=== PATIENT | female | born 1955 | race Two or more races ===

== ENCOUNTER 2020-01-01 12:50 | Outpatient (REF) | payer OTHER, SELFPAY | END 2020-01-01 12:51 | disposition home or self-care (01) | LOC: HO.LAB 12:50 | PROVIDERS: PCP Internal Medicine; Visit Provider Internal Medicine | DX: Z20.828 Contact with and (suspected) exposure to other viral communicable diseases (principal) | CPT/HCPCS: 87635 ==

== ENCOUNTER 2020-01-06 12:38 | Outpatient (REF) | payer OTHER, SELFPAY ==
[2020-01-06 14:04] LABS: MANUAL DIFF FLAG NO
[2020-01-06 14:08] LABS: Basophils Percent Auto 0.5 % (0-2); Eosinophils Absolute Auto 0.1 X10*3/uL (0.0-0.4); Eosinophils Percent Auto 1.6 % (0-4); Hematocrit 35.6 % (37-47); Hemoglobin 11.3 g/dl (12.0-16.0); Imm Gran Abs Auto 0.01 X10*3/uL (0.00-0.03); Imm Gran Pct Auto 0.2 % (0.0-0.4); Lymphocytes Percent Auto 16.1 % (20-40); Mean Corpuscular HGB Conc 31.7 g/dl (31.0-35.0); Mean Corpuscular Hemoglobin 28.9 pg (27.0-33.0); Mean Platelet Volume 9.8 fL (9.4-12.3); Monocytes Absolute Auto 0.5 X10*3/uL (0.1-1.2); Neutrophils Absolute Auto 4.5 X10*3/uL (2.0-8.3); Neutrophils Percent Auto 73.6 % (45-73); Platelet Count 259 X10*3/uL (160-400); Red Blood Count 3.91 X10*6/uL (4.20-5.50); Red Cell Distribution Width 13.2 % (11.0-16.0); White Blood Count 6.2 X10*3/uL (4.8-10.8)
[2020-01-06 14:39] LABS: Alanine Aminotransferase 34 U/L (0-31); Albumin Level 4.3 g/dL (3.5-5.0); Alkaline Phosphatase 104 U/L (39-117); Anion Gap 12 (12-20); Aspartate Amino Transferase 21 U/L (5-31); Bilirubin Total 0.5 mg/dL (0.0-1.0); Blood Urea Nitrogen 13 mg/dL (9-16); C Reactive Protein 0.86 mg/dL (< or = 0.50); Carbon Dioxide 28 mmol/L (22-29); Chloride 105 mmol/L (96-108); Estimated Glomerular Filt Rate > 60; Glucose Random 87 mg/dL (60-115); Potassium 4.2 mmol/l (3.3-5.1); Sodium 141 mmol/L (135-145); Total Protein 7.2 g/dL (6.5-8.0)
[2020-01-06 14:56] LABS: Erythrocyte Sedimentation Rate 34 MM/HR (0-20)
== END 2020-01-06 12:39 | disposition home or self-care (01) ==
LOC: HO.LAB 12:38
PROVIDERS: PCP Internal Medicine; Referring Provider Internal Medicine; Visit Provider Student in an Organized Health Care Education/Training Program
DX: M05.9 Rheumatoid arthritis with rheumatoid factor, unspecified (principal)
CPT/HCPCS: 36415; 80053; 85025; 85652; 86140; 99212

== ENCOUNTER 2020-04-01 17:29 | Outpatient (REF) | payer OTHER, SELFPAY | END 2020-04-01 17:30 | disposition home or self-care (01) | LOC: HO.LAB 17:29 | PROVIDERS: PCP Internal Medicine; Visit Provider Internal Medicine | DX: Z20.822 Contact with and (suspected) exposure to COVID-19 (principal) | CPT/HCPCS: 36415; C9803; U0003 ==

== ENCOUNTER → 2020-04-07 12:33 | Outpatient (BNVA) | payer OTHER, SELFPAY | PROVIDERS: PCP Internal Medicine; Referring Provider Internal Medicine; Visit Provider Student in an Organized Health Care Education/Training Program ==

== ENCOUNTER → 2020-05-19 14:39 | Outpatient (BNVA) | payer OTHER, SELFPAY | PROVIDERS: PCP Internal Medicine; Visit Provider Anesthesiology | DX: M05.9 Rheumatoid arthritis with rheumatoid factor, unspecified (principal); M85.80 Other specified disorders of bone density and structure, unspecified site; M17.0 Bilateral primary osteoarthritis of knee; M54.9 Dorsalgia, unspecified; Z79.899 Other long term (current) drug therapy | CPT/HCPCS: 99212 ==

== ENCOUNTER → 2020-06-07 08:32 | Outpatient (BNVA) | payer OTHER, SELFPAY | PROVIDERS: PCP Internal Medicine; Visit Provider Family Medicine Adult Medicine | DX: M05.9 Rheumatoid arthritis with rheumatoid factor, unspecified (principal); M85.80 Other specified disorders of bone density and structure, unspecified site; M17.0 Bilateral primary osteoarthritis of knee; M54.9 Dorsalgia, unspecified | CPT/HCPCS: 99212 ==

== ENCOUNTER 2020-06-27 12:10 | Outpatient (REF) | payer OTHER, SELFPAY ==
[2020-06-27 12:47] LABS: COVID-19 Test Negative (Negative)
== END 2020-06-27 12:11 | disposition home or self-care (01) ==
LOC: HO.LAB 12:10
PROVIDERS: Visit Provider Internal Medicine
DX: Z20.822 Contact with and (suspected) exposure to COVID-19 (principal)
CPT/HCPCS: 36415; 87635; C9803

== ENCOUNTER → 2020-07-06 16:33 | Outpatient (BNVA) | payer OTHER, SELFPAY | PROVIDERS: PCP Internal Medicine; Visit Provider Anesthesiology | DX: M17.0 Bilateral primary osteoarthritis of knee (principal); M05.9 Rheumatoid arthritis with rheumatoid factor, unspecified; M85.80 Other specified disorders of bone density and structure, unspecified site; Z79.899 Other long term (current) drug therapy | CPT/HCPCS: 99212 ==

== ENCOUNTER 2020-07-07 12:34 | Outpatient (REF) | payer OTHER, SELFPAY ==
--- NOTE | ~2020-07-07 | XR_ITS ---
EXAMINATION: XR KNEE, RIGHT XR KNEE, LEFT CLINICAL INFORMATION: Rheumatoid arthritis. COMPARISON: X-ray 02/13/2019. TECHNIQUE: Bilateral knees each 3 views. FINDINGS: LEFT KNEE: Yrlojelw-fs-bnhppp joint space loss in the medial compartment, moderate joint space loss in the lateral compartment and patellofemoral compartment. Subchondral cyst in the medial femoral condyle. Moderate to large effusion. No acute fracture or dislocation. RIGHT KNEE: Moderate medial greater than lateral compartment joint space loss. Moderate patellofemoral joint space loss. Moderate to large effusion. No acute fracture or dislocation. XR/XR knee RT 3V IMPRESSION: Left Knee: Tricompartment osteoarthritis, most prominent findings of vieghmio-jv-oitmes arthritis in the medial compartment. Interval progression from previous. Moderate to large effusion. Right Knee: Tricompartment osteoarthritis. More prominent changes of moderate arthritis in the medial compartment. Interval progression from previous. Moderate to large effusion.
--- NOTE | ~2020-07-07 | XR_ITS ---
EXAMINATION: XR KNEE, RIGHT XR KNEE, LEFT CLINICAL INFORMATION: Rheumatoid arthritis. COMPARISON: X-ray 02/13/2019. TECHNIQUE: Bilateral knees each 3 views. FINDINGS: LEFT KNEE: Nmanbwsd-nd-gpoxvw joint space loss in the medial compartment, moderate joint space loss in the lateral compartment and patellofemoral compartment. Subchondral cyst in the medial femoral condyle. Moderate to large effusion. No acute fracture or dislocation. RIGHT KNEE: Moderate medial greater than lateral compartment joint space loss. Moderate patellofemoral joint space loss. Moderate to large effusion. No acute fracture or dislocation. XR/XR knee LT 3V IMPRESSION: Left Knee: Tricompartment osteoarthritis, most prominent findings of nldylkjy-na-fyxygy arthritis in the medial compartment. Interval progression from previous. Moderate to large effusion. Right Knee: Tricompartment osteoarthritis. More prominent changes of moderate arthritis in the medial compartment. Interval progression from previous. Moderate to large effusion.
[2020-07-07 14:30] LABS: MANUAL DIFF FLAG NO
[2020-07-07 14:39] LABS: Basophils Percent Auto 0.6 % (0-2); Eosinophils Absolute Auto 0.1 X10*3/uL (0.0-0.4); Eosinophils Percent Auto 1.7 % (0-4); Hematocrit 35.2 % (37-47); Hemoglobin 11.3 g/dl (12.0-16.0); Imm Gran Abs Auto 0.02 X10*3/uL (0.00-0.03); Imm Gran Pct Auto 0.4 % (0.0-0.4); Lymphocytes Absolute Auto 1.1 X10*3/uL (1.2-4.9); Lymphocytes Percent Auto 20.6 % (20-40); Mean Corpuscular HGB Conc 32.1 g/dl (31.0-35.0); Mean Corpuscular Hemoglobin 28.4 pg (27.0-33.0); Mean Corpuscular Volume 88.4 fL (80-98); Mean Platelet Volume 9.5 fL (9.4-12.3); Monocytes Absolute Auto 0.5 X10*3/uL (0.1-1.2); Neutrophils Absolute Auto 3.5 X10*3/uL (2.0-8.3); Neutrophils Percent Auto 66.7 % (45-73); Platelet Count 334 X10*3/uL (160-400); Red Blood Count 3.98 X10*6/uL (4.20-5.50); Red Cell Distribution Width 13.7 % (11.0-16.0); White Blood Count 5.3 X10*3/uL (4.8-10.8)
[2020-07-07 15:24] LABS: Alanine Aminotransferase 10 U/L (0-31); Albumin Level 4.2 g/dL (3.5-5.0); Alkaline Phosphatase 106 U/L (39-117); Anion Gap 15 (12-20); Aspartate Amino Transferase 16 U/L (5-31); Bilirubin Total 0.3 mg/dL (0.0-1.0); Blood Urea Nitrogen 8 mg/dL (9-16); C Reactive Protein 3.71 mg/dL (< or = 0.50); Carbon Dioxide 25 mmol/L (22-29); Chloride 104 mmol/L (96-108); Estimated Glomerular Filt Rate > 60; Glucose Random 96 mg/dL (60-115); Potassium 3.8 mmol/L (3.3-5.1); Sodium 140 mmol/L (135-145); Total Protein 7.4 g/dL (6.5-8.0)
[2020-07-07 16:22] LABS: Erythrocyte Sedimentation Rate 55 MM/HR (0-20)
== END 2020-07-07 12:35 | disposition home or self-care (01) ==
LOC: HO.XRAY 12:34
PROVIDERS: PCP Internal Medicine; Visit Provider Student in an Organized Health Care Education/Training Program
DX: M05.9 Rheumatoid arthritis with rheumatoid factor, unspecified (principal); M85.80 Other specified disorders of bone density and structure, unspecified site
CPT/HCPCS: 36415; 73562; 80053; 85025; 85652; 86140; 99212

== ENCOUNTER 2020-07-28 12:40 | Outpatient (REF) | payer OTHER, SELFPAY | END 2020-07-28 12:41 | disposition home or self-care (01) | LOC: HO.HOSX 12:40 | PROVIDERS: Visit Provider Orthopaedic Surgery | DX: Z13.89 Encounter for screening for other disorder (principal) ==

== ENCOUNTER → 2020-08-03 09:37 | Outpatient (BNVA) | payer OTHER, SELFPAY | PROVIDERS: PCP Internal Medicine; Visit Provider Anesthesiology | DX: M05.9 Rheumatoid arthritis with rheumatoid factor, unspecified (principal); M85.80 Other specified disorders of bone density and structure, unspecified site; M17.0 Bilateral primary osteoarthritis of knee; M54.9 Dorsalgia, unspecified | CPT/HCPCS: 99212 ==

== ENCOUNTER → 2020-08-31 10:32 | Outpatient (BNVA) | payer OTHER, SELFPAY | PROVIDERS: PCP Internal Medicine; Visit Provider Anesthesiology | DX: M05.9 Rheumatoid arthritis with rheumatoid factor, unspecified (principal); M85.80 Other specified disorders of bone density and structure, unspecified site; M17.0 Bilateral primary osteoarthritis of knee; M54.9 Dorsalgia, unspecified | CPT/HCPCS: 99212 ==

== ENCOUNTER 2020-09-02 15:02 | Outpatient (REF) | payer OTHER, SELFPAY ==
--- NOTE | ~2020-09-02 | MM_ITS ---
EXAMINATION: BONE DENSITOMETRY CLINICAL INDICATION: Osteopenia. COMPARISON: Baseline BD dated 08/21/2018. TECHNIQUE: Using a 91 [employer] DXA System (software version: 13.1) manufactured by [employer], dual-energy x-ray absorptiometry was performed of the lumbar spine and left hip. The images are of good technical quality. Summary results are attached. FINDINGS: AP SPINE L1-L2 (excluding L3 and L4): The data of L1-L4 has been changed to exclude the L3 and L4 vertebral bodies, because degenerative changes at these levels may cause overestimation of lumbar spine density. Current: BMD 1.068 g/cm2, Z-score 0.3, T-score -0.8, normal, 5.3% increase from baseline (<5% change is not significant). Baseline: BMD 1.014 g/cm2. LEFT FEMUR, NECK: Current: BMD 0.753 g/cm2, Z-score -0.9, T-score -2.1, osteopenia. Baseline: BMD 0.762 g/cm2. LEFT FEMUR, TOTAL: Current: BMD 0.752 g/cm2, Z-score -1.2, T-score -2.0, osteopenia, 0.4% increase from baseline (<5% change is not significant). Baseline: BMD 0.749 g/cm2. IDENTIFIED RISK FACTORS: Menopause, height loss, glucocorticoids (chronic), rheumatoid arthritis. HISTORY OF FRACTURE: None listed. MEDICATIONS: Calcium. MM/XR DEXA axial skeleton IMPRESSION: 1. DIAGNOSIS: Osteopenia based on the lowest T-score value of -2.1 in the femoral neck applying World Health Organization criteria. 2. 10-YEAR FRACTURE RISK PREDICTION, FRAX: Major osteoporotic fracture (clinical spine, forearm, hip or shoulder) 21.1%. Hip fracture 4.0%. 3. Treatment Recommendations: NOF guidelines recommend consideration for treatment in postmenopausal women and men age 50 and older presenting with the following: -A hip or vertebral (clinical or morphometric) fracture. -T-score less than or equal to -2.5 at the femoral neck or spine after appropriate evaluation to exclude secondary causes. -Low bone mass at the hip or spine and a 10-year fracture probability by FRAX of greater than or equal to 3% for hip fracture or greater than or equal to 20% for major osteoporotic fracture based on the [place] adapted WHO algorithm. 4. Other Recommendations: All treatment decisions require clinical judgment and consideration of individual patient factors, including patient preferences, comorbidities, previous drug use, risk factors not captured in the FRAX model (e.g. frailty, falls, vitamin D deficiency, increased bone turnover, interval significant decline in bone density) and possible under or overestimation of fracture risk by FRAX. Additional medical evaluation for secondary cause of low bone mineral density may be appropriate. FUTURE SCAN RECOMMENDATION: People with diagnosed cases of osteoporosis or at high risk for fracture should have regular bone mineral density tests. For patients eligible for Medicare, routine testing is allowed once every 2 years. The testing frequency can be increased to one year for patients who have rapidly progressing disease, those who are receiving or discontinuing medical therapy to restore bone mass, or have additional risk factors.
== END 2020-09-02 15:03 | disposition home or self-care (01) ==
LOC: HO.MAMMO 15:02
PROVIDERS: Visit Provider Student in an Organized Health Care Education/Training Program
DX: Z13.820 Encounter for screening for osteoporosis (principal); M85.80 Other specified disorders of bone density and structure, unspecified site; Z78.0 Asymptomatic menopausal state; Z79.52 Long term (current) use of systemic steroids; M06.9 Rheumatoid arthritis, unspecified
CPT/HCPCS: 77080

== ENCOUNTER → 2020-09-15 11:10 | Outpatient (BNVA) | payer OTHER, SELFPAY | PROVIDERS: PCP Internal Medicine; Visit Provider Anesthesiology | DX: Z51.81 Encounter for therapeutic drug level monitoring (principal) | CPT/HCPCS: 99211 ==

== ENCOUNTER → 2020-09-28 10:32 | Outpatient (BNVA) | payer OTHER, SELFPAY | PROVIDERS: PCP Internal Medicine; Visit Provider Nurse Practitioner Family | DX: M05.9 Rheumatoid arthritis with rheumatoid factor, unspecified (principal); M85.80 Other specified disorders of bone density and structure, unspecified site; M17.0 Bilateral primary osteoarthritis of knee; M54.9 Dorsalgia, unspecified; Z79.899 Other long term (current) drug therapy | CPT/HCPCS: 99212 ==

== ENCOUNTER → 2020-11-02 14:04 | Outpatient (BNVA) | payer OTHER, SELFPAY | PROVIDERS: PCP Internal Medicine; Visit Provider Anesthesiology | DX: M05.9 Rheumatoid arthritis with rheumatoid factor, unspecified (principal); M85.80 Other specified disorders of bone density and structure, unspecified site; M17.0 Bilateral primary osteoarthritis of knee; M54.9 Dorsalgia, unspecified | CPT/HCPCS: 99212 ==

== ENCOUNTER → 2020-11-28 08:36 | Outpatient (BNVA) | payer OTHER, SELFPAY | PROVIDERS: PCP Internal Medicine; Visit Provider Anesthesiology | DX: M05.9 Rheumatoid arthritis with rheumatoid factor, unspecified (principal); M85.80 Other specified disorders of bone density and structure, unspecified site; M17.0 Bilateral primary osteoarthritis of knee; M54.9 Dorsalgia, unspecified | CPT/HCPCS: 99212 ==

== ENCOUNTER → 2020-12-28 08:38 | Outpatient (BNVA) | payer OTHER, SELFPAY | PROVIDERS: PCP Internal Medicine; Visit Provider Anesthesiology | DX: Z51.81 Encounter for therapeutic drug level monitoring (principal); M05.9 Rheumatoid arthritis with rheumatoid factor, unspecified; M85.80 Other specified disorders of bone density and structure, unspecified site; M17.0 Bilateral primary osteoarthritis of knee; M54.9 Dorsalgia, unspecified | CPT/HCPCS: 99212 ==

== ENCOUNTER → 2021-01-11 08:53 | Outpatient (BNVA) | payer OTHER, SELFPAY | PROVIDERS: PCP Internal Medicine; Visit Provider Nurse Practitioner Family | DX: M05.9 Rheumatoid arthritis with rheumatoid factor, unspecified (principal); M85.80 Other specified disorders of bone density and structure, unspecified site | CPT/HCPCS: 99212 ==

== ENCOUNTER → 2021-01-25 08:40 | Outpatient (BNVA) | payer OTHER, SELFPAY | PROVIDERS: PCP Internal Medicine; Visit Provider Anesthesiology | DX: Z51.81 Encounter for therapeutic drug level monitoring (principal); M05.9 Rheumatoid arthritis with rheumatoid factor, unspecified; M85.80 Other specified disorders of bone density and structure, unspecified site; M17.0 Bilateral primary osteoarthritis of knee; M54.9 Dorsalgia, unspecified | CPT/HCPCS: 99212 ==

== ENCOUNTER → 2021-02-22 08:53 | Outpatient (BNVA) | payer OTHER, SELFPAY | PROVIDERS: PCP Internal Medicine; Visit Provider Anesthesiology ==

== ENCOUNTER 2021-03-27 13:48 | Outpatient (REF) | payer OTHER, SELFPAY ==
[2021-03-27 14:36] LABS: MANUAL DIFF FLAG NO
[2021-03-27 14:43] LABS: Basophils Percent Auto 0.6 % (0-2); Eosinophils Absolute Auto 0.2 X10*3/uL (0.0-0.4); Hematocrit 35.1 % (37.0-47.0); Hemoglobin 11.5 g/dl (12.0-16.0); Imm Gran Abs Auto 0.02 X10*3/uL (0.00-0.03); Imm Gran Pct Auto 0.4 % (0.0-0.4); Lymphocytes Absolute Auto 1.2 X10*3/uL (1.2-4.9); Mean Corpuscular HGB Conc 32.8 g/dl (31.0-35.0); Mean Corpuscular Hemoglobin 28.2 pg (27.0-33.0); Mean Platelet Volume 9.7 fL (9.4-12.3); Monocytes Absolute Auto 0.5 X10*3/uL (0.1-1.2); Monocytes Percent Auto 9.8 % (2-11); Neutrophils Absolute Auto 3.5 x10*3/uL (2.0-8.3); Neutrophils Percent Auto 64.2 % (45-73); Platelet Count 297 X10*3/uL (160-400); Red Blood Count 4.08 X10*6/uL (4.20-5.50); Red Cell Distribution Width 14.6 % (11.0-16.0); White Blood Count 5.4 X10*3/uL (4.8-10.8)
[2021-03-27 15:08] LABS: Alanine Aminotransferase 8 U/L (0-31); Albumin Level 4.1 g/dL (3.5-5.0); Alkaline Phosphatase 81 U/L (39-117); Anion Gap 12 (12-20); Aspartate Amino Transferase 17 U/L (5-31); Bilirubin Total 0.4 mg/dL (0.0-1.0); Blood Urea Nitrogen 8 mg/dL (9-16); C Reactive Protein 0.88 mg/dL (< or = 0.50); Calcium 9.5 mg/dL (8.4-10.2); Carbon Dioxide 28 mmol/L (22-29); Chloride 105 mmol/L (96-108); Cholesterol 199 mg/dL; Estimated Glomerular Filt Rate > 60; Glucose Fasting 103 mg/dL (60-99); HDL Cholesterol 34 mg/dL; LDL Cholesterol Calculated 133 mg/dl; Potassium 3.9 mmol/L (3.3-5.1); Sodium 141 mmol/L (135-145); Total Protein 7.2 g/dL (6.5-8.0); Triglycerides 161 mg/dL
[2021-03-27 15:20] LABS: Erythrocyte Sedimentation Rate 31 MM/HR (0-20)
== END 2021-03-27 13:49 | disposition home or self-care (01) ==
LOC: HO.LAB 13:48
PROVIDERS: PCP Internal Medicine; Visit Provider Nurse Practitioner Family
DX: Z00.00 Encounter for general adult medical examination without abnormal findings (principal); Z13.0 Encounter for screening for diseases of the blood and blood-forming organs and certain disorders involving the immune mechanism; M05.9 Rheumatoid arthritis with rheumatoid factor, unspecified
CPT/HCPCS: 36415; 80053; 80061; 84443; 85025; 85652; 86140

== ENCOUNTER 2021-04-17 08:46 | Outpatient (REF) | payer OTHER, SELFPAY | END 2021-04-17 08:47 | disposition home or self-care (01) | LOC: HO.LAB 08:46 | PROVIDERS: PCP Internal Medicine; Visit Provider Internal Medicine | DX: Z20.822 Contact with and (suspected) exposure to COVID-19 (principal); R09.89 Other specified symptoms and signs involving the circulatory and respiratory systems; M05.9 Rheumatoid arthritis with rheumatoid factor, unspecified; M85.80 Other specified disorders of bone density and structure, unspecified site; M17.0 Bilateral primary osteoarthritis of knee | CPT/HCPCS: 99212; U0003; U0005 ==

== ENCOUNTER → 2021-06-20 10:23 | Outpatient (BNVA) | payer OTHER, SELFPAY | PROVIDERS: PCP Internal Medicine; Visit Provider Nurse Practitioner Family | DX: M17.0 Bilateral primary osteoarthritis of knee (principal); M05.9 Rheumatoid arthritis with rheumatoid factor, unspecified; Z79.899 Other long term (current) drug therapy | CPT/HCPCS: 99212 ==

== ENCOUNTER 2021-07-12 13:11 | Emergency (ER) | payer OTHER, SELFPAY ==
[2021-07-12 13:56] VITALS: BP 143/68; PULSE 77; RESP 16; TEMP 36.2; O2SAT 99; BMI 26.2
--- NOTE | 2021-07-12 14:22 | ED_ITS ---
HPI - General Adult General Chief complaint: General Medical Stated complaint: covid + bones ache Time Seen by Provider: 07/12/21 14:21 Source: patient Mode of arrival: ambulatory Limitations: no limitations History of Present Illness HPI narrative: Patient is a 66 year old female presenting to the emergency department today with chronic pain and COVID-19. Patient states that she has a history of chronic pain and was recently fired from her pain clinic. Patient states that she was on oxycodone 5mg BID as needed for pain for years before that. Patient states that the tramadol she is on currently isn't helping. Patient states that incidentally, she tested positive for COVID-19 today. Patient denies any dizziness, lightheadedness, abdominal pain, nausea, vomiting, fever, chills, blurry vision, double vision, loss of vision, chest pain, difficulty breathing, shortness of breath, back pain, night sweats, pain with urination, increased urinary frequency, increased urinary urgency, blood in her urine or stool, syncope or a near syncopal episode, recent trauma or falls, bowel incontinence, bladder incontinence, bowel retention, bladder retention, or any other complaints at this time. Onset (ago): year(s) Radiation: non-radiation Severity: moderate Severity scale (1-10): 6 Quality: dull and constant Pain Consistency: constant Relieving factors: none Exacerbating factors: none Associated symptoms: denies other symptoms Treatments prior to arrival: none Related Data Home Medications Medication Instructions Recorded Confirmed hydroxyzine HCl 25 mg tablet 25 mg PO BID PRN 07/08/21 Previous Rx's Medication Instructions Recorded clotrimazole-betamethasone 1 1 appl TOPICAL BID 14 Days #45 g 07/01/20 %-0.05 % topical cream naloxone 4 mg/actuation nasal 4 mg INTRANASAL Q2M PRN #2 ea 07/01/20 spray (Narcan) etanercept 50 mg/mL (1 mL) 50 mg SUBCUT QWEEK #4 ml 04/11/21 subcutaneous pen injector (Enfantasma Rivera) ferrous sulfate 325 mg (65 mg 325 mg PO DAILY #30 tab 04/21/21 iron) tablet,delayed release lorazepam 1 mg tablet 1 mg PO Q8H PRN #90 tab 06/13/21 lisinopril 10 mg tablet 10 mg PO DAILY #30 tab 07/08/21 tramadol 50 mg tablet 50 mg PO Q8H PRN #90 tab 07/11/21 oxycodone 5 mg tablet 5 mg PO BID PRN 3 Days #6 tab 07/12/21 Allergies Allergy/AdvReac Type Severity Reaction Status Date / Time buprenorphine [Belbuca] Allergy Intermediate nausea Verified 07/08/21 14:41 Review of Systems Constitutional: Constitutional: Reports no additional constitutional complaints, Denies chills, Denies fever(s) and Denies night sweats Eyes: Eyes: Reports no additional eye complaints, Denies blurry vision, Denies change in vision, Denies diplopia, Denies eye discharge, Denies loss of vision and Denies eye pain ENT: Denies dizziness Cardiovascular: Cardiovascular: Reports no additional cardiovascular complaints, Denies chest pain, Denies lightheadedness, Denies Loss of Consciousness and Denies dyspnea Respiratory: Respiratory: Reports no additional respiratory complaints and Denies dyspnea Gastrointestinal: Gastrointestinal: Reports no additional gastrointestinal complaints, Denies abdominal pain, Denies melena, Denies hematochezia, Denies change in bowel habits and Denies change in stool character Genitourinary: Genitourinary: Denies hematuria, Denies urinary frequency, Denies dysuria, Denies urinary incontinence, Denies urinary hesitancy and Denies urinary urgency Musculoskeletal: Musculoskeletal: Reports no additional musculoskeletal complaints, Denies numbness and Denies tingling Neurologic: Denies dizziness, Denies loss of vision, Denies numbness and Denies tingling Psychiatric: Psychiatric: Reports no additional psychiatric complaints Endocrine: Endocrine: Reports no additional endocrine complaints Hematologic/Lymphatic: Hematologic/Lymphatic: Reports no additional hematologic/lymphatic complaints Allergic/Immunologic: Allergic/Immunologic: Reports no additional allergic/immunologic complaints [facility] Past Medical History Attestation statement: The following information was validated with the patient. Source: old records reviewed Medical History Back pain Opiate abuse, episodic Osteoarthritis of both knees Osteopenia determined by x-ray Primary osteoarthritis of knees, bilateral Seropositive rheumatoid arthritis Surgical History History of appendectomy History of cholecystectomy History of D&C History of tonsillectomy Family History Family History Father Acute CVA (cerebrovascular accident) Mother Hypertension Hypercholesterolemia Brother Liver transplant status Family history of thyroid problem Social History Social History Housing: House Alcohol intake: never Patient Tobacco Use Status: Former Tobacco user e-Cigarette/Vaping Use: Never Used Second Hand Smoke Exposure: No Advance Directives: No Advance Directives Information Provided: No Current occupational status: employed Cognitive needs: No Hearing needs: No Vision needs: No Physical Exam ED Vital Signs: Vital Signs - 24 hr 07/12/21 13:56 Temperature 97.1 F Pulse Rate 77 Respiratory Rate 16 Blood Pressure 143/68 H Pulse Oximetry 99 BMI result Body Mass Index 26.2 Const General: cooperative, no acute distress, alert and awake Nutritional Appearance: well nourished Orientation/consciousness: patient oriented x3 Limitations: no limitations HENMT Head: Yes normal to inspection and Yes atraumatic Ears: hearing grossly normal bilaterally and external ears normal General nose exam: Normal external nose present, no nasal discharge noted and no epistaxis Face and sinus: Yes normal facial exam, No abrasion and No laceration Mouth: Normal oral and palatal mucosa present, no drooling and no muffled voice Eyes General: appearance normal, both eyes and all related structures Periorbital: periorbital findings normal Eyelids: Yes eyelids normal Conjunctivae: conjunctivae normal Pupils: Equal, round and reactive pupils present EOM: EOMs intact bilaterally Neck Neck: Yes normal visual inspection, Yes full ROM and Yes no lymphadenopathy Chest Chest palpation & inspection: normal inspection of the chest Resp Effort & Inspection: normal respiratory effort and able to speak in complete sentences Auscultation: clear to auscultation bilaterally Cardio Rate: regular rate Rhythm: regular rhythm GI Inspection: Yes normal to inspection Neuro General: patient oriented x3 and moves all extremities Cranial nerves: Yes Equal, round and reactive pupils present Cognition (Neuro): normal cognition Motor exam (neuro): 5/5 motor strength present throughout Sensory Exam: Normal double simultaneous stimulation for sensation Coordination: [id number]-[id number] test normal Extrem General: Yes normal to inspection, Yes full ROM and Yes capillary refill normal Psych Appearance: grossly normal Mental Status: mental status grossly normal Affect: normal affect Attitude: cooperative Thought process: Normal thought process present Thought content: Normal thought content present Insight: Good insight present (Psych) Medical Decision Making MDM Narrative Medical decision making narrative: Patient is a 66 year old female presenting to the emergency department today with chronic pain and COVID-19. Patient's physical exam was unremarkable. I explained my physical exam findings to the patient. I answered all questions asked by the patient. I explained to the patient that I would provide her a dose of Oxycodone today, and 3 days worth of tablets for her to get established with a new pain management provider. I explained to the patient that it is inappropriate to continue to come to the Emergency Department for chronic pain medication refills and that she needs to establish with a pain specialist. Patient received PO Oxycodone which she stated helped her symptoms significantly. I stressed the importance of the patient taking her medication as prescribed. I stressed the importance of the patient following up with her primary care provider and establishing with a new pain specialist. I stressed the importance of the patient returning to the emergency department immediately if her symptoms were to worsen or if she were to develop any dizziness, shortness of breath, difficulty breathing, chest pain, blurry vision, loss of vision, nausea, vomiting, abdominal pain, fever, chills, back pain, or any other complaints. Patient verbalized agreement and understanding with this treatment plan and discharge. Differential Diagnosis Differential Diagnosis: chronic pain Medical Records Medical records reviewed: Yes I reviewed the patient's medical records. Discharge Plan Discharge Clinical Impression: Chronic pain syndrome Patient Disposition: Home, Self-Care Instructions: Chronic Pain (ED) Additional Instructions: Follow up with your primary care provider and a pain specialist. Return to the emergency department immediately if your symptoms worsen or if you develop any dizziness, shortness of breath, difficulty breathing, chest pain, blurry vision, loss of vision, nausea, vomiting, abdominal pain, fever, chills, back pain, or any other complaints. Prescriptions: New oxycodone 5 mg tablet 5 mg PO BID PRN (Reason: pain) 3 Days Qty: 6 0RF No Action clotrimazole-betamethasone 1-0.05 % cream 1 appl topical BID 14 Days Qty: 45 0RF Narcan 4 mg/actuation spray,non-aerosol 4 mg intranasal Q2M PRN (Reason: opioid overdose) Qty: 2 0RF Rx Instructions: spray 1 dose into ONE nostril; alternate nostrils w each dose until help arrives Enbrel SureClick 50 mg/mL (1 mL) pen injector 50 mg subcut QWEEK Qty: 4 3RF ferrous sulfate 325 mg (65 mg iron) tablet,delayed release (DR/EC) 325 mg PO DAILY Qty: 30 5RF lorazepam 1 mg tablet 1 mg PO Q8H PRN (Reason: agitation) Qty: 90 5RF tramadol 50 mg tablet 50 mg PO Q8H PRN (Reason: pain) Qty: 90 0RF hydroxyzine HCl 25 mg tablet 25 mg PO BID PRN (Reason: anxiety) 0RF lisinopril 10 mg tablet 10 mg PO DAILY Qty: 30 0RF [place] [facility] [place] [facility] [place]Provider Group] (Call and get established with a pain specialist. ) [facility] [Provider Group] [place] [facility] Pain Management [Outside] Pain Management [Outside] Naveen Urias MD [Primary Care Provider] - Interventions: ED Discharge Assessment Last Done: 07/12/21 15:11 Discharge Date/Time: 07/12/21 15:18 Print Language: Burkinan
[2021-07-12] MEDS: oxyCODONE HCl Immed Release 5 MG TABLET PO (15:08)
== END 2021-07-12 15:18 | disposition home or self-care (01) ==
PROVIDERS: Emergency Provider Emergency Medicine; PCP Internal Medicine
DX: G89.4 Chronic pain syndrome (principal); U07.1 COVID-19; M05.9 Rheumatoid arthritis with rheumatoid factor, unspecified
CPT/HCPCS: 99283

== ENCOUNTER 2021-08-03 17:10 | Outpatient (REF) | payer OTHER, SELFPAY ==
[2021-08-03 17:16] LABS: MANUAL DIFF FLAG NO
[2021-08-03 17:31] LABS: Basophils Percent Auto 0.5 % (0-2); Eosinophils Absolute Auto 0.2 X10*3/uL (0.0-0.4); Eosinophils Percent Auto 2.8 % (0-4); Hematocrit 32.3 % (37.0-47.0); Imm Gran Abs Auto 0.01 X10*3/uL (0.00-0.03); Imm Gran Pct Auto 0.2 % (0.0-0.4); Lymphocytes Absolute Auto 1.3 X10*3/uL (1.2-4.9); Lymphocytes Percent Auto 21.6 % (20-40); Mean Corpuscular Hemoglobin 26.3 pg (27.0-33.0); Mean Platelet Volume 9.2 fL (9.4-12.3); Monocytes Absolute Auto 0.7 X10*3/uL (0.1-1.2); Monocytes Percent Auto 11.1 % (2-11); Neutrophils Absolute Auto 3.8 x10*3/uL (2.0-8.3); Neutrophils Percent Auto 63.8 % (45-73); Platelet Count 413 X10*3/uL (160-400); Red Cell Distribution Width 14.2 % (11.0-16.0)
[2021-08-03 18:04] LABS: Erythrocyte Sedimentation Rate 90 MM/HR (0-20)
[2021-08-03 18:10] LABS: Alanine Aminotransferase 9 U/L (0-31); Albumin Level 3.8 g/dL (3.5-5.0); Alkaline Phosphatase 117 U/L (39-117); Anion Gap 12 (12-20); Aspartate Amino Transferase 14 U/L (5-31); Bilirubin Total 0.5 mg/dL (0.0-1.0); Blood Urea Nitrogen 7 mg/dL (9-16); C Reactive Protein 4.97 mg/dL (< or = 0.50); Calcium 9.2 mg/dL (8.4-10.2); Carbon Dioxide 30 mmol/L (22-29); Chloride 105 mmol/L (96-108); Estimated Glomerular Filt Rate > 60; Glucose Random 90 mg/dL (60-115); Potassium 3.4 mmol/L (3.3-5.1); Sodium 144 mmol/L (135-145); Total Protein 7.2 g/dL (6.5-8.0)
== END 2021-08-03 17:11 | disposition home or self-care (01) ==
LOC: HO.LAB 17:10
PROVIDERS: PCP Internal Medicine; Visit Provider Nurse Practitioner Family
DX: M05.9 Rheumatoid arthritis with rheumatoid factor, unspecified (principal)
CPT/HCPCS: 36415; 80053; 85025; 85652; 86140

== ENCOUNTER → 2021-08-08 12:39 | Outpatient (BNVA) | payer OTHER, SELFPAY | PROVIDERS: PCP Internal Medicine; Visit Provider Nurse Practitioner Family | DX: M05.9 Rheumatoid arthritis with rheumatoid factor, unspecified (principal); M85.80 Other specified disorders of bone density and structure, unspecified site; M17.0 Bilateral primary osteoarthritis of knee | CPT/HCPCS: 99212 ==

== ENCOUNTER 2021-08-08 18:12 | Emergency (ER) | payer OTHER, SELFPAY ==
--- NOTE | ~2021-08-08 | XR_ITS ---
Examination: XR knee RT 3V, XR knee LT 3V Indication: pain Comparison: 07/07/2020 images of both knees Technique: 4 plain film views of each knee obtained Findings: Right: Large knee joint effusion. Tricompartmental degenerative changes are noted with loss of disc height and osteophyte formation more so in the medial compartment. I do not appreciate any acute superimposed fracture or dislocation on these extensive degenerative changes. Left: Large joint effusion. Extensive tricompartmental degenerative changes seen more so in the medial compartment with more extensive joint space loss and subchondral lucency within the medial tibial plateau which has become more prominent when compared to the 07/07/2020 study XR/XR knee LT 3V Impression: Dense tricompartmental degenerative changes. Large bilateral joint effusions. Overall this degenerative changes have been present but likely slightly progressed from the prior study. No acute fracture or dislocation.
--- NOTE | ~2021-08-08 | CT_ITS ---
EXAMINATION: CT HEAD WITHOUT CONTRAST CT CERVICAL SPINE WITHOUT CONTRAST CLINICAL INFORMATION: Fall. Head trauma. Trauma to neck COMPARISON: None. TECHNIQUE: Imaging was performed from the skull base to vertex without intravenous administration of contrast. In addition, helical noncontrast CT imaging was acquired through the cervical spine and source images were reviewed along with axial reconstructions and sagittal and coronal MPRs. [This CT examination was performed using dose optimization techniques as appropriate, variously including the following: *Automated exposure control *Adjustment of mA and/or kV according to patient size (this includes techniques or standardized protocols for targeted exams where dose is matched to indication/reason for exam; i.e. extremities or head) *Use of iterative reconstruction technique] DLP: 991 mGy-cm FINDINGS: HEAD: No intracranial mass, hemorrhage, or midline shift is visualized. The ventricles and sulci are proportional. No extra-axial collections are identified. There is sinus mucosal disease is partial opacification of the right and left dependent sphenoid sinuses. The mastoid air cells and middle ear cavities are normally aerated. CERVICAL SPINE: There is no evidence of acute cervical spine fracture. Vertebral bodies remain normal in height. Cervical vertebrae have normal alignment. There is multilevel degenerative spondylosis of the cervical spine with disc height narrowing and endplate spurs and facet joint arthrosis No pre- or paravertebral soft tissue abnormality is identified. Limited assessment of the lung apices is unremarkable. CT/CT cervical spine wo con IMPRESSION: 1. No acute intracranial pathology. 2. No CT evidence of acute cervical spine fracture or traumatic subluxation
--- NOTE | ~2021-08-08 | XR_ITS ---
Examination: XR knee RT 3V, XR knee LT 3V Indication: pain Comparison: 07/07/2020 images of both knees Technique: 4 plain film views of each knee obtained Findings: Right: Large knee joint effusion. Tricompartmental degenerative changes are noted with loss of disc height and osteophyte formation more so in the medial compartment. I do not appreciate any acute superimposed fracture or dislocation on these extensive degenerative changes. Left: Large joint effusion. Extensive tricompartmental degenerative changes seen more so in the medial compartment with more extensive joint space loss and subchondral lucency within the medial tibial plateau which has become more prominent when compared to the 07/07/2020 study XR/XR knee RT 3V Impression: Dense tricompartmental degenerative changes. Large bilateral joint effusions. Overall this degenerative changes have been present but likely slightly progressed from the prior study. No acute fracture or dislocation.
--- NOTE | ~2021-08-08 | CT_ITS ---
EXAMINATION: CT HEAD WITHOUT CONTRAST CT CERVICAL SPINE WITHOUT CONTRAST CLINICAL INFORMATION: Fall. Head trauma. Trauma to neck COMPARISON: None. TECHNIQUE: Imaging was performed from the skull base to vertex without intravenous administration of contrast. In addition, helical noncontrast CT imaging was acquired through the cervical spine and source images were reviewed along with axial reconstructions and sagittal and coronal MPRs. [This CT examination was performed using dose optimization techniques as appropriate, variously including the following: *Automated exposure control *Adjustment of mA and/or kV according to patient size (this includes techniques or standardized protocols for targeted exams where dose is matched to indication/reason for exam; i.e. extremities or head) *Use of iterative reconstruction technique] DLP: 991 mGy-cm FINDINGS: HEAD: No intracranial mass, hemorrhage, or midline shift is visualized. The ventricles and sulci are proportional. No extra-axial collections are identified. There is sinus mucosal disease is partial opacification of the right and left dependent sphenoid sinuses. The mastoid air cells and middle ear cavities are normally aerated. CERVICAL SPINE: There is no evidence of acute cervical spine fracture. Vertebral bodies remain normal in height. Cervical vertebrae have normal alignment. There is multilevel degenerative spondylosis of the cervical spine with disc height narrowing and endplate spurs and facet joint arthrosis No pre- or paravertebral soft tissue abnormality is identified. Limited assessment of the lung apices is unremarkable. CT/CT head/brain wo con IMPRESSION: 1. No acute intracranial pathology. 2. No CT evidence of acute cervical spine fracture or traumatic subluxation
[2021-08-08 19:03] VITALS: BP 121/66; PULSE 71; RESP 18; TEMP 36.9; O2SAT 96; BMI 25.6
--- NOTE | 2021-08-08 21:08 | ED.GENADULT ---
HPI - General Adult General Chief complaint: General Medical <FREDO Sanon - Last Filed: 08/08/21 22:36> Stated complaint: Knee Neck Back Pain No Injury <FREDO Sanon - Last Filed: 08/08/21 22:36> Time Seen by Provider: 08/08/21 20:19 <FREDO Sanon - Last Filed: 08/08/21 22:36> Source: patient <FREDO Sanon Last Filed: 08/08/21 22:36> Mode of arrival: ambulatory <FREDO Sanon Last Filed: 08/08/21 22:36> History of Present Illness HPI narrative: 66-year-old female with a past medical history of osteoarthritis, opiate abuse, rheumatoid arthritis, presenting to the ED complaining of acute on chronic bilateral knee pain > left, and neck and low back pain s/p falling backwards onto chair yesterday. Admits when standing for too long her knees crack and give out which caused her to fall backwards in to chair yesterday. Denies head trauma or LOC. Denies taking anticoagulation. Reports chronic headaches unchanged. Denies chest pain, shortness of breath, numbness, tingling, weakness, urinary incontinence/retention <FREDO Sanon Last Filed: 08/08/21 22:36> Onset (ago): day(s) <FREDO Sanon - Last Filed: 08/08/21 22:36> Related Data Home medications: Previous Rx's Medication Instructions Recorded naloxone 4 mg/actuation nasal 4 mg INTRANASAL Q2M PRN #2 ea 07/01/20 spray (Narcan) etanercept 50 mg/mL (1 mL) 50 mg SUBCUT QWEEK #4 ml 04/11/21 subcutaneous pen injector (Enbrel SureClick) ferrous sulfate 325 mg (65 mg 325 mg PO DAILY #30 tab 04/21/21 iron) tablet,delayed release lorazepam 1 mg tablet 1 mg PO Q8H PRN #90 tab 06/13/21 lisinopril 10 mg tablet 10 mg PO DAILY #30 tab 07/08/21 tramadol 50 mg tablet 50 mg PO Q8H PRN #90 tab 07/12/21 alendronate 70 mg tablet 70 mg PO QWEEK #12 tab 08/08/21 cyclobenzaprine 5 mg tablet 5 mg PO Q8H PRN 5 Days #14 tab 08/08/21 lidocaine 5 % topical patch 1 patch TOPICAL DAILY PRN #30 ea 08/08/21 (Lidoderm) MDD remove after 12 hours prednisone 5 mg tablet See Rx Instructions PO DAILY #30 08/08/21 tab <FREDO Sanon - Last Filed: 08/08/21 22:36> Allergies/adverse reactions: Allergies Allergy/AdvReac Type Severity Reaction Status Date / Time buprenorphine [Belbuca] Allergy Intermediate nausea Verified 08/08/21 19:03 <FREDO Sanon Last Filed: 08/08/21 22:36> Review of Systems Review of Systems: Constitutional: No Fever, No Chills, No Fatigue, No Malaise ENT/Mouth: No Ear Pain, No Nasal Congestion, No sore throat, No Swallowing Difficulty Eyes: No Eye Pain, No Swelling, No Redness Cardiovascular: No Chest Pain, No SOB, No Edema, No Palpitations Respiratory: No Cough, No Sputum, No Dyspnea Gastrointestinal: No Nausea, No Vomiting, No Diarrhea, No Constipation, No Abdominal pain Genitourinary: No Urinary Incontinence/retention, No Urgency, No Flank Pain, No Urinary Flow Changes Musculoskeletal: + joint pain, No Myalgias, No Joint Swelling Skin: No Skin Lesions, No rash Neuro: No Weakness, No Numbness, No Paresthesias, No Loss of Consciousness, No Dizziness, +chronic Headache <FREDO Sanon Last Filed: 08/08/21 22:36> Yes all other systems are reviewed and are negative <FREDO Sanon Last Filed: 08/08/21 22:36> Neurologic: Denies Abnormal speech present <FREDO Sanon Last Filed: 08/08/21 22:36> [facility] Past Medical History Attestation statement: The following information was validated with the patient. <FREDO Sanon Last Filed: 08/08/21 22:36> Medical History: Medical History Back pain Opiate abuse, episodic Osteoarthritis of both knees Osteopenia determined by x-ray Primary osteoarthritis of knees, bilateral Seropositive rheumatoid arthritis <FREDO Sanon - Last Filed: 08/08/21 22:36> Surgical History: Surgical History History of appendectomy History of cholecystectomy History of D&C History of tonsillectomy <FREDO Sanon Last Filed: 08/08/21 22:36> Family History Family History: Family History Father Acute CVA (cerebrovascular accident) Mother Hypertension Hypercholesterolemia Brother Liver transplant status Family history of thyroid problem <FREDO Sanon Last Filed: 08/08/21 22:36> Social History Social History: Social History Housing: House Alcohol intake: never Patient Tobacco Use Status: Former Tobacco user e-Cigarette/Vaping Use: Never Used Second Hand Smoke Exposure: No Advance Directives: No Advance Directives Information Provided: No service: No Current occupational status: employed Cognitive needs: No Hearing needs: No Vision needs: No <FREDO Sanon Last Filed: 08/08/21 22:36> Physical Exam ED Vital Signs: Vital Signs - 24 hr 08/08/21 19:03 08/08/21 21:54 Temperature 98.4 F 98.2 F Pulse Rate 71 66 Respiratory Rate 18 16 Blood Pressure 121/66 138/71 Pulse Oximetry 96 98 BMI result Body Mass Index 25.6 <FREDO Sanon Last Filed: 08/08/21 22:36> Const General: cooperative, healthy appearing, no acute distress, alert and awake <FREDO Sanon Last Filed: 08/08/21 22:36> Orientation/consciousness: patient oriented x3 <FRDEO Sanon Last Filed: 08/08/21 22:36> Limitations: no limitations <FREDO Sanon Last Filed: 08/08/21 22:36> HENMT Head: Yes normal to inspection, Yes atraumatic and No Hatfield's sign <FREDO Sanon Last Filed: 08/08/21 22:36> Ears: hearing grossly normal bilaterally <FREDO Sanon - Last Filed: 08/08/21 22:36> General nose exam: Normal external nose present <Odalys Aldridge PA - Last Filed: 08/08/21 22:36> Face and sinus: Yes normal facial exam <Odalys Aldridge PA - Last Filed: 08/08/21 22:36> Eyes General: appearance normal, both eyes and all related structures <Odalys Aldridge PA - Last Filed: 08/08/21 22:36> Pupils: Equal, round and reactive pupils present <Odalys Aldridge PA - Last Filed: 08/08/21 22:36> EOM: EOMs intact bilaterally <Odalys Poulshadi PA - Last Filed: 08/08/21 22:36> Neck Other: No midline cervical spinous tenderness/step-off or deformity. Bilateral paraspinal tenderness to palpation <Odalys Aldridge PA - Last Filed: 08/08/21 22:36> Neck: Yes normal visual inspection and Yes no meningeal signs <Odalys Aldridge PA - Last Filed: 08/08/21 22:36> Resp Effort & Inspection: normal respiratory effort and no respiratory distress <Odalys Aldridge PA - Last Filed: 08/08/21 22:36> Cardio Rate: regular rate <Odalys Aldridge PA - Last Filed: 08/08/21 22:36> Heart sounds: S1 normal heart sound present and S2 normal heart sound present <Odalys Aldridge PA - Last Filed: 08/08/21 22:36> GI Inspection: Yes normal to inspection <Odalys Aldridge PA - Last Filed: 08/08/21 22:36> Back/Spine/Pelvis Other: No midline thoracic/lumbar spinous tenderness/step-off or deformity. + right-sided lumbar paraspinal/MSK tenderness to palpation <Odalys Aldridge PA - Last Filed: 08/08/21 22:36> Skin Rashes: no rashes <Odalys Aldridge PA - Last Filed: 08/08/21 22:36> Wounds: no wounds <Odalys Aldridge PA - Last Filed: 08/08/21 22:36> Neuro General: patient oriented x3, gait normal, tone normal, moves all extremities, no meningeal signs, no focal motor deficits and CN's II-XI intact bilaterally <FREDO Sanon - Last Filed: 08/08/21 22:36> Cranial nerves: Yes Equal, round and reactive pupils present <FREDO Sanon Last Filed: 08/08/21 22:36> Cognition (Neuro): normal cognition <FREDO Sanon Last Filed: 08/08/21 22:36> Speech: No Abnormal speech present <FREDO Sanon Last Filed: 08/08/21 22:36> Gait exam (Neuro): Normal gait present <FREDO Sanon Last Filed: 08/08/21 22:36> Extrem Other: Bilateral knees mildly tender to palpation. No focal tenderness. No appreciable deformity/crepitus. Full range of motion intact. Neurovascular intact distally. <FREDO Sanon Last Filed: 08/08/21 22:36> General: Yes normal to inspection and Yes full ROM <FREDO Sanon - Last Filed: 08/08/21 22:36> Course Course Course Narrative: XR knee RT 3V/ XR knee LT 3V Impression: Dense tricompartmental degenerative changes. Large bilateral joint effusions. Overall this degenerative changes have been present but likely slightly progressed from the prior study. No acute fracture or dislocation. CT head/brain wo con/ CT cervical spine wo con IMPRESSION: 1. No acute intracranial pathology. 2. No CT evidence of acute cervical spine fracture or traumatic subluxation >> results discussed with patient. Discussed need follow-up with PCP which she reports has an appointment on the . Patient requesting oxycodone, discussed with her I will not be prescribing as she is already on opiate/patient's history of opiate misuse & discharge from pain management. she verbalized understanding and feels safe for discharge home <FREDO Sanon Last Filed: 08/08/21 22:36> Medical Decision Making MDM Narrative Medical decision making narrative: 66-year-old female with a past medical history of osteoarthritis, opiate abuse, rheumatoid arthritis, presenting to the ED complaining of acute on chronic bilateral knee pain > left, and neck and low back pain s/p falling backwards onto chair yesterday. On exam vital signs stable, NAD/nontoxic appearing. Physical exam as above. Concern for osteoarthritis/rheumatoid arthritis flare vs MSK pain/spasming. Rule out fracture. Lower concern for ICH/hemorrhage. Low concern for cauda equina/cord compression. No evidence of infection Patient requesting oxycodone. Upon chart review patient was discharged from pain management due to opiate misuse, patient also reports her PCP refuses to prescribe her oxycodone and currently prescribes tramadol. Patient admits takes tramadol daily with mild relief however is looking for something stronger. Plan: Knee x-rays, head/C-spine CT <FREDO Sanon - Last Filed: 08/08/21 22:36> Medical Records Medical records reviewed: Yes I reviewed the patient's medical records. <FREDO Sanon Last Filed: 08/08/21 22:36> Lab Data Lab results reviewed: Yes I reviewed the patient's lab results. <FREDO Sanon Last Filed: 08/08/21 22:36> Discharge Plan Discharge Clinical Impression: Osteoarthritis of both knees, Back pain, Neck pain, Chronic headache <FREDO Snaon Last Filed: 08/08/21 22:36> Patient Disposition: Home, Self-Care <FREDO Sanon Last Filed: 08/08/21 22:36> Instructions: Pain Management (ED), Narcotic Safety (ED), Back Pain (ED), Neck Pain (ED) <FREDO Sanon Last Filed: 08/08/21 22:36> Additional Instructions: Your knee x-rays show bilateral joint effusions as well as degenerative changes in both knees The CT scan of her head and neck are unremarkable. Continue taking home prescribed pain medication In addition Flexeril as a muscle relaxer, take at night as it makes you drowsy, do not drive, drink alcohol, or operate machinery while taking. Lidoderm patches or numbing patches, apply to painful area. Rest. Apply ice and or heat. Follow up with her doctor. Follow-up with orthopedics as needed. Follow-up with pain management <FREDO Sanon Last Filed: 08/08/21 22:36> Prescriptions: New lidocaine [Lidoderm] 5 % adhesive patch,medicated 1 patch topical DAILY MDD remove after 12 hours PRN (Reason: pain) Qty: 30 0RF Rx Instructions: leave on most painful area for up to 12 hrs cyclobenzaprine 5 mg tablet 5 mg PO Q8H PRN (Reason: pain (scale score 7-10)) 5 Days Qty: 14 0RF No Action Narcan 4 mg/actuation spray,non-aerosol 4 mg intranasal Q2M PRN (Reason: opioid overdose) Qty: 2 0RF Rx Instructions: spray 1 dose into ONE nostril; alternate nostrils w each dose until help arrives Enbrel SureClick 50 mg/mL (1 mL) pen injector 50 mg subcut QWEEK Qty: 4 3RF ferrous sulfate 325 mg (65 mg iron) tablet,delayed release (DR/EC) 325 mg PO DAILY Qty: 30 5RF lorazepam 1 mg tablet 1 mg PO Q8H PRN (Reason: agitation) Qty: 90 5RF tramadol 50 mg tablet 50 mg PO Q8H PRN (Reason: pain) Qty: 90 0RF lisinopril 10 mg tablet 10 mg PO DAILY Qty: 30 0RF alendronate 70 mg tablet 70 mg PO QWEEK Qty: 12 0RF prednisone 5 mg tablet See Rx Instructions PO DAILY Qty: 30 0RF Rx Instructions: take 20 mg (4 tabs) by mouth daily for 3 days, then 15 mg( 3 tabs) by mouth daily for 3 days, then 10 mg (2 tabs) by mouth daily for 3 days, then 5 mg (1 tab) by mouth daily for 3 days, then stop. <FREDO Sanon - Last Filed: 08/08/21 22:36> Referrals: [facility] Orthopedic Surgeons [Provider Group] [facility] Pain Management [Provider Group] Naveen Urias MD [Primary Care Provider] - <FREDO Sanon - Last Filed: 08/08/21 22:36> Interventions: ED Discharge Assessment Last Done: 08/08/21 23:02 <FREDO Sanon - Last Filed: 08/08/21 22:36> Discharge Date/Time: 08/08/21 23:10 <FREDO Sanon - Last Filed: 08/08/21 22:36>
[2021-08-08 21:54] VITALS: BP 138/71; PULSE 66; RESP 16; TEMP 36.8; O2SAT 98
[2021-08-08] MEDS: Cyclobenzaprine HCl 10 MG TABLET PO (22:58)
[2021-08-08] MEDS: Ketorolac Tromethamine 30 MG/ML VIAL IM (22:59)
== END 2021-08-08 23:10 | disposition home or self-care (01) ==
PROVIDERS: Emergency Provider Emergency Medicine; PCP Internal Medicine
DX: M17.0 Bilateral primary osteoarthritis of knee (principal); M25.462 Effusion, left knee; M25.461 Effusion, right knee; M54.50 Low back pain, unspecified; M54.2 Cervicalgia; R51.9 Headache, unspecified; G89.29 Other chronic pain; F11.20 Opioid dependence, uncomplicated
CPT/HCPCS: 70450; 72125; 73562; 96372; 99283; 99284; J1885

== ENCOUNTER 2021-09-27 14:30 | Outpatient (REF) | payer OTHER, SELFPAY ==
--- NOTE | ~2021-09-27 | XR_ITS ---
EXAMINATION: XR KNEE, RIGHT XR KNEE, LEFT CLINICAL INFORMATION: M05.9 - Rheumatoid arthritis with rheumatoid factor COMPARISON: Bilateral knee radiographs 08/08/2021, 07/07/2020 TECHNIQUE: Each knee is imaged in 4 views for a total of 8 views. FINDINGS: Right knee: No fracture, dislocation, destructive process. There is tricompartment joint narrowing, somewhat greater medial compartment with associated small marginal osteophyte femoral condyle and lateral tibial plateau. No erosive change or definite chondrocalcinosis. Axial view patella shows no lateralization or tilting. There is moderate effusion, decreased from 08/08/2021. Left knee: No fracture, dislocation, or destructive process. There is tricompartment joint narrowing, greater than that on the right and greatest medial compartment. Again, there are subchondral cysts medial femoral condyle, mild subchondral sclerosis, and marginal osteophytes. There is a oval cystic lesion within the lateral femoral condyle approximately 1.5 x 1.1 cm. No interval enlargement or matrix mineralization or periostitis. Axial view patella shows no significant lateralization or tilting. There is large effusion, slightly decreased from prior exam. XR/XR knee RT 3V IMPRESSION: Right: -Tricompartment joint narrowing. No erosive change. -Moderate effusion decreased from 08/08/2021. Left: -Tricompartment joint narrowing greater than on right and greatest medial compartment. -Oval nodule mineralized cystic lesion lateral femoral condyle, stable. -Large suprapatellar effusion slightly decreased from 08/08/2021.
--- NOTE | ~2021-09-27 | XR_ITS ---
EXAMINATION: XR KNEE, RIGHT XR KNEE, LEFT CLINICAL INFORMATION: M05.9 - Rheumatoid arthritis with rheumatoid factor COMPARISON: Bilateral knee radiographs 08/08/2021, 07/07/2020 TECHNIQUE: Each knee is imaged in 4 views for a total of 8 views. FINDINGS: Right knee: No fracture, dislocation, destructive process. There is tricompartment joint narrowing, somewhat greater medial compartment with associated small marginal osteophyte femoral condyle and lateral tibial plateau. No erosive change or definite chondrocalcinosis. Axial view patella shows no lateralization or tilting. There is moderate effusion, decreased from 08/08/2021. Left knee: No fracture, dislocation, or destructive process. There is tricompartment joint narrowing, greater than that on the right and greatest medial compartment. Again, there are subchondral cysts medial femoral condyle, mild subchondral sclerosis, and marginal osteophytes. There is a oval cystic lesion within the lateral femoral condyle approximately 1.5 x 1.1 cm. No interval enlargement or matrix mineralization or periostitis. Axial view patella shows no significant lateralization or tilting. There is large effusion, slightly decreased from prior exam. XR/XR knee LT 3V IMPRESSION: Right: -Tricompartment joint narrowing. No erosive change. -Moderate effusion decreased from 08/08/2021. Left: -Tricompartment joint narrowing greater than on right and greatest medial compartment. -Oval nodule mineralized cystic lesion lateral femoral condyle, stable. -Large suprapatellar effusion slightly decreased from 08/08/2021.
[2021-09-27 14:51] LABS: MANUAL DIFF FLAG NO
[2021-09-27 15:02] LABS: Basophils Percent Auto 0.5 % (0-2); Eosinophils Absolute Auto 0.2 X10*3/uL (0.0-0.4); Eosinophils Percent Auto 2.8 % (0-4); Hematocrit 32.4 % (37.0-47.0); Hemoglobin 10.4 g/dl (12.0-16.0); Imm Gran Abs Auto 0.02 X10*3/uL (0.00-0.03); Imm Gran Pct Auto 0.3 % (0.0-0.4); Lymphocytes Absolute Auto 1.2 X10*3/uL (1.2-4.9); Lymphocytes Percent Auto 19.7 % (20-40); Mean Corpuscular HGB Conc 32.1 g/dl (31.0-35.0); Mean Corpuscular Hemoglobin 26.9 pg (27.0-33.0); Mean Corpuscular Volume 83.7 fL (80.0-98.0); Mean Platelet Volume 9.2 fL (9.4-12.3); Monocytes Absolute Auto 0.4 X10*3/uL (0.1-1.2); Monocytes Percent Auto 6.5 % (2-11); Neutrophils Absolute Auto 4.3 x10*3/uL (2.0-8.3); Neutrophils Percent Auto 70.2 % (45-73); Platelet Count 353 X10*3/uL (160-400); Red Blood Count 3.87 X10*6/uL (4.20-5.50); White Blood Count 6.2 X10*3/uL (4.8-10.8)
[2021-09-27 15:21] LABS: Alanine Aminotransferase 10 U/L (0-31); Alkaline Phosphatase 108 U/L (39-117); Anion Gap 12 (12-20); Aspartate Amino Transferase 12 U/L (5-31); Bilirubin Total 0.2 mg/dL (0.0-1.0); Blood Urea Nitrogen 8 mg/dL (9-16); C Reactive Protein 3.65 mg/dL (< or = 0.50); Calcium 8.9 mg/dL (8.4-10.2); Carbon Dioxide 27 mmol/L (22-29); Chloride 108 mmol/L (96-108); Estimated Glomerular Filt Rate > 60; Glucose Random 128 mg/dL (60-115); Potassium 3.5 mmol/L (3.3-5.1); Sodium 143 mmol/L (135-145); Total Protein 7.4 g/dL (6.5-8.0)
[2021-09-27 16:00] LABS: Erythrocyte Sedimentation Rate 70 MM/HR (0-20)
== END 2021-09-27 14:31 | disposition home or self-care (01) ==
LOC: HO.LAB 14:30
PROVIDERS: PCP Internal Medicine; Visit Provider Nurse Practitioner Family
DX: M05.9 Rheumatoid arthritis with rheumatoid factor, unspecified (principal); M17.0 Bilateral primary osteoarthritis of knee
CPT/HCPCS: 36415; 73562; 80053; 85025; 85652; 86140

== ENCOUNTER 2021-10-02 15:53 | Emergency (ER) | payer OTHER, SELFPAY ==
[2021-10-02 16:00] VITALS: BP 174/76; PULSE 79; RESP 18; TEMP 37.2; O2SAT 97; BMI 26.6
[2021-10-02 16:13] LABS: MANUAL DIFF FLAG NO
[2021-10-02 16:16] LABS: Basophils Absolute Auto 0.1 X10*3/uL (0.0-0.2); Basophils Percent Auto 0.7 % (0-2); Eosinophils Absolute Auto 0.2 X10*3/uL (0.0-0.4); Eosinophils Percent Auto 3.3 % (0-4); Hematocrit 35.3 % (37.0-47.0); Hemoglobin 11.3 g/dl (12.0-16.0); Imm Gran Abs Auto 0.05 X10*3/uL (0.00-0.03); Imm Gran Pct Auto 0.7 % (0.0-0.4); Lymphocytes Absolute Auto 1.7 X10*3/uL (1.2-4.9); Lymphocytes Percent Auto 24.7 % (20-40); Mean Corpuscular Hemoglobin 26.8 pg (27.0-33.0); Mean Corpuscular Volume 83.8 fL (80.0-98.0); Mean Platelet Volume 8.8 fL (9.4-12.3); Monocytes Absolute Auto 0.4 X10*3/uL (0.1-1.2); Monocytes Percent Auto 5.5 % (2-11); Neutrophils Absolute Auto 4.5 x10*3/uL (2.0-8.3); Neutrophils Percent Auto 65.1 % (45-73); Platelet Count 428 X10*3/uL (160-400); Red Blood Count 4.21 X10*6/uL (4.20-5.50); Red Cell Distribution Width 13.8 % (11.0-16.0)
[2021-10-02 16:33] LABS: Alanine Aminotransferase 13 U/L (0-31); Albumin Level 4.4 g/dL (3.5-5.0); Alkaline Phosphatase 113 U/L (39-117); Anion Gap 14 (12-20); Aspartate Amino Transferase 18 U/L (5-31); Bilirubin Total 0.2 mg/dL (0.0-1.0); Blood Urea Nitrogen 9 mg/dL (9-16); Calcium 9.3 mg/dL (8.4-10.2); Carbon Dioxide 26 mmol/L (22-29); Chloride 105 mmol/L (96-108); Creatinine Clr Calc Pharmacy 67.5; Estimated Glomerular Filt Rate > 60; Glucose Random 116 mg/dL (60-115); Potassium 4.3 mmol/L (3.3-5.1); Sodium 141 mmol/L (135-145); Total Protein 8.1 g/dL (6.5-8.0)
== END 2021-10-02 19:54 | disposition left against medical advice (07) ==
LOC: HO.ED 19:50
PROVIDERS: Emergency Provider Emergency Medicine; PCP Internal Medicine
DX: M54.50 Low back pain, unspecified (principal); Z79.899 Other long term (current) drug therapy
CPT/HCPCS: 36415; 80053; 85025; 99281; 99283

== ENCOUNTER 2021-10-06 08:12 | Outpatient (REF) | payer OTHER, SELFPAY ==
--- NOTE | ~2021-10-06 | XR_ITS ---
EXAMINATION: XR KNEE AP STANDING CLINICAL INFORMATION: Pain. COMPARISON: Radiographs of the knees 09/27/2021. TECHNIQUE: AP bilateral standing view of the knees was obtained. FINDINGS: No acute fractures or malalignment. Redemonstration of moderate degenerative osteoarthritis with joint space narrowing, subcortical sclerosis and osteophytes, more notable along the medial compartment of the left knee. Stable subcortical lucency along the lateral femoral condyle to the left knee. No chondrocalcinosis. Limited evaluation of joint effusions and patellofemoral compartments in the absence of lateral views, referred to recent radiographs from 09/27/2021. XR/XR knee standing BI IMPRESSION: Moderate bilateral degenerative osteoarthritis, more pronounced on the left knee, specifically medial compartment.
== END 2021-10-06 08:13 | disposition home or self-care (01) ==
LOC: HO.HOSX 08:12
PROVIDERS: Visit Provider Physician Assistant
DX: M17.0 Bilateral primary osteoarthritis of knee (principal)
CPT/HCPCS: 73565; 99202

== ENCOUNTER 2021-10-29 19:19 | Emergency (ER) | payer OTHER, SELFPAY ==
[2021-10-29 21:10] VITALS: BP 149/82; PULSE 87; RESP 18; TEMP 36.4; O2SAT 97; BMI 25.0
--- NOTE | 2021-10-29 22:39 | ED.EXTPRO ---
HPI - Extremity Problem General Chief complaint: Extremity Injury, Lower Stated complaint: L Knee inj/Abd pain Time Seen by Provider: 10/29/21 22:17 Source: patient and old records reviewed Mode of arrival: ambulatory Limitations: no limitations History of Present Illness HPI Narrative: 66 yo female with hx of back pain, osteoporosis, RA, chronic pain, was in pain management clinic until June 2021 when she showed up with 30 pills short of oxycodone - she was offered other modalities but declined PT and does not receive injections given her RA - she stopped going to pain management clinic after they did not Rx opiates per the note. She is on tramadol via her PCP right now she comes in with c/o feeling ill on tramadol asking for a few pills of oxycodone to get her threw the next days til she can get a new PCP MD Complaint: joint pain Onset (ago): year(s) Pain Consistency: constant Location: left, right and knee Quality: aching and constant Radiation: none Relieving factors: other (oxycodone) Exacerbating factors: walking Associated symptoms: other (side effects of tramadol) Context: other (chronic pain) Related Data Previous Rx's Medication Instructions Recorded naloxone 4 mg/actuation nasal 4 mg intranasal Q2M PRN opioid 07/01/20 spray (Narcan) overdose #2 ea ferrous sulfate 325 mg (65 mg 325 mg PO DAILY #30 tabs 04/21/21 iron) tablet,delayed release lorazepam 1 mg tablet 1 mg PO Q8H PRN agitation #90 tabs 06/13/21 lisinopril 10 mg tablet 10 mg PO DAILY #30 tabs 07/08/21 alendronate 70 mg tablet 70 mg PO QWEEK #12 tabs 08/08/21 cyclobenzaprine 5 mg tablet 5 mg PO Q8H PRN pain (scale score 08/08/21 7-10) 5 days #14 tabs lidocaine 5 % topical patch 1 patch topical DAILY PRN pain #30 08/08/21 (Lidoderm) ea etanercept 50 mg/mL (1 mL) 50 mg subcut QWEEK #4 mL 08/10/21 subcutaneous pen injector (Enbrel SureClick) cane #1 ea 08/18/21 diclofenac sodium 1 % topical gel 2 g topical QID PRN pain #100 grams 08/18/21 (Arthritis Pain (diclofenac)) oxycodone 5 mg tablet 5 mg PO BID PRN pain #4 tabs 10/29/21 Allergies Allergy/AdvReac Type Severity Reaction Status Date / Time buprenorphine [Belbuca] Allergy Intermediate nausea Verified 10/03/21 14:21 Review of Systems Review of Systems: Constitutional : No Fever, No Chills ENT/Mouth : No Ear Pain, No Hoarseness, No sore throat Eyes: No Eye Pain, No Swelling, No Redness, No Foreign Body Cardiovascular : No Chest Pain, No SOB Respiratory : No Cough, No Dyspnea Gastrointestinal : pos Nausea, No Vomiting, No Diarrhea, No abdominal Pain Genitourinary : No Dysuria, No Hematuria Musculoskeletal : positive joint pain, No Myalgias, No Joint Swelling Skin : No Skin lacerations, No rash Neuro : No Weakness, No Numbness, No Loss of Consciousness, No Dizziness, No Headache Psych : No Anxiety/Panic, No Depression Heme/Lymph: no easy bruising, no Lymphadenopathy Endocrine : No Polyuria, No Polydipsia All other systems reviewed and are negative [facility] Past Medical History Attestation statement: The following information was validated with the patient. Medical History Back pain Opiate abuse, episodic Osteoarthritis of both knees Osteopenia determined by x-ray Primary osteoarthritis of knees, bilateral Seropositive rheumatoid arthritis Surgical History History of appendectomy History of cholecystectomy History of D&C History of tonsillectomy Family History Family History Father Acute CVA (cerebrovascular accident) Mother Hypertension Hypercholesterolemia Brother Liver transplant status Family history of thyroid problem Social History Social History Housing: House Alcohol intake: never Patient Tobacco Use Status: Former Tobacco user e-Cigarette/Vaping Use: Never Used Second Hand Smoke Exposure: No Advance Directives: No Advance Directives Information Provided: No service: No Current occupational status: employed Cognitive needs: No Hearing needs: No Vision needs: Yes Physical Exam Vital Signs: Vital Signs: Last Vital Signs Temp 97.6 F 10/29/21 21:10 Pulse 87 10/29/21 21:10 Resp 18 10/29/21 21:10 BP 149/82 H 10/29/21 21:10 Pulse Ox 97 10/29/21 21:10 O2 Del Method 10/29/21 21:10 BMI result Body Mass Index 25.0 Appearance: Alert. Oriented X3. No acute distress. Eyes: Pupils equal, round and reactive to light. ENT: Pharynx normal. Neck: Normal inspection. Neck supple. CVS: Normal heart rate and rhythm. Pulses normal. Respiratory: No respiratory distress. Breath sounds normal. Abdomen: Soft and nontender. Skin: Skin warm and dry. Normal skin color. Normal skin turgor. Extremities: No lower extremity edema. chronic knee pain and deformity Neuro: Oriented X 3. No motor deficit. No sensory deficit. MDM - Extremity (Nontraumatic) MDM Narrative Medical decision making narrative: 66 yo female RA, arthritis here with chronic pain and experience side effects of tramadol for 8 months here requesting a few pills of oxycodone until she gets a new PCP - review of notes she did well with pain management states she couldn't catch a bus back to the clinic to get her pill count right. Unsure but I do believe she has side effects of tramadol. I feel she warrants a second chance to have her pain treated since tramadol is not working she may start to use heroin if she continues at this rate - will refer to new doctor as she requests and instruted her to follow up with pain management. 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 No Action Narcan 4 mg/actuation spray,non-aerosol 4 mg intranasal Q2M PRN (Reason: opioid overdose) Qty: 2 0RF Rx Instructions: spray 1 dose into ONE nostril; alternate nostrils w each dose until help arrives ferrous sulfate 325 mg (65 mg iron) tablet,delayed release (DR/EC) 325 mg PO DAILY Qty: 30 5RF lorazepam 1 mg tablet 1 mg PO Q8H PRN (Reason: agitation) Qty: 90 5RF Enbrel SureClick 50 mg/mL (1 mL) pen injector 50 mg subcut QWEEK Qty: 4 3RF lidocaine [Lidoderm] 5 % adhesive patch,medicated 1 patch topical DAILY MDD remove after 12 hours PRN (Reason: pain) Qty: 30 0RF Rx Instructions: leave on most painful area for up to 12 hrs cyclobenzaprine 5 mg tablet 5 mg PO Q8H PRN (Reason: pain (scale score 7-10)) 5 Days Qty: 14 0RF lisinopril 10 mg tablet 10 mg PO DAILY Qty: 30 0RF diclofenac sodium [Arthritis Pain (diclofenac)] 1 % gel 2 g topical QID PRN (Reason: pain) Qty: 100 0RF Rx Instructions: apply to single elbow, wrist or hand; for hand includes palm/fingers/back of hand (DME) cane Device See Rx Instructions .Route Qty: 1 0RF Rx Instructions: As directed alendronate 70 mg tablet 70 mg PO QWEEK Qty: 12 0RF
[2021-10-29] MEDS: oxyCODONE HCl Immed Release 5 MG TABLET PO (23:07)
== END 2021-10-29 23:09 | disposition home or self-care (01) ==
PROVIDERS: Emergency Provider Emergency Medicine; PCP Internal Medicine
DX: M17.0 Bilateral primary osteoarthritis of knee (principal); Z87.891 Personal history of nicotine dependence; Z79.899 Other long term (current) drug therapy
CPT/HCPCS: 99283

== ENCOUNTER → 2021-11-02 08:40 | Outpatient (BNVA) | payer OTHER, SELFPAY | PROVIDERS: PCP Internal Medicine; Visit Provider Nurse Practitioner Family | DX: M05.9 Rheumatoid arthritis with rheumatoid factor, unspecified (principal); M17.0 Bilateral primary osteoarthritis of knee; M85.80 Other specified disorders of bone density and structure, unspecified site | CPT/HCPCS: 99212 ==

== ENCOUNTER 2021-11-02 09:52 | Outpatient (REF) | payer OTHER, SELFPAY ==
[2021-11-02 11:11] LABS: C Reactive Protein 9.71 mg/dL (< or = 0.50)
[2021-11-02 11:31] LABS: Erythrocyte Sedimentation Rate 88 MM/HR (0-20)
== END 2021-11-02 09:53 | disposition home or self-care (01) ==
LOC: HO.10HDL 09:52
PROVIDERS: Visit Provider Nurse Practitioner Family
DX: M05.9 Rheumatoid arthritis with rheumatoid factor, unspecified (principal)
CPT/HCPCS: 36415; 85652; 86140; 99212

== ENCOUNTER 2021-11-08 14:02 | Outpatient (REF) | payer OTHER, SELFPAY ==
[2021-11-08 14:26] LABS: MANUAL DIFF FLAG NO
[2021-11-08 14:32] LABS: Basophils Percent Auto 0.8 % (0-2); Eosinophils Absolute Auto 0.1 X10*3/uL (0.0-0.4); Eosinophils Percent Auto 1.6 % (0-4); Hematocrit 32.4 % (37.0-47.0); Hemoglobin 10.4 g/dl (12.0-16.0); Imm Gran Abs Auto 0.02 X10*3/uL (0.00-0.03); Imm Gran Pct Auto 0.4 % (0.0-0.4); Lymphocytes Absolute Auto 1.2 X10*3/uL (1.2-4.9); Lymphocytes Percent Auto 24.3 % (20-40); Mean Corpuscular HGB Conc 32.1 g/dl (31.0-35.0); Mean Corpuscular Hemoglobin 26.5 pg (27.0-33.0); Mean Corpuscular Volume 82.4 fL (80.0-98.0); Monocytes Absolute Auto 0.5 X10*3/uL (0.1-1.2); Neutrophils Absolute Auto 3.2 x10*3/uL (2.0-8.3); Neutrophils Percent Auto 62.9 % (45-73); Platelet Count 413 X10*3/uL (160-400); Red Blood Count 3.93 X10*6/uL (4.20-5.50); Red Cell Distribution Width 13.9 % (11.0-16.0)
[2021-11-08 15:00] LABS: Alanine Aminotransferase 13 U/L (0-31); Aspartate Amino Transferase 15 U/L (5-31); C Reactive Protein 6.84 mg/dL (< or = 0.50); Estimated Glomerular Filt Rate > 60
[2021-11-08 15:13] LABS: Erythrocyte Sedimentation Rate 89 MM/HR (0-20)
[2021-11-08 15:27] LABS: Appearance Urine Clear; Color Urine Yellow; Glucose Urine UA Negative (Negative); Leukocyte Esterase Urine Negative (Negative); Nitrite Urine Negative (Negative); PH 5.5 (5.0-9.0); Urine Blood Negative (Negative); Urine Ketones Negative (Negative); Urine Protein Trace mg/dL (Neg-Trace)
== END 2021-11-08 14:03 | disposition home or self-care (01) ==
LOC: HO.LAB 14:02
PROVIDERS: PCP Internal Medicine; Visit Provider Nurse Practitioner Family
DX: M05.9 Rheumatoid arthritis with rheumatoid factor, unspecified (principal); R79.82 Elevated C-reactive protein (CRP); Z79.899 Other long term (current) drug therapy
CPT/HCPCS: 36415; 81003; 82565; 84450; 84460; 85025; 85652; 86140

== ENCOUNTER 2021-11-11 18:46 | Emergency (ER) | payer OTHER, SELFPAY ==
[2021-11-11 19:25] VITALS: BP 150/70; PULSE 69; RESP 20; TEMP 36.4; O2SAT 98; BMI 24.5
[2021-11-11 20:16] LABS: MANUAL DIFF FLAG NO
[2021-11-11 20:17] LABS: Basophils Absolute Auto 0.1 X10*3/uL (0.0-0.2); Basophils Percent Auto 0.9 % (0-2); Eosinophils Absolute Auto 0.1 X10*3/uL (0.0-0.4); Eosinophils Percent Auto 1.2 % (0-4); Hematocrit 35.1 % (37.0-47.0); Hemoglobin 10.8 g/dl (12.0-16.0); Imm Gran Abs Auto 0.02 X10*3/uL (0.00-0.03); Imm Gran Pct Auto 0.3 % (0.0-0.4); Lymphocytes Absolute Auto 1.6 X10*3/uL (1.2-4.9); Lymphocytes Percent Auto 27.8 % (20-40); Mean Corpuscular HGB Conc 30.8 g/dl (31.0-35.0); Mean Corpuscular Hemoglobin 26.2 pg (27.0-33.0); Monocytes Absolute Auto 0.4 X10*3/uL (0.1-1.2); Monocytes Percent Auto 7.1 % (2-11); Neutrophils Absolute Auto 3.6 x10*3/uL (2.0-8.3); Neutrophils Percent Auto 62.7 % (45-73); Platelet Count 395 X10*3/uL (160-400); Red Blood Count 4.13 X10*6/uL (4.20-5.50); Red Cell Distribution Width 13.9 % (11.0-16.0); White Blood Count 5.8 X10*3/uL (4.8-10.8)
[2021-11-11 20:34] LABS: Alanine Aminotransferase 9 U/L (0-31); Alkaline Phosphatase 132 U/L (39-117); Anion Gap 16 (12-20); Aspartate Amino Transferase 17 U/L (5-31); Bilirubin Total 0.2 mg/dL (0.0-1.0); Blood Urea Nitrogen 16 mg/dL (9-16); Calcium 9.1 mg/dL (8.4-10.2); Carbon Dioxide 26 mmol/L (22-29); Chloride 108 mmol/L (96-108); Creatinine Clr Calc Pharmacy 64.7; Estimated Glomerular Filt Rate > 60; Glucose Random 100 mg/dL (60-115); Sodium 146 mmol/L (135-145); Total Protein 7.7 g/dL (6.5-8.0)
[2021-11-11 21:41] VITALS: BP 117/69; PULSE 65; RESP 18; TEMP 36.6; O2SAT 97
--- NOTE | 2021-11-11 22:43 | ED_ITS ---
HPI - Extremity Problem General Chief complaint: Extremity Problem Stated complaint: benny. leg pain Time Seen by Provider: 11/11/21 22:20 Source: patient Mode of arrival: ambulatory Limitations: no limitations History of Present Illness HPI Narrative: 66-year-old female who presents emergency department for evaluation bilateral lower extremity pain. The patient states she has had chronic pain in her lower extremities times months to years. She states that she has a history rheumatoid arthritis and osteoarthritis. She states she has very little calcium in her bones as well. 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 she states that this did improve the pain in her hands but did not change the pain in her lower legs. She states that she has constant pain and the joints of her lower legs, the pain is worse with movement and is moderate to severe in intensity. The patient states that she has been seen by the pain management clinic and by her primary care doctor. She states that she was on oxycodone 20 mg 4 times a day and this was helping her pain however she states that because of issues with the amount of medication she was using her doctor stopped prescribing oxycodone and switched her to tramadol. She states that tramadol gives her headaches and she has difficulty taking this medication. She states that she has been on gabapentin in the past well but she cannot remember if this is helped her pain. She denied fever, chills, rhinorrhea, sore throat, cough, chest pain, shortness of breath. She denies increased swelling in the joints of her lower extremities. Related Data Previous Rx's Medication Instructions Recorded naloxone 4 mg/actuation nasal 4 mg intranasal Q2M PRN opioid 07/01/20 spray (Narcan) overdose #2 ea ferrous sulfate 325 mg (65 mg 325 mg PO DAILY #30 tabs 04/21/21 iron) tablet,delayed release lorazepam 1 mg tablet 1 mg PO Q8H PRN agitation #90 tabs 06/13/21 cyclobenzaprine 5 mg tablet 5 mg PO Q8H PRN pain (scale score 08/08/21 7-10) 5 days #14 tabs lidocaine 5 % topical patch 1 patch topical DAILY PRN pain #30 08/08/21 (Lidoderm) ea cane #1 ea 08/18/21 diclofenac sodium 1 % topical gel 2 g topical QID PRN pain #100 grams 08/18/21 (Arthritis Pain (diclofenac)) alendronate 70 mg tablet 70 mg PO QWEEK #12 tabs 11/01/21 adalimumab 40 mg/0.4 mL See Rx Instructions subcut 11/09/21 subcutaneous pen kit (Humira(CF) .COMPLEX #2 ea Pen) prednisone 5 mg tablet 5 mg PO BID #60 tabs 11/09/21 gabapentin 300 mg capsule 300 mg PO BID #60 caps 11/11/21 oxycodone 5 mg tablet 5 mg PO Q4H PRN pain #10 tabs 11/11/21 Allergies Allergy/AdvReac Type Severity Reaction Status Date / Time buprenorphine [Belbuca] Allergy Intermediate nausea Verified 11/11/21 19:29 Review of Systems Review of Systems: Yes all other systems are reviewed and are negative [facility] Past Medical History [facility] Narrative: Past medical history: Reviewed below. The patient states she had a COVID-19 infection in July 2021. She states she had cervical cancer in 2017 which was treated with surgery, chemotherapy and radiation therapy.Social history: The patient is a former smoker and she stop smoking in 2016. She states she smoked for greater than 30 years. She denies alcohol use. She denies drug use. Medical History Back pain Opiate abuse, episodic Osteoarthritis of both knees Osteopenia determined by x-ray Primary osteoarthritis of knees, bilateral Seropositive rheumatoid arthritis Surgical History History of appendectomy History of cholecystectomy History of D&C History of tonsillectomy Family History Family History Father Acute CVA (cerebrovascular accident) Mother Hypertension Hypercholesterolemia Brother Liver transplant status Family history of thyroid problem Social History Social History Housing: House Alcohol intake: never Patient Tobacco Use Status: Former Tobacco user e-Cigarette/Vaping Use: Never Used Second Hand Smoke Exposure: No Advance Directives: No Advance Directives Information Provided: No service: No Current occupational status: employed Cognitive needs: No Hearing needs: No Vision needs: Yes Physical Exam Vital Signs: Vital Signs: Last Vital Signs Temp 98 F 11/11/21 21:41 Pulse 65 11/11/21 21:41 Resp 18 11/11/21 21:41 BP 117/69 11/11/21 21:41 Pulse Ox 97 11/11/21 21:41 O2 Del Method 11/11/21 21:41 BMI result Body Mass Index 24.5 Const: General: cooperative and no acute distress Orientation/consciousness: oriented to person and oriented to place Limitations: no limitations HEENT: Head: Yes normal to inspection, Yes normocephalic and Yes atraumatic Ears: external ears normal General nose exam: Normal external nose present Face and sinus: Yes normal facial exam Mouth: Normal oral and palatal mucosa present Throat: Yes posterior oropharynx normal Eyes: General: appearance normal, both eyes and all related structures Pupils: Equal, round and reactive pupils present Neck: Neck: Yes normal visual inspection, Yes no lymphadenopathy, Yes trachea midline and Yes supple Chest: Chest palpation & inspection: normal inspection of the chest and normal palpation of entire chest wall Resp: Effort & Inspection: normal respiratory effort and able to speak in complete sentences Auscultation: clear to auscultation bilaterally Cardio: Rate: regular rate Rhythm: regular rhythm Heart sounds: S1 normal heart sound present, S2 normal heart sound present and no murmurs GI: Inspection: Yes normal to inspection Palpation (GI): Soft to palpation, nontender and no guarding Auscultation: normal bowel sounds : General: Yes no CVA tenderness Back/Spine/Pelvis: Back: no CVA tenderness Skin: General skin exam: no rashes or lesions noted Neuro: General: oriented to person and oriented to place Cranial nerves: Yes CN's II-XII intact bilaterally and Yes Equal, round and reactive pupils present Cognition (Neuro): normal cognition Motor exam (neuro): 5/5 motor strength present throughout Extrem: Other: The patient's joints her upper extremities appear to be normal with no increased warmth or swelling. The patient does have large appearing knees consistent with osteoarthritis, there is no increased warmth over her knee joints ankles or feet joints. The patient has full range of motion of her knees without any limitations or pain. Psych: Appearance: grossly normal Speech and movement: Normal speech and movement present Affect: normal affect Attitude: cooperative Thought process: Normal thought process present Thought content: Normal thought content present Course Course Course Narrative: 66-year-old female who presents emergency department for evaluation of chronic pain of her lower extremities times years with increased pain over the past several months. Patient states approximately 8 hours prior her oxycodone was discontinued she was placed on tramadol and this is not relieving her pain. She states she has been on gabapentin in the past but she is not sure if this is relieved her pain. She also states she has been in pain management in the past. The patient's exam is consistent with osteoarthritis of her knees bilaterally. Vital signs did reveal an elevated blood pressure of 150/70 otherwise were unremarkable. The patient had a laboratory evaluation which included a CBC and CMP. The patient had mild anemia with an H&H of 10 and 35 an elevated alk-phos of 132. I did discuss chronic pain management with the patient. The patient was started on gabapentin 300 mg twice a day and I did give her a 1 month supply. Also give a limited number of oxycodone 5 mg tablets to help with her acute pain. I did tell the patient that she should talk to her primary care doctor about getting back into the pain management clinic. MDM - Extremity (Nontraumatic) Lab Data Result diagrams: 11/11/21 20:12 11/11/21 20:12 Labs: Lab Results 11/11/21 11/11/21 Range/Units 20:12 20:12 WBC 5.8 (4.8-10.8) X10*3/uL RBC 4.13 L (4.20-5.50) X10*6/uL Hgb 10.8 L (12.0-16.0) g/dl Hct 35.1 L (37.0-47.0) % MCV 85.0 (80.0-98.0) fL MCH 26.2 L (27.0-33.0) pg MCHC 30.8 L (31.0-35.0) g/dl RDW 13.9 (11.0-16.0) % Plt Count 395 (160-400) X10*3/uL MPV 9.0 L (9.4-12.3) fL Immature Gran % (Auto) 0.3 (0.0-0.4) % Neut % (Auto) 62.7 (45-73) % Lymph % (Auto) 27.8 (20-40) % Haines % (Auto) 7.1 (2-11) % Eos % (Auto) 1.2 (0-4) % Baso % (Auto) 0.9 (0-2) % Lymph # (Auto) 1.6 (1.2-4.9) X10*3/uL Haines # (Auto) 0.4 (0.1-1.2) X10*3/uL Eos # (Auto) 0.1 (0.0-0.4) X10*3/uL Baso # (Auto) 0.1 (0.0-0.2) X10*3/uL Abs Immat Gran (auto) 0.02 (0.00-0.03) X10*3/uL Absolute Neuts (auto) 3.6 (2.0-8.3) x10*3/uL Absolute Nucleated RBC 0.000 (0.0-0.012) X10*3/uL Nucleated RBC % (auto) 0.0 (0.0-0.2) /100WBC Sodium 146 H (135-145) mmol/L Potassium 4.0 (3.3-5.1) mmol/L Chloride 108 (96-108) mmol/L Carbon Dioxide 26 (22-29) mmol/L Anion Gap 16 (12-20) BUN 16 D (9-16) mg/dL Creatinine 0.79 (0.5-1.4) mg/dL Estim Creat Clear Calc 64.7 Estimated GFR > 60 Random Glucose 100 (60-115) mg/dL Calcium 9.1 (8.4-10.2) mg/dL Total Bilirubin 0.2 (0.0-1.0) mg/dL AST 17 (5-31) U/L ALT 9 (0-31) U/L Alkaline Phosphatase 132 H (39-117) U/L Total Protein 7.7 (6.5-8.0) g/dL Albumin 4.0 (3.5-5.0) g/dL Discharge Plan Discharge Clinical Impression: Chronic pain syndrome Osteoarthritis of both knees Qualifiers: Osteoarthritis type: primary Qualified Code(s): M17.0 - Bilateral primary osteoarthritis of knee Patient Disposition: Home, Self-Care Instructions: Osteoarthritis (ED) Additional Instructions: Take gabapentin 300 mg pills, 1 pill twice a day. I did give you a 1 month supply. If this medication helps her pain then you should talk to your doctor about getting a refill, you may also need to be on a higher dose. I am giving you a very limited number of oxycodone to help you with your pain over the next several days. While you taking this medication stop taking tramadol. You should discuss with your primary care provider getting into a pain management clinic to further help with your chronic pain. Follow-up with your doctor in 2 days. Please return to the emergency department if your symptoms get worse or if you develop any symptoms that are concerning to you. Prescriptions: New oxycodone 5 mg tablet 5 mg PO Q4H PRN (Reason: pain) Qty: 10 0RF Rx Instructions: Patient may request partial fill; Partial Fill upon patient request. gabapentin 300 mg capsule 300 mg PO BID Qty: 60 0RF No Action Narcan 4 mg/actuation spray,non-aerosol 4 mg intranasal Q2M PRN (Reason: opioid overdose) Qty: 2 0RF Rx Instructions: spray 1 dose into ONE nostril; alternate nostrils w each dose until help arrives ferrous sulfate 325 mg (65 mg iron) tablet,delayed release (DR/EC) 325 mg PO DAILY Qty: 30 5RF lorazepam 1 mg tablet 1 mg PO Q8H PRN (Reason: agitation) Qty: 90 5RF alendronate 70 mg tablet 70 mg PO QWEEK Qty: 12 0RF lidocaine [Lidoderm] 5 % adhesive patch,medicated 1 patch topical DAILY MDD remove after 12 hours PRN (Reason: pain) Qty: 30 0RF Rx Instructions: leave on most painful area for up to 12 hrs cyclobenzaprine 5 mg tablet 5 mg PO Q8H PRN (Reason: pain (scale score 7-10)) 5 Days Qty: 14 0RF diclofenac sodium [Arthritis Pain (diclofenac)] 1 % gel 2 g topical QID PRN (Reason: pain) Qty: 100 0RF Rx Instructions: apply to single elbow, wrist or hand; for hand includes palm/fingers/back of hand (DME) cane Device See Rx Instructions .Route Qty: 1 0RF Rx Instructions: As directed prednisone 5 mg tablet 5 mg PO BID Qty: 60 0RF Humira(CF) Pen 40 mg/0.4 mL pen injector kit See Rx Instructions subcut .COMPLEX Qty: 2 1RF Rx Instructions: inject one - 40 mg/0.4 mL pen every 2 weeks subcut
== END 2021-11-11 23:47 | disposition home or self-care (01) ==
PROVIDERS: Emergency Provider Emergency Medicine Emergency Medical Services
DX: G89.4 Chronic pain syndrome (principal); M17.0 Bilateral primary osteoarthritis of knee; M79.662 Pain in left lower leg; M79.661 Pain in right lower leg; F11.20 Opioid dependence, uncomplicated; Z79.899 Other long term (current) drug therapy
CPT/HCPCS: 36415; 80053; 85025; 99283

== ENCOUNTER 2021-11-17 19:38 | Emergency (ER) | payer OTHER, SELFPAY ==
[2021-11-17 19:41] VITALS: BP 157/70; PULSE 70; RESP 18; TEMP 37.2; O2SAT 97; BMI 25.0
--- NOTE | 2021-11-17 21:44 | ED_ITS ---
HPI - General Adult General Chief complaint: General Medical Stated complaint: knee pain Time Seen by Provider: 11/17/21 21:22 Source: patient Mode of arrival: ambulatory Limitations: no limitations History of Present Illness HPI narrative: Patient comes to the emergency room complaining of chronic bilateral knee pain. Patient states that she has been on oxycodone for a long time, years. Then patient was switched to tramadol 4 times a day for chronic knee pain secondary to rheumatoid arthritis. Patient states that the tramadol gives her very bad headache. Patient has no issues with oxycodone. Patient states that she has been asked to be seen by the pain clinic, however, she is not sure if she would benefit from it because they do not prescribe oxycodone. Patient states that she is undergoing several treatments for osteoarthritis, including Humira. Patient states that she has been told in the past she is not a candidate for surgery for her knees due to severe osteopenia. Patient requesting a pr escription of oxycodone until he she get in touch with her primary care physician. Related Data Previous Rx's Medication Instructions Recorded naloxone 4 mg/actuation nasal 4 mg intranasal Q2M PRN opioid 07/01/20 spray (Narcan) overdose #2 ea ferrous sulfate 325 mg (65 mg 325 mg PO DAILY #30 tabs 04/21/21 iron) tablet,delayed release lorazepam 1 mg tablet 1 mg PO Q8H PRN agitation #90 tabs 06/13/21 cyclobenzaprine 5 mg tablet 5 mg PO Q8H PRN pain (scale score 08/08/21 7-10) 5 days #14 tabs lidocaine 5 % topical patch 1 patch topical DAILY PRN pain #30 08/08/21 (Lidoderm) ea cane #1 ea 08/18/21 diclofenac sodium 1 % topical gel 2 g topical QID PRN pain #100 grams 08/18/21 (Arthritis Pain (diclofenac)) alendronate 70 mg tablet 70 mg PO QWEEK #12 tabs 11/01/21 adalimumab 40 mg/0.4 mL See Rx Instructions subcut 11/09/21 subcutaneous pen kit (Humira(CF) .COMPLEX #2 ea Pen) prednisone 5 mg tablet 5 mg PO BID #60 tabs 11/09/21 gabapentin 300 mg capsule 300 mg PO BID #60 caps 11/11/21 oxycodone 5 mg tablet 5 mg PO Q4H PRN pain #10 tabs 11/11/21 oxycodone 5 mg tablet 5 mg PO BID PRN pain #10 tabs 11/17/21 Allergies Allergy/AdvReac Type Severity Reaction Status Date / Time buprenorphine [Belbuca] Allergy Intermediate nausea Verified 11/11/21 19:29 Review of Systems Review of Systems: Constitutional : No Weight loss, No Fever, No Chills, No Night Sweats, No Fatigue, No Malaise ENT/Mouth : No Hearing loss, No Ear Pain, No Nasal Congestion, No Sinus Pain, No Hoarseness, No sore throat, No Rhinorrhea, No Swallowing Difficulty Eyes: No Eye Pain, No Swelling, No Redness, No Foreign Body, No Discharge, No Vision Changes Cardiovascular : No Chest Pain, No SOB, No Dyspnea on Exertion, No Orthopnea, No Edema, No Palpitations Respiratory : No Cough, No Sputum, No Wheezing, No Smoke Exposure, No Dyspnea Gastrointestinal : No Nausea, No Vomiting, No Diarrhea, No Constipation, No abdominal Pain, No Hematochezia, No Melena Genitourinary : no irregular bleeding, No Dysuria, No Urinary Frequency, No Hematuria, No Urinary Incontinence, No Urgency, No Flank Pain, No Urinary Flow Changes, No Hesitancy Musculoskeletal : Complaining of chronic bilateral knee pain, No Myalgias, No Joint Swelling Skin : No Skin Lesions, No rash Neuro : No Weakness, No Numbness, No Paresthesias, No Loss of Consciousness, No Dizziness, No Headache Psych : No Anxiety/Panic, No Depression, No SI/HI/AH/VH, No Social Issues, Heme/Lymph: No Bruising, No Bleeding,No Lymphadenopathy Endocrine : No Polyuria, No Polydipsia, No Temperature Intolerance [facility] Past Medical History Medical History Back pain Opiate abuse, episodic Osteoarthritis of both knees Osteopenia determined by x-ray Primary osteoarthritis of knees, bilateral Seropositive rheumatoid arthritis Surgical History History of appendectomy History of cholecystectomy History of D&C History of tonsillectomy Family History Family History Father Acute CVA (cerebrovascular accident) Mother Hypertension Hypercholesterolemia Brother Liver transplant status Family history of thyroid problem Social History Social History Housing: House Alcohol intake: never Patient Tobacco Use Status: Former Tobacco user e-Cigarette/Vaping Use: Never Used Second Hand Smoke Exposure: No Advance Directives: No Advance Directives Information Provided: No service: No Current occupational status: employed Cognitive needs: No Hearing needs: No Vision needs: Yes Physical Exam ED Vital Signs: Vital Signs - 24 hr 11/17/21 19:41 Temperature 98.9 F Pulse Rate 70 Respiratory Rate 18 Blood Pressure 157/70 H Pulse Oximetry 97 Oxygen Delivery Method Room Air BMI result Body Mass Index 25.0 Const Other: Appearance: Alert. Oriented X3. No acute distress. Eyes: Pupils equal, round and reactive to light. ENT: Pharynx normal. Neck: Normal inspection. Neck supple. No lymph nodes noted. No crepitus CVS: Normal heart rate and rhythm. Pulses normal. Normal S1 and S2 Respiratory: No respiratory distress. Breath sounds normal. No Wheezing. No rales Abdomen: Soft and nontender. No rigidity. No distention. Skin: Skin warm and dry. Normal skin color. Normal skin turgor. Extremities: No lower extremity edema. Patient's niece/joints appear normal, no increased warmth or swelling. Patient's joint structures consistent with osteoarthritis, patient is able to flex and extend both knees, septic joint not suspected Neuro: Oriented X 3. No motor deficit. No sensory deficit. Moving all extremities. No slurred speech. CN 2 through 12 grossly intact Psych: calm, cooperative, normal affect Course Course Course Narrative: Patient was given 1 dose of p.o. oxycodone, patient was given a prescription of 10 tablets to give her a chance to establish a good care of plan with her primary care physician. Discharge Plan Discharge Clinical Impression: Osteoarthritis of both knees Patient Disposition: Home, Self-Care Instructions: Osteoarthritis (ED) Additional Instructions: Please follow-up with your primary care physician tomorrow. If you have any worsening or new symptoms, please return to the emergency room or call 911 Prescriptions: New oxycodone 5 mg tablet 5 mg PO BID PRN (Reason: pain) Qty: 10 0RF Rx Instructions: Partial Fill upon patient request. No Action Narcan 4 mg/actuation spray,non-aerosol 4 mg intranasal Q2M PRN (Reason: opioid overdose) Qty: 2 0RF Rx Instructions: spray 1 dose into ONE nostril; alternate nostrils w each dose until help arrives ferrous sulfate 325 mg (65 mg iron) tablet,delayed release (DR/EC) 325 mg PO DAILY Qty: 30 5RF lorazepam 1 mg tablet 1 mg PO Q8H PRN (Reason: agitation) Qty: 90 5RF alendronate 70 mg tablet 70 mg PO QWEEK Qty: 12 0RF lidocaine [Lidoderm] 5 % adhesive patch,medicated 1 patch topical DAILY MDD remove after 12 hours PRN (Reason: pain) Qty: 30 0RF Rx Instructions: leave on most painful area for up to 12 hrs cyclobenzaprine 5 mg tablet 5 mg PO Q8H PRN (Reason: pain (scale score 7-10)) 5 Days Qty: 14 0RF oxycodone 5 mg tablet 5 mg PO Q4H PRN (Reason: pain) Qty: 10 0RF Rx Instructions: Patient may request partial fill; Partial Fill upon patient request. gabapentin 300 mg capsule 300 mg PO BID Qty: 60 0RF diclofenac sodium [Arthritis Pain (diclofenac)] 1 % gel 2 g topical QID PRN (Reason: pain) Qty: 100 0RF Rx Instructions: apply to single elbow, wrist or hand; for hand includes palm/fingers/back of hand (DME) cane Device See Rx Instructions .Route Qty: 1 0RF Rx Instructions: As directed prednisone 5 mg tablet 5 mg PO BID Qty: 60 0RF Humira(CF) Pen 40 mg/0.4 mL pen injector kit See Rx Instructions subcut .COMPLEX Qty: 2 1RF Rx Instructions: inject one - 40 mg/0.4 mL pen every 2 weeks subcut
[2021-11-17] MEDS: oxyCODONE HCl Immed Release 5 MG TABLET PO (22:10)
== END 2021-11-17 22:26 | disposition home or self-care (01) ==
PROVIDERS: Emergency Provider Emergency Medicine
DX: M17.0 Bilateral primary osteoarthritis of knee (principal); Z79.899 Other long term (current) drug therapy
CPT/HCPCS: 99283

== ENCOUNTER 2021-11-24 20:38 | Emergency (ER) | payer OTHER, SELFPAY ==
[2021-11-24 22:05] VITALS: BP 130/85; PULSE 70; RESP 18; TEMP 36.6; O2SAT 98; BMI 25.0
--- NOTE | 2021-11-25 00:39 | ED.EXTPRO ---
HPI - Extremity Problem General Chief complaint: Extremity Problem Stated complaint: knee pain Time Seen by Provider: 11/25/21 00:39 Source: patient Mode of arrival: ambulatory Limitations: no limitations History of Present Illness HPI Narrative: This is a 66-year-old female past medical history significant for back pain, episodic opiate abuse, osteoarthritis of both knees, osteopenia, and seropositive rheumatoid arthritis presenting to the emergency department with acute on chronic bilateral knee pain tells me pain has been going on for four years. Patient tells me that she cannot get in to see her primary care provider until mid December. She reports pain worse with ambulation better at rest. She tells me it feels like her typical knee pain however worsening as she ran out of oxycodone. She tells me she cannot take the pain any longer. Denies numbness, tingling, recent trauma, fevers, chills, chest pain, shortness of breath, nausea, vomiting. No tick exposure. To note patient is currently followed by Orthopedics, Rheumatology and PCP for this. Patient on tramadol. Related Data Previous Rx's Medication Instructions Recorded naloxone 4 mg/actuation nasal 4 mg intranasal Q2M PRN opioid 07/01/20 spray (Narcan) overdose #2 ea ferrous sulfate 325 mg (65 mg 325 mg PO DAILY #30 tabs 04/21/21 iron) tablet,delayed release lorazepam 1 mg tablet 1 mg PO Q8H PRN agitation #90 tabs 06/13/21 cyclobenzaprine 5 mg tablet 5 mg PO Q8H PRN pain (scale score 08/08/21 7-10) 5 days #14 tabs lidocaine 5 % topical patch 1 patch topical DAILY PRN pain #30 08/08/21 (Lidoderm) ea cane #1 ea 08/18/21 diclofenac sodium 1 % topical gel 2 g topical QID PRN pain #100 grams 08/18/21 (Arthritis Pain (diclofenac)) alendronate 70 mg tablet 70 mg PO QWEEK #12 tabs 11/01/21 adalimumab 40 mg/0.4 mL See Rx Instructions subcut 11/09/21 subcutaneous pen kit (Humira(CF) .COMPLEX #2 ea Pen) prednisone 5 mg tablet 5 mg PO BID #60 tabs 11/09/21 gabapentin 300 mg capsule 300 mg PO BID #60 caps 11/11/21 oxycodone 5 mg tablet 5 mg PO Q4H PRN pain #10 tabs 11/11/21 oxycodone 5 mg tablet 5 mg PO BID PRN pain #10 tabs 11/17/21 Allergies Allergy/AdvReac Type Severity Reaction Status Date / Time buprenorphine [Belbuca] Allergy Intermediate nausea Verified 11/24/21 22:08 Review of Systems Review of Systems: Constitutional : No Weight loss, No Fever, No Chills, No Fatigue, No Malaise ENT/Mouth : No sore throat, No Rhinorrhea Eyes: No Eye Pain, No Swelling, No Redness Cardiovascular : No Chest Pain, No SOB, No Dyspnea on Exertion, No Orthopnea, No Edema, No Palpitations Respiratory : No Cough, No Sputum, No Wheezing Gastrointestinal : No Nausea, No Vomiting, No Diarrhea, No Constipation, No abdominal Pain, No Hematochezia, No Melena Genitourinary : No Dysuria, No Urinary Frequency, No Hematuria, Musculoskeletal : + joint pain, No Myalgias, No Joint Swelling Skin : No Skin Lesions, No rash Neuro : No Weakness, No Numbness, No Dizziness, No Headache Psych : No Anxiety/Panic, No Depression All other systems reviewed and are negative Yes all other systems are reviewed and are negative [facility] Past Medical History Attestation statement: The following information was validated with the patient. Source: old records reviewed and nursing notes reviewed Medical History Back pain Opiate abuse, episodic Osteoarthritis of both knees Osteopenia determined by x-ray Primary osteoarthritis of knees, bilateral Seropositive rheumatoid arthritis Surgical History History of appendectomy History of cholecystectomy History of D&C History of tonsillectomy Family History Family History Father Acute CVA (cerebrovascular accident) Mother Hypertension Hypercholesterolemia Brother Liver transplant status Family history of thyroid problem Social History Social History Housing: House Alcohol intake: never Patient Tobacco Use Status: Former Tobacco user e-Cigarette/Vaping Use: Never Used Second Hand Smoke Exposure: No Advance Directives: No Advance Directives Information Provided: No service: No Current occupational status: employed Cognitive needs: No Hearing needs: No Vision needs: Yes Physical Exam Vital Signs: Vital Signs: Last Vital Signs Temp 98 F 11/24/21 22:05 Pulse 70 11/24/21 22:05 Resp 18 11/24/21 22:05 BP 130/85 11/24/21 22:05 Pulse Ox 98 11/24/21 22:05 O2 Del Method 11/24/21 22:05 BMI result Body Mass Index 25.0 Vital signs stable Appearance: Alert.? Oriented X3.? No acute distress.? Head: Normocephalic, atraumatic, no step-offs or deformities Eyes: Pupils equal, round and reactive to light.? ENT: Pharynx normal.? Neck: Normal inspection.? Neck supple.? CVS: Normal heart rate and rhythm.? Pulses normal.? Respiratory: No respiratory distress.? Breath sounds normal.? Abdomen: Soft and nontender.? Skin: Skin warm and dry.? Normal skin color.? Normal skin turgor.? Extremities: No lower extremity edema.? No calf ttp. 5/5 strength to bilateral upper and lower extremities. Bilateral knees with mild effusions bilaterally which appear to be chronic based off patient's notes. Full range of motion to bilateral knees, no overlying erythema or warmth. Popliteal pulses 2+ equal bilateral. Patient ambulating with steady gait normal coordination. No laxity noted to extremity. No signs of acute ligament or tendon tear. Negative anterior, posterior drawer, valgus, varus and apley. Back: No midline tenderness, no C-spine tenderness, full range of motion, no CVA tenderness bilaterally Neuro: Oriented X 3.? No motor deficit.? No sensory deficit. CN 2-12 intact Course Reevaluation(s) Reevaluation #1: Patient will be given Toradol. Advised return with new or worsening symptoms, educated on worrisome signs and symptoms and when to return. At this time I feel comfortable discharge home. 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 Time: 00:49 Reevaluation #2: Patient states she needs more support and she is having trouble at home. She tells me she is considering going to a skilled nursing. At this time case management and PT evaluation has been put in. Time: 00:57 MDM - Extremity (Nontraumatic) MDM Narrative Medical decision making narrative: [age] year old female presenting with bilateral knee pain which appears to be chronic in nature patient has a PCP but cant get in until December. Denies trauma, numbness, tingling. Upon chart review it is noted that patient is followed by Dr. Urias was seen on 09/21/21 and evaluated for similar complaints. She was complaining of bilateral knee pain just like today patient was on pain management before however she was discharged due to breaking her drug contract. Since then she has had drug-seeking behavior according to note. He is prescribing her tramadol. Upon [employer] review patient has filled oxycodone on November 18 for a total quantity of 10 and on November 12 she was also prescribed 10 oxycodone. Patient should have enough for the next few days. According to rheumatology note from 11/08/2021 it is noted that patient has chronic bilateral knee pain for which she is currently following Orthopedics, her last visit was October 06, patient is not a candidate for knee surgery, injections were offered however patient declined. Patient is also followed by rheumatology. Patient currently taking alendronate. Patient her rheumatology patient has an elevated CRP, sed rate. Unlikely that this is septic joint, gout, pseudogout, likely osteoarthritis or RA. No trauma unlikely fractures or dislocations. No evidence of laxity, low suspicion for ligament or tendon tear. No evident large effusions on exam, no need for joint effusion at this time, augusta wraps applied b/l. No new trauma no need for imaging at this time. And at this time advised to take ibuprofen every 6 hours, Tylenol every 4 as needed for pain or discomfort. Will give her follow-up with pain clinic Medical Records Attestation: I reviewed the patient's medical records. Lab Data Attestation: I reviewed the patient's lab results. Critical Care Time Critical Care Time Critical Care Time: No Discharge Plan Discharge Clinical Impression: Knee pain, Osteoarthritis, Chronic pain Patient Disposition: Still a Patient Instructions: Osteoarthritis (ED), Knee Pain (ED) Additional Instructions: Take your medications as prescribed. If you were prescribed antibiotics today, it is important that you take your medication to their entirety, do not skip any doses, do not finish them early. Follow-up with your primary care provider this week. Return to the emergency department with new or worsening symptoms. Such as fevers, chills, chest pain, shortness of breath, nausea, vomiting, dizziness, headache, vision changes, lethargy In case of emergency call 911 Prescriptions: No Action Narcan 4 mg/actuation spray,non-aerosol 4 mg intranasal Q2M PRN (Reason: opioid overdose) Qty: 2 0RF Rx Instructions: spray 1 dose into ONE nostril; alternate nostrils w each dose until help arrives ferrous sulfate 325 mg (65 mg iron) tablet,delayed release (DR/EC) 325 mg PO DAILY Qty: 30 5RF lorazepam 1 mg tablet 1 mg PO Q8H PRN (Reason: agitation) Qty: 90 5RF alendronate 70 mg tablet 70 mg PO QWEEK Qty: 12 0RF lidocaine [Lidoderm] 5 % adhesive patch,medicated 1 patch topical DAILY MDD remove after 12 hours PRN (Reason: pain) Qty: 30 0RF Rx Instructions: leave on most painful area for up to 12 hrs cyclobenzaprine 5 mg tablet 5 mg PO Q8H PRN (Reason: pain (scale score 7-10)) 5 Days Qty: 14 0RF oxycodone 5 mg tablet 5 mg PO Q4H PRN (Reason: pain) Qty: 10 0RF Rx Instructions: Patient may request partial fill; Partial Fill upon patient request. gabapentin 300 mg capsule 300 mg PO BID Qty: 60 0RF oxycodone 5 mg tablet 5 mg PO BID PRN (Reason: pain) Qty: 10 0RF Rx Instructions: Partial Fill upon patient request. diclofenac sodium [Arthritis Pain (diclofenac)] 1 % gel 2 g topical QID PRN (Reason: pain) Qty: 100 0RF Rx Instructions: apply to single elbow, wrist or hand; for hand includes palm/fingers/back of hand (DME) cane Device See Rx Instructions .Route Qty: 1 0RF Rx Instructions: As directed prednisone 5 mg tablet 5 mg PO BID Qty: 60 0RF Humira(CF) Pen 40 mg/0.4 mL pen injector kit See Rx Instructions subcut .COMPLEX Qty: 2 1RF Rx Instructions: inject one - 40 mg/0.4 mL pen every 2 weeks subcut Ref[place] [facility] [place] [facility] [place]Provider Group] - 2 weeks [facility] [facility] [Provider Group] - 1 week Naveen Urias MD [Primary Care Provider] - 2 days Stand Alone Forms: Work/School Release
[2021-11-25] MEDS: Ketorolac Tromethamine 15 MG/ML VIAL 30 MG IM (01:39)
--- NOTE | 2021-11-25 07:10 | PHA.MEDREC ---
Pharmacy Consult ? Medication Reconciliation Pharmacy has completed the medication reconciliation. Patient was previously here on 11/18. Used discharge packet..
[2021-11-25 09:24] VITALS: BP 130/85; PULSE 70; O2SAT 98
[2021-11-25 11:25] VITALS: BP 121/63; PULSE 80; RESP 16; TEMP 36.8; O2SAT 98
--- NOTE | 2021-11-25 12:00 | MHC.CM.ED ---
Received case management consult overnight. Patient came to the ER due to knee pain. Work up was negative. Physical therapy eval completed. Outpatient services are recommended. Met with patient in regards to discharge planning. Patient lives with her mother, ambulates independently and had no services prior to coming to the hospital. PCP is verified as Dr Urias until the middle of December when her PCP changes to a [place] provider. Patient wants to wait to arrange outpatient physical therapy because she watches her 2 grandsons a couple of days a week. Explained to patient she would have to call Dr Urias's office to arrange outpatient physical therapy eval when she is ready. Patient's daughter will transport patient home when medically stable. Patient is requesting prescription for Oxycodone when discharged. Nona YOO made aware. Per Nona, patient will not receive any narcotics. She violated a pain management constract and picked up an Oxycodone prescription within the last week. She should still have some at home. Nona made the patient aware of this. Continue to monitor for d/c needs.
== END 2021-11-25 12:07 | disposition home or self-care (01) ==
PROVIDERS: Emergency Provider Emergency Medicine; PCP Internal Medicine
DX: M25.562 Pain in left knee (principal); M25.561 Pain in right knee; G89.4 Chronic pain syndrome; M17.0 Bilateral primary osteoarthritis of knee; M05.9 Rheumatoid arthritis with rheumatoid factor, unspecified; Z79.899 Other long term (current) drug therapy; Z79.891 Long term (current) use of opiate analgesic
CPT/HCPCS: 96372; 97161; 99283; 99284; J1885

== ENCOUNTER 2021-11-26 17:36 | Emergency (ER) | payer OTHER, SELFPAY ==
--- NOTE | 2021-11-26 17:41 | PC.NURSE ---
per gistration, pt waiting outside/in car. called x 3 inside wr, and outside in front of hospital no answer.
[2021-11-26 18:11] VITALS: BP 124/70; PULSE 71; RESP 18; TEMP 37.2; O2SAT 96; BMI 25.0
[2021-11-27 04:36] VITALS: BP 161/77; PULSE 63; TEMP 36.7; O2SAT 96
--- NOTE | 2021-11-27 06:20 | ED.EXTPRO ---
HPI - Extremity Problem General Chief complaint: Extremity Problem Stated complaint: knee pain, arthritis Time Seen by Provider: 11/26/21 17:57 Source: patient History of Present Illness HPI Narrative: 66-year-old female with her 4th visit to the emergency room with complaints of bilateral knee pain. Patient states that she has significant osteoarthritis in bilateral knees and has had this for a number of years. She denies any associated fever, chills and states that she has followed up with a primary care provider as well as Orthopedics. Patient denies any sudden changes in her symptoms but states that she is been unable to get adequate pain relief because the tramadol gives her a headache and she is unable to get an oxycodone prescription from ?anyone?. Related Data Home Medications Medication Instructions Recorded Confirmed oxycodone 5 mg tablet 1 tab PO BID PRN pain 11/25/21 11/25/21 Previous Rx's Medication Instructions Recorded naloxone 4 mg/actuation nasal 4 mg intranasal Q2M PRN opioid 07/01/20 spray (Narcan) overdose #2 ea ferrous sulfate 325 mg (65 mg 325 mg PO DAILY #30 tabs 04/21/21 iron) tablet,delayed release lorazepam 1 mg tablet 1 mg PO Q8H PRN agitation #90 tabs 06/13/21 cyclobenzaprine 5 mg tablet 5 mg PO Q8H PRN pain (scale score 08/08/21 7-10) 5 days #14 tabs lidocaine 5 % topical patch 1 patch topical DAILY PRN pain #30 08/08/21 (Lidoderm) ea cane #1 ea 08/18/21 diclofenac sodium 1 % topical gel 2 g topical QID PRN pain #100 grams 08/18/21 (Arthritis Pain (diclofenac)) alendronate 70 mg tablet 70 mg PO QWEEK #12 tabs 11/01/21 adalimumab 40 mg/0.4 mL See Rx Instructions subcut 11/09/21 subcutaneous pen kit (Humira(CF) .COMPLEX #2 ea Pen) prednisone 5 mg tablet 5 mg PO BID #60 tabs 11/09/21 gabapentin 300 mg capsule 300 mg PO BID #60 caps 11/11/21 ketorolac 10 mg tablet 10 mg PO Q6H PRN pain 5 days #20 11/27/21 tabs Allergies Allergy/AdvReac Type Severity Reaction Status Date / Time buprenorphine [Belbuca] Allergy Intermediate nausea Verified 11/24/21 22:08 Review of Systems Review of Systems: Pertinent positives and negatives as stated in HPI 10 point review of systems is otherwise negative. [facility] Past Medical History Source: nursing notes reviewed Medical History Back pain Opiate abuse, episodic Osteoarthritis of both knees Osteopenia determined by x-ray Primary osteoarthritis of knees, bilateral Seropositive rheumatoid arthritis Surgical History History of appendectomy History of cholecystectomy History of D&C History of tonsillectomy Family History Family History Father Acute CVA (cerebrovascular accident) Mother Hypertension Hypercholesterolemia Brother Liver transplant status Family history of thyroid problem Social History Social History Housing: House Alcohol intake: never Patient Tobacco Use Status: Former Tobacco user e-Cigarette/Vaping Use: Never Used Second Hand Smoke Exposure: No Advance Directives: No service: No Current occupational status: employed Cognitive needs: No Hearing needs: No Vision needs: Yes Physical Exam Vital Signs: Vital Signs: Last Vital Signs Temp 98.1 F 11/27/21 04:36 Pulse 63 11/27/21 04:36 Resp 18 11/26/21 18:11 BP 161/77 H 11/27/21 04:36 Pulse Ox 96 11/27/21 04:36 O2 Del Method 11/27/21 04:36 BMI result Body Mass Index 25.0 VITAL SIGNS: Reviewed. GENERAL: Well developed, well nourished, in no acute distress. HEAD: Normocephalic/atraumatic EYES: PERRLA, EOMI EARS: Ext canals without abnormality OROPHARYNX: no oral lesions noted, posterior pharynx clear LUNGS: Normal breath sounds. No adventitious sounds or accessory muscle use. SpO2<96> CARDIOVASCULAR: Regular rate and rhythm without noted murmurs ABDOMEN: Soft, non-tender, non-distended with bowel sounds. MUSCULOSKELETAL: No tenderness, deformities, or effusions noted on gross inspection. EXTREMITIES: No cyanosis, clubbing or edema; BILATERAL KNEES: No erythema or induration, positive crepitus. SKIN: Inspection of the skin reveals no rashes NEUROLOGIC: Alert and oriented x 4. Strength and sensation to light touch were grossly intact x 4. Course Course Course Narrative: 66-year-old female with history and clinical presentation consistent with opioid seeking behavior, this is the 4th visit this month and on review of all prior documentation patient is been offered physical therapy, knee brace is, alternate medications for pain if patient has either declined or does not want to participate. She is adamant that oxycodone is what she needs for her knee pain. I explained to the patient that I am unable to give her opioids, but we can try a combination of Tylenol and Toradol to see if that helps her. On re-evaluation patient is feeling somewhat better and was strongly encouraged to follow-up with her primary care provider. Discharge Plan Discharge Clinical Impression: Osteoarthritis of both knees, Chronic pain syndrome Patient Disposition: Home, Self-Care Instructions: Osteoarthritis (ED), Chronic Pain (ED), Knee Pain (ED) Additional Instructions: 1. Resume all home medications as prescribed. 2. Tylenol 1000 mg, orally, every 6 hours as needed for pain control. Do not exceed 4000 mg within 24 hours. 3. Recommend [id number]-wrulgue lidocaine patch, apply to area of maximal tenderness as directed on the outside packaging. You may consider 4% lidocaine gel to apply to bilateral knees. 4. Please follow-up with your primary care provider as well as your skilled nursing facilities professional. Prescriptions: New ketorolac 10 mg tablet 10 mg PO Q6H PRN (Reason: pain) 5 Days Qty: 20 0RF Rx Instructions: Patient received Toradol in the emergency room Please instruct patient to stop using other NSAIDs. No Action Narcan 4 mg/actuation spray,non-aerosol 4 mg intranasal Q2M PRN (Reason: opioid overdose) Qty: 2 0RF Rx Instructions: spray 1 dose into ONE nostril; alternate nostrils w each dose until help arrives ferrous sulfate 325 mg (65 mg iron) tablet,delayed release (DR/EC) 325 mg PO DAILY Qty: 30 5RF lorazepam 1 mg tablet 1 mg PO Q8H PRN (Reason: agitation) Qty: 90 5RF alendronate 70 mg tablet 70 mg PO QWEEK Qty: 12 0RF lidocaine [Lidoderm] 5 % adhesive patch,medicated 1 patch topical DAILY MDD remove after 12 hours PRN (Reason: pain) Qty: 30 0RF Rx Instructions: leave on most painful area for up to 12 hrs cyclobenzaprine 5 mg tablet 5 mg PO Q8H PRN (Reason: pain (scale score 7-10)) 5 Days Qty: 14 0RF gabapentin 300 mg capsule 300 mg PO BID Qty: 60 0RF oxycodone 5 mg tablet 1 tab PO BID PRN (Reason: pain) diclofenac sodium [Arthritis Pain (diclofenac)] 1 % gel 2 g topical QID PRN (Reason: pain) Qty: 100 0RF Rx Instructions: apply to single elbow, wrist or hand; for hand includes palm/fingers/back of hand (DME) cane Device See Rx Instructions .Route Qty: 1 0RF Rx Instructions: As directed prednisone 5 mg tablet 5 mg PO BID Qty: 60 0RF Humira(CF) Pen 40 mg/0.4 mL pen injector kit See Rx Instructions subcut .COMPLEX Qty: 2 1RF Rx Instructions: inject one - 40 mg/0.4 mL pen every 2 weeks subcut Referrals: Naveen Urias MD [Primary Care Provider] - Interventions: LWBS Worksheet Last Done: 11/26/21 20:13
[2021-11-27] MEDS: Acetaminophen 325 MG TABLET 975 MG PO (06:40)
[2021-11-27] MEDS: Ketorolac Tromethamine 15 MG/ML VIAL IM (06:42)
--- NOTE | 2021-11-27 06:48 | PC.NURSE ---
Pt. c/o pain in knee. Pt. states she has a doctor appt. coming up next month and just needs some medication to get her by until then. Pt. requesting oxycodone. Pt. was medicated with tylenol and ketoraloc per MAY.
== END 2021-11-27 07:25 | disposition home or self-care (01) ==
PROVIDERS: Emergency Provider Student in an Organized Health Care Education/Training Program; PCP Internal Medicine
DX: G89.4 Chronic pain syndrome (principal); M17.0 Bilateral primary osteoarthritis of knee; M25.562 Pain in left knee; M25.561 Pain in right knee; F11.20 Opioid dependence, uncomplicated; Z76.5 Malingerer [conscious simulation]
CPT/HCPCS: 96372; 99283; 99284; J1885

== ENCOUNTER 2021-12-28 11:53 | Outpatient (REF) | payer OTHER, SELFPAY | END 2021-12-28 11:54 | disposition home or self-care (01) | LOC: HO.LAB 11:53 | PROVIDERS: Visit Provider Hospitalist | DX: N39.0 Urinary tract infection, site not specified (principal); R30.0 Dysuria | CPT/HCPCS: 87086; 87088; 87186 ==

== ENCOUNTER 2022-01-04 21:52 | Emergency (ER) | payer OTHER, SELFPAY ==
[2022-01-04 22:20] VITALS: BP 170/74; PULSE 93; RESP 18; TEMP 36.6; O2SAT 96; BMI 26.9
--- NOTE | 2022-01-05 02:08 | ED_ITS ---
HPI - Extremity Problem General Chief complaint: Extremity Problem Stated complaint: knee pain Time Seen by Provider: 01/05/22 01:43 Source: patient Mode of arrival: ambulatory Limitations: no limitations History of Present Illness HPI Narrative: Patient has chronic osteoarthritis both knee followed by pain clinic and ortho specialist on diclofenac sodium and Humira injections come here for increased pain with swelling which is going on for last few weeks no recent trauma. Patient used to be on oxycodone before and unable to follow-up with pain clinic and is not taking any oxycodone asking for oxycodone to help with the pain Related Data Previous Rx's Medication Instructions Recorded naloxone 4 mg/actuation nasal 4 mg intranasal Q2M PRN opioid 07/01/20 spray (Narcan) overdose #2 ea ferrous sulfate 325 mg (65 mg 325 mg PO DAILY #30 tabs 04/21/21 iron) tablet,delayed release cyclobenzaprine 5 mg tablet 5 mg PO Q8H PRN pain (scale score 08/08/21 7-10) 5 days #14 tabs lidocaine 5 % topical patch 1 patch topical DAILY PRN pain #30 08/08/21 (Lidoderm) ea cane #1 ea 08/18/21 diclofenac sodium 1 % topical gel 2 g topical QID PRN pain #100 grams 08/18/21 (Arthritis Pain (diclofenac)) alendronate 70 mg tablet 70 mg PO QWEEK #12 tabs 11/01/21 adalimumab 40 mg/0.4 mL See Rx Instructions subcut 11/09/21 subcutaneous pen kit (Humira(CF) .COMPLEX #2 ea Pen) ketorolac 10 mg tablet 10 mg PO Q6H PRN pain 5 days #20 11/27/21 tabs prednisone 5 mg tablet 5 mg PO BID #60 tabs 12/11/21 gabapentin 300 mg capsule 300 mg PO BID #60 caps 12/28/21 sulfamethoxazole 800 1 tab PO Q12H #6 tabs 12/28/21 mg-trimethoprim 160 mg tablet (Bactrim DS) levofloxacin 250 mg tablet 250 mg PO Q24H #3 tabs 01/02/22 celecoxib 200 mg capsule 200 mg PO BID PRN pain 30 days #60 01/03/22 caps sertraline 50 mg tablet 50 mg PO DAILY 30 days #30 tabs 01/03/22 oxycodone-acetaminophen 5 mg-325 1 tab PO Q6H PRN pain #20 tabs 01/05/22 mg tablet (Percocet) Allergies Allergy/AdvReac Type Severity Reaction Status Date / Time buprenorphine [Belbuca] Allergy Intermediate nausea Verified 12/28/21 11:55 Review of Systems Review of Systems: Yes all other systems are reviewed and are negative [facility] Past Medical History Medical History Back pain Opiate abuse, episodic Osteoarthritis of both knees Osteopenia determined by x-ray Primary osteoarthritis of knees, bilateral Seropositive rheumatoid arthritis Surgical History History of appendectomy History of cholecystectomy History of D&C History of tonsillectomy Family History Family History Father Acute CVA (cerebrovascular accident) Mother Hypertension Hypercholesterolemia Brother Liver transplant status Family history of thyroid problem Social History Social History Housing: House Alcohol intake: never Patient Tobacco Use Status: Former Tobacco user e-Cigarette/Vaping Use: Never Used Second Hand Smoke Exposure: No Advance Directives: No Advance Directives Information Provided: No service: No Current occupational status: employed and 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 Cognitive needs: No Hearing needs: No Vision needs: Yes Physical Exam Vital Signs: Vital Signs: Last Vital Signs Temp 97.9 F 01/04/22 22:20 Pulse 93 01/04/22 22:20 Resp 18 01/04/22 22:20 BP 170/74 H 01/04/22 22:20 Pulse Ox 96 01/04/22 22:20 O2 Del Method 01/04/22 22:20 BMI result Body Mass Index 26.9 Appearance: Alert. Oriented X3. No acute distress. ENT: Pharynx normal. Oral Mucosa moist Neck: Normal inspection. Neck supple. CVS: Normal heart rate and rhythm. Pulses normal. Respiratory: No respiratory distress. Equal air entry bilateral, Abdomen: Soft and nontender. Bowel sounds are present, no mass palpable, no CVA tenderness Skin: Skin warm and dry. Normal skin color. Normal skin turgor. Extremities: No lower extremity edema. No calf tenderness bilateral knee diffuse swelling and tenderness mild effusion Neuro: Oriented X 3. No motor deficit. Discharge Plan Discharge Clinical Impression: Osteoarthritis of both knees Patient Disposition: Home, Self-Care Instructions: Osteoarthritis (ED) Additional Instructions: Continue pain medication and follow-up with orthopedics Use Nas wrap/knee bend as provided by your specialist Prescriptions: New oxycodone-acetaminophen [Percocet] 5-325 mg tablet 1 tab PO Q6H PRN (Reason: pain) Qty: 20 0RF Rx Instructions: Partial Fill upon patient request. No Action Narcan 4 mg/actuation spray,non-aerosol 4 mg intranasal Q2M PRN (Reason: opioid overdose) Qty: 2 0RF Rx Instructions: spray 1 dose into ONE nostril; alternate nostrils w each dose until help ar gali ferrous sulfate 325 mg (65 mg iron) tablet,delayed release (DR/EC) 325 mg PO DAILY Qty: 30 5RF alendronate 70 mg tablet 70 mg PO QWEEK Qty: 12 0RF prednisone 5 mg tablet 5 mg PO BID Qty: 60 0RF levofloxacin 250 mg tablet 250 mg PO Q24H Qty: 3 0RF Rx Instructions: ecoli infection not resolved with bactrim celecoxib 200 mg capsule 200 mg PO BID PRN (Reason: pain) 30 Days Qty: 60 0RF sertraline 50 mg tablet 50 mg PO DAILY 30 Days Qty: 30 0RF ketorolac 10 mg tablet 10 mg PO Q6H PRN (Reason: pain) 5 Days Qty: 20 0RF Rx Instructions: Patient received Toradol in the emergency room Please instruct patient to stop using other NSAIDs. lidocaine [Lidoderm] 5 % adhesive patch,medicated 1 patch topical DAILY MDD remove after 12 hours PRN (Reason: pain) Qty: 30 0RF Rx Instructions: leave on most painful area for up to 12 hrs cyclobenzaprine 5 mg tablet 5 mg PO Q8H PRN (Reason: pain (scale score 7-10)) 5 Days Qty: 14 0RF diclofenac sodium [Arthritis Pain (diclofenac)] 1 % gel 2 g topical QID PRN (Reason: pain) Qty: 100 0RF Rx Instructions: apply to single elbow, wrist or hand; for hand includes palm/fingers/back of hand (DME) cane Device See Rx Instructions .Route Qty: 1 0RF Rx Instructions: As directed gabapentin 300 mg capsule 300 mg PO BID Qty: 60 0RF sulfamethoxazole-trimethoprim [Bactrim DS] 800-160 mg tablet 1 tab PO Q12H Qty: 6 0RF Humira(CF) Pen 40 mg/0.4 mL pen injector kit See Rx Instructions subcut .COMPLEX Qty: 2 1RF Rx Instructions: inject one - 40 mg/0.4 mL pen every 2 weeks subcut
[2022-01-05] MEDS: oxyCODONE HCl Immed Release 5 MG TABLET PO (02:14)
== END 2022-01-05 02:16 | disposition home or self-care (01) ==
PROVIDERS: Emergency Provider Internal Medicine
DX: M17.0 Bilateral primary osteoarthritis of knee (principal); Z79.899 Other long term (current) drug therapy; Z87.891 Personal history of nicotine dependence
CPT/HCPCS: 99283

== ENCOUNTER 2022-01-11 15:12 | Outpatient (REF) | payer OTHER, SELFPAY | END 2022-01-11 15:13 | disposition home or self-care (01) | LOC: HO.LAB 15:12 | PROVIDERS: Visit Provider Family Medicine | DX: Z13.89 Encounter for screening for other disorder (principal) ==

== ENCOUNTER 2022-01-17 13:22 | Outpatient (REF) | payer OTHER, SELFPAY ==
[2022-01-17 13:51] LABS: MANUAL DIFF FLAG NO
[2022-01-17 14:08] LABS: Basophils Absolute Auto 0.1 X10*3/uL (0.0-0.2); Basophils Percent Auto 0.9 % (0-2); Eosinophils Absolute Auto 0.1 X10*3/uL (0.0-0.4); Hematocrit 32.6 % (37.0-47.0); Hemoglobin 10.2 g/dl (12.0-16.0); Imm Gran Abs Auto 0.03 X10*3/uL (0.00-0.03); Imm Gran Pct Auto 0.5 % (0.0-0.4); Lymphocytes Absolute Auto 0.8 X10*3/uL (1.2-4.9); Lymphocytes Percent Auto 13.9 % (20-40); Mean Corpuscular HGB Conc 31.3 g/dl (31.0-35.0); Mean Corpuscular Hemoglobin 25.9 pg (27.0-33.0); Mean Corpuscular Volume 82.7 fL (80.0-98.0); Mean Platelet Volume 8.6 fL (9.4-12.3); Monocytes Absolute Auto 0.3 X10*3/uL (0.1-1.2); Neutrophils Absolute Auto 4.5 x10*3/uL (2.0-8.3); Neutrophils Percent Auto 78.7 % (45-73); Platelet Count 455 X10*3/uL (160-400); Red Blood Count 3.94 X10*6/uL (4.20-5.50); Red Cell Distribution Width 15.4 % (11.0-16.0); White Blood Count 5.8 X10*3/uL (4.8-10.8)
[2022-01-17 14:41] LABS: Appearance Urine Clear; Color Urine Yellow; Glucose Urine UA Negative (Negative); Leukocyte Esterase Urine Negative (Negative); Nitrite Urine Negative (Negative); Specific Gravity - Urine 1.025 (1.005-1.025); Urine Blood Negative (Negative); Urine Ketones Trace mg/dL (Negative); Urine Protein Trace mg/dL (Neg-Trace)
[2022-01-17 14:53] LABS: Erythrocyte Sedimentation Rate 79 MM/HR (0-20)
[2022-01-17 15:08] LABS: Alanine Aminotransferase 17 U/L (0-31); Aspartate Amino Transferase 16 U/L (5-31); Blood Urea Nitrogen 8 mg/dL (9-16); C Reactive Protein 4.12 mg/dL (< or = 0.50); Estimated Glomerular Filt Rate > 60; Ferritin 144 ng/mL (10-250); Iron 31 mcg/dL (30-160); Percent Iron Saturation 12 % (15-50); Total Iron Binding Capacity 265 mcg/dL (228-428); Unsaturated Iron Binding 234 ug/dL
[2022-01-17 15:39] LABS: Vitamin B12 403 pg/mL (200-900)
== END 2022-01-17 13:23 | disposition home or self-care (01) ==
LOC: HO.LAB 13:22
PROVIDERS: Absent Provider Family Medicine; PCP Family Medicine; Visit Provider Nurse Practitioner Family
DX: Z00.00 Encounter for general adult medical examination without abnormal findings (principal); M05.9 Rheumatoid arthritis with rheumatoid factor, unspecified; D64.9 Anemia, unspecified; N39.0 Urinary tract infection, site not specified; Z79.899 Other long term (current) drug therapy
CPT/HCPCS: 36415; 81003; 82565; 82607; 82728; 83540; 84450; 84460; 84520; 85025; 85652; 86140; 87086

== ENCOUNTER 2022-02-04 15:26 | Emergency (ER) | payer OTHER, SELFPAY ==
--- NOTE | ~2022-02-04 | XR_ITS ---
EXAMINATION: BILATERAL KNEES CLINICAL INFORMATION: Bilateral knee pain COMPARISON: 10/06/2021 and 09/27/2021 TECHNIQUE: AP and lateral views of each knee FINDINGS: Left: Again seen are severe degenerative changes in the left knee with narrowing of all 3 compartments. A small joint effusion is present. Most marked narrowing is seen in the medial compartment where there is an area of subchondral lucency unchanged when compared to the prior study. Subchondral cystic area also present in the lateral femoral condyle, unchanged from prior. Right: Again seen are moderate tricompartmental degenerative changes are seen with narrowing of all 3 compartments. A small joint effusion is present. Some subchondral cystic changes are seen in the medial femoral condyle. XR/XR knee LT 2V IMPRESSION: 1. No significant interval change when compared to the prior study. 2. Significant tricompartmental degenerative changes in both knees, left worse in the right.
--- NOTE | ~2022-02-04 | XR_ITS ---
EXAMINATION: BILATERAL KNEES CLINICAL INFORMATION: Bilateral knee pain COMPARISON: 10/06/2021 and 09/27/2021 TECHNIQUE: AP and lateral views of each knee FINDINGS: Left: Again seen are severe degenerative changes in the left knee with narrowing of all 3 compartments. A small joint effusion is present. Most marked narrowing is seen in the medial compartment where there is an area of subchondral lucency unchanged when compared to the prior study. Subchondral cystic area also present in the lateral femoral condyle, unchanged from prior. Right: Again seen are moderate tricompartmental degenerative changes are seen with narrowing of all 3 compartments. A small joint effusion is present. Some subchondral cystic changes are seen in the medial femoral condyle. XR/XR knee RT 2V IMPRESSION: 1. No significant interval change when compared to the prior study. 2. Significant tricompartmental degenerative changes in both knees, left worse in the right.
[2022-02-04 16:47] VITALS: BP 137/78; PULSE 74; RESP 18; TEMP 36.7; O2SAT 95; BMI 25.0
--- NOTE | 2022-02-04 16:47 | ED_ITS ---
HPI - General Adult General Chief complaint: General Medical Stated complaint: knee pain/swelling no injury Time Seen by Provider: 02/04/22 20:23 Source: patient Mode of arrival: ambulatory Limitations: no limitations Related Data Previous Rx's Medication Instructions Recorded naloxone 4 mg/actuation nasal 4 mg intranasal Q2M PRN opioid 07/01/20 spray (Narcan) overdose #2 ea ferrous sulfate 325 mg (65 mg 325 mg PO DAILY #30 tabs 04/21/21 iron) tablet,delayed release cyclobenzaprine 5 mg tablet 5 mg PO Q8H PRN pain (scale score 08/08/21 7-10) 5 days #14 tabs lidocaine 5 % topical patch 1 patch topical DAILY PRN pain #30 08/08/21 (Lidoderm) ea cane #1 ea 08/18/21 diclofenac sodium 1 % topical gel 2 g topical QID PRN pain #100 grams 08/18/21 (Arthritis Pain (diclofenac)) alendronate 70 mg tablet 70 mg PO QWEEK #12 tabs 11/01/21 adalimumab 40 mg/0.4 mL See Rx Instructions subcut 11/09/21 subcutaneous pen kit (Humira(CF) .COMPLEX #2 ea Pen) ketorolac 10 mg tablet 10 mg PO Q6H PRN pain 5 days #20 11/27/21 tabs sulfamethoxazole 800 1 tab PO Q12H #6 tabs 12/28/21 mg-trimethoprim 160 mg tablet (Bactrim DS) levofloxacin 250 mg tablet 250 mg PO Q24H #3 tabs 01/02/22 celecoxib 200 mg capsule 200 mg PO BID PRN pain 30 days #60 01/03/22 caps mirtazapine 15 mg tablet 15 mg PO DAILY 30 days #30 tabs 01/11/22 prednisone 5 mg tablet 5 mg PO BID #60 tabs 01/27/22 gabapentin 600 mg tablet 600 mg PO DAILY 30 days #30 tabs 01/30/22 cefuroxime axetil 250 mg tablet 250 mg PO BID 7 days #14 tabs 02/04/22 oxycodone 5 mg tablet 5 mg PO Q6H PRN pain #20 tabs 02/04/22 Allergies Allergy/AdvReac Type Severity Reaction Status Date / Time buprenorphine [Belbuca] Allergy Intermediate nausea Verified 01/11/22 14:49 [facility] Past Medical History Medical History Back pain Opiate abuse, episodic Osteoarthritis of both knees Osteopenia determined by x-ray Primary osteoarthritis of knees, bilateral Seropositive rheumatoid arthritis Surgical History History of appendectomy History of cholecystectomy History of D&C History of tonsillectomy Family History Family History Father Acute CVA (cerebrovascular accident) Mother Hypertension Hypercholesterolemia Brother Liver transplant status Family history of thyroid problem Social History Social History Housing: House Alcohol intake: never Patient Tobacco Use Status: Former Tobacco user Smoked in Last 30 Days: No e-Cigarette/Vaping Use: Never Used Second Hand Smoke Exposure: No Use of substances other than those prescribed or required for medical reasons: No Advance Directives: No Advance Directives Information Provided: No service: No Current occupational status: employed and 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 Cognitive needs: No Hearing needs: No Vision needs: Yes Physical Exam ED Vital Signs: Vital Signs - 24 hr 02/04/22 16:47 02/04/22 21:09 Temperature 98.1 F 97.9 F Pulse Rate 74 71 Respiratory Rate 18 18 Blood Pressure 137/78 122/67 Pulse Oximetry 95 97 Oxygen Delivery Method Room Air Room Air BMI result Body Mass Index 25.0 Course Course Course Narrative: RME performed by Alyssa Conway PA-C. Patient is a 66 year old female with bilateral knee pain. Patient states that her knees are hurting her very badly and she would like x-rays to see how bad they are. Bilateral knee XRs ordered. Patient placed back in waiting room pending results and bed availability. Patient seen and discharged by Dr. Kidd who created and completed a separate note. Medications Administered Discontinued Medications Generic Name Dose Route Start Last Admin Trade Name Freq PRN Reason Stop Dose Admin Cefuroxime Axetil 250 mg 02/04/22 21:03 02/04/22 21:18 Cefuroxime Axetil 250 Mg Tablet PO 02/04/22 21:04 250 mg ONCE ONE Administration Oxycodone HCl 5 mg 02/04/22 21:04 02/04/22 21:17 Oxycodone Hcl Immed Release 5 Mg Tablet PO 02/04/22 21:05 5 mg ONCE ONE Administration Medical Decision Making Lab Data Labs: Lab Results 02/04/22 Range/Units 17:22 Urine Color Yellow Urine Appearance Cloudy Urine pH 5.5 (5.0-9.0) Ur Specific [place] 1.010 (1.005-1.025) Urine Protein 30 (1+) H (Neg-Trace) mg/dL Urine Glucose (UA) Negative (Negative) mg/dL Urine Ketones Negative (Negative) mg/dL Urine Blood Moderate (2+) H (Negative) Urine Nitrite Negative (Negative) Ur Leukocyte Esterase Large (3+) H (Negative) Urine RBC 3-5 H (0-2) /HPF Urine WBC 21-50 (0-5) /HPF Ur Squamous Epith Cells 0-2 (0-2) /HPF Urine Bacteria 2+ (None Seen) Hyaline Casts 0-2 (0-2) /LPF Discharge Plan Discharge Clinical Impression: Osteoarthritis of both knees, UTI (urinary tract infection) Patient Disposition: Home, Self-Care Instructions: Urinary Tract Infection in Women (ED), Arthritis (ED) Additional Instructions: Continue pain medication as provided by her PCP Oxycodone for severe pain Antibiotic for urinary tract infection Drink plenty of fluids Prescriptions: New oxycodone 5 mg tablet 5 mg PO Q6H PRN (Reason: pain) Qty: 20 0RF Rx Instructions: Partial Fill upon patient request. cefuroxime axetil 250 mg tablet 250 mg PO BID 7 Days Qty: 14 0RF No Action Narcan 4 mg/actuation spray,non-aerosol 4 mg intranasal Q2M PRN (Reason: opioid overdose) Qty: 2 0RF Rx Instructions: spray 1 dose into ONE nostril; alternate nostrils w each dose until help arrives ferrous sulfate 325 mg (65 mg iron) tablet,delayed release (DR/EC) 325 mg PO DAILY Qty: 30 5RF alendronate 70 mg tablet 70 mg PO QWEEK Qty: 12 0RF levofloxacin 250 mg tablet 250 mg PO Q24H Qty: 3 0RF Rx Instructions: ecoli infection not resolved with bactrim celecoxib 200 mg capsule 200 mg PO BID PRN (Reason: pain) 30 Days Qty: 60 0RF prednisone 5 mg tablet 5 mg PO BID Qty: 60 0RF gabapentin 600 mg tablet 600 mg PO DAILY 30 Days Qty: 30 1RF ketorolac 10 mg tablet 10 mg PO Q6H PRN (Reason: pain) 5 Days Qty: 20 0RF Rx Instructions: Patient received Toradol in the emergency room Please instruct patient to stop using other NSAIDs. lidocaine [Lidoderm] 5 % adhesive patch,medicated 1 patch topical DAILY MDD remove after 12 hours PRN (Reason: pain) Qty: 30 0RF Rx Instructions: leave on most painful area for up to 12 hrs cyclobenzaprine 5 mg tablet 5 mg PO Q8H PRN (Reason: pain (scale score 7-10)) 5 Days Qty: 14 0RF diclofenac sodium [Arthritis Pain (diclofenac)] 1 % gel 2 g topical QID PRN (Reason: pain) Qty: 100 0RF Rx Instructions: apply to single elbow, wrist or hand; for hand includes palm/fingers/back of hand (DME) cane Device See Rx Instructions .Route Qty: 1 0RF Rx Instructions: As directed mirtazapine 15 mg tablet 15 mg PO DAILY 30 Days Qty: 30 0RF sulfamethoxazole-trimethoprim [Bactrim DS] 800-160 mg tablet 1 tab PO Q12H Qty: 6 0RF Humira(CF) Pen 40 mg/0.4 mL pen injector kit See Rx Instructions subcut .COMPLEX Qty: 2 1RF Rx Instructions: inject one - 40 mg/0.4 mL pen every 2 weeks subcut Interventions: ED Discharge Assessment Last Done: 02/04/22 21:22 Discharge Date/Time: 02/04/22 21:22
[2022-02-04 17:29] LABS: Appearance Urine Cloudy; Color Urine Yellow; Glucose Urine UA Negative (Negative); Leukocyte Esterase Urine Large (3+) (Negative); Nitrite Urine Negative (Negative); PH 5.5 (5.0-9.0); UMIC TRIGGER UACC YES; Urine Blood Moderate (2+) (Negative); Urine Ketones Negative (Negative); Urine Protein 30 (1+) mg/dL (Neg-Trace)
[2022-02-04 17:39] LABS: Bacteria Urine 2+ (None Seen); Hyaline Casts Urine 0-2 /LPF (0-2); Squamous Epithelial Cell Urine 0-2 /HPF (0-2); UACC Culture Trigger YES; WBC Urine 21-50 /HPF (0-5)
--- NOTE | 2022-02-04 21:03 | ED.GENADULT ---
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 her pain medication not working unable to get oxycodone no recent fall or injury Related Data Previous Rx's Medication Instructions Recorded naloxone 4 mg/actuation nasal 4 mg intranasal Q2M PRN opioid 07/01/20 spray (Narcan) overdose #2 ea ferrous sulfate 325 mg (65 mg 325 mg PO DAILY #30 tabs 04/21/21 iron) tablet,delayed release cyclobenzaprine 5 mg tablet 5 mg PO Q8H PRN pain (scale score 08/08/21 7-10) 5 days #14 tabs lidocaine 5 % topical patch 1 patch topical DAILY PRN pain #30 08/08/21 (Lidoderm) ea cane #1 ea 08/18/21 diclofenac sodium 1 % topical gel 2 g topical QID PRN pain #100 grams 08/18/21 (Arthritis Pain (diclofenac)) alendronate 70 mg tablet 70 mg PO QWEEK #12 tabs 11/01/21 adalimumab 40 mg/0.4 mL See Rx Instructions subcut 11/09/21 subcutaneous pen kit (Humira(CF) .COMPLEX #2 ea Pen) ketorolac 10 mg tablet 10 mg PO Q6H PRN pain 5 days #20 11/27/21 tabs sulfamethoxazole 800 1 tab PO Q12H #6 tabs 12/28/21 mg-trimethoprim 160 mg tablet (Bactrim DS) levofloxacin 250 mg tablet 250 mg PO Q24H #3 tabs 01/02/22 celecoxib 200 mg capsule 200 mg PO BID PRN pain 30 days #60 01/03/22 caps mirtazapine 15 mg tablet 15 mg PO DAILY 30 days #30 tabs 01/11/22 prednisone 5 mg tablet 5 mg PO BID #60 tabs 01/27/22 gabapentin 600 mg tablet 600 mg PO DAILY 30 days #30 tabs 01/30/22 cefuroxime axetil 250 mg tablet 250 mg PO BID 7 days #14 tabs 02/04/22 oxycodone 5 mg tablet 5 mg PO Q6H PRN pain #20 tabs 02/04/22 Allergies Allergy/AdvReac Type Severity Reaction Status Date / Time buprenorphine [Belbuca] Allergy Intermediate nausea Verified 01/11/22 14:49 Review of Systems Review of Systems: Yes all other systems are reviewed and are negative [facility] Past Medical History Medical History Back pain Opiate abuse, episodic Osteoarthritis of both knees Osteopenia determined by x-ray Primary osteoarthritis of knees, bilateral Seropositive rheumatoid arthritis Surgical History History of appendectomy History of cholecystectomy History of D&C History of tonsillectomy Family History Family History Father Acute CVA (cerebrovascular accident) Mother Hypertension Hypercholesterolemia Brother Liver transplant status Family history of thyroid problem Social History Social History Housing: House Alcohol intake: never Patient Tobacco Use Status: Former Tobacco user Smoked in Last 30 Days: No e-Cigarette/Vaping Use: Never Used Second Hand Smoke Exposure: No Use of substances other than those prescribed or required for medical reasons: No Advance Directives: No Advance Directives Information Provided: No service: No Current occupational status: employed and 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 Cognitive needs: No Hearing needs: No Vision needs: Yes Physical Exam ED Vital Signs: Vital Signs - 24 hr 02/04/22 16:47 02/04/22 21:09 Temperature 98.1 F 97.9 F Pulse Rate 74 71 Respiratory Rate 18 18 Blood Pressure 137/78 122/67 Pulse Oximetry 95 97 Oxygen Delivery Method Room Air Room Air BMI result Body Mass Index 25.0 Appearance: Alert. Oriented X3. No acute distress. CVS: Normal heart rate and rhythm. Pulses normal. Respiratory: No respiratory distress. Equal air entry bilateral, no wheezing/rales/rhonchi Abdomen: Soft and nontender. Bowel sounds are present, Skin: Skin warm and dry. Normal skin color. Normal skin turgor. Extremities: Diffuse swelling with effusion of both knees good range of movement Neuro: Oriented X 3. No motor deficit. Medications Administered Discontinued Medications Generic Name Dose Route Start Last Admin Trade Name Joel PRN Reason Stop Dose Admin Cefuroxime Axetil 250 mg 02/04/22 21:03 02/04/22 21:18 Cefuroxime Axetil 250 Mg Tablet PO 02/04/22 21:04 250 mg ONCE ONE Administration Oxycodone HCl 5 mg 02/04/22 21:04 02/04/22 21:17 Oxycodone Hcl Immed Release 5 Mg Tablet PO 02/04/22 21:05 5 mg ONCE ONE Administration Medical Decision Making MDM Narrative Medical decision making narrative: X-ray negative for any acute pathology patient advised to follow with dermatology/PCP Lab Data Labs: Lab Results 02/04/22 Range/Units 17:22 Urine Color Yellow Urine Appearance Cloudy Urine pH 5.5 (5.0-9.0) Ur Specific [place] 1.010 (1.005-1.025) Urine Protein 30 (1+) H (Neg-Trace) mg/dL Urine Glucose (UA) Negative (Negative) mg/dL Urine Ketones Negative (Negative) mg/dL Urine Blood Moderate (2+) H (Negative) Urine Nitrite Negative (Negative) Ur Leukocyte Esterase Large (3+) H (Negative) Urine RBC 3-5 H (0-2) /HPF Urine WBC 21-50 (0-5) /HPF Ur Squamous Epith Cells 0-2 (0-2) /HPF Urine Bacteria 2+ (None Seen) Hyaline Casts 0-2 (0-2) /LPF Discharge Plan Discharge Clinical Impression: Osteoarthritis of both knees, UTI (urinary tract infection) Patient Disposition: Home, Self-Care Instructions: Urinary Tract Infection in Women (ED), Arthritis (ED) Additional Instructions: Continue pain medication as provided by her PCP Oxycodone for severe pain Antibiotic for urinary tract infection Drink plenty of fluids Prescriptions: New oxycodone 5 mg tablet 5 mg PO Q6H PRN (Reason: pain) Qty: 20 0RF Rx Instructions: Partial Fill upon patient request. cefuroxime axetil 250 mg tablet 250 mg PO BID 7 Days Qty: 14 0RF No Action Narcan 4 mg/actuation spray,non-aerosol 4 mg intranasal Q2M PRN (Reason: opioid overdose) Qty: 2 0RF Rx Instructions: spray 1 dose into ONE nostril; alternate nostrils w each dose until help arrives ferrous sulfate 325 mg (65 mg iron) tablet,delayed release (DR/EC) 325 mg PO DAILY Qty: 30 5RF alendronate 70 mg tablet 70 mg PO QWEEK Qty: 12 0RF levofloxacin 250 mg tablet 250 mg PO Q24H Qty: 3 0RF Rx Instructions: ecoli infection not resolved with bactrim celecoxib 200 mg capsule 200 mg PO BID PRN (Reason: pain) 30 Days Qty: 60 0RF prednisone 5 mg tablet 5 mg PO BID Qty: 60 0RF gabapentin 600 mg tablet 600 mg PO DAILY 30 Days Qty: 30 1RF ketorolac 10 mg tablet 10 mg PO Q6H PRN (Reason: pain) 5 Days Qty: 20 0RF Rx Instructions: Patient received Toradol in the emergency room Please instruct patient to stop using other NSAIDs. lidocaine [Lidoderm] 5 % adhesive patch,medicated 1 patch topical DAILY MDD remove after 12 hours PRN (Reason: pain) Qty: 30 0RF Rx Instructions: leave on most painful area for up to 12 hrs cyclobenzaprine 5 mg tablet 5 mg PO Q8H PRN (Reason: pain (scale score 7-10)) 5 Days Qty: 14 0RF diclofenac sodium [Arthritis Pain (diclofenac)] 1 % gel 2 g topical QID PRN (Reason: pain) Qty: 100 0RF Rx Instructions: apply to single elbow, wrist or hand; for hand includes palm/fingers/back of hand (DME) cane Device See Rx Instructions .Route Qty: 1 0RF Rx Instructions: As directed mirtazapine 15 mg tablet 15 mg PO DAILY 30 Days Qty: 30 0RF sulfamethoxazole-trimethoprim [Bactrim DS] 800-160 mg tablet 1 tab PO Q12H Qty: 6 0RF Humira(CF) Pen 40 mg/0.4 mL pen injector kit See Rx Instructions subcut .COMPLEX Qty: 2 1RF Rx Instructions: inject one - 40 mg/0.4 mL pen every 2 weeks subcut Interventions: ED Discharge Assessment Last Done: 02/04/22 21:22 Discharge Date/Time: 02/04/22 21:22
[2022-02-04 21:09] VITALS: BP 122/67; PULSE 71; RESP 18; TEMP 36.6; O2SAT 97
[2022-02-04] MEDS: oxyCODONE HCl Immed Release 5 MG TABLET PO (21:17)
--- NOTE | 2022-02-04 21:21 | PC.NURSE ---
Discharge instructions given and explained. Patient ambulates safely and independently. No apparent distress. All of patient's questions answered.
== END 2022-02-04 21:22 | disposition home or self-care (01) ==
PROVIDERS: Emergency Provider Internal Medicine; PCP Family Medicine
DX: M17.0 Bilateral primary osteoarthritis of knee (principal); N39.0 Urinary tract infection, site not specified; M25.562 Pain in left knee; M25.561 Pain in right knee; Z79.899 Other long term (current) drug therapy
CPT/HCPCS: 73560; 81001; 87086; 87088; 87186; 99284

== ENCOUNTER → 2022-02-12 16:26 | Outpatient (BNVA) | payer OTHER, SELFPAY | PROVIDERS: PCP Family Medicine; Visit Provider Anesthesiology | DX: M05.9 Rheumatoid arthritis with rheumatoid factor, unspecified (principal); M85.80 Other specified disorders of bone density and structure, unspecified site; M17.0 Bilateral primary osteoarthritis of knee; M54.9 Dorsalgia, unspecified; G90.523 Complex regional pain syndrome I of lower limb, bilateral | CPT/HCPCS: 99212 ==

== ENCOUNTER 2022-02-20 13:38 | Inpatient (IN) | payer OTHER, SELFPAY ==
--- NOTE | ~2022-02-20 | XR_ITS ---
EXAMINATION: XR KNEE, LEFT CLINICAL INFORMATION: Left knee pain. COMPARISON: None TECHNIQUE: Four views of the left knee. FINDINGS: Moderate tricompartmental degenerative joint changes are seen most pronounced in the medial femoral-tibial compartment. There is no acute fracture or dislocation. There is a moderate-sized suprapatellar joint effusion. The soft tissues are unremarkable. XR/XR knee LT 4V IMPRESSION: Moderate degenerative joint changes without acute fracture. Moderate suprapatellar joint effusion.
--- NOTE | ~2022-02-20 | MR_ITS ---
EXAMINATION: MR ABDOMEN WITHOUT AND WITH CONTRAST CLINICAL INFORMATION: Adrenal mass. COMPARISON: 02/21/2022 and 11/11/2018 TECHNIQUE: MR abdomen was performed without and with use of 7 mL intravenous Gadavist gadolinium contrast. Postcontrast images are performed in multiphase dynamic sequences. Imaging was performed in 3 planes. FINDINGS: LUNG BASES: No pleural or pericardial effusion. LIVER, GALLBLADDER, AND BILIARY TREE: The liver is normal in size and contour. No hepatic steatosis. No focal hepatic lesion. Mild intrahepatic biliary ductal dilatation is present. Common duct measures up to 12 mm at the richard hepatis and tapers smoothly to the head of pancreas. No intraductal filling defect. The gallbladder is surgically absent. PANCREAS: No ductal dilatation. SPLEEN: Not enlarged. ADRENAL GLANDS: Lobulated irregular 6.2 x 4.4 x 5.5 cm heterogeneously enhancing right adrenal mass. This mass extends/infiltrates into the retrocaval space, retroperitoneum and right pararenal space. There is contact with the posterior right hepatic lobe and superior aspect of the right kidney. The left adrenal gland is unremarkable. KIDNEYS AND URETERS: Symmetric in size and enhancement. No hydronephrosis or perinephric stranding. GASTROINTESTINAL TRACT: Imaged loops of small and large bowel are not obstructed. ABDOMINAL WALL: No significant hernia is appreciated. LYMPH NODES: Upper retroperitoneal lymph nodes measure 1.4 x 1.1 cm and 0.9 x 0.9 cm and 1.0 x 1.0 cm. An enhancing nodule in the anterior pararenal space measures 0.7 x 0.7 cm. VASCULAR: Normal caliber abdominal aorta. The IVC is displaced anteriorly by and inseparable from the right adrenal mass and likely invaded as well as potentially the right renal vein. MR/MR abdomen wo/w con IMPRESSION: Redemonstrated is a large lobulated heterogeneously enhancing right adrenal mass measures 6.2 x 4.4 x 5.5 cm not seen on the comparison study from 11/11/2018. This mass invades the superior aspect of the right kidney and posterior right hepatic lobe as well as the IVC and right renal vein. 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 This mass extends/infiltrates into the retrocaval space, retroperitoneum and the right pararenal space. An enhancing nodule in the anterior pararenal space measures 0.7 x 0.7 cm. There are enlarged upper retroperitoneal lymph nodes likely metastatic.
--- NOTE | ~2022-02-20 | CT_ITS ---
EXAMINATION: CT ABDOMEN AND PELVIS WITH CONTRAST CLINICAL INFORMATION: Right-sided pain. COMPARISON: Abdominal ultrasound 02/20/2022. MR abdomen 11/11/2018. TECHNIQUE: Multidetector volumetric images were obtained from the superior aspect of the liver through the pubic symphysis following administration 85 mL of Omnipaque 350 intravenous contrast. Sagittal and coronal reformatted images were obtained on the technologist's workstation. Oral contrast: No This CT examination was performed using dose optimization techniques as appropriate, variously including the following: *Automated exposure control *Adjustment of mA and/or kV according to patient size (this includes techniques or standardized protocols for targeted exams where dose is matched to indication/reason for exam; i.e. extremities or head) *Use of iterative reconstruction technique DLP: 474 mGy-cm FINDINGS: LUNG BASES: Subsegmental atelectasis. No focal consolidation or pleural effusion. LIVER, GALLBLADDER, AND BILIARY TREE: Stable intra and extrahepatic biliary ductal dilatation when compared to MR from 11/11/2018. No discrete focal liver lesion. Cholecystectomy. PANCREAS: Unremarkable. SPLEEN: Unremarkable. ADRENAL GLANDS: New approximately 6.2 x 4.6 x 5.3 cm mass in the region of the right adrenal gland with a large surface of contact with the liver and upper pole of the right kidney. The mass extends into the retrocaval space and retroperitoneum. The IVC is inseparable from this mass, likely invaded. Normal left adrenal gland. KIDNEYS AND URETERS: As above, abnormal invasion of the upper pole of the right kidney by a large suprarenal mass. Normal left kidney. BLADDER: Query mild diffuse wall thickening. No significant perivesical fat stranding. GASTROINTESTINAL TRACT: The stomach and the small bowel are nondilated. Normal retrocecal appendix (6:27). Questionable wall thickening of the rectosigmoid junction without significant pericolonic inflammatory changes. No evidence of bowel obstruction. ABDOMINAL WALL: No significant hernia is appreciated. LYMPH NODES: Enlarged left inguinal lymph node measuring 0.9 cm short axis (3:75). Enlarged periportal and upper retroperitoneal lymph nodes, for instance measuring 0.9 cm short axis on image 25, series 3. Prominent pelvic lymph nodes. Trace amount of ascites in the right paracolic gutter. There is a 1.1 cm soft tissue nodule in the anterior perirenal fat (3:38). VASCULAR: Abdominal aorta is of normal diameter with scattered atherosclerotic disease. PELVIC VISCERA: Calcifications in the uterus, likely related with fibroids. A small volume of free fluid. OSSEOUS STRUCTURES: No acute or aggressive appearing osseous abnormalities. Severe disc space narrowing with subchondral sclerosis and osteophytes at L3-L4. CT/CT abdomen pelvis w IV con IMPRESSION: There is a new 6.2 cm mass centered in the region of the right adrenal gland with invasion into the upper right kidney, IVC and a large surface of contact with the posterior right hepatic lobe. Findings are suspicious for an adrenal gland malignancy such as cortical carcinoma, less likely a tumor of renal origin. Periportal, upper retroperitoneal and perirenal metastatic soft tissue nodules/lymph nodes. Equivocal wall thickening of the rectosigmoid colon, suboptimally assessed due to underdistention. Recommend clinical correlation for mild diverticulitis or colitis, and if not recently obtained evaluation with a colonoscopy. Questionable urinary bladder wall thickening, correlation with urinalysis could be obtained. Small volume of ascites and free fluid in the pelvis, nonspecific, malignant nature is not excluded. This critical result was discussed with Dr. Guaman at 02/21/2022 3:02 AM and it was ascertained that the content and urgency of the report was understood at the time of direct communication.
--- NOTE | ~2022-02-20 | US_ITS ---
EXAMINATION: US ABDOMEN COMPLETE CLINICAL INFORMATION: Right upper quadrant and back pain. COMPARISON: Abdominal ultrasound 08/21/2018, MRI abdomen 11/11/2018 TECHNIQUE: Real-time imaging of the abdominal viscera. FINDINGS: PANCREAS: Normal. ABDOMINAL AORTA: The proximal, mid, and distal segments are normal in caliber. INFERIOR VENA CAVA: Visualized portions are normal. LIVER: Normal. The liver is normal in size. The liver contour is normal. Parenchymal echogenicity is normal. No focal hepatic lesion. Mild intrahepatic biliary ductal dilation GALLBLADDER: Status post cholecystectomy COMMON BILE DUCT: Mildly dilated measuring up to 1.2 cm in diameter. There is antegrade dilation, not significantly changed since MRI/MRCP 11/11/2018. RIGHT KIDNEY: Normal cortical echogenicity and thickness. There is a heterogeneously echogenic right suprarenal mass measuring approximately 4.1 x 5.8 x 6.1 cm in size with some internal vascularity. Question renal versus adrenal origin. Finding new since priors. Small 5 mm anechoic simple midpole cyst. The kidney measures 11.2 cm in maximum dimension. LEFT KIDNEY: Normal. No hydronephrosis. No renal calculi or focal parenchymal lesions. The kidney measures 10.8 cm in maximum dimension. SPLEEN: Normal. The spleen measures 12.5 cm in maximum dimension. FREE FLUID: None. US/US abdomen complete IMPRESSION: 1. Heterogeneously echogenic right suprarenal mass measuring approximately 4.1 x 5.8 x 6.1 cm in size. Question renal versus adrenal origin. Suggest initial further evaluation with contrast-enhanced CT. 2. Status post cholecystectomy. Mild intra and extrahepatic biliary ductal dilation, similar to MRI/MRCP 11/11/2018.
--- NOTE | ~2022-02-20 | XR_ITS ---
EXAMINATION: XR KNEE, RIGHT CLINICAL INFORMATION: Chronic knee pain COMPARISON: Right knee radiographs 02/04/2022 TECHNIQUE: Four views of the right knee. FINDINGS: Large joint effusion. No acute fracture or dislocation. Moderate medial and mild lateral compartment joint space narrowing with subchondral sclerosis, subchondral cystic change at the medial femoral condyle and tricompartmental osteophyte formation consistent with osteoarthritis, similar to prior. No osseous lesion. XR/XR knee RT 4V IMPRESSION: 1. Large joint effusion. No acute osseous injury identified. 2. Tricompartmental knee joint osteoarthritis, similar to prior.
--- NOTE | ~2022-02-20 | CT_ITS ---
EXAMINATION: CT CHEST WITH CONTRAST CLINICAL INFORMATION: Staging adrenal cancer. COMPARISON: CT of the abdomen and pelvis from earlier this month. TECHNIQUE: Multidetector volumetric CT imaging of the chest was obtained after the administration of 65 mL of Omnipaque 350 intravenous contrast without immediate adverse reactions. Axial MIP volume rendering provided. Sagittal and coronal reformatted images were obtained. This CT examination was performed using dose optimization techniques as appropriate, variously including the following: *Automated exposure control *Adjustment of mA and/or kV according to patient size (this includes techniques or standardized protocols for targeted exams where dose is matched to indication/reason for exam; i.e. extremities or head) *Use of iterative reconstruction technique DLP: 122 mGy-cm FINDINGS: LUNGS: The lungs are clear with no evidence of inflammation or nodules. MEDIASTINUM: The mediastinum is normal. PLEURA: There is no pleural effusion. No pleural mass or thickening. AXILLA: No lymphadenopathy. UPPER ABDOMEN: Right adrenal lesion similar to recent CT. Post cholecystectomy. Mild intra and extrahepatic biliary duct dilatation. OSSEOUS STRUCTURES: Degenerative changes of the spine. CT/CT chest w IV con IMPRESSION: Stable right adrenal lesion otherwise unremarkable examination. Fleischner guidelines were followed.
[2022-02-20 13:41] VITALS: BP 151/80; PULSE 72; RESP 18; TEMP 36.7; O2SAT 95; BMI 25.0
--- NOTE | 2022-02-20 13:43 | ED.GENADULT ---
HPI - General Adult General Chief complaint: Abdominal Pain <FREDO Cody - Last Filed: 02/23/22 13:06> Stated complaint: problem with legs back and waist pain <FREDO Cody - Last Filed: 02/23/22 13:06> Time Seen by Provider: 02/20/22 22:08 <FREDO Cody - Last Filed: 02/23/22 13:06> Related Data Home medications: Home Medications Medication Instructions Recorded Confirmed lorazepam 1 mg tablet 1 tab PO Q8H PRN Anxiety 02/21/22 02/21/22 prednisone 5 mg tablet 1 tab PO BID 02/21/22 02/21/22 sertraline 50 mg tablet 1 tab PO DAILY 02/21/22 02/21/22 Previous Rx's Medication Instructions Recorded cane #1 ea 08/18/21 diclofenac sodium 1 % topical gel 2 g topical QID PRN pain #100 grams 08/18/21 (Arthritis Pain (diclofenac)) alendronate 70 mg tablet 70 mg PO QWEEK #12 tabs 11/01/21 adalimumab 40 mg/0.4 mL See Rx Instructions subcut 11/09/21 subcutaneous pen kit (Humira(CF) .COMPLEX #2 ea Pen) celecoxib 200 mg capsule 200 mg PO BID PRN pain 30 days #60 01/03/22 caps mirtazapine 15 mg tablet 15 mg PO DAILY 30 days #30 tabs 01/11/22 gabapentin 600 mg tablet 600 mg PO DAILY 30 days #30 tabs 01/30/22 oxycodone 5 mg tablet 5 mg PO Q6H PRN pain #20 tabs 02/04/22 oxycodone 5 mg tablet 5 mg PO Q6H PRN pain (scale score 02/22/22 7-10) #20 tabs <FREDO Cody - Last Filed: 02/23/22 13:06> Allergies/adverse reactions: Allergies Allergy/AdvReac Type Severity Reaction Status Date / Time buprenorphine [Belbuca] Allergy Intermediate nausea Verified 02/12/22 16:38 <FREDO Cody - Last Filed: 02/23/22 13:06> PMF Past Medical History Medical History: Medical History Back pain Cervical cancer Opiate abuse, episodic Osteoarthritis of both knees Osteopenia determined by x-ray Primary osteoarthritis of knees, bilateral Seropositive rheumatoid arthritis <FREDO Cody - Last Filed: 02/23/22 13:06> Surgical History: Surgical History History of appendectomy History of cholecystectomy History of D&C History of tonsillectomy <FREDO Cody - Last Filed: 02/23/22 13:06> Family History Family History: Family History Father Acute CVA (cerebrovascular accident) Mother Hypertension Hypercholesterolemia Brother Liver transplant status Family history of thyroid problem <FERDO Cody - Last Filed: 02/23/22 13:06> Social History Social History: Social History Household Members: Family Housing: House Do you presently have visiting nurse or other home services: No Alcohol intake: never Patient Tobacco Use Status: Former Tobacco user Quit Date: 2016 Tobacco use type: Cigarette e-Cigarette/Vaping Use: Never Used Second Hand Smoke Exposure: No service: No Current occupational status: employed and 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 Cognitive needs: No Hearing needs: No Vision needs: Yes <FREDO Cody - Last Filed: 02/23/22 13:06> Physical Exam ED Vital Signs: Vital Signs - 24 hr 02/20/22 13:41 02/20/22 22:08 02/21/22 00:04 Temperature 98.0 F 96.8 F 98.1 F Pulse Rate 72 69 65 Respiratory Rate 18 18 17 Blood Pressure 151/80 H 143/73 H 144/83 H Pulse Oximetry 95 98 97 Oxygen Delivery Method Room Air Room Air Room Air 02/21/22 02:03 02/21/22 03:56 Temperature 98.7 F 98.1 F Pulse Rate 74 64 Respiratory Rate 17 18 Blood Pressure 145/82 H 147/87 H Pulse Oximetry 96 97 Oxygen Delivery Method Room Air Room Air BMI result Body Mass Index 25.0 <FREDO Cody Last Filed: 02/23/22 13:06> Vital Signs - 24 hr 02/20/22 13:41 02/20/22 22:08 02/21/22 00:04 Temperature 98.0 F 96.8 F 98.1 F Pulse Rate 72 69 65 Respiratory Rate 18 18 17 Blood Pressure 151/80 H 143/73 H 144/83 H Pulse Oximetry 95 98 97 Oxygen Delivery Method Room Air Room Air Room Air 02/21/22 02:03 02/21/22 03:56 Temperature 98.7 F 98.1 F Pulse Rate 74 64 Respiratory Rate 17 18 Blood Pressure 145/82 H 147/87 H Pulse Oximetry 96 97 Oxygen Delivery Method Room Air Room Air BMI result Body Mass Index 25.0 <Kev Guaman MD - Last Filed: 02/22/22 06:36> Course Course Course Narrative: 13:45pm - 66yoF presenting to the ED c c/o of 3 weeks of right mid back/RUQ/Right Flank pain. Was taken off oxycodone recently by PCP. Was on the oxycodone for rheumatoid arthritis. Was switched to tramadol and was upset about this and switched her PCP. Denies alcohol usage quit 8 years ago. Has been taking NSAIDS and tylenol no symptomatic relief. Also reports chronic knee pain. Denies any other symptoms complaints or concerns at this time. On exam she is alert and oriented x3. Not in any acute distress. Vital signs are stable within normal limits. Normal steady gait with cane. Plan: Labs, UA, abdominal ultrasound, bilateral knee x-ray. Patient is stable she will be sent back to the waiting room for further evaluation treatment to the main ER. <FREDO Cody - Last Filed: 02/23/22 13:06> 13:45pm - 66yoF presenting to the ED c c/o of 3 weeks of right mid back/RUQ/Right Flank pain. Was taken off oxycodone recently by PCP. Was on the oxycodone for rheumatoid arthritis. Was switched to tramadol and was upset about this and switched her PCP. Denies alcohol usage quit 8 years ago. Has been taking NSAIDS and tylenol no symptomatic relief. Also reports chronic knee pain. Denies any other symptoms complaints or concerns at this time. On exam she is alert and oriented x3. Not in any acute distress. Vital signs are stable within normal limits. Normal steady gait with cane. Plan: Labs, UA, abdominal ultrasound, bilateral knee x-ray. Patient is stable she will be sent back to the waiting room for further evaluation treatment to the main ER. <Kev Guaman MD - Last Filed: 02/22/22 06:36> Medications Administered Discontinued Medications Generic Name Dose Route Start Last Admin Trade Name Freq PRN Reason Stop Dose Admin Gabapentin 600 mg 02/21/22 13:30 02/22/22 07:11 Gabapentin 600 Mg Tablet PO 600 mg DAILY LUIS M Administration Gadobutrol 7.5 ml 02/22/22 12:24 02/22/22 12:25 Gadobutrol 7.5 Ml Vial IVPUSH 02/22/22 12:25 7 ml ONCE ONE Administration Heparin Sodium (Porcine) 5,000 unit 02/21/22 09:15 02/21/22 09:26 Heparin Sodium,Porcine 5,000 Unit/Ml Vial SUBCUT 5,000 unit Q12H LUIS M Administration Hydromorphone HCl 0.5 mg 02/21/22 09:08 02/22/22 12:38 Hydromorphone Hcl 1 Mg/Ml Syringe IVPUSH 0.5 mg Q4H PRN Administration Pain, Severe (Pain Scale 7-10) Protocol Iohexol 100 ml 02/21/22 01:23 02/21/22 01:23 Iohexol 350 Mg/Ml 100 Ml Infus..Btl IV 02/21/22 01:24 85 ml ONCE ONE Administration Iohexol 65 ml 02/22/22 11:26 02/22/22 11:27 Iohexol 350 Mg/Ml 100 Ml Infus..Btl IV 02/22/22 11:27 65 ml ONCE ONE Administration Lorazepam 1 mg 02/21/22 13:27 02/22/22 16:28 Lorazepam 1 Mg Tablet PO 1 mg Q8H PRN Administration Anxiety Melatonin 6 mg 02/21/22 09:08 02/21/22 20:04 Melatonin 3 Mg Tablet PO 6 mg BEDTIME PRN Administration Insomnia Mirtazapine 15 mg 02/21/22 13:30 02/22/22 07:22 Mirtazapine 15 Mg Tablet PO Not Given DAILY LUIS M Oxycodone HCl 5 mg 02/20/22 23:42 02/21/22 00:56 Oxycodone Hcl Immed Release 5 Mg Tablet PO 02/20/22 23:43 5 mg ONCE ONE Administration Oxycodone HCl 5 mg 02/21/22 07:55 02/21/22 08:00 Oxycodone Hcl Immed Release 5 Mg Tablet PO 02/21/22 07:56 5 mg ONCE STA Administration Prednisone 5 mg 02/21/22 13:30 02/22/22 07:11 Prednisone 5 Mg Tablet PO Not Given BID LUIS M Sertraline HCl 50 mg 02/21/22 13:30 02/22/22 07:21 Sertraline Hcl 50 Mg Tablet PO Not Given DAILY LUIS M Sodium Chloride 3 ml 02/21/22 16:00 02/22/22 14:59 0.9 % Sodium Chloride Flush 3 Ml Syringe IVFLUSH Not Given QSHIFT [facility] <FREDO Cody - Last Filed: 02/23/22 13:06> Medications Administered Discontinued Medications Generic Name Dose Route Start Last Admin Trade Name Freq PRN Reason Stop Dose Admin Gabapentin 600 mg 02/21/22 13:30 02/22/22 07:11 Gabapentin 600 Mg Tablet PO 600 mg DAILY LUIS M Administration Gadobutrol 7.5 ml 02/22/22 12:24 02/22/22 12:25 Gadobutrol 7.5 Ml Vial IVPUSH 02/22/22 12:25 7 ml ONCE ONE Administration Heparin Sodium (Porcine) 5,000 unit 02/21/22 09:15 02/21/22 09:26 Heparin Sodium,Porcine 5,000 Unit/Ml Vial SUBCUT 5,000 unit Q12H LUIS M Administration Hydromorphone HCl 0.5 mg 02/21/22 09:08 02/22/22 12:38 Hydromorphone Hcl 1 Mg/Ml Syringe IVPUSH 0.5 mg Q4H PRN Administration Pain, Severe (Pain Scale 7-10) Protocol Iohexol 100 ml 02/21/22 01:23 02/21/22 01:23 Iohexol 350 Mg/Ml 100 Ml Infus..Btl IV 02/21/22 01:24 85 ml ONCE ONE Administration Iohexol 65 ml 02/22/22 11:26 02/22/22 11:27 Iohexol 350 Mg/Ml 100 Ml Infus..Btl IV 02/22/22 11:27 65 ml ONCE ONE Administration Lorazepam 1 mg 02/21/22 13:27 02/22/22 16:28 Lorazepam 1 Mg Tablet PO 1 mg Q8H PRN Administration Anxiety Melatonin 6 mg 02/21/22 09:08 02/21/22 20:04 Melatonin 3 Mg Tablet PO 6 mg BEDTIME PRN Administration Insomnia Mirtazapine 15 mg 02/21/22 13:30 02/22/22 07:22 Mirtazapine 15 Mg Tablet PO Not Given DAILY LUIS M Oxycodone HCl 5 mg 02/20/22 23:42 02/21/22 00:56 Oxycodone Hcl Immed Release 5 Mg Tablet PO 02/20/22 23:43 5 mg ONCE ONE Administration Oxycodone HCl 5 mg 02/21/22 07:55 02/21/22 08:00 Oxycodone Hcl Immed Release 5 Mg Tablet PO 02/21/22 07:56 5 mg ONCE STA Administration Prednisone 5 mg 02/21/22 13:30 02/22/22 07:11 Prednisone 5 Mg Tablet PO Not Given BID LUIS M Sertraline HCl 50 mg 02/21/22 13:30 02/22/22 07:21 Sertraline Hcl 50 Mg Tablet PO Not Given DAILY LUIS M Sodium Chloride 3 ml 02/21/22 16:00 02/22/22 14:59 0.9 % Sodium Chloride Flush 3 Ml Syringe IVFLUSH Not Given QSHIFT LUIS M <Kev Guaman MD - Last Filed: 02/22/22 06:36> Medical Decision Making Lab Data Result Diagrams: : 02/20/22 13:57 02/20/22 13:57 <FREDO Cody - Last Filed: 02/23/22 13:06> Labs: Lab Results 02/20/22 02/20/22 02/20/22 Range/Units 13:57 13:57 13:57 WBC 6.6 (4.8-10.8) X10*3/uL RBC 4.04 L (4.20-5.50) X10*6/uL Hgb 10.5 L (12.0-16.0) g/dl Hct 33.4 L (37.0-47.0) % MCV 82.7 (80.0-98.0) fL MCH 26.0 L (27.0-33.0) pg MCHC 31.4 (31.0-35.0) g/dl RDW 14.5 (11.0-16.0) % Plt Count 377 (160-400) X10*3/uL MPV 9.7 (9.4-12.3) fL Immature Gran % (Auto) 0.3 (0.0-0.4) % Neut % (Auto) 68.9 (45-73) % Lymph % (Auto) 20.7 (20-40) % [place] % (Auto) 7.0 (2-11) % Eos % (Auto) 2.3 (0-4) % Baso % (Auto) 0.8 (0-2) % Lymph # (Auto) 1.4 (1.2-4.9) X10*3/uL [place] # (Auto) 0.5 (0.1-1.2) X10*3/uL Eos # (Auto) 0.2 (0.0-0.4) X10*3/uL Baso # (Auto) 0.1 (0.0-0.2) X10*3/uL Abs Immat Gran (auto) 0.02 (0.00-0.03) X10*3/uL Absolute Neuts (auto) 4.5 (2.0-8.3) x10*3/uL Absolute Nucleated RBC 0.000 (0.0-0.012) X10*3/uL Nucleated RBC % (auto) 0.0 (0.0-0.2) /100WBC PT 11.5 (10.0-13.1) SEC INR 1.0 (0.9-1.1) Sodium 139 (135-145) mmol/L Potassium 3.9 (3.3-5.1) mmol/L Chloride 106 (96-108) mmol/L Carbon Dioxide 26 (22-29) mmol/L Anion Gap 11 L (12-20) BUN 12 (9-16) mg/dL Creatinine 0.75 (0.5-1.4) mg/dL Estim Creat Clear Calc 68.2 Estimated GFR > 60 Random Glucose 104 (60-115) mg/dL Calcium 8.9 (8.4-10.2) mg/dL Magnesium 1.9 (1.6-2.6) mg/dL Total Bilirubin 0.3 (0.0-1.0) mg/dL AST 20 (5-31) U/L ALT 9 (0-31) U/L Alkaline Phosphatase 102 (39-117) U/L Total Protein 6.9 (6.5-8.0) g/dL Albumin 3.9 (3.5-5.0) g/dL Lipase 29 (8-78) U/L Urine Color Urine Appearance Urine pH (5.0-9.0) Ur Specific [place] (1.005-1.025) Urine Protein (Neg-Trace) mg/dL Urine Glucose (UA) (Negative) mg/dL Urine Ketones (Negative) mg/dL Urine Blood (Negative) Urine Nitrite (Negative) Ur Leukocyte Esterase (Negative) Ethyl Alcohol < 10 mg/dL COVID-19 ([facility]) (Negative) COVID-19 Clin Com 02/20/22 02/21/22 Range/Units 23:16 06:13 WBC (4.8-10.8) X10*3/uL RBC (4.20-5.50) X10*6/uL Hgb (12.0-16.0) g/dl Hct (37.0-47.0) % MCV (80.0-98.0) fL MCH (27.0-33.0) pg MCHC (31.0-35.0) g/dl RDW (11.0-16.0) % Plt Count (160-400) X10*3/uL MPV (9.4-12.3) fL Immature Gran % (Auto) (0.0-0.4) % Neut % (Auto) (45-73) % Lymph % (Auto) (20-40) % [place] % (Auto) (2-11) % Eos % (Auto) (0-4) % Baso % (Auto) (0-2) % Lymph # (Auto) (1.2-4.9) X10*3/uL [place] # (Auto) (0.1-1.2) X10*3/uL Eos # (Auto) (0.0-0.4) X10*3/uL Baso # (Auto) (0.0-0.2) X10*3/uL Abs Immat Gran (auto) (0.00-0.03) X10*3/uL Absolute Neuts (auto) (2.0-8.3) x10*3/uL Absolute Nucleated RBC (0.0-0.012) X10*3/uL Nucleated RBC % (auto) (0.0-0.2) /100WBC PT (10.0-13.1) SEC INR (0.9-1.1) Sodium (135-145) mmol/L Potassium (3.3-5.1) mmol/L Chloride (96-108) mmol/L Carbon Dioxide (22-29) mmol/L Anion Gap (12-20) BUN (9-16) mg/dL Creatinine (0.5-1.4) mg/dL Estim Creat Clear Calc Estimated GFR Random Glucose (60-115) mg/dL Calcium (8.4-10.2) mg/dL Magnesium (1.6-2.6) mg/dL Total Bilirubin (0.0-1.0) mg/dL AST (5-31) U/L ALT (0-31) U/L Alkaline Phosphatase (39-117) U/L Total Protein (6.5-8.0) g/dL Albumin (3.5-5.0) g/dL Lipase (8-78) U/L Urine Color Yellow Urine Appearance Clear Urine pH 5.5 (5.0-9.0) Ur Specific [place] 1.010 (1.005-1.025) Urine Protein Negative (Neg-Trace) mg/dL Urine Glucose (UA) Negative (Negative) mg/dL Urine Ketones Negative (Negative) mg/dL Urine Blood Negative (Negative) Urine Nitrite Negative (Negative) Ur Leukocyte Esterase Negative (Negative) Ethyl Alcohol mg/dL COVID-19 ([facility]) Negative (Negative) COVID-19 Clin Com See Note <FREDO Cody - Last Filed: 02/23/22 13:06> Lab Results 02/20/22 02/20/22 02/20/22 Range/Units 13:57 13:57 13:57 WBC 6.6 (4.8-10.8) X10*3/uL RBC 4.04 L (4.20-5.50) X10*6/uL Hgb 10.5 L (12.0-16.0) g/dl Hct 33.4 L (37.0-47.0) % MCV 82.7 (80.0-98.0) fL MCH 26.0 L (27.0-33.0) pg MCHC 31.4 (31.0-35.0) g/dl RDW 14.5 (11.0-16.0) % Plt Count 377 (160-400) X10*3/uL MPV 9.7 (9.4-12.3) fL Immature Gran % (Auto) 0.3 (0.0-0.4) % Neut % (Auto) 68.9 (45-73) % Lymph % (Auto) 20.7 (20-40) % [place] % (Auto) 7.0 (2-11) % Eos % (Auto) 2.3 (0-4) % Baso % (Auto) 0.8 (0-2) % Lymph # (Auto) 1.4 (1.2-4.9) X10*3/uL [place] # (Auto) 0.5 (0.1-1.2) X10*3/uL Eos # (Auto) 0.2 (0.0-0.4) X10*3/uL Baso # (Auto) 0.1 (0.0-0.2) X10*3/uL Abs Immat Gran (auto) 0.02 (0.00-0.03) X10*3/uL Absolute Neuts (auto) 4.5 (2.0-8.3) x10*3/uL Absolute Nucleated RBC 0.000 (0.0-0.012) X10*3/uL Nucleated RBC % (auto) 0.0 (0.0-0.2) /100WBC PT 11.5 (10.0-13.1) SEC INR 1.0 (0.9-1.1) Sodium 139 (135-145) mmol/L Potassium 3.9 (3.3-5.1) mmol/L Chloride 106 (96-108) mmol/L Carbon Dioxide 26 (22-29) mmol/L Anion Gap 11 L (12-20) BUN 12 (9-16) mg/dL Creatinine 0.75 (0.5-1.4) mg/dL Estim Creat Clear Calc 68.2 Estimated GFR > 60 Random Glucose 104 (60-115) mg/dL Calcium 8.9 (8.4-10.2) mg/dL Magnesium 1.9 (1.6-2.6) mg/dL Total Bilirubin 0.3 (0.0-1.0) mg/dL AST 20 (5-31) U/L ALT 9 (0-31) U/L Alkaline Phosphatase 102 (39-117) U/L Total Protein 6.9 (6.5-8.0) g/dL Albumin 3.9 (3.5-5.0) g/dL Lipase 29 (8-78) U/L Urine Color Urine Appearance Urine pH (5.0-9.0) Ur Specific [place] (1.005-1.025) Urine Protein (Neg-Trace) mg/dL Urine Glucose (UA) (Negative) mg/dL Urine Ketones (Negative) mg/dL Urine Blood (Negative) Urine Nitrite (Negative) Ur Leukocyte Esterase (Negative) Ethyl Alcohol < 10 mg/dL COVID-19 ([facility]) (Negative) COVID-19 Clin Com 02/20/22 02/21/22 Range/Units 23:16 06:13 WBC (4.8-10.8) X10*3/uL RBC (4.20-5.50) X10*6/uL Hgb (12.0-16.0) g/dl Hct (37.0-47.0) % MCV (80.0-98.0) fL MCH (27.0-33.0) pg MCHC (31.0-35.0) g/dl RDW (11.0-16.0) % Plt Count (160-400) X10*3/uL MPV (9.4-12.3) fL Immature Gran % (Auto) (0.0-0.4) % Neut % (Auto) (45-73) % Lymph % (Auto) (20-40) % [place] % (Auto) (2-11) % Eos % (Auto) (0-4) % Baso % (Auto) (0-2) % Lymph # (Auto) (1.2-4.9) X10*3/uL [place] # (Auto) (0.1-1.2) X10*3/uL Eos # (Auto) (0.0-0.4) X10*3/uL Baso # (Auto) (0.0-0.2) X10*3/uL Abs Immat Gran (auto) (0.00-0.03) X10*3/uL Absolute Neuts (auto) (2.0-8.3) x10*3/uL Absolute Nucleated RBC (0.0-0.012) X10*3/uL Nucleated RBC % (auto) (0.0-0.2) /100WBC PT (10.0-13.1) SEC INR (0.9-1.1) Sodium (135-145) mmol/L Potassium (3.3-5.1) mmol/L Chloride (96-108) mmol/L Carbon Dioxide (22-29) mmol/L Anion Gap (12-20) BUN (9-16) mg/dL Creatinine (0.5-1.4) mg/dL Estim Creat Clear Calc Estimated GFR Random Glucose (60-115) mg/dL Calcium (8.4-10.2) mg/dL Magnesium (1.6-2.6) mg/dL Total Bilirubin (0.0-1.0) mg/dL AST (5-31) U/L ALT (0-31) U/L Alkaline Phosphatase (39-117) U/L Total Protein (6.5-8.0) g/dL Albumin (3.5-5.0) g/dL Lipase (8-78) U/L Urine Color Yellow Urine Appearance Clear Urine pH 5.5 (5.0-9.0) Ur Specific [place] 1.010 (1.005-1.025) Urine Protein Negative (Neg-Trace) mg/dL Urine Glucose (UA) Negative (Negative) mg/dL Urine Ketones Negative (Negative) mg/dL Urine Blood Negative (Negative) Urine Nitrite Negative (Negative) Ur Leukocyte Esterase Negative (Negative) Ethyl Alcohol mg/dL COVID-19 ([facility]) Negative (Negative) COVID-19 Clin Com See Note <Kev Guaman MD - Last Filed: 02/22/22 06:36> Discharge Plan Discharge Clinical Impression: Abdominal mass, RUQ (right upper quadrant) <FREDO Cody - Last Filed: 02/23/22 13:06> Patient Disposition: Admitted As Inpatient <FREDO Cody - Last Filed: 02/23/22 13:06> Interventions: Admission Worksheet (ED) Last Done: 02/21/22 19:35 <FREDO Cody - Last Filed: 02/23/22 13:06> Discharge Date/Time: 02/21/22 19:42 <FREDO Cody - Last Filed: 02/23/22 13:06>
[2022-02-20 14:03] LABS: MANUAL DIFF FLAG NO
[2022-02-20 14:25] LABS: Basophils Absolute Auto 0.1 X10*3/uL (0.0-0.2); Basophils Percent Auto 0.8 % (0-2); Eosinophils Absolute Auto 0.2 X10*3/uL (0.0-0.4); Eosinophils Percent Auto 2.3 % (0-4); Hematocrit 33.4 % (37.0-47.0); Hemoglobin 10.5 g/dl (12.0-16.0); Imm Gran Abs Auto 0.02 X10*3/uL (0.00-0.03); Imm Gran Pct Auto 0.3 % (0.0-0.4); Lymphocytes Absolute Auto 1.4 X10*3/uL (1.2-4.9); Lymphocytes Percent Auto 20.7 % (20-40); Mean Corpuscular HGB Conc 31.4 g/dl (31.0-35.0); Mean Corpuscular Volume 82.7 fL (80.0-98.0); Mean Platelet Volume 9.7 fL (9.4-12.3); Monocytes Absolute Auto 0.5 X10*3/uL (0.1-1.2); Neutrophils Absolute Auto 4.5 x10*3/uL (2.0-8.3); Neutrophils Percent Auto 68.9 % (45-73); Platelet Count 377 X10*3/uL (160-400); Red Blood Count 4.04 X10*6/uL (4.20-5.50); Red Cell Distribution Width 14.5 % (11.0-16.0); White Blood Count 6.6 X10*3/uL (4.8-10.8)
[2022-02-20 14:37] LABS: Prothrombin Time 11.5 SEC (10.0-13.1)
[2022-02-20 14:59] LABS: Alanine Aminotransferase 9 U/L (0-31); Albumin Level 3.9 g/dL (3.5-5.0); Alkaline Phosphatase 102 U/L (39-117); Anion Gap 11 (12-20); Aspartate Amino Transferase 20 U/L (5-31); Bilirubin Total 0.3 mg/dL (0.0-1.0); Blood Urea Nitrogen 12 mg/dL (9-16); Calcium 8.9 mg/dL (8.4-10.2); Carbon Dioxide 26 mmol/L (22-29); Chloride 106 mmol/L (96-108); Creatinine Clr Calc Pharmacy 68.2; Estimated Glomerular Filt Rate > 60; Ethanol < 10 mg/dL; Glucose Random 104 mg/dL (60-115); Lipase 29 U/L (8-78); Magnesium 1.9 mg/dL (1.6-2.6); Potassium 3.9 mmol/L (3.3-5.1); Sodium 139 mmol/L (135-145); Total Protein 6.9 g/dL (6.5-8.0)
[2022-02-20 22:08] VITALS: BP 143/73; PULSE 69; RESP 18; TEMP 36; O2SAT 98
[2022-02-20 23:22] LABS: Appearance Urine Clear; Color Urine Yellow; Glucose Urine UA Negative (Negative); Leukocyte Esterase Urine Negative (Negative); Nitrite Urine Negative (Negative); PH 5.5 (5.0-9.0); Urine Blood Negative (Negative); Urine Ketones Negative (Negative); Urine Protein Negative (Neg-Trace)
--- NOTE | 2022-02-20 23:43 | ED_ITS ---
HPI - Abdominal Pain General Chief Complaint: Abdominal Pain <Yo Moeller MD - Last Filed: 02/20/22 23:50> Stated Complaint: problem with legs back and waist pain <Yo Moeller MD - Last Filed: 02/20/22 23:50> Time Seen by Provider: 02/20/22 22:08 <Yo Moeller MD - Last Filed: 02/20/22 23:50> Source: patient and old records reviewed <Yo Moeller MD - Last Filed: 02/20/22 23:50> History of Present Illness HPI narrative: Patient presents complaining primarily of right-sided abdominal pain which radiates to her flank. It has been present for approximately 3 weeks and getting worse. No nausea vomiting or diarrhea. Some incontinence of urine which is baseline but worse recently. She has recently been treating for urinary tract infection within the last week. She denies dysuria or hematuria at this time. No fevers or chills. No prior history of kidney stones. Prior surgical history significant for cholecystectomy in her 30s and appendectomy as a child. She has a secondary complaint of chronic knee pain. She is requesting pain medication for this. She sees pain management but is no longer in their opioid program due to prior issues with overuse. She has seen Ortho for the chronic knee pain but is apparently not an operative candidate. She is also not a candidate for steroid injections secondary to long-term rheumatoid arthritis. <Yo Moleler MD - Last Filed: 02/20/22 23:50> Related Data Home Medications: Home Medications Medication Instructions Recorded Confirmed lorazepam 1 mg tablet 1 tab PO Q8H PRN Anxiety 02/21/22 02/21/22 prednisone 5 mg tablet 1 tab PO BID 02/21/22 02/21/22 sertraline 50 mg tablet 1 tab PO DAILY 02/21/22 02/21/22 Previous Rx's Medication Instructions Recorded cane #1 ea 08/18/21 diclofenac sodium 1 % topical gel 2 g topical QID PRN pain #100 grams 08/18/21 (Arthritis Pain (diclofenac)) alendronate 70 mg tablet 70 mg PO QWEEK #12 tabs 11/01/21 adalimumab 40 mg/0.4 mL See Rx Instructions subcut 11/09/21 subcutaneous pen kit (Humira(CF) .COMPLEX #2 ea Pen) celecoxib 200 mg capsule 200 mg PO BID PRN pain 30 days #60 01/03/22 caps mirtazapine 15 mg tablet 15 mg PO DAILY 30 days #30 tabs 01/11/22 gabapentin 600 mg tablet 600 mg PO DAILY 30 days #30 tabs 01/30/22 oxycodone 5 mg tablet 5 mg PO Q6H PRN pain #20 tabs 02/04/22 <Yo Moeller MD - Last Filed: 02/20/22 23:50> Allergies/Adverse Reactions: Allergies Allergy/AdvReac Type Severity Reaction Status Date / Time buprenorphine [Belbuca] Allergy Intermediate nausea Verified 02/12/22 16:38 <Yo Moeller MD - Last Filed: 02/20/22 23:50> Review of Systems Comments: No fevers or chills <Yo Moeller MD - Last Filed: 02/20/22 23:50> Comments: No chest pain or palpitation <Yo Moeller MD - Last Filed: 02/20/22 23:50> Comments: No cough or shortness of breath <Yo Moeller MD - Last Filed: 02/20/22 23:50> Comments: Abdominal pain is described <Yo Moeller MD - Last Filed: 02/20/22 23:50> Comments: Incontinence and recent UTIs described <Yo Moeller MD - Last Filed: 02/20/22 23:50> Comments: Chronic bilateral knee pain <Yo Moeller MD - Last Filed: 02/20/22 23:50> Comments: No skin changes <Yo Moeller MD - Last Filed: 02/20/22 23:50> Comments: No focal weakness <Yo Moeller MD - Last Filed: 02/20/22 23:50> PMFSH Past Medical History Medical History: Medical History (Updated 02/21/22 @ 09:00 by Sinan Cesar MD) Back pain Cervical cancer Opiate abuse, episodic Osteoarthritis of both knees Osteopenia determined by x-ray Primary osteoarthritis of knees, bilateral Seropositive rheumatoid arthritis <Yo Moeller MD - Last Filed: 02/20/22 23:50> Surgical History: Surgical History History of appendectomy History of cholecystectomy History of D&C History of tonsillectomy <Yo Moeller MD - Last Filed: 02/20/22 23:50> Family History Family History: Family History Father Acute CVA (cerebrovascular accident) Mother Hypertension Hypercholesterolemia Brother Liver transplant status Family history of thyroid problem <Yo Moeller MD - Last Filed: 02/20/22 23:50> Social History Social History: Social History Housing: House Alcohol intake: never Patient Tobacco Use Status: Former Tobacco user e-Cigarette/Vaping Use: Never Used Second Hand Smoke Exposure: No Use of substances other than those prescribed or required for medical reasons: No Advance Directives: No service: No Current occupational status: employed and 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 Cognitive needs: No Hearing needs: No Vision needs: Yes <Yo Moeller MD - Last Filed: 02/20/22 23:50> Physical Exam ED Vital Signs: Vital Signs - 24 hr 02/20/22 13:41 02/20/22 22:08 02/21/22 00:04 Temperature 98.0 F 96.8 F 98.1 F Pulse Rate 72 69 65 Respiratory Rate 18 18 17 Blood Pressure 151/80 H 143/73 H 144/83 H Pulse Oximetry 95 98 97 Oxygen Delivery Method Room Air Room Air Room Air 02/21/22 02:03 02/21/22 03:56 02/21/22 06:29 Temperature 98.7 F 98.1 F Pulse Rate 74 64 64 Respiratory Rate 17 18 16 Blood Pressure 145/82 H 147/87 H 143/87 H Pulse Oximetry 96 97 97 Oxygen Delivery Method Room Air Room Air Room Air BMI result Body Mass Index 25.0 <Yo Moeller MD - Last Filed: 02/20/22 23:50> Vital Signs - 24 hr 02/20/22 13:41 02/20/22 22:08 02/21/22 00:04 Temperature 98.0 F 96.8 F 98.1 F Pulse Rate 72 69 65 Respiratory Rate 18 18 17 Blood Pressure 151/80 H 143/73 H 144/83 H Pulse Oximetry 95 98 97 Oxygen Delivery Method Room Air Room Air Room Air 02/21/22 02:03 02/21/22 03:56 02/21/22 06:29 Temperature 98.7 F 98.1 F Pulse Rate 74 64 64 Respiratory Rate 17 18 16 Blood Pressure 145/82 H 147/87 H 143/87 H Pulse Oximetry 96 97 97 Oxygen Delivery Method Room Air Room Air Room Air BMI result Body Mass Index 25.0 <Kev Guaman MD - Last Filed: 02/21/22 09:51> Const Other: Awake alert in no acute distress <Yo Moellre MD - Last Filed: 02/20/22 23:50> Resp Other: Clear and equal bilaterally without wheezes rales or rhonchi <Yo Moeller MD - Last Filed: 02/20/22 23:50> Cardio Other: Regular rate and rhythm without murmurs rubs or gallops <Yo Moeller MD - Last Filed: 02/20/22 23:50> GI Other: Soft. Mild right upper quadrant tenderness without guarding or rebound. Mild right flank tenderness. No lower abdominal tenderness No distension. Normal bowel sounds. <Yo Moeller MD - Last Filed: 02/20/22 23:50> Skin Other: Warm pink and dry without rash <Yo Moeller MD - Last Filed: 02/20/22 23:50> Neuro Other: Nonfocal neuro exam <Yo Moeller MD - Last Filed: 02/20/22 23:50> Course Course Course Narrative: Abdominal pain in a patient with a prior cholecystectomy in the distant past. Kidney stone Pyelonephritis Colitis Chronic bilateral knee pain. Lab work is unremarkable. Urinalysis shows no obvious urinary tract infection Ultrasound done prior to my evaluation shows a renal or perirenal mass. CT scan ordered. <Yo Moeller MD - Last Filed: 02/20/22 23:50> Abdominal pain in a patient with a prior cholecystectomy in the distant past. Kidney stone Pyelonephritis Colitis Chronic bilateral knee pain. Lab work is unremarkable. Urinalysis shows no obvious urinary tract infection Ultrasound done prior to my evaluation shows a renal or perirenal mass. CT scan ordered. 0316: I assumed care of this patient from my colleague, Dr. Moeller at 02:00 hours. The patient presented to the emergency department for evaluation right upper quadrant pain x3 weeks. Patient was noted to have a mass of the renal or aranza renal area. CT scan of the abdomen pelvis allergy reading as follows: IMPRESSION: There is a new 6.2 cm mass centered in the region of the right adrenal gland with invasion into the upper right kidney, IVC and a large surface of contact with the posterior right hepatic lobe. Findings are suspicious for an adrenal gland malignancy such as cortical carcinoma, less likely a tumor of renal origin. Periportal, upper retroperitoneal and perirenal metastatic soft tissue nodules/lymph nodes. Equivocal wall thickening of the rectosigmoid colon, suboptimally assessed due to underdistention. Recommend clinical correlation for mild diverticulitis or colitis, and if not recently obtained evaluation with a colonoscopy. Questionable urinary bladder wall thickening, correlation with urinalysis could be obtained. Small volume of ascites and free fluid in the pelvis, nonspecific, malignant nature is not excluded. This critical result was discussed with Dr. Guaman at 02/21/2022 3:02 AM and it was ascertained that the content and urgency of the report was understood at the time of direct communication. Dictated By:Trixie PersaudSigned By:<Electronically signed by Trixie Persaud in [place]>02/21/22 0308 Given the extent of this mass in the possibility of malignancy, I will discuss admission with the covering hospitalist. <Kev Guaman MD - Last Filed: 02/21/22 09:51> Medical Decision Making Lab Data Result Diagrams: : 02/20/22 13:57 02/20/22 13:57 <Yo Moeller MD - Last Filed: 02/20/22 23:50> Labs: Lab Results 02/20/22 02/20/22 02/20/22 Range/Units 13:57 13:57 13:57 WBC 6.6 (4.8-10.8) X10*3/uL RBC 4.04 L (4.20-5.50) X10*6/uL Hgb 10.5 L (12.0-16.0) g/dl Hct 33.4 L (37.0-47.0) % MCV 82.7 (80.0-98.0) fL MCH 26.0 L (27.0-33.0) pg MCHC 31.4 (31.0-35.0) g/dl RDW 14.5 (11.0-16.0) % Plt Count 377 (160-400) X10*3/uL MPV 9.7 (9.4-12.3) fL Immature Gran % (Auto) 0.3 (0.0-0.4) % Neut % (Auto) 68.9 (45-73) % Lymph % (Auto) 20.7 (20-40) % [place] % (Auto) 7.0 (2-11) % Eos % (Auto) 2.3 (0-4) % Baso % (Auto) 0.8 (0-2) % Lymph # (Auto) 1.4 (1.2-4.9) X10*3/uL [place] # (Auto) 0.5 (0.1-1.2) X10*3/uL Eos # (Auto) 0.2 (0.0-0.4) X10*3/uL Baso # (Auto) 0.1 (0.0-0.2) X10*3/uL Abs Immat Gran (auto) 0.02 (0.00-0.03) X10*3/uL Absolute Neuts (auto) 4.5 (2.0-8.3) x10*3/uL Absolute Nucleated RBC 0.000 (0.0-0.012) X10*3/uL Nucleated RBC % (auto) 0.0 (0.0-0.2) /100WBC PT 11.5 (10.0-13.1) SEC INR 1.0 (0.9-1.1) Sodium 139 (135-145) mmol/L Potassium 3.9 (3.3-5.1) mmol/L Chloride 106 (96-108) mmol/L Carbon Dioxide 26 (22-29) mmol/L Anion Gap 11 L (12-20) BUN 12 (9-16) mg/dL Creatinine 0.75 (0.5-1.4) mg/dL Estim Creat Clear Calc 68.2 Estimated GFR > 60 Random Glucose 104 (60-115) mg/dL Calcium 8.9 (8.4-10.2) mg/dL Magnesium 1.9 (1.6-2.6) mg/dL Total Bilirubin 0.3 (0.0-1.0) mg/dL AST 20 (5-31) U/L ALT 9 (0-31) U/L Alkaline Phosphatase 102 (39-117) U/L Total Protein 6.9 (6.5-8.0) g/dL Albumin 3.9 (3.5-5.0) g/dL Lipase 29 (8-78) U/L Urine Color Urine Appearance Urine pH (5.0-9.0) Ur Specific [place] (1.005-1.025) Urine Protein (Neg-Trace) mg/dL Urine Glucose (UA) (Negative) mg/dL Urine Ketones (Negative) mg/dL Urine Blood (Negative) Urine Nitrite (Negative) Ur Leukocyte Esterase (Negative) Ethyl Alcohol < 10 mg/dL COVID-19 ([facility]) (Negative) COVID-19 Clin Com 02/20/22 02/21/22 Range/Units 23:16 06:13 WBC (4.8-10.8) X10*3/uL RBC (4.20-5.50) X10*6/uL Hgb (12.0-16.0) g/dl Hct (37.0-47.0) % MCV (80.0-98.0) fL MCH (27.0-33.0) pg MCHC (31.0-35.0) g/dl RDW (11.0-16.0) % Plt Count (160-400) X10*3/uL MPV (9.4-12.3) fL Immature Gran % (Auto) (0.0-0.4) % Neut % (Auto) (45-73) % Lymph % (Auto) (20-40) % [place] % (Auto) (2-11) % Eos % (Auto) (0-4) % Baso % (Auto) (0-2) % Lymph # (Auto) (1.2-4.9) X10*3/uL [place] # (Auto) (0.1-1.2) X10*3/uL Eos # (Auto) (0.0-0.4) X10*3/uL Baso # (Auto) (0.0-0.2) X10*3/uL Abs Immat Gran (auto) (0.00-0.03) X10*3/uL Absolute Neuts (auto) (2.0-8.3) x10*3/uL Absolute Nucleated RBC (0.0-0.012) X10*3/uL Nucleated RBC % (auto) (0.0-0.2) /100WBC PT (10.0-13.1) SEC INR (0.9-1.1) Sodium (135-145) mmol/L Potassium (3.3-5.1) mmol/L Chloride (96-108) mmol/L Carbon Dioxide (22-29) mmol/L Anion Gap (12-20) BUN (9-16) mg/dL Creatinine (0.5-1.4) mg/dL Estim Creat Clear Calc Estimated GFR Random Glucose (60-115) mg/dL Calcium (8.4-10.2) mg/dL Magnesium (1.6-2.6) mg/dL Total Bilirubin (0.0-1.0) mg/dL AST (5-31) U/L ALT (0-31) U/L Alkaline Phosphatase (39-117) U/L Total Protein (6.5-8.0) g/dL Albumin (3.5-5.0) g/dL Lipase (8-78) U/L Urine Color Yellow Urine Appearance Clear Urine pH 5.5 (5.0-9.0) Ur Specific [place] 1.010 (1.005-1.025) Urine Protein Negative (Neg-Trace) mg/dL Urine Glucose (UA) Negative (Negative) mg/dL Urine Ketones Negative (Negative) mg/dL Urine Blood Negative (Negative) Urine Nitrite Negative (Negative) Ur Leukocyte Esterase Negative (Negative) Ethyl Alcohol mg/dL COVID-19 ([facility]) Negative (Negative) COVID-19 Clin Com See Note <Yo Moeller MD - Last Filed: 02/20/22 23:50> Lab Results 02/20/22 02/20/22 02/20/22 Range/Units 13:57 13:57 13:57 WBC 6.6 (4.8-10.8) X10*3/uL RBC 4.04 L (4.20-5.50) X10*6/uL Hgb 10.5 L (12.0-16.0) g/dl Hct 33.4 L (37.0-47.0) % MCV 82.7 (80.0-98.0) fL MCH 26.0 L (27.0-33.0) pg MCHC 31.4 (31.0-35.0) g/dl RDW 14.5 (11.0-16.0) % Plt Count 377 (160-400) X10*3/uL MPV 9.7 (9.4-12.3) fL Immature Gran % (Auto) 0.3 (0.0-0.4) % Neut % (Auto) 68.9 (45-73) % Lymph % (Auto) 20.7 (20-40) % [place] % (Auto) 7.0 (2-11) % Eos % (Auto) 2.3 (0-4) % Baso % (Auto) 0.8 (0-2) % Lymph # (Auto) 1.4 (1.2-4.9) X10*3/uL [place] # (Auto) 0.5 (0.1-1.2) X10*3/uL Eos # (Auto) 0.2 (0.0-0.4) X10*3/uL Baso # (Auto) 0.1 (0.0-0.2) X10*3/uL Abs Immat Gran (auto) 0.02 (0.00-0.03) X10*3/uL Absolute Neuts (auto) 4.5 (2.0-8.3) x10*3/uL Absolute Nucleated RBC 0.000 (0.0-0.012) X10*3/uL Nucleated RBC % (auto) 0.0 (0.0-0.2) /100WBC PT 11.5 (10.0-13.1) SEC INR 1.0 (0.9-1.1) Sodium 139 (135-145) mmol/L Potassium 3.9 (3.3-5.1) mmol/L Chloride 106 (96-108) mmol/L Carbon Dioxide 26 (22-29) mmol/L Anion Gap 11 L (12-20) BUN 12 (9-16) mg/dL Creatinine 0.75 (0.5-1.4) mg/dL Estim Creat Clear Calc 68.2 Estimated GFR > 60 Random Glucose 104 (60-115) mg/dL Calcium 8.9 (8.4-10.2) mg/dL Magnesium 1.9 (1.6-2.6) mg/dL Total Bilirubin 0.3 (0.0-1.0) mg/dL AST 20 (5-31) U/L ALT 9 (0-31) U/L Alkaline Phosphatase 102 (39-117) U/L Total Protein 6.9 (6.5-8.0) g/dL Albumin 3.9 (3.5-5.0) g/dL Lipase 29 (8-78) U/L Urine Color Urine Appearance Urine pH (5.0-9.0) Ur Specific [place] (1.005-1.025) Urine Protein (Neg-Trace) mg/dL Urine Glucose (UA) (Negative) mg/dL Urine Ketones (Negative) mg/dL Urine Blood (Negative) Urine Nitrite (Negative) Ur Leukocyte Esterase (Negative) Ethyl Alcohol < 10 mg/dL COVID-19 ([facility]) (Negative) COVID-19 Clin Com 02/20/22 02/21/22 Range/Units 23:16 06:13 WBC (4.8-10.8) X10*3/uL RBC (4.20-5.50) X10*6/uL Hgb (12.0-16.0) g/dl Hct (37.0-47.0) % MCV (80.0-98.0) fL MCH (27.0-33.0) pg MCHC (31.0-35.0) g/dl RDW (11.0-16.0) % Plt Count (160-400) X10*3/uL MPV (9.4-12.3) fL Immature Gran % (Auto) (0.0-0.4) % Neut % (Auto) (45-73) % Lymph % (Auto) (20-40) % [place] % (Auto) (2-11) % Eos % (Auto) (0-4) % Baso % (Auto) (0-2) % Lymph # (Auto) (1.2-4.9) X10*3/uL [place] # (Auto) (0.1-1.2) X10*3/uL Eos # (Auto) (0.0-0.4) X10*3/uL Baso # (Auto) (0.0-0.2) X10*3/uL Abs Immat Gran (auto) (0.00-0.03) X10*3/uL Absolute Neuts (auto) (2.0-8.3) x10*3/uL Absolute Nucleated RBC (0.0-0.012) X10*3/uL Nucleated RBC % (auto) (0.0-0.2) /100WBC PT (10.0-13.1) SEC INR (0.9-1.1) Sodium (135-145) mmol/L Potassium (3.3-5.1) mmol/L Chloride (96-108) mmol/L Carbon Dioxide (22-29) mmol/L Anion Gap (12-20) BUN (9-16) mg/dL Creatinine (0.5-1.4) mg/dL Estim Creat Clear Calc Estimated GFR Random Glucose (60-115) mg/dL Calcium (8.4-10.2) mg/dL Magnesium (1.6-2.6) mg/dL Total Bilirubin (0.0-1.0) mg/dL AST (5-31) U/L ALT (0-31) U/L Alkaline Phosphatase (39-117) U/L Total Protein (6.5-8.0) g/dL Albumin (3.5-5.0) g/dL Lipase (8-78) U/L Urine Color Yellow Urine Appearance Clear Urine pH 5.5 (5.0-9.0) Ur Specific [place] 1.010 (1.005-1.025) Urine Protein Negative (Neg-Trace) mg/dL Urine Glucose (UA) Negative (Negative) mg/dL Urine Ketones Negative (Negative) mg/dL Urine Blood Negative (Negative) Urine Nitrite Negative (Negative) Ur Leukocyte Esterase Negative (Negative) Ethyl Alcohol mg/dL COVID-19 ([facility]) Negative (Negative) COVID-19 Clin Com See Note <Kev Guaman MD - Last Filed: 02/21/22 09:51> Medications Administered Generic Name Dose Route Start Last Admin Trade Name Freq PRN Reason Stop Dose Admin Heparin Sodium (Porcine) 5,000 unit 02/21/22 09:15 02/21/22 09:26 Heparin Sodium,Porcine 5,000 Unit/Ml Vial SUBCUT 5,000 unit Q12H LUIS M Administration Discontinued Medications Generic Name Dose Route Start Last Admin Trade Name Freq PRN Reason Stop Dose Admin Iohexol 100 ml 02/21/22 01:23 02/21/22 01:23 Iohexol 350 Mg/Ml 100 Ml Infus..Btl IV 02/21/22 01:24 85 ml ONCE ONE Administration Oxycodone HCl 5 mg 02/20/22 23:42 02/21/22 00:56 Oxycodone Hcl Immed Release 5 Mg Tablet PO 02/20/22 23:43 5 mg ONCE ONE Administration Oxycodone HCl 5 mg 02/21/22 07:55 02/21/22 08:00 Oxycodone Hcl Immed Release 5 Mg Tablet PO 02/21/22 07:56 5 mg ONCE STA Administration <Yo Moeller MD - Last Filed: 02/20/22 23:50> Medications Administered Generic Name Dose Route Start Last Admin Trade Name Freq PRN Reason Stop Dose Admin Heparin Sodium (Porcine) 5,000 unit 02/21/22 09:15 02/21/22 09:26 Heparin Sodium,Porcine 5,000 Unit/Ml Vial SUBCUT 5,000 unit Q12H LUIS M Administration Discontinued Medications Generic Name Dose Route Start Last Admin Trade Name Freq PRN Reason Stop Dose Admin Iohexol 100 ml 02/21/22 01:23 02/21/22 01:23 Iohexol 350 Mg/Ml 100 Ml Infus..Btl IV 02/21/22 01:24 85 ml ONCE ONE Administration Oxycodone HCl 5 mg 02/20/22 23:42 02/21/22 00:56 Oxycodone Hcl Immed Release 5 Mg Tablet PO 02/20/22 23:43 5 mg ONCE ONE Administration Oxycodone HCl 5 mg 02/21/22 07:55 02/21/22 08:00 Oxycodone Hcl Immed Release 5 Mg Tablet PO 02/21/22 07:56 5 mg ONCE STA Administration <Kev Guaman MD - Last Filed: 02/21/22 09:51> Discharge Plan Discharge Clinical Impression: Abdominal mass, RUQ (right upper quadrant) <Yo Moeller MD - Last Filed: 02/20/22 23:50> Patient Disposition: Admitted As Inpatient <Yo Moeller MD - Last Filed: 02/20/22 23:50>
[2022-02-21] VITALS (8 sets, daily range): BP systolic 124–147; BP diastolic 63–87; PULSE 64–82; RESP 15–18; TEMP 36.7–37.1; O2SAT 96–97; BMI 25.1
[2022-02-21] MEDS: oxyCODONE HCl Immed Release 5 MG TABLET PO ×2 (00:56→08:00)
[2022-02-21] MEDS: iohexoL 350 MG/ML 100 ML INFUS..BTL IV (01:23)
--- NOTE | 2022-02-21 04:16 | PC.NURSE ---
PT V/S are stable, pt is a/o x 5, and independent. Pt reports experiencing left flank pain 10/10. Provider has been notified.
[2022-02-21 06:38] LABS: COVID-19 Test Negative (Negative); IDNOW Serial# 08D9AD1C
--- NOTE | 2022-02-21 08:57 | PM.IMHP ---
History of Present Illness Date of Service: 02/21/22 Chief Complaint: Abdominal pain 66 year old female with history of cervical cancer about 6 years ago status post chemo, rheumatoid arthritis, history of opiate abuse. He she presented with abdominal pain that has been ongoing for weeks. Patient relates that she has been having some pain on the right side of the abdomen that radiates somewhat to the back initially was intermittent and she tried to manage it with [id number] medication. But about the last 4 or so weeks the pain has been intensifying and had seen her primary care physician and was recommended by symptomatic treatment only. On this occasion she actually presented to the emergency room because her knee was bothering her and also complained that she was having this particular abdominal pain that was described. A CT scan was subsequently done and showed the following findings. There is a new 6.2 cm mass centered in the region of the right adrenal gland with invasion into the upper right kidney, IVC and a large surface of contact with the posterior right hepatic lobe. Findings are suspicious for an adrenal gland malignancy such as cortical carcinoma, less likely a tumor of renal origin. ? Periportal, upper retroperitoneal and perirenal metastatic soft tissue nodules/lymph nodes. ? Equivocal wall thickening of the rectosigmoid colon, suboptimally assessed due to underdistention. Recommend clinical correlation for mild diverticulitis or colitis, and if not recently obtained evaluation with a colonoscopy. ? Questionable urinary bladder wall thickening, correlation with urinalysis could be obtained. ? Small volume of ascites and free fluid in the pelvis, nonspecific, malignant nature is not excluded. She has never had a colonoscopy done before. Review of Systems Review of Systems: Gen: no fever Resp: no sob, no cough CV: no chest, no BELL, no leg edema GI: No n/v, +abd pain Neuro: No confusion Right knee pain Yes all other systems are reviewed and are negative [facility] Medical History Back pain Cervical cancer Opiate abuse, episodic Osteoarthritis of both knees Osteopenia determined by x-ray Primary osteoarthritis of knees, bilateral Seropositive rheumatoid arthritis Family History Father Acute CVA (cerebrovascular accident) Mother Hypertension Hypercholesterolemia Brother Liver transplant status Family history of thyroid problem Surgical History History of appendectomy History of cholecystectomy History of D&C History of tonsillectomy Social History Household Members: Family Housing: House Do you presently have visiting nurse or other home services: No Alcohol intake: never Patient Tobacco Use Status: Former Tobacco user Quit Date: 2016 Tobacco use type: Cigarette Smoked in Last 30 Days: No e-Cigarette/Vaping Use: Never Used Patient Interested in Nicotine Replacement: No Patient Given Instructions on How to Stop Smoking: No Second Hand Smoke Exposure: No Use of substances other than those prescribed or required for medical reasons: No Currently Displaying Signs/Symptoms of Drug Intoxication Withdrawal: No Have you been hit, kicked, punched, or otherwise hurt by someone within the past year? If so, by whom?: No Do you feel safe in your current relationship?: No Current Relationship Is there a partner from a previous relationship who is making you feel unsafe now?: No Are you made to feel afraid or neglected: No Advance Directives: No Do you have thoughts of harming others: None Do you have a plan to hurt others: No Plan Recently lost weight without trying: No How much weight loss: Not applicable Eating poorly because of decreased appetite: No Nutrition screen score: 0 Nutrition Risks: No Nutritional Risk Patient : No : No Poor oral hygiene: No service: No Current occupational status: employed and 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 Cognitive needs: No Hearing needs: No Vision needs: Yes Meds Allergies Allergy/AdvReac Type Severity Reaction Status Date / Time buprenorphine [Belbuca] Allergy Intermediate nausea Verified 02/12/22 16:38 Home Medications Medication Instructions Recorded Confirmed Last Taken Type lorazepam 1 mg tablet 1 tab PO Q8H PRN Anxiety 02/21/22 02/21/22 Unknown History prednisone 5 mg tablet 1 tab PO BID 02/21/22 02/21/22 Unknown History sertraline 50 mg tablet 1 tab PO DAILY 02/21/22 02/21/22 Unknown History Physical Exam Vital Signs and Narrative: Vital Signs: Last Vital Signs Temp 98.1 F 02/21/22 03:56 Pulse 64 02/21/22 06:29 Resp 16 02/21/22 06:29 BP 143/87 H 02/21/22 06:29 Pulse Ox 97 02/21/22 06:29 O2 Del Method 02/21/22 06:29 BMI result Body Mass Index 25.0 Results Labs CBC and Chem 7: 02/20/22 13:57 02/20/22 13:57 Labs: Laboratory Results - last 24 hr 02/20/22 02/20/22 02/20/22 13:57 13:57 13:57 MCV 82.7 MCH 26.0 L MCHC 31.4 RDW 14.5 Plt Count 377 MPV 9.7 Immature Gran % (Auto) 0.3 Neut % (Auto) 68.9 Lymph % (Auto) 20.7 [facility] % (Auto) 7.0 Eos % (Auto) 2.3 Baso % (Auto) 0.8 Lymph # (Auto) 1.4 [facility] # (Auto) 0.5 Eos # (Auto) 0.2 Baso # (Auto) 0.1 Abs Immat Gran (auto) 0.02 Absolute Neuts (auto) 4.5 Absolute Nucleated RBC 0.000 Nucleated RBC % (auto) 0.0 PT 11.5 INR 1.0 Anion Gap 11 L Estim Creat Clear Calc 68.2 Estimated GFR > 60 Random Glucose 104 Calcium 8.9 Magnesium 1.9 Total Bilirubin 0.3 AST 20 ALT 9 Alkaline Phosphatase 102 Total Protein 6.9 Albumin 3.9 Lipase 29 Urine Color Urine Appearance Urine pH Ur Specific [place]rose Urine Protein Urine Glucose (UA) Urine Ketones Urine Blood Urine Nitrite Ur Leukocyte Esterase Ethyl Alcohol < 10 COVID-19 ([facility]) COVID-19 Clin Com 02/20/22 02/21/22 23:16 06:13 MCV MCH MCHC RDW Plt Count MPV Immature Gran % (Auto) Neut % (Auto) Lymph % (Auto) [facility] % (Auto) Eos % (Auto) Baso % (Auto) Lymph # (Auto) [facility] # (Auto) Eos # (Auto) Baso # (Auto) Abs Immat Gran (auto) Absolute Neuts (auto) Absolute Nucleated RBC Nucleated RBC % (auto) PT INR Anion Gap Estim Creat Clear Calc Estimated GFR Random Glucose Calcium Magnesium Total Bilirubin AST ALT Alkaline Phosphatase Total Protein Albumin Lipase Urine Color Yellow Urine Appearance Clear Urine pH 5.5 Ur Specific Ambrose 1.010 Urine Protein Negative Urine Glucose (UA) Negative Urine Ketones Negative Urine Blood Negative Urine Nitrite Negative Ur Leukocyte Esterase Negative Ethyl Alcohol COVID-19 ([facility]) Negative COVID-19 Clin Com See Note Imaging Radiologist's Impressions: Impressions Knee X-Ray 02/20/22 14:14 IMPRESSION: Moderate degenerative joint changes without acute fracture. Moderate suprapatellar joint effusion. Knee X-Ray 02/20/22 14:20 IMPRESSION: 1. Large joint effusion. No acute osseous injury identified. 2. Tricompartmental knee joint osteoarthritis, similar to prior. Abdomen Ultrasound 02/20/22 15:40 IMPRESSION: 1. Heterogeneously echogenic right suprarenal mass measuring approximately 4.1 x 5.8 x 6.1 cm in size. Question renal versus adrenal origin. Suggest initial further evaluation with contrast-enhanced CT. 2. Status post cholecystectomy. Mild intra and extrahepatic biliary ductal dilation, similar to MRI/MRCP 11/11/2018. Abdomen/Pelvis CT 02/21/22 01:29 IMPRESSION: There is a new 6.2 cm mass centered in the region of the right adrenal gland with invasion into the upper right kidney, IVC and a large surface of contact with the posterior right hepatic lobe. Findings are suspicious for an adrenal gland malignancy such as cortical carcinoma, less likely a tumor of renal origin. Periportal, upper retroperitoneal and perirenal metastatic soft tissue nodules/lymph nodes. Equivocal wall thickening of the rectosigmoid colon, suboptimally assessed due to underdistention. Recommend clinical correlation for mild diverticulitis or colitis, and if not recently obtained evaluation with a colonoscopy. Questionable urinary bladder wall thickening, correlation with urinalysis could be obtained. Small volume of ascites and free fluid in the pelvis, nonspecific, malignant nature is not excluded. This critical result was discussed with Dr. Guaman at 02/21/2022 3:02 AM and it was ascertained that the content and urgency of the report was understood at the time of direct communication. Assessment and Plan (1) Adrenal mass greater than 4 cm in diameter: Status: Acute (2) Abdominal mass, RUQ (right upper quadrant): Status: Acute Plan 66/F with abdominal pain and found to have adrenal lesion, liver lesion, colon leasion that likely represent metastatic cancer 1/ Highly suspected right adrenal mass involving rigth kidney, IV, liver -Need further work, will get oncology to guide with work up -Morphine for pain -Urology consult and Gi consult 2/Right mark pain--xray show a large effusion -Pain control and ortho consult 3/Mood desorder--Ativan, Remron 4/RA continue home meds DVT prophylaxis--Heparin Full code Admission to last at least 2 midngith for managment of pain and likely metastatic cancer work up Time Spent With Patient Time: Total time managing care of this patient today ____ minutes. Quality Stroke Does the patient have a stroke diagnosis?: No VTE Prior VTE?: No VTE Risk Level:: Medical - moderate - high VTE Device Contraindication: Treatment Not Indicated VTE Drug Contraindication: N/A - Med Ordered
[2022-02-21] MEDS: Heparin Sodium,Porcine 5,000 UNIT/ML VIAL 5000 UNIT SUBCUT (09:26)
--- NOTE | 2022-02-21 10:18 | PC.NURSE ---
aware of care plan,nad, reports good pain relief w oxycodone, she was happy to hear that she'll be getting dilaudid for her pain now as it has worked well in the past, ate some breakfast, steady gait to bathroom, made a few phone calls, spoke w hospitalist and now sleeping w rayna
[2022-02-21 11:30] LABS: Glucose, Whole Blood 128 mg/dL (60-115)
[2022-02-21] MEDS: HYDROmorphone HCl 1 MG/ML SYRINGE 0.5 MG IVPUSH ×2 (12:54→18:30)
--- NOTE | 2022-02-21 12:54 | PC.NURSE ---
medicated for pain, alert, nad, awaiting med rec acknowledgement from dr Cesar
[2022-02-21] MEDS: Gabapentin 600 MG TABLET PO (14:08)
[2022-02-21] MEDS: LORazepam 1 MG TABLET PO (14:09)
[2022-02-21] MEDS: Mirtazapine 15 MG TABLET PO (14:09)
[2022-02-21] MEDS: predniSONE 5 MG TABLET PO ×2 (14:09→20:04)
[2022-02-21] MEDS: Sertraline HCL 50 MG TABLET PO (14:09)
--- NOTE | 2022-02-21 14:57 | PM.HEMONCCN ---
Subjective - Subjective Chief complaint: Right flank pain Patient: new to practice Consult date: 02/21/22 Primary Care Provider: Dean Villalba MD HPI - Consult Narrative Reason for consult: right adrenal tumor Narrative: Evelyn Marin is a 66 year old woman presenting with worsening right flank pain that has been going on for about 4-6 weeks. She says it is in the back below her ribcage radiating to the front and sometimes to her pelvis. She denies any associated symptoms such as dysuria or hematuria. No fever or chills. She reports chronic problems with knee arthralgias and having difficulty getting around. She denies any significant loss of appetite or weight loss. She was treated in 2017 for cervical cancer at [facility] under the care of Dr. Bledsoe. She received chemo and radiation after surgery. She lives at home with her daughter. She denies smoking or alcohol use. She never had a screening colonoscopy. Review of Systems - Constitutional Reports as per HPI, Reports fatigue, Reports lack of energy, Reports malaise, Denies night sweats, Denies weakness, Denies weight loss - Cardiovascular Reports no additional cardiovascular complaints - Respiratory Reports no additional respiratory complaints - Gastrointestinal Reports no additional gastrointestinal complaints Oncology Screenings - ECOG Performance Status ECOG Performance Status: 2 [facility] Medical History: Medical History (Last Reviewed 02/21/22 @ 21:54 by MONSE Harrell) Back pain Cervical cancer Opiate abuse, episodic Osteoarthritis of both knees Osteopenia determined by x-ray Primary osteoarthritis of knees, bilateral Seropositive rheumatoid arthritis Family History: Family History (Last Reviewed 02/21/22 @ 21:54 by MONSE Harrell) Father Acute CVA (cerebrovascular accident) Mother Hypertension Hypercholesterolemia Brother Liver transplant status Family history of thyroid problem Surgical History: Surgical History (Last Reviewed 02/21/22 @ 21:55 by MONSE Harrell) History of appendectomy History of cholecystectomy History of D&C History of tonsillectomy Social History: Social History (Last Reviewed 02/21/22 @ 21:55 by MONSE Harrell) Living Situation History: Household Members: Family Housing: House Do you presently have visiting nurse or other home services: No Alcohol History Details: 1. How often do you have a drink containing alcohol?: a. Never AUDIT-C Alcohol total score: 0 Currently Displaying Signs/Symptoms of Alcohol Withdrawal: No Tobacco History: Patient Tobacco Use Status: Former Tobacco user Tobacco use type: Cigarette Smoked in Last 30 Days: No Smoke Quit Date: 2016 e-Cigarette/Vaping Use: Never Used Patient Interested in Nicotine Replacement: No Patient Given Instructions on How to Stop Smoking: No Second Hand Smoke Exposure: No Substance Use History: Use of substances other than those prescribed or required for medical reasons: No Currently Displaying Signs/Symptoms of Drug Intoxication Withdrawal: No Domestic Abuse History: Have you been hit, kicked, punched, or otherwise hurt by someone within the past year? If so, by whom?: No Do you feel safe in your current relationship?: No Current Relationship Is there a partner from a previous relationship who is making you feel unsafe now?: No Are you made to feel afraid or neglected: No Advance Directives: Advance Directives: No Advance Directives Information Provided: Advance Directives Information Provided comment: Declined Homicidal Assessment: Do you have thoughts of harming others: None Do you have a plan to hurt others: No Plan Nutrition Assessment: Recently lost weight without trying: No How much weight loss: Not applicable Eating poorly because of decreased appetite: No Nutrition screen score: 0 Nutrition Risks: No Nutritional Risk Patient : No : No Poor oral hygiene: No Occupation Assessmet: service: No Current occupational status: employed 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 Medications and Allergies Current Medications: Current Medications Acetaminophen (Acetaminophen 325 Mg Tablet) 650 mg PO Q6H PRN PRN Reason: Pain, Mild (Pain Scale 1-3) Gabapentin (Gabapentin 600 Mg Tablet) 600 mg PO DAILY [facility] Last Admin: 02/21/22 14:08 Dose: 600 mg Heparin Sodium (Porcine) (Heparin Sodium,Porcine 5,000 Unit/Ml Vial) 5,000 unit SUBCUT Q12H [facility] Last Admin: 02/21/22 09:26 Dose: 5,000 unit Hydromorphone HCl (Hydromorphone Hcl 1 Mg/Ml Syringe) 0.5 mg IVPUSH Q4H PRN; Protocol PRN Reason: Pain, Severe (Pain Scale 7-10) Last Admin: 02/21/22 12:54 Dose: 0.5 mg Lorazepam (Lorazepam 1 Mg Tablet) 1 mg PO Q8H PRN PRN Reason: Anxiety Last Admin: 02/21/22 14:09 Dose: 1 mg Melatonin (Melatonin 3 Mg Tablet) 6 mg PO BEDTIME PRN PRN Reason: Insomnia Mirtazapine (Mirtazapine 15 Mg Tablet) 15 mg PO DAILY [facility] Last Admin: 02/21/22 14:09 Dose: 15 mg Ondansetron HCl (Ondansetron Hcl 4 Mg/2 Ml Vial) 4 mg IVPUSH Q8H PRN PRN Reason: Nausea and Vomiting Prednisone (Prednisone 5 Mg Tablet) 5 mg PO BID [facility] Last Admin: 02/21/22 14:09 Dose: 5 mg Sertraline HCl (Sertraline Hcl 50 Mg Tablet) 50 mg PO DAILY [facility] Last Admin: 02/21/22 14:09 Dose: 50 mg Sodium Chloride (0.9 % Sodium Chloride Flush 3 Ml Syringe) 3 ml IVFLUSH QSHIFT [facility] Home Medications Medication Instructions Recorded Confirmed Type lorazepam 1 mg tablet 1 tab PO Q8H PRN Anxiety 02/21/22 02/21/22 History prednisone 5 mg tablet 1 tab PO BID 02/21/22 02/21/22 History sertraline 50 mg tablet 1 tab PO DAILY 02/21/22 02/21/22 History Allergies Allergy/AdvReac Type Severity Reaction Status Date / Time buprenorphine [Belbuca] Allergy Intermediate nausea Verified 02/12/22 16:38 Physical Exam Vital signs: Vital Signs Temp 98.6 F 02/21/22 11:47 Pulse 82 02/21/22 14:00 Resp 16 02/21/22 14:00 BP 134/81 02/21/22 14:00 Pulse Ox 97 02/21/22 14:00 O2 Del Method 02/21/22 14:00 Intake & Output 02/20/22 02/21/22 02/21/22 18:59 06:59 18:59 Other: Weight 68.039 kg Weight 68.039 kg - Constitutional Present: no acute distress - Routine HEENT Exam Head: Present: normal inspection Eye: Present: EOMI, PERRL - Routine Neck Exam Present: supple. Absent: lymphadenopathy - Routine Respiratory Exam Absent: accessory muscle use - Routine Cardiovascular Exam Cardiovascular: Present: S1, S2 - Routine Abdominal Exam Present: diminished bowel sounds, tenderness. Absent: guarding - Routine Extremities Exam Absent: calf tenderness Hem/Onc Consult Result - Labs CBC & Chem 7: 02/20/22 13:57 02/20/22 13:57 Labs: BMP 02/20/22 13:57 Sodium 139 Potassium 3.9 Chloride 106 Carbon Dioxide 26 BUN 12 Creatinine 0.75 Calcium 8.9 Liver Function 02/20/22 Range/Units 13:57 Total Bilirubin 0.3 (0.0-1.0) mg/dL AST 20 (5-31) U/L ALT 9 (0-31) U/L Alkaline Phosphatase 102 (39-117) U/L Albumin 3.9 (3.5-5.0) g/dL Urine 02/20/22 Range/Units 23:16 Urine Color Yellow Urine Appearance Clear Urine pH 5.5 (5.0-9.0) Ur Specific [place] 1.010 (1.005-1.025) Urine Protein Negative (Neg-Trace) mg/dL Urine Glucose (UA) Negative (Negative) mg/dL Assessment and Plan Patient Active problem list reviewed?: Yes (1) Adrenal mass greater than 4 cm in diameter Status: Acute Assessment and plan: 1. This is a 66-year-old woman presenting with right flank pain and found to have large adrenal mass suspicious for carcinoma. CT abdomen/ pelvis performed 02/21 with IV contrast revealed a 6.2 x 5.3 cm mass in the right adrenal gland extending into retrocaval space and retroperitoneum. IVC is inseparable from this mass likely invaded. Enlarged left inguinal lymph node, enlarged periportal and upper retroperitoneal lymph nodes measuring up to 0.9 cm. Trace amount of ascites in the right paracolic gutter. She appears to have locally advanced disease. Metastatic disease will have to be ruled out either with PET scan or CT chest with contrast and a bone scan. She does not appear to have any symptoms of hormone excess such as Chelsea syndrome or glucocorticoid excess. Her potassium level is normal. She probably has nonfunctioning tumor, however pheochromocytoma will have to be ruled out before biopsy. I have ordered levels of DHEA sulfate, cortisol, plasma catecholamines and metanephrines, 24 hour urine for metanephrines, cortisol and creatinine. Workup for hereditary cancer syndrome such as Li-Fraumeni syndrome, multiple endocrine neoplasia type 1 to be performed as outpatient. I have placed a call to Dr. London with [facility] for further recommendations/urgent consultation which can be done as outpatient. I thank you very much for this consultation, will follow with you. - Time Spent With Patient Time Spent with Patient (in minutes): 25
--- NOTE | 2022-02-21 16:22 | PM.EVENT ---
Event Note Date of Service: 02/21/22 Event Note: GI consult dictated The CT findings in the rectosigmoid are equivicoal and the study is limited as it does not include the distal rectum. I recommend outpatient colonoscopy after workup of the adrenal mass, which seems a more significant issue. Time Spent With Patient Time: Total time managing care of this patient today ____ minutes.
[2022-02-21] MEDS: 0.9 % Sodium Chloride Flush 3 ML SYRINGE IVFLUSH ×2 (16:57→20:05)
[2022-02-21] MEDS: Melatonin 3 MG TABLET 6 MG PO (20:04)
--- NOTE | 2022-02-21 21:29 | PM.UROCN ---
History of Present Illness Consult details Consult date: 02/21/22 Reason for consult: other (adrenal mass) Narrative: Evelyn is a pleasant 66 year old female who presented to the ER on 02/20 for complaints of bilateral leg pain/ weakness and right upper quadrant pain radiating to her back and abdominal area. She reports over the last 4 years she has had intermittent in bilateral leg pain with weakness. During today's assessment she continues to discuss being on and off medications related to her bilateral leg pain. She states the only thing that works for her is oxycodone however was taken off by her PCP in switched to tramadol in which she has not found effective. In discussion with the patient today she also mentioned she feels overwhelmed with her life. She discusses she feels as if everything is breaking down. She states her washer is broken, her refrigerator is broken, her phone is broken, and now her body is broken. She does however report having help at home and lives with her daughter. She denies any other symptoms. She states besides the bilateral leg pain/weakness and right sided upper quadrant abdominal pain she feels she is doing well. She states my appetite has been good and I have been myself I have discussed CT results with the patient. CT scan of the abdomen & pelvis reading as follows: IMPRESSION: There is a new 6.2 cm mass centered in the region of the right adrenal gland with invasion into the upper right kidney, IVC and a large surface of contact with the posterior right hepatic lobe. Findings are suspicious for an adrenal gland malignancy such as cortical carcinoma, less likely a tumor of renal origin. ? Periportal, upper retroperitoneal and perirenal metastatic soft tissue nodules/lymph nodes. ? Equivocal wall thickening of the rectosigmoid colon, suboptimally assessed due to underdistention. Recommend clinical correlation for mild diverticulitis or colitis, and if not recently obtained evaluation with a colonoscopy. ? Questionable urinary bladder wall thickening, correlation with urinalysis could be obtained. ? Small volume of ascites and free fluid in the pelvis, nonspecific, malignant nature is not excluded. She mentions she was already given the results by one of the providers here in the emergency room. She is aware that she will be going for an MRI as ordered by our office. In addition to a possible biopsy tomorrow pending MRI results per ER physician and [facility] [employer]. Patient is agreeable with this plan and all her questions were answered. Will await MRI results to further assess and coordinate care. Review of Systems Constitutional: Constitutional: Denies anorexia, Denies body ache(s), Denies chills, Denies fever(s), Denies lethargy, Denies malaise and Reports weakness (bilateral legs ) Eyes: Eyes: Reports no additional eye complaints ENT: Reports system reviewed and no additional complaints, except as documented Cardiovascular: Cardiovascular: Reports no additional cardiovascular complaints Respiratory: Respiratory: Reports no additional respiratory complaints Gastrointestinal: Gastrointestinal: Reports no additional gastrointestinal complaints Genitourinary: Genitourinary: Reports no additional female genitourinary complaints Musculoskeletal: Musculoskeletal: Reports as per HPI Neurologic: Reports weakness (bilateral legs ) Psychiatric: Psychiatric: Reports no additional psychiatric complaints Endocrine: Endocrine: Reports no additional endocrine complaints Hematologic/Lymphatic: Hematologic/Lymphatic: Reports no additional hematologic/lymphatic complaints Allergic/Immunologic: Allergic/Immunologic: Reports no additional allergic/immunologic complaints PMFSH Past Medical History Medical History Back pain Cervical cancer Opiate abuse, episodic Osteoarthritis of both knees Osteopenia determined by x-ray Primary osteoarthritis of knees, bilateral Seropositive rheumatoid arthritis Functional capacity: uses cane/walker Family History Family History Father Acute CVA (cerebrovascular accident) Mother Hypertension Hypercholesterolemia Brother Liver transplant status Family history of thyroid problem Surgical History Surgical History History of appendectomy History of cholecystectomy History of D&C History of tonsillectomy Social History Social History Household Members: Family Housing: House Do you presently have visiting nurse or other home services: No Alcohol intake: never Patient Tobacco Use Status: Former Tobacco user Quit Date: 2016 Tobacco use type: Cigarette Smoked in Last 30 Days: No e-Cigarette/Vaping Use: Never Used Patient Interested in Nicotine Replacement: No Patient Given Instructions on How to Stop Smoking: No Second Hand Smoke Exposure: No Use of substances other than those prescribed or required for medical reasons: No Have you been hit, kicked, punched, or otherwise hurt by someone within the past year? If so, by whom?: No Do you feel safe in your current relationship?: No Current Relationship Is there a partner from a previous relationship who is making you feel unsafe now?: No Are you made to feel afraid or neglected: No Advance Directives: No Do you have thoughts of harming others: None Do you have a plan to hurt others: No Plan Recently lost weight without trying: No How much weight loss: Not applicable Eating poorly because of decreased appetite: No Nutrition screen score: 0 Nutrition Risks: No Nutritional Risk Patient : No : No Poor oral hygiene: No service: No Current occupational status: employed and 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 Cognitive needs: No Hearing needs: No Vision needs: Yes Meds Allergies Allergy/AdvReac Type Severity Reaction Status Date / Time buprenorphine [Belbuca] Allergy Intermediate nausea Verified 02/12/22 16:38 Active Medications: Current Medications Acetaminophen (Acetaminophen 325 Mg Tablet) 650 mg PO Q6H PRN PRN Reason: Pain, Mild (Pain Scale 1-3) Gabapentin (Gabapentin 600 Mg Tablet) 600 mg PO DAILY [facility] Last Admin: 02/21/22 14:08 Dose: 600 mg Heparin Sodium (Porcine) (Heparin Sodium,Porcine 5,000 Unit/Ml Vial) 5,000 unit SUBCUT Q12H [facility] Last Admin: 02/21/22 09:26 Dose: 5,000 unit Hydromorphone HCl (Hydromorphone Hcl 1 Mg/Ml Syringe) 0.5 mg IVPUSH Q4H PRN; Protocol PRN Reason: Pain, Severe (Pain Scale 7-10) Last Admin: 02/21/22 18:30 Dose: 0.5 mg Lorazepam (Lorazepam 1 Mg Tablet) 1 mg PO Q8H PRN PRN Reason: Anxiety Last Admin: 02/21/22 14:09 Dose: 1 mg Melatonin (Melatonin 3 Mg Tablet) 6 mg PO BEDTIME PRN PRN Reason: Insomnia Last Admin: 02/21/22 20:04 Dose: 6 mg Mirtazapine (Mirtazapine 15 Mg Tablet) 15 mg PO DAILY [facility] Last Admin: 02/21/22 14:09 Dose: 15 mg Ondansetron HCl (Ondansetron Hcl 4 Mg/2 Ml Vial) 4 mg IVPUSH Q8H PRN PRN Reason: Nausea and Vomiting Prednisone (Prednisone 5 Mg Tablet) 5 mg PO BID [facility] Last Admin: 02/21/22 20:04 Dose: 5 mg Sertraline HCl (Sertraline Hcl 50 Mg Tablet) 50 mg PO DAILY [facility] Last Admin: 02/21/22 14:09 Dose: 50 mg Sodium Chloride (0.9 % Sodium Chloride Flush 3 Ml Syringe) 3 ml IVFLUSH QSHIFT [facility] Last Admin: 02/21/22 20:05 Dose: 3 ml Home Medications Medication Instructions Recorded Confirmed Last Taken Type lorazepam 1 mg tablet 1 tab PO Q8H PRN Anxiety 02/21/22 02/21/22 Unknown History prednisone 5 mg tablet 1 tab PO BID 02/21/22 02/21/22 Unknown History sertraline 50 mg tablet 1 tab PO DAILY 02/21/22 02/21/22 Unknown History Physical Exam Vital Signs: Vital Signs: Last Vital Signs Temp 98.6 F 02/21/22 19:49 Pulse 75 02/21/22 19:49 Resp 18 02/21/22 19:49 BP 131/64 02/21/22 19:49 Pulse Ox 97 02/21/22 19:49 O2 Del Method 02/21/22 19:49 BMI result Body Mass Index 25.1 Const: General: cooperative, comfortable, no acute distress, well developed, alert and awake Nutritional Appearance: average body habitus Orientation/consciousness: patient oriented x3 Limitations: ambulation with cane HEENT: Head: Yes normal to inspection and Yes normocephalic Eyes: General: appearance normal, both eyes and all related structures Neck: Neck: Yes normal visual inspection and Yes trachea midline Chest: Chest palpation & inspection: normal inspection of the chest Resp: Effort & Inspection: normal respiratory effort and able to speak in complete sentences Cardio: Jugular venous distension: no JVD GI: Inspection: Yes normal to inspection Palpation (GI): Tenderness to palpation present (GI) : General: Yes no CVA tenderness Back/Spine/Pelvis: Back: no CVA tenderness Skin: General skin exam: no rashes or lesions noted Neuro: General: patient oriented x3 Extrem: General: Yes normal to inspection and Yes full ROM Psych: Appearance: grossly normal Mental Status: mental status grossly normal Speech and movement: Normal speech and movement present and Clear speech present Affect: normal affect Attitude: cooperative Thought process: Normal thought process present Thought content: Normal thought content present Insight: Fair insight present (Psych) Judgement: Fair judgement present (Psych) Results Labs Result diagrams: 02/20/22 13:57 02/20/22 13:57 Labs: Abnormal lab results 02/21/22 Range/Units 11:24 POC Glucose 128 H (60-115) mg/dL Urine 02/20/22 Range/Units 23:16 Urine Color Yellow Urine Appearance Clear Urine pH 5.5 (5.0-9.0) Ur Specific [place] 1.010 (1.005-1.025) Urine Protein Negative (Neg-Trace) mg/dL Urine Glucose (UA) Negative (Negative) mg/dL All other labs normal. Imaging Abdomen CT scan report/results: report reviewed CT scan - pelvis: report reviewed Assessment and Plan (1) Adrenal mass greater than 4 cm in diameter: Status: Acute Plan MRI ordered to further assess adrenal mass found on CT abd & pelvis Discussed results with patient at bedside in ER. Patient agreeable to plan, all questions answered Will await MRI imaging to further assess, plan, and coordinate care Time Spent With Patient Time: Total time managing care of this patient today __35__ minutes. Procedures Date of Service Date of Service: 02/21/22
[2022-02-22] MEDS: HYDROmorphone HCl 1 MG/ML SYRINGE 0.5 MG IVPUSH ×3 (01:23→12:38)
[2022-02-22 03:12] VITALS: BP 117/61; PULSE 56; RESP 18; TEMP 36.7; O2SAT 5
--- NOTE | 2022-02-22 03:33 | CONS_ITS ---
DATE OF SERVICE: 02/21/2022 REFERRING PHYSICIAN: Sinan Cesar MD REASON FOR CONSULTATION: Abnormal CAT scan. HISTORY OF PRESENT ILLNESS: The patient is a pleasant 66-year-old woman, who was admitted to the hospital after presenting to the emergency department yesterday with complaints of abdominal pain and knee discomfort. She reports about 3 weeks of pain in the right-sided abdomen and flank without any GI symptoms. She has no rectal bleeding or change in her bowel habits. She has never undergone colonoscopy. She was evaluated with CT scanning of the abdomen and pelvis and laboratory studies. These are reviewed. Her CT scan shows a mass in the region of the right adrenal gland abutting the liver and upper pole of the right kidney, extending into the retrocaval and retroperitoneum and probably invading the IVC. She has been seen in consultation by Dr. Durbin, and has biopsy of the mass scheduled for tomorrow. Also noted on the imaging study was an equivocal finding in the rectosigmoid with possible wall thickening. This was suboptimally assessed due to underdistention and limitation of the windows of the study, which did not extend completely into the rectum. This is reviewed with Dr. Barragan. The patient has never undergone colonoscopy and has no changes in her bowel habits. She denies rectal bleeding. PAST MEDICAL HISTORY: 1. Cervical cancer with chemoradiation. 2. History of opiate abuse in the past. 3. Rheumatoid/osteoarthritis. 4. Osteopenia. CURRENT MEDICATIONS: Her current medication list is reviewed in the chart. ALLERGIES: BUPRENORPHINE. PAST SURGICAL HISTORY: Includes cholecystectomy, D and C, tonsillectomy, and appendectomy. REVIEW OF SYSTEMS: SKIN: No pruritus. HEENT: Negative. CARDIOPULMONARY: No shortness of breath or chest pain. GASTROINTESTINAL: As above. GENITOURINARY: Negative. NEUROPSYCHIATRIC: Negative. PHYSICAL EXAMINATION: GENERAL: Shows a pleasant female, sitting comfortably in bed. VITAL SIGNS: Reviewed in the electronic medical record and are stable. SKIN: Anicteric. HEENT: Shows no scleral icterus. NECK: Without lymphadenopathy or thyromegaly. LUNGS: Clear. HEART: Shows a regular rate and rhythm. S1, S2. No murmur. ABDOMEN: Soft without focal masses or tenderness. Bowel sounds are present. No organomegaly is noted. EXTREMITIES: Without edema. DATA: Laboratory studies and CT scanning are reviewed. IMPRESSION: Abnormal CT scan of the colon. The findings on the CT scan of the colon are equivocal and may just represent underdistention as she is asymptomatic. At this point, I would recommend elective outpatient colonoscopy as evaluation and biopsy of the adrenal lesion is more urgent. I discussed this with the patient. This can be arranged as an outpatient after her discharge. There does not appear to be any evidence for diverticulitis or colitis given her lack of symptoms. Thanks for asking me to see her. I will follow her in the hospital with you. MD DIRK Sandhu/AVELINO / [id number] MTDD
[2022-02-22] MEDS: 0.9 % Sodium Chloride Flush 3 ML SYRINGE IVFLUSH (07:08)
[2022-02-22] MEDS: Gabapentin 600 MG TABLET PO (07:11)
[2022-02-22 07:46] VITALS: BP 129/66; PULSE 63; RESP 16; TEMP 36.5; O2SAT 96
[2022-02-22] MEDS: LORazepam 1 MG TABLET PO ×2 (08:25→16:28)
--- NOTE | 2022-02-22 09:41 | P.DS_ITS ---
DS: Providers Provider Date of Service: 02/22/22 Date of admission: 02/21/22 09:08 Primary care physician: Dean Villalba MD Consults: 02/21/22 09:08 Consult to Gastroenterology Routine Consulting Provider: Kevin Nelson Reason for consultation: colon mass Has provider been notified: No Consult to Hematology / Oncology Routine Consulting Provider: Cheyenne Durbin Reason for consultation: adresnal, kindey and liver mass Has provider been notified: No 02/21/22 09:11 Consult to Urology Routine Consulting Provider: Luiz Golden Reason for consultation: adrenal and kidney mass Has provider been notified: No 02/21/22 09:13 Consult to Orthopedics Routine Consulting Provider: Matthew Enrique Reason for consultation: right large knee effusion with pain Has provider been notified: No DS: Diagnosis Discharge Diagnosis (1) Adrenal mass greater than 4 cm in diameter: Status: Acute (2) Abdominal mass, RUQ (right upper quadrant): Status: Acute DS: Summary Hospital Course Hospital Course: Chief Complaint: Abdominal pain 66 year old female with history of cervical cancer about 6 years ago status post chemo, rheumatoid arthritis, history of opiate abuse.? He she presented with abdominal pain that has been ongoing for weeks.? Patient relates that she has been having some pain on the right side of the abdomen that radiates somewhat to the back initially was intermittent and she tried to manage it with [id number] medication.? But about the last 4 or so weeks the pain has been intensifying and had seen her primary care physician and was recommended by symptomatic treatment only.? On this occasion she actually presented to the emergency room because her knee was bothering her and also complained that she was having this particular abdominal pain that was described.? A CT scan was subsequently done and showed the following findings. There is a new 6.2 cm mass centered in the region of the right adrenal gland with invasion into the upper right kidney, IVC and a large surface of contact with the posterior right hepatic lobe. Findings are suspicious for an adrenal gland malignancy such as cortical carcinoma, less likely a tumor of renal origin. ? Periportal, upper retroperitoneal and perirenal metastatic soft tissue nodules/lymph nodes. ? Equivocal wall thickening of the rectosigmoid colon, suboptimally assessed due to underdistention. Recommend clinical correlation for mild diverticulitis or colitis, and if not recently obtained evaluation with a colonoscopy. ? Questionable urinary bladder wall thickening, correlation with urinalysis could be obtained. ? Small volume of ascites and free fluid in the pelvis, nonspecific, malignant nature is not excluded. She has never had a colonoscopy done before. Hospital course: Patient was admitted in light of the adrenal mass and abdominal pain. Her pain was managed with IV morphine will be transitioned to oxycodone upon discharge. She was seen in consultation by Dr. Durbin from Oncology and she will need further workup including possible resection of the adrenal mass. Lab work in progress including testosterone of antral stone DHEA free cortisol random cortisol acth 17 hydroxy progesterone and metanephrines are pending... Biopsy to be done following the resolved. She will have a CT scan of the chest for further staging. She will ultimately see a specialist at [facility] for the mass to be resected as at this cannot be done. She will follow-up with Dr. Durbin on outpatient basis and and she will coordinate the care and management. Time Spent with Patient Time attestation: Total time managing care of this patient today ____ minutes. Discharge coordination time: Greater than 30 minutes Quality: Safe Use of Opioids Does Pt have an Active Cancer Diagnosis on the Problem List?: Yes Opioid Measure Date for [facility] Report: 02/28/22 Opioid Measure Time for [facility] Report: 07:53 Quality: Stroke Does the patient have a stroke diagnosis?: No Physical Exam Vital Signs: Vital Signs: Last Vital Signs Temp 97.7 F 02/22/22 07:46 Pulse 63 02/22/22 07:46 Resp 16 02/22/22 07:46 BP 129/66 02/22/22 07:46 Pulse Ox 96 02/22/22 07:46 O2 Del Method 02/22/22 07:46 BMI result Body Mass Index 25.1 DS: Data Data Completed and Pending Labs on day of discharge: Laboratory Results - last 24 hr 02/21/22 11:24 POC Glucose 128 H Discharge Plan Discharge Anticipated Discharge Date/Time: 02/22/22 09:35 Patient Disposition: Home Health Service Discharge Diagnosis: Right adrenal mass, abdominal pain Referrals: Cheyenne Durbin MD [Physician] - 1 Week Dean Villalba MD [Primary Care Provider] - 1 Week Discharge Medications: Continued alendronate 70 mg tablet 70 mg PO QWEEK Qty: 12 0RF lorazepam [Ativan] 1 mg tablet 1 tab PO Q8H PRN (Reason: Anxiety) diclofenac sodium [Arthritis Pain (diclofenac)] 1 % gel 2 g topical QID PRN (Reason: pain) Qty: 100 0RF Rx Instructions: apply to single elbow, wrist or hand; for hand includes palm/fingers/back of hand (DME) cane Device See Rx Instructions .Route Qty: 1 0RF Rx Instructions: As directed Humira(CF) Pen 40 mg/0.4 mL pen injector kit See Rx Instructions subcut .COMPLEX Qty: 2 1RF Rx Instructions: inject one - 40 mg/0.4 mL pen every 2 weeks subcut Discontinued oxycodone 5 mg tablet 5 mg PO Q6H PRN (Reason: pain) Qty: 20 0RF Rx Instructions: Partial Fill upon patient request. No Action sertraline 50 mg tablet 50 mg PO DAILY 90 Days Qty: 90 3RF celecoxib [Celebrex] 200 mg capsule 200 mg PO BID PRN (Reason: pain) 90 Days Qty: 180 3RF mirtazapine 15 mg tablet 15 mg PO DAILY 30 Days Qty: 30 0RF gabapentin 600 mg tablet 600 mg PO DAILY 30 Days Qty: 30 1RF morphine [MS Contin] 15 mg Tablet Extended Release 15 mg PO Q12H Qty: 60 0RF Rx Instructions: Partial Fill upon patient request. oxycodone 5 mg Tablet 5 mg PO Q6H PRN (Reason: Pain) Qty: 60 0RF Rx Instructions: Partial Fill upon patient request. Discharge Orders: Discharge Order (Routine); Ordered 02/22/22 Ordered By: Sinan Ceasr Diet: Advance to usual diet Activity on Discharge: As tolerated Stand Alone Forms: Patient Portal Discharge page Other Ambulatory Orders: CT biopsy renal RT (Routine) Timeframe: 1 Week Facility: [facility] - Location: CT Scan Ordered By: Cheyenne Durbin Care Plan Goals: Full workup and treatment of adrenal mass Health Concerns: Right adrenal mass with associated pain Plan of Treatment: Outpatient follow-up with adrenal mass specialist and follow up with Oncology (Dr. Durbin) Take oxycodone for pain. Follow up with Dr. Durbin Assessment: As above Discharge Date/Time: 02/22/22 16:56
[2022-02-22 09:52] LABS: Cortisol Random 1.8 ug/dL
[2022-02-22] MEDS: iohexoL 350 MG/ML 100 ML INFUS..BTL 65 ML IV (11:27)
--- NOTE | 2022-02-22 11:34 | MHC.HEMONCMA ---
Referral done in computer for endocrine with Dr. Wheatley, faxed over notes, test results, scans to [facility] Dr. London for reveiw stat consult.
--- NOTE | 2022-02-22 12:02 | MHC.CM.PN ---
CM ATTEMPTED TO MEET W/PT HOWEVER PT OFF UNIT FOR CT SCAN, CM TO REVISIT.
--- NOTE | 2022-02-22 14:25 | PM.EVENT ---
I have met with patient explain that she will need to meet with infant room teacher. A referral has been made to see Dr. Wheatley next week. She has also been referred to Dr. London at [facility]. Staging workup is pending. She was advised to follow up with Oncology upon discharge.
[2022-02-22 15:11] VITALS: BP 102/56; PULSE 75; RESP 18; TEMP 37.1; O2SAT 95
--- NOTE | 2022-02-22 15:32 | MHC.CM.PN ---
PT TO BE MEDICALLY CLEARED FRO D/C HOME NO SERVICES W/REFERRAL FOR [facility], ANTIC PT WILL NEED TRANSPORT HOME AND WILL SET PT UP W/LYFT VS CHAIRVAN.
--- NOTE | 2022-02-23 09:26 | MHC.HEMONCMA ---
Louisa London hotel assistant manager called with appt for consult for 02/26/22 at 3:40.
[2022-02-27 15:54] LABS: Adrenocorticotropic Hormone 5 pg/mL (6-50)
[2022-02-27 16:14] LABS: Metanephrine, Free <25 pg/mL (<=57); Normetanephrines, Free 68 pg/mL (<=148); Total Metanephrine, Free 68 pg/mL (<=205)
[2022-03-02 07:19] LABS: DHEA Sulfate <3 mcg/dL (9-118)
[2022-03-02 13:53] LABS: Testosterone, Total 4 ng/dL (2-45)
[2022-03-06 13:24] LABS: Androstenedione <10 ng/dL
[2022-03-11 17:44] LABS: Catecholamine Frac, Total 341 pg/mL
== END 2022-02-22 16:56 | disposition home health service (06) | DRG 424 ==
LOC: HO.ED 02-21 04:03 → HO.EDOVER 02-21 09:15 → HO.S3 02-21 18:59
PROVIDERS: Emergency Medicine Emergency Medical Services; Internal Medicine; Physician Assistant Medical; Admitting Provider Internal Medicine; Emergency Provider Emergency Medicine; PCP Family Medicine; Visit Provider Internal Medicine
DX: C74.91 Malignant neoplasm of unspecified part of right adrenal gland (principal); C77.2 Secondary and unspecified malignant neoplasm of intra-abdominal lymph nodes; C79.01 Secondary malignant neoplasm of right kidney and renal pelvis; M05.9 Rheumatoid arthritis with rheumatoid factor, unspecified; F11.11 Opioid abuse, in remission; Z85.41 Personal history of malignant neoplasm of cervix uteri; Z92.21 Personal history of antineoplastic chemotherapy; Z20.822 Contact with and (suspected) exposure to COVID-19; Z87.891 Personal history of nicotine dependence; Z79.52 Long term (current) use of systemic steroids; Z79.899 Other long term (current) drug therapy
CPT/HCPCS: 36415; 71260; 73564; 74177; 74183; 76700; 80053; 81003; 82024; 82077; 82088; 82157; 82384; 82530; 82533; 82627; 82947; 83498; 83690; 83735; 83835; 84403; 85025; 85610; 87635; 99285; A9585; J1170; Q9967

== ENCOUNTER → 2022-02-28 14:10 | Outpatient (BNVA) | payer MEDICAID, SELFPAY | PROVIDERS: PCP Family Medicine; Visit Provider Urology | DX: E27.8 Other specified disorders of adrenal gland (principal); R19.01 Right upper quadrant abdominal swelling, mass and lump | CPT/HCPCS: 99212 ==

== ENCOUNTER → 2022-03-02 09:49 | Outpatient (BNV) | payer MEDICAID, MEDICARE, SELFPAY | PROVIDERS: PCP Family Medicine; Visit Provider Internal Medicine | DX: C53.8 Malignant neoplasm of overlapping sites of cervix uteri (principal); D44.11 Neoplasm of uncertain behavior of right adrenal gland | CPT/HCPCS: 99213; 99214; 99215 ==

== ENCOUNTER 2022-03-08 08:40 | Day surgery (SDC) | payer MEDICAID, SELFPAY ==
[2022-03-08] VITALS (8 sets, daily range): BP systolic 96–115; BP diastolic 41–56; PULSE 65–71; RESP 12–18; TEMP 36.8–37; O2SAT 91–94; BMI 25.0
--- NOTE | ~2022-03-08 | CT_ITS ---
PROCEDURE: CT GUIDED BIOPSY, KIDNEY CLINICAL INFORMATION: Right adrenal cancer versus metastatic disease. COMPARISON: None TECHNIQUE: Following explaining CT fluoroscopy-guided right adrenal mass biopsy procedure, benefits and risks, a written consent was obtained. Patient was placed in the right lateral slightly semiprone position and preliminary CT imaging was obtained. An optimal site was selected and markers placed and repeat CT imaging performed. A marker was selected and marked on the skin. The area was prepped in a usual sterile manner with 2% chlorhexidine solution. Sterile precautions with sterile cap, gown, mask, gloves and a sterile drape was utilized during the exam. 1% lidocaine was injected at puncture site. Through a small skin incision a 20-gauge guide needle was advanced from the skin to the capsule of the right adrenal mass. Coaxially a 20-gauge guide was advanced and 5-pass core biopsy was obtained. Postprocedure, complete hemostasis achieved. Sterile Band-Aid applied postprocedure. Repeat CT imaging was obtained. Conscious sedation was utilized during the exam and patient monitored by IR nursing and radiologist. This CT examination was performed using dose optimization techniques as appropriate, variously including the following: *Automated exposure control *Adjustment of mA and/or kV according to patient size (this includes techniques or standardized protocols for targeted exams where dose is matched to indication/reason for exam; i.e. extremities or head) *Use of iterative reconstruction technique DLP: 408 mGy-cm FINDINGS: On preliminary CT imaging, there is a large right adrenal mass as was noted on the previous CT abdomen exam 02/21/2022. Several core samples were obtained and given to the pathologist. Core samples were inserted in alcohol solution to be reviewed by pathologist later. CT/CT biopsy renal RT IMPRESSION: Successful CT fluoroscopy-guided right adrenal mass biopsy performed. Conscious sedation was given and patient monitored for 15 minutes.
[2022-03-08 09:26] LABS: Basophils Percent Auto 0.6 % (0-2); Eosinophils Absolute Auto 0.1 X10*3/uL (0.0-0.4); Eosinophils Percent Auto 4.3 % (0-4); Hematocrit 36.4 % (37.0-47.0); Hemoglobin 11.3 g/dl (12.0-16.0); Imm Gran Abs Auto 0.01 X10*3/uL (0.00-0.03); Imm Gran Pct Auto 0.3 % (0.0-0.4); Lymphocytes Absolute Auto 1.4 X10*3/uL (1.2-4.9); MANUAL DIFF FLAG NO; Mean Corpuscular Hemoglobin 25.5 pg (27.0-33.0); Mean Corpuscular Volume 82.2 fL (80.0-98.0); Monocytes Absolute Auto 0.4 X10*3/uL (0.1-1.2); Monocytes Percent Auto 12.4 % (2-11); Neutrophils Absolute Auto 1.2 x10*3/uL (2.0-8.3); Neutrophils Percent Auto 38.4 % (45-73); Platelet Count 312 X10*3/uL (160-400); Red Blood Count 4.43 X10*6/uL (4.20-5.50); Red Cell Distribution Width 14.3 % (11.0-16.0); White Blood Count 3.2 X10*3/uL (4.8-10.8)
[2022-03-08 09:32] LABS: Prothrombin Time 11.5 SEC (10.0-13.1)
[2022-03-08 09:35] LABS: Partial Thromboplastin Time 38.1 SEC (26.0-36.4)
[2022-03-08 09:46] LABS: Anion Gap 12 (12-20); Blood Urea Nitrogen 6 mg/dL (9-16); Carbon Dioxide 28 mmol/L (22-29); Chloride 103 mmol/L (96-108); Creatinine Clr Calc Pharmacy 57.5; Estimated Glomerular Filt Rate > 60; Sodium 139 mmol/L (135-145)
== END 2022-03-08 14:57 | disposition home or self-care (01) ==
PROVIDERS: Pathology Anatomic Pathology & Clinical Pathology; Radiology Diagnostic Radiology; PCP Family Medicine; Visit Provider Radiology Diagnostic Radiology
DX: C79.71 Secondary malignant neoplasm of right adrenal gland (principal); Z85.41 Personal history of malignant neoplasm of cervix uteri; F11.10 Opioid abuse, uncomplicated; M81.0 Age-related osteoporosis without current pathological fracture; M05.9 Rheumatoid arthritis with rheumatoid factor, unspecified; G89.4 Chronic pain syndrome; Z79.899 Other long term (current) drug therapy; Z88.8 Allergy status to other drugs, medicaments and biological substances; Z87.891 Personal history of nicotine dependence
CPT/HCPCS: 36415; 50200; 77012; 80051; 81194; 81479; 82565; 84520; 85025; 85610; 85730; 88305; 88333; 88341; 88342; 88360; 99152; J2250; J3010

== ENCOUNTER 2022-05-15 09:50 | Day surgery (SDC) | payer MEDICARE, MEDICAID, SELFPAY ==
--- NOTE | 2022-05-14 12:40 | HO.ANESPROP2 ---
Documented by User: Maricruz Orozco NP 05/14/22 12:43 HPI - Anesthesia Eval Consult details Narrative: 67yo F for Upper Endoscopy Adrenal CA, chronic opioids (oxy, MS contin) PMFSH Active Problems Active Problems: All Active Problems (Updated 04/27/22 @ 14:26 by Cheyenne Durbin MD) Squamous cell carcinoma of cervix (Acute) Nausea and vomiting (Acute) Screening for colon cancer (Acute) Breast cancer screening by mammogram (Acute) Adult general medical exam (Acute) Adrenal mass greater than 4 cm in diameter (Acute) Abdominal mass, RUQ (right upper quadrant) (Acute) Complex regional pain syndrome i of lower limb, bilateral (Acute) UTI (urinary tract infection) (Acute) Dysuria (Acute) Anxiety with depression (Acute) Opiate abuse, episodic (Acute) Laboratory exam ordered as part of routine general medical examination (Acute) Osteoarthritis of knees, bilateral (Acute) Toe pain (Acute) Osteoporosis (Acute) Chronic pain syndrome (Acute) Physical exam (Acute) Osteoarthritis of both knees (Acute) Primary osteoarthritis of knees, bilateral (Acute) Osteopenia determined by x-ray (Acute) Seropositive rheumatoid arthritis (Acute) Back pain (Acute) Past Medical History Medical History Back pain Cervical cancer Opiate abuse, episodic Osteoarthritis of both knees Osteopenia determined by x-ray Primary osteoarthritis of knees, bilateral Seropositive rheumatoid arthritis Family History Family History Father Acute CVA (cerebrovascular accident) Mother Hypertension Hypercholesterolemia Brother Liver transplant status Family history of thyroid problem Surgical History Surgical History History of appendectomy History of cholecystectomy History of D&C History of tonsillectomy Social History Social History Household Members: Children Housing: House Are you a primary care management coordinator to a significant other at home: Yes (mom) Do you presently have visiting nurse or other home services: No Alcohol intake: never Patient Tobacco Use Status: Former Tobacco user Quit Date: 2016 Tobacco use type: Cigarette e-Cigarette/Vaping Use: Never Used Second Hand Smoke Exposure: No Are you DNR?: No Advance Directives: No Advance Directives Information Provided: Yes Nutrition Risks: No Nutritional Risk service: No Current occupational status: employed and 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 Cognitive needs: No Hearing needs: No Vision needs: Yes Meds Allergies Allergy/AdvReac Type Severity Reaction Status Date / Time buprenorphine [Belbuca] Allergy Intermediate nausea Verified 04/04/22 16:03 Exam Exam Date and Time: May 14, 2022 1240 Pertinent Lab Results Pertinent Lab Results: Laboratory Tests 05/02/22 05/02/22 13:54 13:54 WBC 7.2 Hgb 10.3 L Hct 32.1 L Plt Count 470 H D Sodium 140 Potassium 4.3 Chloride 103 Carbon Dioxide 30 H BUN 10 Creatinine 0.81 Narrative Narrative: EKG 04/2022 NSR @ [address] Assessment and Plan Assessment Anesthesia Assessment: Chart Reviewed Documented by User: Erick Estevez MD 05/15/22 11:01 PMFSH Past Medical History Medical History Back pain Cervical cancer Opiate abuse, episodic Osteoarthritis of both knees Osteopenia determined by x-ray Primary osteoarthritis of knees, bilateral Seropositive rheumatoid arthritis Family History Family History Father Acute CVA (cerebrovascular accident) Mother Hypertension Hypercholesterolemia Brother Liver transplant status Family history of thyroid problem Family history of problems with anesthesia: No Surgical History Surgical History History of appendectomy History of cholecystectomy History of D&C History of tonsillectomy History of Problems with Anesthesia: No Social History Social History Household Members: Children Housing: House Are you a primary care management coordinator to a significant other at home: Yes (mom) Do you presently have visiting nurse or other home services: No Alcohol intake: never Patient Tobacco Use Status: Former Tobacco user Quit Date: 2016 Tobacco use type: Cigarette e-Cigarette/Vaping Use: Never Used Second Hand Smoke Exposure: No Are you DNR?: No Advance Directives: No Advance Directives Information Provided: Yes Nutrition Risks: No Nutritional Risk service: No Current occupational status: employed and 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 Cognitive needs: No Hearing needs: No Vision needs: Yes Meds Allergies Allergy/AdvReac Type Severity Reaction Status Date / Time buprenorphine [Belbuca] Allergy Intermediate nausea Verified 04/04/22 16:03 Exam Airway Mallampati Class: I TM Dist: >3cm Neck ROM: Full Denture: Upper and Lower Heart: ok Lungs: ok Assessment and Plan Assessment Anesthesia Assessment: Anesthesia Plan Discussed Final Anesthetic Review Family History of Problems with Anesthesia: No History of Problems with Anesthesia: No NPO: Yes ASA Class: III Final Preanesthetic Review: No Changes in Pt Med Stat, Meds/Allgs Chart Reviewed, Consent Obtained/Reviewed and Anes Risks/Benef Reviewed Patient Risk: Intermediate Procedure Risk: Intermediate Anesthetic Plan Anesthetic Plan: MAC: and Agree w/ Assess. and Plan Disposition: Standard PACU
[2022-05-15] MEDS: Lactated Ringers 1,000 ML 100 ML IVCONT (10:07)
[2022-05-15 10:15] VITALS: BMI 23.1
[2022-05-15 10:24] VITALS: BP 120/67; PULSE 80; RESP 18; TEMP 36.6; O2SAT 96
--- NOTE | 2022-05-15 10:52 | MHC.SHP ---
Pre-Procedural Eval Section A Date of Service: 05/15/22 The patient is an INPATIENT: No Changes since office visit: No Cold of Flu in the past 2 weeks, No New Medical Problems, No Changes in Medication and No Patient answered all questions The History & Physical has been completed within 30 days and I have reviewed it.: Yes Section B Chief Complaint: Abnormal results of function studies of other orga Allergies: Allergies Allergy/AdvReac Type Severity Reaction Status Date / Time buprenorphine [Belbuca] Allergy Intermediate nausea Verified 04/04/22 16:03 Plan I have reviewed the history and physical and performed a pertinent physical examination on my patient. No changes have occurred unless specified. Time Spent With Patient Time: Total time managing care of this patient today ____ minutes.
[2022-05-15 11:26] VITALS: BP 87/43; PULSE 65; RESP 14; TEMP 36.5; O2SAT 94
[2022-05-15 11:41] VITALS: BP 104/53; PULSE 65; RESP 14; TEMP 36.8; O2SAT 97
--- NOTE | 2022-05-15 12:28 | OP_ITS ---
SURGEON: Jaciel Ruby MD INDICATIONS: Abnormal PET scan of the esophagus. PREOPERATIVE DIAGNOSIS: POSTOPERATIVE DIAGNOSIS: PROCEDURE PERFORMED: ESTIMATED BLOOD LOSS: COMPLICATIONS: ANESTHESIA: Monitored anesthesia care. ASSISTANTS: SPECIMENS: DESCRIPTION OF PROCEDURE: The procedure was performed on 05/15/2022. History and physical was performed. The risks and benefits of procedure were explained to the patient. Informed consent was obtained. The patient was placed in the left lateral decubitus position. The Olympus video gastroscope was introduced into the esophagus, stomach, and duodenum. Examination was performed. The scope was removed. She tolerated the procedure well and was returned to the recovery area in stable condition. FINDINGS: Esophagus: The esophagus was normal. No tumor was identified. The mucosa appeared normal. Biopsies were obtained at 25 cm in the midesophagus. Stomach: The stomach showed some mild nonspecific erythema but was otherwise normal. No mass, lesion, or ulceration was identified. Duodenum: The bulb and 2nd portion were normal. IMPRESSION: Normal upper endoscopy. RECOMMENDATION: Follow up the biopsy results. MD DIRK Sandhu/MODL / [id number]
== END 2022-05-15 12:28 | disposition home or self-care (01) ==
PROVIDERS: PCP Family Medicine; Visit Provider Internal Medicine Gastroenterology
PROC: 0DJ08ZZ Inspection of Upper Intestinal Tract, Via Natural or Artificial Opening Endoscopic (ICD-10-PCS; CPT 43235; principal; 2022-05-15 10:40)
DX: R93.3 Abnormal findings on diagnostic imaging of other parts of digestive tract (principal); K20.90 Esophagitis, unspecified without bleeding; C79.70 Secondary malignant neoplasm of unspecified adrenal gland; Z85.41 Personal history of malignant neoplasm of cervix uteri; Z92.21 Personal history of antineoplastic chemotherapy
CPT/HCPCS: 43239; 88305; 88312; J3010

== ENCOUNTER 2022-05-16 15:16 | Outpatient (REF) | payer MEDICARE, MEDICAID, SELFPAY ==
[2022-05-17 12:09] LABS: Appearance Urine Turbid; Color Urine Dark Yellow; Glucose Urine UA Negative (Negative); Leukocyte Esterase Urine Moderate (2+) (Negative); Nitrite Urine Negative (Negative); PH 5.5 (5.0-9.0); UMIC TRIGGER UA YES; Urine Blood Large (3+) (Negative); Urine Ketones Negative (Negative); Urine Protein 300 (3+) mg/dL (Neg-Trace)
[2022-05-17 12:13] LABS: Bacteria Urine None Seen (None Seen); Hyaline Casts Urine 0-2 /LPF (0-2); RBC Urine >20 /HPF (0-2); Squamous Epithelial Cell Urine 0-2 /HPF (0-2); WBC Urine >50 /HPF (0-5)
== END 2022-05-16 15:17 | disposition home or self-care (01) ==
LOC: HO.LAB 15:16
PROVIDERS: Visit Provider Family Medicine
DX: N39.0 Urinary tract infection, site not specified (principal)
CPT/HCPCS: 81001; 81003; 87086; 87088; 87186

== ENCOUNTER 2022-05-23 14:35 | Emergency (ER) | payer MEDICARE, MEDICAID, SELFPAY ==
--- NOTE | ~2022-05-23 | XR_ITS ---
EXAMINATION: XR CHEST CLINICAL INFORMATION: Weakness COMPARISON: 02/22/2022 TECHNIQUE: Frontal view of the chest was obtained. FINDINGS: The lungs are well expanded. There is no focal consolidation, edema, or effusion. No pneumothorax. The cardiomediastinal silhouette is within normal limits. No acute osseous abnormality. XR/XR chest 1V IMPRESSION: No acute pulmonary disease.
--- NOTE | 2022-05-23 14:54 | ED_ITS ---
HPI - General Adult General Chief complaint: General Medical <FREDO Sanon - Last Filed: 05/23/22 15:01> Stated complaint: Medication refill? Chemo pt not feeling well <FREDO Sanon - Last Filed: 05/23/22 15:01> Time Seen by Provider: 05/23/22 16:32 <FREDO Sanon - Last Filed: 05/23/22 15:01> Source: patient <Alejandro Kidd MD - Last Filed: 05/23/22 21:17> Mode of arrival: ambulatory <Alejandro Kidd MD - Last Filed: 05/23/22 21:17> Limitations: no limitations <Alejandro Kidd MD - Last Filed: 05/23/22 21:17> History of Present Illness HPI narrative: PATIENT 67 YEARS OLD WITH HISTORY OF POORLY DIFFERENTIATED SQUAMOUS CELL CARCINOMA METASTATIC CERVICAL CANCER 02/2022 CHRONIC RIGHT FLANK PAIN LARGE ADRENAL MASS ON MULTIPLE PAIN MEDICATION OXYCODONE/MORPHINE/GABAPENTIN COMES HERE SHE HAS RAN OUT OF HER MEDICATIONS EARLIER SUPPOSED TO LAST TILL 05/29 BUT SHE FINISHED HER MEDICATION 3 DAYS AGO SEE THE PRESCRIPTION AT PHARMACY BUT NOT DUE TILL ALSO PATIENT COMPLAINING OF CHRONIC DIARRHEA NAUSEA <Alejandro Kidd MD - Last Filed: 05/23/22 21:17> Related Data Home medications: Previous Rx's Medication Instructions Recorded cane #1 ea 08/18/21 diclofenac sodium 1 % topical gel 2 g topical QID PRN pain #100 grams 08/18/21 (Arthritis Pain (diclofenac)) alendronate 70 mg tablet 70 mg PO QWEEK #12 tabs 11/01/21 adalimumab 40 mg/0.4 mL See Rx Instructions subcut 11/09/21 subcutaneous pen kit (Humira(CF) .COMPLEX #2 ea Pen) sertraline 50 mg tablet 50 mg PO DAILY 90 days #90 tabs 02/27/22 gabapentin 600 mg tablet 600 mg PO DAILY 30 days #30 tabs 03/26/22 mirtazapine 15 mg tablet 15 mg PO DAILY 30 days #30 tabs 03/26/22 dexamethasone 4 mg tablet 4 mg PO BID #30 tabs 04/06/22 ondansetron 8 mg oral soluble film 8 mg PO Q8H PRN Nausea #60 ea 04/06/22 lorazepam 1 mg tablet (Ativan) 1.5 mg PO Q8H PRN Anxiety 30 days 04/25/22 #135 tabs amoxicillin 500 mg tablet 500 mg PO Q12H 10 days #20 tabs 05/16/22 food supplemt, lactose-reduced 1 ea PO DAILY 90 days #21,330 mL 05/16/22 (Ensure oral liquid) meclizine 12.5 mg tablet 12.5 mg PO DAILY PRN dizziness 30 05/16/22 days #14 tabs diaper,brief,adult,disposable #60 ea 05/20/22 ([facility] Adult Brief) sulfamethoxazole 800 1 tab PO Q12H 5 days #10 tabs 05/20/22 mg-trimethoprim 160 mg tablet (Bactrim DS) morphine 30 mg tablet,extended 30 mg PO Q12H #60 tabs 05/22/22 release (MS Contin) oxycodone 5 mg tablet 5 mg PO Q6H PRN Pain #60 tabs 05/22/22 <FREDO Sanon - Last Filed: 05/23/22 15:01> Allergies/adverse reactions: Allergies Allergy/AdvReac Type Severity Reaction Status Date / Time buprenorphine [Belbuca] Allergy Intermediate nausea Verified 05/23/22 14:55 <FREDO Sanon - Last Filed: 05/23/22 15:01> Review of Systems Review of Systems: Yes all other systems are reviewed and are negative <Alejandro Kidd MD - Last Filed: 05/23/22 21:17> [facility] Past Medical History Medical History: Medical History Back pain Cervical cancer Opiate abuse, episodic Osteoarthritis of both knees Osteopenia determined by x-ray Primary osteoarthritis of knees, bilateral Seropositive rheumatoid arthritis <FREDO Sanon - Last Filed: 05/23/22 15:01> Surgical History: Surgical History History of appendectomy History of cholecystectomy History of D&C History of tonsillectomy <FREDO Sanon - Last Filed: 05/23/22 15:01> Family History Family History: Family History Father Acute CVA (cerebrovascular accident) Mother Hypertension Hypercholesterolemia Brother Liver transplant status Family history of thyroid problem <FREDO Sanon - Last Filed: 05/23/22 15:01> Social History Social History: Social History Household Members: Children Housing: House 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 Cognitive needs: No Hearing needs: No Vision needs: Yes <FREDO Sanon - Last Filed: 05/23/22 15:01> Physical Exam ED Vital Signs: Vital Signs - 24 hr 05/23/22 14:55 05/23/22 18:14 Temperature 97.6 F Pulse Rate 84 78 Respiratory Rate 16 18 Blood Pressure 103/78 113/75 Pulse Oximetry 97 96 Oxygen Delivery Method Room Air Room Air BMI result Body Mass Index 29.7 <FREDO Sanon - Last Filed: 05/23/22 15:01> Vital Signs - 24 hr 05/23/22 14:55 05/23/22 18:14 Temperature 97.6 F Pulse Rate 84 78 Respiratory Rate 16 18 Blood Pressure 103/78 113/75 Pulse Oximetry 97 96 Oxygen Delivery Method Room Air Room Air BMI result Body Mass Index 29.7 <Alejandro Kidd MD - Last Filed: 05/23/22 21:17> APPEARANCE: ALERT. ORIENTED X3. NO ACUTE DISTRESS. EYES: PERRLA, NO NYSTAGMUS ENT: PHARYNX NORMAL. ORAL MUCOSA MOIST NECK: NORMAL INSPECTION. NECK SUPPLE. CVS: NORMAL HEART RATE AND RHYTHM. PULSES NORMAL. RESPIRATORY: NO RESPIRATORY DISTRESS. EQUAL AIR ENTRY BILATERAL, NO WHEEZING/RALES/RHONCHI ABDOMEN: SOFT DIFFUSE TENDERNESS NO REBOUND TENDERNESS OR GUARDING. BOWEL SOUNDS ARE PRESENT, NO MASS PALPABLE, NO CVA TENDERNESS SKIN: SKIN WARM AND DRY. NORMAL SKIN COLOR. NORMAL SKIN TURGOR. EXTREMITIES: NO LOWER EXTREMITY EDEMA. NO CALF TENDERNESS NEURO: ORIENTED X 3. NO MOTOR DEFICIT. <Alejandro Kidd MD - Last Filed: 05/23/22 21:17> Course Course Course Narrative: RME--67yo F w/PMHx large adrenal mass & cervical CA on chemo, RA, OA, Opiate abuse presenting to the ED c/o generalized weakness, lightheadedness, diarrhea x few days. States has been out of her Oxycodone, Morphine and Ativan is worsening her sx, states her doctor will not refill until Sat. EKG, labs, UA, CXR, orthos ordered <FREDO Sanon - Last Filed: 05/23/22 15:01> Medications Administered Discontinued Medications Generic Name Dose Route Start Last Admin Trade Name Freq PRN Reason Stop Dose Admin Loperamide HCl 4 mg 05/23/22 16:48 05/23/22 17:21 Loperamide Hcl 2 Mg Capsule PO 05/23/22 16:49 4 mg ONCE ONE Administration Ondansetron HCl 4 mg 05/23/22 16:48 05/23/22 17:21 Ondansetron Odt 4 Mg Tab.Rapdis TRANSLINGU 05/23/22 16:49 4 mg ONCE ONE Administration Oxycodone HCl 10 mg 05/23/22 16:46 05/23/22 17:20 Oxycodone Hcl Immed Release 5 Mg Tablet PO 05/23/22 16:47 10 mg ONCE ONE Administration <FREDO Sanon - Last Filed: 05/23/22 15:01> Medications Administered Discontinued Medications Generic Name Dose Route Start Last Admin Trade Name Freq PRN Reason Stop Dose Admin Loperamide HCl 4 mg 05/23/22 16:48 05/23/22 17:21 Loperamide Hcl 2 Mg Capsule PO 05/23/22 16:49 4 mg ONCE ONE Administration Ondansetron HCl 4 mg 05/23/22 16:48 05/23/22 17:21 Ondansetron Odt 4 Mg Tab.Rapdis TRANSLINGU 05/23/22 16:49 4 mg ONCE ONE Administration Oxycodone HCl 10 mg 05/23/22 16:46 05/23/22 17:20 Oxycodone Hcl Immed Release 5 Mg Tablet PO 05/23/22 16:47 10 mg ONCE ONE Administration <Alejandro Kidd MD - Last Filed: 05/23/22 21:17> Medical Decision Making Medical Decision Making [facility] Narrative: Patient on chronic pain management opiate abuse came as she finished the medication 1 week earlier will give 1 dose of oxycodone Imodium for chronic diarrhea vitals are stable labs are stable advised to follow-up with oncologist and PCP <Alejandro Kidd MD - Last Filed: 05/23/22 21:17> Lab Data [facility] Lab Attestation statement: I reviewed the patient's lab results. <Alejandro Kidd MD - Last Filed: 05/23/22 21:17> Result Diagrams: 05/23/22 15:31 05/23/22 15:31 <FREDO Sanon - Last Filed: 05/23/22 15:01> Labs: Lab Results 05/23/22 05/23/22 05/23/22 Range/Units 15:31 15:31 15:31 WBC 5.8 (4.8-10.8) X10*3/uL RBC 4.27 (4.20-5.50) X10*6/uL Hgb 10.5 L (12.0-16.0) g/dl Hct 33.8 L (37.0-47.0) % MCV 79.2 L (80.0-98.0) fL MCH 24.6 L (27.0-33.0) pg MCHC 31.1 (31.0-35.0) g/dl RDW 14.9 (11.0-16.0) % Plt Count 435 H (160-400) X10*3/uL MPV 9.1 L (9.4-12.3) fL Immature Gran % (Auto) 0.3 (0.0-0.4) % Neut % (Auto) 81.5 H (45-73) % Lymph % (Auto) 12.1 L (20-40) % [place] % (Auto) 5.0 (2-11) % Eos % (Auto) 0.2 (0-4) % Baso % (Auto) 0.9 (0-2) % Lymph # (Auto) 0.7 L (1.2-4.9) X10*3/uL [place] # (Auto) 0.3 (0.1-1.2) X10*3/uL Eos # (Auto) 0.0 (0.0-0.4) X10*3/uL Baso # (Auto) 0.1 (0.0-0.2) X10*3/uL Abs Immat Gran (auto) 0.02 (0.00-0.03) X10*3/uL Absolute Neuts (auto) 4.7 (2.0-8.3) x10*3/uL Absolute Nucleated RBC 0.000 (0.0-0.012) X10*3/uL Nucleated RBC % (auto) 0.0 (0.0-0.2) /100WBC PT 12.8 (10.0-13.1) SEC INR 1.1 (0.9-1.1) Sodium 143 (135-145) mmol/L Potassium 4.3 (3.3-5.1) mmol/L Chloride 107 (96-108) mmol/L Carbon Dioxide 25 (22-29) mmol/L Anion Gap 15 (12-20) BUN 7 L (9-16) mg/dL Creatinine 0.81 (0.5-1.4) mg/dL Estim Creat Clear Calc 78.0 Estimated GFR > 60 Random Glucose 137 H (60-115) mg/dL Calcium 9.0 (8.4-10.2) mg/dL Magnesium 2.2 (1.6-2.6) mg/dL Total Bilirubin 0.4 (0.0-1.0) mg/dL Direct Bilirubin < 0.2 (0.0-0.5) mg/dL AST 19 (5-31) U/L ALT 9 (0-31) U/L Alkaline Phosphatase 135 H (39-117) U/L Troponin I High Sens (<3.5-17.0) ng/L B-Natriuretic Peptide (<100) pg/mL Total Protein 7.0 (6.5-8.0) g/dL Albumin 3.7 (3.5-5.0) g/dL Lipase 24 (8-78) U/L Influenza Type A (PCR) (Negative) Influenza Type B (PCR) (Negative) RSV RNA Qual (PCR) (Negative) SARS-CoV-2 RNA (RT-PCR) (Negative) 05/23/22 05/23/22 05/23/22 Range/Units 15:31 15:31 15:31 WBC (4.8-10.8) X10*3/uL RBC (4.20-5.50) X10*6/uL Hgb (12.0-16.0) g/dl Hct (37.0-47.0) % MCV (80.0-98.0) fL MCH (27.0-33.0) pg MCHC (31.0-35.0) g/dl RDW (11.0-16.0) % Plt Count (160-400) X10*3/uL MPV (9.4-12.3) fL Immature Gran % (Auto) (0.0-0.4) % Neut % (Auto) (45-73) % Lymph % (Auto) (20-40) % [place]go % (Auto) (2-11) % Eos % (Auto) (0-4) % Baso % (Auto) (0-2) % Lymph # (Auto) (1.2-4.9) X10*3/uL [place] # (Auto) (0.1-1.2) X10*3/uL Eos # (Auto) (0.0-0.4) X10*3/uL Baso # (Auto) (0.0-0.2) X10*3/uL Abs Immat Gran (auto) (0.00-0.03) X10*3/uL Absolute Neuts (auto) (2.0-8.3) x10*3/uL Absolute Nucleated RBC (0.0-0.012) X10*3/uL Nucleated RBC % (auto) (0.0-0.2) /100WBC PT (10.0-13.1) SEC INR (0.9-1.1) Sodium (135-145) mmol/L Potassium (3.3-5.1) mmol/L Chloride (96-108) mmol/L Carbon Dioxide (22-29) mmol/L Anion Gap (12-20) BUN (9-16) mg/dL Creatinine (0.5-1.4) mg/dL Estim Creat Clear Calc Estimated GFR Random Glucose (60-115) mg/dL Calcium (8.4-10.2) mg/dL Magnesium (1.6-2.6) mg/dL Total Bilirubin (0.0-1.0) mg/dL Direct Bilirubin (0.0-0.5) mg/dL AST (5-31) U/L ALT (0-31) U/L Alkaline Phosphatase (39-117) U/L Troponin I High Sens < 3.5 (<3.5-17.0) ng/L B-Natriuretic Peptide 51 (<100) pg/mL Total Protein (6.5-8.0) g/dL Albumin (3.5-5.0) g/dL Lipase (8-78) U/L Influenza Type A (PCR) NEGATIVE (Negative) Influenza Type B (PCR) NEGATIVE (Negative) RSV RNA Qual (PCR) NEGATIVE (Negative) SARS-CoV-2 RNA (RT-PCR) NEGATIVE (Negative) <FREDO Sanon - Last Filed: 05/23/22 15:01> Lab Results 05/23/22 05/23/22 05/23/22 Range/Units 15:31 15:31 15:31 WBC 5.8 (4.8-10.8) X10*3/uL RBC 4.27 (4.20-5.50) X10*6/uL Hgb 10.5 L (12.0-16.0) g/dl Hct 33.8 L (37.0-47.0) % MCV 79.2 L (80.0-98.0) fL MCH 24.6 L (27.0-33.0) pg MCHC 31.1 (31.0-35.0) g/dl RDW 14.9 (11.0-16.0) % Plt Count 435 H (160-400) X10*3/uL MPV 9.1 L (9.4-12.3) fL Immature Gran % (Auto) 0.3 (0.0-0.4) % Neut % (Auto) 81.5 H (45-73) % Lymph % (Auto) 12.1 L (20-40) % [place]go % (Auto) 5.0 (2-11) % Eos % (Auto) 0.2 (0-4) % Baso % (Auto) 0.9 (0-2) % Lymph # (Auto) 0.7 L (1.2-4.9) X10*3/uL [place] # (Auto) 0.3 (0.1-1.2) X10*3/uL Eos # (Auto) 0.0 (0.0-0.4) X10*3/uL Baso # (Auto) 0.1 (0.0-0.2) X10*3/uL Abs Immat Gran (auto) 0.02 (0.00-0.03) X10*3/uL Absolute Neuts (auto) 4.7 (2.0-8.3) x10*3/uL Absolute Nucleated RBC 0.000 (0.0-0.012) X10*3/uL Nucleated RBC % (auto) 0.0 (0.0-0.2) /100WBC PT 12.8 (10.0-13.1) SEC INR 1.1 (0.9-1.1) Sodium 143 (135-145) mmol/L Potassium 4.3 (3.3-5.1) mmol/L Chloride 107 (96-108) mmol/L Carbon Dioxide 25 (22-29) mmol/L Anion Gap 15 (12-20) BUN 7 L (9-16) mg/dL Creatinine 0.81 (0.5-1.4) mg/dL Estim Creat Clear Calc 78.0 Estimated GFR > 60 Random Glucose 137 H (60-115) mg/dL Calcium 9.0 (8.4-10.2) mg/dL Magnesium 2.2 (1.6-2.6) mg/dL Total Bilirubin 0.4 (0.0-1.0) mg/dL Direct Bilirubin < 0.2 (0.0-0.5) mg/dL AST 19 (5-31) U/L ALT 9 (0-31) U/L Alkaline Phosphatase 135 H (39-117) U/L Troponin I High Sens (<3.5-17.0) ng/L B-Natriuretic Peptide (<100) pg/mL Total Protein 7.0 (6.5-8.0) g/dL Albumin 3.7 (3.5-5.0) g/dL Lipase 24 (8-78) U/L Influenza Type A (PCR) (Negative) Influenza Type B (PCR) (Negative) RSV RNA Qual (PCR) (Negative) SARS-CoV-2 RNA (RT-PCR) (Negative) 05/23/22 05/23/22 05/23/22 Range/Units 15:31 15:31 15:31 WBC (4.8-10.8) X10*3/uL RBC (4.20-5.50) X10*6/uL Hgb (12.0-16.0) g/dl Hct (37.0-47.0) % MCV (80.0-98.0) fL MCH (27.0-33.0) pg MCHC (31.0-35.0) g/dl RDW (11.0-16.0) % Plt Count (160-400) X10*3/uL MPV (9.4-12.3) fL Immature Gran % (Auto) (0.0-0.4) % Neut % (Auto) (45-73) % Lymph % (Auto) (20-40) % [place] % (Auto) (2-11) % Eos % (Auto) (0-4) % Baso % (Auto) (0-2) % Lymph # (Auto) (1.2-4.9) X10*3/uL [place] # (Auto) (0.1-1.2) X10*3/uL Eos # (Auto) (0.0-0.4) X10*3/uL Baso # (Auto) (0.0-0.2) X10*3/uL Abs Immat Gran (auto) (0.00-0.03) X10*3/uL Absolute Neuts (auto) (2.0-8.3) x10*3/uL Absolute Nucleated RBC (0.0-0.012) X10*3/uL Nucleated RBC % (auto) (0.0-0.2) /100WBC PT (10.0-13.1) SEC INR (0.9-1.1) Sodium (135-145) mmol/L Potassium (3.3-5.1) mmol/L Chloride (96-108) mmol/L Carbon Dioxide (22-29) mmol/L Anion Gap (12-20) BUN (9-16) mg/dL Creatinine (0.5-1.4) mg/dL Estim Creat Clear Calc Estimated GFR Random Glucose (60-115) mg/dL Calcium (8.4-10.2) mg/dL Magnesium (1.6-2.6) mg/dL Total Bilirubin (0.0-1.0) mg/dL Direct Bilirubin (0.0-0.5) mg/dL AST (5-31) U/L ALT (0-31) U/L Alkaline Phosphatase (39-117) U/L Troponin I High Sens < 3.5 (<3.5-17.0) ng/L B-Natriuretic Peptide 51 (<100) pg/mL Total Protein (6.5-8.0) g/dL Albumin (3.5-5.0) g/dL Lipase (8-78) U/L Influenza Type A (PCR) NEGATIVE (Negative) Influenza Type B (PCR) NEGATIVE (Negative) RSV RNA Qual (PCR) NEGATIVE (Negative) SARS-CoV-2 RNA (RT-PCR) NEGATIVE (Negative) <Alejandro Kidd MD - Last Filed: 05/23/22 21:17> Discharge Plan Discharge Clinical Impression: Chronic pain due to neoplasm <FREDO Sanon - Last Filed: 05/23/22 15:01> Patient Disposition: Home, Self-Care <FREDO Sanon - Last Filed: 05/23/22 15:01> Instructions: Chronic Pain (ED) <FREDO Sanon - Last Filed: 05/23/22 15:01> Additional Instructions: Follow-up with your oncologist/PCP for medication for the pain Do not take medication over the dose prescribed <FREDO Sanon - Last Filed: 05/23/22 15:01> Prescriptions: No Action alendronate 70 mg tablet 70 mg PO QWEEK Qty: 12 0RF sertraline 50 mg tablet 50 mg PO DAILY 90 Days Qty: 90 3RF mirtazapine 15 mg tablet 15 mg PO DAILY 30 Days Qty: 30 0RF gabapentin 600 mg tablet 600 mg PO DAILY 30 Days Qty: 30 1RF lorazepam [Ativan] 1 mg tablet 1.5 mg PO Q8H PRN (Reason: Anxiety) 30 Days Qty: 135 0RF Rx Instructions: [facility] verified. Partial refill upon request. (DME) [facility] Adult Brief Misc See Rx Instructions .Route Qty: 60 2RF Rx Instructions: 2 daily As directed, 30 days sulfamethoxazole-trimethoprim [Bactrim DS] 800-160 mg tablet 1 tab PO Q12H 5 Days Qty: 10 0RF dexamethasone 4 mg Tablet 4 mg PO BID Qty: 30 3RF Rx Instructions: For 2 days after chemotherapy ondansetron 8 mg Film 8 mg PO Q8H PRN (Reason: Nausea) Qty: 60 3RF morphine [MS Contin] 30 mg Tablet Extended Release 30 mg PO Q12H Qty: 60 0RF Rx Instructions: Partial Fill upon patient request. oxycodone 5 mg Tablet 5 mg PO Q6H PRN (Reason: Pain) Qty: 60 0RF Rx Instructions: Partial Fill upon patient request. diclofenac sodium [Arthritis Pain (diclofenac)] 1 % gel 2 g topical QID PRN (Reason: pain) Qty: 100 0RF Rx Instructions: apply to single elbow, wrist or hand; for hand includes palm/fingers/back of hand (DME) cane Device See Rx Instructions .Route Qty: 1 0RF Rx Instructions: As directed meclizine 12.5 mg tablet 12.5 mg PO DAILY PRN (Reason: dizziness) 30 Days Qty: 14 0RF amoxicillin 500 mg tablet 500 mg PO Q12H 10 Days Qty: 20 0RF Ensure Liquid 1 ea PO DAILY 90 Days Qty: 00781 3RF Rx Instructions: Pushpa Tomas(CF) Pen 40 mg/0.4 mL pen injector kit See Rx Instructions subcut .COMPLEX Qty: 2 1RF Rx Instructions: inject one - 40 mg/0.4 mL pen every 2 weeks subcut <FREDO Sanon - Last Filed: 05/23/22 15:01> Interventions: ED Discharge Assessment Last Done: 05/23/22 18:16 <FREDO Sanon - Last Filed: 05/23/22 15:01> Discharge Date/Time: 05/23/22 18:18 <FREDO Sanon - Last Filed: 05/23/22 15:01>
[2022-05-23 14:55] VITALS: BP 103/78; PULSE 84; RESP 16; TEMP 36.4; O2SAT 97; BMI 29.7
--- NOTE | 2022-05-23 14:59 | ECG_ITS ---
Test Reason : WEAKNESS Blood Pressure : / mmHG Vent. Rate : 076 BPM Atrial Rate : 076 BPM P-R Int : 150 ms QRS Dur : 070 ms QT Int : 396 ms P-R-T Axes : 049 004 034 degrees QTc Int : 445 ms Normal sinus rhythm Normal ECG No previous ECGs available Referred By: Odalys Aldridge Electronically Signed By:Vicente Bolanos
[2022-05-23 15:36] LABS: MANUAL DIFF FLAG NO
[2022-05-23 15:38] LABS: Basophils Absolute Auto 0.1 X10*3/uL (0.0-0.2); Basophils Percent Auto 0.9 % (0-2); Eosinophils Percent Auto 0.2 % (0-4); Hematocrit 33.8 % (37.0-47.0); Hemoglobin 10.5 g/dl (12.0-16.0); Imm Gran Abs Auto 0.02 X10*3/uL (0.00-0.03); Imm Gran Pct Auto 0.3 % (0.0-0.4); Lymphocytes Absolute Auto 0.7 X10*3/uL (1.2-4.9); Lymphocytes Percent Auto 12.1 % (20-40); Mean Corpuscular HGB Conc 31.1 g/dl (31.0-35.0); Mean Corpuscular Hemoglobin 24.6 pg (27.0-33.0); Mean Corpuscular Volume 79.2 fL (80.0-98.0); Mean Platelet Volume 9.1 fL (9.4-12.3); Monocytes Absolute Auto 0.3 X10*3/uL (0.1-1.2); Neutrophils Absolute Auto 4.7 x10*3/uL (2.0-8.3); Neutrophils Percent Auto 81.5 % (45-73); Platelet Count 435 X10*3/uL (160-400); Red Blood Count 4.27 X10*6/uL (4.20-5.50); Red Cell Distribution Width 14.9 % (11.0-16.0); White Blood Count 5.8 X10*3/uL (4.8-10.8)
[2022-05-23 15:43] LABS: INTERNATIONAL NORM RATIO 1.1 (0.9-1.1); Prothrombin Time 12.8 SEC (10.0-13.1)
[2022-05-23 15:56] LABS: Alanine Aminotransferase 9 U/L (0-31); Albumin Level 3.7 g/dL (3.5-5.0); Alkaline Phosphatase 135 U/L (39-117); Anion Gap 15 (12-20); Aspartate Amino Transferase 19 U/L (5-31); Bilirubin Direct < 0.2 mg/dL (0.0-0.5); Bilirubin Total 0.4 mg/dL (0.0-1.0); Blood Urea Nitrogen 7 mg/dL (9-16); Carbon Dioxide 25 mmol/L (22-29); Chloride 107 mmol/L (96-108); Estimated Glomerular Filt Rate > 60; Glucose Random 137 mg/dL (60-115); Lipase 24 U/L (8-78); Magnesium 2.2 mg/dL (1.6-2.6); Potassium 4.3 mmol/L (3.3-5.1); Sodium 143 mmol/L (135-145)
[2022-05-23 16:01] LABS: B Type Natriuretic Peptide 51 pg/mL (<100)
[2022-05-23 16:03] LABS: Troponin-I High Sensitivity < 3.5 ng/L (<3.5-17.0)
[2022-05-23 16:17] LABS: Influenza A PCR NEGATIVE (Negative); Influenza B PCR NEGATIVE (Negative); Resp Syncy Virus RNA Qual PCR NEGATIVE (Negative); SARS COV2 PCR INHOUSE NEGATIVE (Negative)
[2022-05-23] MEDS: oxyCODONE HCl Immed Release 5 MG TABLET 10 MG PO (17:20)
[2022-05-23] MEDS: Loperamide HCl 2 MG CAPSULE 4 MG PO (17:21)
[2022-05-23] MEDS: Ondansetron ODT 4 MG TAB.RAPDIS TRANSLINGU (17:21)
[2022-05-23 18:14] VITALS: BP 113/75; PULSE 78; RESP 18; O2SAT 96
== END 2022-05-23 18:18 | disposition home or self-care (01) ==
PROVIDERS: Physician Assistant; Emergency Provider Internal Medicine; PCP Family Medicine
DX: G89.3 Neoplasm related pain (acute) (chronic) (principal); R06.02 Shortness of breath; R53.1 Weakness; Z20.822 Contact with and (suspected) exposure to COVID-19; Z20.828 Contact with and (suspected) exposure to other viral communicable diseases; Z87.891 Personal history of nicotine dependence; Z79.899 Other long term (current) drug therapy
CPT/HCPCS: 0241U; 36415; 71045; 80048; 80076; 83690; 83735; 83880; 84484; 85025; 85610; 93005; 99283; 99284

== ENCOUNTER 2022-05-30 18:17 | Emergency (ER) | payer MEDICARE, MEDICAID, SELFPAY ==
--- NOTE | ~2022-05-30 | CT_ITS ---
EXAMINATION: CT ABDOMEN AND PELVIS WITH CONTRAST CLINICAL INFORMATION: Heavy vaginal bleeding. COMPARISON: 02/21/2022 TECHNIQUE: Multidetector volumetric images were obtained from the superior aspect of the liver through the pubic symphysis following administration 85 mL of Omnipaque 350 intravenous contrast. Sagittal and coronal reformatted images were obtained on the technologist's workstation. Oral contrast: No This CT examination was performed using dose optimization techniques as appropriate, variously including the following: *Automated exposure control *Adjustment of mA and/or kV according to patient size (this includes techniques or standardized protocols for targeted exams where dose is matched to indication/reason for exam; i.e. extremities or head) *Use of iterative reconstruction technique DLP: 380 mGy-cm FINDINGS: LUNG BASES: The visualized lung bases are unremarkable. LIVER, GALLBLADDER, AND BILIARY TREE: The liver is normal in size, shape, and attenuation. No focal hepatic lesion. Cholecystectomy. Diffuse intrahepatic and extrahepatic biliary ductal dilatation. The common bile duct measures 1.2 cm. This is unchanged in appearance from prior imaging. No ductal filling defect. PANCREAS: Unremarkable. SPLEEN: Unremarkable. ADRENAL GLANDS: Normal left adrenal gland. The right adrenal gland mass has decreased in size, with calcification now present. This area measures 3.2 x 2.6 cm. KIDNEYS AND URETERS: The kidneys are normal in size, shape, and attenuation. There is still no fat plane between the right adrenal mass and the right kidney. No hydronephrosis, hydroureter, or calculi seen. No perinephric stranding. BLADDER: No focal wall thickening of the posterior wall of the bladder measuring 1.1 cm.. GASTROINTESTINAL TRACT: The stomach is unremarkable. Normal caliber small bowel. No obstruction. No colonic wall thickening or inflammatory change. No free air or free fluid. ABDOMINAL WALL: No significant hernia is appreciated. LYMPH NODES: Normal. VASCULAR: Normal caliber aorta with moderate atherosclerotic calcification. PELVIC VISCERA: Similar appearance to prior. Atrophic or partially removed uterus with coarse calcifications. Decompressed vagina. The anterior wall of the vagina abuts the posterior wall of the bladder where there is some mild wall thickening. This is of uncertain significance. No adnexal mass. OSSEOUS STRUCTURES: No acute or suspicious osseous abnormality. Degenerative changes of the lumbar spine. CT/CT abdomen pelvis w IV con IMPRESSION: 1. Decreased size of the right adrenal gland mass with calcification now present. 2. Decompressed vagina. The anterior wall of the vagina abuts the posterior wall of the bladder where there is some mild wall thickening. This is of uncertain significance. Cannot exclude a bladder mass. 3. Similar appearance of the uterus which is either atrophic or partially absent with coarse calcifications. 4. Similar appearance of diffuse biliary ductal dilatation. Fleischner guidelines were followed.
[2022-05-30 19:15] VITALS: BP 204/63; PULSE 78; RESP 18; TEMP 37.2; O2SAT 97; BMI 21.6
--- NOTE | 2022-05-30 19:21 | ED.GENADULT ---
HPI - General Adult General Chief complaint: Vaginal Bleeding <Otis Kincaid - Last Filed: 05/30/22 19:22> Stated complaint: Abnormal Vaginal bleeding <Otis Kincaid - Last Filed: 05/30/22 19:22> Time Seen by Provider: 05/30/22 20:29 <Otis Kincaid - Last Filed: 05/30/22 19:22> Source: patient <FREDO Spears - Last Filed: 05/30/22 21:52> Mode of arrival: ambulatory <FREDO Spears - Last Filed: 05/30/22 21:52> Limitations: other (Or history) <FREDO Spears - Last Filed: 05/30/22 21:52> History of Present Illness HPI narrative: This is a 67-year-old female history of stage IIIB squamous carcinoma of cervix treated by Dr. Post at [facility], adrenal mass, anxiety and depression, opiate abuse presenting to the emergency department for evaluation of heavy vaginal bleeding, patient tells me she has been intermittently bleeding for the past few weeks however over the past few days she has been having heavy bleeding going through over 6 pads a day completely saturated. Patient tells me vaginal breathing started worsening today bleeding bright red blood with some clots. Patient tells me it has never been like this before. Tells me she is currently receiving [place] [facility] Rating anxiety, fatigue, malaise, weakness, nausea. Denies chest pain, shortness of breath, headache, vision changes, abdominal pain. <FREDO Spears - Last Filed: 05/30/22 21:52> Related Data Home medications: Previous Rx's Medication Instructions Recorded cane #1 ea 08/18/21 diclofenac sodium 1 % topical gel 2 g topical QID PRN pain #100 grams 08/18/21 (Arthritis Pain (diclofenac)) alendronate 70 mg tablet 70 mg PO QWEEK #12 tabs 11/01/21 adalimumab 40 mg/0.4 mL See Rx Instructions subcut 11/09/21 subcutaneous pen kit (Humira(CF) .COMPLEX #2 ea Pen) sertraline 50 mg tablet 50 mg PO DAILY 90 days #90 tabs 02/27/22 gabapentin 600 mg tablet 600 mg PO DAILY 30 days #30 tabs 03/26/22 mirtazapine 15 mg tablet 15 mg PO DAILY 30 days #30 tabs 03/26/22 dexamethasone 4 mg tablet 4 mg PO BID #30 tabs 04/06/22 ondansetron 8 mg oral soluble film 8 mg PO Q8H PRN Nausea #60 ea 04/06/22 amoxicillin 500 mg tablet 500 mg PO Q12H 10 days #20 tabs 05/16/22 food supplemt, lactose-reduced 1 ea PO DAILY 90 days #21,330 mL 05/16/22 (Ensure oral liquid) meclizine 12.5 mg tablet 12.5 mg PO DAILY PRN dizziness 30 05/16/22 days #14 tabs diaper,brief,adult,disposable #60 ea 05/20/22 ([place] Adult Brief) sulfamethoxazole 800 1 tab PO Q12H 5 days #10 tabs 05/20/22 mg-trimethoprim 160 mg tablet (Bactrim DS) morphine 30 mg tablet,extended 30 mg PO Q12H #60 tabs 05/22/22 release (MS Contin) oxycodone 5 mg tablet 5 mg PO Q6H PRN Pain #60 tabs 05/22/22 lorazepam 1 mg tablet (Ativan) 1.5 mg PO Q8H PRN Anxiety 30 days 05/28/22 #135 tabs <Otis Kincaid - Last Filed: 05/30/22 19:22> Allergies/adverse reactions: Allergies Allergy/AdvReac Type Severity Reaction Status Date / Time buprenorphine [Belbuca] Allergy Intermediate nausea Verified 05/23/22 14:55 <Otis Kincaid - Last Filed: 05/30/22 19:22> Review of Systems Review of Systems: Constitutional : No Fever, No Chills ENT/Mouth : No sore throat, No Rhinorrhea Eyes: No Eye Pain, No Redness Cardiovascular : No Chest Pain, No SOB Respiratory : No Cough, No Sputum, No Wheezing Gastrointestinal : positive Nausea, No Vomiting, No Diarrhea, No abdominal pain, Genitourinary : positive irregular bleeding, No Dysuria, No Urinary Frequency, No pelvic pain Musculoskeletal : No Myalgias Skin : No rash Neuro : No Weakness, No Headache Psych : No Anxiety/Panic, No Depression Heme/Lymph: No bruising, No Lymphadenopathy Endocrine : No Polyuria, No Polydipsia All other systems reviewed and are negative <FREDO Spears - Last Filed: 05/30/22 21:52> Yes all other systems are reviewed and are negative <FREDO Spears - Last Filed: 05/30/22 21:52> [facility] Past Medical History Attestation statement: The following information was validated with the patient. <FREDO Spears - Last Filed: 05/30/22 21:52> Source: old records reviewed and nursing notes reviewed <FREDO Spears - Last Filed: 05/30/22 21:52> Medical History: Medical History Back pain Cervical cancer Opiate abuse, episodic Osteoarthritis of both knees Osteopenia determined by x-ray Primary osteoarthritis of knees, bilateral Seropositive rheumatoid arthritis <Otis Kincaid - Last Filed: 05/30/22 19:22> Surgical History: Surgical History History of appendectomy History of cholecystectomy History of D&C History of tonsillectomy <Otis Kincaid - Last Filed: 05/30/22 19:22> Family History Family History: Family History Father Acute CVA (cerebrovascular accident) Mother Hypertension Hypercholesterolemia Brother Liver transplant status Family history of thyroid problem <Otis Kincaid - Last Filed: 05/30/22 19:22> Social History Social History: Social History Household Members: Children Housing: House Are you a primary customer care coordinator to a significant other at home: Yes (mom) Do you presently have visiting nurse or other home services: No Alcohol intake: never Patient Tobacco Use Status: Former Tobacco user Quit Date: 2016 Tobacco use type: Cigarette e-Cigarette/Vaping Use: Never Used Second Hand Smoke Exposure: No Advance Directives: No Advance Directives Information Provided: No service: No Current occupational status: employed and 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 Cognitive needs: No Hearing needs: No Vision needs: Yes <Otis Kincaid - Last Filed: 05/30/22 19:22> Physical Exam ED Vital Signs: Vital Signs - 24 hr 05/30/22 19:15 05/30/22 20:04 05/30/22 20:11 Temperature 98.9 F Pulse Rate 78 74 73 Respiratory Rate 18 18 18 Blood Pressure 204/63 H 149/75 H 141/67 H Pulse Oximetry 97 100 98 Oxygen Delivery Method Room Air Room Air Room Air 05/30/22 20:26 05/30/22 21:34 05/30/22 21:49 Temperature 98.1 F 98 F Pulse Rate 71 72 77 Respiratory Rate 18 20 Blood Pressure 123/61 120/54 L 138/44 L Pulse Oximetry 95 Oxygen Delivery Method Room Air BMI result Body Mass Index 21.6 <Otis Kincaid - Last Filed: 05/30/22 19:22> Vital Signs - 24 hr 05/30/22 19:15 05/30/22 20:04 05/30/22 20:11 Temperature 98.9 F Pulse Rate 78 74 73 Respiratory Rate 18 18 18 Blood Pressure 204/63 H 149/75 H 141/67 H Pulse Oximetry 97 100 98 Oxygen Delivery Method Room Air Room Air Room Air 05/30/22 20:26 05/30/22 21:34 05/30/22 21:49 Temperature 98.1 F 98 F Pulse Rate 71 72 77 Respiratory Rate 18 20 Blood Pressure 123/61 120/54 L 138/44 L Pulse Oximetry 95 Oxygen Delivery Method Room Air BMI result Body Mass Index 21.6 vss <FREDO Spears - Last Filed: 05/30/22 21:52> Appearance: Alert.? Oriented X3.? No acute distress.? Head: Normocephalic, atraumatic, no step-offs or deformities Eyes: Pupils equal, round and reactive to light.? Neck: Normal inspection.? Neck supple.? CVS: Normal heart rate and rhythm.? Pulses normal.? Respiratory: No respiratory distress.? Breath sounds normal.? Abdomen: Soft and nontender.? Skin: Skin warm and dry.? Pale skin color.? Normal skin turgor.? Extremities: No lower extremity edema.? No calf ttp. Global weakness Sensative exam: reufusing internal exam, however a large amount of blood noted around vagina. Neuro: Oriented X 3.? No motor deficit.? No sensory deficit. CN 2-12 intact <FREDO Spears - Last Filed: 05/30/22 21:52> Course Course Course Narrative: 67-year-old female past medical history significant for cervical cancer presents for evaluation of abnormal vaginal bleeding. Added on labs including coags and type and screen. A UA is also pending. Further workup as indicated <Otis Kincaid - Last Filed: 05/30/22 19:22> Reevaluation(s) Reevaluation #1: Zerbe- folder seamer automatic/onc recommended. <FREDO Spears - Last Filed: 05/30/22 21:52> Time: 20:08 <FREDO Spears - Last Filed: 05/30/22 21:52> Reevaluation #2: Spoke to Dr. Cortez who tells me patient has been seen by [facility]. Recommends speaking to them and agrees w/ transfusion Initially patient's hemoglobin 9.4, hematocrit 29.6, patient was brought into the room in within 15 minutes she blood through 3 pads on the bed therefore CBC was repeated repeat CBC with hemoglobin of 9.7, hematocrit 31.3 platelet of 407. Chemistry with slightly low sodium 133 fluids are being hung. No other acute electrolyte abnormalities requiring intervention. Coags unremarkable. UA, COVID pending. <FREDO Spears - Last Filed: 05/30/22 21:52> Time: 20:32 <FREDO Spears - Last Filed: 05/30/22 21:52> Reevaluation #3: Spoke to Dr. Carmen Newton. Tells me that if there is a Mass, pham w/ packing shold be placed. However if vaginal bleeding present patients vagina should be packed. Will wait to speak to ED attending at [facility]. In the meantime will obtain CT abd and pelvis as requested by [facility] to r/o potential mass. <FREDO Spears - Last Filed: 05/30/22 21:52> Time: 20:25 <FREDO Spears - Last Filed: 05/30/22 21:52> Additional Reevaluation(s): 2031 Dr. Falk from [facility] accepts transfer. 2106 Patient agreed to pelvic exam, I went to go do a pelvic exam patient starts screaming and states she is in too much pain, now refusing, I was not able to visualize much however there is evidence of heavy vaginal bleeding within the vaginal canal, large clots noted, patient bled through another pad. I did apply a small amount of moist gauze into patient's vaginal canal however patient did not tolerate more. Patient's blood pressure remained stable. Waiting for blood products. CT pending. Plan is to transfer to [facility]. CT of the abdomen and pelvis showing decreased size of the right adrenal gland mass with calcifications present. Decompressed vagina. Anterior wall vagina abrupt the posterior wall the bladder where there is some mild wall thickening concerns for possible bladder mass. Atrophic uterus. A disc was sent with patient to [facility] with EMS with imaging. [facility] sent [facility] Patient refusing pham <FREDO Spears - Last Filed: 05/30/22 21:52> Consultations Consultation #1: This case was discussed with my attending who evaluated patient recommends OBGYN consult and transfusion also recommends TXA <FREDO Spears - Last Filed: 05/30/22 21:52> Time: 21:35 <FREDO Spears - Last Filed: 05/30/22 21:52> Medications Administered Discontinued Medications Generic Name Dose Route Start Last Admin Trade Name Freq PRN Reason Stop Dose Admin Tranexamic Acid 1,000 mg/ 60 mls @ 360 mls/hr 05/30/22 20:10 05/30/22 20:32 Sodium Chloride IV 05/30/22 20:19 Infused ONCE ONE Infusion Sodium Chloride 1,000 mls @ 999 mls/hr 05/30/22 20:45 05/30/22 21:17 Ns IV 05/30/22 21:45 999 mls/hr .Q1H1M LUIS M Administration Iohexol 100 ml 05/30/22 20:48 05/30/22 20:48 Iohexol 350 Mg/Ml 100 Ml Infus..Btl IV 05/30/22 20:49 85 ml ONCE ONE Administration Ondansetron HCl 4 mg 05/30/22 20:43 05/30/22 21:17 Ondansetron Hcl 4 Mg/2 Ml Vial IVPUSH 05/30/22 20:44 4 mg ONCE ONE Administration <Otis Kincaid - Last Filed: 05/30/22 19:22> Medications Administered Discontinued Medications Generic Name Dose Route Start Last Admin Trade Name Joel PRN Reason Stop Dose Admin Tranexamic Acid 1,000 mg/ 60 mls @ 360 mls/hr 05/30/22 20:10 05/30/22 20:32 Sodium Chloride IV 05/30/22 20:19 Infused ONCE ONE Infusion Sodium Chloride 1,000 mls @ 999 mls/hr 05/30/22 20:45 05/30/22 21:17 Ns IV 05/30/22 21:45 999 mls/hr .Q1H1M LUIS M Administration Iohexol 100 ml 05/30/22 20:48 05/30/22 20:48 Iohexol 350 Mg/Ml 100 Ml Infus..Btl IV 05/30/22 20:49 85 ml ONCE ONE Administration Ondansetron HCl 4 mg 05/30/22 20:43 05/30/22 21:17 Ondansetron Hcl 4 Mg/2 Ml Vial IVPUSH 05/30/22 20:44 4 mg ONCE ONE Administration <FREDO Spears - Last Filed: 05/30/22 21:52> Medical Decision Making Medical Decision Making MDM Narrative: 2000 67-year-old female presents with heavy vaginal bleeding times a few days worsening. History of metastatic cervical cancer. For reporting fatigue, malaise, nausea. Physical exam patient appears pale, anxious and is having evident vaginal bleeding however adamantly refusing an internal exam. Concerns for vaginal bleeding secondary to malignancy or possible new mass. Also concern for anemia and electrolyte abnormalities. Plan at this time obtain basic labs, type and screen, call OBGYN, UA Upon chart review CT abdomen/ pelvis performed 02/21 revealed a 6.2 x 5.3 cm mass in the right adrenal gland extending into retrocaval space and retroperitoneum, IVC is inseparable from this mass likely invaded, Enlarged left inguinal lymph node, enlarged periportal and upper retroperitoneal lymph nodes measuring up to 0.9 cm.... History of stage IIIB squamous carcinoma of cervix, treated by Dr. Post at [facility] She received cisplatin from 11/15/2016 to 12/20/2016, external beam radiation therapy from 11/15/2016 to 2016. Vaginal brachytherapy 12/31/2016 and 01/07/2017 at [facility]... <FREDO Spears - Last Filed: 05/30/22 21:52> Differential Diagnosis Differential Diagnoses: The differential diagnosis associated with the presentation includes <FREDO Spears - Last Filed: 05/30/22 21:52> Concerns for vaginal bleeding secondary to malignancy or possible new mass. Also concern for anemia and electrolyte abnormalities. <FREDO Spears - Last Filed: 05/30/22 21:52> Admission/Observation Consideration of admission/observation: Escalation of care including admission/observation considered <FREDO Spears - Last Filed: 05/30/22 21:52> Likely will require hospital at a facility with gynecology oncology. <FREDO Spears - Last Filed: 05/30/22 21:52> Consult Healthcare Provider Management of the patient was discussed with: Organizational Consultant (OBGYN, Oncology) <FREDO Spears - Last Filed: 05/30/22 21:52> Lab Data MDM Lab Attestation statement: I reviewed the patient's lab results. <FREDO Spears - Last Filed: 05/30/22 21:52> Result Diagrams: 05/30/22 19:33 05/30/22 19:33 <Otis Kincaid - Last Filed: 05/30/22 19:22> Labs: Lab Results 05/30/22 05/30/22 05/30/22 Range/Units 19:33 19:33 19:33 WBC 6.3 (4.8-10.8) X10*3/uL RBC 3.84 L (4.20-5.50) X10*6/uL Hgb 9.4 L (12.0-16.0) g/dl Hct 29.6 L (37.0-47.0) % MCV 77.1 L (80.0-98.0) fL MCH 24.5 L (27.0-33.0) pg MCHC 31.8 (31.0-35.0) g/dl RDW 15.1 (11.0-16.0) % Plt Count 399 (160-400) X10*3/uL MPV 9.0 L (9.4-12.3) fL Immature Gran % (Auto) 0.3 (0.0-0.4) % Neut % (Auto) 75.4 H (45-73) % Lymph % (Auto) 12.7 L (20-40) % [place] % (Auto) 6.2 (2-11) % Eos % (Auto) 4.4 H (0-4) % Baso % (Auto) 1.0 (0-2) % Lymph # (Auto) 0.8 L (1.2-4.9) X10*3/uL [place] # (Auto) 0.4 (0.1-1.2) X10*3/uL Eos # (Auto) 0.3 (0.0-0.4) X10*3/uL Baso # (Auto) 0.1 (0.0-0.2) X10*3/uL Abs Immat Gran (auto) 0.02 (0.00-0.03) X10*3/uL Absolute Neuts (auto) 4.8 (2.0-8.3) x10*3/uL Absolute Nucleated RBC 0.000 (0.0-0.012) X10*3/uL Nucleated RBC % (auto) 0.0 (0.0-0.2) /100WBC PT 12.9 (10.0-13.1) SEC INR 1.1 (0.9-1.1) APTT 32.3 (26.0-36.4) SEC Sodium 133 L (135-145) mmol/L Potassium 3.9 (3.3-5.1) mmol/L Chloride 99 (96-108) mmol/L Carbon Dioxide 24 (22-29) mmol/L Anion Gap 14 (12-20) BUN 11 (9-16) mg/dL Creatinine 0.90 (0.5-1.4) mg/dL Estim Creat Clear Calc 56.0 Estimated GFR > 60 Random Glucose 116 H (60-115) mg/dL Calcium 8.5 (8.4-10.2) mg/dL Total Bilirubin 0.8 (0.0-1.0) mg/dL AST 53 H (5-31) U/L ALT 19 (0-31) U/L Alkaline Phosphatase 390 H (39-117) U/L Total Protein 6.6 (6.5-8.0) g/dL Albumin 3.5 (3.5-5.0) g/dL Lipase 29 (8-78) U/L COVID-19 (EDDIE) (Negative) COVID-19 Clin Com Blood Type Antibody Screen Crossmatch 05/30/22 05/30/22 05/30/22 Range/Units 19:59 20:09 21:12 WBC 6.5 (4.8-10.8) X10*3/uL RBC 3.94 L (4.20-5.50) X10*6/uL Hgb 9.7 L (12.0-16.0) g/dl Hct 31.3 L (37.0-47.0) % MCV 79.4 L (80.0-98.0) fL MCH 24.6 L (27.0-33.0) pg MCHC 31.0 (31.0-35.0) g/dl RDW 14.9 (11.0-16.0) % Plt Count 407 H (160-400) X10*3/uL MPV 9.1 L (9.4-12.3) fL Immature Gran % (Auto) 0.5 H (0.0-0.4) % Neut % (Auto) 72.5 (45-73) % Lymph % (Auto) 15.6 L (20-40) % [place] % (Auto) 6.8 (2-11) % Eos % (Auto) 3.7 (0-4) % Baso % (Auto) 0.9 (0-2) % Lymph # (Auto) 1.0 L (1.2-4.9) X10*3/uL [place] # (Auto) 0.4 (0.1-1.2) X10*3/uL Eos # (Auto) 0.2 (0.0-0.4) X10*3/uL Baso # (Auto) 0.1 (0.0-0.2) X10*3/uL Abs Immat Gran (auto) 0.03 (0.00-0.03) X10*3/uL Absolute Neuts (auto) 4.7 (2.0-8.3) x10*3/uL Absolute Nucleated RBC 0.000 (0.0-0.012) X10*3/uL Nucleated RBC % (auto) 0.0 (0.0-0.2) /100WBC PT (10.0-13.1) SEC INR (0.9-1.1) APTT (26.0-36.4) SEC Sodium (135-145) mmol/L Potassium (3.3-5.1) mmol/L Chloride (96-108) mmol/L Carbon Dioxide (22-29) mmol/L Anion Gap (12-20) BUN (9-16) mg/dL Creatinine (0.5-1.4) mg/dL Estim Creat Clear Calc Estimated GFR Random Glucose (60-115) mg/dL Calcium (8.4-10.2) mg/dL Total Bilirubin (0.0-1.0) mg/dL AST (5-31) U/L ALT (0-31) U/L Alkaline Phosphatase (39-117) U/L Total Protein (6.5-8.0) g/dL Albumin (3.5-5.0) g/dL Lipase (8-78) U/L COVID-19 (EDDIE) Negative (Negative) COVID-19 Clin Com See Note Blood Type A Positive Antibody Screen NEGATIVE Crossmatch See Detail <Otis Kincaid - Last Filed: 05/30/22 19:22> Lab Results 05/30/22 05/30/22 05/30/22 Range/Units 19:33 19:33 19:33 WBC 6.3 (4.8-10.8) X10*3/uL RBC 3.84 L (4.20-5.50) X10*6/uL Hgb 9.4 L (12.0-16.0) g/dl Hct 29.6 L (37.0-47.0) % MCV 77.1 L (80.0-98.0) fL MCH 24.5 L (27.0-33.0) pg MCHC 31.8 (31.0-35.0) g/dl RDW 15.1 (11.0-16.0) % Plt Count 399 (160-400) X10*3/uL MPV 9.0 L (9.4-12.3) fL Immature Gran % (Auto) 0.3 (0.0-0.4) % Neut % (Auto) 75.4 H (45-73) % Lymph % (Auto) 12.7 L (20-40) % [place] % (Auto) 6.2 (2-11) % Eos % (Auto) 4.4 H (0-4) % Baso % (Auto) 1.0 (0-2) % Lymph # (Auto) 0.8 L (1.2-4.9) X10*3/uL [place] # (Auto) 0.4 (0.1-1.2) X10*3/uL Eos # (Auto) 0.3 (0.0-0.4) X10*3/uL Baso # (Auto) 0.1 (0.0-0.2) X10*3/uL Abs Immat Gran (auto) 0.02 (0.00-0.03) X10*3/uL Absolute Neuts (auto) 4.8 (2.0-8.3) x10*3/uL Absolute Nucleated RBC 0.000 (0.0-0.012) X10*3/uL Nucleated RBC % (auto) 0.0 (0.0-0.2) /100WBC PT 12.9 (10.0-13.1) SEC INR 1.1 (0.9-1.1) APTT 32.3 (26.0-36.4) SEC Sodium 133 L (135-145) mmol/L Potassium 3.9 (3.3-5.1) mmol/L Chloride 99 (96-108) mmol/L Carbon Dioxide 24 (22-29) mmol/L Anion Gap 14 (12-20) BUN 11 (9-16) mg/dL Creatinine 0.90 (0.5-1.4) mg/dL Estim Creat Clear Calc 56.0 Estimated GFR > 60 Random Glucose 116 H (60-115) mg/dL Calcium 8.5 (8.4-10.2) mg/dL Total Bilirubin 0.8 (0.0-1.0) mg/dL AST 53 H (5-31) U/L ALT 19 (0-31) U/L Alkaline Phosphatase 390 H (39-117) U/L Total Protein 6.6 (6.5-8.0) g/dL Albumin 3.5 (3.5-5.0) g/dL Lipase 29 (8-78) U/L COVID-19 (EDDIE) (Negative) COVID-19 Clin Com Blood Type Antibody Screen Crossmatch 05/30/22 05/30/22 05/30/22 Range/Units 19:59 20:09 21:12 WBC 6.5 (4.8-10.8) X10*3/uL RBC 3.94 L (4.20-5.50) X10*6/uL Hgb 9.7 L (12.0-16.0) g/dl Hct 31.3 L (37.0-47.0) % MCV 79.4 L (80.0-98.0) fL MCH 24.6 L (27.0-33.0) pg MCHC 31.0 (31.0-35.0) g/dl RDW 14.9 (11.0-16.0) % Plt Count 407 H (160-400) X10*3/uL MPV 9.1 L (9.4-12.3) fL Immature Gran % (Auto) 0.5 H (0.0-0.4) % Neut % (Auto) 72.5 (45-73) % Lymph % (Auto) 15.6 L (20-40) % [place] % (Auto) 6.8 (2-11) % Eos % (Auto) 3.7 (0-4) % Baso % (Auto) 0.9 (0-2) % Lymph # (Auto) 1.0 L (1.2-4.9) X10*3/uL [place] # (Auto) 0.4 (0.1-1.2) X10*3/uL Eos # (Auto) 0.2 (0.0-0.4) X10*3/uL Baso # (Auto) 0.1 (0.0-0.2) X10*3/uL Abs Immat Gran (auto) 0.03 (0.00-0.03) X10*3/uL Absolute Neuts (auto) 4.7 (2.0-8.3) x10*3/uL Absolute Nucleated RBC 0.000 (0.0-0.012) X10*3/uL Nucleated RBC % (auto) 0.0 (0.0-0.2) /100WBC PT (10.0-13.1) SEC INR (0.9-1.1) APTT (26.0-36.4) SEC Sodium (135-145) mmol/L Potassium (3.3-5.1) mmol/L Chloride (96-108) mmol/L Carbon Dioxide (22-29) mmol/L Anion Gap (12-20) BUN (9-16) mg/dL Creatinine (0.5-1.4) mg/dL Estim Creat Clear Calc Estimated GFR Random Glucose (60-115) mg/dL Calcium (8.4-10.2) mg/dL Total Bilirubin (0.0-1.0) mg/dL AST (5-31) U/L ALT (0-31) U/L Alkaline Phosphatase (39-117) U/L Total Protein (6.5-8.0) g/dL Albumin (3.5-5.0) g/dL Lipase (8-78) U/L COVID-19 (EDDIE) Negative (Negative) COVID-19 Clin Com See Note Blood Type A Positive Antibody Screen NEGATIVE Crossmatch See Detail <FREDO Spears - Last Filed: 05/30/22 21:52> Independent Interpretation I performed an independent interpretation of an: CT Scan <FREDO Spears - Last Filed: 05/30/22 21:52> Radiology Impression Discussion of test interpretation with radiology: I have reviewed the radiologist's reading. <FREDO Spears - Last Filed: 05/30/22 21:52> External Record Review External record reviewed: Inpatient record, Office record, Outpatient record, Prior outpatient labs, Prior outpatient radiology, Primary care record and Outside ED record <FREDO Spears Last Filed: 05/30/22 21:52> Core Measures AMI core measures followed: Yes <FREDO Spears Last Filed: 05/30/22 21:52> Measure exclusions: not indicated <FREDO Spears - Last Filed: 05/30/22 21:52> Critical Care Time Critical Care Time Critical Care Time: Yes <FREDO Spears - Last Filed: 05/30/22 21:52> Total Critical Care Time: 65 <FREDO Spears - Last Filed: 05/30/22 21:52> Attestation: I attest to this time spent taking care of the patient, obtaining history, physical, reviewing labs, imaging, speaking to my attending, speaking to specialist. <FREDO Spears - Last Filed: 05/30/22 21:52> Discharge Plan Discharge Clinical Impression: Abnormal vaginal bleeding <Otis Kincaid - Last Filed: 05/30/22 19:22> Patient Disposition: [facility] <Otis Kincaid - Last Filed: 05/30/22 19:22> Transfer Details: Dr. Falk from [facility] accepts transfer ED- ED <Otis Kincaid - Last Filed: 05/30/22 19:22> Dr. Falk from [facility] accepts transfer ED- ED <FREDO Spears - Last Filed: 05/30/22 21:52> Prescriptions: No Action alendronate 70 mg tablet 70 mg PO QWEEK Qty: 12 0RF sertraline 50 mg tablet 50 mg PO DAILY 90 Days Qty: 90 3RF mirtazapine 15 mg tablet 15 mg PO DAILY 30 Days Qty: 30 0RF gabapentin 600 mg tablet 600 mg PO DAILY 30 Days Qty: 30 1RF (DME) [facility] [place] Adult Brief Misc See Rx Instructions .Route Qty: 60 2RF Rx Instructions: 2 daily As directed, 30 days sulfamethoxazole-trimethoprim [Bactrim DS] 800-160 mg tablet 1 tab PO Q12H 5 Days Qty: 10 0RF lorazepam [Ativan] 1 mg tablet 1.5 mg PO Q8H PRN (Reason: Anxiety) 30 Days Qty: 135 0RF Rx Instructions: [facility] verified. Partial refill upon request. dexamethasone 4 mg Tablet 4 mg PO BID Qty: 30 3RF Rx Instructions: For 2 days after chemotherapy ondansetron 8 mg Film 8 mg PO Q8H PRN (Reason: Nausea) Qty: 60 3RF morphine [MS Contin] 30 mg Tablet Extended Release 30 mg PO Q12H Qty: 60 0RF Rx Instructions: Partial Fill upon patient request. oxycodone 5 mg Tablet 5 mg PO Q6H PRN (Reason: Pain) Qty: 60 0RF Rx Instructions: Partial Fill upon patient request. diclofenac sodium [Arthritis Pain (diclofenac)] 1 % gel 2 g topical QID PRN (Reason: pain) Qty: 100 0RF Rx Instructions: apply to single elbow, wrist or hand; for hand includes palm/fingers/back of hand (DME) cane Device See Rx Instructions .Route Qty: 1 0RF Rx Instructions: As directed meclizine 12.5 mg tablet 12.5 mg PO DAILY PRN (Reason: dizziness) 30 Days Qty: 14 0RF amoxicillin 500 mg tablet 500 mg PO Q12H 10 Days Qty: 20 0RF Ensure Liquid 1 ea PO DAILY 90 Days Qty: 58730 3RF Rx Instructions: Pushpa Tomas(CF) Pen 40 mg/0.4 mL pen injector kit See Rx Instructions subcut .COMPLEX Qty: 2 1RF Rx Instructions: inject one - 40 mg/0.4 mL pen every 2 weeks subcut <Otis Kincaid - Last Filed: 05/30/22 19:22>
[2022-05-30 19:38] LABS: MANUAL DIFF FLAG NO
[2022-05-30 19:39] LABS: Basophils Absolute Auto 0.1 X10*3/uL (0.0-0.2); Eosinophils Absolute Auto 0.3 X10*3/uL (0.0-0.4); Eosinophils Percent Auto 4.4 % (0-4); Hematocrit 29.6 % (37.0-47.0); Hemoglobin 9.4 g/dl (12.0-16.0); Imm Gran Abs Auto 0.02 X10*3/uL (0.00-0.03); Imm Gran Pct Auto 0.3 % (0.0-0.4); Lymphocytes Absolute Auto 0.8 X10*3/uL (1.2-4.9); Lymphocytes Percent Auto 12.7 % (20-40); Mean Corpuscular HGB Conc 31.8 g/dl (31.0-35.0); Mean Corpuscular Hemoglobin 24.5 pg (27.0-33.0); Mean Corpuscular Volume 77.1 fL (80.0-98.0); Monocytes Absolute Auto 0.4 X10*3/uL (0.1-1.2); Monocytes Percent Auto 6.2 % (2-11); Neutrophils Absolute Auto 4.8 x10*3/uL (2.0-8.3); Neutrophils Percent Auto 75.4 % (45-73); Platelet Count 399 X10*3/uL (160-400); Red Blood Count 3.84 X10*6/uL (4.20-5.50); Red Cell Distribution Width 15.1 % (11.0-16.0); White Blood Count 6.3 X10*3/uL (4.8-10.8)
[2022-05-30 19:46] LABS: INTERNATIONAL NORM RATIO 1.1 (0.9-1.1); Prothrombin Time 12.9 SEC (10.0-13.1)
[2022-05-30 19:49] LABS: Partial Thromboplastin Time 32.3 SEC (26.0-36.4)
[2022-05-30 19:54] LABS: Alanine Aminotransferase 19 U/L (0-31); Albumin Level 3.5 g/dL (3.5-5.0); Alkaline Phosphatase 390 U/L (39-117); Anion Gap 14 (12-20); Aspartate Amino Transferase 53 U/L (5-31); Bilirubin Total 0.8 mg/dL (0.0-1.0); Blood Urea Nitrogen 11 mg/dL (9-16); Calcium 8.5 mg/dL (8.4-10.2); Carbon Dioxide 24 mmol/L (22-29); Chloride 99 mmol/L (96-108); Estimated Glomerular Filt Rate > 60; Glucose Random 116 mg/dL (60-115); Lipase 29 U/L (8-78); Potassium 3.9 mmol/L (3.3-5.1); Sodium 133 mmol/L (135-145); Total Protein 6.6 g/dL (6.5-8.0)
[2022-05-30 20:03] LABS: MANUAL DIFF FLAG NO
[2022-05-30 20:04] VITALS: BP 149/75; PULSE 74; RESP 18; O2SAT 100
[2022-05-30 20:08] LABS: Basophils Absolute Auto 0.1 X10*3/uL (0.0-0.2); Basophils Percent Auto 0.9 % (0-2); Eosinophils Absolute Auto 0.2 X10*3/uL (0.0-0.4); Eosinophils Percent Auto 3.7 % (0-4); Hematocrit 31.3 % (37.0-47.0); Hemoglobin 9.7 g/dl (12.0-16.0); Imm Gran Abs Auto 0.03 X10*3/uL (0.00-0.03); Imm Gran Pct Auto 0.5 % (0.0-0.4); Lymphocytes Percent Auto 15.6 % (20-40); Mean Corpuscular Hemoglobin 24.6 pg (27.0-33.0); Mean Corpuscular Volume 79.4 fL (80.0-98.0); Mean Platelet Volume 9.1 fL (9.4-12.3); Monocytes Absolute Auto 0.4 X10*3/uL (0.1-1.2); Monocytes Percent Auto 6.8 % (2-11); Neutrophils Absolute Auto 4.7 x10*3/uL (2.0-8.3); Neutrophils Percent Auto 72.5 % (45-73); Platelet Count 407 X10*3/uL (160-400); Red Blood Count 3.94 X10*6/uL (4.20-5.50); Red Cell Distribution Width 14.9 % (11.0-16.0); White Blood Count 6.5 X10*3/uL (4.8-10.8)
[2022-05-30 20:11] VITALS: BP 141/67; PULSE 73; RESP 18; O2SAT 98
--- NOTE | 2022-05-30 20:17 | PM.GYNCN ---
INSPECTOR ASSEMBLY - CN: HPI Data of Consult Consult date: 05/30/22 Primary Care Provider: Dean Villalba MD Consult Narrative Narrative: I was consulted regarding Evelyn Marin who is a 67 year old female presented emergency room with heavy vaginal bleeding the The patient has a history of stage IIIB squamous carcinoma of cervix, treated by Dr. Post at [facility]. ?She received chemotherapy in 2017 followed by external beam radiation therapy and Vaginal brachytherapy. She was recently found to have large adrenal mass suspicious for carcinoma.? CT abdomen/ pelvis performed 02/21 with IV contrast revealed a 6.2 x 5.3 cm mass in the right adrenal gland extending into retrocaval space and retroperitoneum.? IVC is inseparable from this mass likely invaded.? Enlarged left inguinal lymph node, enlarged periportal and upper retroperitoneal lymph nodes measuring up to 0.9 cm.? She underwent right adrenal core biopsy on 03/08/2022 which revealed metastatic squamous cell carcinoma, moderate to poorly differentiated involving fibrous soft tissue.? Findings likely represent a metastasis from patient's cervical primary. cc:: CC: OB [facility] Past Medical History Medical History Back pain Cervical cancer Opiate abuse, episodic Osteoarthritis of both knees Osteopenia determined by x-ray Primary osteoarthritis of knees, bilateral Seropositive rheumatoid arthritis Family History Family History Father Acute CVA (cerebrovascular accident) Mother Hypertension Hypercholesterolemia Brother Liver transplant status Family history of thyroid problem Surgical History Surgical History History of appendectomy History of cholecystectomy History of D&C History of tonsillectomy Social History Social History Household Members: Children Housing: House Are you a primary medicare sales executive to a significant other at home: Yes (mom) Do you presently have visiting nurse or other home services: No Alcohol intake: never Patient Tobacco Use Status: Former Tobacco user Quit Date: 2016 Tobacco use type: Cigarette e-Cigarette/Vaping Use: Never Used Second Hand Smoke Exposure: No Advance Directives: No Advance Directives Information Provided: No service: No Current occupational status: employed and 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 Cognitive needs: No Hearing needs: No Vision needs: Yes Meds Allergies Allergy/AdvReac Type Severity Reaction Status Date / Time buprenorphine [Belbuca] Allergy Intermediate nausea Verified 05/23/22 14:55 Active Medications: Current Medications Tranexamic Acid 1,000 mg/ (Sodium Chloride) 60 mls @ 360 mls/hr IV ONCE ONE Stop: 05/30/22 20:19 INSPECTOR ASSEMBLY Physical Exam Vitals Vital signs: Temp Pulse Resp BP Pulse Ox O2 Del Method 98.9 F 73 18 141/67 H 98 05/30/22 19:15 05/30/22 20:11 05/30/22 20:11 05/30/22 20:11 05/30/22 20:11 05/30/22 20:11 BMI result Body Mass Index 21.6 Additional Comments: Patient adamantly declined vaginal exam INSPECTOR ASSEMBLY - Results Labs 05/30/22 19:59 05/30/22 19:33 Labs: Short CBC 05/30/22 05/30/22 Range/Units 19:33 19:59 WBC 6.3 6.5 (4.8-10.8) X10*3/uL Hgb 9.4 L 9.7 L (12.0-16.0) g/dl Hct 29.6 L 31.3 L (37.0-47.0) % Plt Count 399 407 H (160-400) X10*3/uL BMP 05/30/22 19:33 Sodium 133 L Potassium 3.9 Chloride 99 Carbon Dioxide 24 BUN 11 Creatinine 0.90 Calcium 8.5 Liver Function 05/30/22 Range/Units 19:33 Total Bilirubin 0.8 (0.0-1.0) mg/dL AST 53 H (5-31) U/L ALT 19 (0-31) U/L Alkaline Phosphatase 390 H (39-117) U/L Albumin 3.5 (3.5-5.0) g/dL Assessment and Plan (1) Squamous cell carcinoma of cervix: Status: Acute Plan Recommended to FREDO Spears the following: Offered to come in to the emergency room in an effort to evaluate the patient's vaginal bleeding an attempt tamponade the vaginal bleeding but the patient adamantly refuses a vaginal exam, recommended for the patient to be transferred to [facility] since [facility] has no mine inspector federal Oncology service available plan if need be to initiate blood transfusion I spent a total of 20 minute reviewing the chart, communicating with the emergency room provider and documenting insert medical record Time Spent With Patient Time: Total time managing care of this patient today ____ minutes.
[2022-05-30] MEDS: Tranexamic Acid 1,000 MG in 0.9 % Sodium Chloride 50 ML 360 MG IV (20:21)
--- NOTE | 2022-05-30 20:21 | PC.NURSE ---
TXA started at this time.
[2022-05-30 20:26] VITALS: BP 123/61; PULSE 71; O2SAT 95
--- NOTE | 2022-05-30 20:29 | PC.NURSE ---
Pt to CT.
--- NOTE | 2022-05-30 20:30 | PC.NURSE ---
Pt to CT with ED RN.
--- NOTE | 2022-05-30 20:32 | PC.NURSE ---
TXA complete at this time.
--- NOTE | 2022-05-30 20:47 | PC.NURSE ---
Pt back from CT
[2022-05-30] MEDS: iohexoL 350 MG/ML 100 ML INFUS..BTL IV (20:48)
--- NOTE | 2022-05-30 20:54 | PC.NURSE ---
Pt chux pad changed at this time. Large amount or blood noted. Clots noted.
--- NOTE | 2022-05-30 21:02 | PC.NURSE ---
Attempting to pack pts vaginal area at this time. Pt tearful
[2022-05-30] MEDS: ondansetron HCL 4 MG/2 ML VIAL IVPUSH (21:17)
[2022-05-30] MEDS: 0.9 % Sodium Chloride 1,000 ML 999 ML IV (21:17)
[2022-05-30 21:28] LABS: IDNOW Serial# 08D9AD1C
[2022-05-30 21:29] LABS: COVID-19 Test Negative (Negative)
[2022-05-30 21:34] VITALS: BP 120/54; PULSE 72; RESP 18; TEMP 36.7
--- NOTE | 2022-05-30 21:35 | PC.NURSE ---
1 unit PRBCs initiated.
--- NOTE | 2022-05-30 21:39 | MHC.EDTECH ---
[facility]'s transfer line called at 2018 per Nona YOO,speaking with Azalia and gave patient demographics awaiting a call back. Received a call back from [facility] at 2032 speaking with Nona at this time. At 2032 accepted patient to the Emergency Room. Nurse to Nurse [phone] Claudia called at 2140 for a stat ALS transfer per Nona YOO,eta within 20mins.Rn aware
[2022-05-30 21:49] VITALS: BP 138/44; PULSE 77; RESP 20; TEMP 36.6
--- NOTE | 2022-05-30 22:03 | PC.NURSE ---
Report to [facility] crew. Pt to [facility] ED. Prior to discharge pham ordered for pt and pt refused.
== END 2022-05-30 22:07 | disposition short-term general hospital (02) ==
PROVIDERS: Physician Assistant; Emergency Provider Internal Medicine; PCP Family Medicine
DX: N93.9 Abnormal uterine and vaginal bleeding, unspecified (principal); C53.9 Malignant neoplasm of cervix uteri, unspecified; E27.8 Other specified disorders of adrenal gland; Z20.822 Contact with and (suspected) exposure to COVID-19; R19.01 Right upper quadrant abdominal swelling, mass and lump; G89.4 Chronic pain syndrome; Z92.21 Personal history of antineoplastic chemotherapy; Z87.891 Personal history of nicotine dependence; Z79.899 Other long term (current) drug therapy; R53.1 Weakness
CPT/HCPCS: 36415; 36430; 74177; 80053; 83690; 85025; 85610; 85730; 86850; 86900; 86901; 86923; 87635; 96374; 96375; 99285; J2405; P9016; Q9967

== ENCOUNTER 2022-06-22 19:00 | Emergency (ER) | payer MEDICARE, MEDICAID, SELFPAY ==
--- NOTE | 2022-06-22 19:36 | ED.GENADULT ---
HPI - General Adult General Chief complaint: Vaginal Bleeding <FREDO Laird - Last Filed: 06/22/22 19:37> Stated complaint: Blood in urine <FREDO Laird - Last Filed: 06/22/22 19:37> Time Seen by Provider: 06/22/22 21:34 <FREDO Laird - Last Filed: 06/22/22 19:37> Source: patient <Alejandro Kidd MD - Last Filed: 06/23/22 01:07> Mode of arrival: ambulatory <Alejandro Kidd MD - Last Filed: 06/23/22 01:07> Limitations: no limitations <Alejandro Kidd MD - Last Filed: 06/23/22 01:07> History of Present Illness HPI narrative: Patient has stage IV cervical cancer was seen here on 05/31 for vaginal bleed and hematuria patient transferred to [facility] according to patient it was not a vaginal bleed but mostly the bleeding from the urethra and and they found large mass in right at anal gland extending to retro caval space and retroperitoneum. Patient feeling anxious and dizzy patient H and H was 11.4/37 on arrival with her baseline of 13 patient denies any significant abdominal pain or flank pain <Alejandro Kidd MD - Last Filed: 06/23/22 01:07> Related Data Home medications: Previous Rx's Medication Instructions Recorded cane #1 ea 08/18/21 diclofenac sodium 1 % topical gel 2 g topical QID PRN pain #100 grams 08/18/21 (Arthritis Pain (diclofenac)) alendronate 70 mg tablet 70 mg PO QWEEK #12 tabs 11/01/21 adalimumab 40 mg/0.4 mL See Rx Instructions subcut 11/09/21 subcutaneous pen kit (Humira(CF) .COMPLEX #2 ea Pen) sertraline 50 mg tablet 50 mg PO DAILY 90 days #90 tabs 02/27/22 mirtazapine 15 mg tablet 15 mg PO DAILY 30 days #30 tabs 03/26/22 dexamethasone 4 mg tablet 4 mg PO BID #30 tabs 04/06/22 ondansetron 8 mg oral soluble film 8 mg PO Q8H PRN Nausea #60 ea 04/06/22 amoxicillin 500 mg tablet 500 mg PO Q12H 10 days #20 tabs 05/16/22 diaper,brief,adult,disposable #60 ea 05/20/22 ([place] Adult Brief) sulfamethoxazole 800 1 tab PO Q12H 5 days #10 tabs 05/20/22 mg-trimethoprim 160 mg tablet (Bactrim DS) lorazepam 1 mg tablet (Ativan) 1.5 mg PO Q8H PRN Anxiety 30 days 05/28/22 #135 tabs gabapentin 600 mg tablet 600 mg PO DAILY 30 days #30 tabs 06/12/22 food supplemt, lactose-reduced 1 ea PO DAILY 90 days #21,330 mL 06/14/22 (Ensure oral liquid) meclizine 12.5 mg tablet 12.5 mg PO DAILY PRN dizziness 30 06/19/22 days #14 tabs oxycodone 5 mg tablet 5 mg PO Q6H PRN Pain #60 tabs 06/19/22 morphine 30 mg tablet,extended 30 mg PO Q12H #60 tabs 06/22/22 release (MS Contin) lorazepam 1 mg tablet (Ativan) 1 mg PO BID PRN sleep #6 tabs 06/23/22 <FREDO Laird - Last Filed: 06/22/22 19:37> Allergies/adverse reactions: Allergies Allergy/AdvReac Type Severity Reaction Status Date / Time buprenorphine [Belbuca] Allergy Intermediate nausea Verified 05/23/22 14:55 <FREDO Laird - Last Filed: 06/22/22 19:37> Review of Systems Review of Systems: Yes all other systems are reviewed and are negative <Alejandro Kidd MD - Last Filed: 06/23/22 01:07> [facility], LAT[facility] Past Medical History Medical History: Medical History Back pain Cervical cancer Opiate abuse, episodic Osteoarthritis of both knees Osteopenia determined by x-ray Primary osteoarthritis of knees, bilateral Seropositive rheumatoid arthritis <FREDO Laird - Last Filed: 06/22/22 19:37> Surgical History: Surgical History History of appendectomy History of cholecystectomy History of D&C History of tonsillectomy <FREDO Laird - Last Filed: 06/22/22 19:37> Family History Family History: Family History Father Acute CVA (cerebrovascular accident) Mother Hypertension Hypercholesterolemia Brother Liver transplant status Family history of thyroid problem <FREDO Laird - Last Filed: 06/22/22 19:37> Social History Social History: Social History Household Members: Children Housing: House Are you a primary customer care agent to a significant other at home: Yes (mom) Do you presently have visiting nurse or other home services: No Alcohol intake: never Patient Tobacco Use Status: Former Tobacco user Quit Date: 2016 Tobacco use type: Cigarette e-Cigarette/Vaping Use: Never Used Second Hand Smoke Exposure: No Advance Directives: No Advance Directives Information Provided: No service: No Current occupational status: employed and 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 Cognitive needs: No Hearing needs: No Vision needs: Yes <FREDO Laird - Last Filed: 06/22/22 19:37> Physical Exam ED Vital Signs: Vital Signs - 24 hr 06/22/22 19:48 06/22/22 20:00 06/23/22 00:00 Temperature 98.2 F 98.1 F 98.1 F Pulse Rate 70 67 67 Respiratory Rate 16 16 16 Blood Pressure 153/75 H 122/68 143/76 H Pulse Oximetry 97 96 97 Oxygen Delivery Method Room Air Room Air Room Air BMI result Body Mass Index 20.7 <FREDO Laird - Last Filed: 06/22/22 19:37> Vital Signs - 24 hr 06/22/22 19:48 06/22/22 20:00 06/23/22 00:00 Temperature 98.2 F 98.1 F 98.1 F Pulse Rate 70 67 67 Respiratory Rate 16 16 16 Blood Pressure 153/75 H 122/68 143/76 H Pulse Oximetry 97 96 97 Oxygen Delivery Method Room Air Room Air Room Air BMI result Body Mass Index 20.7 <Alejandro Kidd MD - Last Filed: 06/23/22 01:07> Appearance: Alert. Oriented X3. No acute distress. Patient very anxious Eyes: No pallor/ icterus ENT: Pharynx normal. Oral Mucosa moist Neck: Normal inspection. Neck supple. CVS: Normal heart rate and rhythm. Pulses normal. Respiratory: No respiratory distress. Equal air entry bilateral, no wheezing/rales/rhonchi Abdomen: Soft and nontender. Bowel sounds are present, no mass palpable, no CVA tenderness Skin: Skin warm and dry. Normal skin color. Normal skin turgor. Extremities: No lower extremity edema. No calf tenderness Neuro: Oriented X 3. No motor deficit. <Alejandro Kidd MD - Last Filed: 06/23/22 01:07> Course Course Course Narrative: RME performed by Alyssa Conway PA-C. Patient is a 67 year old assigned female at presenting to the emergency department with heavy amounts of blood in her urine. Patient has stage 4 cancer and has needed multiple transfusions for this issue. Last month was transferred to [facility] [place]. Labs ordered. Patient taken directly back to the main ED. <FREDO Laird - Last Filed: 06/22/22 19:37> Medications Administered Discontinued Medications Generic Name Dose Route Start Last Admin Trade Name Freq PRN Reason Stop Dose Admin Tranexamic Acid 1,000 mg/ 60 mls @ 360 mls/hr 06/22/22 21:37 06/22/22 22:45 Sodium Chloride IV 06/22/22 21:46 Infused ONCE ONE Infusion Lorazepam 1 mg 06/22/22 21:54 06/22/22 22:12 Lorazepam 1 Mg Tablet PO 06/22/22 21:55 1 mg ONCE ONE Administration <FREDO Laird - Last Filed: 06/22/22 19:37> Medications Administered Discontinued Medications Generic Name Dose Route Start Last Admin Trade Name Freq PRN Reason Stop Dose Admin Tranexamic Acid 1,000 mg/ 60 mls @ 360 mls/hr 06/22/22 21:37 06/22/22 22:45 Sodium Chloride IV 06/22/22 21:46 Infused ONCE ONE Infusion Lorazepam 1 mg 06/22/22 21:54 06/22/22 22:12 Lorazepam 1 Mg Tablet PO 06/22/22 21:55 1 mg ONCE ONE Administration <Alejandro Kidd MD - Last Filed: 06/23/22 01:07> Medical Decision Making Medical Decision Making MDM Narrative: Patient urinated in the ER without any gross hematuria cough patient states that patient does get hematuria off and on vital stable H&H stable will discharge patient home patient has plan to see oncologist further evaluation <Alejandro Kidd MD - Last Filed: 06/23/22 01:07> Lab Data MDM Lab Attestation statement: I reviewed the patient's lab results. <Alejandro Kidd MD - Last Filed: 06/23/22 01:07> Result Diagrams: 06/22/22 20:30 06/22/22 20:30 <FREDO Laird - Last Filed: 06/22/22 19:37> Labs: Lab Results 06/22/22 06/22/22 06/22/22 Range/Units 20:30 20:30 21:11 WBC 7.8 (4.8-10.8) X10*3/uL RBC 4.58 (4.20-5.50) X10*6/uL Hgb 11.4 L (12.0-16.0) g/dl Hct 37.0 (37.0-47.0) % MCV 80.8 (80.0-98.0) fL MCH 24.9 L (27.0-33.0) pg MCHC 30.8 L (31.0-35.0) g/dl RDW 16.2 H (11.0-16.0) % Plt Count 343 (160-400) X10*3/uL MPV 9.1 L (9.4-12.3) fL Immature Gran % (Auto) 0.3 (0.0-0.4) % Neut % (Auto) 65.7 (45-73) % Lymph % (Auto) 20.8 (20-40) % [place] % (Auto) 8.3 (2-11) % Eos % (Auto) 4.0 (0-4) % Baso % (Auto) 0.9 (0-2) % Lymph # (Auto) 1.6 (1.2-4.9) X10*3/uL [place] # (Auto) 0.7 (0.1-1.2) X10*3/uL Eos # (Auto) 0.3 (0.0-0.4) X10*3/uL Baso # (Auto) 0.1 (0.0-0.2) X10*3/uL Abs Immat Gran (auto) 0.02 (0.00-0.03) X10*3/uL Absolute Neuts (auto) 5.2 (2.0-8.3) x10*3/uL Absolute Nucleated RBC 0.000 (0.0-0.012) X10*3/uL Nucleated RBC % (auto) 0.0 (0.0-0.2) /100WBC Sodium 140 (135-145) mmol/L Potassium 5.0 D (3.3-5.1) mmol/L Chloride 106 (96-108) mmol/L Carbon Dioxide 27 (22-29) mmol/L Anion Gap 12 (12-20) BUN 24 H (9-16) mg/dL Creatinine 0.85 (0.5-1.4) mg/dL Estim Creat Clear Calc 59.0 Estimated GFR > 60 Random Glucose 99 (60-115) mg/dL Calcium 9.1 (8.4-10.2) mg/dL Magnesium 2.2 (1.6-2.6) mg/dL Total Bilirubin 0.4 (0.0-1.0) mg/dL AST 30 (5-31) U/L ALT 19 (0-31) U/L Alkaline Phosphatase 128 H (39-117) U/L Total Protein 6.8 (6.5-8.0) g/dL Albumin 3.8 (3.5-5.0) g/dL Urine Color Urine Appearance Urine pH (5.0-9.0) Ur Specific [place] (1.005-1.025) Urine Protein (Neg-Trace) mg/dL Urine Glucose (UA) (Negative) mg/dL Urine Ketones (Negative) mg/dL Urine Blood (Negative) Urine Nitrite (Negative) Ur Leukocyte Esterase (Negative) Urine RBC (0-2) /HPF Urine WBC (0-5) /HPF Ur Squamous Epith Cells (0-2) /HPF Urine Bacteria (None Seen) Hyaline Casts (0-2) /LPF Blood Type A Positive Antibody Screen NEGATIVE 06/23/22 Range/Units 00:32 WBC (4.8-10.8) X10*3/uL RBC (4.20-5.50) X10*6/uL Hgb (12.0-16.0) g/dl Hct (37.0-47.0) % MCV (80.0-98.0) fL MCH (27.0-33.0) pg MCHC (31.0-35.0) g/dl RDW (11.0-16.0) % Plt Count (160-400) X10*3/uL MPV (9.4-12.3) fL Immature Gran % (Auto) (0.0-0.4) % Neut % (Auto) (45-73) % Lymph % (Auto) (20-40) % [place] % (Auto) (2-11) % Eos % (Auto) (0-4) % Baso % (Auto) (0-2) % Lymph # (Auto) (1.2-4.9) X10*3/uL [place] # (Auto) (0.1-1.2) X10*3/uL Eos # (Auto) (0.0-0.4) X10*3/uL Baso # (Auto) (0.0-0.2) X10*3/uL Abs Immat Gran (auto) (0.00-0.03) X10*3/uL Absolute Neuts (auto) (2.0-8.3) x10*3/uL Absolute Nucleated RBC (0.0-0.012) X10*3/uL Nucleated RBC % (auto) (0.0-0.2) /100WBC Sodium (135-145) mmol/L Potassium (3.3-5.1) mmol/L Chloride (96-108) mmol/L Carbon Dioxide (22-29) mmol/L Anion Gap (12-20) BUN (9-16) mg/dL Creatinine (0.5-1.4) mg/dL Estim Creat Clear Calc Estimated GFR Random Glucose (60-115) mg/dL Calcium (8.4-10.2) mg/dL Magnesium (1.6-2.6) mg/dL Total Bilirubin (0.0-1.0) mg/dL AST (5-31) U/L ALT (0-31) U/L Alkaline Phosphatase (39-117) U/L Total Protein (6.5-8.0) g/dL Albumin (3.5-5.0) g/dL Urine Color Yellow Urine Appearance Clear Urine pH 5.5 (5.0-9.0) Ur Specific [place] 1.020 (1.005-1.025) Urine Protein Trace (Neg-Trace) mg/dL Urine Glucose (UA) Negative (Negative) mg/dL Urine Ketones Negative (Negative) mg/dL Urine Blood Moderate (2+) H (Negative) Urine Nitrite Negative (Negative) Ur Leukocyte Esterase Negative (Negative) Urine RBC >20 H (0-2) /HPF Urine WBC 0-5 (0-5) /HPF Ur Squamous Epith Cells 0-2 (0-2) /HPF Urine Bacteria None Seen (None Seen) Hyaline Casts 0-2 (0-2) /LPF Blood Type Antibody Screen <FREDO Laird - Last Filed: 06/22/22 19:37> Lab Results 06/22/22 06/22/22 06/22/22 Range/Units 20:30 20:30 21:11 WBC 7.8 (4.8-10.8) X10*3/uL RBC 4.58 (4.20-5.50) X10*6/uL Hgb 11.4 L (12.0-16.0) g/dl Hct 37.0 (37.0-47.0) % MCV 80.8 (80.0-98.0) fL MCH 24.9 L (27.0-33.0) pg MCHC 30.8 L (31.0-35.0) g/dl RDW 16.2 H (11.0-16.0) % Plt Count 343 (160-400) X10*3/uL MPV 9.1 L (9.4-12.3) fL Immature Gran % (Auto) 0.3 (0.0-0.4) % Neut % (Auto) 65.7 (45-73) % Lymph % (Auto) 20.8 (20-40) % [place] % (Auto) 8.3 (2-11) % Eos % (Auto) 4.0 (0-4) % Baso % (Auto) 0.9 (0-2) % Lymph # (Auto) 1.6 (1.2-4.9) X10*3/uL [place] # (Auto) 0.7 (0.1-1.2) X10*3/uL Eos # (Auto) 0.3 (0.0-0.4) X10*3/uL Baso # (Auto) 0.1 (0.0-0.2) X10*3/uL Abs Immat Gran (auto) 0.02 (0.00-0.03) X10*3/uL Absolute Neuts (auto) 5.2 (2.0-8.3) x10*3/uL Absolute Nucleated RBC 0.000 (0.0-0.012) X10*3/uL Nucleated RBC % (auto) 0.0 (0.0-0.2) /100WBC Sodium 140 (135-145) mmol/L Potassium 5.0 D (3.3-5.1) mmol/L Chloride 106 (96-108) mmol/L Carbon Dioxide 27 (22-29) mmol/L Anion Gap 12 (12-20) BUN 24 H (9-16) mg/dL Creatinine 0.85 (0.5-1.4) mg/dL Estim Creat Clear Calc 59.0 Estimated GFR > 60 Random Glucose 99 (60-115) mg/dL Calcium 9.1 (8.4-10.2) mg/dL Magnesium 2.2 (1.6-2.6) mg/dL Total Bilirubin 0.4 (0.0-1.0) mg/dL AST 30 (5-31) U/L ALT 19 (0-31) U/L Alkaline Phosphatase 128 H (39-117) U/L Total Protein 6.8 (6.5-8.0) g/dL Albumin 3.8 (3.5-5.0) g/dL Urine Color Urine Appearance Urine pH (5.0-9.0) Ur Specific [place] (1.005-1.025) Urine Protein (Neg-Trace) mg/dL Urine Glucose (UA) (Negative) mg/dL Urine Ketones (Negative) mg/dL Urine Blood (Negative) Urine Nitrite (Negative) Ur Leukocyte Esterase (Negative) Urine RBC (0-2) /HPF Urine WBC (0-5) /HPF Ur Squamous Epith Cells (0-2) /HPF Urine Bacteria (None Seen) Hyaline Casts (0-2) /LPF Blood Type A Positive Antibody Screen NEGATIVE 06/23/22 Range/Units 00:32 WBC (4.8-10.8) X10*3/uL RBC (4.20-5.50) X10*6/uL Hgb (12.0-16.0) g/dl Hct (37.0-47.0) % MCV (80.0-98.0) fL MCH (27.0-33.0) pg MCHC (31.0-35.0) g/dl RDW (11.0-16.0) % Plt Count (160-400) X10*3/uL MPV (9.4-12.3) fL Immature Gran % (Auto) (0.0-0.4) % Neut % (Auto) (45-73) % Lymph % (Auto) (20-40) % [place] % (Auto) (2-11) % Eos % (Auto) (0-4) % Baso % (Auto) (0-2) % Lymph # (Auto) (1.2-4.9) X10*3/uL [place] # (Auto) (0.1-1.2) X10*3/uL Eos # (Auto) (0.0-0.4) X10*3/uL Baso # (Auto) (0.0-0.2) X10*3/uL Abs Immat Gran (auto) (0.00-0.03) X10*3/uL Absolute Neuts (auto) (2.0-8.3) x10*3/uL Absolute Nucleated RBC (0.0-0.012) X10*3/uL Nucleated RBC % (auto) (0.0-0.2) /100WBC Sodium (135-145) mmol/L Potassium (3.3-5.1) mmol/L Chloride (96-108) mmol/L Carbon Dioxide (22-29) mmol/L Anion Gap (12-20) BUN (9-16) mg/dL Creatinine (0.5-1.4) mg/dL Estim Creat Clear Calc Estimated GFR Random Glucose (60-115) mg/dL Calcium (8.4-10.2) mg/dL Magnesium (1.6-2.6) mg/dL Total Bilirubin (0.0-1.0) mg/dL AST (5-31) U/L ALT (0-31) U/L Alkaline Phosphatase (39-117) U/L Total Protein (6.5-8.0) g/dL Albumin (3.5-5.0) g/dL Urine Color Yellow Urine Appearance Clear Urine pH 5.5 (5.0-9.0) Ur Specific [place] 1.020 (1.005-1.025) Urine Protein Trace (Neg-Trace) mg/dL Urine Glucose (UA) Negative (Negative) mg/dL Urine Ketones Negative (Negative) mg/dL Urine Blood Moderate (2+) H (Negative) Urine Nitrite Negative (Negative) Ur Leukocyte Esterase Negative (Negative) Urine RBC >20 H (0-2) /HPF Urine WBC 0-5 (0-5) /HPF Ur Squamous Epith Cells 0-2 (0-2) /HPF Urine Bacteria None Seen (None Seen) Hyaline Casts 0-2 (0-2) /LPF Blood Type Antibody Screen <Alejandro Kidd MD - Last Filed: 06/23/22 01:07> Discharge Plan Discharge Clinical Impression: Hematuria <FREDO Laird - Last Filed: 06/22/22 19:37> Patient Disposition: Home, Self-Care <FREDO Laird - Last Filed: 06/22/22 19:37> Instructions: Hematuria (ED) <FREDO Laird - Last Filed: 06/22/22 19:37> Additional Instructions: Drink plenty of fluids and follow-up with your oncologist Ativan for anxiety <FREDO Laird - Last Filed: 06/22/22 19:37> Prescriptions: New lorazepam [Ativan] 1 mg tablet 1 mg PO BID PRN (Reason: sleep) Qty: 6 0RF No Action alendronate 70 mg tablet 70 mg PO QWEEK Qty: 12 0RF sertraline 50 mg tablet 50 mg PO DAILY 90 Days Qty: 90 3RF mirtazapine 15 mg tablet 15 mg PO DAILY 30 Days Qty: 30 0RF (DME) [place] Adult Brief Misc See Rx Instructions .Route Qty: 60 2RF Rx Instructions: 2 daily As directed, 30 days sulfamethoxazole-trimethoprim [Bactrim DS] 800-160 mg tablet 1 tab PO Q12H 5 Days Qty: 10 0RF lorazepam [Ativan] 1 mg tablet 1.5 mg PO Q8H PRN (Reason: Anxiety) 30 Days Qty: 135 0RF Rx Instructions: [employer] verified. Partial refill upon request. gabapentin 600 mg tablet 600 mg PO DAILY 30 Days Qty: 30 1RF Ensure Liquid 1 ea PO DAILY 90 Days Qty: 46045 3RF Rx Instructions: Butter Pecan. meclizine 12.5 mg tablet 12.5 mg PO DAILY PRN (Reason: dizziness) 30 Days Qty: 14 0RF dexamethasone 4 mg Tablet 4 mg PO BID Qty: 30 3RF Rx Instructions: For 2 days after chemotherapy ondansetron 8 mg Film 8 mg PO Q8H PRN (Reason: Nausea) Qty: 60 3RF oxycodone 5 mg Tablet 5 mg PO Q6H PRN (Reason: Pain) Qty: 60 0RF Rx Instructions: Partial Fill upon patient request. morphine [MS Contin] 30 mg Tablet Extended Release 30 mg PO Q12H Qty: 60 0RF Rx Instructions: Partial Fill upon patient request. diclofenac sodium [Arthritis Pain (diclofenac)] 1 % gel 2 g topical QID PRN (Reason: pain) Qty: 100 0RF Rx Instructions: apply to single elbow, wrist or hand; for hand includes palm/fingers/back of hand (DME) cane Device See Rx Instructions .Route Qty: 1 0RF Rx Instructions: As directed amoxicillin 500 mg tablet 500 mg PO Q12H 10 Days Qty: 20 0RF Humira(CF) Pen 40 mg/0.4 mL pen injector kit See Rx Instructions subcut .COMPLEX Qty: 2 1RF Rx Instructions: inject one - 40 mg/0.4 mL pen every 2 weeks subcut <FREDO Laird - Last Filed: 06/22/22 19:37>
[2022-06-22 19:48] VITALS: BP 153/75; PULSE 70; RESP 16; TEMP 36.8; O2SAT 97; BMI 20.7
[2022-06-22 20:00] VITALS: BP 122/68; PULSE 67; RESP 16; TEMP 36.7; O2SAT 96
[2022-06-22 20:45] LABS: MANUAL DIFF FLAG NO
[2022-06-22 20:47] LABS: Basophils Absolute Auto 0.1 X10*3/uL (0.0-0.2); Basophils Percent Auto 0.9 % (0-2); Eosinophils Absolute Auto 0.3 X10*3/uL (0.0-0.4); Hemoglobin 11.4 g/dl (12.0-16.0); Imm Gran Abs Auto 0.02 X10*3/uL (0.00-0.03); Imm Gran Pct Auto 0.3 % (0.0-0.4); Lymphocytes Absolute Auto 1.6 X10*3/uL (1.2-4.9); Lymphocytes Percent Auto 20.8 % (20-40); Mean Corpuscular HGB Conc 30.8 g/dl (31.0-35.0); Mean Corpuscular Hemoglobin 24.9 pg (27.0-33.0); Mean Corpuscular Volume 80.8 fL (80.0-98.0); Mean Platelet Volume 9.1 fL (9.4-12.3); Monocytes Absolute Auto 0.7 X10*3/uL (0.1-1.2); Monocytes Percent Auto 8.3 % (2-11); Neutrophils Absolute Auto 5.2 x10*3/uL (2.0-8.3); Neutrophils Percent Auto 65.7 % (45-73); Platelet Count 343 X10*3/uL (160-400); Red Blood Count 4.58 X10*6/uL (4.20-5.50); Red Cell Distribution Width 16.2 % (11.0-16.0); White Blood Count 7.8 X10*3/uL (4.8-10.8)
[2022-06-22 21:05] LABS: Alanine Aminotransferase 19 U/L (0-31); Albumin Level 3.8 g/dL (3.5-5.0); Alkaline Phosphatase 128 U/L (39-117); Anion Gap 12 (12-20); Aspartate Amino Transferase 30 U/L (5-31); Bilirubin Total 0.4 mg/dL (0.0-1.0); Blood Urea Nitrogen 24 mg/dL (9-16); Calcium 9.1 mg/dL (8.4-10.2); Carbon Dioxide 27 mmol/L (22-29); Chloride 106 mmol/L (96-108); Estimated Glomerular Filt Rate > 60; Glucose Random 99 mg/dL (60-115); Magnesium 2.2 mg/dL (1.6-2.6); Sodium 140 mmol/L (135-145); Total Protein 6.8 g/dL (6.5-8.0)
[2022-06-22] MEDS: Tranexamic Acid 1,000 MG in 0.9 % Sodium Chloride 50 ML 360 MG IV (22:12)
[2022-06-22] MEDS: LORazepam 1 MG TABLET PO (22:12)
[2022-06-23] VITALS: BP 143/76; PULSE 67; RESP 16; TEMP 36.7; O2SAT 97
[2022-06-23 00:39] LABS: Appearance Urine Clear; Color Urine Yellow; Glucose Urine UA Negative (Negative); Leukocyte Esterase Urine Negative (Negative); Nitrite Urine Negative (Negative); PH 5.5 (5.0-9.0); UMIC TRIGGER UACC YES; Urine Blood Moderate (2+) (Negative); Urine Ketones Negative (Negative); Urine Protein Trace mg/dL (Neg-Trace)
[2022-06-23 00:42] LABS: Bacteria Urine None Seen (None Seen); Hyaline Casts Urine 0-2 /LPF (0-2); RBC Urine >20 /HPF (0-2); Squamous Epithelial Cell Urine 0-2 /HPF (0-2); WBC Urine 0-5 /HPF (0-5)
== END 2022-06-23 01:52 | disposition home or self-care (01) ==
PROVIDERS: Physician Assistant Medical; Emergency Provider Internal Medicine; PCP Family Medicine
DX: R31.9 Hematuria, unspecified (principal); F41.9 Anxiety disorder, unspecified; C53.9 Malignant neoplasm of cervix uteri, unspecified; F11.10 Opioid abuse, uncomplicated; Z79.899 Other long term (current) drug therapy; Z87.891 Personal history of nicotine dependence
CPT/HCPCS: 36415; 80053; 81001; 83735; 85025; 86850; 86900; 86901; 96365; 99283; 99284

== ENCOUNTER 2022-06-30 00:40 | Emergency (ER) | payer MEDICARE, MEDICAID, SELFPAY ==
[2022-06-30 00:45] VITALS: BP 103/62; BP 140/72; PULSE 77; PULSE 85; RESP 18; TEMP 37; O2SAT 96; O2SAT 98; BMI 20.7
--- NOTE | 2022-06-30 01:23 | ED_ITS ---
HPI - Female Genitourinary General Chief complaint: Urogenital-Female <Annamarie Stack MD - Last Filed: 06/30/22 01:26> Stated complaint: blood in urine <Annamarie Stack MD - Last Filed: 06/30/22 01:26> Time Seen by Provider: 06/30/22 01:12 <Annamarie Stack MD - Last Filed: 06/30/22 01:26> Source: patient <Annamraie Stack MD - Last Filed: 06/30/22 01:26> Mode of arrival: EMS <Annamarie Stack MD - Last Filed: 06/30/22 01:26> Limitations: no limitations <Annamarie Stack MD - Last Filed: 06/30/22 01:26> History of Present Illness HPI Narrative: Patient comes to the emergency room complaining of hematuria. Patient states that she was seen here on the , 1 week ago for same complaint. Patient states that she may have a small amount of dysuria, no fever chills, no flank pain. Of note, patient has stage IV cervical cancer, patient has history of a large mass in the pelvic area, she was diagnosed with a large pelvic mass, patient being seen at [facility]. Back in May, patient was not sure if she was having vaginal or ureteral bleeding. Per previous records, seems that most of the bleeding is from the urethra rather than vaginal. <Annamarie Stack MD - Last Filed: 06/30/22 01:26> Related Data Home medications: Previous Rx's Medication Instructions Recorded cane #1 ea 08/18/21 diclofenac sodium 1 % topical gel 2 g topical QID PRN pain #100 grams 08/18/21 (Arthritis Pain (diclofenac)) alendronate 70 mg tablet 70 mg PO QWEEK #12 tabs 11/01/21 adalimumab 40 mg/0.4 mL See Rx Instructions subcut 11/09/21 subcutaneous pen kit (Humira(CF) .COMPLEX #2 ea Pen) mirtazapine 15 mg tablet 15 mg PO DAILY 30 days #30 tabs 03/26/22 dexamethasone 4 mg tablet 4 mg PO BID #30 tabs 04/06/22 ondansetron 8 mg oral soluble film 8 mg PO Q8H PRN Nausea #60 ea 04/06/22 amoxicillin 500 mg tablet 500 mg PO Q12H 10 days #20 tabs 03/08/23 diaper,brief,adult,disposable #60 ea 05/20/22 ([place] Adult Brief) gabapentin 600 mg tablet 600 mg PO DAILY 30 days #30 tabs 06/12/22 food supplemt, lactose-reduced 1 ea PO DAILY 90 days #21,330 mL 06/14/22 (Ensure oral liquid) oxycodone 5 mg tablet 5 mg PO Q6H PRN Pain #60 tabs 06/19/22 morphine 30 mg tablet,extended 30 mg PO Q12H #60 tabs 06/22/22 release (MS Contin) meclizine 12.5 mg tablet 12.5 mg PO DAILY PRN dizziness 30 06/28/22 days #14 tabs lorazepam 1 mg tablet 1 mg PO TID PRN anxiety 15 days 06/29/22 #45 tabs sertraline 50 mg tablet 75 mg PO DAILY 90 days #135 tabs 06/29/22 <Annamarie Stack MD - Last Filed: 06/30/22 01:26> Allergies/Adverse reactions: Allergies Allergy/AdvReac Type Severity Reaction Status Date / Time buprenorphine [Belbuca] Allergy Intermediate nausea Verified 06/30/22 00:53 <Annamarie Stack MD - Last Filed: 06/30/22 01:26> Review of Systems Review of Systems: Constitutional : No Weight loss, No Fever, No Chills, No Night Sweats, No Fatigue, No Malaise ENT/Mouth : No Hearing loss, No Ear Pain, No Nasal Congestion, No Sinus Pain, No Hoarseness, No sore throat, No Rhinorrhea, No Swallowing Difficulty Eyes: No Eye Pain, No Swelling, No Redness, No Foreign Body, No Discharge, No Vision Changes Cardiovascular : No Chest Pain, No SOB, No Dyspnea on Exertion, No Orthopnea, No Edema, No Palpitations Respiratory : No Cough, No Sputum, No Wheezing, No Smoke Exposure, No Dyspnea Gastrointestinal : No Nausea, No Vomiting, No Diarrhea, No Constipation, No abdo sam Pain, No Hematochezia, No Melena Genitourinary : Complaining of hematuria and dysuria cough No Urinary Incontinence, No Urgency, No Flank Pain, No Urinary Flow Changes, No Hesitancy Musculoskeletal : No joint pain, No Myalgias, No Joint Swelling Skin : No Skin Lesions, No rash Neuro : No Weakness, No Numbness, No Paresthesias, No Loss of Consciousness, No Dizziness, No Headache Psych : No Anxiety/Panic, No Depression, No SI/HI/AH/VH, No Social Issues, Heme/Lymph: No Bruising, No Bleeding,No Lymphadenopathy Endocrine : No Polyuria, No Polydipsia, No Temperature Intolerance <Annamarie Stack MD - Last Filed: 06/30/22 01:26> [facility] Past Medical History Medical History: Medical History Back pain Cervical cancer Opiate abuse, episodic Osteoarthritis of both knees Osteopenia determined by x-ray Primary osteoarthritis of knees, bilateral Seropositive rheumatoid arthritis <Annamarie Stack MD - Last Filed: 06/30/22 01:26> Surgical History: Surgical History History of appendectomy History of cholecystectomy History of D&C History of tonsillectomy <Annamarie Stack MD - Last Filed: 06/30/22 01:26> Family History Family History: Family History Father Acute CVA (cerebrovascular accident) Mother Hypertension Hypercholesterolemia Brother Liver transplant status Family history of thyroid problem <Annamarie Stack MD - Last Filed: 06/30/22 01:26> Social History Social History: Social History Household Members: Children Housing: House Are you a primary respite care provider to a significant other at home: Yes (mom) Do you presently have visiting nurse or other home services: No Alcohol intake: never Patient Tobacco Use Status: Former Tobacco user Quit Date: 2016 Tobacco use type: Cigarette e-Cigarette/Vaping Use: Never Used Second Hand Smoke Exposure: No Advance Directives: No Advance Directives Information Provided: Yes service: No Current occupational status: employed and 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 Cognitive needs: No Hearing needs: No Vision needs: Yes <Annamarie Stack MD - Last Filed: 06/30/22 01:26> Physical Exam Vital Signs: Vital Signs: Last Vital Signs Temp 98.6 F 06/30/22 00:45 Pulse 77 06/30/22 00:45 Resp 18 06/30/22 00:45 BP 103/62 06/30/22 00:45 Pulse Ox 96 06/30/22 00:45 O2 Del Method Room Air 06/30/22 00:45 BMI result Body Mass Index 20.7 <Annamarie Stack MD - Last Filed: 06/30/22 01:26> Vital Signs: Last Vital Signs Temp 98.6 F 06/30/22 00:45 Pulse 77 06/30/22 00:45 Resp 18 06/30/22 00:45 BP 103/62 06/30/22 00:45 Pulse Ox 96 06/30/22 00:45 O2 Del Method Room Air 06/30/22 00:45 BMI result Body Mass Index 20.7 <Daniel Vega MD - Last Filed: 06/30/22 02:53> Const: Other: Appearance: Alert. Oriented X3. No acute distress. Eyes: Pupils equal, round and reactive to light. ENT: Pharynx normal. Neck: Normal inspection. Neck supple. No lymph nodes noted. No crepitus CVS: Normal heart rate and rhythm. Pulses normal. Normal S1 and S2 Respiratory: No respiratory distress. Breath sounds normal. No Wheezing. No rales Abdomen: Soft and nontender. No rigidity. No distention. Skin: Skin warm and dry. Normal skin color. Normal skin turgor. Extremities: No lower extremity edema. No Lacerations. No Rash Neuro: Oriented X 3. No motor deficit. No sensory deficit. Moving all extremities. No slurred speech. CN 2 through 12 grossly intact Psych: calm, cooperative, normal affect <Annamarie Stack MD - Last Filed: 06/30/22 01:26> Course Course Course Narrative: -labs and urinalysis pending -patient states that she has history of anemia, every 6 weeks approximately she needs a blood transfusion. <Annamarie Stack MD - Last Filed: 06/30/22 01:26> Reevaluation(s) Reevaluation #1: Urinalysis was negative for infection. She does have evidence of hematuria. She will follow-up with her urologist at [facility]. She will return for any worsening or concerning symptoms. <Daniel Vega MD - Last Filed: 06/30/22 02:53> Time: 02:52 <Daniel Vega MD - Last Filed: 06/30/22 02:53> Medical Decision Making Lab Data Result Diagrams: 06/30/22 01:36 06/30/22 01:36 <Annamarie Stack MD - Last Filed: 06/30/22 01:26> Labs: Lab Results 06/30/22 06/30/22 06/30/22 Range/Units 01:30 01:36 01:36 WBC 6.3 (4.8-10.8) X10*3/uL RBC 4.23 (4.20-5.50) X10*6/uL Hgb 10.8 L (12.0-16.0) g/dl Hct 34.7 L (37.0-47.0) % MCV 82.0 (80.0-98.0) fL MCH 25.5 L (27.0-33.0) pg MCHC 31.1 (31.0-35.0) g/dl RDW 16.6 H (11.0-16.0) % Plt Count 317 (160-400) X10*3/uL MPV 9.0 L (9.4-12.3) fL Immature Gran % (Auto) 0.3 (0.0-0.4) % Neut % (Auto) 72.2 (45-73) % Lymph % (Auto) 15.4 L (20-40) % [place] % (Auto) 8.1 (2-11) % Eos % (Auto) 3.2 (0-4) % Baso % (Auto) 0.8 (0-2) % Lymph # (Auto) 1.0 L (1.2-4.9) X10*3/uL [place] # (Auto) 0.5 (0.1-1.2) X10*3/uL Eos # (Auto) 0.2 (0.0-0.4) X10*3/uL Baso # (Auto) 0.1 (0.0-0.2) X10*3/uL Abs Immat Gran (auto) 0.02 (0.00-0.03) X10*3/uL Absolute Neuts (auto) 4.6 (2.0-8.3) x10*3/uL Absolute Nucleated RBC 0.000 (0.0-0.012) X10*3/uL Nucleated RBC % (auto) 0.0 (0.0-0.2) /100WBC Sodium 135 (135-145) mmol/L Potassium 4.4 (3.3-5.1) mmol/L Chloride 97 (96-108) mmol/L Carbon Dioxide 30 H (22-29) mmol/L Anion Gap 12 (12-20) BUN 21 H (9-16) mg/dL Creatinine 0.87 (0.5-1.4) mg/dL Estim Creat Clear Calc 57.6 Estimated GFR > 60 Random Glucose 104 (60-115) mg/dL Calcium 8.8 (8.4-10.2) mg/dL Urine Color BROWN Urine Appearance Turbid Urine pH 7.0 (5.0-9.0) Ur Specific [place] 1.010 (1.005-1.025) Urine Protein 300 (3+) H (Neg-Trace) mg/dL Urine Glucose (UA) 250 H (Negative) mg/dL Urine Ketones 15 (Negative) mg/dL Urine Blood Large (3+) H (Negative) Urine Nitrite Positive H (Negative) Ur Leukocyte Esterase Small (1+) H (Negative) Urine RBC >20 H (0-2) /HPF Urine WBC 6-10 (0-5) /HPF Ur Squamous Epith Cells 0-2 (0-2) /HPF Urine Bacteria 1+ (None Seen) Hyaline Casts 0-2 (0-2) /LPF <Annamarie Stack MD - Last Filed: 06/30/22 01:26> Lab Results 06/30/22 06/30/22 06/30/22 Range/Units 01:30 01:36 01:36 WBC 6.3 (4.8-10.8) X10*3/uL RBC 4.23 (4.20-5.50) X10*6/uL Hgb 10.8 L (12.0-16.0) g/dl Hct 34.7 L (37.0-47.0) % MCV 82.0 (80.0-98.0) fL MCH 25.5 L (27.0-33.0) pg MCHC 31.1 (31.0-35.0) g/dl RDW 16.6 H (11.0-16.0) % Plt Count 317 (160-400) X10*3/uL MPV 9.0 L (9.4-12.3) fL Immature Gran % (Auto) 0.3 (0.0-0.4) % Neut % (Auto) 72.2 (45-73) % Lymph % (Auto) 15.4 L (20-40) % [place] % (Auto) 8.1 (2-11) % Eos % (Auto) 3.2 (0-4) % Baso % (Auto) 0.8 (0-2) % Lymph # (Auto) 1.0 L (1.2-4.9) X10*3/uL [place] # (Auto) 0.5 (0.1-1.2) X10*3/uL Eos # (Auto) 0.2 (0.0-0.4) X10*3/uL Baso # (Auto) 0.1 (0.0-0.2) X10*3/uL Abs Immat Gran (auto) 0.02 (0.00-0.03) X10*3/uL Absolute Neuts (auto) 4.6 (2.0-8.3) x10*3/uL Absolute Nucleated RBC 0.000 (0.0-0.012) X10*3/uL Nucleated RBC % (auto) 0.0 (0.0-0.2) /100WBC Sodium 135 (135-145) mmol/L Potassium 4.4 (3.3-5.1) mmol/L Chloride 97 (96-108) mmol/L Carbon Dioxide 30 H (22-29) mmol/L Anion Gap 12 (12-20) BUN 21 H (9-16) mg/dL Creatinine 0.87 (0.5-1.4) mg/dL Estim Creat Clear Calc 57.6 Estimated GFR > 60 Random Glucose 104 (60-115) mg/dL Calcium 8.8 (8.4-10.2) mg/dL Urine Color BROWN Urine Appearance Turbid Urine pH 7.0 (5.0-9.0) Ur Specific [place] 1.010 (1.005-1.025) Urine Protein 300 (3+) H (Neg-Trace) mg/dL Urine Glucose (UA) 250 H (Negative) mg/dL Urine Ketones 15 (Negative) mg/dL Urine Blood Large (3+) H (Negative) Urine Nitrite Positive H (Negative) Ur Leukocyte Esterase Small (1+) H (Negative) Urine RBC >20 H (0-2) /HPF Urine WBC 6-10 (0-5) /HPF Ur Squamous Epith Cells 0-2 (0-2) /HPF Urine Bacteria 1+ (None Seen) Hyaline Casts 0-2 (0-2) /LPF <Daniel Vega MD - Last Filed: 06/30/22 02:53> Discharge Plan Discharge Clinical Impression: Hematuria <Annamarie Stack MD - Last Filed: 06/30/22 01:26> Patient Disposition: Home, Self-Care <Annamarie Stack MD - Last Filed: 06/30/22 01:26> Instructions: Hematuria (ED) <Annamarie Stack MD - Last Filed: 06/30/22 01:26> Prescriptions: No Action alendronate 70 mg tablet 70 mg PO QWEEK Qty: 12 0RF mirtazapine 15 mg tablet 15 mg PO DAILY 30 Days Qty: 30 0RF (DME) [place] Adult Brief Misc See Rx Instructions .Route Qty: 60 2RF Rx Instructions: 2 daily As directed, 30 days gabapentin 600 mg tablet 600 mg PO DAILY 30 Days Qty: 30 1RF Ensure Liquid 1 ea PO DAILY 90 Days Qty: 80755 3RF Rx Instructions: Pushpa Rob. meclizine 12.5 mg tablet 12.5 mg PO DAILY PRN (Reason: dizziness) 30 Days Qty: 14 0RF dexamethasone 4 mg Tablet 4 mg PO BID Qty: 30 3RF Rx Instructions: For 2 days after chemotherapy ondansetron 8 mg Film 8 mg PO Q8H PRN (Reason: Nausea) Qty: 60 3RF oxycodone 5 mg Tablet 5 mg PO Q6H PRN (Reason: Pain) Qty: 60 0RF Rx Instructions: Partial Fill upon patient request. morphine [MS Contin] 30 mg Tablet Extended Release 30 mg PO Q12H Qty: 60 0RF Rx Instructions: Partial Fill upon patient request. diclofenac sodium [Arthritis Pain (diclofenac)] 1 % gel 2 g topical QID PRN (Reason: pain) Qty: 100 0RF Rx Instructions: apply to single elbow, wrist or hand; for hand includes palm/fingers/back of hand (DME) cane Device See Rx Instructions .Route Qty: 1 0RF Rx Instructions: As directed amoxicillin 500 mg tablet 500 mg PO Q12H 10 Days Qty: 20 0RF lorazepam 1 mg tablet 1 mg PO TID PRN (Reason: anxiety) 15 Days Qty: 45 0RF Rx Instructions: [employer] verified. Partial refill upon request. sertraline 50 mg tablet 75 mg PO DAILY 90 Days Qty: 135 3RF Humira(CF) Pen 40 mg/0.4 mL pen injector kit See Rx Instructions subcut .COMPLEX Qty: 2 1RF Rx Instructions: inject one - 40 mg/0.4 mL pen every 2 weeks subcut <Annamarie Stack MD - Last Filed: 06/30/22 01:26> Referrals: Dean Villalba MD [Primary Care Provider] - 3 days (Would also consider following up with your urologist on Saturday or Saturday.) <Annamarie Stack MD - Last Filed: 06/30/22 01:26>
[2022-06-30 01:41] LABS: Basophils Absolute Auto 0.1 X10*3/uL (0.0-0.2); Basophils Percent Auto 0.8 % (0-2); Eosinophils Absolute Auto 0.2 X10*3/uL (0.0-0.4); Eosinophils Percent Auto 3.2 % (0-4); Hematocrit 34.7 % (37.0-47.0); Hemoglobin 10.8 g/dl (12.0-16.0); Imm Gran Abs Auto 0.02 X10*3/uL (0.00-0.03); Imm Gran Pct Auto 0.3 % (0.0-0.4); Lymphocytes Percent Auto 15.4 % (20-40); MANUAL DIFF FLAG NO; Mean Corpuscular HGB Conc 31.1 g/dl (31.0-35.0); Mean Corpuscular Hemoglobin 25.5 pg (27.0-33.0); Monocytes Absolute Auto 0.5 X10*3/uL (0.1-1.2); Monocytes Percent Auto 8.1 % (2-11); Neutrophils Absolute Auto 4.6 x10*3/uL (2.0-8.3); Neutrophils Percent Auto 72.2 % (45-73); Platelet Count 317 X10*3/uL (160-400); Red Blood Count 4.23 X10*6/uL (4.20-5.50); Red Cell Distribution Width 16.6 % (11.0-16.0); White Blood Count 6.3 X10*3/uL (4.8-10.8)
[2022-06-30 01:59] LABS: Anion Gap 12 (12-20); Blood Urea Nitrogen 21 mg/dL (9-16); Calcium 8.8 mg/dL (8.4-10.2); Carbon Dioxide 30 mmol/L (22-29); Chloride 97 mmol/L (96-108); Creatinine Clr Calc Pharmacy 57.6; Estimated Glomerular Filt Rate > 60; Glucose Random 104 mg/dL (60-115); Potassium 4.4 mmol/L (3.3-5.1); Sodium 135 mmol/L (135-145)
[2022-06-30 02:22] LABS: Appearance Urine Turbid; Color Urine BROWN; Glucose Urine UA 250 mg/dL (Negative); Leukocyte Esterase Urine Small (1+) (Negative); Nitrite Urine Positive (Negative); UMIC TRIGGER UACC YES; Urine Blood Large (3+) (Negative); Urine Ketones 15 mg/dL (Negative); Urine Protein 300 (3+) mg/dL (Neg-Trace)
[2022-06-30 02:42] LABS: UACC Culture Trigger YES
[2022-06-30 02:43] LABS: Bacteria Urine 1+ (None Seen); Hyaline Casts Urine 0-2 /LPF (0-2); RBC Urine >20 /HPF (0-2); Squamous Epithelial Cell Urine 0-2 /HPF (0-2)
[2022-06-30 03:05] VITALS: BP 99/63; PULSE 69; RESP 16; TEMP 36.4; O2SAT 96
--- NOTE | 2022-06-30 03:07 | PC.NURSE ---
pt discharge ready. per dr burnett okjasiel for pt to wait for ride until AM. charger tester made aware. pt provided with warm blanket lights dimmed. no new requests from pt at this time
[2022-06-30] MEDS: LORazepam 1 MG TABLET PO (05:00)
[2022-06-30] MEDS: oxyCODONE HCl Immed Release 5 MG TABLET PO (05:00)
[2022-06-30 05:15] LABS: Basophils Percent Auto 0.5 % (0-2); Eosinophils Absolute Auto 0.2 X10*3/uL (0.0-0.4); Eosinophils Percent Auto 4.2 % (0-4); Hemoglobin 11.1 g/dl (12.0-16.0); Imm Gran Abs Auto 0.02 X10*3/uL (0.00-0.03); Imm Gran Pct Auto 0.4 % (0.0-0.4); Lymphocytes Absolute Auto 1.2 X10*3/uL (1.2-4.9); Lymphocytes Percent Auto 22.4 % (20-40); MANUAL DIFF FLAG NO; Mean Corpuscular HGB Conc 32.6 g/dl (31.0-35.0); Mean Corpuscular Hemoglobin 25.7 pg (27.0-33.0); Mean Corpuscular Volume 78.7 fL (80.0-98.0); Mean Platelet Volume 9.1 fL (9.4-12.3); Monocytes Absolute Auto 0.5 X10*3/uL (0.1-1.2); Monocytes Percent Auto 8.5 % (2-11); Neutrophils Absolute Auto 3.6 x10*3/uL (2.0-8.3); Platelet Count 333 X10*3/uL (160-400); Red Blood Count 4.32 X10*6/uL (4.20-5.50); Red Cell Distribution Width 16.5 % (11.0-16.0); White Blood Count 5.5 X10*3/uL (4.8-10.8)
--- NOTE | 2022-06-30 05:25 | PC.NURSE ---
pt rang call anthony asking for assistance in changing brief. pt reports to this rn continued bleeding. pt requested to speak with dr burnett. this rn made dr burnett aware of pt request. per pt medicated according to may. repeat CBC drawn and sent down to lab
[2022-06-30 06:16] VITALS: BP 108/55; PULSE 78; RESP 17; TEMP 36.4; O2SAT 97
--- NOTE | 2022-06-30 06:57 | PC.NURSE ---
pt assisted into wheelchair. vss. pt sister pickling machine operator for pt. pt provided with discharge packet. pt verbalized understanding of discharge plan
== END 2022-06-30 07:00 | disposition home or self-care (01) ==
PROVIDERS: Emergency Medicine; Emergency Provider Emergency Medicine; PCP Family Medicine
DX: R31.9 Hematuria, unspecified (principal)
CPT/HCPCS: 36415; 80048; 81001; 81003; 85025; 87086; 99283; 99284

== ENCOUNTER 2022-07-10 | Outpatient (REF) | payer MEDICARE, MEDICAID, SELFPAY ==
[2022-07-11 13:10] LABS: Amphetamine Screen Urine Not Detected (Not Detect); Barbiturates, Urine Not Detected (Not Detect); Benzodiazepines Screen Urine Not Detected (Not Detect); Cannabinoid Screen Urine Not Detected (Not Detect); Cocaine Screen Urine Not Detected (Not Detect); Fentanyl, urine Not Detected (Not Detect); Opiate Screen Urine POSITIVE (Not Detect); Phencyclidine Screen Urine Not Detected (Not Detect)
== END 2022-07-10 00:01 | disposition home or self-care (01) ==
LOC: HO.LNP
PROVIDERS: Visit Provider Family Medicine
DX: F41.3 Other mixed anxiety disorders (principal); C53.9 Malignant neoplasm of cervix uteri, unspecified
CPT/HCPCS: 80307

== ENCOUNTER 2022-07-16 09:03 | Outpatient (REF) | payer MEDICARE, MEDICAID, SELFPAY ==
--- NOTE | ~2022-07-16 | MR_ITS ---
EXAMINATION: MR PELVIS WITHOUT AND WITH CONTRAST CLINICAL INFORMATION: Metastatic cervical cancer with hematuria and vaginal discharge. Evaluate for fistula. COMPARISON: CT of the abdomen and pelvis, most recent May 2022 and PET/CT scan March 2022. TECHNIQUE: Sagittal, axial and coronal sequences through the pelvis with and without IV contrast. FINDINGS: Exam is limited. The bladder is not optimally distended. There is diffuse bladder wall thickening and enhancement. There is some stranding of the perivesicular fat. Uterus appears atrophic. There are low-signal nonenhancing lesions in the uterus suggestive of small fibroids. There is central bright T2 signal seen in the cervix questionable for fluid in the endocervical canal. There is maybe some surrounding enhancement. There is loss of normal fat plane between the posterior wall of the bladder in the cervix and uterus. Definite cervical or vaginal mass is not appreciated. Definite fistula is not appreciated. No adnexal mass. There is a small amount of fluid in the pelvis. There are prominent left inguinal lymph nodes that demonstrate enhancement. This demonstrated increased uptake on PET/CT is suggestive of metastatic disease. No other adenopathy. Visualized bowel is unremarkable. Vascular structures are unremarkable. No hernia. No abnormal bone marrow signal. Scoliosis and degenerative changes of the spine. MR/MR pelvis wo/w con IMPRESSION: Limited exam as the bladder is not full. Diffuse bladder wall thickening and enhancement and stranding of the perivesicular fat. Definite cervical or vaginal mass or fistula is not appreciated. Small amount of fluid in the pelvis. Prominent left inguinal lymph nodes that demonstrate enhancement suggestive of metastatic disease. Follow-up CT cystoscopy of the pelvis or urologic cystoscopy should be considered.
== END 2022-07-16 09:04 | disposition home or self-care (01) ==
LOC: HO.MRI 09:03
PROVIDERS: PCP Family Medicine; Visit Provider Internal Medicine
DX: C53.9 Malignant neoplasm of cervix uteri, unspecified (principal)
CPT/HCPCS: 72197; A9585

== ENCOUNTER → 2022-07-20 12:11 | Outpatient (BNVA) | payer MEDICARE, MEDICAID, SELFPAY | PROVIDERS: PCP Family Medicine; Visit Provider Nurse Practitioner Family | DX: M17.0 Bilateral primary osteoarthritis of knee (principal); M05.9 Rheumatoid arthritis with rheumatoid factor, unspecified; M85.80 Other specified disorders of bone density and structure, unspecified site | CPT/HCPCS: 99212 ==

== ENCOUNTER 2022-07-25 16:10 | Outpatient (REF) | payer MEDICARE, MEDICAID, SELFPAY ==
[2022-07-26 11:58] LABS: Amphetamine Screen Urine Not Detected (Not Detect); Barbiturates, Urine Not Detected (Not Detect); Benzodiazepines Screen Urine Not Detected (Not Detect); Cannabinoid Screen Urine Not Detected (Not Detect); Cocaine Screen Urine Not Detected (Not Detect); Fentanyl, urine Not Detected (Not Detect); Opiate Screen Urine POSITIVE (Not Detect); Phencyclidine Screen Urine Not Detected (Not Detect)
== END 2022-07-25 16:11 | disposition home or self-care (01) ==
LOC: HO.LAB 16:10
PROVIDERS: Visit Provider Nurse Practitioner Family
DX: F41.8 Other specified anxiety disorders (principal); Z79.899 Other long term (current) drug therapy
CPT/HCPCS: 80307

== ENCOUNTER 2022-08-01 10:15 | Outpatient (REF) | payer MEDICARE, MEDICAID, SELFPAY ==
[2022-08-01 11:21] LABS: MANUAL DIFF FLAG NO
[2022-08-01 11:29] LABS: Basophils Percent Auto 0.5 % (0-2); Eosinophils Absolute Auto 0.2 X10*3/uL (0.0-0.4); Hematocrit 34.4 % (37.0-47.0); Imm Gran Abs Auto 0.01 X10*3/uL (0.00-0.03); Imm Gran Pct Auto 0.1 % (0.0-0.4); Lymphocytes Absolute Auto 0.6 X10*3/uL (1.2-4.9); Lymphocytes Percent Auto 8.2 % (20-40); Mean Corpuscular Hemoglobin 25.2 pg (27.0-33.0); Mean Corpuscular Volume 78.7 fL (80.0-98.0); Mean Platelet Volume 9.5 fL (9.4-12.3); Monocytes Absolute Auto 0.7 X10*3/uL (0.1-1.2); Monocytes Percent Auto 8.5 % (2-11); Neutrophils Absolute Auto 6.2 x10*3/uL (2.0-8.3); Neutrophils Percent Auto 80.7 % (45-73); Platelet Count 477 X10*3/uL (160-400); Red Blood Count 4.37 X10*6/uL (4.20-5.50); Red Cell Distribution Width 15.6 % (11.0-16.0); White Blood Count 7.6 X10*3/uL (4.8-10.8)
[2022-08-01 12:43] LABS: Anion Gap 17 (12-20); Blood Urea Nitrogen 16 mg/dL (9-16); Calcium 9.1 mg/dL (8.4-10.2); Carbon Dioxide 24 mmol/L (22-29); Chloride 99 mmol/L (96-108); Estimated Glomerular Filt Rate > 60; Glucose Random 110 mg/dL (60-115); Potassium 5.1 mmol/L (3.3-5.1); Sodium 135 mmol/L (135-145)
[2022-08-01 14:28] LABS: Appearance Urine Cloudy; Color Urine Dark Yellow; Glucose Urine UA Negative (Negative); Leukocyte Esterase Urine Trace (Negative); Nitrite Urine Negative (Negative); PH 5.5 (5.0-9.0); Specific Gravity - Urine 1.025 (1.005-1.025); UMIC TRIGGER UA YES; Urine Blood Large (3+) (Negative); Urine Ketones Trace mg/dL (Negative); Urine Protein 100 (2+) mg/dL (Neg-Trace)
[2022-08-01 14:42] LABS: Amphetamine Screen Urine Not Detected (Not Detect); Barbiturates, Urine Not Detected (Not Detect); Benzodiazepines Screen Urine Not Detected (Not Detect); Cannabinoid Screen Urine Not Detected (Not Detect); Cocaine Screen Urine Not Detected (Not Detect); Fentanyl, urine Not Detected (Not Detect); Opiate Screen Urine POSITIVE (Not Detect); Phencyclidine Screen Urine Not Detected (Not Detect)
[2022-08-01 14:50] LABS: Bacteria Urine None Seen (None Seen); Calcium Oxalate Crystals Urine Present; Hyaline Casts Urine 0-2 /LPF (0-2); RBC Urine >20 /HPF (0-2); Squamous Epithelial Cell Urine 0-2 /HPF (0-2); WBC Urine 0-5 /HPF (0-5)
== END 2022-08-01 10:16 | disposition home or self-care (01) ==
LOC: HO.WFDLDS 10:15
PROVIDERS: Visit Provider Family Medicine
DX: Z00.00 Encounter for general adult medical examination without abnormal findings (principal); R32 Unspecified urinary incontinence; F11.20 Opioid dependence, uncomplicated
CPT/HCPCS: 80048; 80307; 81001; 81003; 85025; 87086

== ENCOUNTER → 2022-08-15 08:36 | Outpatient (BNVA) | payer MEDICARE, MEDICAID, SELFPAY | PROVIDERS: PCP Family Medicine; Visit Provider Internal Medicine Rheumatology | DX: M05.9 Rheumatoid arthritis with rheumatoid factor, unspecified (principal); M17.0 Bilateral primary osteoarthritis of knee; C53.9 Malignant neoplasm of cervix uteri, unspecified; C79.71 Secondary malignant neoplasm of right adrenal gland | CPT/HCPCS: 99212 ==

== ENCOUNTER 2022-08-16 08:34 | Outpatient (AMB) | payer MEDICARE, MEDICAID, SELFPAY ==
--- NOTE | 2022-08-16 08:38 | MHC.OFFVIS ---
Intake Intake Visit Reasons: adrenal mass/hematuria Intake Note: Pt presents to the office today for adrenal mass and hematuria. Urinalysis done. Allergies buprenorphine [Belbuca] Allergy (Intermediate, Verified 10/21/22 12:23) Anaphylaxis HPI HPI Comments History of Present Illness Details Evelyn is a 67-year-old female who presents to the office for cystoscopy procedure. The patient was last seen on 02/28/22 by [employer]BER Naomy Preciado. 08/16/22-- The patient presents with metastatic cervical cancer, poorly differentiated squamous cell carcinoma diagnosed on 02/2022 she had 6.2 x 5.3 cm mass in the right adrenal gland extending into retrocaval space and retroperitoneum that was noted on CTAP of 02/21/22. The patient is being followed by oncology and did not complete course of chemotherapy. The patient had vaginal bleeding on 05/30/22 and CTAP of -- noted thickening of bladder wall. She states that she saw her oncologist about a week ago and she is going to start hospice care as the cancer has progressed. I have discussed with her that the imaging has noted some thickening of the bladder wall and based on the fact that she is going to start hospice I do not think so that cystoscopy would change the course of management. She states that she had frequent UTI episodes in the past which gave her symptoms of painful urination and urgency. On evaluation today there is no sign of urinary infection. She was instructed to call the office if there are symptoms of UTI and we will treat her with antibiotics. In review of her charts I reviewed MRI pelvis from 07/16/22 and CTAP from 05/30/22. Evaluation today-- Blood: ?200 Kevan/uL, leukocytes: negative. MRI pelvis without contrast--07/16/22-- findings of bladder wall thickening. Plan: Discussed to call the office if there are symptoms of UTI episode. Follow-up PRN. PFS Medical History Back pain Cervical cancer Opiate abuse, episodic Osteoarthritis of both knees Osteopenia determined by x-ray Primary osteoarthritis of knees, bilateral Seropositive rheumatoid arthritis Surgical History History of appendectomy History of cholecystectomy History of D&C History of tonsillectomy Family History Father Acute CVA (cerebrovascular accident) Mother Hypertension Hypercholesterolemia Brother Liver transplant status Family history of thyroid problem Social History Household Members: Children Housing: House Are you a primary home care scheduler to a significant other at home: Yes (mom) Do you presently have visiting nurse or other home services: No Alcohol intake: never Patient Tobacco Use Status: Former Tobacco user Quit Date: 2016 Tobacco use type: Cigarette e-Cigarette/Vaping Use: Never Used Second Hand Smoke Exposure: No Advance Directives: Yes Advance Directives on File: No service: No 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 Cognitive needs: No Hearing needs: No Vision needs: No Review of Systems Const All systems reviewed & are unremarkable except as noted in HPI and below Reports no additional complaints Eyes Reports no additional complaints ENT Reports no additional complaints Card Denies dyspnea Resp Denies cough and Denies dyspnea GI Reports no additional complaints Reports no additional complaints Musc Details: complains of joint pain Reports no additional complaints Skin/Breast Denies rash Neuro Reports no additional complaints Psych Reports no additional complaints Endo Reports no additional complaints Andrew/Lymph Reports no additional complaints Aller/Immun Reports no additional complaints Physical Exam Const General: cooperative and no acute distress Orientation/consciousness: patient oriented x3 HEENT Head: Yes normal to inspection, Yes normocephalic and Yes atraumatic Eyes Conjunctivae: conjunctivae normal Neck Neck: Yes normal visual inspection and Yes trachea midline Chest Chest palpation & inspection: normal inspection of the chest Resp Effort & Inspection: normal respiratory effort Cardio Rate: regular rate GI Inspection: Yes normal to inspection Neuro General: patient oriented x3 Psych Appearance: grossly normal Results AMB Urinalysis, Automated UA Leukoctes 0 Carmen/uL Last Edit by Estephania Yi MA on 08/16/22 08:45 UA Nitrite Negative Last Edit by Estephania Yi MA on 08/16/22 08:45 UA Urobilinogen 0.2 mg/dL Last Edit by Estephania Yi MA on 08/16/22 08:45 UA Protein 15 mg/dL Last Edit by Estephania Yi MA on 08/16/22 08:45 UA pH 8.0 Last Edit by Estephania Yi MA on 08/16/22 08:45 UA Blood 200 Kevan/uL Last Edit by Estephania Yi MA on 08/16/22 08:45 UA Specific [place] 1.010 Last Edit by Estephania Yi MA on 08/16/22 08:45 UA Ketone Negative Last Edit by Estephania Yi MA on 08/16/22 08:45 UA Bilirubin 0 mg/dL Last Edit by Estephania Yi MA on 08/16/22 08:45 UA Glucose 0 mg/dL Last Edit by Estephania Yi MA on 08/16/22 08:45 Results Reviewed Results Reviewed: Laboratory Last Values Urine pH (Auto) 8.0 08/16/22 08:40 Specific [place] (Auto) 1.010 08/16/22 08:40 Urine Protein (Auto) 15 mg/dL 08/16/22 08:40 Glucose (UA)(Auto) 0 mg/dL 08/16/22 08:40 Urine Ketones (Auto) Negative 08/16/22 08:40 Urine Blood (Auto) 200 Kevan/uL 08/16/22 08:40 Urine Nitrite (Auto) Negative 08/16/22 08:40 Urine Bilirubin (Auto) 0 mg/dL 08/16/22 08:40 Urine Urobilinogen (Auto) 0.2 mg/dL 08/16/22 08:40 Leukocyte Esterase (Auto) 0 Cramen/uL 08/16/22 08:40 Date of Service: 07/16/22 EXAMINATION: MR PELVIS WITHOUT AND WITH CONTRAST CLINICAL INFORMATION: Metastatic cervical cancer with hematuria and vaginal discharge. Evaluate for fistula. COMPARISON: CT of the abdomen and pelvis, most recent May 2022 and PET/CT scan March 2022. TECHNIQUE: Sagittal, axial and coronal sequences through the pelvis with and without IV contrast. FINDINGS: Exam is limited. The bladder is not optimally distended. There is diffuse bladder wall thickening and enhancement. There is some stranding of the perivesicular fat. Uterus appears atrophic. There are low-signal nonenhancing lesions in the uterus suggestive of small fibroids. There is central bright T2 signal seen in the cervix questionable for fluid in the endocervical canal. There is maybe some surrounding enhancement. There is loss of normal fat plane between the posterior wall of the bladder in the cervix and uterus. Definite cervical or vaginal mass is not appreciated. Definite fistula is not appreciated. No adnexal mass. There is a small amount of fluid in the pelvis. There are prominent left inguinal lymph nodes that demonstrate enhancement. This demonstrated increased uptake on PET/CT is suggestive of metastatic disease. No other adenopathy. Visualized bowel is unremarkable. Vascular structures are unremarkable. No hernia. No abnormal bone marrow signal. Scoliosis and degenerative changes of the spine. IMPRESSION: Limited exam as the bladder is not full. Diffuse bladder wall thickening and enhancement and stranding of the perivesicular fat. Definite cervical or vaginal mass or fistula is not appreciated. Small amount of fluid in the pelvis. Prominent left inguinal lymph nodes that demonstrate enhancement suggestive of metastatic disease. Follow-up CT cystoscopy of the pelvis or urologic cystoscopy should be considered. Date of Service: 05/30/22 EXAMINATION: CT ABDOMEN AND PELVIS WITH CONTRAST? CLINICAL INFORMATION: Heavy vaginal bleeding.? COMPARISON: 02/21/2022 ? TECHNIQUE: Multidetector volumetric images were obtained from the superior aspect of the liver through the pubic symphysis following administration 85 mL of Omnipaque 350 intravenous contrast. Sagittal and coronal reformatted images were obtained on the technologist's workstation.? Oral contrast: No This CT examination was performed using dose optimization techniques as appropriate, variously including the following: *Automated exposure control *Adjustment of mA and/or kV according to patient size (this includes techniques or standardized protocols for targeted exams where dose is matched to indication/reason for exam; i.e. extremities or head) *Use of iterative reconstruction technique DLP: 380 mGy-cm FINDINGS: LUNG BASES: The visualized lung bases are unremarkable.? LIVER, GALLBLADDER, AND BILIARY TREE: The liver is normal in size, shape, and attenuation. No focal hepatic lesion. Cholecystectomy. Diffuse intrahepatic and extrahepatic biliary ductal dilatation. The common bile duct measures 1.2 cm. This is unchanged in appearance from prior imaging. No ductal filling defect. PANCREAS: Unremarkable.? SPLEEN: Unremarkable.? ADRENAL GLANDS: Normal left adrenal gland. The right adrenal gland mass has decreased in size, with calcification now present. This area measures 3.2 x 2.6 cm. KIDNEYS AND URETERS: The kidneys are normal in size, shape, and attenuation. There is still no fat plane between the right adrenal mass and the right kidney. No hydronephrosis, hydroureter, or calculi seen. No perinephric stranding. ? BLADDER: No focal wall thickening of the posterior wall of the bladder measuring 1.1 cm..? GASTROINTESTINAL TRACT: The stomach is unremarkable. Normal caliber small bowel. No obstruction. No colonic wall thickening or inflammatory change. No free air or free fluid.? ABDOMINAL WALL: No significant hernia is appreciated.? LYMPH NODES: Normal. VASCULAR: Normal caliber aorta with moderate atherosclerotic calcification. PELVIC VISCERA: Similar appearance to prior. Atrophic or partially removed uterus with coarse calcifications. Decompressed vagina. The anterior wall of the vagina abuts the posterior wall of the bladder where there is some mild wall thickening. This is of uncertain significance. No adnexal mass. OSSEOUS STRUCTURES: No acute or suspicious osseous abnormality. Degenerative changes of the lumbar spine.? IMPRESSION: 1.? Decreased size of the right adrenal gland mass with calcification now present. 2.? Decompressed vagina. The anterior wall of the vagina abuts the posterior wall of the bladder where there is some mild wall thickening. This is of uncertain significance. Cannot exclude a bladder mass. 3.? Similar appearance of the uterus which is either atrophic or partially absent with coarse calcifications. 4.? Similar appearance of diffuse biliary ductal dilatation. ? Assessment & Plan Assessment & Plan (1) Frequent UTI: Code(s): N39.0 - Urinary tract infection, site not specified (2) Adrenal mass: Code(s): E27.8 - Other specified disorders of adrenal gland (3) Cervical cancer: Code(s): C53.9 - Malignant neoplasm of cervix uteri, unspecified Plan Discussed to call the office if there are symptoms of UTI episode. Follow-up PRN. Orders: Orders AMB Urinalysis Automated 08/16/22 Z13.9 - Encounter for screening, unspecified Medications: Discontinued oxycodone Partial Fill upon patient request. 5 mg PO Q6H PRN 60 tabs 0RF Pain morphine ER Partial Fill upon patient request. 30 mg PO Q12H 60 tabs 0RF oxycodone Partial Fill upon patient request. 5 mg PO Q6H PRN 60 tabs 0RF Pain morphine ER Partial Fill upon patient request. 30 mg PO Q12H 60 tabs 0RF oxycodone Partial Fill upon patient request. 5 mg PO Q6H PRN 60 tabs 0RF Pain morphine ER Partial Fill upon patient request. 30 mg PO Q12H 60 tabs 0RF oxycodone Partial Fill upon patient request. 5 mg PO Q6H PRN 60 tabs 0RF Pain morphine ER Partial Fill upon patient request. 30 mg PO Q12H 60 tabs 0RF oxycodone Partial Fill upon patient request. 5 mg PO Q6H PRN 60 tabs 0RF Pain oxycodone Partial Fill upon patient request. 5 mg PO Q6H PRN 60 tabs 0RF Pain oxycodone Partial Fill upon patient request. 5 mg PO Q6H PRN 60 tabs 0RF Pain oxycodone Partial Fill upon patient request. 5 mg PO Q6H PRN 60 tabs 0RF Pain morphine ER Partial Fill upon patient request. 30 mg PO Q12H 60 tabs 0RF Patient Instructions: The patient had an opportunity to ask questions regarding treatment plan. All questions were answered. Imaging, Laboratory studies and physical exam results were discussed and reviewed in detail. No major barriers to understanding were identified. The patient expressed understanding and agreement with the above treatment plan. The patient is aware they should contact our office by phone for worsening of their current condition or the appearance of new symptoms. Compliance is encouraged with any medications and followup testing that is ordered. It is a privilege to be allowed the opportunity to participate in the urologic care of your patient. If you have any questions or concerns regarding treatment for the above conditions please do not hesitate to contact me. The office telephone contact is [phone]. This note is constructed in part using voice recognition software. While every effort has been made to ensure accuracy linux system engineer errors may have been included. Yours sincerely, Luiz Golden MD Coding Level of Care Code Est Pt Level 4 (51116) Diagnoses Frequent UTI N39.0 Adrenal mass E27.8 Cervical cancer C53.9 Time Spent (min) 29
== END 2022-08-16 09:31 | disposition home or self-care (01) ==
LOC: HO.HUSH 08:34
PROVIDERS: PCP Family Medicine; Visit Provider Urology
DX: N39.0 Urinary tract infection, site not specified (principal); E27.8 Other specified disorders of adrenal gland; C53.9 Malignant neoplasm of cervix uteri, unspecified
CPT/HCPCS: 99214

== ENCOUNTER → 2022-08-16 08:34 | Outpatient (BNVA) | payer MEDICARE, MEDICAID, SELFPAY | PROVIDERS: PCP Family Medicine; Visit Provider Urology | DX: N39.0 Urinary tract infection, site not specified (principal); E27.8 Other specified disorders of adrenal gland; C53.9 Malignant neoplasm of cervix uteri, unspecified | CPT/HCPCS: 99212 ==

== ENCOUNTER 2022-08-17 13:42 | Outpatient (REF) | payer MEDICARE, MEDICAID, SELFPAY ==
[2022-08-17 18:27] LABS: Appearance Urine Cloudy; Color Urine Yellow; Glucose Urine UA Negative (Negative); Leukocyte Esterase Urine Trace (Negative); Nitrite Urine Negative (Negative); PH 6.5 (5.0-9.0); UMIC TRIGGER UA YES; Urine Blood Large (3+) (Negative); Urine Ketones Negative (Negative); Urine Protein Trace mg/dL (Neg-Trace)
[2022-08-17 18:38] LABS: Bacteria Urine None Seen (None Seen); Hyaline Casts Urine 0-2 /LPF (0-2); RBC Urine >20 /HPF (0-2); Squamous Epithelial Cell Urine 0-2 /HPF (0-2); WBC Urine 0-5 /HPF (0-5)
[2022-08-17 18:42] LABS: Amphetamine Screen Urine Not Detected (Not Detect); Barbiturates, Urine Not Detected (Not Detect); Benzodiazepines Screen Urine Not Detected (Not Detect); Cannabinoid Screen Urine Not Detected (Not Detect); Cocaine Screen Urine Not Detected (Not Detect); Fentanyl, urine Not Detected (Not Detect); Opiate Screen Urine POSITIVE (Not Detect); Phencyclidine Screen Urine Not Detected (Not Detect)
== END 2022-08-17 13:43 | disposition home or self-care (01) ==
LOC: HO.LAB 13:42
PROVIDERS: Visit Provider Family Medicine
DX: Z00.00 Encounter for general adult medical examination without abnormal findings (principal); F41.8 Other specified anxiety disorders
CPT/HCPCS: 80307; 81001

== ENCOUNTER 2022-08-31 13:20 | Outpatient (REF) | payer MEDICARE, MEDICAID, SELFPAY ==
[2022-08-31 15:12] LABS: Amphetamine Screen Urine Not Detected (Not Detect); Barbiturates, Urine Not Detected (Not Detect); Benzodiazepines Screen Urine Not Detected (Not Detect); Cannabinoid Screen Urine Not Detected (Not Detect); Cocaine Screen Urine Not Detected (Not Detect); Fentanyl, urine Not Detected (Not Detect); Opiate Screen Urine POSITIVE (Not Detect); Phencyclidine Screen Urine Not Detected (Not Detect)
[2022-09-15 09:34] LABS: Alphahydroxytriazolam, GCMS Ur NEGATIVE; Alprazolam, GCMS Urine NEGATIVE; Lorazepam GCMS Urine 853; Nordiazepam, GCMS Urine NEGATIVE; Oxazepam, GCMS Urine NEGATIVE; Temazepam, GCMS Urine NEGATIVE
[2022-09-15 09:35] LABS: Alphahydroxymidazolam,GCMS Ur NEGATIVE
== END 2022-08-31 13:21 | disposition home or self-care (01) ==
LOC: HO.LNP 13:20
PROVIDERS: Visit Provider Family Medicine
DX: F41.8 Other specified anxiety disorders (principal)
CPT/HCPCS: 80307; 80346

== ENCOUNTER 2022-09-05 22:20 | Emergency (ER) | payer MEDICARE, MEDICAID, SELFPAY ==
[2022-09-05 22:35] VITALS: BP 149/77; BP 152/76; PULSE 72; RESP 18; TEMP 36.6; O2SAT 97
[2022-09-06] MEDS: ondansetron HCL 4 MG/2 ML VIAL IVPUSH (00:27)
[2022-09-06 00:33] LABS: MANUAL DIFF FLAG NO
[2022-09-06 00:34] LABS: Basophils Percent Auto 0.3 % (0-2); Eosinophils Percent Auto 0.1 % (0-4); Hematocrit 34.8 % (37.0-47.0); Hemoglobin 10.9 g/dl (12.0-16.0); Imm Gran Abs Auto 0.04 X10*3/uL (0.00-0.03); Imm Gran Pct Auto 0.4 % (0.0-0.4); Lymphocytes Absolute Auto 0.9 X10*3/uL (1.2-4.9); Lymphocytes Percent Auto 9.4 % (20-40); Mean Corpuscular HGB Conc 31.3 g/dl (31.0-35.0); Mean Corpuscular Hemoglobin 25.3 pg (27.0-33.0); Mean Corpuscular Volume 80.7 fL (80.0-98.0); Mean Platelet Volume 9.2 fL (9.4-12.3); Monocytes Absolute Auto 0.6 X10*3/uL (0.1-1.2); Monocytes Percent Auto 5.8 % (2-11); Neutrophils Absolute Auto 8.2 x10*3/uL (2.0-8.3); Platelet Count 561 X10*3/uL (160-400); Red Blood Count 4.31 X10*6/uL (4.20-5.50); Red Cell Distribution Width 15.6 % (11.0-16.0); White Blood Count 9.8 X10*3/uL (4.8-10.8)
--- NOTE | 2022-09-06 00:34 | ED_ITS ---
HPI - General Adult General Chief complaint: General Medical Stated complaint: nausea and vomiting Time Seen by Provider: 09/05/22 22:58 Source: patient Mode of arrival: EMS History of Present Illness HPI narrative: This is a 67-year-old female who presents with multiple episodes of nausea and vomiting since this morning after taking her medications, she states she thinks it is due to the gabapentin as she was out of her oxycodone. Patient states that she has seen her oncologist in the recommendation at this time is to proceed with hospice and endorses that she has feel the paperwork out but that she was so nauseous and vomiting today she just wanted to have that under control. Related Data Home Medications Medication Instructions Recorded Confirmed omeprazole 20 mg capsule,delayed 20 mg PO DAILY 08/01/22 09/05/22 release Previous Rx's Medication Instructions Recorded cane #1 ea 08/18/21 diclofenac sodium 1 % topical gel 2 g topical QID PRN pain #100 grams 08/18/21 (Arthritis Pain (diclofenac)) mirtazapine 15 mg tablet 15 mg PO DAILY 30 days #30 tabs 03/26/22 diaper,brief,adult,disposable #60 ea 05/20/22 ([employer] Adult Brief) sertraline 50 mg tablet 75 mg PO DAILY 90 days #135 tabs 06/29/22 clotrimazole 1 % vaginal cream 1 appful vaginal BEDTIME 7 days 07/10/22 #45 grams food supplemt, lactose-reduced 1 ea PO DAILY 90 days #21,330 mL 07/12/22 (Ensure oral liquid) ferrous sulfate 325 mg (65 mg 325 mg PO BID #60 tabs 08/09/22 iron) tablet prednisone 5 mg tablet 5 mg PO DAILY #14 tabs 08/10/22 prednisone 5 mg tablet See Rx Instructions .Route 08/15/22 .COMPLEX #63 tabs gabapentin 600 mg tablet 600 mg PO DAILY 30 days #30 tabs 08/17/22 morphine 30 mg tablet,extended 30 mg PO Q12H #60 tabs 08/20/22 release (MS Contin) alendronate 70 mg tablet 70 mg PO QWEEK #12 tabs 08/22/22 ondansetron 8 mg disintegrating 8 mg PO Q8H PRN nausea 08/22/22 tablet meclizine 12.5 mg tablet 12.5 mg PO DAILY PRN dizziness 30 08/31/22 days #14 tabs walker (Ultra-Light Rollator misc) #1 ea 08/31/22 lorazepam 1 mg tablet 2 mg PO BID PRN anxiety 20 days 09/05/22 #40 tabs oxycodone 5 mg tablet 5 mg PO Q6H PRN Pain #60 tabs 09/05/22 ondansetron 4 mg disintegrating 4 mg PO Q8H PRN nausea and 09/06/22 tablet vomiting #14 tabs Allergies Allergy/AdvReac Type Severity Reaction Status Date / Time buprenorphine [Belbuca] Allergy Intermediate nausea Verified 08/31/22 11:17 Review of Systems Review of Systems: Pertinent positives and negatives as stated in HPI [facility] Past Medical History Source: nursing notes reviewed Medical History Back pain Cervical cancer Opiate abuse, episodic Osteoarthritis of both knees Osteopenia determined by x-ray Primary osteoarthritis of knees, bilateral Seropositive rheumatoid arthritis Surgical History History of appendectomy History of cholecystectomy History of D&C History of tonsillectomy Family History Family History Father Acute CVA (cerebrovascular accident) Mother Hypertension Hypercholesterolemia Brother Liver transplant status Family history of thyroid problem Social History Social History Household Members: Children Housing: House Are you a primary healthcare business analyst to a significant other at home: Yes (mom) Do you presently have visiting nurse or other home services: No Alcohol intake: never Patient Tobacco Use Status: Former Tobacco user Quit Date: 2016 Tobacco use type: Cigarette e-Cigarette/Vaping Use: Never Used Second Hand Smoke Exposure: No Advance Directives: No Advance Directives Information Provided: No service: No Current occupational status: employed and 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 Cognitive needs: No Hearing needs: No Vision needs: Yes Physical Exam ED Vital Signs: Vital Signs - 24 hr 09/05/22 22:35 Temperature 97.8 F Pulse Rate 72 Respiratory Rate 18 Blood Pressure 149/77 H Pulse Oximetry 97 Oxygen Delivery Method Room Air BMI result Body Mass Index 20.0 VITAL SIGNS: Reviewed. GENERAL: Chronically ill, cachectic, in no acute distress. HEAD: Normocephalic/atraumatic EYES: PERRLA, EOMI EARS: Ext canals without abnormality NOSE: Nares patent bilateral OROPHARYNX: no oral lesions noted, posterior pharynx clear NECK: Supple, no adenopathy LUNGS: Normal breath sounds. No adventitious sounds or accessory muscle use. SpO2<97> CARDIOVASCULAR: Regular rate and rhythm without noted murmurs ABDOMEN: Soft, non-tender, non-distended with bowel sounds. MUSCULOSKELETAL: No tenderness, deformities, or effusions noted on gross inspection. EXTREMITIES: No cyanosis, clubbing or edema. SKIN: Inspection of the skin reveals no rashes NEUROLOGIC: Alert and oriented x 4. Strength and sensation to light touch were grossly intact x 4. Medications Administered Discontinued Medications Generic Name Dose Route Start Last Admin Trade Name Freq PRN Reason Stop Dose Admin Sodium Chloride 1,000 mls @ 999 mls/hr 09/06/22 00:45 09/06/22 00:58 Ns IV 09/06/22 01:45 999 mls/hr .Q1H1M LUIS M Administration Ondansetron HCl 4 mg 09/06/22 00:02 09/06/22 00:27 Ondansetron Hcl 4 Mg/2 Ml Vial IVPUSH 09/06/22 00:03 4 mg ONCE ONE Administration Medical Decision Making Medical Decision Making MDM Narrative: 67-year-old female self-reported metastatic CA for which she is pursuing hospice intervention at her request although she was offered to be started on chemotherapy and/or immunotherapy. However, she would like to have the nausea and vomiting controlled and be rehydrated. I have reviewed all investigations which appear to be chronically stable. Patient received 1 L of IV fluids as well as Zofran with good results and will p.o. challenge. I reviewed the documentation by Dr. Durbin on 09/05 which clearly describes that it is felt that the adrenal mass is a metastasis of previous cervical primary. Patient filled out a DNR/DNI. Differential Diagnosis Please see the discussion above Lab Data Please see the discussion above 09/06/22 00:23 09/06/22 00:23 Labs: Lab Results 09/06/22 09/06/22 09/06/22 Range/Units 00: 00: 00:23 WBC 9.8 (4.8-10.8) X10*3/uL RBC 4.31 (4.20-5.50) X10*6/uL Hgb 10.9 L (12.0-16.0) g/dl Hct 34.8 L (37.0-47.0) % MCV 80.7 (80.0-98.0) fL MCH 25.3 L (27.0-33.0) pg MCHC 31.3 (31.0-35.0) g/dl RDW 15.6 (11.0-16.0) % Plt Count 561 H (160-400) X10*3/uL MPV 9.2 L (9.4-12.3) fL Immature Gran % (Auto) 0.4 (0.0-0.4) % Neut % (Auto) 84.0 H (45-73) % Lymph % (Auto) 9.4 L (20-40) % [place] % (Auto) 5.8 (2-11) % Eos % (Auto) 0.1 (0-4) % Baso % (Auto) 0.3 (0-2) % Lymph # (Auto) 0.9 L (1.2-4.9) X10*3/uL [place] # (Auto) 0.6 (0.1-1.2) X10*3/uL Eos # (Auto) 0.0 (0.0-0.4) X10*3/uL Baso # (Auto) 0.0 (0.0-0.2) X10*3/uL Abs Immat Gran (auto) 0.04 H (0.00-0.03) X10*3/uL Absolute Neuts (auto) 8.2 (2.0-8.3) x10*3/uL Absolute Nucleated RBC 0.000 (0.0-0.012) X10*3/uL Nucleated RBC % (auto) 0.0 (0.0-0.2) /100WBC Sodium 137 (135-145) mmol/L Potassium 4.1 (3.3-5.1) mmol/L Chloride 97 (96-108) mmol/L Carbon Dioxide 29 (22-29) mmol/L Anion Gap 15 (12-20) BUN 15 (9-16) mg/dL Creatinine 0.69 (0.5-1.4) mg/dL Estim Creat Clear Calc 69.9 Estimated GFR > 60 Random Glucose 113 (60-115) mg/dL Calcium 10.1 D (8.4-10.2) mg/dL Total Bilirubin 0.3 (0.0-1.0) mg/dL AST 129 H (5-31) U/L ALT 140 H (0-31) U/L Alkaline Phosphatase 630 H (39-117) U/L Total Protein 7.9 (6.5-8.0) g/dL Albumin 3.5 (3.5-5.0) g/dL Urine Color Dark Yellow Urine Appearance Clear Urine pH 7.0 (5.0-9.0) Ur Specific [place] >= 1.030 H (1.005-1.025) Urine Protein 30 (1+) H (Neg-Trace) mg/dL Urine Glucose (UA) Negative (Negative) mg/dL Urine Ketones Trace (Negative) mg/dL Urine Blood Negative (Negative) Urine Nitrite Negative (Negative) Ur Leukocyte Esterase Trace H (Negative) Urine RBC 11-20 H (0-2) /HPF Urine WBC 6-10 H (0-5) /HPF Ur Squamous Epith Cells 3-5 (0-2) /HPF Urine Bacteria None Seen (None Seen) Hyaline Casts 0-2 (0-2) /LPF External Record Review External record reviewed: Office record and Prior outpatient labs Discharge Plan Discharge Clinical Impression: Nausea & vomiting Patient Disposition: Home, Self-Care Instructions: Acute Nausea and Vomiting (ED) Additional Instructions: 1. Resume all home medications as prescribed. 2. Follow-up with your primary care provider and be sure to call the hospice representatives so that there is no delay in setting up services. Return to the ER for any worsening symptoms. Prescriptions: New ondansetron 4 mg tablet,disintegrating 4 mg PO Q8H PRN (Reason: nausea and vomiting) Qty: 14 0RF No Action mirtazapine 15 mg tablet 15 mg PO DAILY 30 Days Qty: 30 0RF (DME) [employer] Adult Brief Misc See Rx Instructions .Route Qty: 60 2RF Rx Instructions: 2 daily As directed, 30 days Ensure Liquid 1 ea PO DAILY 90 Days Qty: 61487 3RF Rx Instructions: Butter Pecan. prednisone 5 mg tablet 5 mg PO DAILY Qty: 14 1RF alendronate 70 mg tablet 70 mg PO QWEEK Qty: 12 1RF ondansetron 8 mg tablet,disintegrating 8 mg PO Q8H PRN (Reason: nausea) 3RF meclizine 12.5 mg tablet 12.5 mg PO DAILY PRN (Reason: dizziness) 30 Days Qty: 14 0RF lorazepam 1 mg tablet 2 mg PO BID PRN (Reason: anxiety) 20 Days Qty: 40 0RF Rx Instructions: [employer] verified. Partial refill upon request. ferrous sulfate 325 mg (65 mg iron) Tablet 325 mg PO BID Qty: 60 3RF morphine [MS Contin] 30 mg Tablet Extended Release 30 mg PO Q12H Qty: 60 0RF Rx Instructions: Partial Fill upon patient request. oxycodone 5 mg Tablet 5 mg PO Q6H PRN (Reason: Pain) Qty: 60 0RF Rx Instructions: Partial Fill upon patient request. diclofenac sodium [Arthritis Pain (diclofenac)] 1 % gel 2 g topical QID PRN (Reason: pain) Qty: 100 0RF Rx Instructions: apply to single elbow, wrist or hand; for hand includes palm/fingers/back of hand (DME) cane Device See Rx Instructions .Route Qty: 1 0RF Rx Instructions: As directed omeprazole 20 mg capsule,delayed release(DR/EC) 20 mg PO DAILY gabapentin 600 mg tablet 600 mg PO DAILY 30 Days Qty: 30 1RF (DME) Ultra-Light Rollator Misc See Rx Instructions .Route Qty: 1 0RF Rx Instructions: Rollator walker with seat and brakes. Daily as directed. 999 days clotrimazole 1 % cream 1 appful vaginal BEDTIME 7 Days Qty: 45 1RF sertraline 50 mg tablet 75 mg PO DAILY 90 Days Qty: 135 3RF prednisone 5 mg tablet See Rx Instructions .ROUTE .COMPLEX Qty: 63 2RF Rx Instructions: 3 tab once a day for 3 days then 1 tab twice a day thereafter Referrals: Dean Villalba MD [Primary Care Provider] -
[2022-09-06 00:35] LABS: Appearance Urine Clear; Color Urine Dark Yellow; Glucose Urine UA Negative (Negative); Leukocyte Esterase Urine Trace (Negative); Nitrite Urine Negative (Negative); Specific Gravity - Urine >= 1.030 (1.005-1.025); UMIC TRIGGER UACC YES; Urine Blood Negative (Negative); Urine Ketones Trace mg/dL (Negative); Urine Protein 30 (1+) mg/dL (Neg-Trace)
[2022-09-06 00:43] LABS: Bacteria Urine None Seen (None Seen); Hyaline Casts Urine 0-2 /LPF (0-2); UACC Culture Trigger YES
[2022-09-06 00:48] LABS: Alanine Aminotransferase 140 U/L (0-31); Albumin Level 3.5 g/dL (3.5-5.0); Alkaline Phosphatase 630 U/L (39-117); Anion Gap 15 (12-20); Aspartate Amino Transferase 129 U/L (5-31); Bilirubin Total 0.3 mg/dL (0.0-1.0); Blood Urea Nitrogen 15 mg/dL (9-16); Calcium 10.1 mg/dL (8.4-10.2); Carbon Dioxide 29 mmol/L (22-29); Chloride 97 mmol/L (96-108); Creatinine Clr Calc Pharmacy 69.9; Estimated Glomerular Filt Rate > 60; Glucose Random 113 mg/dL (60-115); Potassium 4.1 mmol/L (3.3-5.1); Sodium 137 mmol/L (135-145); Total Protein 7.9 g/dL (6.5-8.0)
[2022-09-06] MEDS: 0.9 % Sodium Chloride 1,000 ML 999 ML IV (00:58)
[2022-09-06] MEDS: Morphine Sulfate ER 30 MG TABLET.ER PO (02:18)
[2022-09-06] MEDS: oxyCODONE HCl Immed Release 5 MG TABLET PO (05:21)
== END 2022-09-06 06:03 | disposition home or self-care (01) ==
PROVIDERS: Student in an Organized Health Care Education/Training Program; Emergency Provider Emergency Medicine Emergency Medical Services; PCP Family Medicine
DX: R11.2 Nausea with vomiting, unspecified (principal); Z79.899 Other long term (current) drug therapy; Z87.891 Personal history of nicotine dependence
CPT/HCPCS: 36415; 80053; 81001; 85025; 87086; 96361; 96374; 99284; J2405

== ENCOUNTER 2022-09-18 13:30 | Outpatient (AMB) | payer MEDICARE, MEDICAID, SELFPAY ==
[2022-09-18 13:32] VITALS: BP 132/80; PULSE 79; O2SAT 98; BMI 19.7
--- NOTE | 2022-09-18 13:32 | MHC.PC.OV ---
Vital Signs 09/18/22 13:32 Height 5 ft 5 in Weight 118 lb 2 oz BMI 19.7 BP 132/80 Blood Pressure Location Lt brachial Pulse 79 Pulse Source Pulse Oximeter Pulse Oximetry (%) 98 Oxygen Delivery Method Room Air Intake Visit Reasons: f/u anxiety/depression Intake Note: Patient is here with anxiety and depression. Allergies buprenorphine [Belbuca] Allergy (Intermediate, Verified 09/18/22 13:37) nausea Tobacco use date assessed: 09/18/22 Fall risk assessment: 2 + Falls in past year Last assessed Fall Risk: 09/18/22 Dental Screening Dental Screen Date: 09/18/22 Did you have a dental visit in the last 12 months?: No Did you have a dental problem in the last 6 months where you did not have access to dental care?: No Was dental information given to patient?: No HPI f/u anxiety/depression HPI Details 67 y/o female presents to f/u anxiety/depression. She reports she has been using lorazepam 2mg b.i.d. GCMS testing for lorazepam positive. [facility] Medical History Back pain Cervical cancer Opiate abuse, episodic Osteoarthritis of both knees Osteopenia determined by x-ray Primary osteoarthritis of knees, bilateral Seropositive rheumatoid arthritis Surgical History History of appendectomy History of cholecystectomy History of D&C History of tonsillectomy Family History Father Acute CVA (cerebrovascular accident) Mother Hypertension Hypercholesterolemia Brother Liver transplant status Family history of thyroid problem Social History Household Members: Children Housing: House Are you a primary career services director to a significant other at home: Yes (mom) Do you presently have visiting nurse or other home services: No Alcohol intake: never Patient Tobacco Use Status: Former Tobacco user Quit Date: 2016 Tobacco use type: Cigarette e-Cigarette/Vaping Use: Never Used Second Hand Smoke Exposure: No service: No Current occupational status: employed and 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 Cognitive needs: No Hearing needs: No Vision needs: Yes Questionnaire PHQ-9 Over the last 2 weeks, how often have you been bothered by any of the following problems? 1. Little interest or pleasure in doing things: not at all 2. Feeling down, depressed, or hopeless: not at all 3. Trouble falling or staying asleep, or sleeping too much: nearly every day 4. Feeling tired or having little energy: several days 5. Poor appetite or overeating: nearly every day 6. Feeling bad about yourself - or that you are a failure or have let yourself or your family down: not at all 7. Trouble concentrating on things, such as reading the newspaper or watching television: nearly every day 8. Moving or speaking so slowly that other people could have noticed. Or the opposite - being so fidgety or restless that you have been moving around a lot more than usual: not at all 9. Thoughts that you would be better off or of hurting yourself in some way: not at all Total score: 10 Source: Developed by Drs. Kevin Kenney, Joanie Swan, Marino Medina and colleagues, with an educational july from [employer]. Thrive Questionnaire Date Thrive assessed: 08/18/21 STEPHIE-7 AMB Questionnaire STEPHIE-7 Date STEPHIE - 7 assessed: 08/01/22 Feeling nervous, anxious, or on edge: 3 = Nearly every day Not being able to stop or control worryin = Nearly every day Worrying too much about different things: 3 = Nearly every day Trouble relaxin = Nearly every day Being so restless that it is hard to sit still: 3 = Nearly every day Becoming easily annoyed or irritable: 3 = Nearly every day Feeling afraid as if something awful might happen: 3 = Nearly every day Total STEPHIE-7 score (0-4 normal; 5-9 mild; 10-14 moderate; 15-21 severe): 21 Source: Developed by Drs. Kevin Kenney, Joanie Swan, Marino Medina and colleagues, with an educational july from [employer]. Review of Systems Const Denies chills, Denies fatigue, Denies fever(s), Denies headache(s) and Denies weakness ENT Denies dizziness and Denies headache(s) Card Denies chest pain, Denies lightheadedness, Denies dyspnea and Denies other (Palpitations) Resp Denies cough, Denies dyspnea, Denies wheezing and Denies other ( shortness of breath) Musc Denies numbness and Denies tingling Neuro Denies dizziness, Denies headache(s), Denies numbness, Denies tingling, Denies paresthesias and Denies weakness Psych Reports anxiety and Reports depression Endo Denies fatigue Aller/Immun Denies wheezing Physical exam (Primary Care) Vital Signs: Last Vital Signs Pulse 79 09/18/22 13:32 BP 132/80 09/18/22 13:32 Pulse Ox 98 09/18/22 13:32 Oxygen Delivery Method Room Air 09/18/22 13:32 BMI result Body Mass Index 19.7 Tobacco/Smoking Status: Tobacco use Status Tobacco use date assessed 09/18/22 09/18/22 13:41 Patient Tobacco Use Status Former Tobacco user 09/18/22 13:33 Tobacco use type Cigarette 09/18/22 13:33 e-Cigarette/Vaping Use Never Used 09/18/22 13:33 PHQ-9: PHQ-9 Score PHQ-9: Total score 09/18/22 13:49 Thrive Assessment: Date of Thrive Assessment Date Thrive assessed 08/18/21 09/18/22 13:33 Const General: no acute distress and well developed Nutritional Appearance: well nourished Orientation/consciousness: patient oriented x3 HENMT Head: Yes normocephalic and Yes atraumatic Eyes General: appearance normal, both eyes and all related structures Pupils: Equal, round and reactive pupils present EOM: EOMs intact bilaterally Resp Effort & Inspection: normal respiratory effort Auscultation: clear to auscultation bilaterally Cardio Rate: regular rate Rhythm: regular rhythm Heart sounds: S1 normal heart sound present, S2 normal heart sound present, no gallops, no murmurs and no rubs Neuro General: patient oriented x3 and gait normal Cranial nerves: Yes Equal, round and reactive pupils present Psych Affect: Anxious affect present Assessment and Plan Assessment & Plan (1) Anxiety with depression: Code(s): F41.8 - Other specified anxiety disorders Plan: Patient is using lorazepam up to 2 mg b.i.d. for anxiety. Had tested urine benzodiazepine drug screen and these were negative though patient was assuring me that she was taking her medications as prescribed and her pill counts were appropriate. GCMS testing for lorazepam is positive. She appears to be taking her medication as prescribed Will continue 2 mg b.i.d. p.r.n. anxiety and will return to 30 day prescriptions. Medications: Changed From lorazepam [facility] verified. Partial refill upon request. 2 mg (2 x 1 mg) PO BID 20 days PRN 40 tabs 0RF anxiety To lorazepam [facility] verified. Partial refill upon request. 2 mg (2 x 1 mg) PO BID PRN 60 tabs 0RF anxiety 30 days Discontinued oxycodone Partial Fill upon patient request. 5 mg PO Q6H PRN 60 tabs 0RF Pain morphine ER Partial Fill upon patient request. 30 mg PO Q12H 60 tabs 0RF oxycodone Partial Fill upon patient request. 5 mg PO Q6H PRN 60 tabs 0RF Pain morphine ER Partial Fill upon patient request. 30 mg PO Q12H 60 tabs 0RF oxycodone Partial Fill upon patient request. 5 mg PO Q6H PRN 60 tabs 0RF Pain morphine ER Partial Fill upon patient request. 30 mg PO Q12H 60 tabs 0RF oxycodone Partial Fill upon patient request. 5 mg PO Q6H PRN 60 tabs 0RF Pain morphine ER Partial Fill upon patient request. 30 mg PO Q12H 60 tabs 0RF oxycodone Partial Fill upon patient request. 5 mg PO Q6H PRN 60 tabs 0RF Pain oxycodone Partial Fill upon patient request. 5 mg PO Q6H PRN 60 tabs 0RF Pain oxycodone Partial Fill upon patient request. 5 mg PO Q6H PRN 60 tabs 0RF Pain oxycodone Partial Fill upon patient request. 5 mg PO Q6H PRN 60 tabs 0RF Pain morphine ER Partial Fill upon patient request. 30 mg PO Q12H 60 tabs 0RF oxycodone Partial Fill upon patient request. 5 mg PO Q6H PRN 60 tabs 0RF Pain Coding Level of Care Code Est Pt Level 3 (22278) Diagnoses Anxiety with depression F41.8
== END 2022-09-18 14:11 | disposition home or self-care (01) ==
LOC: HO.HMGFM 13:30
PROVIDERS: PCP Family Medicine; Visit Provider Family Medicine
DX: F41.8 Other specified anxiety disorders (principal)
CPT/HCPCS: 99213

== ENCOUNTER 2022-09-21 14:05 | Outpatient (REF) | payer MEDICARE, MEDICAID, SELFPAY ==
--- NOTE | ~2022-09-21 | MM_ITS ---
EXAMINATION: BONE DENSITOMETRY CLINICAL INDICATION: Age-related osteoporosis without current pathological fracture. COMPARISON: Previous BD dated 09/02/2020 and baseline BD dated 08/21/2018. TECHNIQUE: Using a [employer]ine DXA System (software version: 13.1) manufactured by [employer], dual-energy x-ray absorptiometry was performed of the lumbar spine and left hip. The images are of good technical quality. Summary results are attached. FINDINGS: AP SPINE L1-L2 (excluding L3 and L4): The data of L1-L4 has been changed to exclude the L3 and L4 vertebral bodies, because degenerative sclerosis at these levels may cause overestimation of lumbar spine density. Current: BMD 1.058 g/cm2, Z-score 0.4, T-score -0.9, normal, 0.9% decrease from previous, 4.3% increase from baseline (<5% change is not significant). Prior: BMD 1.068 g/cm2. Baseline: BMD 1.014 g/cm2. LEFT FEMUR, NECK: Current: BMD 0.733 g/cm2, Z-score -0.9, T-score -2.2, osteopenia. Prior: BMD 0.753 g/cm2. Baseline: BMD 0.762 g/cm2. LEFT FEMUR, TOTAL: Current: BMD 0.677 g/cm2, Z-score -1.6, T-score -2.6, osteoporosis, 10.0% decrease from previous, 9.6% decrease from baseline (<5% change is not significant). Prior: BMD 0.752 g/cm2. Baseline: BMD 0.749 g/cm2. IDENTIFIED RISK FACTORS: Rheumatoid arthritis. Recurrent falls. Menopause. Glucocorticoids (chronic). HISTORY OF FRACTURE: None listed. MEDICATIONS: None listed. MM/XR DEXA axial skeleton IMPRESSION: 1. DIAGNOSIS: Osteoporosis based on the lowest T-score value of -2.6 in the femoral neck applying World Health Organization criteria. 2. 10-YEAR FRACTURE RISK PREDICTION, FRAX: According to the guidelines, FRAX calculation should only be performed on patients in the osteopenia bone density category. Therefore, FRAX was not performed on this patient.? 3. Treatment Recommendations: NOF guidelines recommend consideration for treatment in postmenopausal women and men age 50 and older presenting with the following: -A hip or vertebral (clinical or morphometric) fracture. -T-score less than or equal to -2.5 at the femoral neck or spine after appropriate evaluation to exclude secondary causes. -Low bone mass at the hip or spine and a 10-year fracture probability by FRAX of greater than or equal to 3% for hip fracture or greater than or equal to 20% for major osteoporotic fracture based on the [place] adapted WHO algorithm. 4. Other Recommendations: All treatment decisions require clinical judgment and consideration of individual patient factors, including patient preferences, comorbidities, previous drug use, risk factors not captured in the FRAX model (e.g. frailty, falls, vitamin D deficiency, increased bone turnover, interval significant decline in bone density) and possible under or overestimation of fracture risk by FRAX. Additional medical evaluation for secondary cause of low bone mineral density may be appropriate. FUTURE SCAN RECOMMENDATION: People with diagnosed cases of osteoporosis or at high risk for fracture should have regular bone mineral density tests. For patients eligible for Medicare, routine testing is allowed once every 2 years. The testing frequency can be increased to one year for patients who have rapidly progressing disease, those who are receiving or discontinuing medical therapy to restore bone mass, or have additional risk factors.
== END 2022-09-21 14:06 | disposition home or self-care (01) ==
LOC: HO.MAMMO 14:05
PROVIDERS: Visit Provider Nurse Practitioner Family
DX: Z13.820 Encounter for screening for osteoporosis (principal); M85.80 Other specified disorders of bone density and structure, unspecified site; Z78.0 Asymptomatic menopausal state
CPT/HCPCS: 77080

== ENCOUNTER 2022-10-02 15:20 | Outpatient (RCR) | payer MEDICAID, MEDICARE, SELFPAY ==
[2022-03-02 14:58] VITALS: BP 121/66; PULSE 79; RESP 12; TEMP 36.2; O2SAT 92; BMI 24.9
--- NOTE | 2022-03-02 15:13 | HO.HEMONCSCH ---
CT biopsy is in OF, pending appt.
--- NOTE | 2022-03-02 15:35 | MHC.HEMONCMA ---
Pt was in for follow up. Clinical summary reviewed and updated, VSS. Labs were drawn. Pt to return in 1 month.
--- NOTE | 2022-03-02 16:19 | PM.HEMONCPN ---
Medical Summary - Medical Summary Date of Service: 03/02/22 Chief complaint: Follow-up Medical Summary: diagnosis: Right adrenal tumor Interval History Interval history: patient is here in follow-up after hospital discharge. She is doing a little better as she is on pain medications. She denies nausea or emesis. Her appetite is okay. She denies fever or chills. Review of Systems - Constitutional Reports as per HPI - Cardiovascular Reports no additional cardiovascular complaints - Respiratory Reports no additional respiratory complaints - Gastrointestinal Reports no additional gastrointestinal complaints [facility] Medical History: Medical History (Last Reviewed 03/02/22 @ 15:03 by Sarah Velazquez CMA) Back pain Cervical cancer Opiate abuse, episodic Osteoarthritis of both knees Osteopenia determined by x-ray Primary osteoarthritis of knees, bilateral Seropositive rheumatoid arthritis Family History: Family History (Last Reviewed 03/02/22 @ 15:03 by Sarah Velazquez CMA) Father Acute CVA (cerebrovascular accident) Mother Hypertension Hypercholesterolemia Brother Liver transplant status Family history of thyroid problem Surgical History: Surgical History (Last Reviewed 03/02/22 @ 15:03 by Sarah Velazquez CMA) History of appendectomy History of cholecystectomy History of D&C History of tonsillectomy Social History: Social History (Last Updated 03/02/22 @ 15:04 by Sarah Velazquez CMA) Living Situation History: Household Members: Children Housing: House 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 How often do you have a drink containing alcohol?: a. Never Tobacco History: Patient Tobacco Use Status: Former Tobacco user Tobacco use type: Cigarette Smoke Quit Date: 2016 e-Cigarette/Vaping Use: Never Used Second Hand Smoke Exposure: No Substance Use History: Use of substances other than those prescribed or required for medical reasons: No Domestic Abuse History: Have you been hit, kicked, punched, or otherwise hurt by someone within the past year? 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 Medications and Allergies Home Medications Medication Instructions Recorded Confirmed Type lorazepam 1 mg tablet 1 tab PO Q8H PRN Anxiety 02/21/22 03/02/22 History celecoxib 200 mg capsule (Celebrex) 200 mg PO BID PRN pain 03/02/22 03/02/22 History Allergies Allergy/AdvReac Type Severity Reaction Status Date / Time buprenorphine [Belbuca] Allergy Intermediate nausea Verified 03/02/22 15:05 Exam Vital signs: Vital Signs Temp 97.2 F 03/02/22 14:58 Pulse 79 03/02/22 14:58 Resp 12 03/02/22 14:58 BP 121/66 03/02/22 14:58 Pulse Ox 92 03/02/22 14:58 O2 Del Method 03/02/22 14:58 Intake & Output 03/01/22 03/02/22 03/02/22 18:59 06:59 18:59 Other: Weight 68 kg [place] Weight in Grams 35534 Weight 68 kg BMI result Body Mass Index 24.9 - Constitutional Present: no acute distress - Routine HEENT Exam Head: Present: normal inspection Eye: Present: EOMI, PERRL - Routine Neck Exam Present: full ROM. Absent: lymphadenopathy - Routine Respiratory Exam Present: CTAB. Absent: accessory muscle use - Routine Cardiovascular Exam Cardiovascular: Present: S1, S2 - Routine Abdominal Exam Present: soft - Routine Extremities Exam Present: normal inspection - Routine Skin Exam Present: intact. Absent: cyanosis - Routine Neurological Exam Present: alert, oriented X3 Data - Labs CBC & Chem 7: 03/02/22 14:56 03/02/22 14:56 Labs: 03/02/22 14:56 Complete Blood Count no Diff Stat 03/02/22 16:13 Add Laboratory Test Routine Laboratory Last Values WBC 4.7 X10*3/uL (4.8-10.8) L 03/02/22 14:56 RBC 4.19 X10*6/uL (4.20-5.50) L 03/02/22 14:56 Hgb 10.8 g/dl (12.0-16.0) L 03/02/22 14:56 Hct 34.1 % (37.0-47.0) L 03/02/22 14:56 MCV 81.4 fL (80.0-98.0) 03/02/22 14:56 MCH 25.8 pg (27.0-33.0) L 03/02/22 14:56 MCHC 31.7 g/dl (31.0-35.0) 03/02/22 14:56 RDW 14.2 % (11.0-16.0) 03/02/22 14:56 Plt Count 376 X10*3/uL (160-400) 03/02/22 14:56 MPV 9.0 fL (9.4-12.3) L 03/02/22 14:56 Absolute Nucleated RBC 0.000 X10*3/uL (0.0-0.012) 03/02/22 14:56 Nucleated RBC % (auto) 0.0 /100WBC (0.0-0.2) 03/02/22 14:56 Lactate Dehydrogenase 186 U/L (122-220) 03/02/22 14:56 Carcinoembryonic Ag 8.30 ng/mL 03/02/22 14:56 Assessment and Plan Patient Active problem list reviewed?: Yes (1) Adrenal mass greater than 4 cm in diameter Status: Acute Assessment and plan: 1. This is a 66-year-old woman presenting with right flank pain and found to have large adrenal mass suspicious for carcinoma. CT abdomen/ pelvis performed 02/21 with IV contrast revealed a 6.2 x 5.3 cm mass in the right adrenal gland extending into retrocaval space and retroperitoneum. IVC is inseparable from this mass likely invaded. Enlarged left inguinal lymph node, enlarged periportal and upper retroperitoneal lymph nodes measuring up to 0.9 cm. Trace amount of ascites in the right paracolic gutter. She does not appear to have any symptoms of hormone excess such as Stow syndrome or glucocorticoid excess. Her potassium level is normal. She probably has nonfunctioning tumor, however pheochromocytoma will have to be ruled out before biopsy. Serum metanephrine levels are normal. Acth and cortisol levels are suppressed probably related to chronic prednisone use for rheumatoid arthritis. I have had multiple discussions with both mercerizer as well as surgeon at [facility]. The plan is to proceed with biopsy. Dr. London did not think he would be able to do upfront surgery because of the size of tumor which is quite extensive. Other possibilities such as metastasis and lymphoma or also in the differential diagnosis. Blood work today shows normal LDH with mildly elevated CEA level. CT chest with contrast did not show any suspicious lesions. I discussed performing biopsy, this will be scheduled with intervention Radiology. For pain control she is on oxycodone 4 mg every 4 hours as needed. Patient was advised not to take any aspirin or NSAIDs. Follow up in 2 weeks - Time Spent With Patient Time Spent with Patient (in minutes): 25
--- NOTE | 2022-03-07 09:02 | MHC.HEMONC ---
Referral filled out on line for Surgical Consultation for adrenal mass. Notes faxed to [facility] for them to review. Dr Durbin had discussed making the referral with pt at last visit.Pt is having bx of mass tomorrow.
--- NOTE | 2022-03-09 15:20 | MHC.HEMONC ---
[place] [facility] notes re-faxed to different number for review prior to pt getting an appt.
--- NOTE | 2022-03-13 15:44 | MHC.HEMONCMA ---
Contacted patient about request to increase her pain meds, per Dr. Durbin its too quick, she will send rx for 5mg and another medication to take with it to make it last. 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
--- NOTE | 2022-03-13 16:26 | MHC.HEMONC ---
Referral to [facility] canceled per Dr Durbin request.
--- NOTE | 2022-03-13 16:44 | MHC.HEMONC ---
Telephone call from pt regarding pain med. Prescription sent for Oxycontin, and pt is asking for oxycodone. Last prescription sent on 03/06 for 30 tabs q6h. Spoke with Dr Durbin, and she will send another prescription.
--- NOTE | 2022-03-14 08:56 | MHC.HEMONC ---
Notes faxed to [facility] at [facility] for referral per request of Dr Durbin. She will contact patient by phone re: referral.
--- NOTE | 2022-03-14 10:16 | P.PNHO-ONC_ITS ---
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 Post at [facility]. She received cisplatin from 11/15/2016 to 12/20/2016, external beam radiation therapy from 11/15/2016 to 2016. Vaginal brachytherapy 12/31/2016 and 01/07/2017 at [facility]. Interval History Interval history: This is scheduled tele visit for patient. She underwent right adrenal bio psy last week. she says the 5 mg oxycodone is not helping her enough. She wanted to increase dose to 10 mg. She was recommending long-acting MS Contin for pain control, she has not yet picked up the medication. She denies fever, chills, change in bowel habits, nausea or emesis. Review of Systems - Constitutional Reports as per HPI Home Medications and Allergies Home Medications Medication Instructions Recorded Confirmed Type lorazepam 1 mg tablet (Ativan) 1 tab PO Q8H PRN Anxiety 02/21/22 03/14/22 History celecoxib 200 mg capsule (Celebrex) 200 mg PO BID PRN pain 03/02/22 03/14/22 H istory Allergies Allergy/AdvReac Type Severity Reaction Status Date / Time buprenorphine [Belbuca] Allergy Intermediate nausea Verified 03/02/22 15:05 Exam Vital signs: Vital Signs Temp 97.2 F 03/02/22 14:58 Pulse 79 03/02/22 14:58 Resp 12 03/02/22 14:58 BP 121/66 03/02/22 14:58 Pulse Ox 92 03/02/22 14:58 O2 Del Method 03/02/22 14:58 Weight 68 kg BMI result Body Mass Index 24.9 - Constitutional Present: no acute distress - Routine HEENT Exam Head: Present: normal inspection - Routine Neck Exam Present: full ROM. Absent: lymphadenopathy - Routine Respiratory Exam Present: CTAB. Absent: accessory muscle use - Routine Cardiovascular Exam Cardiovascular: Present: S1, S2 - Routine Abdominal Exam Present: soft - Routine Extremities Exam Present: normal inspection - Routine Skin Exam Present: intact. Absent: cyanosis - Routine Neurological Exam Present: alert, oriented X3 Data - Labs CBC & Chem 7: 03/02/22 14:56 03/02/22 14:56 Assessment and Plan Patient Active problem list reviewed?: Yes (1) Adrenal mass greater than 4 cm in diameter Status: Acute Assessment and plan: 1. This is a 66-year-old woman presenting with right flank pain and found to have large adrenal mass suspicious for carcinoma. CT abdomen/ pelvis performed 02/21 with IV contrast revealed a 6.2 x 5.3 cm mass in the right adrenal gland extending into retrocaval space and retroperitoneum. IVC is inseparable from this mass likely invaded. Enlarged left inguinal lymph node, enlarged periportal and upper retroperitoneal lymph nodes measuring up to 0.9 cm. Trace amount of ascites in the right paracolic gutter. 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 She had extensive endocrine workup, she was ruled out for pheochromocytoma. She underwent right adrenal smith core biopsy on 03/08/2022 which revealed metastatic squamous cell carcinoma, moderate to poorly differentiated involving fibrous soft tissue. Findings likely represent a metastasis from patient's cervical primary. Blood work today shows normal LDH with mildly elevated CEA level. CT chest with contrast did not show any suspicious lesions. I will refer her back to [facility] at [facility]. For stage IV cervical cancer, she will probably need chemotherapy but will get their recommendation to see if she is a candidate for cytoreductive surgery or radiation therapy as she is in significant pain. For pain control she is on oxycodone 4 mg every 4 hours as needed. She was also started on MS Contin 30 mg every 12 hours. Follow up in 4 weeks - Time Spent With Patient Time Spent with Patient (in minutes): 10
--- NOTE | 2022-03-14 11:11 | MHC.HEMONCMA ---
patient had televisit via phone with provider, agrees to speaking with her over phone,confirmed medical record, sent to [facility] for eval.
--- NOTE | 2022-03-15 11:20 | MHC.HEMONC ---
Pt has appt with Dr Vianca Newton FINANCIAL AUDITOR ONC on 03/21/22 at [address] [facility]. Pt is aware.
--- NOTE | 2022-03-20 14:09 | MHC.HEMONC ---
Triage call from pt. She has appointment scheduled for senior asset manager onc in AM and is trying to get a ride. [employer] van does not pick pack worker early enough for her to get there for 8AM, and our hospital transportation van does not go to [place]. Flor Breen to try to arrange Lyft, and pt states she will also try to see if she can change her appointment to a little later time. Will call pt back regarding lyft. Pt also asking for refill for oxycodone, given to Dr Durbin.
--- NOTE | 2022-03-20 15:51 | MHC.HEMONC ---
Nuria scheduled to tile picker pt in AM between 7:10-7:25 to bring her to her appt at [address] [place] [address]. Pt called and notified.
--- NOTE | 2022-03-30 15:16 | MHC.HEMONC ---
I tried calling pt back regarding her call here for rx Lorazapam. Her mailbox was full so I was unable to leave message. She has appt here with Dr Durbin on Saturday.
[2022-04-02 12:30] VITALS: BMI 24.0
[2022-04-02 12:35] VITALS: BP 162/86; PULSE 73; RESP 18; TEMP 35.9; O2SAT 97
--- NOTE | 2022-04-02 14:06 | P.PNHO-ONC_ITS ---
Medical Summary - Medical Summary Date of Service: 04/02/22 Chief complaint: Follow-up Medical Summary: Diagnosis: poorly differentiated squamous cell carcinom, metastatic cervical cancer, 02/2022 History of stage IIIB squamous carcinoma of cervix, treated by Dr. Post at [facility]. She received cisplatin from 11/15/2016 to 12/20/2016, external beam radiation therapy from 11/15/2016 to 2016. Vaginal brachytherapy 12/31/2016 and 01/07/2017 at [facility]. Presented with right flank pain and found to have large adrenal mass suspicious for carcinoma. CT abdomen/ pelvis performed 02/21 with IV contrast revealed a 6.2 x 5.3 cm mass in the right adrenal gland extending into retrocaval space and retroperitoneum. IVC is inseparable from this mass likely invaded. Enlarged left inguinal lymph node, enlarged periportal and upper retroperitoneal lymph nodes measuring up to 0.9 cm. Trace amount of ascites in the right paracolic gutter. 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 She had extensive endocrine workup, she was ruled out for pheochromocytoma. She underwent right adrenal smith core biopsy on 03/08/2022 which revealed metastatic squamous cell carcinoma, moderate to poorly differentiated involving fibrous soft tissue. Findings likely represent a metastasis from patient's cervical primary. Blood work today shows normal LDH with mildly elevated CEA level. CT chest with contrast did not show any suspicious lesions. Interval History Interval history: Patient is here in follow-up, she is accompanied by her son today. She was seen at [facility] obstetrician gynecologist Oncology, she is not a candidate for any surgery. She was recommended palliative/systemic chemotherapy. She finds it difficult to go to [facility], she does not drive and her family has to take time off to bring her for treatment. She lives closer to [place] and would prefer to continue her treatment here. She continues to be in pain and is taking pain medication around the clock. She ran out of pain medicines over the weekend, she does admit to taking medications more frequently at times. She also has chronic anxiety issues. Her PCP has been trying to control this with antidepressants a part from lorazepam. She reports no other acute complaints such as chest pain, shortness of breath, fever or chills. She has chronic pain in her right upper quadrant. Her joint pains have improved as she is taking oxycodone. [facility] Medical History: Medical History (Last Reviewed 03/14/22 @ 10:15 by Loly Johnson) Back pain Cervical cancer Opiate abuse, episodic Osteoarthritis of both knees Osteopenia determined by x-ray Primary osteoarthritis of knees, bilateral Seropositive rheumatoid arthritis Family History: Family History (Last Reviewed 03/14/22 @ 10:15 by Loly Johnson) Father Acute CVA (cerebrovascular accident) Mother Hypertension Hypercholesterolemia Brother Liver transplant status Family history of thyroid problem Surgical History: Surgical History (Last Reviewed 03/14/22 @ 10:15 by Loly Johnson) History of appendectomy History of cholecystectomy History of D&C History of tonsillectomy Social History: Social History (Last Reviewed 03/14/22 @ 10:15 by Loly Johnson) Living Situation History: Household Members: Children Housing: House Are you a primary neurocritical care physician to a significant other at home: Yes Are you a primary neurocritical care physician to a significant other at home comment: mom Do you presently have visiting nurse or other home services: No Alcohol History Details: 1. How often do you have a drink containing alcohol?: a. Never Tobacco History: Patient Tobacco Use Status: Former Tobacco user Tobacco use type: Cigarette Smoke Quit Date: 2016 e-Cigarette/Vaping Use: Never Used Second Hand Smoke Exposure: No Substance Use History: Use of substances other than those prescribed or required for medical reasons : No Domestic Abuse History: Have you been hit, kicked, punched, or otherwise hurt by someone within the past year? 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 Medications and Allergies Home Medications Medication Instructions Recorded Confirmed Type lorazepam 1 mg tablet (Ativan) 1 tab PO Q8H PRN Anxiety 02/21/22 03/14/22 History Allergies Allergy/AdvReac Type Severity Reaction Status Date / Time buprenorphine [Belbuca] Allergy Intermediate nausea Verified 03/02/22 15:05 Exam Vital signs: Vital Signs Temp 96.7 F L 04/02/22 12:35 Pulse 73 01/23/23 12:35 Resp 18 04/02/22 12:35 BP 162/86 H 04/02/22 12:35 Pulse Ox 97 04/02/22 12:35 O2 Del Method 04/02/22 12:35 Intake & Output 04/01/22 04/02/22 04/02/22 18:59 06:59 18:59 Other: Weight 65.5 kg [place] Weight in Grams [id number] Weight 65.5 kg BMI result Body Mass Index 24.0 - Constitutional Present: no acute distress - Routine HEENT Exam Head: Present: normal inspection - Routine Neck Exam Present: full ROM. Absent: lymphadenopathy - Routine Respiratory Exam Present: CTAB. Absent: accessory muscle use - Routine Cardiovascular Exam Cardiovascular: Present: S1, S2 - Routine Abdominal Exam Present: soft - Routine Extremities Exam Present: normal inspection - Routine Skin Exam Present: intact. Absent: cyanosis - Routine Neurological Exam Present: alert, oriented X3 Data - Labs CBC & Chem 7: 03/02/22 14:56 03/02/22 14:56 Assessment and Plan Patient Active problem list reviewed?: Yes (1) Adrenal mass greater than 4 cm in diameter Status: Acute Assessment and plan: 1. This is a 67-year-old woman with metastatic cervical cancer, poorly differentiated squamous cell carcinoma diagnosed 03/08/2022. CT abdomen/ pelvis performed 02/21 revealed a 6.2 x 5.3 cm mass in the right adrenal gland extending into retrocaval space and retroperitoneum. IVC is inseparable from this mass likely invaded. Enlarged left inguinal lymph node, enlarged periportal and upper retroperitoneal lymph nodes measuring up to 0.9 cm. Trace amount of ascites in the right paracolic gutter. She underwent right adrenal smith core biopsy on 03/08/2022 which revealed metastatic squamous cell carcinoma, moderate to poorly differentiated involving fibrous soft tissue. Findings likely represent a metastasis from patient's cervical primary. CT chest with contrast did not show any suspicious lesions. She was seen at [facility], she has not been recommended any surgery or upfront radiation therapy for pain control. She has been recommended systemic chemotherapy. She understands that she has stage IV cancer and treatment is for palliation. She would like to receive chemotherapy at [facility] since this is much closer to her home and she is dependent on her children for rides to the hospital. I have asked the pathologist to perform PDL1, RET and NTRK fusion mutations. I discussed combination chemotherapy with carboplatin, Taxol and pembrolizumab if she is positive for PDL1 mutation. If negative, she will be started on carboplatin and Taxol. Bevacizumab to be decided after a few cycles and imaging as currently there appears to be some suspicion of vascular invasion. We discussed possible side effects such as gastrointestinal, hair loss, neuropathy, infusion reactions and risk of infections. She will be scheduled for a formal chemotherapy teach appointment. All her questions were answered. 2. For pain control she is on oxycodone 4 mg every 4 hours as needed and MS Contin 30 mg every 12 hours. She has longstanding issues of pain and was on narcotics previously for arthritic pain. She understands terms of pain contract, she will stay on the dose she has been prescribed and not seek narcotic pain medications from different providers. Follow up in 4 weeks - Time Spent With Patient Time Spent with Patient (in minutes): 35
--- NOTE | 2022-04-02 14:33 | MHC.HEMONC ---
I sat in with pt while she met with Dr Durbin following up from her appt with Dr Newton ([facility] at [facility]). She is accompanied by her son. She is not a surgical candidate and could start chemotherapy. Agents would be Paclitaxel/Carboplatin every 3 weeks with Avastin added at some point. Some molecular studies still pending. She wants to receive chemo here at [facility]. She refuses a port for now. She will be scheduled for a PET and would prefer to wait until 04/10. We will do teach that day and start the chemo 04/11. She is in agreement with plan. gillian has information for PA and Tracy will work on PET appt.
--- NOTE | 2022-04-02 15:42 | HO.HEMONCPA ---
RECEIVED PET CT ORDER TODAY , PATIENT DOES NOT NEED REFFERAL BECAUSE PT HAS [employer] . I SENT CLINICAL INFORMATION TO [facility] , AWAITING APPT DATE AND TIME .
--- NOTE | 2022-04-03 15:32 | HO.HEMONCPA ---
PA foR Paclitaxel, Carboplatin, Bevacizumab, Pembrolizumab, Emend,and Neulasta REQUESTED. AWAITING DECISION
--- NOTE | 2022-04-04 09:39 | HO.HEMONCPA ---
RECENT ORDER TO [facility] REGARDING PET CT , AWAITING APPT DATE & TIME
--- NOTE | 2022-04-06 12:10 | HO.HEMONCPA ---
Addendum entered by Radha Breen 04/06/22 12:35: NO PA REQUIRED FOR CARBOPLATIN, & PACLITAXEL PER [employer]GL[facility] WEBSITE on 04/06/22. PER [employer] FAXED DOCUMENT, NO PA REQUIRED for Avastin (bevacizumab) & Keytruda. Document scanned in the chart. Original Note: NO PA REQUIRED FOR CARBOPLATIN, & PACLITAXEL PER [employer] [facility] WEBSITE on 04/06/22. PER [employer] FAXED DOCUMENT, NO PA REQUIRED for Avastin (bevacizumab). Ducment scanned in the chart.
--- NOTE | 2022-04-06 17:44 | HO.HEMONCSCH ---
Pt called, said she'd been told to expect a call to schedule her PET scan on 04/10/22, the same day she'll be coming in for her chemo teach appt, the day before her chemo is supposed to start on 04/11/22. Pt is concerned because she was told the PET must be done before her chemo starts. Pt asked that [facility] call her on her son Joon's phone: [phone], as her phone is unreliable. [employer] Radha notified [facility] rep. At close of the day, nurse checked w/ pt and her son, Joon, and unfortunately, they were never contacted to book PET. Nurse informed Dr. Durbin's BHANU Salcido and Manager Garcia, also told pt's son, Joon, this office would f/u w/ pt on Sat morning about PET scan and chemo scheduling.
--- NOTE | 2022-04-09 11:13 | HE.ONCSEC ---
PATIENTS SON CALLED IN REGARDS TO MOTHER , HE HAD QUESTIONS ABOUT PET CT ( REGARDING THE TIME ) . HE NOTIFIED ME THAT HE WANTED TO CHANGE CHEMO TEACH DAY AND WANTS TO WAIT FOR PET SCAN TO DECIDE IF THEY WANT TO CONTINUE WITH THE CHEMO OPTION OR PURSUE OTHER OPTIONS.
--- NOTE | 2022-04-09 11:15 | HE.ONCSEC ---
I CALLED [facility] AND WAS UNABLE TO GET AHOLD OF THEM TO INFORM PTS SON OF HIS MOM'S PET CT TIME SO I LEFT A VOICEMAIL . I THEN CALLED PATIENT'S SON TO INFORM THEM I CALLED BUT WAS UNABLE TO GET AHOLD OF THEM , THEN SON INFORMED ME THAT HE RECEIVED A CALL AND THAT , THAT PART IS ALL SET . I THEN TRANSFERRED THE CALL TO YARITZA SO SHE CAN ASSIST ON PT'S QUESTIONS REGARDING CHEMO TEACH AND CHEMO .
--- NOTE | 2022-04-09 11:31 | MHC.HEMONC ---
Triage call from pts son regarding chemo teach. Pt has PET scheduled for 04/10 at 1315, and he can not bring her in for scheduled teach at 1100 due to work schedule. He is asking to have teach changed to after PET. Appointment time changed to 1500. Pt also asking for refill for MS contin and oxycodone, and for Ativan for PET. Refill request given to Dr Durbin.
--- NOTE | 2022-04-09 12:47 | MHC.HEMONCMA ---
Tried to reach out to patient to discuss pain medication, Unable to leave VM box is full and not answering call, please get me or Dr. Durbin to talk with patient directly.
--- NOTE | 2022-04-09 15:08 | HO.HEMONCPA ---
PET CT IS SCHEDULED FOR 04/10/22 AT 1:15PM
--- NOTE | 2022-04-10 11:53 | HO.HEMONCPA ---
No PA required for emend, and neulasta on-pro per [facility] on 04/10/22 at 11:54am
[2022-04-10 16:02] LABS: MANUAL DIFF FLAG NO
[2022-04-10 16:10] LABS: Basophils Percent Auto 0.7 % (0-2); Eosinophils Absolute Auto 0.1 X10*3/uL (0.0-0.4); Eosinophils Percent Auto 2.4 % (0-4); Hemoglobin 11.5 g/dl (12.0-16.0); Imm Gran Abs Auto 0.01 X10*3/uL (0.00-0.03); Imm Gran Pct Auto 0.2 % (0.0-0.4); Lymphocytes Absolute Auto 1.4 X10*3/uL (1.2-4.9); Mean Corpuscular HGB Conc 31.9 g/dl (31.0-35.0); Mean Corpuscular Hemoglobin 25.1 pg (27.0-33.0); Mean Corpuscular Volume 78.4 fL (80.0-98.0); Mean Platelet Volume 9.2 fL (9.4-12.3); Monocytes Absolute Auto 0.4 X10*3/uL (0.1-1.2); Monocytes Percent Auto 6.9 % (2-11); Neutrophils Absolute Auto 3.4 x10*3/uL (2.0-8.3); Neutrophils Percent Auto 63.8 % (45-73); Platelet Count 281 X10*3/uL (160-400); Red Blood Count 4.59 X10*6/uL (4.20-5.50); Red Cell Distribution Width 14.2 % (11.0-16.0); White Blood Count 5.4 X10*3/uL (4.8-10.8)
--- NOTE | 2022-04-10 16:35 | MHC.HEMONC ---
Pt here for chemotherapy teach accompanied by her son Kevin.Schedule and Carboplatin/taxol and pembrolizumab side effects reviewed. Home medications (zofran as needed and dexamethasone for 2 days after chemo) discussed.She is reluctant to have a port placed and would like to have treatment peripherally. She will need transportation to and from all appointments, request given to Radha. She will begin treatment this Saturday04/13/2022. Will discuss with Evelyn Concepcion has questions regarding services in her home.
[2022-04-10 16:37] LABS: Alanine Aminotransferase 7 U/L (0-31); Albumin Level 3.8 g/dL (3.5-5.0); Alkaline Phosphatase 130 U/L (39-117); Anion Gap 10 (12-20); Aspartate Amino Transferase 20 U/L (5-31); Bilirubin Total 0.5 mg/dL (0.0-1.0); Blood Urea Nitrogen 12 mg/dL (9-16); Calcium 8.9 mg/dL (8.4-10.2); Carbon Dioxide 30 mmol/L (22-29); Chloride 104 mmol/L (96-108); Creatinine Clr Calc Pharmacy 51.4; Estimated Glomerular Filt Rate 57; Glucose Random 138 mg/dL (60-115); Potassium 3.6 mmol/L (3.3-5.1); Sodium 140 mmol/L (135-145); Total Protein 6.6 g/dL (6.5-8.0)
[2022-04-10 16:51] LABS: Thyroid Stimulating Hormone 2.02 uIU/mL (0.32-4.0)
[2022-04-11 05:01] LABS: HBS Num1 0.11 mIU/mL (0-7.99); HBc Num1 0.14 S/CO (0.00-0.79); HBsAGNum1 3.03 S/CO (0.00-0.99); Hepatitis B Core Antibody Nonreactive (Nonreactive); ~Hepatitis B Surface Antibody NONREACTIVE (Nonreactive)
[2022-04-11 06:26] LABS: HBsAGNum2 Reactive; HBsAGNum3 Reactive; Hepatitis B Surface Antigen Retest CNFM (Negative)
[2022-04-11 09:39] LABS: Neutralization % -3; R2 S/CO 1.24 S/CO
[2022-04-11 09:40] LABS: Hepatitis B Surface Antigen Rep Reactive (Negative)
[2022-04-11 09:56] LABS: Hepatitis B Surface Antigen Rep Reactive (Negative)
--- NOTE | 2022-04-11 16:34 | MHC.HEMONC ---
Addendum entered by Vikas Berg RN 04/11/22 17:17: Pt's son, Joon, called back, he verbalized understanding that pt's appt is on 9am on 04/13/22, and that she'll be picked up outside her home at 08:25. Nurse also reminded him that [facility] shuttle picks pt up on the street, they will not come to the door. Joon was appreciative. Original Note: I left message on pt son voicemail that pt will be picked up at her home Saturday at 8:25 am for chemo here. Chemo appt changed to 9 am. Vikas will f/u on this tomorrow as I was unable to leave message on pt cell.
--- NOTE | 2022-04-12 09:03 | MHC.HEMONC ---
Refill request for Oxycodone. Request given to Dr. Cortez who is covering for Dr. Durbin.
[2022-04-13 09:01] VITALS: BP 162/74; PULSE 73; RESP 18; TEMP 37.1; O2SAT 95; BMI 24.0
[2022-04-13] MEDS: ondansetron HCL 16 MG in 0.9 % Sodium Chloride 50 ML 232 MG IV (10:05)
[2022-04-13] MEDS: Famotidine/PF 20 MG/2 ML VIAL IVPUSH (10:13)
[2022-04-13] MEDS: dexAMETHasone sod phosphate 12 MG in 0.9 % Sodium Chloride 50 ML 212 MG IV (10:13)
[2022-04-13] MEDS: Acetaminophen 325 MG TABLET 650 MG PO (10:14)
[2022-04-13] MEDS: diphenhydrAMINE HCL 50 MG/ML VIAL 25 MG IVPUSH (10:21)
[2022-04-13] MEDS: Fosaprepitant Dimeglumine 150 MG in 0.9 % Sodium Chloride 145 ML 300 MG IV (11:12)
[2022-04-13] MEDS: oxyCODONE HCl Immed Release 5 MG TABLET PO (13:55)
[2022-04-13] MEDS: LORazepam 1 MG TABLET PO (16:02)
[2022-04-13] MEDS: Pegfilgrastim Onpro 6 MG/0.6 ML SYR.W..INJ SUBCUT (16:14)
--- NOTE | 2022-04-13 16:55 | MHC.HEMONC ---
C1D1: PEMBRO/CARBO/TAXOL (3HOURS) HOLDING AVASTIN. Labs obtained on 04/10/22 and reviewed. Patient reports feeling well. VSS. #22 angio placed to right hand without difficulty- positive blood return. Pre-medicated with Tylenol 650mg PO, Dexamethasone 12mg IV, Benadryl 25mg IV, Pepcid 20mg IV, Zofran 16mg and Emend 150mg IV. Infusions well tolerated. No signs of reaction noted. Patient c/o pain to lower back repositioned- Oxycodone 5mg PO administered at 1355. Patient resting quietly. Neulasta on Pro administered to left upper arm. Patient to remove tomorrow at approximately 830pm. Discharge packet provided - with components engineer number. Patient instructed to take Dexamethasone 4mg by mouth for two days following chemotherapy. Also reviewed instructions with son Walter. Patient verbalizes understanding. IV removed. Post weekly labs scheduled.
[2022-04-20 13:32] LABS: Hematocrit 34.3 % (37.0-47.0); Hemoglobin 10.7 g/dl (12.0-16.0); Mean Corpuscular HGB Conc 31.2 g/dl (31.0-35.0); Mean Corpuscular Hemoglobin 24.8 pg (27.0-33.0); Mean Corpuscular Volume 79.6 fL (80.0-98.0); Mean Platelet Volume 10.3 fL (9.4-12.3); Platelet Count 202 X10*3/uL (160-400); Red Blood Count 4.31 X10*6/uL (4.20-5.50); Red Cell Distribution Width 14.3 % (11.0-16.0)
[2022-04-20 13:33] LABS: WBC ABN SCTR FOR CBC 1
[2022-04-20] MEDS: 0.9 % Sodium Chloride 1,000 ML 500 ML IV (13:35)
[2022-04-20 13:42] LABS: Alanine Aminotransferase 30 U/L (0-31); Albumin Level 3.8 g/dL (3.5-5.0); Alkaline Phosphatase 418 U/L (39-117); Anion Gap 15 (12-20); Aspartate Amino Transferase 38 U/L (5-31); Bilirubin Total 0.4 mg/dL (0.0-1.0); Blood Urea Nitrogen 4 mg/dL (9-16); Calcium 8.7 mg/dL (8.4-10.2); Carbon Dioxide 26 mmol/L (22-29); Chloride 103 mmol/L (96-108); Creatinine Clr Calc Pharmacy 61.5; Estimated Glomerular Filt Rate > 60; Glucose Random 102 mg/dL (60-115); Potassium 3.6 mmol/L (3.3-5.1); Sodium 140 mmol/L (135-145); Total Protein 6.6 g/dL (6.5-8.0)
[2022-04-20 13:52] VITALS: BP 128/66; PULSE 78; RESP 16; TEMP 36.3; O2SAT 95; BMI 23.3
[2022-04-20 14:08] LABS: Band Neutrophils Percent 12 % (3-5); Eosinophils Percent Manual 2 % (0-4); Lymphocytes Percent Manual 13 % (20-40); Metamyelocytes Percent 5 %; Monocytes Percent Manual 9 % (2-11); Myelocytes Percent 4 %; Neutrophils Percent Manual 53 % (45-73); Promyelocytes Percent 2 %
[2022-04-20 14:10] LABS: Dohle Bodies PRESENT; Hypochromasia 1+ (5-14) /OIF; Microcytosis 1+ (5-14) /OIF; RBC Morphology NOTED; Toxic Granulation PRESENT
[2022-04-20 14:11] LABS: Platelet Estimate NORMAL (NORMAL); Platelet Morphology Comment NORMAL; Toxic Vacuolation PRESENT
[2022-04-20 14:17] LABS: Eosinophils Absolute Manual 0.3 X10*3/uL (0.0-0.4); Lymphocytes Absolute Manual 1.8 X10*3/uL (1.2-4.9); Metamyelocytes Absolute 0.7 X10*3/uL; Monocytes Absolute Manual 1.2 X10*3/uL (0.1-1.2); Myelocytes Absolute 0.6 X10*/uL; Promyelocytes Absolute 0.3 X10*3/uL; White Blood Count 13.8 X10*3/uL (4.8-10.8)
--- NOTE | 2022-04-20 16:01 | MHC.HEMONC ---
Triage call: Patient scheduled for labs today. She reports she felt very sick after first cycle of chemotherapy with nausea, diarrhea, and poor po intake however she did not call department. Labs obtained. Patient reports occasional dizziness. 3lbs weight loss noted. 1L NS ordered. #22 angio placed to right upper arm. No vomiting. Patient reports feeling much better post hydration. Encouraged patient to eat small frequent meals and use Ondansetron when needed. Patient to return next Saturday for repeat labs. IV discontinued. Calender provided.
--- NOTE | 2022-04-23 10:49 | MHC.HEMONC ---
I left message on pt voicemail re: referral made to GI for endoscopic bx per Dr Durbin.
--- NOTE | 2022-04-25 15:47 | MHC.HEMONC ---
I faxed notes to Dr Ruby's office for pt to be seen for endoscopic bx per request of Dr Durbin.
--- NOTE | 2022-04-27 09:49 | MHC.HEMONC ---
Triage call-pt requesting refill on oxycodone-Dr Durbin notified
--- NOTE | 2022-04-27 11:49 | MHC.HEMONC ---
Per Dr Ruby's staff - they are working on getting Evelyn in for enoscope/bx.
--- NOTE | 2022-04-27 13:08 | MHC.HEMONC ---
Triage call-received second call from pt today. States she would like strength of oxycodone increased to 10mg as she continues with pain taking oxycodone 5mg-Dr Durbin notified
[2022-04-27 14:11] LABS: MANUAL DIFF FLAG NO
[2022-04-27 14:17] LABS: Basophils Percent Auto 0.6 % (0-2); Eosinophils Absolute Auto 0.1 X10*3/uL (0.0-0.4); Eosinophils Percent Auto 0.7 % (0-4); Hemoglobin 10.3 g/dl (12.0-16.0); Imm Gran Abs Auto 0.05 X10*3/uL (0.00-0.03); Imm Gran Pct Auto 0.7 % (0.0-0.4); Lymphocytes Absolute Auto 1.1 X10*3/uL (1.2-4.9); Mean Corpuscular HGB Conc 31.2 g/dl (31.0-35.0); Mean Corpuscular Hemoglobin 24.9 pg (27.0-33.0); Mean Corpuscular Volume 79.7 fL (80.0-98.0); Mean Platelet Volume 9.3 fL (9.4-12.3); Monocytes Absolute Auto 0.6 X10*3/uL (0.1-1.2); Monocytes Percent Auto 8.1 % (2-11); Neutrophils Absolute Auto 5.4 x10*3/uL (2.0-8.3); Neutrophils Percent Auto 74.9 % (45-73); Platelet Count 250 X10*3/uL (160-400); Red Blood Count 4.14 X10*6/uL (4.20-5.50); Red Cell Distribution Width 14.8 % (11.0-16.0); White Blood Count 7.2 X10*3/uL (4.8-10.8)
--- NOTE | 2022-04-27 14:26 | PM.HEMONCPN ---
Medical Summary - Medical Summary Date of Service: 04/27/22 Chief complaint: Follow-up Medical Summary: Diagnosis: poorly differentiated squamous cell carcinom, metastatic cervical cancer, 02/2022 History of stage IIIB squamous carcinoma of cervix, treated by Dr. Post at [facility]. She received cisplatin from 11/15/2016 to 12/20/2016, external beam radiation therapy from 11/15/2016 to 2016. Vaginal brachytherapy 12/31/2016 and 01/07/2017 at [facility]. Presented with right flank pain and found to have large adrenal mass suspicious for carcinoma. CT abdomen/ pelvis performed 02/21 with IV contrast revealed a 6.2 x 5.3 cm mass in the right adrenal gland extending into retrocaval space and retroperitoneum. IVC is inseparable from this mass likely invaded. Enlarged left inguinal lymph node, enlarged periportal and upper retroperitoneal lymph nodes measuring up to 0.9 cm. Trace amount of ascites in the right paracolic gutter. 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 She had extensive endocrine workup, she was ruled out for pheochromocytoma. She underwent right adrenal smith core biopsy on 03/08/2022 which revealed metastatic squamous cell carcinoma, moderate to poorly differentiated involving fibrous soft tissue. Findings likely represent a metastasis from patient's cervical primary. Blood work today shows normal LDH with mildly elevated CEA level. CT chest with contrast did not show any suspicious lesions. Interval History Interval history: Patient is here in follow-up. She is here to discuss results of a PET scan. She also received 1st cycle of chemotherapy and says that she had moderately severe diarrhea the 1st few days. She was taking Imodium as prescribed. She is feeling better now. She denies any significant weight loss but she says she had a lot of pain in her abdomen. She is requesting increase in her pain medications. She denies any fever or chills. Review of Systems - Constitutional Reports as per HPI, Denies fatigue, Denies poor appetite, Denies weight loss - Cardiovascular Reports no additional cardiovascular complaints - Respiratory Reports no additional respiratory complaints - Gastrointestinal Reports no additional gastrointestinal complaints [facility] Medical History: Medical History (Last Reviewed 04/27/22 @ 14:32 by Loly Johnson) Back pain Cervical cancer Opiate abuse, episodic Osteoarthritis of both knees Osteopenia determined by x-ray Primary osteoarthritis of knees, bilateral Seropositive rheumatoid arthritis Family History: Family History (Last Reviewed 04/27/22 @ 14:32 by Loly Johnson) Father Acute CVA (cerebrovascular accident) Mother Hypertension Hypercholesterolemia Brother Liver transplant status Family history of thyroid problem Surgical History: Surgical History (Last Reviewed 04/27/22 @ 14:32 by Loly Johnson) History of appendectomy History of cholecystectomy History of D&C History of tonsillectomy Social History: Social History (Last Reviewed 04/27/22 @ 14:33 by Loly Johnson) Living Situation History: Household Members: Children Housing: House Are you a primary manager home healthcare to a significant other at home: Yes Are you a primary manager home healthcare to a significant other at home comment: mom Do you presently have visiting nurse or other home services: No Alcohol History Details: 1. How often do you have a drink containing alcohol?: a. Never Tobacco History: Patient Tobacco Use Status: Former Tobacco user Tobacco use type: Cigarette Smoke Quit Date: 2016 e-Cigarette/Vaping Use: Never Used Second Hand Smoke Exposure: No Substance Use History: Use of substances other than those prescribed or required for medical reasons: No Domestic Abuse History: Have you been hit, kicked, punched, or otherwise hurt by someone within the past year? 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 Medications and Allergies Allergies Allergy/AdvReac Type Severity Reaction Status Date / Time buprenorphine [Belbuca] Allergy Intermediate nausea Verified 04/04/22 16:03 Exam Vital signs: Vital Signs Temp 97.4 F 04/20/22 13:52 Pulse 78 04/20/22 13:52 Resp 16 04/20/22 13:52 BP 128/66 04/20/22 13:52 Pulse Ox 95 04/20/22 13:52 O2 Del Method 04/20/22 13:52 Weight 63.8 kg BMI result Body Mass Index 23.3 - Constitutional Present: no acute distress - Routine HEENT Exam Head: Present: normal inspection - Routine Neck Exam Present: full ROM. Absent: lymphadenopathy - Routine Respiratory Exam Present: CTAB. Absent: accessory muscle use - Routine Cardiovascular Exam Cardiovascular: Present: S1, S2 - Routine Abdominal Exam Present: soft - Routine Extremities Exam Present: normal inspection - Routine Skin Exam Present: intact. Absent: cyanosis - Routine Neurological Exam Present: alert, oriented X3 Data - Labs CBC & Chem 7: 04/27/22 14:04 04/27/22 14:04 Assessment and Plan Patient Active problem list reviewed?: Yes (1) Adrenal mass greater than 4 cm in diameter Status: Acute Assessment and plan: 1. This is a 67-year-old woman with metastatic cervical cancer, poorly differentiated squamous cell carcinoma diagnosed 03/08/2022. CT abdomen/ pelvis performed 02/21 revealed a 6.2 x 5.3 cm mass in the right adrenal gland extending into retrocaval space and retroperitoneum. IVC is inseparable from this mass likely invaded. Enlarged left inguinal lymph node, enlarged periportal and upper retroperitoneal lymph nodes measuring up to 0.9 cm. Trace amount of ascites in the right paracolic gutter. She underwent right adrenal mass core biopsy on 03/08/2022 which revealed metastatic squamous cell carcinoma, moderate to poorly differentiated involving fibrous soft tissue. Findings likely represent a metastasis from patient's cervical primary. CT chest with contrast did not show any suspicious lesions. She was seen at [facility], she has not been recommended any surgery or upfront radiation therapy for pain control. She was recommended carboplatin/Taxol with Keytruda for metastatic cervical cancer. Negative RET and NTRK fusion mutations. PDL1 expression, CPS score 100%. She started palliative chemotherapy with carboplatin, Taxol and Keytruda. She tolerated the 1st cycle fairly well with some diarrhea that is resolving. PET-CT performed 04/10/2021 however showed focus of abnormal FDG activity associated with soft tissue density in the mid esophagus with SUV 7.6 measuring 6.2 cm which was suspicious for primary tumor. She had other areas of FDG activity in the supraclavicular lymph node, right adrenal mass with SUV 12.1 right para-aortic lymph node SUV 9 and several additional smaller lymph nodes with FDG activity. No FDG activity in the uterus or pelvic organs. I have discussed above findings with patient. She is being arranged for an urgent endoscopy/biopsy of esophageal mass. 2. For pain control she is on oxycodone 4 mg every 4 hours as needed and MS Contin 30 mg every 12 hours. She has longstanding issues of pain and was on narcotics previously for arthritic pain. She understands terms of pain contract, she will stay on the dose she has been prescribed and not seek narcotic pain medications from different providers. Follow up in 4 weeks - Time Spent With Patient Time Spent with Patient (in minutes): 20
[2022-04-27 14:33] LABS: Alanine Aminotransferase 12 U/L (0-31); Albumin Level 3.6 g/dL (3.5-5.0); Alkaline Phosphatase 295 U/L (39-117); Anion Gap 13 (12-20); Aspartate Amino Transferase 17 U/L (5-31); Bilirubin Total 0.4 mg/dL (0.0-1.0); Blood Urea Nitrogen 9 mg/dL (9-16); Calcium 8.3 mg/dL (8.4-10.2); Carbon Dioxide 28 mmol/L (22-29); Chloride 105 mmol/L (96-108); Creatinine Clr Calc Pharmacy 65.5; Estimated Glomerular Filt Rate > 60; Glucose Random 97 mg/dL (60-115); Potassium 3.9 mmol/L (3.3-5.1); Sodium 142 mmol/L (135-145); Total Protein 6.3 g/dL (6.5-8.0)
--- NOTE | 2022-04-27 14:48 | MHC.HEMONC ---
Pt here for lab draw-blood drawn by parts counterperson-specimen to lab-results reviewed by Dr Durbin-plan for pt to take OTC calcium bid-pt instructions given for calcium, instructed to call Dr Ruby's office for endoscopy appointment and call ONcology office with appointment once she gets one.
[2022-04-27 15:03] LABS: Appearance Urine Cloudy; Glucose Urine UA Negative (Negative); Leukocyte Esterase Urine Moderate (2+) (Negative); Nitrite Urine Negative (Negative); Specific Gravity - Urine 1.015 (1.005-1.025); UMIC TRIGGER UA YES; Urine Blood Large (3+) (Negative); Urine Ketones Negative (Negative); Urine Protein 100 (2+) mg/dL (Neg-Trace)
[2022-04-27 15:05] LABS: Color Urine Dark Yellow
[2022-04-27 15:06] LABS: Bacteria Urine None Seen (None Seen); Hyaline Casts Urine 0-2 /LPF (0-2); RBC Urine >20 /HPF (0-2); Squamous Epithelial Cell Urine 0-2 /HPF (0-2); WBC Urine >50 /HPF (0-5)
--- NOTE | 2022-05-01 11:06 | MHC.HEMONC ---
I called Dr Ruby's office to f/u on pt appt for endoscopy. They told me that pt was unable to make the appt they offered last as she had appts at [place] . Now Dr Ruby is on vacation and they will try to get her in after that if they get a cancelation. I have informed Dr Durbin.
--- NOTE | 2022-05-01 11:19 | MHC.HEMONC ---
PT1 form submitted as pt has no reliable transportation for appts.
[2022-05-02 13:56] LABS: MANUAL DIFF FLAG NO
[2022-05-02 14:01] LABS: Basophils Absolute Auto 0.1 X10*3/uL (0.0-0.2); Basophils Percent Auto 1.2 % (0-2); Eosinophils Absolute Auto 0.1 X10*3/uL (0.0-0.4); Hematocrit 32.1 % (37.0-47.0); Hemoglobin 10.3 g/dl (12.0-16.0); Imm Gran Abs Auto 0.03 X10*3/uL (0.00-0.03); Imm Gran Pct Auto 0.4 % (0.0-0.4); Lymphocytes Percent Auto 14.3 % (20-40); Mean Corpuscular HGB Conc 32.1 g/dl (31.0-35.0); Mean Corpuscular Hemoglobin 25.4 pg (27.0-33.0); Mean Corpuscular Volume 79.1 fL (80.0-98.0); Mean Platelet Volume 8.8 fL (9.4-12.3); Monocytes Absolute Auto 0.7 X10*3/uL (0.1-1.2); Monocytes Percent Auto 9.6 % (2-11); Neutrophils Absolute Auto 5.3 x10*3/uL (2.0-8.3); Neutrophils Percent Auto 73.5 % (45-73); Platelet Count 470 X10*3/uL (160-400); Red Blood Count 4.06 X10*6/uL (4.20-5.50); Red Cell Distribution Width 15.2 % (11.0-16.0); White Blood Count 7.2 X10*3/uL (4.8-10.8)
[2022-05-02 14:16] LABS: Alanine Aminotransferase 15 U/L (0-31); Albumin Level 3.8 g/dL (3.5-5.0); Alkaline Phosphatase 330 U/L (39-117); Anion Gap 11 (12-20); Aspartate Amino Transferase 17 U/L (5-31); Bilirubin Total 0.4 mg/dL (0.0-1.0); Blood Urea Nitrogen 10 mg/dL (9-16); Calcium 8.9 mg/dL (8.4-10.2); Carbon Dioxide 30 mmol/L (22-29); Chloride 103 mmol/L (96-108); Creatinine Clr Calc Pharmacy 62.3; Estimated Glomerular Filt Rate > 60; Glucose Random 112 mg/dL (60-115); Potassium 4.3 mmol/L (3.3-5.1); Sodium 140 mmol/L (135-145); Total Protein 6.7 g/dL (6.5-8.0)
--- NOTE | 2022-05-03 11:28 | HO.HEMONCSCH ---
Pt called, said she was was able to get appt for endoscopy w/ Dr. Ruby's office for this Mon, 05/07, was uncertain if Dr. Durbin still wants her to come in for chemo tomorrow, 05/04. Nurse confirmed w/ BHANU Salcido that Dr. Durbin does want pt to come in for tomorrow's tx. Pt asked about her transportation from [facility] shuttle, but said she would call herself to confirm.
[2022-05-04 08:44] VITALS: BP 137/63; PULSE 83; RESP 16; TEMP 37.2; O2SAT 98
[2022-05-04 08:45] VITALS: BMI 23.1
[2022-05-04] MEDS: Famotidine/PF 20 MG/2 ML VIAL IVPUSH (09:38)
[2022-05-04] MEDS: Acetaminophen 325 MG TABLET 650 MG PO (09:38)
[2022-05-04] MEDS: dexAMETHasone sod phosphate 12 MG in 0.9 % Sodium Chloride 50 ML 212 MG IV (09:39)
[2022-05-04] MEDS: diphenhydrAMINE HCL 50 MG/ML VIAL 25 MG IVPUSH (09:39)
--- NOTE | 2022-05-04 15:36 | MHC.HEMONC ---
C2:Pembro -(holding carbo/paclitaxel/avastin per Dr. Durbin. Patient is scheduled to see Dr. Ruby Sunday 05/07 at 1020am and needs EGD with biopsy before starting Avastin. Labs reviewed from 05/02. Patient states she feels well today. She experienced some nausea with minimal vomiting third day post chemotherapy of first cycle. #22 angio placed to right upper arm-with positive blood return. Pre-medicated with Tylenol, Dexamethasone 12mg IV, Benadryl 25mg IV, and Pepcid 20mg IV. Pembro infusion well tolerated. IV removed. Discharge packet provided. Patient instructed to call office with date and time of EGD procedure and explained the importance of attending follow up with GI.
--- NOTE | 2022-05-08 10:30 | MHC.HEMONC ---
I called pt and spoke to her. Pt PT1 approved and pt has number to call for medical appt transportation. Pt did see GI yesterday and Dr Ruby is doing endoscope and bx on 05/15/22 at 10:20 am.
--- NOTE | 2022-05-22 09:16 | MHC.HEMONC ---
Addendum entered by Evette Del Real RN 05/22/22 09:42: Per Dr Durbin-pt called and informed recent biopsy revealed no cancer. Plan is to continue with chemotherapy. Next chemo appointment scheduled for 05/25/22-pt aware. Transportation services called to arrange transportation. Original Note: Triage call-pt called to request refills on oxycodone and morphine. Pt also requesting results of biopsy performed on 05/15/22-questioning what next step is now. Message left with Dr Durbin to refill scripts and address pt's concern about biopsy results
--- NOTE | 2022-05-25 11:28 | MHC.HEMONC ---
Patient called to cancel chemotherapy today. She stated, I don't' feel well and feel weak Patient reports diarrhea however only using Imodium intermittently. Offered to have patient come in for labs and possible hydration and hold chemotherapy. Patient declined. 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 Patient verbalizes understanding. Encourage patient to increase fluid intake and if possible drink beverages with electrolytes such as Gatorade or Pedialyte. Chemotherapy to be postponed to Saturday05/28/22. Pharmacy notified.
--- NOTE | 2022-05-28 08:46 | MHC.HEMONC ---
Pt called this morning and spoke with me. She said she was canceling her chemo appt for today. When I inquired she told me I don't feel well . I asked her about her sx and she said I have nausea and diarrhea. I'm taking Immodium and pills in silver packet and they help for a little while . She was in ER late last week with same sx and was sent home. She said her appetite is very low. She denies fever. She has no increase in baseline pain sx. I asked her to at least come in to see Dr Durbin and get some hydration but she refused for today. She will come in tomorrow at 11:[address] Durbin. I advised Skip Lara RN.
--- NOTE | 2022-05-31 09:39 | MHC.HEMONC ---
Nurse listened to two VMs from pt on triage line, wherein she stated first that she was bleeding heavily from her urinary place , was very frightened, wanted to know if she should go to the ER. In pt's next VM, she stated that she had been to the ED, but they sent me home , and she wants help to be admitted to the hospital. This nurse called pt at home, no answer, called pt's cell, no answer, left detailed message asking the pt to call back and assuring her that we would advocate her to be sure she is taken care of. Nurse checked ER note from [facility], provider wrote that pt was transferred to a Dr. Falk at [facility] ED. Nurse called [facility] ED, was informed that pt was actually admitted to [facility], currently inpatient on [address]. Nurse spoke to alumnae secretary on [address], they confirmed pt is there, asked her to let pt know that we received her messages, we know where she is, and to please call us when she comes home.
[2022-06-05 15:53] VITALS: BP 124/75; PULSE 73; RESP 15; TEMP 36.2; O2SAT 97; BMI 22.6
--- NOTE | 2022-06-05 16:00 | PM.HEMONCPN ---
Medical Summary - Medical Summary Date of Service: 06/06/22 Chief complaint: Follow-up Primary Care Provider: Dean Villalba MD Medical Summary: Diagnosis: poorly differentiated squamous cell carcinom, metastatic cervical cancer, 02/2022 History of stage IIIB squamous carcinoma of cervix, treated by Dr. Post at [facility]. She received cisplatin from 11/15/2016 to 12/20/2016, external beam radiation therapy from 11/15/2016 to 2016. Vaginal brachytherapy 12/31/2016 and 01/07/2017 at [facility]. Presented with right flank pain and found to have large adrenal mass suspicious for carcinoma. CT abdomen/ pelvis performed 02/21 with IV contrast revealed a 6.2 x 5.3 cm mass in the right adrenal gland extending into retrocaval space and retroperitoneum. IVC is inseparable from this mass likely invaded. Enlarged left inguinal lymph node, enlarged periportal and upper retroperitoneal lymph nodes measuring up to 0.9 cm. Trace amount of ascites in the right paracolic gutter. 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 She had extensive endocrine workup, she was ruled out for pheochromocytoma. She underwent right adrenal smith core biopsy on 03/08/2022 which revealed metastatic squamous cell carcinoma, moderate to poorly differentiated involving fibrous soft tissue. Findings likely represent a metastasis from patient's cervical primary. Blood work today shows normal LDH with mildly elevated CEA level. CT chest with contrast did not show any suspicious lesions. She underwent right adrenal mass core biopsy on 03/08/2022 which revealed metastatic squamous cell carcinoma, moderate to poorly differentiated involving fibrous soft tissue. Findings likely represent a metastasis from patient's cervical primary. CT chest with contrast did not show any suspicious lesions. She was seen at [facility], she has not been recommended any surgery or upfront radiation therapy for pain control. She was recommended carboplatin/Taxol with Keytruda for metastatic cervical cancer. Interval History Interval history: Patient is here in follow-up. unfortunately, patient was admitted the hospital for vaginal bleeding. She reports generalized weakness. She received 2 units blood transfusion and had vaginal packing done. She also reports urinary problems although she was not diagnosed with UTI during the hospitalization. 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 She would like to defer any chemotherapy until then. She denies any fever or chills. At this time she denies any abdominal pain or diarrhea, no nausea or emesis. She had undergone EGD two weeks back and this was negative for any tumor. Review of Systems - Constitutional Reports as per HPI, Reports lack of energy, Reports malaise, Reports weight loss - Cardiovascular Reports no additional cardiovascular complaints - Respiratory Reports no additional respiratory complaints - Gastrointestinal Reports no additional gastrointestinal complaints [facility] Medical History: Medical History (Last Reviewed 06/05/22 @ 15:55 by Loly Johnson) Back pain Cervical cancer Opiate abuse, episodic Osteoarthritis of both knees Osteopenia determined by x-ray Primary osteoarthritis of knees, bilateral Seropositive rheumatoid arthritis Family History: Family History (Last Reviewed 06/05/22 @ 15:55 by Loly Johnson) Father Acute CVA (cerebrovascular accident) Mother Hypertension Hypercholesterolemia Brother Liver transplant status Family history of thyroid problem Surgical History: Surgical History (Last Reviewed 06/05/22 @ 15:55 by Loly Johnson) History of appendectomy History of cholecystectomy History of D&C History of tonsillectomy Social History: Social History (Last Reviewed 06/05/22 @ 15:55 by Loly Johnson) Living Situation History: Household Members: Children Housing: House Are you a primary health care facilities inspector to a significant other at home: Yes Are you a primary health care facilities inspector to a significant other at home comment: mom Do you presently have visiting nurse or other home services: No Alcohol History Details: 1. How often do you have a drink containing alcohol?: a. Never Tobacco History: Patient Tobacco Use Status: Former Tobacco user Tobacco use type: Cigarette Smoke Quit Date: 2016 e-Cigarette/Vaping Use: Never Used Second Hand Smoke Exposure: No Substance Use History: Use of substances other than those prescribed or required for medical reasons: No Domestic Abuse History: Have you been hit, kicked, punched, or otherwise hurt by someone within the past year? 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 Oncology Screenings - ECOG Performance Status ECOG Performance Status: 1 Home Medications and Allergies Allergies Allergy/AdvReac Type Severity Reaction Status Date / Time buprenorphine [Belbuca] Allergy Intermediate nausea Verified 05/23/22 14:55 Exam Vital signs: Vital Signs Temp 97.2 F 06/05/22 15:53 Pulse 73 06/05/22 15:53 Resp 15 06/05/22 15:53 BP 124/75 06/05/22 15:53 Pulse Ox 97 06/05/22 15:53 O2 Del Method Room Air 06/05/22 15:53 Intake & Output 06/04/22 06/05/22 06/05/22 18:59 06:59 18:59 Other: Weight 61.6 kg Weight in Grams 89310 Weight 61.6 kg BMI result Body Mass Index 22.6 - Constitutional Present: no acute distress - Routine HEENT Exam Head: Present: normal inspection - Routine Neck Exam Present: full ROM. Absent: lymphadenopathy - Routine Respiratory Exam Present: CTAB. Absent: accessory muscle use - Routine Cardiovascular Exam Cardiovascular: Present: S1, S2 - Routine Abdominal Exam Present: soft - Routine Extremities Exam Present: normal inspection - Routine Skin Exam Present: intact. Absent: cyanosis - Routine Neurological Exam Present: alert, oriented X3 Data - Labs CBC & Chem 7: 05/02/22 13:54 05/02/22 13:54 Assessment and Plan Patient Active problem list reviewed?: Yes (1) Adrenal mass greater than 4 cm in diameter Status: Chronic Assessment and plan: 1. This is a 67-year-old woman with metastatic cervical cancer, poorly differentiated squamous cell carcinoma diagnosed 03/08/2022. CT abdomen/ pelvis performed 02/21 revealed a 6.2 x 5.3 cm mass in the right adrenal gland extending into retrocaval space and retroperitoneum. IVC is inseparable from this mass likely invaded. Enlarged left inguinal lymph node, enlarged periportal and upper retroperitoneal lymph nodes measuring up to 0.9 cm. Trace amount of ascites in the right paracolic gutter. Negative RET and NTRK fusion mutations. PDL1 expression, CPS score 100%. She started palliative chemotherapy with carboplatin, Taxol and Keytruda. PET-CT performed 04/10/2021 however showed focus of abnormal FDG activity associated with soft tissue density in the mid esophagus with SUV 7.6 measuring 6.2 cm which was suspicious for primary tumor. She had other areas of FDG activity in the supraclavicular lymph node, right adrenal mass with SUV 12.1 right para-aortic lymph node SUV 9 and several additional smaller lymph nodes with FDG activity. No FDG activity in the uterus or pelvic organs. Patient underwent EGD on 05/15/2022 which did not show any esophageal tumor. Random biopsies obtained from mid esophagus was negative for malignancy. Unfortunately, patient presented with vaginal bleeding on 05/30/2022. CT abdomen/pelvis with IV contrast performed the same day revealed mild wall thickening of posterior wall of bladder which was abutting anterior vaginal wall. Bladder mass could not be excluded. She was hospitalized at [facility], she refused ui ux developer exam but underwent vaginal packing and total of 2 units PRBC transfusion. She does need a complete gynecological/pelvic examination including possibly a cystoscopy. I will speak with Dr. Newton at [facility] and coordinate her care. Her chemotherapy is on hold for now. Patient has had significant shrinkage of tumor with 2 cycles of chemotherapy. 2. For pain control she is on oxycodone 4 mg every 4 hours as needed and MS Contin 30 mg every 12 hours. She has longstanding issues of pain and was on narcotics previously for arthritic pain. She understands terms of pain contract, she will stay on the dose she has been prescribed and not seek narcotic pain medications from different providers. Follow up in 2 weeks - Time Spent With Patient Time Spent with Patient (in minutes): 30
--- NOTE | 2022-06-06 07:50 | MHC.HEMONCMA ---
Patient seen on 06/05/22 for followup cervix CA, VSS, 4-7 week for followup.
--- NOTE | 2022-06-06 16:29 | MHC.HEMONC ---
Telephone call to pt to schedule chemo to restart. Spoke with daughter, and Evelyn is scheduled for Sunday 06/11 at 0830. Daughter will have pt call to confirm.
--- NOTE | 2022-06-07 08:56 | MHC.HEMONCSW ---
Addendum entered by Patti Saenz 06/07/22 09:26: Dina spoke with [employer] who inquired as to whether Pt rents or owns as they provide housing assist to owners, but could provide assistance for this if Pt. is a renter. The program is called RAFT and the process was outlined, which occurs on the internet only, [employer]. They have advocates to help, but the Pt must be the one to fill out the application. They have another agency, [employer] which could help as well. They do speak occitan. Addendum entered by Patti Saenz 06/07/22 09:06: DINA then researched other possible avenues and [employer], and attempted to reach them by numerous times, often remaining on hold for many minutes. DINA also called Pt's home and cell #s and was unable to reach her or leave a message. Original Note: This SW received information this morning that Pt's water had been shut off.Call made to [employer] which indicated that they had received no payment since 12/28/20and that further there had been no f/u to their attempts to spek with Ms. Marin since that time. They suggested strongly that Pt call their office today to discuss options.DINA was also provided the name of the [employer] organization for possible financial assistance.
--- NOTE | 2022-06-07 14:21 | MHC.HEMONC ---
Attempted to call pt to confirm her chemo scheduled for Sunday 06/11, but no answer. Unable to leave message as mailbox is full.
--- NOTE | 2022-06-08 11:07 | MHC.HEMONC ---
Attempted to call pt, but no answer and unable to leave message as mailbox is full. Call placed to son Kevin and message left.
--- NOTE | 2022-06-08 14:05 | MHC.HEMONCSW ---
SW attempted to reach both Pt and her son by to discuss the water shut off and provide options _ no answer from either and no voicemail picked up.
--- NOTE | 2022-06-08 17:03 | MHC.HEMONC ---
Pt called checking on when her refills for morphine and oxycodone were due. Pt states she got the message from this writer producer regarding restarting chemotherapy on Sunday 06/11. She states she is supposed to have appointment with Dr Newton prior to starting chemo. She states she does not have an appointment scheduled yet, but will call. She also states she will be seeing Dr Durbin prior to starting back on chemo. That appointment is scheduled for 06/20. Chemo appointment for Saturday will be canceled at this time.
--- NOTE | 2022-06-11 08:35 | MHC.HEMONCSW ---
Addendum entered by Patti Saenz 06/11/22 15:30: SW attempted to reach Pt again, mailbox remains full. Original Note: SW attempted yet again to reach Pt to provide information re her water being shut off, but no answer and mailbox full.
--- NOTE | 2022-06-11 12:08 | MHC.HEMONC ---
I left voice message on pt phone as well as her son's to call us back. MRI is trying to set up pelvic MRI for her and Nurses need to discuss chemo schedule with her. LAUREN Armstrong is also trying to reach out to her regarding a complaint she had about no water in her home.
--- NOTE | 2022-06-11 16:52 | MHC.HEMONC ---
Nurse was able to reach pt on her cell phone, pt recounted the struggles she has had over the past weeks, including her vaginal bleed which led to transfer from [facility] to [facility] 2 weeks ago and her admission to [facility]. Pt elaborated about all the severe pain, nausea/vomiting, and vaginal bleeding she'd been experiencing. Nurse asked her to clarify how those symptoms have been now, pt did concede that her pain is mostly well-managed by the PRN oxycodone and MS contin. Pt explained that these symptoms are the reason she does not feel like she can manage having her chemo tx right now. Nurse told pt that Dr. Durbin was very clear after speaking w/ her provider, Dr. Newton, that they feel the best course of action for her at this time is to resume her tx, and her symptoms will not angela otherwise. Pt, however, stated that, by her perspective, her symptoms have been improved since stopping tx and were worse when she received the tx, and she wants to take a break. Unfortunately, Dr. Durbin if off this week, but this nurse will confer w/ Nurse Tyler Concepcion about pt's concerns. Nurse also notified pt that Dr. Cortez had sent her new scrip for PRN oxycodone to her [facility], which she said she had picked up. This nurse to call pt back tomorrow to discuss next steps. Nurse canceled today's chemo appt. At the very least, pt has Onc f./u appt booked w/ Dr. Durbin for next week.
--- NOTE | 2022-06-12 16:58 | MHC.HEMONC ---
Nurse left for pt, telling her that Dr. Durbin still recommends she resume her tx w/ all three drugs, and that our clinic could help to liability claims manager her side effects or symptoms as they present. However, nurse mentioned in VM, if she still feels she wishes to take a break , she should definitely attend her upcoming Onc f/u appt w/ Dr. Durbin, sched for next 06/20/22 at 16:00. Nurse left CB#.
--- NOTE | 2022-06-14 08:15 | MHC.HEMONCSW ---
SW spoke with Pt /3 at 4:30 - SW attempted to explain the process to get her water turned back on. She presented as very disturbed at being told that she needed to make another ph call, She indicated that all she does all day is make ph calls and it is too much. SW inquired if she could get someone to assist her in this matter, and she stated that she is the one who has to help everyone else. SW let her know that I was sorry she was having such a difficult time, but that i hoped she would be able to make that call.
--- NOTE | 2022-06-14 16:11 | MHC.HEMONC ---
Triage call-pt called department requesting higher dose of MS Contin. States she is in pain, is bleeding 2 cups of blood a day at times with clots, states she feels weak and fatigued. Instructed to go to ED if she continues to bleed and feel fatigued. Pt states bleeding is not consistently heavy. Pt reminded she has pain contract with Dr Durbin stating she would not request additional pain medications from other providers per last dictated provider note. Pt verbalizes understanding of information given. Requesting a letter to [employer] to confirm she is 67 years old with cancer. States she never should have had her water shut off. Furn[employer] notified. Awaiting MRI appointment secondary to pt not calling to schedule appointment. Pt instructed to call MRI to schedule appointment sobia (appointment scheduled for MRI for 07/05/22 at 1600.) Pt encouraged to attend appointment-verbalizes understanding. Pt reminded of follow up with Dr Durbin on Saturday06/20/22
--- NOTE | 2022-06-18 13:51 | MHC.HEMONC ---
I called pt and spoke to her after calling [facility] at [facility] - office of Dr Newton and learned that Evelyn was a no show for her f/u with Dr Newton last Saturday. When I spoke with her she said she wasn't aware of the appointment. I told her to call them back and provided the number to her. Evelyn is aware that she is seeing Dr Durbin and receiving hydration this Saturday afternoon per her conversation with RN, Jane. She is getting a ride from her sister or else her son. She mentioned wanting more pain medication and an increase as well. She said she is losing more weight. I told her we will evaluate these sx on Saturday.
--- NOTE | 2022-06-18 14:44 | MHC.HEMONC ---
Triage call: Patient called stating she would like IV hydration with next appt with Dr. Durbin. Patient will come Saturday between 1-2pm for hydration, labs and follow up with Dr. Durbin. Patient requested increase in pain in medications but explained that this will be addressed on Saturday. Patient states she will arrange transportation for Saturday. She has not seen Dr. Newton at [facility]- she no showed last appt on 06/13. Patient will call to make appt with Dr. Newton. Carlene Cruzator also spoke to patient over phone. Dr. Durbin updated.
--- NOTE | 2022-06-19 10:47 | MHC.HEMONC ---
Triage call-pt called requesting an additinal day of IV hydration today-Dr Durbin notified. Appointment scheduled for today at 1400-pt aware
--- NOTE | 2022-06-19 11:06 | MHC.HEMONC ---
Triage call-pt called requesting refill on oxycodone-states it was due to be refilled 2 days ago and was not refilled. Requesting increase in the amount of medication because she is running out of medication before month is over. Dr Durbin notified.
[2022-06-19] MEDS: 0.9 % Sodium Chloride 1,000 ML 999 ML IV (14:36)
[2022-06-19 14:38] VITALS: BP 137/65; PULSE 79; RESP 17; TEMP 37.2; O2SAT 96
[2022-06-19 14:42] LABS: MANUAL DIFF FLAG NO
[2022-06-19 14:45] LABS: Basophils Absolute Auto 0.1 X10*3/uL (0.0-0.2); Eosinophils Absolute Auto 0.1 X10*3/uL (0.0-0.4); Eosinophils Percent Auto 1.7 % (0-4); Hematocrit 41.5 % (37.0-47.0); Hemoglobin 13.3 g/dl (12.0-16.0); Imm Gran Abs Auto 0.02 X10*3/uL (0.00-0.03); Imm Gran Pct Auto 0.2 % (0.0-0.4); Lymphocytes Absolute Auto 1.6 X10*3/uL (1.2-4.9); Lymphocytes Percent Auto 19.3 % (20-40); Mean Corpuscular Hemoglobin 25.5 pg (27.0-33.0); Mean Corpuscular Volume 79.7 fL (80.0-98.0); Mean Platelet Volume 8.9 fL (9.4-12.3); Monocytes Absolute Auto 0.7 X10*3/uL (0.1-1.2); Monocytes Percent Auto 8.7 % (2-11); Neutrophils Absolute Auto 5.6 x10*3/uL (2.0-8.3); Neutrophils Percent Auto 69.1 % (45-73); Platelet Count 435 X10*3/uL (160-400); Red Blood Count 5.21 X10*6/uL (4.20-5.50); Red Cell Distribution Width 15.7 % (11.0-16.0); White Blood Count 8.1 X10*3/uL (4.8-10.8)
[2022-06-19 15:08] LABS: Alanine Aminotransferase 14 U/L (0-31); Albumin Level 3.8 g/dL (3.5-5.0); Alkaline Phosphatase 148 U/L (39-117); Anion Gap 13 (12-20); Aspartate Amino Transferase 25 U/L (5-31); Bilirubin Total 0.4 mg/dL (0.0-1.0); Blood Urea Nitrogen 13 mg/dL (9-16); Calcium 9.2 mg/dL (8.4-10.2); Carbon Dioxide 26 mmol/L (22-29); Chloride 107 mmol/L (96-108); Estimated Glomerular Filt Rate > 60; Glucose Random 92 mg/dL (60-115); Sodium 142 mmol/L (135-145); Total Protein 7.2 g/dL (6.5-8.0)
--- NOTE | 2022-06-19 15:23 | MHC.HEMONC ---
Called [facility] and spoke to Pharmacist re: oxycodone script at Dr Durbin's request. Pharmacist stated that 60 tablets were dispensed on 06/11 and that should last 15 days. The next oxycodone script will be available to vegetable picker on 06/26/2022.
[2022-06-19 15:25] LABS: Carcinoembryonic Antigen < 1.73 ng/mL
[2022-06-19 16:11] LABS: Appearance Urine Clear; Color Urine Yellow; Glucose Urine UA Negative (Negative); Leukocyte Esterase Urine Small (1+) (Negative); Nitrite Urine Negative (Negative); PH 5.5 (5.0-9.0); UMIC TRIGGER UA YES; Urine Blood Negative (Negative); Urine Ketones Negative (Negative); Urine Protein Negative (Neg-Trace)
--- NOTE | 2022-06-19 16:12 | MHC.HEMONC ---
Addendum entered by Joyce Champagne RN 06/19/22 17:13: PT scheduled for scans on 07/05/22, follow up 07/06/22 and chemo on 07/11/22. Pt aware and has calendar. Original Note: Pt here for hydration. Labs drawn and urine obtained and sent. Pt reports not eating or drinking well. Color pale skin warm and dry. VSS. IV was started #22 right lower arm and !000ml NS infusing over 2 hours. Pt given meal tray and po fluids. Pt ate 80 % of meal. Toll well. Pt seen by DR Durbin follow up today. appointment for tomorrow d/c'd. Pt was on schedule to return for hydration tomorrow but pt declined stating that she doesn't need it. IV removed no redness or swelling at site. Summary given and Pt departed.
[2022-06-19 16:24] LABS: Bacteria Urine None Seen (None Seen); Hyaline Casts Urine 0-2 /LPF (0-2); RBC Urine 0-2 /HPF (0-2); Squamous Epithelial Cell Urine 0-2 /HPF (0-2); WBC Urine 0-5 /HPF (0-5)
--- NOTE | 2022-06-19 16:59 | P.PNHO-ONC_ITS ---
Medical Summary - Medical Summary Date of Service: 06/20/22 Chief complaint: Weakness Primary Care Provider: Dean Villalba MD Medical Summary: Diagnosis: poorly differentiated squamous cell carcinom, metastatic cervical cancer, 02/2022 History of stage IIIB squamous carcinoma of cervix, treated by Dr. Post at [facility]. She received cisplatin from 11/15/2016 to 12/20/2016, external beam radiation therapy from 11/15/2016 to 2016. Vaginal brachytherapy 12/31/2016 and 01/07/2017 at [facility]. Presented with right flank pain and found to have large adrenal mass suspicious for carcinoma. CT abdomen/ pelvis performed 02/21 with IV contrast revealed a 6.2 x 5.3 cm mass in the right adrenal gland extending into retrocaval space and retroperitoneum. IVC is inseparable from this mass likely invaded. Enlarged left inguinal lymph node, enlarged periportal and upper retroperitoneal lymph nodes measuring up to 0.9 cm. Trace amount of ascites in the right paracolic gutter. 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 She had extensive endocrine workup, she was ruled out for pheochromocytoma. She underwent right adrenal smith core biopsy on 03/08/2022 which revealed metastatic squamous cell carcinoma, moderate to poorly differentiated involving fibrous soft tissue. Findings likely represent a metastasis from patient's cervical primary. Blood work today shows normal LDH with mildly elevated CEA level. CT chest with contrast did not show any suspicious lesions. She underwent right adrenal mass core biopsy on 03/08/2022 which revealed metastatic squamous cell carcinoma, moderate to poorly differentiated involving fibrous soft tissue. Findings likely represent a metastasis from patient's cervical primary. CT chest with contrast did not show any suspicious lesions. She was seen at [facility], she has not been recommended any surgery or upfront radiation therapy for pain control. She was recommended carboplatin/Taxol with Keytruda for metastatic cervical cancer. PET-CT performed 04/10/2022 however showed focus of abnormal FDG activity associ ated with soft tissue density in the mid esophagus with SUV 7.6 measuring 6.2 cm which was suspicious for primary tumor. She had other areas of FDG activity in the supraclavicular lymph node, right adrenal mass with SUV 12.1 right para- aortic lymph node SUV 9 and several additional smaller lymph nodes with FDG activity. No FDG activity in the uterus or pelvic organs. Patient underwent EGD on 05/15/2022 which did not show any esophageal tumor. Random biopsies obtained from mid esophagus was negative for malignancy. Interval History Interval history: Patient is here in follow-up. Unfortunately, she continues to complain of pain issues and generalized weakness. She has postponed her chemotherapy treatments. She thinks she is bleeding although her medical massage therapist examination and [facility] by Dr. Newton was not really concerning. She is scheduled for MRI of pelvis in a few days, she wants to postpone her treatment until then. Review of Systems - Constitutional Reports lack of energy, Reports malaise, Reports weakness, Reports weight loss - Cardiovascular Denies chest pain at rest, Denies chest pain with activity - Respiratory Denies cough, Denies hemoptysis - Gastrointestinal Denies bloating PMFSH Medical History: Medical History (Last Reviewed 06/05/22 @ 15:55 by Loly Johnson) Back pain Cervical cancer Opiate abuse, episodic Osteoarthritis of both knees Osteopenia determined by x-ray Primary osteoarthritis of knees, bilateral Seropositive rheumatoid arthritis Family History: Family History (Last Reviewed 06/05/22 @ 15:55 by Loly Johnson) Father Acute CVA (cerebrovascular accident) Mother Hypertension Hypercholesterolemia Brother Liver transplant status Family history of thyroid problem Surgical History: Surgical History (Last Reviewed 06/05/22 @ 15:55 by Loly Johsnon) History of appendectomy History of cholecystectomy History of D&C History of tonsillectomy Social History: Social History (Last Reviewed 06/05/22 @ 15:55 by Loly Johnson) Living Situation History: Household Members: Children Housing: House Are you a primary health care manager to a significant other at home: Yes Are you a primary health care manager to a significant other at home comment: mom Do you presently have visiting nurse or other home services: No Alcohol History Details: 1. How often do you have a drink containing alcohol?: a. Never Tobacco History: Patient Tobacco Use Status: Former Tobacco user Tobacco use type: Cigarette Smoke Quit Date: 2016 e-Cigarette/Vaping Use: Never Used Second Hand Smoke Exposure: No Substance Use History: Use of substances other than those prescribed or required for medical reasons : No Domestic Abuse History: Have you been hit, kicked, punched, or otherwise hurt by someone within the past year? 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 Medications and Allergies Allergies Allergy/AdvReac Type Severity Reaction Status Date / Time buprenorphine [Belbuca] Allergy Intermediate nausea Verified 05/23/22 14:55 Exam Vital signs: Vital Signs Temp 99 F 06/19/22 14:38 Pulse 79 06/19/22 14:38 Resp 17 06/19/22 14:38 BP 137/65 06/19/22 14:38 Pulse Ox 96 06/19/22 14:38 O2 Del Method Room Air 06/19/22 14:38 Weight 61.6 kg BMI result Body Mass Index 22.6 - Constitutional Present: no acute distress - Routine HEENT Exam Head: Present: normal inspection - Routine Neck Exam Present: full ROM. Absent: lymphadenopathy - Routine Respiratory Exam Present: CTAB. Absent: accessory muscle use - Routine Cardiovascular Exam Cardiovascular: Present: S1, S2 - Routine Abdominal Exam Present: soft - Routine Extremities Exam Present: normal inspection - Routine Skin Exam Present: intact. 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 This is a 67-year-old woman with metastatic cervical cancer, poorly differentiated squamous cell carcinoma diagnosed 03/08/2022. CT abdomen/ pelvis performed 02/21 revealed a 6.2 x 5.3 cm mass in the right adrenal gland extending into retrocaval space and retroperitoneum. IVC is inseparable from this mass likely invaded. Enlarged left inguinal lymph node, enlarged periportal and upper retroperitoneal lymph nodes measuring up to 0.9 cm. Trace amount of ascites in the right paracolic gutter. Negative RET and NTRK fusion mutations. PDL1 expression, CPS score 100%. She started palliative chemotherapy with carboplatin, Taxol and Keytruda. Unfortunately, patient presented with vaginal bleeding on 05/30/2022. CT abdomen/pelvis with IV contrast performed the same day revealed mild wall thickening of posterior wall of bladder which was abutting anterior vaginal wall. Bladder mass could not be excluded. She was hospitalized at [facility], she refused medical massage therapist exam but underwent vaginal packing and total of 2 units PRBC transfusion. She does need a complete gynecological/pelvic examination including possibly a cystoscopy. I discussed above findings with Dr. Newton. Dr. Newton felt that patient was safe to resume chemotherapy and there was not anything significant on scans and brief examination at [facility]. Her pelvic MRI has been ordered, patient is refusing to receive chemotherapy until her scan is performed. Her chemotherapy is on hold for now. Patient has had significant shrinkage of tumor with 2 cycles of chemotherapy. 2. For pain control she is on oxycodone 4 mg every 4 hours as needed and MS Contin 30 mg every 12 hours. She has longstanding issues of pain and was on narcotics previously for arthritic pain. She understands terms of pain contract, she will stay on the dose she has been prescribed and not seek narcotic pain medications from different providers. Today she was asking for more pain medications, she is not due until at least 18th of this month to get her oxycodone refilled. She was explained that her medication doses will not be increased at this time. Physical examination and blood work today were unremarkable. Follow up in 3 weeks - Time Spent With Patient Time Spent with Patient (in minutes): 15
--- NOTE | 2022-06-21 15:19 | MHC.HEMONCSW ---
Addendum entered by Patti Saenz 06/21/22 16:02: Additional info from [facility]:Gabriella indicated that the family needed to hop picker paperwork to show Financial Hardship, and provide proof of income for everyone in the household. That needs to be returned by tomorrow. I spoke with Juancarlos at the Water Dept. who indicated that they are all good and the water will be back on. I spoke with Ramya at the [employer]. She has spoken with Noa earlier today and they set up a payment plan - Ramya told her that she would present that to the office mgr for approval, but that they need to pay the $50 every month, and if they do, October will be the last payment needed to catch her up to date. I had emailed the Medical form back to the [facility], but when I checked with Gabriella she had not rec'd it yet, so I attempted to resend it. She did say sometimes it can take awhile to get through. Called back to the family attempting to communicate with Noa about the paperwork that needs to be picked up today. Spoke to Evelyn who spoke again about the july process and how long it took and still hasn't been paid, and problems with the bank and her mortgage. Original Note: SW rec'd a call from Pt today about concerns that the gas and electric will be shut off. Spoke with her dtr, Noa who is trying to help her with all these bills. The water is off, and they are concerned about the [place] sewer possibly being shut off as well. She indicated that the july she will be getting doesn't have a date that it will be coming in, so that hasn't helped to alleviate or deter any of these. She wondered if I would provide them with a medical form stating her inability to pay. I let her know I would call all of the Depts and find out specifically what they need and get back to her. Call to the [employer], spoke to Gabriella who indicated that they have a medical form, which she would email to me
--- NOTE | 2022-06-22 08:12 | MHC.HEMONC ---
Triage call: Patient called refill line requesting MS Contin refill. Dr. Gifty araiza.
--- NOTE | 2022-07-06 11:32 | MHC.HEMONC ---
Addendum entered by Vikas Berg RN 07/06/22 11:41: Nurse noted scrip was actually sent to [facility] [address] in [place]. Nurse called pharmacist, they said scrip was too soon to fill, pt needs to call on Mon, 07/09 and ask them to fill. Nurse called pt, notified her, she said it would be no problem to pick it up on [address] Pt also said the vaginal bleeding has continued, but she will be seeing her PCP to discuss urology referral, confirmed appt for chemo and Onc f/u w/ Dr. Durbin next week, 07/11/22. Original Note: Pt called refill line, asked for oxycodone scrip, nurse asked Dr. Durbin to send. Dr. Durbin sent scrip for oxycodone 5 mg PO Q6H [facility] in [place].
--- NOTE | 2022-07-11 14:47 | MHC.HEMONC ---
Patient scheduled for C3D1 Paclitaxel/Carbo/Pembo- no show for todays treatment. Pharmacy notified. Attempted to call patient several times on different listed numbers however no callback. Voicemail left and instructed to please call department to reschedule. Dr. Durbin aware.
--- NOTE | 2022-07-13 17:13 | HO.HEMONCSCH ---
Returned VM to pt. - LVM - f/u appt rescheduled to 07/23/22 at 9:40am.
--- NOTE | 2022-07-18 12:33 | MHC.HEMONC ---
Pt called refill line for refills of oxycodone and morphine. Note left on Loly DRUMMOND desk for Dr Durbin.
--- NOTE | 2022-07-25 09:57 | MHC.HEMONC ---
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 Dr Durbin has requested I do this.
--- NOTE | 2022-07-30 13:38 | MHC.HEMONC ---
Pt called and I returned her call. She said she would want her narcotics reordered later in week but she also wanted to know when her f/u with Dr Durbin is. I had called her a couple times last week but she did not return my call. I told her that Dr Durbin thought she should see Urology due to impression on her pelvic MRI. She agreed to go so I put referral in to office via [employer] Referral processing.
--- NOTE | 2022-08-09 15:13 | PM.HEMONCPN ---
Medical Summary - Medical Summary Date of Service: 08/09/22 Chief complaint: Follow-up Primary Care Provider: Dean Villalba MD Medical Summary: Diagnosis: poorly differentiated squamous cell carcinom, metastatic cervical cancer, 02/2022 History of stage IIIB squamous carcinoma of cervix, treated by Dr. Post at [facility]. She received cisplatin from 11/15/2016 to 12/20/2016, external beam radiation therapy from 11/15/2016 to 2016. Vaginal brachytherapy 12/31/2016 and 01/07/2017 at [facility]. Presented with right flank pain and found to have large adrenal mass suspicious for carcinoma. CT abdomen/ pelvis performed 02/21 with IV contrast revealed a 6.2 x 5.3 cm mass in the right adrenal gland extending into retrocaval space and retroperitoneum. IVC is inseparable from this mass likely invaded. Enlarged left inguinal lymph node, enlarged periportal and upper retroperitoneal lymph nodes measuring up to 0.9 cm. Trace amount of ascites in the right paracolic gutter. 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 She had extensive endocrine workup, she was ruled out for pheochromocytoma. She underwent right adrenal smith core biopsy on 03/08/2022 which revealed metastatic squamous cell carcinoma, moderate to poorly differentiated involving fibrous soft tissue. Findings likely represent a metastasis from patient's cervical primary. Blood work today shows normal LDH with mildly elevated CEA level. CT chest with contrast did not show any suspicious lesions. She underwent right adrenal mass core biopsy on 03/08/2022 which revealed metastatic squamous cell carcinoma, moderate to poorly differentiated involving fibrous soft tissue. Findings likely represent a metastasis from patient's cervical primary. CT chest with contrast did not show any suspicious lesions. She was seen at [facility], she has not been recommended any surgery or upfront radiation therapy for pain control. She was recommended carboplatin/Taxol with Keytruda for metastatic cervical cancer. PET-CT performed 04/10/2022 however showed focus of abnormal FDG activity associated with soft tissue density in the mid esophagus with SUV 7.6 measuring 6.2 cm which was suspicious for primary tumor. She had other areas of FDG activity in the supraclavicular lymph node, right adrenal mass with SUV 12.1 right para-aortic lymph node SUV 9 and several additional smaller lymph nodes with FDG activity. No FDG activity in the uterus or pelvic organs. Patient underwent EGD on 05/15/2022 which did not show any esophageal tumor. Random biopsies obtained from mid esophagus was negative for malignancy. Interval History Interval history: Patient is here in follow-up. Unfortunately, she continues to complain of pain issues and generalized weakness. She has postponed her chemotherapy treatments. She has had intermittent hematuria. She has not yet scheduled her appointment for cystoscopy, she will be seen in consultation by Urology in the middle of August. Review of Systems - Neurologic Reports [facility] Medical History: Medical History (Last Reviewed 08/17/22 @ 13:15 by Alina Collins [facility]) Back pain Cervical cancer Opiate abuse, episodic Osteoarthritis of both knees Osteopenia determined by x-ray Primary osteoarthritis of knees, bilateral Seropositive rheumatoid arthritis Family History: Family History (Last Reviewed 08/17/22 @ 13:15 by Alina Collins CMA) Father Acute CVA (cerebrovascular accident) Mother Hypertension Hypercholesterolemia Brother Liver transplant status Family history of thyroid problem Surgical History: Surgical History (Last Reviewed 08/17/22 @ 13:15 by Alina Collins CMA) History of appendectomy History of cholecystectomy History of D&C History of tonsillectomy Social History: Social History (Last Reviewed 08/17/22 @ 13:15 by Alina Collins CMA) Living Situation History: Household Members: Children Housing: House Are you a primary child care specialist to a significant other at home: Yes Are you a primary child care specialist to a significant other at home comment: mom Do you presently have visiting nurse or other home services: No Tobacco History: Patient Tobacco Use Status: Former Tobacco user Tobacco use type: Cigarette Smoke Quit Date: 2016 e-Cigarette/Vaping Use: Never Used Second Hand Smoke Exposure: No Occupation Assessmet: service: No Current occupational status: employed 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 Medications and Allergies Home Medications Medication Instructions Recorded Confirmed Type omeprazole 20 mg capsule,delayed 20 mg PO DAILY 08/01/22 08/09/22 History release ondansetron 8 mg disintegrating 8 mg PO Q8H PRN nausea 08/15/22 History tablet Allergies Allergy/AdvReac Type Severity Reaction Status Date / Time buprenorphine [Belbuca] Allergy Intermediate nausea Verified 08/17/22 13:14 Exam Vital signs: Vital Signs Temp 99 F 06/19/22 14:38 Pulse 79 04/11/23 14:38 Resp 17 06/19/22 14:38 BP 137/65 06/19/22 14:38 Pulse Ox 96 06/19/22 14:38 O2 Del Method Room Air 06/19/22 14:38 Weight 61.6 kg BMI result Body Mass Index 22.6 - Constitutional Present: no acute distress - Routine HEENT Exam Head: Present: normal inspection - Routine Neck Exam Present: full ROM. Absent: lymphadenopathy - Routine Respiratory Exam Present: CTAB. Absent: accessory muscle use - Routine Cardiovascular Exam Cardiovascular: Present: S1, S2 - Routine Abdominal Exam Present: soft - Routine Extremities Exam Present: normal inspection - Routine Skin Exam Present: intact. 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 This is a 67-year-old woman with metastatic cervical cancer, poorly differentiated squamous cell carcinoma diagnosed 03/08/2022. CT abdomen/ pelvis performed 02/21 revealed a 6.2 x 5.3 cm mass in the right adrenal gland extending into retrocaval space and retroperitoneum. IVC is inseparable from this mass likely invaded. Enlarged left inguinal lymph node, enlarged periportal and upper retroperitoneal lymph nodes measuring up to 0.9 cm. Trace amount of ascites in the right paracolic gutter. Negative RET and NTRK fusion mutations. PDL1 expression, CPS score 100%. She started palliative chemotherapy with carboplatin, Taxol and Keytruda. Unfortunately, patient presented with vaginal bleeding on 05/30/2022. CT abdomen/pelvis with IV contrast performed the same day revealed mild wall thickening of posterior wall of bladder which was abutting anterior vaginal wall. Bladder mass could not be excluded. 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 She does need a complete gynecological/pelvic examination including possibly a cystoscopy. I discussed above findings with Dr. Newton. Dr. Newton felt that patient was safe to resume chemotherapy and there was not anything significant on scans and brief examination at [facility]. Pelvic MRI performed 07/16/22 revealed diffuse bladder wall thickening and enhancement, stranding of perivesicular fat. Definite cervical or vaginal mass or fistula was not appreciated. No adnexal mass. Follow-up with cystoscopy was recommended. Her chemotherapy is on hold for now. Patient has had significant shrinkage of tumor with 2 cycles of chemotherapy. Patient has been not reachable for her appointments, she has been postponing her chemotherapy. She was advised that her disease can progress rapidly without treatment. 2. For pain control she is on oxycodone 4 mg every 4 hours as needed and MS Contin 30 mg every 12 hours. She has longstanding issues of pain and was on narcotics previously for arthritic pain. She understands terms of pain contract, she will stay on the dose she has been prescribed and not seek narcotic pain medications from different providers. She continues to call frequently for pain medications. She was advised to go for her appointment for cystoscopy. Follow up in 3 weeks - Time Spent With Patient Time Spent with Patient (in minutes): 20
[2022-08-09 15:17] VITALS: BP 118/67; PULSE 89; RESP 14; TEMP 36.8; O2SAT 98
[2022-08-09 15:42] LABS: MANUAL DIFF FLAG NO
[2022-08-09 15:48] LABS: Basophils Percent Auto 0.4 % (0-2); Eosinophils Percent Auto 0.2 % (0-4); Hematocrit 33.1 % (37.0-47.0); Hemoglobin 10.6 g/dl (12.0-16.0); Imm Gran Abs Auto 0.02 X10*3/uL (0.00-0.03); Imm Gran Pct Auto 0.4 % (0.0-0.4); Lymphocytes Absolute Auto 0.7 X10*3/uL (1.2-4.9); Lymphocytes Percent Auto 14.7 % (20-40); Mean Corpuscular Hemoglobin 25.3 pg (27.0-33.0); Monocytes Absolute Auto 0.3 X10*3/uL (0.1-1.2); Monocytes Percent Auto 5.3 % (2-11); Platelet Count 493 X10*3/uL (160-400); Red Blood Count 4.19 X10*6/uL (4.20-5.50); Red Cell Distribution Width 15.4 % (11.0-16.0); White Blood Count 5.1 X10*3/uL (4.8-10.8)
[2022-08-09 16:05] LABS: Alanine Aminotransferase 51 U/L (0-31); Albumin Level 3.3 g/dL (3.5-5.0); Alkaline Phosphatase 422 U/L (39-117); Anion Gap 13 (12-20); Aspartate Amino Transferase 38 U/L (5-31); Bilirubin Total 0.3 mg/dL (0.0-1.0); Blood Urea Nitrogen 14 mg/dL (9-16); Carbon Dioxide 25 mmol/L (22-29); Chloride 104 mmol/L (96-108); Creatinine Clr Calc Pharmacy 76.4; Estimated Glomerular Filt Rate > 60; Glucose Random 152 mg/dL (60-115); Potassium 4.1 mmol/L (3.3-5.1); Sodium 138 mmol/L (135-145); Total Protein 7.2 g/dL (6.5-8.0)
--- NOTE | 2022-08-16 10:41 | MHC.HEMONC ---
Pt called to request new scrip for MS Contin ER 30 mg PO Q12H, also asked to have her oxycodone dose increased. Nurse asked Dr. Cortez to send new scrip for MS Contin 30 mg, which she sent to [facility] on [facility] in [place]. 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 Nurse called Evelyn at home to inform her MS Contin would be available tomorrow, and also to remind her that she has been told multiple times that she has a narcotics contract w/ Dr. Durbin, and she cannot ask for her dose to be increased without discussing it first. Unfortunately, pt did not answer and her VM box was full, so nurse could not leave her a voicemail. Nurse called pt's cell phone, but no answer, and her cell phone mailbox was also full.
--- NOTE | 2022-08-17 16:02 | MHC.HEMONC ---
Triage call-pt called requesting refill for MS Contin 30mg q 12 hours be sent to [facility] on [facility] in [place] secondary to [facility] on [facility] not having medication in stock. Dr Cortez notified and will send script to [facility] on [facility] in [place]. Pt notified
--- NOTE | 2022-08-20 08:44 | MHC.HEMONC ---
Addendum entered by Vikas Berg RN 08/20/22 14:40: Nurse confirmed Dr. Durbin sent scrip to [facility] on [facility]. 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 Original Note: Triage call-pt called for refill on ms contin 30mg. States script needs to be sent to [facility] on [facility] in [place]. Message sent to Dr Durbin
--- NOTE | 2022-08-22 17:59 | MHC.HEMONC ---
Pt left VM, requesting new scrip for PRN oxycodone to be sent to [facility] on [facility] in [place], [place]. Nurse checked w/ pharmacy, who said the scrip was too early to be filled, but could be filled tomorrow. Dr. Durbin sent scrip as requested, nurse called pt to inform her, but no answer, could not leave as mailbox was full.
--- NOTE | 2022-09-04 14:34 | MHC.HEMONC ---
Triage call-pt called requesting refill on oxycodone. States she has enough until tomorrow 09/05/22. Message sent to Dr Durbin. Pt called and notified
[2022-09-05 14:04] VITALS: BP 136/75; PULSE 77; RESP 15; TEMP 35.9; O2SAT 96
--- NOTE | 2022-09-05 14:32 | PM.HEMONCPN ---
Medical Summary - Medical Summary Date of Service: 09/05/22 Chief complaint: Follow-up Primary Care Provider: Dean Villalba MD Medical Summary: Diagnosis: poorly differentiated squamous cell carcinom, metastatic cervical cancer, 02/2022 History of stage IIIB squamous carcinoma of cervix, treated by Dr. Post at [facility]. She received cisplatin from 11/15/2016 to 12/20/2016, external beam radiation therapy from 11/15/2016 to 2016. Vaginal brachytherapy 12/31/2016 and 01/07/2017 at [facility]. Presented with right flank pain and found to have large adrenal mass suspicious for carcinoma. CT abdomen/ pelvis performed 02/21 with IV contrast revealed a 6.2 x 5.3 cm mass in the right adrenal gland extending into retrocaval space and retroperitoneum. IVC is inseparable from this mass likely invaded. Enlarged left inguinal lymph node, enlarged periportal and upper retroperitoneal lymph nodes measuring up to 0.9 cm. Trace amount of ascites in the right paracolic gutter. 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 She had extensive endocrine workup, she was ruled out for pheochromocytoma. She underwent right adrenal smith core biopsy on 03/08/2022 which revealed metastatic squamous cell carcinoma, moderate to poorly differentiated involving fibrous soft tissue. Findings likely represent a metastasis from patient's cervical primary. Blood work today shows normal LDH with mildly elevated CEA level. CT chest with contrast did not show any suspicious lesions. She underwent right adrenal mass core biopsy on 03/08/2022 which revealed metastatic squamous cell carcinoma, moderate to poorly differentiated involving fibrous soft tissue. Findings likely represent a metastasis from patient's cervical primary. CT chest with contrast did not show any suspicious lesions. She was seen at [facility], she has not been recommended any surgery or upfront radiation therapy for pain control. She was recommended carboplatin/Taxol with Keytruda for metastatic cervical cancer. PET-CT performed 04/10/2022 however showed focus of abnormal FDG activity associated with soft tissue density in the mid esophagus with SUV 7.6 measuring 6.2 cm which was suspicious for primary tumor. She had other areas of FDG activity in the supraclavicular lymph node, right adrenal mass with SUV 12.1 right para-aortic lymph node SUV 9 and several additional smaller lymph nodes with FDG activity. No FDG activity in the uterus or pelvic organs. Patient underwent EGD on 05/15/2022 which did not show any esophageal tumor. Random biopsies obtained from mid esophagus was negative for malignancy. Interval History Interval history: Patient is here in follow-up. She has met with both urologist and retail coordinator. She is not having any bleeding and she was cleared to proceed with chemotherapy if she wished. Patient continues to say that chemotherapy made her very sick and caused her to bleed excessively. She does not want to resume treatment. She wants to receive hospice care. She is feeling weak and tired. She is losing weight. She lives at home with her daughter. Her daughter and son are both her healthcare proxies. Review of Systems - Constitutional Reports as per HPI - Neurologic Reports [facility] Medical History: Medical History (Last Reviewed 09/05/22 @ 14:04 by Loly Johnson) Back pain Cervical cancer Opiate abuse, episodic Osteoarthritis of both knees Osteopenia determined by x-ray Primary osteoarthritis of knees, bilateral Seropositive rheumatoid arthritis Family History: Family History (Last Reviewed 09/05/22 @ 14:04 by Loly Johnson) Father Acute CVA (cerebrovascular accident) Mother Hypertension Hypercholesterolemia Brother Liver transplant status Family history of thyroid problem Surgical History: Surgical History (Last Reviewed 09/05/22 @ 14:04 by Loly Johnson) History of appendectomy History of cholecystectomy History of D&C History of tonsillectomy Social History: Social History (Last Reviewed 09/05/22 @ 14:04 by Loly Johnson) Living Situation History: Household Members: Children Housing: House Are you a primary critical care specialist to a significant other at home: Yes Are you a primary critical care specialist to a significant other at home comment: mom Do you presently have visiting nurse or other home services: No Alcohol History Details: 1. How often do you have a drink containing alcohol?: a. Never Tobacco History: Patient Tobacco Use Status: Former Tobacco user Tobacco use type: Cigarette Smoke Quit Date: 2016 e-Cigarette/Vaping Use: Never Used Second Hand Smoke Exposure: No Substance Use History: Use of substances other than those prescribed or required for medical reasons: No Domestic Abuse History: Have you been hit, kicked, punched, or otherwise hurt by someone within the past year? 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 Medications and Allergies Home Medications Medication Instructions Recorded Confirmed Type omeprazole 20 mg capsule,delayed 20 mg PO DAILY 08/01/22 09/05/22 History release Allergies Allergy/AdvReac Type Severity Reaction Status Date / Time buprenorphine [Belbuca] Allergy Intermediate nausea Verified 08/31/22 11:17 Exam Vital signs: Vital Signs Temp 96.7 F L 09/05/22 14:04 Pulse 77 09/05/22 14:04 Resp 15 09/05/22 14:04 BP 136/75 09/05/22 14:04 Pulse Ox 96 09/05/22 14:04 O2 Del Method Room Air 09/05/22 14:04 Weight 61.6 kg BMI result Body Mass Index 22.6 - Constitutional Present: no acute distress - Routine HEENT Exam Head: Present: normal inspection - Routine Neck Exam Present: full ROM. Absent: lymphadenopathy - Routine Respiratory Exam Present: CTAB. Absent: accessory muscle use - Routine Cardiovascular Exam Cardiovascular: Present: S1, S2 - Routine Abdominal Exam Present: soft - Routine Extremities Exam Present: normal inspection - Routine Skin Exam Present: intact. 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 This is a 67-year-old woman with metastatic cervical cancer, poorly differentiated squamous cell carcinoma diagnosed 03/08/2022. CT abdomen/ pelvis performed 02/21 revealed a 6.2 x 5.3 cm mass in the right adrenal gland extending into retrocaval space and retroperitoneum. IVC is inseparable from this mass likely invaded. Enlarged left inguinal lymph node, enlarged periportal and upper retroperitoneal lymph nodes measuring up to 0.9 cm. Trace amount of ascites in the right paracolic gutter. Negative RET and NTRK fusion mutations. PDL1 expression, CPS score 100%. She started palliative chemotherapy with carboplatin, Taxol and Keytruda. Unfortunately, patient presented with vaginal bleeding on 05/30/2022. CT abdomen/pelvis with IV contrast performed the same day revealed mild wall thickening of posterior wall of bladder which was abutting anterior vaginal wall. Bladder mass could not be excluded. She was hospitalized at [facility], she refused manager statistical exam but underwent vaginal packing and total of 2 units PRBC transfusion. I discussed above findings with Dr. Newton. Dr. Newton felt that patient was safe to resume chemotherapy and there was not anything significant on scans and brief examination at [facility]. Pelvic MRI performed 07/16/22 revealed diffuse bladder wall thickening and enhancement, stranding of perivesicular fat. Definite cervical or vaginal mass or fistula was not appreciated. No adnexal mass. Follow-up with cystoscopy was recommended. Although she was cleared both by Gynecology and Urology to proceed with treatment, patient has declined any further chemotherapy or immunotherapy. She was advised that her disease can progress rapidly without treatment. She filled out a MOLST form, she wishes to be DNR/DNI. She is agreeable for hospice care. 2. Chronic pain issues. She is on MS Contin and oxycodone. - Time Spent With Patient Time Spent with Patient (in minutes): 25
--- NOTE | 2022-09-05 15:13 | MHC.HEMONC ---
I met with pt during her visit with Dr uDrbin. Pt hasn't had chemo in some time and feels much better and does not want it again. She is not agreeing to any further treatment and wants to have HOSPICE care. Dr Durbin believes this will support her well as she cannot tolerate treatment. She signed MOLST and I will make VNA/Hospice referral.
--- NOTE | 2022-09-05 17:06 | MHC.HEMONCMA ---
Patient seen today for followup and was placed on hospice.
--- NOTE | 2022-09-17 10:29 | MHC.HEMONC ---
Pt had [facility] but will wait to sign on until after she speaks to her son tati Barajas at [facility]
--- NOTE | 2022-09-19 10:11 | MHC.HEMONC ---
Pt called, asked to have her doses of Morphine and oxycodone increased, nurse was informed that pt was considering Hospice, had informational visit, but had yet to make a decision. Nurse informed pt that one main benefit of hospice is that they can increase pt's access to pain medications, stronger doses, more frequent doses, and will not stop until pt is comfortable. Nurse reiterated that Dr. Durbin has made it clear she would not increase pt's doses of pain meds, and that was one reason for her hospice referral. Pt asked about option of palliative care, but nurse cautioned that this is a good option to help pt get more time and attention from VNA nurse, but it does not give pt access to hospice benefits, so her pain management would still be limited. Nurse went over the benefits of hospice w/ pt, to think of it as a resource to help her, that she would never be forced to take any medication, and that she may revoke hospice at any point. Pt said she had yet to discuss hospice w/ her son, but she plans to, also said [facility] is coming to see her this afternoon.
--- NOTE | 2022-09-24 16:02 | MHC.HEMONC ---
Call from Gabby at [facility] saying pt refuses Hospice at this time and would like Palli Care. Referral sent and I made f/u with Dr Durbin next month. Pt is aware.
--- NOTE | 2022-10-01 14:13 | MHC.HEMONC ---
Pt called, requested new scrip for oxycodone, also requested dose increase for oxy PRN. Nurse reiterated previous conversation about benefits of hospice over palliative care, that Dr. Durbin cannot necessarily prescribe strong enough doses to manage her pain, but if she is hospice pt, hospice team will keep working until she is pain free. Pt said the hospice people came and told me I was going to be on palliative care. I just do what they tell me. Pt also said, they told me, hospice basically means you're gonna , that you're just giving up, but on palliative care, you could still get better. Nurse clarified that Hospice is a resource for people who don't have curable conditions, but it doesn't mean you've given up, and it is a tool to allow for proper symptom management if you qualify, and further qualified that hospice is just a type of palliative care, and unfortunately, palliative care is simply meant to help people feel better, and does not cure the cause of symptoms. Pt was apparently booked f/u w/ Dr. Durbin after declining hospice appt, but when pt said she wishes to discuss the dosing of her meds more, nurse booked her appt for tomorrow, 10/02, to meet w/ Dr. Durbin.
--- NOTE | 2022-10-02 12:27 | MHC.HEMONC ---
Pt called, said she is trying to make it in for her 3:20pm Onc f/u w/ Dr. Durbin today, to discuss her pain management, but she said she ran out of oxycodone 5 mg tabs, and cannot make it in without it, her pain is too great. Nurse passed request on to Dr. Durbin, who sent scrip to pt's [facility] [address], as requested. Nurse confirmed w/ [facility] pharmacist that scrip would be ready for forklift picker in 30 minutes, pt was notified, expressed her thanks, plans to be at 3:20 appt this afternoon.
[2022-10-02 15:34] VITALS: BP 130/61; PULSE 80; RESP 14; TEMP 36.4; O2SAT 98; BMI 19.4
--- NOTE | 2022-10-02 16:06 | MHC.HEMONCMA ---
patient seen today for follow up pain control, VSS, 1 month followup.
--- NOTE | 2022-10-02 16:07 | PM.HEMONCPN ---
Medical Summary - Medical Summary Date of Service: 10/02/22 Chief complaint: Follow-up Primary Care Provider: Dean Villalba MD Medical Summary: Diagnosis: poorly differentiated squamous cell carcinom, metastatic cervical cancer, 02/2022 History of stage IIIB squamous carcinoma of cervix, treated by Dr. Post at [facility]. She received cisplatin from 11/15/2016 to 12/20/2016, external beam radiation therapy from 11/15/2016 to 2016. Vaginal brachytherapy 12/31/2016 and 01/07/2017 at [facility]. Presented with right flank pain and found to have large adrenal mass suspicious for carcinoma. CT abdomen/ pelvis performed 02/21 with IV contrast revealed a 6.2 x 5.3 cm mass in the right adrenal gland extending into retrocaval space and retroperitoneum. IVC is inseparable from this mass likely invaded. Enlarged left inguinal lymph node, enlarged periportal and upper retroperitoneal lymph nodes measuring up to 0.9 cm. Trace amount of ascites in the right paracolic gutter. 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 She had extensive endocrine workup, she was ruled out for pheochromocytoma. She underwent right adrenal smith core biopsy on 03/08/2022 which revealed metastatic squamous cell carcinoma, moderate to poorly differentiated involving fibrous soft tissue. Findings likely represent a metastasis from patient's cervical primary. Blood work today shows normal LDH with mildly elevated CEA level. CT chest with contrast did not show any suspicious lesions. She underwent right adrenal mass core biopsy on 03/08/2022 which revealed metastatic squamous cell carcinoma, moderate to poorly differentiated involving fibrous soft tissue. Findings likely represent a metastasis from patient's cervical primary. CT chest with contrast did not show any suspicious lesions. She was seen at [facility], she has not been recommended any surgery or upfront radiation therapy for pain control. She was recommended carboplatin/Taxol with Keytruda for metastatic cervical cancer. PET-CT performed 04/10/2022 however showed focus of abnormal FDG activity associated with soft tissue density in the mid esophagus with SUV 7.6 measuring 6.2 cm which was suspicious for primary tumor. She had other areas of FDG activity in the supraclavicular lymph node, right adrenal mass with SUV 12.1 right para-aortic lymph node SUV 9 and several additional smaller lymph nodes with FDG activity. No FDG activity in the uterus or pelvic organs. Patient underwent EGD on 05/15/2022 which did not show any esophageal tumor. Random biopsies obtained from mid esophagus was negative for malignancy. Interval History Interval history: Patient is here in follow-up. She has met with both urologist and banana expert. She is not having any bleeding and she was cleared to proceed with chemotherapy if she wished. Patient continues to say that chemotherapy made her very sick and caused her to bleed excessively. Last month she was ready to go on hospice. She has now changed her mind. She wants to know if she can get immunotherapy. However she would like to wait a few more days and see if she is strong enough. She reports that she has intermittent bleeding, she is not sure if it is coming from her vagina or urethra. She takes prednisone intermittently for her arthralgias. She is taking oxycodone around the clock. Review of Systems - Constitutional Reports as per HPI, Reports fatigue, Reports malaise, Reports poor appetite - Cardiovascular Reports no additional cardiovascular complaints - Respiratory Reports no additional respiratory complaints - Gastrointestinal Reports no additional gastrointestinal complaints - Neurologic Reports weakness [facility] Medical History: Medical History (Last Reviewed 10/02/22 @ 15:36 by Loly Johnson) Back pain Cervical cancer Opiate abuse, episodic Osteoarthritis of both knees Osteopenia determined by x-ray Primary osteoarthritis of knees, bilateral Seropositive rheumatoid arthritis Family History: Family History (Last Reviewed 10/02/22 @ 15:36 by Loly Johnson) Father Acute CVA (cerebrovascular accident) Mother Hypertension Hypercholesterolemia Brother Liver transplant status Family history of thyroid problem Surgical History: Surgical History (Last Reviewed 10/02/22 @ 15:36 by Loly Johnson) History of appendectomy History of cholecystectomy History of D&C History of tonsillectomy Social History: Social History (Last Reviewed 10/02/22 @ 15:36 by Loly Johnson) Living Situation History: Household Members: Children Housing: House Are you a primary care services manager to a significant other at home: Yes Are you a primary care services manager to a significant other at home comment: mom Do you presently have visiting nurse or other home services: No Alcohol History Details: 1. How often do you have a drink containing alcohol?: a. Never Tobacco History: Patient Tobacco Use Status: Former Tobacco user Tobacco use type: Cigarette Smoke Quit Date: 2016 e-Cigarette/Vaping Use: Never Used Second Hand Smoke Exposure: No Substance Use History: Use of substances other than those prescribed or required for medical reasons: No Domestic Abuse History: Have you been hit, kicked, punched, or otherwise hurt by someone within the past year? 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 Medications and Allergies Home Medications Medication Instructions Recorded Confirmed Type omeprazole 20 mg capsule,delayed 20 mg PO DAILY 08/01/22 10/02/22 History release Allergies Allergy/AdvReac Type Severity Reaction Status Date / Time buprenorphine [Belbuca] Allergy Intermediate nausea Verified 09/18/22 13:37 Exam Vital signs: Vital Signs Temp 97.5 F 10/02/22 15:34 Pulse 80 10/02/22 15:34 Resp 14 10/02/22 15:34 BP 130/61 10/02/22 15:34 Pulse Ox 98 10/02/22 15:34 O2 Del Method Room Air 10/02/22 15:34 Intake & Output 10/01/22 10/02/22 10/02/22 18:59 06:59 18:59 Other: Weight 53 kg Raymond Weight in Grams [id number] Weight 53 kg BMI result Body Mass Index 19.4 - Constitutional Present: no acute distress - Routine HEENT Exam Head: Present: normal inspection - Routine Neck Exam Present: full ROM. Absent: lymphadenopathy - Routine Respiratory Exam Present: CTAB. Absent: accessory muscle use - Routine Cardiovascular Exam Cardiovascular: Present: S1, S2 - Routine Abdominal Exam Present: soft - Routine Extremities Exam Present: normal inspection - Routine Skin Exam Present: intact. 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 This is a 67-year-old woman with metastatic cervical cancer, poorly differentiated squamous cell carcinoma diagnosed 03/08/2022. CT abdomen/ pelvis performed 02/21 revealed a 6.2 x 5.3 cm mass in the right adrenal gland extending into retrocaval space and retroperitoneum. IVC is inseparable from this mass likely invaded. Enlarged left inguinal lymph node, enlarged periportal and upper retroperitoneal lymph nodes measuring up to 0.9 cm. Trace amount of ascites in the right paracolic gutter. Negative RET and NTRK fusion mutations. PDL1 expression, CPS score 100%. She started palliative chemotherapy with carboplatin, Taxol and Keytruda. Unfortunately, patient presented with vaginal bleeding on 05/30/2022. CT abdomen/pelvis with IV contrast performed the same day revealed mild wall thickening of posterior wall of bladder which was abutting anterior vaginal wall. Bladder mass could not be excluded. She was hospitalized at [facility], she refused knitting machine mechanic exam but underwent vaginal packing and total of 2 units PRBC transfusion. I discussed above findings with Dr. Newton. Dr. Newton felt that patient was safe to resume chemotherapy and there was not anything significant on scans and brief examination at [facility]. Pelvic MRI performed 07/16/22 revealed diffuse bladder wall thickening and enhancement, stranding of perivesicular fat. Definite cervical or vaginal mass or fistula was not appreciated. No adnexal mass. Follow-up with cystoscopy was recommended. Although she was cleared both by Gynecology and Urology to proceed with treatment, she remains hesitant on undecided about resuming treatment. We discussed single agent immunotherapy as her PDL1 expression is excellent. She is now receiving palliative care. I have advised her to call she is willing to start immunotherapy. 2. Chronic pain issues. She is on MS Contin and oxycodone. Follow-up in 1 month. - Time Spent With Patient Time Spent with Patient (in minutes): 15
[2022-10-02 16:31] LABS: MANUAL DIFF FLAG NO
[2022-10-02 17:16] LABS: Basophils Percent Auto 0.1 % (0-2); Hematocrit 38.1 % (37.0-47.0); Hemoglobin 11.5 g/dl (12.0-16.0); Imm Gran Abs Auto 0.03 X10*3/uL (0.00-0.03); Imm Gran Pct Auto 0.4 % (0.0-0.4); Lymphocytes Absolute Auto 0.7 X10*3/uL (1.2-4.9); Lymphocytes Percent Auto 10.5 % (20-40); Mean Corpuscular HGB Conc 30.2 g/dl (31.0-35.0); Mean Corpuscular Hemoglobin 24.9 pg (27.0-33.0); Mean Corpuscular Volume 82.6 fL (80.0-98.0); Mean Platelet Volume 9.6 fL (9.4-12.3); Monocytes Absolute Auto 0.2 X10*3/uL (0.1-1.2); Monocytes Percent Auto 3.4 % (2-11); Neutrophils Percent Auto 85.6 % (45-73); Platelet Count 504 X10*3/uL (160-400); Red Blood Count 4.61 X10*6/uL (4.20-5.50); Red Cell Distribution Width 15.4 % (11.0-16.0); White Blood Count 7.1 X10*3/uL (4.8-10.8)
[2022-10-02 19:25] LABS: Alanine Aminotransferase 25 U/L (0-31); Albumin Level 3.7 g/dL (3.5-5.0); Alkaline Phosphatase 150 U/L (39-117); Anion Gap 14 (12-20); Aspartate Amino Transferase 24 U/L (5-31); Bilirubin Total 0.2 mg/dL (0.0-1.0); Blood Urea Nitrogen 28 mg/dL (9-16); Calcium 9.3 mg/dL (8.4-10.2); Carbon Dioxide 25 mmol/L (22-29); Chloride 102 mmol/L (96-108); Estimated Glomerular Filt Rate > 60; Glucose Random 145 mg/dL (60-115); Potassium 4.1 mmol/L (3.3-5.1); Sodium 137 mmol/L (135-145); Total Protein 7.7 g/dL (6.5-8.0)
--- NOTE | 2022-10-03 14:24 | HO.HEMONCPA ---
NO PA NEEDED FOR PET/CT SCAN (69974) SKULL TO THIGH COVERED BY MEDICARE PART B BENEFITS FAXED TO [facility] FOR SCHEDULING
--- NOTE | 2022-10-03 15:05 | MHC.HEMONC ---
I called pt and spoke to her following her appt with Dr Durbin yesterday. She had labs drawn that were fairly good. Pt looks good and pain is being managed. She agreed to have PET scan to determine if she received any benefit from chemo/immunotherapy as she may want to restart treatment(s). Dr Durbin ordered PET and Milady will get PA and send to [facility].
--- NOTE | 2022-10-08 09:39 | MHC.HEMONC ---
Pt left VM on refill line, again requesting increase in her PRN oxycodone dose. Nurse inquired w/ Dr. Durbin, who said she had already told the pt multiple times she will not increase her dose of oxycodone, but this is why Hospice was recommended to pt. Nurse called pt at home, explained that Dr. Durbin had advised Hospice for just this reason, to effectively manage her pain. Pt said that palliative care nurses had told her that she could get pain managed on palliative, but nurse reiterated that under palliative care, provider is still limited and can still decide what doses she feels are appropriate. Pt said she was in terrible pain over the weekend, can't live like this anymore. Pt said she plans to tell the [facility] palliative care nurse today that she wants to go on Hospice for pain management. Nurse updated Dr. Durbin and BHANU Salcido, who said they are trying to get pt a PET scan, will continue to try until they hear that pt has actually accepted Hospice.
--- NOTE | 2022-10-08 15:47 | HO.HEMONCSCH ---
PET/CT SKULL TO THIGH ([id number]) BOOKED WITH [facility] ON 10/09/22 AT 10:15AM (GIVEN TO BRIGID)
--- NOTE | 2022-10-10 12:27 | MHC.HEMONC ---
Pt called triage line asking for increase in pain medication oxycodone. Pt reports is on palliative care and is being seen by [facility], [facility] and a 7th grade social studies teacher. Pt had PET Scan results are pending. This nurse spoke with patient letting her know Dr Durbin is waiting for the PET scan report to determine if there are any other options. We will contact her once we have the results. Pt will continue on Palliative care for now. Dr Durbin aware.
--- NOTE | 2022-10-12 11:37 | MHC.HEMONC ---
I called pt to tell her (per Dr Durbin) that her PET looked really good and it would appear that she benefited from previous treatments. I told her Dr Durbin would restart treatment if she agrees. She said I can't do anything right now because my bleeding has started up again. She also requested an increase in pain meds. I checked with Dr Durbin before calling pt back - she will not continue to prescribe narcotics for her and would like her to f/u with PCP going forward as she does not want cancer treatment. I am awaiting a call back from pt - Dr Durbin to speak with her PCP.
--- NOTE | 2022-10-15 10:49 | MHC.HEMONC ---
Triage call for refill oxycodone/morphine. MSG/Text sent to Dr Durbin.
--- NOTE | 2022-10-15 15:29 | MHC.HEMONCMA ---
Dr. Dean Villalba PCP will be handling all refills for pain medications from today on per Dr Durbin.
--- NOTE | 2022-10-16 10:32 | MHC.HEMONC ---
Addendum entered by Joyce Champagne RN 10/16/22 10:39: addendum- Pt has an appointment with Dr Suero on 10/19/[address] Durbin will send in script to cover her until that day. Pt notified and is aware that future refills have to come from Dr suero. Original Note: Pt called refill line asking to speak with Loly Solo. Pt asking if Dr Durbin can refill scripts for oxycodone/morphine one more time until she sees Dr Suero. She states she has called Dr Suero for refills but he will not refill until she sees her. Message given to Loyl Solo.
--- NOTE | 2023-01-02 15:27 | MHC.HEMONC ---
I left message at Dr Durbin's request with [facility] informing them that pt is no longer seeing us here and that all refills for meds should be done through PCP.
== END 2023-04-07 | disposition home or self-care (01) ==
LOC: HO.ONC 15:20
PROVIDERS: PCP Family Medicine; Visit Provider Internal Medicine
DX: C79.71 Secondary malignant neoplasm of right adrenal gland (principal); Z85.41 Personal history of malignant neoplasm of cervix uteri; G89.29 Other chronic pain; Z79.891 Long term (current) use of opiate analgesic
CPT/HCPCS: 36415; 80048; 80053; 81001; 81003; 82378; 83615; 84443; 85007; 85025; 85027; 86304; 86704; 86706; 86850; 86900; 86901; 87340; 96360; 96361; 96366; 96367; 96375; 96377; 96413; 96415; 96417; 99211; 99214; 99215; J1100; J1200; J1453; J2405; J2506; J9045; J9267; J9271

== ENCOUNTER 2022-10-09 10:10 | Outpatient (REF) | payer MEDICARE, MEDICAID, SELFPAY ==
--- NOTE | ~2022-10-09 | PE_ITS ---
EXAMINATION: Fluorine-18 FDG PET/CT Scan CLINICAL INDICATION: Subsequent treatment management. Malignant neoplasm of cervix uteri restaging. PROCEDURE: 65 minutes following the intravenous administration of 16.4 mCi of fluorine 18 FDG, images from the base of the skull to the mid thighs were obtained using a combined PET/CT scanner with CT scan based attenuation correction. No oral contrast was administered. No intravenous contrast was administered. Transverse, coronal, sagittal, and volume reconstruction projections were obtained. The patient's blood glucose as determined by a finger stick, was 92 mg/dl immediately prior to injection. Total CT exam dose-length product 207.08 mGy-cm * These CT images were obtained using dose optimization techniques as appropriate, variously including the following: Automated exposure control * Adjustment of mA and/or kV according to patient size (this includes techniques or standardized protocols for targeted exams where dose is matched to indication/reason for exam; i.e. extremities or head) * Use of iterative reconstruction technique COMPARISON: The previous PET CT scan dated 04/10/2022 is available for comparison. The diagnostic CT scan of the abdomen and pelvis, dated 05/31/2022, is available for comparison. FINDINGS: (Slice numbers described in this report are numbered superiorly to inferiorly with slice #1 in the head) NECK AND VISUALIZED HEAD: No foci of abnormal FDG activity are noted. The distribution of FDG activity is physiological. There is no cervical lymphadenopathy. A mildly FDG avid and enlarged left cervical level 5B lymph node present on the 04/10/2022 PET/CT scan is no longer present. THORAX: Bilateral weakly FDG avid axillary lymph nodes are present, showing SUVmax 2.4, slice 76/267 on the right and SUVmax 2.2, slice 83/267 on the left. These measure 2.0 x 0.7 cm on the right and 1.9 x 0.8 cm on the left and were not present on the 04/10/[address] scan. Intensely increased FDG activity involving several centimeters of length in the midesophagus present on the 04/10/2022 study has probably completely resolved. A small focus of increased FDG activity in this region is inseparable from the adjacent vertebral body and descending thoracic aortic activity and may represent physiological activity within one of these, but this shows some focal component with SUVmax 2.3, slice 98/267, much less intense than on the previous study when this showed SUVmax 7.6. There are no additional foci of abnormal FDG activity present in the chest. There is no pleural or pericardial fluid, or pneumothorax. There is no mediastinal, supraclavicular, or additional axillary lymphadenopathy. ABDOMEN AND PELVIS: There is now only mild FDG activity present in the right adrenal gland. This is much less intense than on the prior study when this showed SUVmax 12.1, and the mass is much smaller in size, now measuring 2.2 x 1.6 cm in largest transverse dimensions and more densely calcified, particularly along its anterior aspect. The left adrenal gland continues to be unremarkable. An adjacent discrete FDG avid lymph node anterior and medial to the right adrenal gland present on 04/10/2022 study is no longer present. There are no additional foci of abnormal FDG activity in the abdomen or pelvis. FDG activity of varying intensities is present throughout the gastrointestinal tract but most intensely in the right colon and cecal region, but this is probably physiological and there are no corresponding CT abnormalities. The liver is unremarkable. Biliary ductal dilatation visualized on the 05/31/[address] scan is not apparent on these nondiagnostic CT images. There is no abnormal FDG activity in the liver. The gallbladder has been resected and a metallic surgical clip in the gallbladder bed is noted. The spleen is unremarkable. The kidneys and pancreas are unremarkable. Extensive FDG avid retroperitoneal lymphadenopathy present on 04/10/2022 has resolved. There is now no retroperitoneal, mesenteric, pelvic or inguinal lymphadenopathy. The pelvic organs are unremarkable. MUSCULOSKELETAL: There is mildly increased FDG activity in the right acromioclavicular joint, in the sternoclavicular joints bilaterally, and in the hands and wrists bilaterally all probably arthritic in etiology. There are no other foci of abnormal FDG activity in the osseous structures. There are degenerative changes in the spine and a mild thoracolumbar scoliosis with lumbar convexity to the right is noted. There is severe degenerative disc disease with no associated abnormal FDG activity at the L3-L4 disc space. There are no suspicious sclerotic or lytic lesions visualized. VASCULAR: Vascular calcifications including coronary are noted. PET/PET CT fusion skull to thigh IMPRESSION: 1. Marked diminution in the FDG avidity and size of a FDG avid right adrenal mass present on the 04/10/2022 prior. This is evidence of a marked partial metabolic response to therapy. 2. Complete or almost complete resolution of the FDG avid mid esophageal soft tissue lesion. This is consistent with a marked partial, or possibly complete metabolic response to therapy of this abnormality. 3. FDG avid retroperitoneal lymphadenopathy has resolved, evidence of a complete metabolic response to therapy of the latter. 4. Weakly FDG avid bilateral axillary lymphadenopathy is nonspecific. Although metastatic disease cannot be ruled out, the intensity would be number consistent with inflammatory lesions, and these could be vaccination related. Clinical correlation is recommended. 5. No additional abnormalities strongly suspicious for metastatic or other malignant lesions are noted. 6. Vascular calcifications including coronary.
== END 2022-10-09 10:11 | disposition home or self-care (01) ==
LOC: HO.PET 10:10
PROVIDERS: PCP Family Medicine; Visit Provider Internal Medicine
DX: Z13.89 Encounter for screening for other disorder (principal)

== ENCOUNTER 2022-10-19 13:09 | Outpatient (AMB) | payer MEDICARE, MEDICAID, SELFPAY ==
[2022-10-19 13:20] VITALS: BP 130/70; PULSE 75; RESP 12; TEMP 36.3; O2SAT 99; BMI 19.5
--- NOTE | 2022-10-19 13:20 | A.OFFPC_ITS ---
Vital Signs 10/19/22 13:20 Height 5 ft 5 in Weight 117 lb 2 oz BMI 19.5 BP 130/70 Blood Pressure Location Lt brachial Position Sitting Respiration 12 Pulse 75 Pulse Source Pulse Oximeter Temp 97.3 F Temp Source Temporal Artery Scan Pulse Oximetry (%) 99 Oxygen Delivery Method Room Air Intake Visit Reasons: f/u anxiety/depression Intake Note: Patient states she need her lorazepam sent over, she states that the pharmacy wont let her roller picker the script that was just sent due to it being too early for her to receive them. Patient would also like a refill on Oxycodone and morphine if possible. Graphic Artist Required: No Accompanied by: Self / Same As Patient Allergies buprenorphine [Belbuca] Allergy (Intermediate, Verified 10/19/22 13:27) nausea Medication List - Last Reconciled 10/19/22 by Dean Villalba MD alendronate 70 mg PO QWEEK cane As directed clotrimazole 1% 1 appful vaginal BEDTIME 7 days diaper,brief,adult,disposable ([employer] Adult Brief) 2 daily As directed, 30 days ferrous sulfate 325 mg PO BID food supplemt, lactose-reduced (Ensure oral liquid) 1 ea PO DAILY 90 days gabapentin 600 mg PO DAILY 30 days lorazepam 1mg to 2mg orally 2 times a day PRN; MassPat verified. Partial refill upon request. 30 days meclizine 12.5 mg PO DAILY PRN 30 days morphine ER (MS Contin) 30 mg PO Q12H omeprazole 20 mg PO DAILY ondansetron 8 mg PO Q8H PRN oxycodone 5 mg PO Q6H PRN sertraline 75 mg (1.5 x 50 mg) PO DAILY 90 days walker (Ultra-Light Rollator misc) Rollator walker with seat and brakes. Daily as directed. 999 days Tobacco use date assessed: 09/18/22 Fall risk assessment: 2 + Falls in past year Last assessed Fall Risk: 10/19/22 Dental Screening Dental Screen Date: 10/19/22 Did you have a dental visit in the last 12 months?: No Did you have a dental problem in the last 6 months where you did not have access to dental care?: No Was dental information given to patient?: Yes HPI f/u anxiety/depression HPI Details 67 y/o female presents to f/u anxiety as well as pain control. GCMS testing showed lorazepam in urine and she appears to be taking this appropriately. Resumed 30 day prescriptions. Spoke to Hematology-Oncology, Dr. Durbin regarding patient's pain medication requirements. Patient was started on pain medications because she has had legitimate disease with metastatic cervical cancer and had been complaining of abdominal pain. Since then however she has had good response to chemotherapy and Dr. Durbin feels that her cancer is currently under good control and she is monitoring it. Patient has discontinued chemotherapy with complaints of vaginal bleeding though this seems to be quite minimal.? She responded well to a single transfusion and remains well controlled without any significant concerns of hemorrhage. On discussing with Dr. Durbin, we both feel that her pain medications can be weaned down and though Evelyn is currently seeking more medication and has rheumatological complaints as well. We both agreed that she can safely tolerate some NSAIDs and weaning down of her pain medication. She may need a referral to pain management or Rheumatology. I agree w/ Heme-Onc that we can safely decrease this in a way that will manage her pain and other issues. [facility] Medical History Back pain Cervical cancer Opiate abuse, episodic Osteoarthritis of both knees Osteopenia determined by x-ray Primary osteoarthritis of knees, bilateral Seropositive rheumatoid arthritis Surgical History History of appendectomy History of cholecystectomy History of D&C History of tonsillectomy Family History Father Acute CVA (cerebrovascular accident) Mother Hypertension Hypercholesterolemia Brother Liver transplant status Family history of thyroid problem Social History Household Members: Children Housing: House Are you a primary physician primary care sports medicine to a significant other at home: Yes (mom) Do you presently have visiting nurse or other home services: No Alcohol intake: never Patient Tobacco Use Status: Former Tobacco user Quit Date: 2016 Tobacco use type: Cigarette e-Cigarette/Vaping Use: Never Used Second Hand Smoke Exposure: No service: No 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 Cognitive needs: No Hearing needs: No Vision needs: No Questionnaire PHQ-9 Over the last 2 weeks, how often have you been bothered by any of the following problems? 1. Little interest or pleasure in doing things: not at all 2. Feeling down, depressed, or hopeless: not at all 3. Trouble falling or staying asleep, or sleeping too much: nearly every day 4. Feeling tired or having little energy: not at all 5. Poor appetite or overeating: more than half the days 6. Feeling bad about yourself - or that you are a failure or have let yourself or your family down: not at all 7. Trouble concentrating on things, such as reading the newspaper or watching television: not at all 8. Moving or speaking so slowly that other people could have noticed. Or the opposite - being so fidgety or restless that you have been moving around a lot more than usual: not at all 9. Thoughts that you would be better off or of hurting yourself in some way: not at all Total score: 5 Source: Developed by Drs. Kevin Kenney, Joanie Swan, Marino Medina and colleagues, with an educational july from [employer]. Thrive Questionnaire Date Thrive assessed: 08/18/21 STEPHIE-7 AMB Questionnaire STEPHIE-7 Date STEPHIE - 7 assessed: 10/19/22 Feeling nervous, anxious, or on edge: 3 = Nearly every day Not being able to stop or control worryin = Not at all Worrying too much about different things: 0 = Not at all Trouble relaxin = Nearly every day Being so restless that it is hard to sit still: 3 = Nearly every day Becoming easily annoyed or irritable: 3 = Nearly every day Feeling afraid as if something awful might happen: 0 = Not at all Total STEPHIE-7 score (0-4 normal; 5-9 mild; 10-14 moderate; 15-21 severe): 12 Source: Developed by Drs. Kevin Kenney, Joanie Swan, Marino curry nd colleagues, with an educational july from [employer]. Review of Systems Const Denies chills, Denies fatigue, Denies fever(s), Denies headache(s) and Denies weakness ENT Denies dizziness and Denies headache(s) Card Denies dyspnea Resp Denies cough, Denies dyspnea, Denies wheezing and Denies other (shortness of breath) Musc Denies numbness and Denies tingling Neuro Denies dizziness, Denies headache(s), Denies numbness, Denies tingling and Denies weakness Psych Denies anxiety and Denies depression Endo Denies fatigue Aller/Immun Denies wheezing Physical exam (Primary Care) Vital Signs: Last Vital Signs Temp 97.3 F 10/19/22 13:20 Pulse 75 10/19/22 13:20 Resp 12 10/19/22 13:20 BP 130/70 10/19/22 13:20 Pulse Ox 99 10/19/22 13:20 Oxygen Delivery Method Room Air 10/19/22 13:20 BMI result Body Mass Index 19.5 Tobacco/Smoking Status: Tobacco use Status Tobacco use date assessed 09/18/22 10/19/22 13:39 Patient Tobacco Use Status Former Tobacco user 10/19/22 13:39 Tobacco use type Cigarette 10/19/22 13:39 e-Cigarette/Vaping Use Never Used 10/19/22 13:39 PHQ-9: PHQ-9 Score PHQ-9: Total score 5 10/19/22 13:45 Thrive Assessment: Date of Thrive Assessment Date Thrive assessed 08/18/21 10/19/22 13:39 Const General: well developed; No acute distress Nutritional Appearance: well nourished Orientation/consciousness: patient oriented x3 HENMT Head: Yes normocephalic and Yes atraumatic Eyes General: appearance normal, both eyes and all related structures Pupils: Equal, round and reactive pupils present EOM: EOMs intact bilaterally Resp Effort & Inspection: normal respiratory effort Neuro General: patient oriented x3 and gait normal Cranial nerves: Yes Equal, round and reactive pupils present Psych Affect: Anxious affect present Assessment and Plan Assessment & Plan (1) Anxiety with depression: Code(s): F41.8 - Other specified anxiety disorders Plan: Patient has been fairly stable on lorazepam 2 mg twice a day Her last prescription only sent is 60 tablets however which is not enough to cover her for the month. I am asking the nuclear medicine medical director to call pharmacy and help her get her medication for the rest of the month (2) Chronic, continuous use of opioids: Code(s): F11.90 - Opioid use, unspecified, uncomplicated Plan: Patient has history of cervical cancer with metastasis and had had complaints of abdominal pain and other pain for which she was given opioid pain medications. She has responded very well to her cancer treatments which are well controlled. After discussion with Hematology-Oncology, I feel that she can be safely switched to or NSAID medications and have her opioid pain medications weaned down. Will continue MS Contin 30 mg q.12 hours for now Will be weaning her oxycodone 5 mg q.6 hours; she will take 2.5 mg q.6 hours. I have asked her to work at voluntarily decreasing this and I will decrease this in her next prescription. We will follow-up in 1 month. (3) Anemia: Code(s): D64.9 - Anemia, unspecified Plan: History of anemia and transfusion. Patient has some complaints of vaginal bleeding but objective bleeding has been minimal for quite some time and CBC has been stable. Will recheck CBC. She is okay to use NSAIDs. Will monitor. 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 Follow-up with Hematology-Oncology as recommended Medications: New naproxen 500 mg PO BID PRN 60 tabs 0RF pain 30 days Dean Villalba MD lorazepam Temporary script as 1 mg tabs are on back order 2 mg (4 x 0.5 mg) PO BID PRN 120 tabs 0RF anxiety 15 days Dean Villalba MD Discontinued oxycodone Partial Fill upon patient request. 5 mg PO Q6H PRN 60 tabs 0RF Pain Tashi Cortez MD morphine ER (MS Contin) Partial Fill upon patient request. 30 mg PO Q12H 60 tabs 0RF Cheyenne Durbin MD oxycodone Partial Fill upon patient request. 5 mg PO Q6H PRN 60 tabs 0RF Pain Cheyenne Durbin MD morphine ER (MS Contin) Partial Fill upon patient request. 30 mg PO Q12H 60 tabs 0RF Cheyenne Durbin MD oxycodone Partial Fill upon patient request. 5 mg PO Q6H PRN 60 tabs 0RF Pain Cheyenne Durbin MD morphine ER (MS Contin) Partial Fill upon patient request. 30 mg PO Q12H 60 tabs 0RF Tashi Cortez MD oxycodone Partial Fill upon patient request. 5 mg PO Q6H PRN 60 tabs 0RF Pain Cheyenne Durbin MD morphine ER (MS Contin) Partial Fill upon patient request. 30 mg PO Q12H 60 tabs 0RF Cheyenne Durbin MD oxycodone Partial Fill upon patient request. 5 mg PO Q6H PRN 60 tabs 0RF Pain Cheyenne Durbin MD oxycodone Partial Fill upon patient request. 5 mg PO Q6H PRN 60 tabs 0RF Pain Cheyenne Durbin MD oxycodone Partial Fill upon patient request. 5 mg PO Q6H PRN 60 tabs 0RF Pain Cheyenne Durbin MD oxycodone Partial Fill upon patient request. 5 mg PO Q6H PRN 60 tabs 0RF Pain Tashi Cortez MD morphine ER (MS Contin) Partial Fill upon patient request. 30 mg PO Q12H 60 tabs 0RF Cheyenne Durbin MD oxycodone Partial Fill upon patient request. 5 mg PO Q6H PRN 60 tabs 0RF Pain Cheyenne Durbin MD oxycodone Partial Fill upon patient request. 5 mg PO Q6H PRN 60 tabs 0RF Pain Cheyenne Durbin MD Coding Level of Care Code Est Pt Level 4 (68816) Diagnoses Anxiety with depression F41.8 Chronic, continuous use of opioids F11.90 Anemia D64.9 Squamous cell carcinoma of cervix C53.9
== END 2022-10-19 14:25 | disposition home or self-care (01) ==
PROVIDERS: PCP Family Medicine; Visit Provider Family Medicine
DX: F41.8 Other specified anxiety disorders (principal); F11.90 Opioid use, unspecified, uncomplicated; D64.9 Anemia, unspecified; C53.9 Malignant neoplasm of cervix uteri, unspecified
CPT/HCPCS: 99214

== ENCOUNTER 2022-10-21 12:17 | Emergency (ER) | payer MEDICARE, MEDICAID, SELFPAY ==
[2022-10-21 12:23] VITALS: BP 123/72; PULSE 82; RESP 16; TEMP 37.3; O2SAT 98; BMI 19.6
--- NOTE | 2022-10-21 12:29 | ED.GENADULT ---
HPI - General Adult General Chief complaint: Urogenital-Female Stated complaint: Blood in urine/Issues w prescriptions Time Seen by Provider: 10/21/22 13:20 Source: patient, RN notes reviewed and old records reviewed Mode of arrival: ambulatory Limitations: no limitations History of Present Illness HPI narrative: Patient is a 67-year-old female with metastatic cervical cancer and poorly differentiated squamous cell carcinoma presenting to the emergency department with ongoing hematuria as well as pain due to her running out of her pain medications. She saw her PCP on Saturday, 10/19 and states that her PCP said he would prescribe her MS and oxycodone but did not. States she has not had her morphine or oxycodone since Saturday. Reports ongoing history of hematuria and denies any new symptoms. States did have dysuria earlier in the week but none for past several days. Denies fevers. Denies any large clots. Reports chronic abdominal and back pain, states back pain has worsened since running out of her pain medications and is causing her difficulty with ambulation. States she is on palliative care. Denies any recent falls or other trauma. MD complaint: hematuria, abdominal and back pain Onset (ago): day(s) Location: back and abdomen Radiation: non-radiation Severity: severe Quality: aching Pain Consistency: constant Relieving factors: none Exacerbating factors: movement Associated symptoms: denies other symptoms Treatments prior to arrival: none Related Data Home Medications Medication Instructions Recorded Confirmed omeprazole 20 mg capsule,delayed 20 mg PO DAILY 08/01/22 10/19/22 release Previous Rx's Medication Instructions Recorded cane #1 ea 08/18/21 sertraline 50 mg tablet 75 mg PO DAILY 90 days #135 tabs 06/29/22 clotrimazole 1 % vaginal cream 1 appful vaginal BEDTIME 7 days 07/10/22 #45 grams food supplemt, lactose-reduced 1 ea PO DAILY 90 days #21,330 mL 07/12/22 (Ensure oral liquid) ferrous sulfate 325 mg (65 mg 325 mg PO BID #60 tabs 08/09/22 iron) tablet alendronate 70 mg tablet 70 mg PO QWEEK #12 tabs 08/22/22 walker (Ultra-Light Rollator misc) #1 ea 08/31/22 diaper,brief,adult,disposable #60 ea 09/13/22 ([employer] Adult Brief) morphine 30 mg tablet,extended 30 mg PO Q12H #60 tabs 09/18/22 release (MS Contin) lorazepam 1 mg tablet See Rx Instructions PO BID PRN 09/28/22 anxiety 30 days #120 tabs oxycodone 5 mg tablet 5 mg PO Q6H PRN Pain #60 tabs 10/02/22 meclizine 12.5 mg tablet 12.5 mg PO DAILY PRN dizziness 30 10/03/22 days #14 tabs ondansetron 8 mg disintegrating 8 mg PO Q8H PRN nausea 10/08/22 tablet gabapentin 600 mg tablet 600 mg PO DAILY 30 days #30 tabs 10/16/22 lorazepam 0.5 mg tablet 2 mg PO BID PRN anxiety 15 days 10/19/22 #120 tabs naproxen 500 mg tablet 500 mg PO BID PRN pain 30 days #60 10/19/22 tabs morphine 30 mg tablet,extended 30 mg PO Q12H #6 tabs 10/21/22 release oxycodone 5 mg tablet 2.5 mg PO Q6H PRN pain #6 tabs 10/21/22 Allergies Allergy/AdvReac Type Severity Reaction Status Date / Time buprenorphine [Belbuca] Allergy Intermediate Anaphylaxis Verified 10/21/22 12:23 Review of Systems Review of Systems: As per HPI. Yes all other systems are reviewed and are negative Constitutional: Constitutional: Reports as per HPI [facility] Past Medical History Medical History Back pain Cervical cancer Opiate abuse, episodic Osteoarthritis of both knees Osteopenia determined by x-ray Primary osteoarthritis of knees, bilateral Seropositive rheumatoid arthritis Surgical History History of appendectomy History of cholecystectomy History of D&C History of tonsillectomy Family History Family History Father Acute CVA (cerebrovascular accident) Mother Hypertension Hypercholesterolemia Brother Liver transplant status Family history of thyroid problem Social History Social History Household Members: Children Housing: House Are you a primary care transition coordinator to a significant other at home: Yes (mom) Do you presently have visiting nurse or other home services: No Alcohol intake: never Patient Tobacco Use Status: Former Tobacco user Quit Date: 2016 Tobacco use type: Cigarette e-Cigarette/Vaping Use: Never Used Second Hand Smoke Exposure: No Advance Directives: Yes Advance Directives on File: No service: No 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 Cognitive needs: No Hearing needs: No Vision needs: No Physical Exam ED Vital Signs: Vital Signs - 24 hr 10/21/22 12:23 10/21/22 15:12 Temperature 99.1 F 98.5 F Pulse Rate 82 67 Respiratory Rate 16 16 Blood Pressure 123/72 130/71 Pulse Oximetry 98 97 Oxygen Delivery Method Room Air Room Air BMI result Body Mass Index 19.6 Vital signs have been reviewed and appear to be correct. Blood pressure normal. Heart rate normal. Respiratory rate normal. Temperature normal. Oxygen saturation normal. Const General: cooperative, healthy appearing and no acute distress Orientation/consciousness: oriented to person, oriented to place, oriented to time and patient oriented x3 Limitations: no limitations HENMT Head: Yes normocephalic and Yes atraumatic Ears: external ears normal General nose exam: Normal external nose present Face and sinus: Yes face symmetric Mouth: oropharynx normal and moist mucous membranes Throat: Yes uvula midline Eyes Pupils: Equal, round and reactive pupils present Neck Neck: Yes normal visual inspection and Yes supple Resp Effort & Inspection: normal respiratory effort and able to speak in complete sentences Auscultation: clear to auscultation bilaterally Cardio Rate: regular rate Rhythm: regular rhythm Heart sounds: S1 normal heart sound present and S2 normal heart sound present GI Palpation (GI): Soft to palpation and nontender Auscultation: normoactive bowel sounds General: Yes no CVA tenderness Back/Spine/Pelvis Back: no CVA tenderness Skin General skin exam: elasticity normal and turgor normal Neuro General: oriented to person, oriented to place, oriented to time, patient oriented x3, moves all extremities, no focal motor deficits and CN's II-XI intact bilaterally Cranial nerves: Yes Equal, round and reactive pupils present Cognition (Neuro): normal cognition Extrem General: Yes full ROM, Yes no pedal edema and Yes no calf tenderness Psych Mental Status: mental status grossly normal Affect: normal affect Thought process: Normal thought process present Course Course Course Narrative: RME: 67 yold female with pmh of cervical CA 7 years ago and tumor between liver/kidney presents to the ED for hematuria, slight dysurya. patient denies any abdominal pain, nausea, flank pain, or vomitting. patient has had blood transfusions in the past. Basic labs ordered Medications Administered Discontinued Medications Generic Name Dose Route Start Last Admin Trade Name Joel PRN Reason Stop Dose Admin Lorazepam 1 mg 10/21/22 15:21 10/21/22 15:26 Lorazepam 1 Mg Tablet PO 10/21/22 15:22 1 mg ONCE ONE Administration Oxycodone HCl 5 mg 10/21/22 15:18 10/21/22 15:26 Oxycodone Hcl Immed Release 5 Mg Tablet PO 10/21/22 15:19 5 mg ONCE ONE Administration Medical Decision Making Medical Decision Making [facility] Narrative: Patient is a 67-year-old female with metastatic cervical cancer and poorly differentiated squamous cell carcinoma presenting to the emergency department with ongoing hematuria as well as pain due to her running out of her pain medications. On exam patient is awake, A+Ox3, VS WNL, afebrile, normal neurological exam without focal deficits, abdomen soft and nontender, no midline spinal tenderness. Given reported symptoms and physical exam findings, initial differential includes UTI/pyelonephritis, chronic pain, anemia. Do not suspect sepsis. Patient has history of anemia requiring transfusion. Labs notable for stable H&H, labs otherwise unchanged from baseline. UA positive for 3+ blood, consistent with prior UAs, only trace leukocytes, no nitrites, no bacteria. Review of EMR reveals note from PCP, Dr. Sanderson, from visit on 10/19/22 in which he states that he will continue patient on MS Contin 30 mg q.12 hours for now and will be weaning her oxycodone 5 mg every 6 hours down to 2.5 mg every 6 hours. Sent [place] Text to Dr. Sanderson to discuss without reply. According to [employer], no new prescriptions were picked up and when [facility] contacted, they state no prescriptions pending. Given that patient has been maintained on these medications for some time and her PCP note states he was going to continue patient on these medications, will prescribe 3 days worth of medications to allow patient time to contact her PCP regarding this. Instructed patient to call PCP first thing tomorrow morning to discuss pain medication prescriptions. Patient verbalized understanding of and agreement with plan. Differential Diagnosis Differential Diagnoses: The differential diagnosis associated with the presentation includes As per [facility]. Lab Data [facility] Lab Attestation statement: I reviewed the patient's lab results. As per [facility]. 10/21/22 12:43 10/21/22 12:43 Labs: Lab Results 10/21/22 10/21/22 10/21/22 Range/Units 12:43 12:43 12:43 WBC 7.8 (4.8-10.8) X10*3/uL RBC 4.56 (4.20-5.50) X10*6/uL Hgb 11.8 L (12.0-16.0) g/dl Hct 38.1 (37.0-47.0) % MCV 83.6 (80.0-98.0) fL MCH 25.9 L (27.0-33.0) pg MCHC 31.0 (31.0-35.0) g/dl RDW 15.7 (11.0-16.0) % Plt Count 406 H (160-400) X10*3/uL MPV 9.5 (9.4-12.3) fL Immature Gran % (Auto) 0.3 (0.0-0.4) % Neut % (Auto) 77.7 H (45-73) % Lymph % (Auto) 13.8 L (20-40) % [place] % (Auto) 7.3 (2-11) % Eos % (Auto) 0.5 (0-4) % Baso % (Auto) 0.4 (0-2) % Lymph # (Auto) 1.1 L (1.2-4.9) X10*3/uL [place] # (Auto) 0.6 (0.1-1.2) X10*3/uL Eos # (Auto) 0.0 (0.0-0.4) X10*3/uL Baso # (Auto) 0.0 (0.0-0.2) X10*3/uL Abs Immat Gran (auto) 0.02 (0.00-0.03) X10*3/uL Absolute Neuts (auto) 6.1 (2.0-8.3) x10*3/uL Absolute Nucleated RBC 0.000 (0.0-0.012) X10*3/uL Nucleated RBC % (auto) 0.0 (0.0-0.2) /100WBC PT 12.5 (11.1-13.3) SEC INR 1.0 (0.9-1.1) APTT 30.3 (26.0-36.4) SEC Sodium 140 (135-145) mmol/L Potassium 4.1 (3.3-5.1) mmol/L Chloride 106 (96-108) mmol/L Carbon Dioxide 26 (22-29) mmol/L Anion Gap 12 (12-20) BUN 13 (9-16) mg/dL Creatinine 0.72 (0.5-1.4) mg/dL Estim Creat Clear Calc 65.5 Estimated GFR > 60 Random Glucose 136 H (60-115) mg/dL Calcium 9.7 (8.4-10.2) mg/dL Total Bilirubin 0.3 (0.0-1.0) mg/dL AST 31 (5-31) U/L ALT 45 H (0-31) U/L Alkaline Phosphatase 145 H (39-117) U/L Total Protein 7.8 (6.5-8.0) g/dL Albumin 3.7 (3.5-5.0) g/dL Urine Color Urine Appearance Urine pH (5.0-9.0) Ur Specific [place] (1.005-1.025) Urine Protein (Neg-Trace) mg/dL Urine Glucose (UA) (Negative) mg/dL Urine Ketones (Negative) mg/dL Urine Blood (Negative) Urine Nitrite (Negative) Ur Leukocyte Esterase (Negative) Urine RBC (0-2) /HPF Urine WBC (0-5) /HPF Ur Squamous Epith Cells (0-2) /HPF Urine Bacteria (None Seen) Hyaline Casts (0-2) /LPF 10/21/22 Range/Units 14:52 WBC (4.8-10.8) X10*3/uL RBC (4.20-5.50) X10*6/uL Hgb (12.0-16.0) g/dl Hct (37.0-47.0) % MCV (80.0-98.0) fL MCH (27.0-33.0) pg MCHC (31.0-35.0) g/dl RDW (11.0-16.0) % Plt Count (160-400) X10*3/uL MPV (9.4-12.3) fL Immature Gran % (Auto) (0.0-0.4) % Neut % (Auto) (45-73) % Lymph % (Auto) (20-40) % [place] % (Auto) (2-11) % Eos % (Auto) (0-4) % Baso % (Auto) (0-2) % Lymph # (Auto) (1.2-4.9) X10*3/uL [place] # (Auto) (0.1-1.2) X10*3/uL Eos # (Auto) (0.0-0.4) X10*3/uL Baso # (Auto) (0.0-0.2) X10*3/uL Abs Immat Gran (auto) (0.00-0.03) X10*3/uL Absolute Neuts (auto) (2.0-8.3) x10*3/uL Absolute Nucleated RBC (0.0-0.012) X10*3/uL Nucleated RBC % (auto) (0.0-0.2) /100WBC PT (11.1-13.3) SEC INR (0.9-1.1) APTT (26.0-36.4) SEC Sodium (135-145) mmol/L Potassium (3.3-5.1) mmol/L Chloride (96-108) mmol/L Carbon Dioxide (22-29) mmol/L Anion Gap (12-20) BUN (9-16) mg/dL Creatinine (0.5-1.4) mg/dL Estim Creat Clear Calc Estimated GFR Random Glucose (60-115) mg/dL Calcium (8.4-10.2) mg/dL Total Bilirubin (0.0-1.0) mg/dL AST (5-31) U/L ALT (0-31) U/L Alkaline Phosphatase (39-117) U/L Total Protein (6.5-8.0) g/dL Albumin (3.5-5.0) g/dL Urine Color Yellow Urine Appearance Cloudy Urine pH 8.5 (5.0-9.0) Ur Specific [place] 1.025 (1.005-1.025) Urine Protein 30 (1+) H (Neg-Trace) mg/dL Urine Glucose (UA) Negative (Negative) mg/dL Urine Ketones Negative (Negative) mg/dL Urine Blood Large (3+) H (Negative) Urine Nitrite Negative (Negative) Ur Leukocyte Esterase Trace H (Negative) Urine RBC >20 H (0-2) /HPF Urine WBC 0-5 (0-5) /HPF Ur Squamous Epith Cells 0-2 (0-2) /HPF Urine Bacteria None Seen (None Seen) Hyaline Casts 0-2 (0-2) /LPF External Record Review External record reviewed: Inpatient record, Office record, Outpatient record and Primary care record Prescription Management I considered prescription management with: Pain Medication Chronic Conditions Patient?s care impacted by: Cancer Discharge Plan Discharge Clinical Impression: Chronic pain after cancer treatment, Hematuria Patient Disposition: Home, Self-Care Instructions: Chronic Pain (ED), Opioid Safety (ED) Additional Instructions: You are being prescribed a 3-day course of your prescription pain medication. IT IS CRITICAL THAT YOU CONTACT YOUR PRIMARY CARE PROVIDER, DR SANDERSON, TOMORROW MORNING TO DISCUSS YOUR PRESCRIPTIONS. Return to the emergency department if you develop burning with urination, new back or flank pain, fever 100.4 F or greater, or any other concerning symptoms. Prescriptions: New oxycodone 5 mg tablet 2.5 mg PO Q6H PRN (Reason: pain) Qty: 6 0RF Rx Instructions: Partial Fill upon patient request. morphine 30 mg tablet extended release 30 mg PO Q12H Qty: 6 0RF Rx Instructions: Partial Fill upon patient request. No Action Ensure Liquid 1 ea PO DAILY 90 Days Qty: 49955 3RF Rx Instructions: [place] Rob. alendronate 70 mg tablet 70 mg PO QWEEK Qty: 12 1RF (DME) [employer] Adult Brief Misc See Rx Instructions .Route Qty: 60 2RF Rx Instructions: 2 daily As directed, 30 days lorazepam 1 mg tablet See Rx Instructions PO BID PRN (Reason: anxiety) 30 Days Qty: 120 0RF Rx Instructions: 1mg to 2mg orally 2 times a day PRN; MassPat verified. Partial refill upon request. meclizine 12.5 mg tablet 12.5 mg PO DAILY PRN (Reason: dizziness) 30 Days Qty: 14 0RF ondansetron 8 mg tablet,disintegrating 8 mg PO Q8H PRN (Reason: nausea) 3RF gabapentin 600 mg tablet 600 mg PO DAILY 30 Days Qty: 30 1RF ferrous sulfate 325 mg (65 mg iron) Tablet 325 mg PO BID Qty: 60 3RF oxycodone 5 mg Tablet 5 mg PO Q6H PRN (Reason: Pain) Qty: 60 0RF Rx Instructions: Partial Fill upon patient request. morphine [MS Contin] 30 mg Tablet Extended Release 30 mg PO Q12H Qty: 60 0RF Rx Instructions: Partial Fill upon patient request. (DME) cane Device See Rx Instructions .Route Qty: 1 0RF Rx Instructions: As directed omeprazole 20 mg capsule,delayed release(DR/EC) 20 mg PO DAILY (DME) Ultra-Light Rollator Misc See Rx Instructions .Route Qty: 1 0RF Rx Instructions: Rollator walker with seat and brakes. Daily as directed. 999 days naproxen 500 mg tablet 500 mg PO BID PRN (Reason: pain) 30 Days Qty: 60 0RF lorazepam 0.5 mg tablet 2 mg PO BID PRN (Reason: anxiety) 15 Days Qty: 120 0RF Rx Instructions: Temporary script as 1 mg tabs are on back order clotrimazole 1 % cream 1 appful vaginal BEDTIME 7 Days Qty: 45 1RF sertraline 50 mg tablet 75 mg PO DAILY 90 Days Qty: 135 3RF Interventions: ED Discharge Assessment Last Done: 10/21/22 15:43 Discharge Date/Time: 10/21/22 15:44
[2022-10-21 12:51] LABS: MANUAL DIFF FLAG NO
[2022-10-21 12:59] LABS: Basophils Percent Auto 0.4 % (0-2); Eosinophils Percent Auto 0.5 % (0-4); Hematocrit 38.1 % (37.0-47.0); Hemoglobin 11.8 g/dl (12.0-16.0); Imm Gran Abs Auto 0.02 X10*3/uL (0.00-0.03); Imm Gran Pct Auto 0.3 % (0.0-0.4); Lymphocytes Absolute Auto 1.1 X10*3/uL (1.2-4.9); Lymphocytes Percent Auto 13.8 % (20-40); Mean Corpuscular Hemoglobin 25.9 pg (27.0-33.0); Mean Corpuscular Volume 83.6 fL (80.0-98.0); Mean Platelet Volume 9.5 fL (9.4-12.3); Monocytes Absolute Auto 0.6 X10*3/uL (0.1-1.2); Monocytes Percent Auto 7.3 % (2-11); Neutrophils Absolute Auto 6.1 x10*3/uL (2.0-8.3); Neutrophils Percent Auto 77.7 % (45-73); Platelet Count 406 X10*3/uL (160-400); Red Blood Count 4.56 X10*6/uL (4.20-5.50); Red Cell Distribution Width 15.7 % (11.0-16.0); White Blood Count 7.8 X10*3/uL (4.8-10.8)
[2022-10-21 13:05] LABS: Prothrombin Time 12.5 SEC (11.1-13.3)
[2022-10-21 13:08] LABS: Partial Thromboplastin Time 30.3 SEC (26.0-36.4)
[2022-10-21 13:09] LABS: Alanine Aminotransferase 45 U/L (0-31); Albumin Level 3.7 g/dL (3.5-5.0); Alkaline Phosphatase 145 U/L (39-117); Anion Gap 12 (12-20); Aspartate Amino Transferase 31 U/L (5-31); Bilirubin Total 0.3 mg/dL (0.0-1.0); Blood Urea Nitrogen 13 mg/dL (9-16); Calcium 9.7 mg/dL (8.4-10.2); Carbon Dioxide 26 mmol/L (22-29); Chloride 106 mmol/L (96-108); Creatinine Clr Calc Pharmacy 65.5; Estimated Glomerular Filt Rate > 60; Glucose Random 136 mg/dL (60-115); Potassium 4.1 mmol/L (3.3-5.1); Sodium 140 mmol/L (135-145); Total Protein 7.8 g/dL (6.5-8.0)
[2022-10-21 15:03] LABS: Appearance Urine Cloudy; Color Urine Yellow; Glucose Urine UA Negative (Negative); Leukocyte Esterase Urine Trace (Negative); Nitrite Urine Negative (Negative); PH 8.5 (5.0-9.0); Specific Gravity - Urine 1.025 (1.005-1.025); UMIC TRIGGER UACC YES; Urine Blood Large (3+) (Negative); Urine Ketones Negative (Negative); Urine Protein 30 (1+) mg/dL (Neg-Trace)
[2022-10-21 15:05] LABS: Bacteria Urine None Seen (None Seen); Hyaline Casts Urine 0-2 /LPF (0-2); RBC Urine >20 /HPF (0-2); Squamous Epithelial Cell Urine 0-2 /HPF (0-2); WBC Urine 0-5 /HPF (0-5)
[2022-10-21 15:12] VITALS: BP 130/71; PULSE 67; RESP 16; TEMP 36.9; O2SAT 97
[2022-10-21] MEDS: LORazepam 1 MG TABLET PO (15:26)
[2022-10-21] MEDS: oxyCODONE HCl Immed Release 5 MG TABLET PO (15:26)
--- NOTE | 2022-10-21 15:33 | PC.NURSE ---
pt medicated per MAR
== END 2022-10-21 15:44 | disposition home or self-care (01) ==
PROVIDERS: Physician Assistant; Emergency Provider Emergency Medicine Emergency Medical Services; PCP Family Medicine
DX: G89.3 Neoplasm related pain (acute) (chronic) (principal); R31.9 Hematuria, unspecified; Z87.891 Personal history of nicotine dependence; Z79.899 Other long term (current) drug therapy
CPT/HCPCS: 36415; 80053; 81001; 81003; 85025; 85610; 85730; 99284

== ENCOUNTER 2022-10-30 10:35 | Outpatient (AMB) | payer MEDICARE, MEDICAID, SELFPAY ==
--- NOTE | 2022-10-30 11:04 | MHC.OFFVIS ---
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 At her last visit 2 and a half months ago she was contemplating going on hospice care because she had metastatic cancer. She had received a round of chemotherapy which she thought was a miserable experience and did want to proceed any further. Since then she has been managing her pain it sounds like with narcotics. She takes the prednisone on as-needed basis. 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 Areas of pain include the hands, wrists, knees, ankles, and feet. She has barely been able to walk. She also has a significant anxiety disorder and is taking lorazepam. She seems unclear as to the status of her cancer. She asked me if she was going to soon and also wanted to know if the cancer had disappeared. Her daughter had brought her here today but had to leave as they arrived an hour late. She was in the ER recently when her narcotics were cut back. Apparently now they been reinstituted at a lower dose. [facility] Medical History Back pain Cervical cancer Opiate abuse, episodic Osteoarthritis of both knees Osteopenia determined by x-ray Primary osteoarthritis of knees, bilateral Seropositive rheumatoid arthritis Surgical History History of appendectomy History of cholecystectomy History of D&C History of tonsillectomy Family History Father Acute CVA (cerebrovascular accident) Mother Hypertension Hypercholesterolemia Brother Liver transplant status Family history of thyroid problem Social History Household Members: Children Housing: House Are you a primary career development director to a significant other at home: Yes (mom) Do you presently have visiting nurse or other home services: No Alcohol intake: never Patient Tobacco Use Status: Former Tobacco user Quit Date: 2016 Tobacco use type: Cigarette e-Cigarette/Vaping Use: Never Used Second Hand Smoke Exposure: No service: No 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 Cognitive needs: No Hearing needs: No Vision needs: No Review of Systems Const Details: Negative for appetite change, weight change, fever, chills, malaise and fatigue Card Details: Negative chest pain, edema and syncope Resp Details: Negative for SOB, cough and wheezing GI Details: Negative indigestion/heartburn, nausea, abdominal pain, bowel changes, diarrhea, constipation and bloody stool. Details: Occasionally she see some hematuria. Negative for dysuria, nocturia, decreased force/flow and genital discharge Psych Details: Negative for anxiety, depression and stress Andrew/Lymph Details: Negative for excessive bruising or bleeding. Physical Exam Vital Signs: Last Vital Signs Temp 97.5 F 10/30/22 11:06 Pulse 73 10/30/22 11:06 BP 102/66 10/30/22 11:06 BMI result Body Mass Index 20.3 APPEARANCE: Patient appears anxious. EYES no redness, pupils equal and reactive to light, eyelids normal EXTREMITIES: No edema, no calf tenderness, normal peripheral pulses. JOINT EXAM:?? Cervical Spine:.? Full range of motion without pain; no tenderness. Thoracic Spine:.? No scoliosis.? No tenderness on palpation. Lumbar Spine:.? Alignment normal.?? mild pain with extremes of motion.? No tenderness. Chest Wall:.? No tenderness, swelling, increased warmth or erythema. Hands:? right:? There is swelling of all the MCP joints, the 1st 3 are moderately tender.? There is thickening of the 2nd 3rd PIP joints with slight tenderness.? There is pain with firm gripping of the hands.? Left:? There is qkdy-vq-zkpeeyhj swelling and tenderness of the 1st 3 MCPs and the 2nd through 4th PIP joints.? There is pain with use of the hand.? Wrists:?? Both wrists have mild to moderate swelling, moderate tenderness and pain with more than? 45 degrees flexion extension.? No redness or warmth. Elbows. Normal pain-free range of motion without tenderness, swelling, increased warmth or erythema. Shoulders:.?? Full range of motion without pain. No tenderness, weakness, swelling, increased warmth or erythema. Hips:.? Full range of motion without pain. Hip bursa:.? No tenderness. Knees: ? Right:? Mild to moderate pain with full? attempts at full extension.? She lacks about 10 degrees of full extension there is pain with flexion beyond 90 degrees.? There is a moderate effusion with some synovial thickening, oeml-du-xcbcdgpy tenderness but no redness or warmth.? Left:? Moderate pain with more than 20 degrees flexion or extension.? This knee also has 10 degree flexion contracture and she can barely flex to 90 degrees.? There is a moderate effusion, a bit larger than on the right. She has moderate synovial thickening of xxrc-wc-ftrxhfun tenderness but no redness or warmth. Ankles:?? With mild pain at the extremes of motion and some moderate tenderness with slight swelling but no increased warmth or erythema. Feet:? Normal pain-free range of motion. This would 1st MTP bony enlargement there are not tender. In general the toes in the MTPs are without, swelling, increased warmth or erythema. ? Office Procedures Joint Injection/Drain Joint Injection/Drain Primary Site: left knee Secondary Site: right knee Injected: 80 mg of, Kenalog, with 1 mL of and 1% plain lidocaine Coding Details: With the patient's consent the left knee was prepped with ChloraPrep and alcohol. The skin was anesthetized with 2 cc of 1% lidocaine. The knee was then injected with 40 mg of triamcinolone and 1 cc of I % lidocaine. The patient tolerated the procedure with no immediate adverse effects. With the patient's consent the right knee was prepped with ChloraPrep and alcohol. The skin was anesthetized with 2 cc of 1% lidocaine. The knee was then injected with 40 mg of triamcinolone and 1 cc of I % lidocaine. The patient tolerated the procedure with no immediate adverse effects. - Large joint Procedure code (CPT) selection complete Assessment & Plan Assessment & Plan (1) Seropositive rheumatoid arthritis: Comment: Enbrel 10/2018- failed 2021, changed to Humira - stopped 03/01 due to metastatic disease Code(s): M05.9 - Rheumatoid arthritis with rheumatoid factor, unspecified Plan She remains with polyarticular, active rheumatoid arthritis. Her strategy of taking the prednisone on episodic basis probably leads to more misery since she has than a significant flare-up when she stops the prednisone. I explained that we were not going to get complete pain control with prednisone but that the inflammation should back off a bit so that she would not be as uncomfortable. I do not think she is a candidate for DMARDs given her multiple other problems particularly her possibility of getting infected from mucosal injuries from her cancer. She would be at increased risk of infection anyway on immunosuppressive agents such as TNF inhibitors or methotrexate. Additionally if she were to go on another course of chemotherapy there might be significant interactions with small molecule immunomodulators. So today I recommended bilateral knee injections followed by prednisone at 5 mg b.i.d.. I explained the potential for some facial flushing with 2 injections in the same day but I think it would enable her to require less dependence on narcotic analgesics. With the patient's consent the left knee was prepped with ChloraPrep and alcohol. The skin was anesthetized with 2 cc of 1% lidocaine. The knee was then injected with 40 mg of triamcinolone and 1 cc of I % lidocaine. With the patient's consent the right knee was prepped with ChloraPrep and alcohol. The skin was anesthetized with 2 cc of 1% lidocaine. The knee was then injected with 40 mg of triamcinolone and 1 cc of I % lidocaine. The patient tolerated the procedures with no immediate adverse effects. She is to take it easy today. If she gets some facial flushing I told her to not the panic as that was a side effect and subsides in a day or 2. We could probably increase the prednisone a bit more if need be but I think she will do fine at 5 mg twice a day. I could also see her back for another set of injections if needed in about 3 months. Orders: Orders AMB Joint Injection/Aspiration Today M05.9 - Rheumatoid arthritis with rheumatoid factor, unspecified Medications: New prednisone 5 mg PO BID 60 tabs 3RF M05.9 - Rheumatoid arthritis with rheumatoid factor, unspecified Discontinued oxycodone Partial Fill upon patient request. 5 mg PO Q6H PRN 60 tabs 0RF Pain morphine ER Partial Fill upon patient request. 30 mg PO Q12H 60 tabs 0RF oxycodone Partial Fill upon patient request. 5 mg PO Q6H PRN 60 tabs 0RF Pain morphine ER Partial Fill upon patient request. 30 mg PO Q12H 60 tabs 0RF oxycodone Partial Fill upon patient request. 5 mg PO Q6H PRN 60 tabs 0RF Pain morphine ER Partial Fill upon patient request. 30 mg PO Q12H 60 tabs 0RF oxycodone Partial Fill upon patient request. 5 mg PO Q6H PRN 60 tabs 0RF Pain morphine ER Partial Fill upon patient request. 30 mg PO Q12H 60 tabs 0RF oxycodone Partial Fill upon patient request. 5 mg PO Q6H PRN 60 tabs 0RF Pain oxycodone Partial Fill upon patient request. 5 mg PO Q6H PRN 60 tabs 0RF Pain oxycodone Partial Fill upon patient request. 5 mg PO Q6H PRN 60 tabs 0RF Pain oxycodone Partial Fill upon patient request. 5 mg PO Q6H PRN 60 tabs 0RF Pain morphine ER Partial Fill upon patient request. 30 mg PO Q12H 60 tabs 0RF oxycodone Partial Fill upon patient request. 5 mg PO Q6H PRN 60 tabs 0RF Pain oxycodone Partial Fill upon patient request. 5 mg PO Q6H PRN 60 tabs 0RF Pain Coding Level of Care Code Est Pt Level 3 (94612) Diagnoses Seropositive rheumatoid arthritis M05.9 CPT Codes Coding - Large joint: 15383 - Large joint ([id number])
[2022-10-30 11:06] VITALS: BP 102/66; PULSE 73; TEMP 36.4; BMI 20.3
== END 2022-10-30 13:26 | disposition home or self-care (01) ==
LOC: HO.RHE 10:35
PROVIDERS: PCP Family Medicine; Visit Provider Internal Medicine Rheumatology
DX: M05.79 Rheumatoid arthritis with rheumatoid factor of multiple sites without organ or systems involvement (principal)
CPT/HCPCS: 20610; 99213

== ENCOUNTER → 2022-10-30 10:35 | Outpatient (BNVA) | payer MEDICARE, MEDICAID, SELFPAY | PROVIDERS: PCP Family Medicine; Visit Provider Internal Medicine Rheumatology | DX: M05.9 Rheumatoid arthritis with rheumatoid factor, unspecified (principal) | CPT/HCPCS: 20610; 99212 ==

== ENCOUNTER 2022-11-09 09:16 | Outpatient (AMB) | payer MEDICARE, SELFPAY ==
[2022-11-09 09:42] VITALS: BP 100/64; PULSE 67; O2SAT 97; BMI 20.5
--- NOTE | 2022-11-09 09:42 | MHC.PC.OV ---
Vital Signs 11/09/22 09:42 Height 5 ft 5 in Weight 123 lb BMI 20.5 BP 100/64 Blood Pressure Location Lt brachial Position Sitting Pulse 67 Pulse Source Pulse Oximeter Pulse Oximetry (%) 97 Oxygen Delivery Method Room Air Intake Visit Reasons: [facility], Blood in urine, 10/21 Intake Note: Patient is here to follow up on blood in urine. Allergies buprenorphine [Belbuca] Allergy (Intermediate, Verified 11/09/22 09:44) Anaphylaxis Tobacco use date assessed: 11/09/22 Fall risk assessment: 2 + Falls in past year Last assessed Fall Risk: 11/09/22 Dental Screening Dental Screen Date: 11/09/22 Did you have a dental visit in the last 12 months?: Yes Did you have a dental problem in the last 6 months where you did not have access to dental care?: No Was dental information given to patient?: Patient has dentist HPI [facility], Blood in urine, 10/21 HPI Details 67 y/o female presents to f/u [facility] visit 10/21/22 for hematuria/pain due to running out of her pain medications. Was prescribed a 3-day course of prescription pain meds Most recent labs 11/09/22 shows no hematuria. Had seen rheumatology 10/30/22 and had been prescribed prednisone b.i.d. for her rheumatoid arthritis [facility] Medical History Back pain Cervical cancer Opiate abuse, episodic Osteoarthritis of both knees Osteopenia determined by x-ray Primary osteoarthritis of knees, bilateral Seropositive rheumatoid arthritis Surgical History History of appendectomy History of cholecystectomy History of D&C History of tonsillectomy Family History Father Acute CVA (cerebrovascular accident) Mother Hypertension Hypercholesterolemia Brother Liver transplant status Family history of thyroid problem Social History Household Members: Children Housing: House Are you a primary care coordination manager to a significant other at home: Yes (mom) Do you presently have visiting nurse or other home services: No Alcohol intake: never Patient Tobacco Use Status: Former Tobacco user Quit Date: 2016 Tobacco use type: Cigarette e-Cigarette/Vaping Use: Never Used Second Hand Smoke Exposure: No service: No 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 Cognitive needs: No Hearing needs: No Vision needs: No Questionnaire Thrive Questionnaire Date Thrive assessed: 08/18/21 STEPHIE-7 AMB Questionnaire STEPHIE-7 Date STEPHIE - 7 assessed: 10/19/22 Source: Developed by Drs. Kevin Kenney, Joanie Swan, Marino Medina and colleagues, with an educational july from [employer]. Review of Systems Const Denies chills, Denies fatigue, Denies fever(s), Denies headache(s) and Denies weakness ENT Denies dizziness and Denies headache(s) Card Denies dyspnea Resp Denies cough, Denies dyspnea, Denies wheezing and Denies other (shortness of breath) Musc Denies numbness and Denies tingling Neuro Denies dizziness, Denies headache(s), Denies numbness, Denies tingling and Denies weakness Psych Denies anxiety and Denies depression Endo Denies fatigue Aller/Immun Denies wheezing Physical exam (Primary Care) Vital Signs: Last Vital Signs Pulse 67 11/09/22 09:42 BP 100/64 11/09/22 09:42 Pulse Ox 97 11/09/22 09:42 Oxygen Delivery Method Room Air 11/09/22 09:42 BMI result Body Mass Index 20.5 Tobacco/Smoking Status: Tobacco use Status Tobacco use date assessed 11/09/22 11/09/22 09:50 Patient Tobacco Use Status Former Tobacco user 11/09/22 09:50 Tobacco use type Cigarette 11/09/22 09:50 e-Cigarette/Vaping Use Never Used 11/09/22 09:50 Thrive Assessment: Date of Thrive Assessment Date Thrive assessed 08/18/21 11/09/22 09:50 Const General: well developed; No acute distress Nutritional Appearance: well nourished Orientation/consciousness: patient oriented x3 HENMT Head: Yes normocephalic and Yes atraumatic Eyes General: appearance normal, both eyes and all related structures Pupils: Equal, round and reactive pupils present EOM: EOMs intact bilaterally Resp Effort & Inspection: normal respiratory effort Auscultation: clear to auscultation bilaterally Cardio Rate: regular rate Rhythm: regular rhythm Heart sounds: S1 normal heart sound present, S2 normal heart sound present, no gallops, no murmurs and no rubs Neuro General: patient oriented x3 and gait normal Cranial nerves: Yes Equal, round and reactive pupils present Psych Affect: normal affect Results AMB Urinalysis Dipstick UR Leukocytes Negative Last Edit by Alina Collins CMA on 11/09/22 09:55 UR Nitrite Negative Last Edit by Alina Collins CMA on 11/09/22 09:55 UR Urobilinogen Normal Last Edit by Alina Collins, ERIN on 11/09/22 09:55 UR Protein Negative Last Edit by Alina Collins, ERIN on 11/09/22 09:55 UR Ph 7.5 Last Edit by Alina Collins, ERIN on 11/09/22 09:55 UR Blood Negative Last Edit by Alina Collins, ERIN on 11/09/22 09:55 UR Specific [place] 1.015 Last Edit by Alina Collins CMA on 11/09/22 09:55 UR Ketone Negative Last Edit by Alina Collins CMA on 11/09/22 09:55 UR Bilirubin Negative Last Edit by Alina Collins CMA on 11/09/22 09:55 UR Glucose Negative Last Edit by Alina Collins CMA on 11/09/22 09:55 Results Reviewed Results Reviewed: Laboratory Last Values Urine pH (Clinic) 7.5 11/09/22 09:52 Specific [place] (Clinic) 1.015 11/09/22 09:52 Ur Protein (Clinic) Negative 11/09/22 09:52 Ur Ketones (Clinic) Negative 11/09/22 09:52 Urine Blood (Clinic) Negative 11/09/22 09:52 Urine Nitrite Negative 11/09/22 09:52 Urine Bilirubin (Clinic) Negative 11/09/22 09:52 Urobilinogen (Clinic) Normal 11/09/22 09:52 Leukocyte Esterase (Clinic) Negative 11/09/22 09:52 Urine Glucose (Clinic) Negative 11/09/22 09:52 Assessment and Plan Assessment & Plan (1) Hematuria: Code(s): R31.9 - Hematuria, unspecified Plan: Patient had had some vaginal bleeding or blood in urine previously Patient had gone to the ED with complaints of blood in urine. Urinalysis at that time was negative for blood in urine and urine dip today negative for blood in urine. Reassured patient (2) Chronic, continuous use of opioids: Code(s): F11.90 - Opioid use, unspecified, uncomplicated Plan: Working on weaning down patient's opioid medications. Have as some difficulty with logistics of this and she is scheduled for her next appointment after her next refill. Will have appointment scheduled prior to her next refill so we can hopefully keep her medication adjustments smooth. (3) Seropositive rheumatoid arthritis: Code(s): M05.9 - Rheumatoid arthritis with rheumatoid factor, unspecified Plan: Now followed by Dr. Vargas He has recommended low-dose prednisone on a scheduled basis and joint injections. Orders: Orders AMB Urinalysis Dipstick Today R30.0 - Dysuria Medications: Refilled lorazepam 1mg to 2mg orally 2 times a day PRN; MassPat verified. Partial refill upon request. 30 days 120 tabs 0RF anxiety F41.8 - Other specified anxiety disorders Discontinued oxycodone Partial Fill upon patient request. 5 mg PO Q6H PRN 60 tabs 0RF Pain morphine ER Partial Fill upon patient request. 30 mg PO Q12H 60 tabs 0RF oxycodone Partial Fill upon patient request. 5 mg PO Q6H PRN 60 tabs 0RF Pain morphine ER Partial Fill upon patient request. 30 mg PO Q12H 60 tabs 0RF oxycodone Partial Fill upon patient request. 5 mg PO Q6H PRN 60 tabs 0RF Pain morphine ER Partial Fill upon patient request. 30 mg PO Q12H 60 tabs 0RF oxycodone Partial Fill upon patient request. 5 mg PO Q6H PRN 60 tabs 0RF Pain morphine ER Partial Fill upon patient request. 30 mg PO Q12H 60 tabs 0RF oxycodone Partial Fill upon patient request. 5 mg PO Q6H PRN 60 tabs 0RF Pain oxycodone Partial Fill upon patient request. 5 mg PO Q6H PRN 60 tabs 0RF Pain oxycodone Partial Fill upon patient request. 5 mg PO Q6H PRN 60 tabs 0RF Pain oxycodone Partial Fill upon patient request. 5 mg PO Q6H PRN 60 tabs 0RF Pain morphine ER Partial Fill upon patient request. 30 mg PO Q12H 60 tabs 0RF oxycodone Partial Fill upon patient request. 5 mg PO Q6H PRN 60 tabs 0RF Pain oxycodone Partial Fill upon patient request. 5 mg PO Q6H PRN 60 tabs 0RF Pain oxycodone Partial Fill upon patient request. Discontinued Reason: Doctor's Order 5 mg PO Q6H PRN 60 tabs 0RF Pain Coding Level of Care Code Est Pt Level 3 (25423) Diagnoses Hematuria R31.9 Chronic, continuous use of opioids F11.90 Seropositive rheumatoid arthritis M05.9
== END 2022-11-09 10:33 | disposition home or self-care (01) ==
PROVIDERS: PCP Family Medicine; Visit Provider Family Medicine
DX: R31.9 Hematuria, unspecified (principal); F11.90 Opioid use, unspecified, uncomplicated; M05.9 Rheumatoid arthritis with rheumatoid factor, unspecified; R30.0 Dysuria
CPT/HCPCS: 81002; 99213

== ENCOUNTER 2022-11-17 17:48 | Emergency (ER) | payer MEDICARE, SELFPAY ==
--- NOTE | ~2022-11-17 | CT_ITS ---
EXAMINATION: CT ABDOMEN AND PELVIS WITH CONTRAST CLINICAL INFORMATION: Abdominal pain. COMPARISON: 05/30/2022 TECHNIQUE: Multidetector volumetric images were obtained from the superior aspect of the liver through the pubic symphysis following administration 85 mL of Omnipaque 350 intravenous contrast. Sagittal and coronal reformatted images were obtained on the technologist's workstation. Oral contrast: No This CT examination was performed using dose optimization techniques as appropriate, variously including the following: *Automated exposure control *Adjustment of mA and/or kV according to patient size (this includes techniques or standardized protocols for targeted exams where dose is matched to indication/reason for exam; i.e. extremities or head) *Use of iterative reconstruction technique DLP: 372 mGy-cm FINDINGS: LUNG BASES: The visualized lung bases are unremarkable. LIVER, GALLBLADDER, AND BILIARY TREE: The liver is normal in size and attenuation. No focal liver lesions are seen. There is mild intrahepatic biliary duct dilatation. There has been a prior cholecystectomy. The common bile duct measures up to 1.3 cm. PANCREAS: Unremarkable. SPLEEN: Unremarkable. ADRENAL GLANDS: Right adrenal calcifications and enlargement is again seen. KIDNEYS AND URETERS: The kidneys are normal in size, shape, and attenuation. No hydronephrosis, hydroureter, or calculi seen. No perinephric stranding. BLADDER: There is urinary bladder wall thickening. GASTROINTESTINAL TRACT: There is retained stool. There is rectosigmoid thickening. The appendix is not confidently seen as a separate structure. ABDOMINAL WALL: No significant hernia is appreciated. LYMPH NODES: Normal. VASCULAR: There is mild atherosclerotic plaque of the abdominal aorta. PELVIC VISCERA: Unremarkable. OSSEOUS STRUCTURES: There is mild curvature of the lumbar spine to the right. There is moderate L3-L4 and L4-L5 disc degenerative change with large posterior osteophyte at L3-L4 resulting in severe spinal canal narrowing. CT/CT abdomen pelvis w IV con IMPRESSION: Rectosigmoid thickening suggesting proctocolitis. Urinary bladder wall thickening needs correlation with urinalysis. Patient is status post cholecystectomy with common bile duct and intrahepatic biliary duct dilatation. Fleischner guidelines were followed.
[2022-11-17 19:12] VITALS: BP 128/76; PULSE 79; RESP 18; TEMP 37; O2SAT 97
--- NOTE | 2022-11-17 19:15 | ED.GENADULT ---
HPI - General Adult General Stated complaint: Blood in urine Related Data Home Medications Medication Instructions Recorded Confirmed omeprazole 20 mg capsule,delayed 20 mg PO DAILY 08/01/22 10/19/22 release Previous Rx's Medication Instructions Recorded cane #1 ea 08/18/21 sertraline 50 mg tablet 75 mg (1.5 x 50 mg) PO DAILY 90 06/29/22 days #135 tabs clotrimazole 1 % vaginal cream 1 appful vaginal BEDTIME 7 days 07/10/22 #45 grams food supplemt, lactose-reduced 1 ea PO DAILY 90 days #21,330 mL 07/12/22 (Ensure oral liquid) ferrous sulfate 325 mg (65 mg 325 mg PO BID #60 tabs 08/09/22 iron) tablet alendronate 70 mg tablet 70 mg PO QWEEK #12 tabs 08/22/22 walker (Ultra-Light Rollator misc) #1 ea 08/31/22 diaper,brief,adult,disposable #60 ea 09/13/22 ([employer] Adult Brief) ondansetron 8 mg disintegrating 8 mg PO Q8H PRN nausea 10/08/22 tablet morphine 30 mg tablet,extended 30 mg PO Q12H #60 tabs 10/22/22 release (MS Contin) oxycodone 5 mg tablet 2.5 mg (1/2 x 5 mg) PO Q6H PRN 10/22/22 pain 30 days #60 tabs prednisone 5 mg tablet 5 mg PO BID #60 tabs 10/30/22 meclizine 12.5 mg tablet 12.5 mg PO DAILY PRN dizziness 30 11/06/22 days #14 tabs gabapentin 600 mg tablet 600 mg PO DAILY 30 days #30 tabs 11/09/22 lorazepam 1 mg tablet See Rx Instructions PO BID PRN 11/09/22 anxiety 30 days #120 tabs Allergies Allergy/AdvReac Type Severity Reaction Status Date / Time buprenorphine [Belbuca] Allergy Intermediate Anaphylaxis Verified 11/17/22 19:11 [facility] Past Medical History Medical History Back pain Cervical cancer Opiate abuse, episodic Osteoarthritis of both knees Osteopenia determined by x-ray Primary osteoarthritis of knees, bilateral Seropositive rheumatoid arthritis Surgical History History of appendectomy History of cholecystectomy History of D&C History of tonsillectomy Family History Family History Father Acute CVA (cerebrovascular accident) Mother Hypertension Hypercholesterolemia Brother Liver transplant status Family history of thyroid problem Social History Social History Household Members: Children Housing: House Are you a primary neurocritical care physician to a significant other at home: Yes (mom) Do you presently have visiting nurse or other home services: No Alcohol intake: never Patient Tobacco Use Status: Former Tobacco user Quit Date: 2016 Tobacco use type: Cigarette e-Cigarette/Vaping Use: Never Used Second Hand Smoke Exposure: No service: No 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 Cognitive needs: No Hearing needs: No Vision needs: No Course Course Course Narrative: Chronic pain patient with a cervical cancer diagnosis and metastases sees [facility] and pain management here complains of her whole body hurts and she is out of oxycodone She also complains of blood in the urine which has been going on for a long time and she says there has been an increase in the blood over last 2 days Urinalysis chemistry and CBC are ordered This is rapid medical exam in triage pending full evaluation by provider in the emergency room for full history and physical, review of all results and disposition Discharge Plan Discharge Prescriptions: No Action Ensure Liquid 1 ea PO DAILY 90 Days Qty: 42384 3RF Rx Instructions: Pushpa Rob. alendronate 70 mg tablet 70 mg PO QWEEK Qty: 12 1RF (DME) [employer] Adult Brief Misc See Rx Instructions .Route Qty: 60 2RF Rx Instructions: 2 daily As directed, 30 days ondansetron 8 mg tablet,disintegrating 8 mg PO Q8H PRN (Reason: nausea) 3RF meclizine 12.5 mg tablet 12.5 mg PO DAILY PRN (Reason: dizziness) 30 Days Qty: 14 0RF gabapentin 600 mg tablet 600 mg PO DAILY 30 Days Qty: 30 1RF ferrous sulfate 325 mg (65 mg iron) Tablet 325 mg PO BID Qty: 60 3RF (DME) cane Device See Rx Instructions .Route Qty: 1 0RF Rx Instructions: As directed omeprazole 20 mg capsule,delayed release(DR/EC) 20 mg PO DAILY (DME) Ultra-Light Rollator Misc See Rx Instructions .Route Qty: 1 0RF Rx Instructions: Rollator walker with seat and brakes. Daily as directed. 999 days oxycodone 5 mg tablet 2.5 mg PO Q6H PRN (Reason: pain) 30 Days Qty: 60 0RF Rx Instructions: Partial Fill upon patient request. morphine [MS Contin] 30 mg tablet extended release 30 mg PO Q12H Qty: 60 0RF Rx Instructions: Partial Fill upon patient request. clotrimazole 1 % cream 1 appful vaginal BEDTIME 7 Days Qty: 45 1RF sertraline 50 mg tablet 75 mg PO DAILY 90 Days Qty: 135 3RF lorazepam 1 mg tablet See Rx Instructions PO BID PRN (Reason: anxiety) 30 Days Qty: 120 0RF Rx Instructions: 1mg to 2mg orally 2 times a day PRN; MassPat verified. Partial refill upon request. prednisone 5 mg tablet 5 mg PO BID Qty: 60 3RF
[2022-11-17 19:37] LABS: MANUAL DIFF FLAG NO
[2022-11-17 19:39] LABS: Basophils Percent Auto 0.2 % (0-2); Hematocrit 37.9 % (37.0-47.0); Hemoglobin 12.5 g/dl (12.0-16.0); Imm Gran Abs Auto 0.02 X10*3/uL (0.00-0.03); Imm Gran Pct Auto 0.2 % (0.0-0.4); Lymphocytes Absolute Auto 0.8 X10*3/uL (1.2-4.9); Lymphocytes Percent Auto 9.5 % (20-40); Mean Corpuscular Hemoglobin 27.7 pg (27.0-33.0); Mean Corpuscular Volume 83.8 fL (80.0-98.0); Mean Platelet Volume 10.5 fL (9.4-12.3); Monocytes Absolute Auto 0.3 X10*3/uL (0.1-1.2); Monocytes Percent Auto 3.2 % (2-11); Neutrophils Absolute Auto 7.7 x10*3/uL (2.0-8.3); Neutrophils Percent Auto 86.9 % (45-73); Platelet Count 304 X10*3/uL (160-400); Red Blood Count 4.52 X10*6/uL (4.20-5.50); Red Cell Distribution Width 17.8 % (11.0-16.0); White Blood Count 8.8 X10*3/uL (4.8-10.8)
[2022-11-17 19:47] LABS: Appearance Urine Clear; Color Urine Yellow; Glucose Urine UA Negative (Negative); Leukocyte Esterase Urine Trace (Negative); Nitrite Urine Negative (Negative); PH 7.5 (5.0-9.0); Specific Gravity - Urine >= 1.030 (1.005-1.025); UMIC TRIGGER UACC YES; Urine Blood Large (3+) (Negative); Urine Ketones Negative (Negative); Urine Protein Trace mg/dL (Neg-Trace)
[2022-11-17 19:54] LABS: Anion Gap 14 (12-20); Blood Urea Nitrogen 29 mg/dL (9-16); Calcium 10.2 mg/dL (8.4-10.2); Carbon Dioxide 24 mmol/L (22-29); Chloride 107 mmol/L (96-108); Creatinine Clr Calc Pharmacy 56.7; Estimated Glomerular Filt Rate > 60; Glucose Random 110 mg/dL (60-115); Potassium 4.7 mmol/L (3.3-5.1); Sodium 140 mmol/L (135-145)
[2022-11-17 20:05] LABS: Bacteria Urine None Seen (None Seen); Hyaline Casts Urine 0-2 /LPF (0-2); RBC Urine >20 /HPF (0-2); Squamous Epithelial Cell Urine 0-2 /HPF (0-2); WBC Urine 0-5 /HPF (0-5)
[2022-11-17 21:58] VITALS: BP 128/71; PULSE 68; RESP 18; TEMP 36.8; O2SAT 97
--- NOTE | 2022-11-17 22:12 | ED_ITS ---
HPI - Female Genitourinary General Chief complaint: Urogenital-Female Stated complaint: Blood in urine Time Seen by Provider: 11/17/22 21:54 History of Present Illness HPI Narrative: Patient is a 67-year-old female presented today with having bloody urine. History of cervical cancer in the remote past. History of adrenal mass question invasion into the kidney patient been having bouts of bloody urine from time to time. There is no fever no chills no chest pain. No bloody stool. Bowel movement has been normal. No nausea no vomiting. Patient is out of her narcotics. Normally is on oxycodone for the pain. Gotten many [facility] in the past for pain in the suprapubic area. Denies any fever chills. No coughing or congestion or upper respiratory symptoms. Related Data Home Medications Medication Instructions Recorded Confirmed omeprazole 20 mg capsule,delayed 20 mg PO DAILY 08/01/22 10/19/22 release Previous Rx's Medication Instructions Recorded cane #1 ea 08/18/21 sertraline 50 mg tablet 75 mg (1.5 x 50 mg) PO DAILY 90 06/29/22 days #135 tabs clotrimazole 1 % vaginal cream 1 appful vaginal BEDTIME 7 days 07/10/22 #45 grams food supplemt, lactose-reduced 1 ea PO DAILY 90 days #21,330 mL 07/12/22 (Ensure oral liquid) ferrous sulfate 325 mg (65 mg 325 mg PO BID #60 tabs 08/09/22 iron) tablet alendronate 70 mg tablet 70 mg PO QWEEK #12 tabs 08/22/22 walker (Ultra-Light Rollator [facility] [place]) #1 ea 08/31/22 diaper,brief,adult,disposable #60 ea 09/13/22 ([employer] Adult Brief) ondansetron 8 mg disintegrating 8 mg PO Q8H PRN nausea 10/08/22 tablet morphine 30 mg tablet,extended 30 mg PO Q12H #60 tabs 10/22/22 release (MS Contin) oxycodone 5 mg tablet 2.5 mg (1/2 x 5 mg) PO Q6H PRN 10/22/22 pain 30 days #60 tabs prednisone 5 mg tablet 5 mg PO BID #60 tabs 10/30/22 meclizine 12.5 mg tablet 12.5 mg PO DAILY PRN dizziness 30 11/06/22 days #14 tabs gabapentin 600 mg tablet 600 mg PO DAILY 30 days #30 tabs 11/09/22 lorazepam 1 mg tablet See Rx Instructions PO BID PRN 11/09/22 anxiety 30 days #120 tabs oxycodone 5 mg tablet 5 mg PO Q8H PRN pain #7 tabs 11/17/22 Allergies Allergy/AdvReac Type Severity Reaction Status Date / Time buprenorphine [Belbuca] Allergy Intermediate Anaphylaxis Verified 11/17/22 19:11 Review of Systems 2 Review of Systems: Positive lower abdominal pain Yes all other systems are reviewed and are negative PMFSH Past Medical History Medical History Cervical cancer Opiate abuse, episodic Osteoarthritis of both knees Primary osteoarthritis of knees, bilateral Osteopenia determined by x-ray Seropositive rheumatoid arthritis Back pain Surgical History History of D&C History of tonsillectomy History of appendectomy History of cholecystectomy Family History Family History Father Acute CVA (cerebrovascular accident) Mother Hypertension Hypercholesterolemia Brother Liver transplant status Family history of thyroid problem Social History Social History Household Members: Children Housing: House 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 Cognitive needs: No Hearing needs: No Vision needs: No Physical Exam 2 Vital Signs: Vital Signs: Last Vital Signs Temp 98.2 F 11/17/22 21:58 Pulse 68 11/17/22 21:58 Resp 18 11/17/22 21:58 BP 128/71 11/17/22 21:58 Pulse Ox 97 11/17/22 21:58 O2 Del Method Room Air 11/17/22 21:58 BMI result Body Mass Index 20.0 Appearance: Alert. Oriented X3. No acute distress. Eyes: Pupils equal, round and reactive to light. ENT: Pharynx normal. Neck: Normal inspection. Neck supple. No lymph nodes noted. No crepitus CVS: Normal heart rate and rhythm. Pulses normal. Normal S1 and S2 Respiratory: No respiratory distress. Breath sounds normal. No Wheezing. No rales Abdomen: Soft and nontender. No rigidity. No distention. good BS x4 Skin: Skin warm and dry. Normal skin color. Normal skin turgor. Extremities: No lower extremity edema. Neurovascular intact to all extremities. No Lacerations. No Rash Neuro: Oriented X 3. No motor deficit. No sensory deficit. Moving all extermities. No slurred speech Medications Administered Discontinued Medications Generic Name Dose Route Start Last Admin Trade Name Freq PRN Reason Stop Dose Admin Hydromorphone HCl 0.5 mg 11/17/22 22:06 11/17/22 22:58 Hydromorphone Hcl 0.5 Mg/0.5 Ml Syringe IVPUSH 11/17/22 22:07 0.5 mg ONCE ONE Administration Protocol Sodium Chloride 1,000 mls @ 999 mls/hr 11/17/22 22:15 11/17/22 22:58 Ns IV 11/17/22 23:15 999 mls/hr .Q1H1M LUIS M Administration Iohexol 100 ml 11/17/22 22:34 11/17/22 22:35 Iohexol 350 Mg/Ml 100 Ml Infus..Btl IV 11/17/22 22:35 85 ml ONCE ONE Administration Medical Decision Making Medical Decision Making [facility] Narrative: Patient well appearing no acute distress. Patient's urine showed positive blood. But no evidence of infection. Patient's hemoglobin is 13 which is actually better than baseline. Will get a CT scan of the abdomen pelvis. Make sure patient does not have obstruction does not have other pathology. Aware patient has a possible adrenal mass. Will give a dose of pain medication given her oncological history. She has a follow-up on Saturday. CT scan of the abdomen pelvis showed no acute abscess perforation. No obstruction. Question colitis but patient has no bowel symptoms. She wanted pain medication. Has a history of the same. Given history of malignancy. Reluctantly agree to give patient additional 3 days with the pain medication. Will discharge patient home. In stable condition. Differential Diagnosis Differential Diagnoses: The differential diagnosis associated with the presentation includes Urinary tract infection, kidney stone, renal mass, obstruction, abscess, perforation Lab Data MDM Lab Attestation statement: I reviewed the patient's lab results. 11/17/22 19:30 11/17/22 19:30 Labs: Lab Results 11/17/22 11/17/22 Range/Units 19:30 19:40 WBC 8.8 (4.8-10.8) X10*3/uL RBC 4.52 (4.20-5.50) X10*6/uL Hgb 12.5 (12.0-16.0) g/dl Hct 37.9 (37.0-47.0) % MCV 83.8 (80.0-98.0) fL MCH 27.7 (27.0-33.0) pg MCHC 33.0 (31.0-35.0) g/dl RDW 17.8 H (11.0-16.0) % Plt Count 304 D (160-400) X10*3/uL MPV 10.5 (9.4-12.3) fL Immature Gran % (Auto) 0.2 (0.0-0.4) % Neut % (Auto) 86.9 H (45-73) % Lymph % (Auto) 9.5 L (20-40) % [place] % (Auto) 3.2 (2-11) % Eos % (Auto) 0.0 (0-4) % Baso % (Auto) 0.2 (0-2) % Lymph # (Auto) 0.8 L (1.2-4.9) X10*3/uL [place] # (Auto) 0.3 (0.1-1.2) X10*3/uL Eos # (Auto) 0.0 (0.0-0.4) X10*3/uL Baso # (Auto) 0.0 (0.0-0.2) X10*3/uL Abs Immat Gran (auto) 0.02 (0.00-0.03) X10*3/uL Absolute Neuts (auto) 7.7 (2.0-8.3) x10*3/uL Absolute Nucleated RBC 0.000 (0.0-0.012) X10*3/uL Nucleated RBC % (auto) 0.0 (0.0-0.2) /100WBC Sodium 140 (135-145) mmol/L Potassium 4.7 (3.3-5.1) mmol/L Chloride 107 (96-108) mmol/L Carbon Dioxide 24 (22-29) mmol/L Anion Gap 14 (12-20) BUN 29 H (9-16) mg/dL Creatinine 0.85 (0.5-1.4) mg/dL Estim Creat Clear Calc 56.7 Estimated GFR > 60 Random Glucose 110 (60-115) mg/dL Calcium 10.2 (8.4-10.2) mg/dL Urine Color Yellow Urine Appearance Clear Urine pH 7.5 (5.0-9.0) Ur Specific [place] >= 1.030 H (1.005-1.025) Urine Protein Trace (Neg-Trace) mg/dL Urine Glucose (UA) Negative (Negative) mg/dL Urine Ketones Negative (Negative) mg/dL Urine Blood Large (3+) H (Negative) Urine Nitrite Negative (Negative) Ur Leukocyte Esterase Trace H (Negative) Urine RBC >20 H (0-2) /HPF Urine WBC 0-5 (0-5) /HPF Ur Squamous Epith Cells 0-2 (0-2) /HPF Urine Bacteria None Seen (None Seen) Hyaline Casts 0-2 (0-2) /LPF Independent Interpretation I performed an independent interpretation of an: CT Scan Interpretation: No acute obstruction abscess perforation Radiology Impression Discussion of test interpretation with radiology: I have reviewed the radiologist's reading. External Record Review External record reviewed: Inpatient record Prescription Management I considered prescription management with: Pain Medication Chronic Conditions History of cervical cancer. Possible adrenal cancer. 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 No Action Ensure Liquid 1 ea PO DAILY 90 Days Qty: 3RF Rx Instructions: Butter Pecan. alendronate 70 mg tablet 70 mg PO QWEEK Qty: 12 1RF (DME) [employer] Adult Brief Misc See Rx Instructions .Route Qty: 60 2RF Rx Instructions: 2 daily As directed, 30 days ondansetron 8 mg tablet,disintegrating 8 mg PO Q8H PRN (Reason: nausea) 3RF meclizine 12.5 mg tablet 12.5 mg PO DAILY PRN (Reason: dizziness) 30 Days Qty: 14 0RF gabapentin 600 mg tablet 600 mg PO DAILY 30 Days Qty: 30 1RF ferrous sulfate 325 mg (65 mg iron) Tablet 325 mg PO BID Qty: 60 3RF (DME) cane Device See Rx Instructions .Route Qty: 1 0RF Rx Instructions: As directed omeprazole 20 mg capsule,delayed release(DR/EC) 20 mg PO DAILY (DME) Ultra-Light Rollator Misc See Rx Instructions .Route Qty: 1 0RF Rx Instructions: Rollator walker with seat and brakes. Daily as directed. 999 days oxycodone 5 mg tablet 2.5 mg PO Q6H PRN (Reason: pain) 30 Days Qty: 60 0RF Rx Instructions: Partial Fill upon patient request. morphine [MS Contin] 30 mg tablet extended release 30 mg PO Q12H Qty: 60 0RF Rx Instructions: Partial Fill upon patient request. clotrimazole 1 % cream 1 appful vaginal BEDTIME 7 Days Qty: 45 1RF sertraline 50 mg tablet 75 mg PO DAILY 90 Days Qty: 135 3RF lorazepam 1 mg tablet See Rx Instructions PO BID PRN (Reason: anxiety) 30 Days Qty: 120 0RF Rx Instructions: 1mg to 2mg orally 2 times a day PRN; [employer] verified. Partial refill upon request. prednisone 5 mg tablet 5 mg PO BID Qty: 60 3RF Referrals: Dean Villalba MD [Primary Care Provider] -
--- NOTE | 2022-11-17 22:26 | PC.NURSE ---
PT brought in from waiting from. States she has been in pain and experiencing hematuria. pt endorses burning pain with urination and increase in frequency. Pt was here 1-2 weeks ago for similar concerns and reports she was told she did not have a UTI only rbc in urine. PT has a history of cancer- she was unsure the exact diagnosis but notes it was between the liver kidney and gland. Chemotherapy stopped 2 months ago due to bleeding concerns. She was told one of the medications she was on was likely the cause so states chemo was paused. Pt reports she had a couple of blood transfusions due to bleeding and notes Increased instances UTI over the past few?years. Follow up with provider noted the same outcome. Pt also notes she has not received her full order for morphine, lorazepam, and oxycodone this month and has run out of them. She reports she has been extremely sick since. She doesn't see provider until Saturday and is in need medications until her appointment. Provider at bedside. Awaiting orders. Plan of caring ongoing
[2022-11-17] MEDS: iohexoL 350 MG/ML 100 ML INFUS..BTL IV (22:35)
[2022-11-17] MEDS: 0.9 % Sodium Chloride 1,000 ML 999 ML IV (22:58)
[2022-11-17] MEDS: HYDROmorphone HCl 0.5 MG/0.5 ML SYRINGE IVPUSH (22:58)
--- NOTE | 2022-11-17 23:03 | PC.NURSE ---
IV access established by imaging. Fluids infusing, Dilaudid administered. PT requested a sandwich and milk, informed her that imaging report is still pending.
[2022-11-17 23:33] VITALS: BP 119/57; PULSE 64; RESP 14; TEMP 37; O2SAT 97
== END 2022-11-18 06:04 | disposition home or self-care (01) ==
PROVIDERS: Physician Assistant Medical; Emergency Provider Emergency Medicine Emergency Medical Services; PCP Family Medicine
DX: E27.8 Other specified disorders of adrenal gland (principal); R31.9 Hematuria, unspecified; D64.9 Anemia, unspecified; C53.9 Malignant neoplasm of cervix uteri, unspecified; M05.9 Rheumatoid arthritis with rheumatoid factor, unspecified; F11.10 Opioid abuse, uncomplicated; Z87.891 Personal history of nicotine dependence; Z87.440 Personal history of urinary (tract) infections; Z79.899 Other long term (current) drug therapy
CPT/HCPCS: 36415; 74177; 80048; 81001; 81003; 85025; 96374; 99284; J1170; Q9967

== ENCOUNTER 2022-11-20 14:00 | Outpatient (AMB) | payer MEDICARE, SELFPAY ==
--- NOTE | 2022-11-20 14:07 | MHC.PC.OV ---
Vital Signs 11/20/22 14:08 Height 5 ft 5 in Weight 122 lb 8 oz BMI 20.4 BP 126/70 Blood Pressure Location Rt brachial Position Sitting Respiration 12 Pulse 87 Pulse Source Pulse Oximeter Temp 97.8 F Temp Source Temporal Artery Scan Pulse Oximetry (%) 99 Oxygen Delivery Method Room Air Intake Visit Reasons: f/u medication Intake Note: Patient is here to follow up on Oxycodone and Morphine. Patient states that she has been taking apill and a half of gabapentin instead of single tab, is wondering if script can be increased. Assistant Food Service Manager Required: No Accompanied by: Self / Same As Patient Allergies buprenorphine [Belbuca] Allergy (Intermediate, Verified 11/20/22 14:24) Anaphylaxis Tobacco use date assessed: 11/09/22 Fall risk assessment: 2 + Falls in past year Last assessed Fall Risk: 11/20/22 Dental Screening Dental Screen Date: 11/20/22 Did you have a dental visit in the last 12 months?: Yes Did you have a dental problem in the last 6 months where you did not have access to dental care?: No Was dental information given to patient?: Patient has dentist HPI f/u medication HPI Details 67 y/o female presents to f/u meds for pain control. She is requesting a referral to pain management. [facility] Medical History Cervical cancer Opiate abuse, episodic Osteoarthritis of both knees Primary osteoarthritis of knees, bilateral Osteopenia determined by x-ray Seropositive rheumatoid arthritis Back pain Surgical History History of D&C History of tonsillectomy History of appendectomy History of cholecystectomy Family History Father Acute CVA (cerebrovascular accident) Mother Hypertension Hypercholesterolemia Brother Liver transplant status Family history of thyroid problem Social History Household Members: Children Housing: House Are you a primary disabilities caregiver to a significant other at home: Yes (mom) Do you presently have visiting nurse or other home services: No Alcohol intake: never Patient Tobacco Use Status: Former Tobacco user Quit Date: 2016 Tobacco use type: Cigarette e-Cigarette/Vaping Use: Never Used Second Hand Smoke Exposure: No service: No 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 Cognitive needs: No Hearing needs: No Vision needs: No Questionnaire Thrive Questionnaire Date Thrive assessed: 08/18/21 STEPHIE-7 AMB Questionnaire STEPHIE-7 Date STEPHIE - 7 assessed: 10/19/22 Source: Developed by Drs. Kevin Kenney, Joanie Swan, Marino Medina and colleagues, with an educational july from [employer]. Review of Systems Const Denies chills, Denies fatigue, Denies fever(s), Denies headache(s) and Denies weakness ENT Denies dizziness and Denies headache(s) Card Denies dyspnea Resp Denies cough, Denies dyspnea, Denies wheezing and Denies other (shortness of breath) Musc Denies numbness and Denies tingling Neuro Denies dizziness, Denies headache(s), Denies numbness, Denies tingling and Denies weakness Psych Denies anxiety and Denies depression Endo Denies fatigue Aller/Immun Denies wheezing Physical exam (Primary Care) Vital Signs: Last Vital Signs Temp 97.8 F 11/20/22 14:08 Pulse 87 11/20/22 14:08 Resp 12 11/20/22 14:08 BP 126/70 11/20/22 14:08 Pulse Ox 99 11/20/22 14:08 Oxygen Delivery Method Room Air 11/20/22 14:08 BMI result Body Mass Index 20.4 Tobacco/Smoking Status: Tobacco use Status Tobacco use date assessed 11/09/22 11/20/22 14:09 Patient Tobacco Use Status Former Tobacco user 11/20/22 14:09 Tobacco use type Cigarette 11/20/22 14:09 e-Cigarette/Vaping Use Never Used 11/20/22 14:09 Thrive Assessment: Date of Thrive Assessment Date Thrive assessed 08/18/21 11/20/22 14:09 Const General: well developed; No acute distress Nutritional Appearance: well nourished Orientation/consciousness: patient oriented x3 HENMT Head: Yes normocephalic and Yes atraumatic Eyes General: appearance normal, both eyes and all related structures Pupils: Equal, round and reactive pupils present EOM: EOMs intact bilaterally Resp Effort & Inspection: normal respiratory effort Neuro General: patient oriented x3 and gait normal Cranial nerves: Yes Equal, round and reactive pupils present Psych Affect: normal affect Assessment and Plan Assessment & Plan (1) Chronic, continuous use of opioids: Code(s): F11.90 - Opioid use, unspecified, uncomplicated Plan: Patient has history of cervical cancer with metastasis and had had complaints of abdominal pain and other pain for which she was given opioid pain medications. She has responded very well to her cancer treatments which are well controlled. Her Hematology-Oncology is specialist does not feel she needs opioid pain medications or that she needs this level of opioid pain medications any longer. After discussion with Hematology-Oncology, I feel that she can be safely switched to or NSAID medications and have her opioid pain medications weaned down. Had decreased her fast acting opioid medications and continued her long-acting MS Contin. Patient used more of her medication than recommended and required additional medication at the emergency department. Not compliant with weaning at this time. As above, Hematology-Oncology and I both feel that she does not require this level of pain medication. Would request in the future that the emergency department work at finding other methods of pain control as we work to wean down her dependency. ------ We discussed today that she will be continued for the next 15 days on oxycodone 2.5 mg every 6 hours and will continue MS Contin 30 mg every 12 hours. Will likely continue again for another 15 days at that visit. However, we discussed that at the end of the month I plan to decrease her pain medication further. I have asked her to work at voluntarily decreasing in preparation for this. She may not be compliant with this. We discussed that I may not be able to continue to provide this medication if she is not compliant and would wean her off rapidly if necessary though I am hoping not to do this. Increased patient's gabapentin as discussed today and she agrees with this change. Checking urine drug screen again today. Will follow-up in 15 days. (2) Osteoarthritis of knees, bilateral: Code(s): M17.0 - Bilateral primary osteoarthritis of knee (3) Back pain: Code(s): M54.9 - Dorsalgia, unspecified (4) Cervical cancer: Code(s): C53.9 - Malignant neoplasm of cervix uteri, unspecified (5) Chronic pain: Code(s): G89.29 - Other chronic pain Orders: Referrals Pain Management Referral G89.29 - Other chronic pain Medications: New gabapentin 300 mg a.m., 300 mg afternoon, 600 mg bedtime orally 3 times a day; 30 days 120 caps 2RF Changed From morphine ER (MS Contin) Partial Fill upon patient request. 30 mg PO Q12H 60 tabs 0RF To morphine ER (MS Contin) Partial Fill upon patient request. 30 mg PO Q12H 15 days 30 tabs 0RF Refilled morphine ER (MS Contin) Partial Fill upon patient request. 30 mg PO Q12H 60 tabs 0RF oxycodone Partial Fill upon patient request. 2.5 mg (1/2 x 5 mg) PO Q6H 15 days PRN 30 tabs 0RF pain Coding Level of Care Code Est Pt Level 3 (94580) Diagnoses Chronic, continuous use of opioids F11.90 Osteoarthritis of knees, bilateral M17.0 Back pain M54.9 Cervical cancer C53.9 Chronic pain G89.29
[2022-11-20 14:08] VITALS: BP 126/70; PULSE 87; RESP 12; TEMP 36.6; O2SAT 99; BMI 20.4
== END 2022-11-20 16:11 | disposition home or self-care (01) ==
PROVIDERS: PCP Family Medicine; Visit Provider Family Medicine
DX: F11.90 Opioid use, unspecified, uncomplicated (principal); M17.0 Bilateral primary osteoarthritis of knee; M54.9 Dorsalgia, unspecified; C53.9 Malignant neoplasm of cervix uteri, unspecified; G89.29 Other chronic pain
CPT/HCPCS: 99213

== ENCOUNTER 2022-11-20 14:10 | Outpatient (REF) | payer MEDICARE, SELFPAY ==
[2022-11-21 15:07] LABS: Amphetamine Screen Urine Not Detected (Not Detect); Barbiturates, Urine Not Detected (Not Detect); Benzodiazepines Screen Urine Not Detected (Not Detect); Cannabinoid Screen Urine Not Detected (Not Detect); Cocaine Screen Urine Not Detected (Not Detect); Fentanyl, urine Not Detected (Not Detect); Opiate Screen Urine POSITIVE (Not Detect); Phencyclidine Screen Urine Not Detected (Not Detect)
[2022-11-29 12:25] LABS: Alphahydroxymidazolam,GCMS Ur NEGATIVE; Alphahydroxytriazolam, GCMS Ur NEGATIVE; Alprazolam, GCMS Urine NEGATIVE; Aminoclonazepam, GCMS Urine NEGATIVE; Nordiazepam, GCMS Urine NEGATIVE; Oxazepam, GCMS Urine NEGATIVE; Temazepam, GCMS Urine NEGATIVE
[2022-11-29 12:26] LABS: Flurazepam Metabolite,GCMS Ur NEGATIVE
== END 2022-11-20 14:11 | disposition home or self-care (01) ==
LOC: HO.LAB 14:10
PROVIDERS: Visit Provider Family Medicine
DX: Z13.89 Encounter for screening for other disorder (principal)
CPT/HCPCS: 80307; 80346

== ENCOUNTER 2022-11-29 10:50 | Outpatient (AMB) | payer MEDICARE, SELFPAY ==
[2022-11-29 10:54] VITALS: BP 120/70; PULSE 78; O2SAT 100; BMI 21.1
--- NOTE | 2022-11-29 10:54 | MHC.PC.OV ---
Vital Signs 11/29/22 10:54 Height 5 ft 5 in Weight 127 lb BMI 21.1 BP 120/70 Blood Pressure Location Lt brachial Position Sitting Pulse 78 Pulse Source Pulse Oximeter Pulse Oximetry (%) 100 Oxygen Delivery Method Room Air Intake Visit Reasons: f/u opiod use/chronic pain Intake Note: Patient is here for follow up on opioid use and chronic pain. Allergies buprenorphine [Belbuca] Allergy (Intermediate, Verified 11/29/22 10:58) Anaphylaxis Tobacco use date assessed: 11/29/22 Fall risk assessment: 2 + Falls in past year Last assessed Fall Risk: 11/29/22 Dental Screening Dental Screen Date: 11/29/22 Did you have a dental visit in the last 12 months?: Yes Did you have a dental problem in the last 6 months where you did not have access to dental care?: No Was dental information given to patient?: Patient has dentist HPI f/u opiod use/chronic pain HPI Details 67 y/o female presents to f/u opioid use/chronic pain. Had increased her gabapentin and referred her to pain management. [facility] Medical History Cervical cancer Opiate abuse, episodic Osteoarthritis of both knees Primary osteoarthritis of knees, bilateral Osteopenia determined by x-ray Seropositive rheumatoid arthritis Back pain Surgical History History of D&C History of tonsillectomy History of appendectomy History of cholecystectomy Family History Father Acute CVA (cerebrovascular accident) Mother Hypertension Hypercholesterolemia Brother Liver transplant status Family history of thyroid problem Social History Household Members: Children Housing: House Are you a primary child adolescent care to a significant other at home: Yes (mom) Do you presently have visiting nurse or other home services: No Alcohol intake: never Patient Tobacco Use Status: Former Tobacco user Quit Date: 2016 Tobacco use type: Cigarette e-Cigarette/Vaping Use: Never Used Second Hand Smoke Exposure: No service: No 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 Cognitive needs: No Hearing needs: No Vision needs: No Questionnaire Thrive Questionnaire Date Thrive assessed: 08/18/21 STEPHIE-7 AMB Questionnaire STEPHIE-7 Date STEPHIE - 7 assessed: 10/19/22 Source: Developed by DrsLevon Kenney, Joanie Swan, Marino Medina and colleagues, with an educational july from [employer]. Physical exam (Primary Care) Vital Signs: Last Vital Signs Pulse 78 11/29/22 10:54 BP 120/70 11/29/22 10:54 Pulse Ox 100 11/29/22 10:54 Oxygen Delivery Method Room Air 11/29/22 10:54 BMI result Body Mass Index 21.1 Tobacco/Smoking Status: Tobacco use Status Tobacco use date assessed 11/29/22 11/29/22 11:03 Patient Tobacco Use Status Former Tobacco user 11/29/22 10:58 Tobacco use type Cigarette 11/29/22 10:58 e-Cigarette/Vaping Use Never Used 11/29/22 10:58 Thrive Assessment: Date of Thrive Assessment Date Thrive assessed 08/18/21 11/29/22 10:58 Assessment and Plan Assessment & Plan (1) Chronic pain: Code(s): G89.29 - Other chronic pain Plan: History of chronic pain and prior cervical cancer. She has responded well to chemotherapy. Monitored by Hematology-Oncology. After discussion with heme Onc, we agree that she no longer needs to be on high levels of opioid medications. I have been weaning these down with patient. No acute distress in office today. Decreasing morphine sulfate from 30 mg tablets down to 15 mg tablets and increasing her oxycodone from 2.5 mg per dose to 5 mg tablets t.i.d. She will let me know if she is having any withdrawal symptoms. She is being followed closely every 15 days. (2) Opiate abuse, episodic: Code(s): F11.10 - Opioid abuse, uncomplicated Plan: History of substance abuse Following her closely. Medications: Changed From morphine ER (MS Contin) Partial Fill upon patient request. 30 mg PO Q12H 15 days 30 tabs 0RF To morphine ER Partial Fill upon patient request. 15 mg PO Q12H 15 days 30 tabs 0RF From oxycodone Partial Fill upon patient request. 2.5 mg (1/2 x 5 mg) PO Q6H 15 days PRN 30 tabs 0RF pain To oxycodone Partial Fill upon patient request. 5 mg PO Q8H 15 days PRN 45 tabs 0RF pain Refilled clotrimazole 1% 1 appful vaginal BEDTIME 7 days 45 grams 1RF Coding Level of Care Code Est Pt Level 3 (08047) Diagnoses Chronic pain G89.29 Opiate abuse, episodic F11.10
== END 2022-11-29 11:32 | disposition home or self-care (01) ==
PROVIDERS: PCP Family Medicine; Visit Provider Family Medicine
DX: G89.29 Other chronic pain (principal); F11.10 Opioid abuse, uncomplicated
CPT/HCPCS: 99213

== ENCOUNTER 2022-12-13 09:50 | Outpatient (AMB) | payer MEDICARE, SELFPAY ==
[2022-12-13 09:56] VITALS: BP 110/62; PULSE 76; O2SAT 97; BMI 21.0
--- NOTE | 2022-12-13 09:56 | MHC.PC.OV ---
Vital Signs 12/13/22 09:56 Height 5 ft 5 in Weight 126 lb 8 oz BMI 21.0 BP 110/62 Blood Pressure Location Lt brachial Position Sitting Pulse 76 Pulse Source Pulse Oximeter Pulse Oximetry (%) 97 Oxygen Delivery Method Room Air Intake Visit Reasons: f/u chronic pain/opioid use Intake Note: Patient is here to follow up on chronic pain and opioid use. Psychiatric Orderly: Present Allergies buprenorphine [Belbuca] Allergy (Intermediate, Verified 12/13/22 09:59) Anaphylaxis Tobacco use date assessed: 12/13/22 Fall risk assessment: 1 Fall in past year Last assessed Fall Risk: 12/13/22 Dental Screening Dental Screen Date: 12/13/22 Did you have a dental visit in the last 12 months?: Yes Did you have a dental problem in the last 6 months where you did not have access to dental care?: No Was dental information given to patient?: Patient has dentist HPI f/u chronic pain/opioid use HPI Details 67 y/o female presents to f/u chronic pain/opioid use. He?is?having?ongoing?joint?pain?and?she?is?primarily?complaining?about?her?hands. She?says?she?has?seen?a?senior buyer planner?in?the?past. She?had?been?put?on?opioids?due?to?complaints?of?pain?when?diagnosed?with?metastatic?cervical?cancer.??She?has?responded?well?to?the?cervical?cancer?and?her?Hematology-Oncology?specialist?had?discussed?weaning?this?down?but?had?difficulty?with?it.??S he?asked?me?to?take?over?weaning?down?her?medication. Patient?appears?to?be?tolerating?most?recent?decrease?in?her?opioid?medications?somewhat?but?does?have?worsened?hand?pain.??She?is?not?taking?an?NSAID?at?present.??She?also?says?she?had?a?senior buyer planner?at?[facility]?and?was?on?Enbrel?but?was?unable?to? continue?this?due?to?cancer. [facility] Medical History Cervical cancer Opiate abuse, episodic Osteoarthritis of both knees Primary osteoarthritis of knees, bilateral Osteopenia determined by x-ray Seropositive rheumatoid arthritis Back pain Surgical History History of D&C History of tonsillectomy History of appendectomy History of cholecystectomy Family History Father Acute CVA (cerebrovascular accident) Mother Hypertension Hypercholesterolemia Brother Liver transplant status Family history of thyroid problem Social History Household Members: Children Housing: House Are you a primary home health care physician to a significant other at home: Yes (mom) Do you presently have visiting nurse or other home services: No Alcohol intake: never Patient Tobacco Use Status: Former Tobacco user Quit Date: 2016 Tobacco use type: Cigarette e-Cigarette/Vaping Use: Never Used Second Hand Smoke Exposure: No service: No 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 Cognitive needs: No Hearing needs: No Vision needs: No Questionnaire Thrive Questionnaire Date Thrive assessed: 08/18/21 STEPHIE-7 AMB Questionnaire STEPHIE-7 Date STEPHIE - 7 assessed: 10/19/22 Source: Developed by Drs. Kevin Kenney, Joanie Swan, Marino Medina and colleagues, with an educational july from [employer]. Review of Systems Const Denies chills, Denies fatigue, Denies fever(s), Denies headache(s) and Denies weakness ENT Denies dizziness and Denies headache(s) Card Denies dyspnea Resp Denies cough, Denies dyspnea, Denies wheezing and Denies other (shortness of breath) Musc Denies numbness and Denies tingling Neuro Denies dizziness, Denies headache(s), Denies numbness, Denies tingling and Denies weakness Psych Denies anxiety and Denies depression Endo Denies fatigue Aller/Immun Denies wheezing Physical exam (Primary Care) Vital Signs: Last Vital Signs Pulse 76 12/13/22 09:56 BP 110/62 12/13/22 09:56 Pulse Ox 97 12/13/22 09:56 Oxygen Delivery Method Room Air 10/05/23 09:56 BMI result Body Mass Index 21.0 Tobacco/Smoking Status: Tobacco use Status Tobacco use date assessed 12/13/22 12/13/22 10:02 Patient Tobacco Use Status Former Tobacco user 12/13/22 10:02 Tobacco use type Cigarette 12/13/22 10:02 e-Cigarette/Vaping Use Never Used 12/13/22 10:02 Thrive Assessment: Date of Thrive Assessment Date Thrive assessed 08/18/21 12/13/22 10:02 Const General: well developed; No acute distress Nutritional Appearance: well nourished Orientation/consciousness: patient oriented x3 HENMT Head: Yes normocephalic and Yes atraumatic Eyes General: appearance normal, both eyes and all related structures Pupils: Equal, round and reactive pupils present EOM: EOMs intact bilaterally Resp Effort & Inspection: normal respiratory effort Neuro General: patient oriented x3 and gait normal Cranial nerves: Yes Equal, round and reactive pupils present Psych Affect: normal affect Assessment and Plan Assessment & Plan (1) Chronic pain: Code(s): G89.29 - Other chronic pain Plan: He?is?having?ongoing?joint?pain?and?she?is?primarily?complaining?about?her?hands. She?says?she?has?seen?a?senior buyer planner?in?the?past. She?had?been?put?on?opioids?due?to?complaints?of?pain?when?diagnosed?with?metastatic?cervical?cancer.??She?has?responded?well?to?the?cervical?cancer?and?her?Hematology-Oncology?specialist?had?discussed?weaning?this?down?but?had?difficulty?with?it.??S he?asked?me?to?take?over?weaning?down?her?medication. Patient?appears?to?be?tolerating?most?recent?decrease?in?her?opioid?medications?somewhat?but?does?have?worsened?hand?pain.??She?is?not?taking?an?NSAID?at?present.??She?also?says?she?had?a?senior buyer planner?at?[employer]?and?was?on?Enbrel?but?was?unable?to? continue?this?due?to?cancer. Had?decreased?her?long-acting?morphine?at?her?last?visit?but?increased?her?short-acting?oxycodone?at?that?time?with?an?overall?decrease?in?her?morphine?mg?equivalents. Will?give?her?celecoxib?to?try?to?get?better?control?of?her?arthritis?in?her?hands?and?I?will?refer?her?to?Rheumatology. We?discussed?weaning?her?opioid?medications but?together?we?decided?that?we?would?continue?her?medication?for?another?15?days?as?is. She?will?return?in?14?days. We?discussed?that?I?plan?at?that?time?to?discuss?weaning?her?medications?further.??Patient?understands. I?will?likely?request?that?she Work?at?voluntary?reductions?in?her?immediate?acting?opioids?to?get?her?use?to?a?reduction?in?her?prescription?at?the?subsequent?visit. No?change?in?her?opioid?medications?today.??Adding?celecoxib. She?is?had?some?concerns?and?complaints?about?vaginal?bleeding?but?had?ED?she?has?had?no?significant?bleeding?and?no?anemia. Okay?for?NSAIDs (2) Chronic, continuous use of opioids: Code(s): F11.90 - Opioid use, unspecified, uncomplicated Plan: As?above Orders: Referrals Rheumatology Referral M19.90 - Unspecified osteoarthritis, unspecified site Medications: New celecoxib 200 mg PO BID 30 days PRN 60 caps 1RF pain Refilled oxycodone Partial Fill upon patient request. 5 mg PO Q8H 15 days PRN 45 tabs 0RF pain morphine ER Partial Fill upon patient request. 15 mg PO Q12H 30 tabs 0RF 15 days Coding Level of Care Code Est Pt Level 3 (85350) Diagnoses Chronic pain G89.29 Chronic, continuous use of opioids F11.90
== END 2022-12-13 11:07 | disposition home or self-care (01) ==
PROVIDERS: PCP Family Medicine; Visit Provider Family Medicine
DX: G89.29 Other chronic pain (principal); F11.90 Opioid use, unspecified, uncomplicated
CPT/HCPCS: 99213

== ENCOUNTER 2022-12-26 09:30 | Outpatient (AMB) | payer MEDICARE, SELFPAY ==
--- OUTSIDE RECORDS SUMMARY | 2022-12-26 09:31 | XMS_ITS | Continuity of Care Document ---
Author Name Unknown Organization [facility] Address [address] [place] [address]- Care Team Providers Care Bi Architect Name Role Phone Bobbi Mae MD Primary Care Physician Encounter [facility] Date(s): 11/23/21 - 11/23/[address] [address]- Discharge Disposition: A-D/C Home Attending Physician: Kevin Harris MD Admitting Physician: Kevin Harris MD Referring Physician: Not on Staff, Referring MD Allergies, Adverse Reactions, Alerts No Known Allergies Medications Lorazepam = 1 mg, By Mouth, 3 times a day, 0 Refills, Maintenance, 09/19/16 9:24:13 EDT Start Date: 09/19/16 Status: Ordered Problem List Condition Effective Dates Status Health Status Inform ant History of cervical cancer(Confirmed) Active Vital Signs Most recent to oldest [Reference Range]: 1 2 Height 165 cm (11/23/21 8:47 PM) 165 cm (11/23/21 8:45 PM) Weight 68.3 kg (11/23/21 8:47 PM) 68.3 kg (11/23/21 8:45 PM) Oxygen Saturation [94-100 %] 98 % (11/23/21 8:45 PM) Pulse Rate [55-90 bpm] 69 bpm (11/23/21 8:45 PM) Body Mass Index [18.5-24.99] 25.09 *H* (11/23/21 8:45 PM) Blood Pressure [90-138/55-84 mm Hg] 155/ 84mm Hg *H* (11/23/21 8:45 PM) Respiratory Rate [16-30 br/min] 18 br/mi n (11/23/21 8:45 PM) Temperature [96.8-100.4 DegF] 96.6 DegF *L* (11/23/21 8:45 PM) Mode of Delivery (Oxygen) Room air (11/23/21 8:45 PM) Blood pressure sites Arm, right (11/23/21 8:45 PM) Temperature Route Temporal (11/23/21 8:45 PM) Dry Weight 68.3 kg (11/23/21 8:47 PM) 68.3 kg (11/23/21 8:45 PM) Dry Weight Obtained Via Standing scale (11/23/21 8:45 PM) Social History Social History Type Response Smoking Status Former smoker entered on: 04/29/17 Sex Care Team Personnel Name: Bobbi Mae MD Address: [address] [place] [id number]
--- OUTSIDE RECORDS SUMMARY | 2022-12-26 09:31 | XMS_ITS | Continuity of Care Document ---
Author Name Unknown Organization [facility] DIRECTOR PATIENT FINANCIAL SERVICES Oncolog y Address [address] [place] [id number]- Care Team Providers Care Strip Machine Operator Name Role Phone Po Bobbi GODFREY Primary Care Physician [phone] Encounter [facility] Date(s): 12/02/19 - 01/01/20 [facility] DIRECTOR PATIENT FINANCIAL SERVICES Oncology [address] [place] [address]- [facility] Attending Physician: Janae Jeffries Admitting Physician: Janae Jeffries Referring Physician: AdmtrJanae Allergies, Adverse Reactions, Alerts Substance Reaction Severity Status NKA Active Medications Lorazepam = 1 mg, By Mouth, 3 times a day, 0 Refills, Maintenance, 09/19/16 9:24:13 EDT Start Date: 09/19/16 Status: Ordered PredniSONE = 5 mg, By Mouth, Daily, 0 Refills, Maintenance, 07/10/18 8:12:09 EDT Start Date: 07/10/18 Status: Ordered Problem List Condition Effective Dates Status Health Status Inform ant History of cervical cancer(Confirmed) Active Social History Social History Type Response Smoking Status Former smoker entered on: 04/29/17 Sex
--- OUTSIDE RECORDS SUMMARY | 2022-12-26 09:31 | XMS_ITS | Continuity of Care Document ---
Author Name Unknown Organization [facility] Address [address] [place] [address]- Care Team Providers Care Second Operator Name Role Phone Dean Villalba MD Primary Care Physician Encounter [facility] Date(s): 03/21/22 - 04/20/22 [facility] [address] [place] [id number] Attending Physician: Janae Jeffries Admitting Physician: Janae Jeffries Referring Physician: AdmtrJanae Allergies, Adverse Reactions, Alerts No Known Allergies Medications Gabapentin By Mouth, 0 Refills, Maintenance, 03/21/22 8:21:00 EST, Partial fill upon patient request if the prescription is for a schedule II opioid drug. Start Date: 03/21/22 Status: Ordered Lorazepam = 1 mg, By Mouth, 3 times a day, 0 Refills, Maintenance, 09/19/16 9:24:13 EDT Start Date: 09/19/16 Status: Ordered Morphine 0 Refills, Maintenance, 03/21/22 8:21:00 EST, Partial fill upon patient request if the prescriptionis for a schedule II opioid drug. Start Date: 03/21/22 Status: Ordered Oxycodone By Mouth, 0 Refills, Maintenance, 03/21/22 8:21:00 EST, Partial fill upon patient request if the prescription is for a schedule II opioid drug. Start Date: 03/21/22 Status: Ordered Problem List Condition Confirmation Course Effective Dates Status Health St atus Informant Back pain Confirmed Active History of cervical cancer Confirmed Active Cervical cancer Confirmed Active Opioid abuse Confirmed Active Osteoarthritis, knee Confirmed Active Osteopenia Confirmed Active Seropositive erosive rheumatoid arthritis Confirmed Active Social History Social History Type Response Smoking Status Former smoker entered on: 04/29/17 Sex Patient Care team information Care Team Personnel Name: Dean Villalba MD Position: [facility] Outreach Member Role: PCP Address: Address: [address] [place] [id number]- Care Team Related Persons Name: AUREA LEGER Address: home [address] [place] [address] Name: LALITHA LEGER Address: home [address] [place] [address]
--- OUTSIDE RECORDS SUMMARY | 2022-12-26 09:31 | XMS_ITS | Continuity of Care Document ---
Author Name Unknown Organization [facility] SENIOR BENEFITS SPECIALIST Oncolog y Address [address] [place] [address]- Care Team Providers Care Anesthesia Attending Name Role Phone Dean Villalba MD Primary Care Physician [phone] Encounter [facility] Date(s): 03/23/22 - 04/22/22 [facility] SENIOR BENEFITS SPECIALIST Oncology [address] [place] [id number] Allergies, Adverse Reactions, Alerts No Known Allergies [...] Team Personnel Name: Dean Villalba MD Position: S Outreach Member Role: PCP Address: Address: [address] [place] [id number] Care Team Related Persons Name: AUREA LEGER Address: home [address] [place] [address] Name: LALITHA LEGER Address: home [address] [place] [address]
--- OUTSIDE RECORDS SUMMARY | 2022-12-26 09:31 | XMS_ITS | Continuity of Care Document ---
Author Name Unknown Organization [facility] BEAMER HELPER Oncolog y Address [address] [place] [address]- Care Team Providers Care Glassware Selector Name Role Phone Po Bobbi GODFREY Primary Care Physician Encounter [facility] Date(s): 06/01/19 - 06/11/19 [facility] BEAMER HELPER Oncology [address] [place] [id number] [facility] Attending Physician: Janae Jeffries Admitting Physician: AdmJanae moe Referring Physician: Admtr ArAna Allergies, Adverse Reactions, Alerts Substance Reaction Severity [...]
--- OUTSIDE RECORDS SUMMARY | 2022-12-26 09:31 | XMS_ITS | Continuity of Care Document ---
Author Name Unknown Organization [facility] ter Address [address] [place] [address]- Care Team Providers Care Cone Chocolate Dipper Name Role Phone Dean Villalba MD Primary Care Physician [phone] Encounter [facility] R [id number] Date(s): 02/28/22 - 04/15/[address] [address] Attending Physician: Milton Yi Jr, MD Admitting Physician: Milton Yi Jr, MD Allergies, Adverse Reactions, Alerts No Known [...] S Outreach Member Role: PCP Address: Address: [address] [place] [address]- Care Team Related Persons Name: AUREA LEGER Address: home [address] [place] [address] Name: LALITHA LEGER Address: home [address] [place] [address]
--- OUTSIDE RECORDS SUMMARY | 2022-12-26 09:31 | XMS_ITS | Continuity of Care Document ---
Author Name Unknown Organization [facility] ter Address [address] [place] [id number]- Care Team Providers Care Banquet Stewardess Name Role Phone Dean Villalba MD Primary Care Physician En[place] [facility] [place](s): 05/31/22 - 06/01/[address] [address]- Encounter Diagnosis Seropositive erosive rheumatoid arthritis(Discharge Diagnosis) - 05/30/22 Discharge Disposition: A-D/C Home Attending Physician: Vianca Newton MD Admitting Physician: Vianca Newton MD Referring Physician: Not on Staff, Referring MD Allergies, Adverse Reactions, Alerts No Known Allergies Immunizations Given and Recorded Vaccine Date Status Refusal Reason SARS-CoV-2 (COVID-19) mRNA-1273 vaccine 09/26/20 R ecorded SARS-CoV-2 (COVID-19) mRNA-1273 vaccine 08/27/20 R ecorded Medications Lorazepam = 1 mg, By Mouth, 3 times a day, 0 Refills, Maintenance, 09/19/16 9:24:13 EDT Start Date: 09/19/16 Status: Ordered Morphine 0 Refills, Maintenance, 03/21/22 8:21:00 EST, Partial fill upon patient request if the prescriptionis for a schedule II opioid drug. Start Date: 03/21/22 Status: Ordered MorPHINE Immediate Release Tablet 15 mg, Tablet, By Mouth, Every 12 hours, PRN for Pain , Severe, Routine, 05/31/22 2:11:00 EDT Start Date: 05/31/22 Stop Date: 06/02/22 Status: Discontinued Oxycodone By Mouth, 0 Refills, Maintenance, 03/21/22 8:21:00 EST, Partial fill upon patient request if the prescription is for a schedule II opioid drug. Start Date: 03/21/22 Status: Ordered oxyCODONE 5 mg oral tablet 5 mg, Tablet, By Mouth, Every 6 hours, PRN for Pain , Severe, Routine, 05/31/22 2:08:00 EDT Start Date: 05/31/22 Stop Date: 06/02/22 Status: Discontinued Problem List Condition Confirmation Course Effective Dates Status Health St atus Informant Back pain Confirmed Active History of cervical cancer Confirmed Active Cervical cancer Confirmed Active Cervical ca Confirmed Active Opioid abuse Confirmed Active Osteoarthritis, knee Confirmed Active Osteopenia Confirmed Active Seropositive erosive rheumatoid arthritis Confirmed Active Diagnosis Diagnosis Type Effective Dates Health Status Clinical Service Informant Seropositive erosive rheumatoid arthritis Discharge Diagnosis 05/30/22 Vital Signs Most recent to oldest [Reference Range]: 1 2 3 Height 165 cm (06/01/22 11:13 AM) 165 cm (06/01/22 7:32 AM) 165 cm (05/31/22 3:58 PM) Weight 63.1 kg (05/31/22 7:19 AM) 63.1 kg (05/31/22 3:01 AM) Oxygen Saturation [94-100 %] 96 % (06/01/22 11:13 AM) 97 % (06/01/22 7:32 AM) 99 % (06/01/22 4:24 AM) Pulse Rate [55-90 bpm] 64 bpm (06/01/22 11:13 AM) 71 bpm (06/01/22 7:32 AM) 65 bpm (06/01/22 4:24 AM) Body Mass Index [18.5-24.99 kg/m2] 23.18 kg/m2 (05/31/22 3:01 AM) Blood Pressure [90-138/55-84 mm Hg] 118/59mm Hg (06/01/22 11:13 AM) 136/65mm Hg (06/01/22 7:32 AM) 135/65mm Hg (06/01/22 4:24 AM) Respiratory Rate [16-30 br/min] 18 br/min (06/01/22 3:17 PM) 18 br/min (06/01/22 11:13 AM) 20 br/min (06/01/22 10:10 AM) Temperature [96.8-100.4 DegF] 98.7 DegF (06/01/22 11:13 AM) 99.3 DegF (06/01/22 7:32 AM) 98.9 DegF (06/01/22 4:24 AM) Mode of Delivery (Oxygen) Room air (06/01/22 11:13 AM) Room air (06/01/22 7:32 AM) Room air (06/01/22 4:24 AM) Blood pressure sites Arm, left (06/01/22 11:13 AM) Arm, left (06/01/22 7:32 AM) Arm, left (06/01/22 4:24 AM) Temperature Route Oral (06/01/22 11:13 AM) Oral (06/01/22 7:32 AM) Oral (06/01/22 4:24 AM) Dry Weight 63.1 kg (05/31/22 3:01 AM) Weight Obtained Via Bed scale (05/31/22 7:19 AM) Social History Social History Type Response Smoking Status Former smoker entered on: 04/29/17 Sex History and physical note * Jeaneth Cisneros DO D: PERFORM Event Display: History and Physical Hospital Authored Date: Patient: ??EVELYN LEGER ? Age:??67 Years?Sex:??Female?:??1955?? 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 She was a transfer from [place] for [facility] evaluation. ?? On evaluation, ??patient states she has had bleeding on and off for one month but more consistent bleeding for the last week. She then had much heavier bleeding today, passing clots which brought herto [place] ED. She states while in [facility] [place] she was not bleeding as heavy as she was earlier. She statesshe feels tired and fatigued at baseline. She denies any fever, chills, dizziness, lightheadedness,chest pain, shortness of breath, edema, changes in bowel or urinary habits. ?? 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 TREATMENT:?? 1. Cisplatin 11/15/16- 12/20/16 2. External beam radiation therapy ??11/15/2016 - 01/25/2017 3. Vaginal brachytherapy 12/31/16 and 01/07/17 ([facility]) 4. PET 2018 with avid lung lesion, small LN. Lung bx neg 5. planned for carbo/taxol but lost to follow up??with [facility] and transferred to care at [place]- patient unable to specify treatment she is currently getting Review of Systems Constitutional, Eye, Skin, Head/Neck, ENMT, Respiratory, Cardio, Gastrointestinal, Breast, Gynecologic, Genitourinary, Endocrine, Musculoskeletal, Immunologic, Hematologic, Lymphatic, Neurologic, Psych reviewed and negative except as noted in HPI. Physical Exam Vitals & Measurements T:??98.5?F ?? SD:??71?? RR:??13?? BP:??108/67?? SpO2:??95%?? Constitutional:??no acute distress, very anxious Respirations:??Normal exam, not labored.? Breath sounds are:??Clear to auscultation, equal bilaterally, not with rales, crackles, wheezing,??or rhonchi.? Cardiovascular:??Regular rate and rhythm, no murmurs.? Abdomen/GI:??Soft, non-tender, and non-distended, no guarding, no rebound tenderness.?? Gynecologic:?? Atrophic changes with small introitus. Pale tissue s/p radiation. Packing that had fallen out was not saturated and have minimal pink staining. Soaked with urine at distal end. On removal of packing,there was no active bleeding noted. Patient adamantly decline speculum exam. Attempted internal exam with one digit but patient adamantly requested exam stop - no blood on glove. Extremities:??No clubbing, cyanosis or edema present.?? Skin:??No rash or jaundice. Normal for ethnicity. Neurological/Psychiatric:??Appearance appropriate, mood and affect stable. ?? Vaginal Packing: After counseling patient, patient only agreed to packing change if done without speculum. She was given fentanyl IV (choice of med due to hypotension) before exam was performed. Urinary pham was placed. Light pink tinged urine noted on pham insertion. See above for detailed auto transport driver exam. Kerlix was coated in Monsels and packing with packing forceps attempted to be placed into vagina. On placement patient very uncomfortable. Initially patient agreed to continue packing, but suddenlyrequested exam be stopped. At this point about 10cm length of Kerlix with Monsels was placed in vagina. Explained importance of tight packing. After patient given break, attempted to proceed however patient requested exam be stopped and not continued. Kerlix was trimmed with scissors. 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 ?? On arrival to ED, patient was hypotensive, 70s/40s, and HR 70sbpm. She??was receiving a unit of pRBCs started at [place] and??had received 1g TXA. On arrival, she also had vaginal packing that was placed prior to transfer.?[facility] was urgently paged to assess bleeding as patient was saying it was pouring out of her. ?? On [facility] ONC eval,??BPs were 90s/60 and HR 70s s/p first unit of blood. Labs??from [place] prior to transfer significant??for H/H 9.7/29, plts 322 and normal coags.??On evaluation of?? pouring expressed by patient, she was referring to urine. Initially patient refused SHIRT IRONER exam, packing removal, and packing replacement. Discussed importance of auto transport driver exam for bleeding and goals of exam. Discussed the goal of identifying the bleeding to know best way to manage bleeding such as with vaginal packing and pressure vs need for IR embolization. Patient expressed understanding of need for exam and packingbut adamantly refused exam. Explored patient's reasoning for declining exam. Patient repeatedly states she was unsure but was able to identify pain control as source of anxiety around exam. She was given IV pain medications and agreed to attempt exam. Please refer to physical exam for findings. Though minimal packing was able to be placed due to patient inability to tolerate exam at this time, she is not having active bleeding and therefore discussed no need for urgent intervention at this time. Did discuss with patient plan to monitor bleeding very closely. Discussed that if bleeding increases, would recommend to reattempt exam and packing. Patient expressed understanding. Discussed that if patient unable to tolerate bedside exam, would recommend exam under anesthesia, vaginal packing, and biopsies. Discussed risks of surgery include bleeding, infection, and injury to surrounding organs. All of patient's questions and concerns were addressed. Consents were signed. Also discussed indication for transfusion, benefits of increased systemic oxygenation, and risks of transfusion including febrile reaction, allergic reaction and hemolysis, volume overload and rare risk of infection from blood transfusion. She acknowledged these risks, questions were answered and consents were signed.Transfusing second unit at this time and 4u pRBCs placed on hold. ?? After an hour with packing in place, no bleeding on pad under patient and no bleeding on vaginal packing. Will continue to monitor. ?? Reviewed plan for admission to [facility] team for monitoring and management of vaginal bleeding. ?? Vaginal bleeding (N93.9):??Admit for to [facility] ONC packing in place, monitor bleeding closely s/p 1g IV TXA blood consent: s/p 1u pRBCs, (p) a second unit pRBCs; 4u pRBCs on hold replace packing tomorrow or sooner as needed consent signed for EUA, vaginal packing and possible biopsies consider IR embolization with persistent bleeding diet: NPO IV fluids: LR??@ 70ml/hr, s/p 1L IV fluid bolus reviewed [place] transfer notes: H/H 9.07/07, plts 399, normal coags??before transfer (p) repeat??CBC, coags ?? Cervical ca (C53.9):??recurrent squamous cell carcinoma CT at [place]: decrease in size of adrenal mass previously seen, decompressed vagina, ?bladder massbased on approximation of anterior and posterior vagina, uterus unchanged compared to prior exam ?? Seropositive erosive rheumatoid arthritis (M05.80):??source of chronic pain ?? Chronic pain (G89.29):??Current home pain regimen: Morphine ER 15 mg twice daily, oxycodone 5mg q6hrs. Home medications ordered ?? Anxiety (F41.9):??lorazepam 1mg 3x/day ordered ?? Patient discussed with Dr Newton, attending. Active Problem List Active Problem List Back pain: (Medical) Cervical cancer: (Medical) History of cervical cancer: (Medical) Opioid abuse: (Medical) Osteoarthritis, knee: (Medical) Osteopenia: (Medical) Seropositive erosive rheumatoid arthritis: (Medical) Procedure/Surgical History Appendectomy Tonsillectomy D&C - Dilatation and curettage Laparoscopic cholecystectomy Home Medications Gabapentin: By Mouth Lorazepam: 1 mg, By Mouth, 3 times a day Morphine Oxycodone: By Mouth Allergies Suboxone Social History Alcohol Use: Never., 12/10/2017 Electronic Cigarette/Vaping Electronic Cigarette Use: Never., 03/21/2022 Employment/School Status: Disabled, Retired., 03/21/2022 Exercise Self assessment: Poor condition., 12/10/2017 Home/Environment Living situation: Home/Independent. Lives with: Children., 03/21/2022 Nutrition/Health Diet: Regular., 12/10/2017 Sexual Sexually involved in last 6 months: No., 03/21/2022 Substance Abuse Use: Never. Substance abuse in household: No., 12/10/2017 Tobacco Former smoker, 04/29/2017 Family History Mother (JOCELYNN): Hypercholesterolaemia; Hypertension; Osteoarthritis (arthritis due to wear and tear of joints) ? 23-DEC-2015 21:52:24<$> Father (AGGIE, ): Cerebrovascular accident * Vianca Newton MD: PERFORM Event Display: History and Physical Hospital Authored Date: [id number] Attending attestation: I have seen and evaluated this patient.?? I have discussed the case and its management with the resident and agree with the findings and plan as documented in the resident's note ?? concern for acute vaginal bleeding. admitted for obs. EUA if any amount of vaginal bleeding to better understand source. refused exam in ER and packing. pham placed prior to refusal of packing. given significant hypotension getting resuscitated w RBCs. continue to follow labs and exam closely. hold chemoppx given concern for active bleeding ?? Vianca Newton MD Gynecologic Oncology Attending Hospital Progress note * Saravanan CATHERINE, Herminia: PERFORM, SIGN, VERIFY Event Display: Progress Note Hospital Authored Date: [id number] Patient: EVELYN LEGER Age: 67 years Sex: Female : 1955 Associated Diagnoses: None Author: Herminia Coe RN Findings Problem Related to Alteration in Genitourinary : Alteration in Genitourinary Function/new 06/01/2022 14:00 EDT Alteration in Status Related to Other: Vaginal bleeding. Cervical cancer Goals & Outcomes, Genitourinary Pt will achieve normal/improved fluid balance, Pt will maintainadequate function appropriate for pt, Pt will maintain normal fluid balance, Other: Will maintain homeostasis Interventions, Assess/monitor/maintain Genitourinary status, Assist & encourage pt with meticulous aranza care BH Goals/Interventions, Genitourinary Yes Genitourinary, Problem Start 05/30/2022 22:00 Reviewed Plan with, Genitourinary Patient Patient Progression, Genitourinary Patient progressing according to plan Genitourinary, Problem Ongoing Yes . Evaluation Patient A/O x 4. Pain 8/10 given Oxycodone as ordered. LS are clear to auscultation bilaterally. Denies chest pain or SOB. +BS x4 quad, abd soft, nontender, nondistended , no N/V. Pt is tolerating Regular diet. Denied any numbness or tingling. + pedal pulses, + CMS, no edema noted in bilateral upper /lower extremities. Last bowel movement 05/30. Ambulates with a cane at baseline. Skin is intact. Patient's call cruz within reach. Bed in lowest locked position. Discharge instrutions will be rewiewed and questions anwered. IV will be removed.. * Daija Granado RN: SIGN, MODIFY, PERFORM, SIGN, VERIFY Event Display: Progress Note Hospital Authored Date: [id number] Patient: EVELYN LEGER Age: 67 years Sex: Female : 1955 Associated Diagnoses: None Author: Daija Granado RN Findings Problem Related to Alteration in Genitourinary : Alteration in Genitourinary Function/new 06/01/2022 0:00 EDT Alteration in Status Related to Other: Vaginal bleeding. Cervical cancer Goals & Outcomes, Genitourinary Pt will achieve normal/improved fluid balance, Pt will maintainadequate function appropriate for pt, Pt will maintain normal fluid balance, Other: Will maintain homeostasis Interventions, Assess/monitor/maintain Genitourinary status, Assist & encourage pt with meticulous aranza care, Encourage PO fluid intake as allowed by diet BH Goals/Interventions, Genitourinary Yes Genitourinary, Problem Start 05/30/2022 22:00 Reviewed Plan with, Genitourinary Patient Patient Progression, Genitourinary Patient progressing according to plan Genitourinary, Problem Ongoing Yes . Evaluation Pt skin intact. Pt denies pain. Pt incontinent of urine. Incontinence care provided. Pt positioned for comfort. No acute issues at this time.. * Daija Granado RN: PERFORM Event Display: Progress Note Hospital Authored Date: pt ambulated to bathroom with walker and two standby assists. * Griselda Azevedo RN: PERFORM, SIGN, VERIFY Event Display: Progress Note Hospital Authored Date: Patient: EVELYN LEGER Age: 67 years Sex: Female : 1955 Associated Diagnoses: None Author: Griselda Azevedo RN Findings Problem Related to Alteration in Genitourinary : Alteration in Genitourinary Function/new 05/31/2022 7:44 EDT Alteration in Status Related to Other: Vaginal bleeding. Cervical cancer Goals & Outcomes, Genitourinary Pt will achieve normal/improved fluid balance, Pt will maintainadequate function appropriate for pt, Pt will maintain normal fluid balance, Other: Will maintain homeostasis Interventions, Assess/monitor/maintain Genitourinary status, Assist & encourage pt with meticulous aranza care, Encourage PO fluid intake as allowed by diet BH Goals/Interventions, Genitourinary Yes Genitourinary, Problem Start 05/30/2022 22:00 Reviewed Plan with, Genitourinary Patient Patient Progression, Genitourinary Plan Initiation Genitourinary, Problem Ongoing Yes . Evaluation Patient alert and oriented x 4. VSS. Reports 8/10 pain. Oxycodone given as ordered. Lungs are clearto auscultation bilaterally. Denies chest pain or shortness of breath. Sating 94 percent on room air. Demonstrates 2000 on incentive spirometer. Denies numbness or tingling. + pedal pulses, + CMS, no edema noted in bilateral upper/lower extremities. Abdomen is soft, round and non-tender with + bowel sounds x 4. Denies nausea/vomiting. Currently NPO. Last bowel movement 05/30. Ambulates with a caneat baseline. Pham draining pink urine. Skin is intact. Patient resting comfortably in bed with call cruz within reach. Bed in lowest locked position.. Note * Herminia Coe RN: PERFORM Event Display: Discharge/Transfer Note Hospital Authored Date: [id number] Nursing Discharge Note Entered On: 06/01/2022 14:24 EDT Performed On: 06/01/2022 14:23 EDT by Herminia Coe RN Nursing Discharge Note 2 Discharge Time : 06/02/2022 15:30 EDT Herminia Coe RN - 06/01/2022 15:32 EDT Discharge Level of Care at Discharge : Home/Usp/Foster Care Patient Left Unit Via : Wheelchair Patient Accompanied Off Unit with : Responsible adult DC Instructions Provided & Signed by Pt : Yes Patient Understands D/C Instructions : Yes Patient Instructions Discharge Signed : Yes Did Pt have Specialty Bed or Wound Vac : No Herminia Coe RN - 06/01/2022 14:23 EDT * Prabha Perez: MODIFY, PERFORM Event Display: Discharge/Transfer Note Hospital Authored Date: [id number] Patient: ??EVELYN LEGER ? Age:??67 Years?Sex:??Female?:??1955?? 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 She was a transfer from [place] for [facility] ONC evaluation.?Upon initial??evaluation, ??patient states she has had bleeding on and off for one month but more consistent bleeding for the last week. She then had much heavier bleeding the day of admission, passing clots which brought her to [place] ED. Upon arrival to [facility] [place] she was not bleeding as heavily as she was earlier. She??stated she feels tired and fatigued at baseline. She denied any fever, chills, dizziness, lightheadedness, chest pain, shortness of breath, edema, changes in bowel or urinary habits.?Upon arrival, Evelyn was hypotensive to 70s/40s, and was receiving 1 unit of pRBC started at [place] and 1g TXA.??Upon initial??Line Technician Oncology evaluation??in the ER, the??patient refused pelvic exam with speculum. Upon internal exam with one digit, no blood was noted. Vaginal packing was placed in the ER and the patient was admitted for monitoring and management of bleeding. ?? She received 1 more unit pRBC's upon admission to [facility] due to ongoing hypotension.?? Her H/Hresponded appropriately and her BP has normalized.?? She continued to have no signs of bleeding so the vaginal packing was removed in the afternoon the day of admission.?? Her speculum exam was not concerning and she has had no ongoing bleeding.?? She is stable for discharge home today. Objective/Physical Exam on Day of Discharge Vitals & Measurements T:??99.3?F ?? SD:??71?? RR:??18?? BP:??136/65?? SpO2:??97%?? HT:??165??cm?? WT:??63.1??kg?? BMI:??23.18?? General: In no acute distress, awake, alert?? Respiratory: Respirations non-labored and non-rapid Abdomen:non-tender, non-distended, soft SHIRT IRONER: No bleeding seen on pad. 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 ? Patient hemodynamically stable at this time. Her vaginal packing has been removed and she has no ongoing bleeding.??She is voiding spontaneously.??She is medically appropriate for discharge home today.??She will have Chemotherapy on Saturday in [place]. ?? Vaginal bleeding (N93.9):??packing??removed - no ongoing bleeding ??s/p 1g IV TXA ??s/p 2u pRBCs with stable H/H ??pham removed - voiding spontaneously ?? Cervical ca (C53.9):??recurrent squamous cell carcinoma CT at [place]: decrease in size of adrenal mass previously seen, decompressed vagina, ?bladder massbased on approximation of anterior and posterior vagina, uterus unchanged compared to prior exam Set to have chemo Saturday at [place] ?? Seropositive erosive rheumatoid arthritis (M05.80):??source of chronic pain ?? Anxiety (F41.9):??lorazepam 1mg 3x/day ordered ?? Chronic pain (G89.29):??Current home pain regimen: Morphine ER 15 mg twice daily, oxycodone 5mg q6hrs. Home medications ordered ?? Future Appointments 06/13/2022 at 11:[address] Newton, Gynecologic Oncology Office, [address] [place] [address],??[place] [address], Discharge Medications ???Lorazepam???Morphine???Oxycodone Stop taking these medications ???Gabapentin Immunizations during Hospitalization Vaccine Date ExavahFGHB-WxH-3 (COVID-19) mRNA-1273 vaccine 09/26/2020 Recorded SARS-CoV-2 (COVID-19) mRNA-1273 vaccine 08/27/2020 Recorded Lab Results Test Name Test Result Date/TimeWBC 5.6 k/mm3 06/01/2022 01:11 EDT Hgb 11.0 Gm/dL (Low) 06/01/2022 01:11 EDT Hct 34.2 % (Low) 06/01/2022 01:11 EDT Platelet Count 318 k/mm3 06/01/2022 01:11 EDT Patient Instructions Contact Dr Newton's office for any significant vaginal bleeding (ie. soaking through a pad).?? [phone] ?? Call the office/go to the emergency room for any severe pain that is not controlled with medications, inability to eat or drink, ongoing nausea/vomiting or any other concerns. * Saravanan CATHERINE, Herminia: PERFORM Event Display: Patient Education/Instruction Authored Date: [id number] Inpatient Adult Discharge Instructions [address] [address] Name: EVELYN LEGER : 1955 Visit: 05/31/2022 01:35:00 Current Date: 06/01/2022 14:25 Account: [id number] Inpatient Adult Discharge Instructions We would like to thank you for allowing us to assist you with your healthcare needs. The following includes patient education materials and information regarding your injury/illness. Our entire staffstrives to provide an excellent experience for our patients and their families. PLEASE ENSURE YOU FOLLOW-UP PER THE INSTRUCTIONS BELOW! ?? YOUR OPINION IS IMPORTANT TO US! Please complete the survey you may receive by mail or email. Your feedback will be used to make improvements to the healthcare experiences of our patients and their families. Surveys are administered by [facility] ?? If further treatment with your primary care physician or another doctor is recommended, it is important for you to keep the appointment. Call your primary care physician or return to the Emergency Department immediately if your condition worsens, fails to improve, or new symptoms develop. If you need to find a doctor, you can call [facility] for a referral at [phone] or toll free at [phone] ([phone]) or log in to [email or web address].. ?? You can view and manage your care through the patient portal or by using a health care barbra of your choosing. Sequence is a website that allows you to securely view your medical information including your hospital discharge summary, office visit summaries, medications and follow-up visits. You can also request appointments, renew medications, and request access to your medical information using a health care barbra of your choosing, or just ask a question. You can enroll at [email or web address] or register during your next office visit. You have been discharged from [facility], Patient Care Unit: SW6. If you have any questions regarding these instructions after you leave, please call us and we will be happy to assist you. [facility] Your Care Team Attending Physician Aman GODFREY, Vianca Jarrett Consulting Providers Aman GODFREY, Vianca Jarrett Discharging Providers Prabha Perez Reason for Admission pt is a transfer from outside hospital for vaginal bleed, hx cervical ca 7 years in remission per pt, given TXA and 1 unit of blood however blood was not infusing on arrival and one IV removed duringtransport, hypotensive 83/62 Your Diagnosis Cervical ca Seropositive erosive rheumatoid arthritis Chronic pain Vaginal bleeding Anxiety Tests Performed Below is a partial list of the tests performed during your hospitalization. You may have had other tests and procedures not included in this list. Please discuss all test results with your provider. CBC CBC w/ Differential Comprehensive Metabolic Panel COVID-19 (2019 Novel Coronavirus) PCR Fibrinogen Hematocrit HOLD GEL TUBE Ionized Calcium Magnesium Level Phosphorus Level PT (INR) PTT Type and Screen Primary Care Provider Deejay GODFREY , Dean Ta Advance Directive Health Care Proxy on File Yes - Health Care Proxy Discharge Vitals Temperature: 98.7 DegF Height: 165 cm Pulse Rate: 64 bpm Weight: 63.1 kg Respiratory Rate: 18 br/min Body Mass Index: 23.18 kg/m2 Systolic Blood Pressure: 118 mm Hg Body surface area: 1.7 Diastolic Blood Pressure: 59 mm Hg ?? Oxygen Saturation: 96 % ?? Studies Pending All tests and labs ordered during this hospital stay have been completed unless listed below. Please discuss all pending results with your provider listed above in these instructions. ?? CBC w/ Differential RBCs on Hold Transfuse RBCs What to do next Instructions From Your Doctor Contact Dr Newton's office for any significant vaginal bleeding (ie. soaking through a pad).?? [phone] ?? Call the office/go to the emergency room for any severe pain that is not controlled with medications, inability to eat or drink, ongoing nausea/vomiting or any other concerns. Discharge Orders Scheduled Follow-Up Appointments Saturday 11:40 AM EDT ?? With: Vianca Newton MD Where: [facility] [address] [place] [address] 4th [place] [address] [place] [address]- You Need to Schedule the Following Appointments Follow Up with??Vianca Newton MD When??06/13/2022 11:40 AM EDT Where: [facility] [place] [address]- Discharge Medications EVELYN LEGER :1955 Visit Date:05/31/2022 Medications: Please continue your medications until treatment is completed or stopped by your provider. Medications not listed below should be discontinued. Discuss any questions related to medications with your provider. What How Much When Instructions Next Dose Unchanged Lorazepam 1 Milligram Oral 3 times a day Unchanged Morphine Unchanged Oxycodone Oral ?? What When Comments Stop Taking Gabapentin Test Results Below is a partial list of the most recent Laboratory test results done prior to this discharge. You may have had other tests and procedures not included in this list. Please discuss all test resultswith your provider. RBC Available - PT (05/31/2022) RBC Unit ID - [id number] (05/31/2022) CBC (05/31/2022) ???WBC - 4.2 k/mm3???RBC - 4.26 m/mm3???Hgb - 10.9 Gm/dL???Hct - 34.4 %???MCV - 80.8 femtoliters???MCH - 25.6 pg???MCHC - 31.7 g/dL???Platelet Count - 330 k/mm3???RDW-SD - 43.9 femtoliters???MPV - 9.4 femtoliters???Nucleated RBC (Automated) - 0.0 #/100 WBC'S???Abs. NRBC - 0.0 k/mm3 CBC w/ Differential (06/01/2022) ???WBC - 5.6 k/mm3???RBC - 4.22 m/mm3???Hgb - 11.0 Gm/dL???Hct - 34.2 %???MCV - 81.0 femtoliters???MCH - 26.1 pg???MCHC - 32.2 g/dL???Platelet Count - 318 k/mm3???RDW-SD - 44.4 femtoliters???MPV - 9.0 femtoliters???Nucleated RBC (Automated) - 0.0 #/100 WBC'S???Abs. NRBC - 0.0 k/mm3???Abs. Neut - 4.2 k/mm3???Abs. Lymph - 0.6 k/mm3???Abs. [place] - 0.4 k/mm3???Abs. Eo - 0.3 k/mm3???Abs. Baso - 0.0 k/mm3???Neut % - 74.7 %???Lymph % - 11.4 %???[place] % - 6.8 %???Eos % - 6.0 %???Baso % - 0.7 %???Imm Gran- 0.4 %???Abs. Imm Gran - 0.0 k/mm3 Comprehensive Metabolic Panel (05/31/2022) ???Sodium - 140 mmol/L???Potassium - 4.0 mmol/L???Chloride - 105 mmol/L???Bicarbonate Level - 23 mmol/L???Anion Gap - 12???Glucose Level - 90 mg/dL???BUN - 9 mg/dL???Creatinine-Blood - 0.8 mg/dL???Estimated GFR Creatinine - 84 ML/MIN/1.73 M2???Calcium - 8.4 mg/dL???Protein, Total - 5.8 Gm/dL???Albumin - 3.3 Gm/dL???AG Ratio - 1.3???Alkaline Phosphatase - 441 units/L???AST (SGOT) - 33 units/L???ALT (SGPT) - 17 units/L???Bilirubin, Total - 2.2 mg/dL COVID-19 (2019 Novel Coronavirus) PCR (05/31/2022) ???COVID-19 PCR Specimen Source - NASAL???COVID-19 PCR Result - NEGATIVE Fibrinogen (05/31/2022) ???Fibrinogen - 414 mg/dL Hematocrit (05/31/2022) ???Hct - 30.3 % HOLD GEL TUBE (06/01/2022) ???Hold Gel Top - SPECIMEN DISCARDED AFTER 1 WEEK Ionized Calcium (05/31/2022) ???Calcium, Ionized pH Corrected - 1.18 mmol/L Magnesium Level (05/31/2022) ???Magnesium - 1.9 mg/dL Phosphorus Level (05/31/2022) ???Phosphorus - 3.9 mg/dL PT (INR) (05/31/2022) ???INR - 1.1???Protime (PT) - 11.5 seconds PTT (05/31/2022) ???APTT - 29.6 seconds Type and Screen (05/30/2022) ???Blood Type - A Positive???Antibody Screen - Negative Allergies (NKA means No Known Allergies) NKA Problems Active Problems??(8) Back pain?? Cervical ca?? Cervical cancer?? History of cervical cancer?? Opioid abuse?? Osteoarthritis, knee?? Osteopenia?? Seropositive erosive rheumatoid arthritis?? Education Materials Below is the list of Educational Leaflet Providered with your Discharge Instructions. Valuables and Belongings I fully understand and agree that [facility] accepts no responsibility for all my personal property including clothing, toilet articles, radios, jewelry, dentures, hearing aids, rings, money, or any other property that is in my possession or is brought to me after admission. I understand certain valuables may be placed in a hospital safe for a short period of time. I understand that the hospital is not liable for loss or damage due to accident, fire, or other natural occurrence while said property is in the safe. I accept full responsibility for any personal property that I keep with me, and will not hold the hospital responsible in case of loss or disappearance. I acknowledge that i have been encouraged to send valuables and belongings home. ?? Review of Valuable and Belonging List: With witness, Other: DORENE PICKARDlearning and development consultant of Valuable and Belonging List: With witness, Other: NEERAJ RN Date for Pt to Sign Valuables/Belongings: 06/01/22 14:24:00 Date for Pt to Sign Valuables/Belongings: 06/01/22 14:24:00 ?? Other Discharge Information ? Case Management Discharge Plan?? Discharge Plan?? Discharge Level of Care at Discharge: Home/Usp/Foster Care ?? Pulmonary Rehab Status?? Pulmonary Rehab Discharge Status?? Respiratory Rate: 18 br/min ? Common Emergency Awareness Tips IS IT A STROKE? Act FAST and Check for these signs: FACE Does the face look uneven? ARM Does one arm drift down? SPEECH Does their speech sound strange? TIME Call at any sign of stroke ?? Heart Attack Signs Chest discomfort: Most heart attacks involve discomfort in the center of the chest and lasts more than a few minutes, or goes away and comes back. It can feel like uncomfortable pressure, squeezing, fullness or pain. Discomfort in upper body: Symptoms can include pain or discomfort in one or both arms, back, neck, jaw or stomach. Shortness of breath: With or without discomfort. Other signs: Breaking out in a cold sweat, nausea, or lightheaded. Remember, MINUTES DO MATTER. If you experience any of these heart attack warning signs, call to get immediate medical attention! ?? Smoking can increase your chances of developing chronic health problems and can cause harmful effects to other family members in your house. If you smoke, you are strongly encouraged to quit. Please call [facility] at [phone] or [phone] ([phone]) or log in to [email or web address] for referrals to smoking cessation programs. ?? The National Suicide Prevention Hotline is available 01/10 if you or someone you know needs to find a reason to keep living. By calling 9-642-198-Floor64 (6935) you'll be connected to a skilled, trained counselor at a crisis center in your area. INPATIENT DISCHARGE INSTRUCTIONS SIGNATURE PAGE EVELYN LEGER Location:[facility] Registration Date and Time:05/31/2022 01:35 EDT Primary Care Physician: Dean Villalba MD, I EVELYN LEGER, have received the above patient education materials/instructions and have verbalized understanding. If ambulance or transport services are being used I further acknowledge being given a choice of service. ?? If you need to contact me, please call me at this number: . Patient/Glass Smoother Name: Patient/Glass Smoother Signature: Relationship to Patient: Witness Name/Signature: Date: Patient Care team information Care Team Personnel Name: Yakelin Menard RN Position: S RN Member Role: Primary Care Nurse Name: Herminia Coe RN Position: S RN Member Role: Primary Care Nurse Name: Dean Villalba MD Position: [facility] Outreach Member Role: PCP Address: Address: [address] [place] [id number] Name: Griselda Azevedo RN Position: S RN Member Role: Primary Care Nurse Name: Daija Granado RN Position: [facility] RN Member Role: Primary Care Nurse Name: *Aissatou JC Attending Position: [facility] ED Medicine MD Name: Joan Lugo RN Position: [facility] ED RN W/OE and Tasks Member Role: Patient Care Provider Name: Bob Young MD Position: [facility] Resident Member Role: ED Resident Address: Address: [address] [place] [address]- Name: Silke Velazquez Position: [facility] ED TA [facility] Member Role: Home Designer Care Team Related Persons Name: AUREA LEGER Address: [address] [place] [address] Name: LALITHA LEGER Address: [address] [place] [address]
--- OUTSIDE RECORDS SUMMARY | 2022-12-26 09:31 | XMS_ITS | Continuity of Care Document ---
Author Name Unknown Organization [facility]ILLED TRADES TEACHER [facility] Address [address] [place] [address]- Care Team Providers Care Transmission Supervisor Name Role Phone Dean Villalba MD Primary Care Physician [phone] Encounter [facility] [place] [id number] Date(s): 03/30/22 - 05/03/22 [facility] [address] [place] [id number] Attending Physician: Vianca Newton MD Admitting Physician: Vianca Newton MD Referring Physician: Vianca Newton MD Allergies, Adverse Reactions, Alerts No Known [...] Team Personnel Name: Dean Villalba MD Position: [facility] Outreach Member Role: PCP Address: Address: [address] [place] [address]- Care Team Related Persons Name: AUREA LEGER Address: [address] [place] [address] Name: LALITHA LEGER Address: [address] [place] [address]
--- OUTSIDE RECORDS SUMMARY | 2022-12-26 09:31 | XMS_ITS | Continuity of Care Document ---
Author Name Unknown Organization [facility] CORROSION CONTROL FITTER Oncolog y Address [address] [place] [address]- Care Team Providers Care Grocery Buyer Name Role Phone Dean Villalba MD Primary Care Physician En[place] [facility] [place] Date(s): 06/01/22 - 07/13/22 [facility]ROS[facility] CONTROL FITTER Oncology [address] [place] [id number] Attending Physician: Vianca Newton MD Admitting Physician: Vianca Newton MD Referring Physician: Dean Villalba MD Allergies, Adverse Reactions, Alerts No Known [...] Care Nurse Name: Dean Villalba MD Position: S Outreach Member Role: PCP Address: Address: [address] [place] [id number] Name: Griselda Azevedo RN Position: S RN Member Role: Primary Care Nurse Name: Daija Granado RN Position: S RN Member Role: Primary Care Nurse Care Team Related Persons Name: AUREA LEGER Address: [address] [place] [address] Name: LALITHA LEGER Address: [address] [place] [address]
--- OUTSIDE RECORDS SUMMARY | 2022-12-26 09:31 | XMS_ITS | Continuity of Care Document ---
Author Name Unknown Organization [facility] LAND INSPECTOR Oncolog y Address [address] [place] [address]- Care Team Providers Care Maintenance Plumber Name Role Phone Deejay GODFREY, Dean Ta Primary Care Physician Encounter [facility] [place] Date(s): 06/28/22 - 07/28/22 [facility] L[facility] INSPECTOR Oncology [address] [place] [id number] Allergies, Adverse Reactions, Alerts No Known [...] Team Personnel Name: Yakelin Menard RN Position: [facility] RN Member Role: Primary Care Nurse Name: Herminia Coe RN Position: S RN Member Role: Primary Care Nurse Name: Dean Villalba MD Position: S Outreach Member Role: PCP Address: Address: [address] [place] [id number] Name: Griselda Azevedo RN Position: S RN Member Role: Primary Care Nurse Name: Daija Granado RN Position: S RN Member Role: Primary Care Nurse Care Team Related Persons Name: AUREA LEGER Address: [address] [place] [address] Name: LALITHA LEGER Address: [address] [place] [address]
--- OUTSIDE RECORDS SUMMARY | 2022-12-26 09:31 | XMS_ITS | Continuity of Care Document ---
Author Name Unknown Organization [facility] VICE ADMIRAL Oncolog y Address [address] [place] [address]- Care Team Providers Care News Wire Photo Operator Name Role Phone Deejay GODFREY, Dean Ta Primary Care Physician Encounter [facility] [place] Date(s): 04/03/22 - 05/03/22 [facility] ADMIRAL Oncology [address] [place] [address]- Attending Physician: Janae Jeffries Admitting Physician: Janae [...] Status Former smoker entered on: 04/29/17 Sex Hospital Consult note * Event Display: Inpatient Consult Note, Non-BH Authored Date: Note * Event Display: Non BH Lab Results Authored Date: * Event Display: IR Special Procedures, Non-BH Authored Date: * Event Display: Non BH Lab Results Authored Date: Patient Care team information Care Team Personnel Name: Deejay GODFREY , Dean Ta Position: S Outreach Member Role: PCP Address: Address: [address] [place] [address]- Care Team Related Persons Name: AUREA LEGER Address: [address] [place] [address] Name: LALITHA LEGER Address: [address] [place] [address]
--- OUTSIDE RECORDS SUMMARY | 2022-12-26 09:31 | XMS_ITS | Patient Health Record ---
Author Name Unknown Organization [facility] Address [address] [place] [id number] Care Team Providers Care Hair Machine Operator Name Role Phone Dean Villalba Primary Care Provider UnavailJaciel Molina Jr Unavailable ALLERGIES No Known Allergies RESULTS Component Value Reference Range Notes Pathology Reviewed date:05/18/2022 03:05:25 PM Interpretation: Performing Lab:[facility], [address] [place] [id number] Notes/Report: REASON FOR REFERRAL No Information MEDICATIONS Medication SIG (Take, Route, Frequency, Duration) Notes Start Date End Date Status Omeprazole 20 MG TAKE 1 CAPSULE BY [facility] EVERY DAY FOR 30 DAYS for 30 Active LORazepam 1 MG Oral for 30 Act diann Morphine Sulfate ER 30 MG Oral for 30 Active oxyCODONE HCl 5 MG Oral for 15 Active Gabapentin 600 MG Oral for 30 Active IMMUNIZATIONS Vaccine Route Administration Date Status Comme nts Influenza Unknown 01/30/2022 Administered SOCIAL HISTORY Tobacco Use: Social History Observation Description Date Details (start date - stop date) Former Smoker NA - NA Sex Assigned At : Social History Observation Description Sex Assigned At Unknown Tobacco Use/Smoking Question Answer Notes Patient is a former smoker Alcohol Screen Question Answer Notes Did you have a drink containing alcohol in the p ast year? No Points 0 Interpretation Negative Encounters Encounter Location Date Provider Diagnosis [facility] Outpatient [address] [place] [id number] 05/15/2022 Jaciel Ruby Jr Abnormal gastrointestinal PET scan R94.8 [facility] [address] [place] [phone] 09/20/2022 Jaciel Ruby Jr [facility] [address] [place] [phone] 05/07/2022 Jaciel Ruby Jr Abnormal gastrointestinal PET scan R94.8 [facility] [address] [place] [phone] 05/07/2022 Jaciel Ruby Jr [facility] [address] [place] [address] 05/18/2022 Jaciel Ruby Jr [facility] [address] [place] [address] 09/18/2022 Jaciel Ruby Jr ASSESSMENTS Encounter Date Diagnosis Assessment Notes Treatment Notes Treatment Clinical Notes 05/15/2022 Abnormal gastrointestinal PET scan (ICD-10 - R94.8) 05/07/2022 Abnormal gastrointestinal PET scan (ICD-10 - R94.8) PLAN OF TREATMENT Future Test Test Name Order Date UPPER GI ENDOSCOPY 05/07/2022 Insurance Providers Payer Name Payer Address Payer Phone Subscriber Number Group Number Insured Name Patient Relationship to Insured Coverage Start Date Coverage End Date MEDICARE OF [place] [address] [place] [phone] [id number] ROSA LEGER Self - patient is the insured MEDICAID OF [facility] [address] [place] [phone] [id number] ROSA LEGER Self - patient is the insured MEDICAL (GENERAL) HISTORY Medical History History ICD Code Stage IIIB cervical cancer, chemoradiation and prechemotherapy 2016, 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
--- OUTSIDE RECORDS SUMMARY | 2022-12-26 09:31 | XMS_ITS | Continuity of Care Document ---
Author Name Unknown Organization [facility] Address [address] [place] [address]- Care Team Providers Care Digital Account Director Name Role Phone Bobbi Mae MD Primary Care Physician [phone] [place] [facility] [place] 12[place]14[place]21 - 01/13/22 [facility] [address] [place] [address]- Attending Physician: Janae Jeffries Admitting Physician: Janae Jeffries Referring Physician: Janae Jeffries Allergies, Adverse Reactions, Alerts No Known Allergies Medications Lorazepam = 1 mg, By Mouth, 3 times a day, 0 Refills, Maintenance, 09/19/16 9:24:13 EDT Start Date: 09/19/16 Status: Ordered Problem List Condition Confirmation Course Effective Dates Status Health St [facility] Informant History of cervical cancer Confirmed Active Social History Social History Type Response Smoking Status Former smoker entered on: 04/29/17 Sex Patient Care team information Personnel Name: Bobbi Mae MD Address: Address: [address] [place] [id number]
--- OUTSIDE RECORDS SUMMARY | 2022-12-26 09:31 | XMS_ITS | Continuity of Care Document ---
Author Name Unknown Organization [facility] APRON CLEANER Oncolog y Address [address] [place] [address]- Care Team Providers Care Ground Crew Chief Name Role Phone Deejay GODFREY, Dean Ta Primary Care Physician [phone] [place] [facility] [place] 12/23/22 [facility]ON CLEANER Oncology [address] [place] [id number] Attending Physician: Vianca Newton MD Admitting Physician: Vianca Newton MD Allergies, Adverse Reactions, [...] Care Nurse Name: Dean Villalba MD Position: [facility] Outreach Member Role: PCP Address: Address: [address] [place] [address] Name: Griselda Azevedo RN Position: S RN Member Role: Primary Care Nurse Name: Antonio Vargas Position: [facility] Outreach Member Role: Lifetime Consulting Physician Name: Daija Granado RN Position: S RN Member Role: Primary Care Nurse Care Team Related Persons Name: AUREA LEGER Address: [address] [place] [address] Name: LALITHA LEGER Address: [address] [place] [address]
--- OUTSIDE RECORDS SUMMARY | 2022-12-26 09:31 | XMS_ITS | Continuity of Care Document ---
Author Name Unknown Organization [facility] Address [address] [place] [address]- Care Team Providers Care Drain Tile Machine Operator Name Role Phone Dean Villalba MD Primary Care Physician [phone] Encounter [facility] [place] Date(s): 03/21/22 - 08/22/22 [facility] Care [address] [place] [address]- Discharge Disposition: A-D/C Home Attending Physician: Vianca [...] Care Nurse Name: Dean Villalba MD Position: [facility] Outreach Member Role: PCP Address: Address: [address] [place] [address] Name: Griselda Azevedo RN Position: S RN Member Role: Primary Care Nurse Name: Daija Granado RN Position: S RN Member Role: Primary Care Nurse Care Team Related Persons Name: AUREA LEGER Address: [address] [place] [address] Name: LALITHA LEGER Address: [address] [place] [address]
--- OUTSIDE RECORDS SUMMARY | 2022-12-26 09:31 | XMS_ITS | Continuity of Care Document ---
Author Name Unknown Organization [facility] EARTH AUGER OPERATOR Oncolog y Address [address] [place] [address]- Care Team Providers Care Rattle Leak And Squeak Repairer Name Role Phone Bobbi Mae MD Primary Care Physician En[place] [facility] [place] Date(s): 09/03/19 - 01/01/20 [facility] EARTH AUGER OPERATOR Oncology [address] [place] [address] [facility] Attending Physician: Vianca Newton MD Admitting Physician: Vianca Newton MD Referring Physician: Bobbi Mae MD Allergies, Adverse Reactions, Alerts Substance Reaction Severity [...]
[2022-12-26 09:36] VITALS: BP 122/74; PULSE 78; TEMP 37.3; O2SAT 99; BMI 21.0
--- NOTE | 2022-12-26 09:36 | AM.OFFWIN_ITS ---
Intake Vital Signs 12/26/22 09:36 Height 5 ft 5 in Weight 126 lb BMI 21.0 BP 122/74 Blood Pressure Location Lt brachial Position Sitting Pulse 78 Pulse Source Pulse Oximeter Temp 99.2 F Temp Source Oral Pulse Oximetry (%) 99 Oxygen Delivery Method Room Air Intake Visit Reasons: vomiting,diarrhea Intake Note: Patient is here with vomiting diarrhea for 14 days, she states she's drinking, and taking her Ensure shakes, and having nikki rafal. Patient Tobacco Use Status: Former Tobacco user Quit Date: 2016 Allergies buprenorphine [Belbuca] Allergy (Intermediate, Verified 12/26/22 09:59) Anaphylaxis Medication List - Last Reconciled 12/26/22 by Jossie Gonzalez, BREASTFEEDING PEER COUNSELOR- alendronate 70 mg PO QWEEK cane As directed celecoxib 200 mg PO BID PRN 30 days clotrimazole 1% 1 appful vaginal BEDTIME 7 days diaper,brief,adult,disposable ([place] Adult Brief) 2 daily As directed, 30 days ferrous sulfate 325 mg PO BID food supplemt, lactose-reduced (Ensure oral liquid) 1 ea PO DAILY 90 days gabapentin 300 mg a.m., 300 mg afternoon, 600 mg bedtime orally 3 times a day; 30 days gabapentin 600 mg PO DAILY 30 days lorazepam 1mg to 2mg orally 2 times a day PRN; [employer] verified. Partial refill upon request. 30 days meclizine 12.5 mg PO DAILY PRN 30 days morphine ER 15 mg PO Q12H 15 days omeprazole 20 mg PO DAILY ondansetron 8 mg PO Q8H PRN oxycodone 5 mg PO Q8H PRN 15 days prednisone 5 mg PO BID sertraline 75 mg (1.5 x 50 mg) PO DAILY 90 days walker (Ultra-Light Rollator misc) Rollator walker with seat and brakes. Daily as directed. 999 days Do you need a note to return to daycare/school/sports/work: No HPI HPI Comments History of Present Illness Details Here today for a pill count. I am seeing this patient as a courtesy to her primary care who was out of the office today. She is currently on opiates for chronic pain related to cancer. She is undergoing a taper. REWINDER OPERATOR HELPER reviewed and shows: 1 Oxycodone Hcl (Ir) 5 Mg Tablet Th Gra [id number] [facility] (2658) Medicare 1 Morphine Sulf Er 1 5 Mg Tablet Th Gra [id number] [facility] ([id number]) today she presents with oxycodone in a labeled bottle with 8 tablets. Her last dose was this morning making the count correct. However the morphine she presents to me in a non labile medicine bottle with a handwritten note 12/18/22 morphine er 15mg . In this bottle is 6 blue tablets. She also has empty bottle from November 2022 from [facility]. She tells me that the morphine pills are in on labeled medicine bottle because she cannot open the original medicine bottle lid. I asked her where the original bottle was for me to at least look at and she said that she did not have it. She then goes on to tell me that she put these meds in a different bottle to be sure that her grandkids could not get in to her medications when she goes to visit them. She also tells me she got the morphine filled at [facility] as [facility] did not have the prescription. I reviewed with her what the last note from her PCP said as well as the REWINDER OPERATOR HELPER report as listed above stating that she got at [facility]. She then reports to me that she often forgets things and is taking everything as directed and does not want to be cut down or weaned off. [facility] Medical History Cervical cancer Opiate abuse, episodic Osteoarthritis of both knees Primary osteoarthritis of knees, bilateral Osteopenia determined by x-ray Seropositive rheumatoid arthritis Back pain Surgical History History of D&C History of tonsillectomy History of appendectomy History of cholecystectomy Family History Father Acute CVA (cerebrovascular accident) Mother Hypertension Hypercholesterolemia Brother Liver transplant status Family history of thyroid problem Social History Household Members: Children Housing: House Are you a primary laboratory animal caretaker to a significant other at home: Yes (mom) Do you presently have visiting nurse or other home services: No Alcohol intake: never Patient Tobacco Use Status: Former Tobacco user Quit Date: 2016 Tobacco use type: Cigarette e-Cigarette/Vaping Use: Never Used Second Hand Smoke Exposure: No service: No 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 Cognitive needs: No Hearing needs: No Vision needs: No Review of Systems Const All systems reviewed & are unremarkable except as noted in HPI and below Physical Exam Vital Signs: BMI result Body Mass Index 21.0 Const Other: Awake alert chronically ill-appearing appears older than stated age sitting in a wheelchair Tearful intermittently speaking in full sentences Assessment & Plan Assessment & Plan (1) Chronic, continuous use of opioids: Code(s): F11.90 - Opioid use, unspecified, uncomplicated Plan: Have advised her today that she should present to the office with her medications in the original medication bottle. I reviewed with her the REWINDER OPERATOR HELPER report which indicates that she filled both prescriptions at [facility]. She was advised that she needs to continue to fill her prescriptions at the same pharmacy. As this visit today is for a pill count and the count was correct & I was able to verify the blue tablets as Morphine ER 15mg, I have refilled her medications as previously prescribed. I have advised her to follow-up with Rheumatology and take her other medications as prescribed by her primary care to help with her chronic pain. She should come back and follow-up with PCP in about 12 days for in pill count and to continue discussion about tapering as appropriate. (2) Chronic pain: Code(s): G89.29 - Other chronic pain Medications: Refilled morphine ER Partial Fill upon patient request. 15 mg PO Q12H 15 days 30 tabs 0RF oxycodone Partial Fill upon patient request. 5 mg PO Q8H 15 days PRN 45 tabs 0RF pain Coding Level of Care Code Est Pt Level 4 (69292) Diagnoses Chronic, continuous use of opioids F11.90 Chronic pain G89.29
== END 2022-12-26 10:39 | disposition home or self-care (01) ==
PROVIDERS: PCP Family Medicine; Visit Provider Nurse Practitioner Family
DX: F11.90 Opioid use, unspecified, uncomplicated (principal); G89.29 Other chronic pain
CPT/HCPCS: 99214

== ENCOUNTER 2023-01-01 13:44 | Outpatient (AMB) | payer MEDICARE, SELFPAY ==
[2023-01-01 13:55] VITALS: BP 120/72; PULSE 70; O2SAT 95; BMI 21.3
--- NOTE | 2023-01-01 13:55 | A.OFFPC_ITS ---
Vital Signs 01/01/23 13:55 Height 5 ft 5 in Weight 128 lb BMI 21.3 BP 120/72 Blood Pressure Location Lt brachial Position Sitting Pulse 70 Pulse Source Pulse Oximeter Pulse Oximetry (%) 95 Oxygen Delivery Method Room Air Intake Visit Reasons: follow up chronic conditions Intake Note: Patient is here withh chronic conditions today. Allergies buprenorphine [Belbuca] Allergy (Intermediate, Verified 01/01/23 13:57) Anaphylaxis Tobacco use date assessed: 01/01/23 HPI follow up chronic conditions HPI Details 67 y/o female presents to f/u chronic pa in and opioid weaning. She has ongoing complaints of chronic pain and frustration about weaning down her medications. Pt reports dysuria. [facility] Medical History Cervical cancer Opiate abuse, episodic Osteoarthritis of both knees Primary osteoarthritis of knees, bilateral Osteopenia determined by x-ray Seropositive rheumatoid arthritis Back pain Surgical History History of D&C History of tonsillectomy History of appendectomy History of cholecystectomy Family History Father Acute CVA (cerebrovascular accident) Mother Hypertension Hypercholesterolemia Brother Liver transplant status Family history of thyroid problem Social History Household Members: Children Housing: House Are you a primary child care team lead to a significant other at home: Yes (mom) Do you presently have visiting nurse or other home services: No Alcohol intake: never Patient Tobacco Use Status: Former Tobacco user Quit Date: 2016 Tobacco use type: Cigarette e-Cigarette/Vaping Use: Never Used Second Hand Smoke Exposure: No service: No 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 Cognitive needs: No Hearing needs: No Vision needs: No Questionnaire Thrive Questionnaire Date Thrive assessed: 08/18/21 STEPHIE-7 AMB Questionnaire STEPHIE-7 Date STEPHIE - 7 assessed: 10/19/22 Source: Developed by Drs. Kevin Kenney, Joanie Swan, Marino Medina and colleagues, with an educational july from [employer]. Review of Systems Const Denies chills, Denies fatigue, Denies fever(s), Denies headache(s) and Denies weakness ENT Denies dizziness and Denies headache(s) Card Denies dyspnea Resp Denies cough, Denies dyspnea, Denies wheezing and Denies other (shortness of breath) Musc Denies numbness and Denies tingling Neuro Denies dizziness, Denies headache(s), Denies numbness, Denies tingling and Denies weakness Psych Denies anxiety and Denies depression Endo Denies fatigue Aller/Immun Denies wheezing Physical exam (Primary Care) Vital Signs: Last Vital Signs Pulse 70 01/01/23 13:55 BP 120/72 01/01/23 13:55 Pulse Ox 95 01/01/23 13:55 Oxygen Delivery Method Room Air 01/01/23 13:55 BMI result Body Mass Index 21.3 Tobacco/Smoking Status: Tobacco use Status Tobacco use date assessed 01/01/23 01/01/23 14:00 Patient Tobacco Use Status Former Tobacco user 01/01/23 14:00 Tobacco use type Cigarette 01/01/23 14:00 e-Cigarette/Vaping Use Never Used 01/01/23 14:00 Thrive Assessment: Date of Thrive Assessment Date Thrive assessed 08/18/21 01/01/23 14:00 Const General: well developed; No acute distress Nutritional Appearance: well nourished Orientation/consciousness: patient oriented x3 [facility] Head: Yes normocephalic and Yes atraumatic Eyes General: appearance normal, both eyes and all related structures Pupils: Equal, round and reactive pupils present EOM: EOMs intact bilaterally Resp Effort & Inspection: normal respiratory effort Neuro General: patient oriented x3 and gait normal Cranial nerves: Yes Equal, round and reactive pupils present Psych Affect: normal affect Assessment and Plan Assessment & Plan (1) Opioid dependence: Code(s): F11.20 - Opioid dependence, uncomplicated Plan: Patient?has?chronic?opioid?dependence?with?some?complaints?of?chronic?pain?as?we ll?as?joint?pain?from?arthritis. She?has?been?referred?to?pain?management?but?declined?there?treatments?because?s he?says?they?did?not?want?to?give?her?more?opioids. She?has?a?history?of?cervical?cancer?and?responded?well?to?therapy. After?discussion?with?Hematology- Oncology,?we?agree?that?she?does?not?need?to?be?on?opioid?medications?and?we?hav e?been?working?on?weaning?her?down. Patient?is?rather?resistant?to?weaning. ??She?has?complaints?of?bleeding?which?she?attributes?to?lack?of?opioid.??She?phelan s?complaints?of?joint?pain?which?would?likely?be?best?treated?by?Rheumatology.?? She?has?complaints?of?nausea?which?may?b e?secondary?to?opioid?withdrawal?initially?when?we?make?changes?in?the?medicatio n?but?she?has?not?had?a?change?in?medication?for?quite?some?time,?making?this?le ss?likely. Patient?frequently?goes?to?the?ED?when?she?disagrees?with?treatment?plan. I?currently?do?not?see?any?objective?findings?such?as?high?heart?rate,?sweating, ?high?blood?pressure, that?would?support?increasing?or?maintaining?current? opioid?level.??We?discussed?today?that?she?will?continue?current?medication?and? at?our?next?visit, I?intend?to?wean?down?further. Recent?pill?counts?were?appropriate. (2) Hematuria: Code(s): R31.9 - Hematuria, unspecified Plan: Patient?has?complaints?of?vaginal?bleeding?and?hematuria. CBC?these?have?been?steady Senior Compensation Analyst?has?seen?her?and?evaluated,?finding?no?significant?bleeding She?notes?some?burning?when?she?pees?and?I?have?given?her?a?script?for?cephalexi n?today?and?will?send?urine?for?urinalysis?and?culture (3) Chronic pain: Code(s): G89.29 - Other chronic pain Plan: As?above,?no?objective?findings?of?increased?pain Advised?referral?back?to?pain?management?and?patient?declines Follow-up?with Rheumatology?for?joint?pain Will?continue?to?monitor (4) Cervical cancer: Code(s): C53.9 - Malignant neoplasm of cervix uteri, unspecified Plan: Has?done?very?well?with? therapy.??Follow-up?with?Hematology-Oncology?as?recommended (5) Dysuria: Code(s): R30.0 - Dysuria Plan: As?above (6) Hematuria: Code(s): R31.9 - Hematuria, unspecified Plan: As?above Medications: New cephalexin 500 mg PO Q12H 5 days 10 caps 0RF Coding Level of Care Code Est Pt Level 4 (26252) Diagnoses Opioid dependence F11.20 Hematuria R31.9 Chronic pain G89.29 Cervical cancer C53.9 Dysuria R30.0
== END 2023-01-01 14:53 | disposition home or self-care (01) ==
PROVIDERS: PCP Family Medicine; Visit Provider Family Medicine
DX: F11.20 Opioid dependence, uncomplicated (principal); R31.9 Hematuria, unspecified; G89.29 Other chronic pain; C53.9 Malignant neoplasm of cervix uteri, unspecified; R30.0 Dysuria; N39.0 Urinary tract infection, site not specified
CPT/HCPCS: 81002; 99214

== ENCOUNTER 2023-01-08 13:15 | Outpatient (AMB) | payer MEDICARE, SELFPAY ==
--- NOTE | 2023-01-08 13:17 | MHC.PC.OV ---
Vital Signs 01/08/23 13:18 Height 5 ft 5 in Weight 126 lb 4 oz BMI 21.0 BP 138/78 Blood Pressure Location Lt brachial Position Sitting Respiration 13 Pulse 71 Pulse Source Pulse Oximeter Temp 98.7 F Temp Source Oral Pulse Oximetry (%) 98 Oxygen Delivery Method Room Air Intake Visit Reasons: f/u chronic pain and opioid abuse Intake Note: Patient is here for a follow up on her medications for chronic pain. Customer Management Specialist Required: No Accompanied by: Self / Same As Patient Allergies buprenorphine [Belbuca] Allergy (Intermediate, Verified 01/08/23 13:37) Anaphylaxis Tobacco use date assessed: 01/01/23 Fall risk assessment: No Falls in past year Last assessed Fall Risk: 01/08/23 HPI f/u chronic pain and opioid abuse HPI Details 67 y/o female presents to f/u opioid abuse/chronic pain. Pt has ongoing concerns about her pain. She states she feels she would not be able to walk soon - knee pain?and?followed?by?rheumatology. She reports ongoing low?abd. pain. She has an appt. with rheumatology soon. [facility] Medical History Cervical cancer Opiate abuse, episodic Osteoarthritis of both knees Primary osteoarthritis of knees, bilateral Osteopenia determined by x-ray Seropositive rheumatoid arthritis Back pain Surgical History History of D&C History of tonsillectomy History of appendectomy History of cholecystectomy Family History Father Acute CVA (cerebrovascular accident) Mother Hypertension Hypercholesterolemia Brother Liver transplant status Family history of thyroid problem Social History Household Members: Children Housing: House Are you a primary ambulatory care coordinator to a significant other at home: Yes (mom) Do you presently have visiting nurse or other home services: No Alcohol intake: never Patient Tobacco Use Status: Former Tobacco user Quit Date: 2016 Tobacco use type: Cigarette e-Cigarette/Vaping Use: Never Used Second Hand Smoke Exposure: No service: No 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 Cognitive needs: No Hearing needs: No Vision needs: No Questionnaire Thrive Questionnaire Date Thrive assessed: 08/18/21 STEPHIE-7 AMB Questionnaire STEPHIE-7 Date STEPHIE - 7 assessed: 10/19/22 Source: Developed by Drs. Kevin Kenney, Joanie Swan, Marino Medina and colleagues, with an educational july from [employer]. Review of Systems Const Denies chills, Denies fatigue, Denies fever(s), Denies headache(s) and Denies weakness ENT Denies dizziness and Denies headache(s) Card Denies dyspnea Resp Denies cough, Denies dyspnea, Denies wheezing and Denies other (shortness of breath) Musc Denies numbness and Denies tingling Neuro Denies dizziness, Denies headache(s), Denies numbness, Denies tingling and Denies weakness Psych Denies anxiety and Denies depression Endo Denies fatigue Aller/Immun Denies wheezing Physical exam (Primary Care) Vital Signs: Last Vital Signs Temp 98.7 F 01/08/23 13:18 Pulse 71 01/08/23 13:18 Resp 13 01/08/23 13:18 BP 138/78 01/08/23 13:18 Pulse Ox 98 01/08/23 13:18 Oxygen Delivery Method Room Air 01/08/23 13:18 BMI result Body Mass Index 21.0 Tobacco/Smoking Status: Tobacco use Status Tobacco use date assessed 01/01/23 01/08/23 13:24 Patient Tobacco Use Status Former Tobacco user 01/08/23 13:24 Tobacco use type Cigarette 01/08/23 13:24 e-Cigarette/Vaping Use Never Used 01/08/23 13:24 Thrive Assessment: Date of Thrive Assessment Date Thrive assessed 08/18/21 01/08/23 13:24 Const General: well developed; No acute distress Nutritional Appearance: well nourished Orientation/consciousness: patient oriented x3 [facility] Head: Yes normocephalic and Yes atraumatic Eyes General: appearance normal, both eyes and all related structures Pupils: Equal, round and reactive pupils present EOM: EOMs intact bilaterally Resp Effort & Inspection: normal respiratory effort Neuro General: patient oriented x3 and gait normal Cranial nerves: Yes Equal, round and reactive pupils present Psych Affect: normal affect Results AMB Urinalysis Dipstick UR Leukocytes Negative Last Edit by Chitra Cervantes CMA on 01/08/23 13:54 UR Nitrite Negative Last Edit by Chitra Cervantes CMA on 01/08/23 13:54 UR Urobilinogen Normal Last Edit by Chtira Cervantes CMA on 01/08/23 13:54 UR Protein 300 Last Edit by Chitra Cervantes, ERIN on 01/08/23 13:54 UR Ph 5.0 Last Edit by Chitra Cervantes, ERIN on 01/08/23 13:54 UR Blood Negative Last Edit by Chitra Cervantes CMA on 01/08/23 13:54 UR Specific [place] 1.010 Last Edit by Chitra Cervantes CMA on 01/08/23 13:54 UR Ketone 15 Last Edit by Chitra Cervantes CMA on 01/08/23 13:54 UR Bilirubin Negative Last Edit by Chitra Cervantes CMA on 01/08/23 13:54 UR Glucose Negative Last Edit by Chitra Cervantes CMA on 01/08/23 13:54 Results Reviewed Results Reviewed: Laboratory Last Values Urine pH (Clinic) 5.0 01/08/23 13:49 Specific [place] (Clinic) 1.010 01/08/23 13:49 Ur Protein (Clinic) 300 01/08/23 13:49 Ur Ketones (Clinic) 15 01/08/23 13:49 Urine Blood (Clinic) Negative 01/08/23 13:49 Urine Nitrite Negative 01/08/23 13:49 Urine Bilirubin (Clinic) Negative 01/08/23 13:49 Urobilinogen (Clinic) Normal 01/08/23 13:49 Leukocyte Esterase (Clinic) Negative 01/08/23 13:49 Urine Glucose (Clinic) Negative 01/08/23 13:49 Assessment and Plan Assessment & Plan (1) Opiate abuse, episodic: Code(s): F11.10 - Opioid abuse, uncomplicated (2) Chronic pain: Code(s): G89.29 - Other chronic pain Plan: Ongoing?complaints?of?chronic?pain?in?knees?and?also?complaints?of?low?abdominal?pain/discomfort. History?of?cervical?cancer?which?responded?very?well?to?treatment?and?her?hematology?oncologist?had?felt?she?no?longer?needed?pain?medication.??After?discussion?with?Heme-Onc,?I?agree?that?she?does?not?need?pain?medication?for?cervical?cancer?and?she ?appears?to?be?in?remission?for?this. She?does?have?bilateral?knee?pain?and?history?of?osteoarthritis?for?which?she?sees?Rheumatology?and?has?an?appointment?in?1?week.??She?has?tolerated?naproxen?in?the?past?and?my?recent?notes?record?that?she?says?she?was?using?this.??She?now?says?that? this?medication?causes?palpitations. Offered?meloxicam?and?she?will?try?this.??She?will?follow-up?with?rheumatology?regarding?her?knees. She?also?has?some?low?abdominal?pain?and?history?of?vaginal?bleeding.??More?recently,?at?the?ED?she?has?been?seen?by?stevedore dock?who?felt?she?no?longer?had?significant?bleeding?and?also?felt?it?was?okay?for?her?to?use?NSAIDs. H&H?has?been?improving?and?at?her?last?lab?draw?in?November,?H&H?was?within?normal?limits. Still?has?some?ongoing?low?pelvic?pain?however?so?I?will?refer?her?to?stevedore dock. Will?also?give?her?a?script?for?MiraLax Decreasing?oxycodone?from?5?mg?every?8?hours?to?2.5?mg?a.m.,?2.5?mg?afternoon?and?5.0?mg?at?bedtime.??Will?follow-up?with?her?again?in?about?14?days. As?she?is?still?complaining?of?generalized?pain?and?I?had?referred?her?to?pain?management?though?she?declined?this,?we?have?rediscussed?this?and?she?accepts?a?referral?to?pain?management.??Will?ask?for?any?adjunct?pain?control?modalities?and?recommen dations?regarding?pain?control?requirements. (3) Frequent UTI: Code(s): N39.0 - Urinary tract infection, site not specified Plan: Urine?dip?negative (4) Abdominal pain: Code(s): R10.9 - Unspecified abdominal pain Plan: Refer?to?st[facility]ed[facility]?for?abdominal?pain?and?low?pelvic?pain Orders: Orders AMB Urinalysis Dipstick Today Z13.9 - Encounter for screening, unspecified Referrals MOBILE DEVICE DEVELOPER Referral R10.2 - Pelvic and perineal pain, R10.9 - Unspecified abdominal pain Pain Management Referral G89.29 - Other chronic pain Medications: New polyethylene glycol 3350 (Miralax) 17 grams PO DAILY 14 ea 0RF 14 days Changed From oxycodone Partial Fill upon patient request. 5 mg PO Q8H 15 days PRN 45 tabs 0RF pain To oxycodone 2.5mg AM, 2.5mg Afternoon, 5mg Bedtime. Partial Fill upon patient request. 15 days 30 tabs 0RF pain Coding Level of Care Code Est Pt Level 4 (47293) Diagnoses Opiate abuse, episodic F11.10 Chronic pain G89.29 Frequent UTI N39.0 Abdominal pain R10.9
[2023-01-08 13:18] VITALS: BP 138/78; PULSE 71; RESP 13; TEMP 37.1; O2SAT 98; BMI 21.0
== END 2023-01-08 14:10 | disposition home or self-care (01) ==
PROVIDERS: PCP Family Medicine; Visit Provider Family Medicine
DX: F11.10 Opioid abuse, uncomplicated (principal); G89.29 Other chronic pain; N39.0 Urinary tract infection, site not specified; R10.9 Unspecified abdominal pain; Z13.9 Encounter for screening, unspecified
CPT/HCPCS: 81002; 99214

== ENCOUNTER 2023-01-08 14:00 | Outpatient (REF) | payer MEDICARE, SELFPAY ==
[2023-01-08 18:37] LABS: Amphetamine Screen Urine Not Detected (Not Detect); Barbiturates, Urine Not Detected (Not Detect); Benzodiazepines Screen Urine Not Detected (Not Detect); Cannabinoid Screen Urine Not Detected (Not Detect); Cocaine Screen Urine Not Detected (Not Detect); Fentanyl, urine Not Detected (Not Detect); Opiate Screen Urine POSITIVE (Not Detect); Phencyclidine Screen Urine Not Detected (Not Detect)
== END 2023-01-08 14:01 | disposition home or self-care (01) ==
LOC: HO.LAB 14:00
PROVIDERS: Visit Provider Family Medicine
DX: F41.8 Other specified anxiety disorders (principal)
CPT/HCPCS: 80307

== ENCOUNTER 2023-01-15 09:14 | Outpatient (AMB) | payer MEDICARE, SELFPAY ==
--- NOTE | 2023-01-15 09:18 | MHC.OFFVIS ---
Intake Vital Signs 01/15/23 09:19 Height 5 ft 5 in Weight 122 lb 9.232 oz BMI 20.4 BP 130/70 Blood Pressure Location Rt brachial Position Sitting Pulse 94 Pulse Source Pulse Oximeter Temp 97.1 F Temp Source Skin Pulse Oximetry (%) 96 Oxygen Delivery Method Room Air Intake Visit Reasons: OA Intake Note: Patient presents today to follow up on RA and possible benyn knee injections. Would also like injections on wrist. Reports chest pain when deep breathing. 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 I had injected her knees bilaterally at her last visit in October. I also put her back on a standing dose of prednisone at 5 mg b.i.d.. Apparently she decided that was not a good idea and she did taper off it about a week ago. Consequently she continues to complain of pains all over. Some of these are in joints, some pains are in the abdomen and her muscles. Clearly there are more symptoms in the hands, knees and wrists. Her chart lists her as taking celecoxib and meloxicam but she thinks these are causing stomach upset so she has stopped them. Gabapentin is also listed but I am not sure exactly when she is taking it. She feels the corticosteroid injections the knees were quite helpful but is not sure the prednisone was that helpful. Additionally she was supposed to be taking the alendronate for her osteoporosis but stopped that because of GI affects. She complains intermittently of constipation, nausea, and abdominal pain. She mostly wants to discuss her need to continue taking narcotic analgesics. She has upset and does not understand the attempts to try to taper her doses of narcotics. She remains with problems with constipation. There have not been recent episodes of hematuria or vaginal bleeding. She is a number of months now from her last chemotherapy and seems to be doing well with respect to the cancer so there apparently was some response of benefit to the chemo. She is not sure with the plans for chemotherapy are in the future. [facility] Medical History Cervical cancer Opiate abuse, episodic Osteoarthritis of both knees Primary osteoarthritis of knees, bilateral Osteopenia determined by x-ray Seropositive rheumatoid arthritis Back pain Surgical History History of D&C History of tonsillectomy History of appendectomy History of cholecystectomy Family History Father Acute CVA (cerebrovascular accident) Mother Hypertension Hypercholesterolemia Brother Liver transplant status Family history of thyroid problem Social History Household Members: Children Housing: House Are you a primary career development manager to a significant other at home: Yes (mom) Do you presently have visiting nurse or other home services: No Alcohol intake: never Patient Tobacco Use Status: Former Tobacco user Quit Date: 2016 Tobacco use type: Cigarette e-Cigarette/Vaping Use: Never Used Second Hand Smoke Exposure: No service: No 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 Cognitive needs: No Hearing needs: No Vision needs: No Review of Systems Const Details: Low energy at times. Her weight has been fluctuating. Negative for appetite change, fever, chills, malaise ENT Details: Some oral dryness. No dysphagia. Negative for hearing change, tinnitus, oral ulcer, nose bleeds. Card Details: Negative chest pain, edema and syncope Resp Details: Negative for SOB, cough and wheezing GI Details: Intermittent crampy abdominal pains, nausea, and constipation. Negative indigestion/heartburn, nausea,bowel changes, diarrhea and bloody stool. Psych Details: Negative for anxiety, depression and stress Endo Details: Negative for polyuria and polydypsia Andrew/Lymph Details: Negative for excessive bruising or bleeding. Physical Exam Vital Signs: Last Vital Signs Temp 97.1 F 01/15/23 09:19 Pulse 94 01/15/23 09:19 BP 130/70 01/15/23 09:19 Pulse Ox 96 01/15/23 09:19 Oxygen Delivery Method Room Air 01/15/23 09:19 BMI result Body Mass Index 20.4 APPEARANCE: Patient in no acute distress EYES no redness, pupils equal and reactive to light, eyelids normal ABD: Normal bowel sounds, no organomegaly, masses; there is mild diffuse tenderness. EXTREMITIES: No edema, no calf tenderness, normal peripheral pulses. JOINT EXAM: ??Cervical Spine:.? Full range of motion without pain; no tenderness. Thoracic Spine:.? No scoliosis.? No tenderness on palpation. Lumbar Spine:.? Alignment normal.?? mild pain with extremes of motion.? No tenderness. Chest Wall:.? No tenderness, swelling, increased warmth or erythema. Hands:? right:? There is swelling of all the MCP joints, the 1st 3 are moderately tender.? There is thickening of the 2nd 3rd PIP joints with slight tenderness.? There is pain with firm gripping of the hands.? Left:? There is tglk-ta-rorxvgam swelling and tenderness of the 1st 3 MCPs and the 2nd through 4th PIP joints.? There is pain with use of the hand.? Wrists:??Right: Moderate swelling and tenderness. There is moderate pain with more than 20 degrees flexion or extension but no redness or warmth. Left: mild to moderate swelling, mild to moderate tenderness and pain with more than? 45 degrees flexion extension.? No redness or warmth. Elbows. Normal pain-free range of motion without tenderness, swelling, increased warmth or erythema. Shoulders:.?? Full range of motion without pain. No tenderness, weakness, swelling, increased warmth or erythema. Hips:.? Full range of motion without pain. Hip bursa:.? No tenderness. Knees: ? Right:? Mild pain with full? attempts at full extension.? She lacks about 5-10 degrees of full extension;there is pain with flexion beyond 90 degrees.? There is a gkoo-gr-ammpshxg effusion with some synovial thickening, mild tenderness but no redness or warmth.? Left:? Mild to moderate pain with more than 60 degrees of flexion or extension..? This knee also has 10 degree flexion contracture and she can with pain flex to 90 degrees.? There is a moderate effusion, a bit larger than on the right. She has moderate synovial thickening of irhb-xj-pyuzlela tenderness but no redness or warmth. Ankles:?? With mild pain at the extremes of motion and some moderate tenderness with slight swelling but no increased warmth or erythema. Feet:? Normal pain-free range of motion. This would 1st MTP bony enlargement there are not tender. In general the toes in the MTPs are without, swelling, increased warmth or erythema. ? Office Procedures Joint Injection/Drain Joint Injection/Drain Details: left wrist ingection - see below Injected: 40 mg of, Kenalog, with 0.5 mL of and 1% plain lidocaine Coding Details: With the patient's consent the right wrist was prepped with ChloraPrep and alcohol. The skin was anesthetized with 1.5 cc of 1% lidocaine. The wrist was then injected with 40 mg of triamcinolone and 0.5 cc of I % lidocaine. The patient tolerated the procedure with no immediate adverse effects. 45142 - Medium joint Procedure code (CPT) selection complete Assessment & Plan Assessment & Plan (1) Osteoporosis: Code(s): M81.0 - Age-related osteoporosis without current pathological fracture (2) Seropositive rheumatoid arthritis: Code(s): M05.9 - Rheumatoid arthritis with rheumatoid factor, unspecified Plan The rheumatoid arthritis with still significant synovitis evident on exam. Again I expressed to her that we did not have alternative agents that would be safe for her to use. The prednisone remains a partially agent if she would stay on it. She has concerns about the potential for side effects such as osteoporosis. She does have a history of having received the alendronate for a few months so that would be given some protection with that. At present however she is getting GI side effects so I do not think we can continue the alendronate. We should put her on some zoledronic acid infusions. I will recheck her renal function and chemistry to see if that would be feasible. We may also have to get clearance from her insurance company. Again we had a long discussion about the potential benefit of low-dose prednisone for her RA. I think she expects somewhat unrealistic benefits from any of the medications we give her at this point. She does not seem to want to taper the narcotics so she needs to discuss that with her primary doctor. Her malignancy, at least from clinical standpoint does not seem to be progressing reflecting, a likely some benefit from the chemotherapy she received earlier this year. The right wrist seems to be most problematic for her today so a corticosteroid injection there is a reasonable option. We reviewed potential benefits and risk of such injections. With the patient's consent the right wrist was prepped with ChloraPrep and alcohol. The skin was anesthetized with 1.5 cc of 1% lidocaine. The wrist was then injected with 40 mg of triamcinolone and 0.5 cc of I % lidocaine. The patient tolerated the procedure with no immediate adverse effects. I re-did her prescription for prednisone at 5 mg b.i.d.. She could start with 10 mg this afternoon. If the blood work looks like it is okay we will try to get insurance pain minute schedule a zoledronic acid infusion. That should cover her for osteoporosis treatment for the next 12 months. A follow-up in 5 or 6 weeks is reasonable. Orders: Orders Comprehensive Met. Panel Today M81.0 - Age-related osteoporosis without current pathological fracture Vitamin D 25-OH (D2 and D3) Today M81.0 - Age-related osteoporosis without current pathological fracture AMB Joint Injection/Aspiration Today M05.9 - Rheumatoid arthritis with rheumatoid factor, unspecified Medications: New prednisone 5 mg PO BID 60 tabs 2RF M05.9 - Rheumatoid arthritis with rheumatoid factor, unspecified Discontinued celecoxib Discontinued Reason: Patient Completed Course 200 mg PO BID 30 days PRN 60 caps 1RF pain meloxicam Discontinued Reason: Patient Completed Course 15 mg PO DAILY 30 days 30 tabs 2RF alendronate Discontinued Reason: Doctor's Order 70 mg PO QWEEK 12 tabs 1RF M81.0 - Age-related osteoporosis without current pathological fracture Coding Level of Care Code Est Pt Level 4 (96430) Diagnoses Osteoporosis M81.0 Seropositive rheumatoid arthritis M05.9 CPT Codes Coding - 30344 Medium joint: 58200 - Medium joint ([id number])
[2023-01-15 09:19] VITALS: BP 130/70; PULSE 94; TEMP 36.2; O2SAT 96; BMI 20.4
== END 2023-01-15 10:14 | disposition home or self-care (01) ==
PROVIDERS: PCP Family Medicine; Visit Provider Internal Medicine Rheumatology
DX: M05.79 Rheumatoid arthritis with rheumatoid factor of multiple sites without organ or systems involvement (principal); M81.0 Age-related osteoporosis without current pathological fracture
CPT/HCPCS: 20605; 99214

== ENCOUNTER → 2023-01-15 09:14 | Outpatient (BNVA) | payer MEDICARE, SELFPAY | PROVIDERS: PCP Family Medicine; Visit Provider Internal Medicine Rheumatology | DX: M17.0 Bilateral primary osteoarthritis of knee (principal); M05.9 Rheumatoid arthritis with rheumatoid factor, unspecified; M85.80 Other specified disorders of bone density and structure, unspecified site; F11.10 Opioid abuse, uncomplicated | CPT/HCPCS: 20605; 36415; 80053; 82306; 99212 ==

== ENCOUNTER 2023-01-15 10:32 | Outpatient (REF) | payer MEDICARE, SELFPAY ==
[2023-01-15 14:16] LABS: Alanine Aminotransferase 19 U/L (0-31); Albumin Level 3.7 g/dL (3.5-5.0); Alkaline Phosphatase 302 U/L (39-117); Anion Gap 11 (12-20); Aspartate Amino Transferase 24 U/L (5-31); Bilirubin Total 0.6 mg/dL (0.0-1.0); Blood Urea Nitrogen 7 mg/dL (9-16); Calcium 9.7 mg/dL (8.4-10.2); Carbon Dioxide 30 mmol/L (22-29); Chloride 99 mmol/L (96-108); Estimated Glomerular Filt Rate > 60; Glucose Random 108 mg/dL (60-115); Potassium 3.9 mmol/L (3.3-5.1); Sodium 136 mmol/L (135-145); Total Protein 7.6 g/dL (6.5-8.0)
[2023-01-21 11:33] LABS: Vitamin D 25-OH, D2 <4 ng/mL; Vitamin D 25-OH, D3 24 ng/mL; Vitamin D 25-OH, Total 24 ng/mL (30-100)
== END 2023-01-15 10:33 | disposition home or self-care (01) ==
LOC: HO.10HDL 10:32
PROVIDERS: Visit Provider Internal Medicine Rheumatology
DX: Z13.89 Encounter for screening for other disorder (principal)
CPT/HCPCS: 36415; 80053; 82306

== ENCOUNTER 2023-01-18 12:52 | Outpatient (AMB) | payer MEDICARE, SELFPAY ==
[2023-01-18 13:04] VITALS: BP 112/60; PULSE 80; RESP 12; O2SAT 98; BMI 19.9
--- NOTE | 2023-01-18 13:04 | MHC.PC.OV ---
Vital Signs 01/18/23 13:04 Height 5 ft 5 in Weight 119 lb 6 oz BMI 19.9 BP 112/60 Blood Pressure Location Lt brachial Position Sitting Respiration 12 Pulse 80 Pulse Source Pulse Oximeter Pulse Oximetry (%) 98 Oxygen Delivery Method Room Air Intake Visit Reasons: follow up opioid wean Intake Note: Patient is here with her son- Kevin. Patient is confused about her medical conditions and would like to discuss her health and care. Patient reports she feels sick on her medication doses prior to the weaning. Morphine at 30mg Q12 hours, Oxycodone 5mg Q12 hours, lorazepam is okay the way it is. Patient is wondering why she is being reduced in the medications if she is dying. Patient reports her stool is watery and black x4-5 days. Patient reports she has been very sick. Dry Transfer Man Required: No Accompanied by: Son Allergies buprenorphine [Belbuca] Allergy (Intermediate, Verified 01/18/23 13:19) Anaphylaxis Tobacco use date assessed: 01/01/23 HPI follow up opioid wean HPI Details Pt presents to f/u opioid weaning. She continues to be combative about the plan to wean down her meds. I?have?decreased?her?oxycodone?from?a?total?daily?dose?of?15?mg?daily?down?to?a?total?daily?dose?of?10?mg?daily.??I?have?continued?her?morphine?ER?15?mg?twice?a?day?without?change. Had?spoken?to?her?hematology?oncologist?who?felt?that?she?no?longer?required?opiate?levels?of?pain?as?she?had?responded?so?well?to?treatments?for?cervical?cancer.? Patient?does?have?osteoarthritis?of?the?knees?and?has?an?appointment?with?rheumatology?coming?up?next?week.? ?I?have?also?referred?her?to?pain?management?for?evaluation?for?adjunct?pain?control?modalities?and?overall?pain?medication?requirements. Pt has complaints of watery and black stools x4-5 days. [facility] Medical History Cervical cancer Opiate abuse, episodic Osteoarthritis of both knees Primary osteoarthritis of knees, bilateral Osteopenia determined by x-ray Seropositive rheumatoid arthritis Back pain Surgical History History of D&C History of tonsillectomy History of appendectomy History of cholecystectomy Family History Father Acute CVA (cerebrovascular accident) Mother Hypertension Hypercholesterolemia Brother Liver transplant status Family history of thyroid problem Social History Household Members: Children Housing: House Are you a primary health care coach to a significant other at home: Yes (mom) Do you presently have visiting nurse or other home services: No Alcohol intake: never Patient Tobacco Use Status: Former Tobacco user Quit Date: 2016 Tobacco use type: Cigarette e-Cigarette/Vaping Use: Never Used Second Hand Smoke Exposure: No service: No 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 Cognitive needs: No Hearing needs: No Vision needs: No Questionnaire Thrive Questionnaire Date Thrive assessed: 08/18/21 STEPHIE-7 AMB Questionnaire STEPHIE-7 Date STEPHIE - 7 assessed: 10/19/22 Source: Developed by Drs. Kevin Kenney, Joanie Swan, Marino Medina and colleagues, with an educational july from [employer]. Review of Systems Const Denies chills, Denies fatigue, Denies fever(s), Denies headache(s) and Denies weakness ENT Denies dizziness and Denies headache(s) Card Denies chest pain, Denies lightheadedness, Denies dyspnea and Denies other (Palpitations) Resp Denies cough, Denies dyspnea, Denies wheezing and Denies other ( shortness of breath) Musc Denies numbness and Denies tingling Neuro Denies dizziness, Denies headache(s), Denies numbness, Denies tingling, Denies paresthesias and Denies weakness Psych Denies anxiety and Denies depression Endo Denies fatigue Aller/Immun Denies wheezing Physical exam (Primary Care) Vital Signs: Last Vital Signs Pulse 80 01/18/23 13:04 Resp 12 01/18/23 13:04 BP 112/60 01/18/23 13:04 Pulse Ox 98 01/18/23 13:04 Oxygen Delivery Method Room Air 01/18/23 13:04 BMI result Body Mass Index 19.9 Tobacco/Smoking Status: Tobacco use Status Tobacco use date assessed 01/01/23 01/18/23 13:11 Patient Tobacco Use Status Former Tobacco user 01/18/23 13:11 Tobacco use type Cigarette 01/18/23 13:11 e-Cigarette/Vaping Use Never Used 01/18/23 13:11 Thrive Assessment: Date of Thrive Assessment Date Thrive assessed 08/18/21 01/18/23 13:11 Const General: no acute distress and well developed Nutritional Appearance: well nourished Orientation/consciousness: patient oriented x3 HENMT Head: Yes normocephalic and Yes atraumatic Eyes General: appearance normal, both eyes and all related structures Pupils: Equal, round and reactive pupils present EOM: EOMs intact bilaterally Resp Effort & Inspection: normal respiratory effort Auscultation: clear to auscultation bilaterally Cardio Rate: regular rate Rhythm: regular rhythm Heart sounds: S1 normal heart sound present, S2 normal heart sound present, no gallops, no murmurs and no rubs Neuro General: patient oriented x3 and gait normal Cranial nerves: Yes Equal, round and reactive pupils present Psych Affect: normal affect Assessment and Plan Assessment & Plan (1) Chronic, continuous use of opioids: Code(s): F11.90 - Opioid use, unspecified, uncomplicated Plan: 67-year-old?woman?with?history?of?metastatic?cervical?cancer?who?had?been?on?chronic?continuous?use?of?opioids,?presents?for?follow-up. Had?previously?had?a?long?discussion?with?her?Hematology-Oncology?specialist?who?felt?that?she?had?responded?remarkably?well?to chemotherapy?and?no?evidence?of?cancer?progression?at?present. Heme-Onc?had?felt?she?no?longer?needed?high?doses?of?opioid?medication?and?I?agree. She?does?have?joint?pain?and?is?followed?by?rheumatology. After?discussion?with?Hematology-Oncology?and?review?of?her?medications,?I?had?discussed?with?the?patient?that?I?feel?her?pain?can?be?controlled?on?other?medications?or?on?much?lower?doses?of?opioids. Had?a?long?discussion?with?patient?and?her?son?today?regarding?this. Currently?patient?is?having?some?stomach?discomfort?and?this?may?be?due?to?lower?doses?of?opioids?or?may?be?due?to?other?problems?including?colitis?or?gastroenteritis.??She?does?have?some?abnormal?stools?as?well.??I?am?checking?stool?studies?regardin g?this. Holding?off?on?weaning?any?further?this?visit?to?give?her?body?more?time?to?adjust. We?discussed?that?she?should?be?trying?to?rely?further?on?medications?like?celecoxib?for?arthritis?and?machine featheredger and reducer?had?said?that?her?machine featheredger and reducer?bleeding?was?not?significant?enough?to?rule?out?using?these.??Also?CBC?had?been?okay;?last?H&H?shows?no?anemia. I?have?also?referred?her?to?pain?management?and?requested?that?they?help?advise?on?ongoing?opiate?wean?though?I?will?continue?to?prescribe?this?medication?during?weaning?rather?than?pain?management,?and?I?have?asked?them?to?also?advise?on?other?modal ities?of?pain?control. She?is?also?followed?by?Hematology-Oncology?and?followed?by?machine featheredger and reducer. May?need?a?referral?to?gastroenterology. Mild?weight?loss?from?prior?and?I?am?watching?this?also. I?am?following?her?closely?every?2?weeks. (2) Chronic pain: Code(s): G89.29 - Other chronic pain Plan: As?above (3) Cervical cancer: Code(s): C53.9 - Malignant neoplasm of cervix uteri, unspecified Plan: Follow-up?with?Hematology-Oncology?as?recommended (4) Osteoarthritis of knees, bilateral: Code(s): M17.0 - Bilateral primary osteoarthritis of knee Plan: Follow-up?with?rheumatology?as?recommended (5) Abnormal stools: Code(s): R19.5 - Other fecal abnormalities Plan: Checking?stool?study Orders: Orders GI Panel Today R19.5 - Other fecal abnormalities Complete Blood Count Auto Diff Today Z00.00 - Encounter for general adult medical examination without abnormal findings Comprehensive Met. Panel Today F41.8 - Other specified anxiety disorders Medications: Refilled morphine ER Partial Fill upon patient request. 15 mg PO Q12H 15 days 30 tabs 0RF oxycodone 2.5mg AM, 2.5mg Afternoon, 5mg Bedtime. Partial Fill upon patient request. 15 days 30 tabs 0RF pain celecoxib 200 mg PO BID PRN 60 caps 1RF pain 30 days Coding Level of Care Code Est Pt Level 5 (84382) Diagnoses Chronic, continuous use of opioids F11.90 Chronic pain G89.29 Cervical cancer C53.9 Osteoarthritis of knees, bilateral M17.0 Abnormal stools R19.5
== END 2023-01-18 13:45 ==
PROVIDERS: PCP Family Medicine; Visit Provider Family Medicine
DX: F11.90 Opioid use, unspecified, uncomplicated (principal); G89.29 Other chronic pain; C53.9 Malignant neoplasm of cervix uteri, unspecified; M17.0 Bilateral primary osteoarthritis of knee; R19.5 Other fecal abnormalities
CPT/HCPCS: 99215

== ENCOUNTER 2023-01-18 16:11 | Outpatient (REF) | payer MEDICARE, SELFPAY ==
[2023-01-19 09:07] LABS: Adenovirus F 40/41 Not Detected (Not Detect.); Astrovirus Not Detected (Not Detect.); Campylobacter Not Detected (Not Detect.); Cryptosporidium Not Detected (Not Detect.); Cyclospora cayetanensis Not Detected (Not Detect.); E. coli EAEC Not Detected (Not Detect.); E. coli EPEC Not Detected (Not Detect.); E. coli ETEC Not Detected (Not Detect.); E. coli STEC Not Detected (Not Detect.); Entamoeba histolytica Not Detected (Not Detect.); Giardia lamblia Not Detected (Not Detect.); Norovirus GI/GII Not Detected (Not Detect.); Plesiomonas shigelloides Not Detected (Not Detect.); Rotavirus A Not Detected (Not Detect.); Salmonella Not Detected (Not Detect.); Sapovirus Not Detected (Not Detect.); Shigella sp./EIEC Not Detected (Not Detect.); Vibrio Not Detected (Not Detect.); Vibrio Cholerae Not Detected (Not Detect.); Yersinia enterocolitica Not Detected (Not Detect.)
== END 2023-01-18 16:12 | disposition home or self-care (01) ==
LOC: HO.LNP 16:11
PROVIDERS: Visit Provider Family Medicine
DX: R19.5 Other fecal abnormalities (principal)
CPT/HCPCS: 87507

== ENCOUNTER 2023-01-29 12:45 | Outpatient (AMB) | payer MEDICARE, SELFPAY ==
[2023-01-29 12:46] VITALS: BP 126/64; PULSE 84; RESP 13; O2SAT 96; BMI 20.5
--- NOTE | 2023-01-29 12:46 | MHC.PC.OV ---
Vital Signs 01/29/23 12:46 Height 5 ft 5 in Weight 123 lb 8 oz BMI 20.5 BP 126/64 Blood Pressure Location Lt brachial Position Sitting Respiration 13 Pulse 84 Pulse Source Pulse Oximeter Pulse Oximetry (%) 96 Oxygen Delivery Method Room Air Intake Visit Reasons: f/u opioid weaning Intake Note: Patient is here for a follow up for opioid weaning. Patient reports she ended up at [facility] for nausea and vomiting. 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 Pt reports ongoing nausea/vomiting and abd. pain. Had recently been to the ED for this and work-up had been negative. HPI Comments History of Present Illness Details Documentation assistance for Dean Villalba MD, was provided by Yayo Delong,? Urban Sociologist on 01/29/2023 1:19 PM EST. I, Dr. Villalba, have read, observed, and verified documentation.? [facility] Medical History (Updated 02/02/23 @ 18:29 by Tashi Cortez MD) Squamous cell carcinoma of cervix Complex regional pain syndrome i of lower limb, bilateral Anxiety with depression Chronic pain syndrome Osteoporosis Cervical cancer Opiate abuse, episodic Osteoarthritis of both knees Primary osteoarthritis of knees, bilateral Seropositive rheumatoid arthritis Back pain Surgical History History of D&C History of tonsillectomy History of appendectomy History of cholecystectomy Family History Father Acute CVA (cerebrovascular accident) Mother Hypertension Hypercholesterolemia Brother Liver transplant status Family history of thyroid problem Household Members: Children Housing: House Are you a primary child care worker to a significant other at home: Yes (mom) Do you presently have visiting nurse or other home services: Yes Alcohol intake: never Patient Tobacco Use Status: Former Tobacco user Quit Date: 2016 Tobacco use type: Cigarette e-Cigarette/Vaping Use: Never Used Second Hand Smoke Exposure: No service: No 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 Cognitive needs: No Hearing needs: No Vision needs: No Questionnaire Thrive Questionnaire Date Thrive assessed: 08/18/21 STEPHIE-7 AMB Questionnaire STEPHIE-7 Date STEPHIE - 7 assessed: 10/19/22 Source: Developed by Drs. Kevin Kenney, Joanie Swan, Marino Medina and colleagues, with an educational july from [employer] Review of Systems Const Denies chills, Denies fatigue, Denies fever(s), Denies headache(s) and Denies weakness ENT Denies dizziness and Denies headache(s) Card Denies dyspnea Resp Denies cough, Denies dyspnea, Denies wheezing and Denies other (shortness of breath) Musc Denies numbness and Denies tingling Neuro Denies dizziness, Denies headache(s), Denies numbness, Denies tingling and Denies weakness Psych Denies anxiety and Denies depression Endo Denies fatigue Aller/Immun Denies wheezing Physical exam (Primary Care) Vital Signs: Last Vital Signs Pulse 84 01/29/23 12:46 Resp 13 01/29/23 12:46 BP 126/64 01/29/23 12:46 Pulse Ox 96 01/29/23 12:46 Oxygen Delivery Method Room Air 01/29/23 12:46 BMI result Body Mass Index 20.5 Tobacco/Smoking Status: Tobacco use Status Tobacco use date assessed 01/01/23 01/29/23 12:51 Patient Tobacco Use Status Former Tobacco user 01/29/23 12:51 Tobacco use type Cigarette 01/29/23 12:51 e-Cigarette/Vaping Use Never Used 01/29/23 12:51 Thrive Assessment: Date of Thrive Assessment Date Thrive assessed 08/18/21 01/29/23 12:51 Const General: well developed; No acute distress Nutritional Appearance: well nourished Orientation/consciousness: patient oriented x3 HENMT Head: Yes normocephalic and Yes atraumatic Eyes General: appearance normal, both eyes and all related structures Pupils: Equal, round and reactive pupils present EOM: EOMs intact bilaterally Resp Effort & Inspection: normal respiratory effort Neuro General: patient oriented x3 and gait normal Cranial nerves: Yes Equal, round and reactive pupils present Psych Affect: normal affect Results AMB Urinalysis Dipstick UR Leukocytes Negative Last Edit by Chitra Cervantes CMA on 01/29/23 13:54 UR Nitrite Negative Last Edit by Chitra Cervantes, ERIN on 01/29/23 13:54 UR Urobilinogen Normal Last Edit by Chitra Cervantes, ERIN on 01/29/23 13:54 UR Protein Trace Last Edit by Chitra Cervantes, ERIN on 01/29/23 13:54 UR Ph 6.0 Last Edit by Chitra Cervantes, ERIN on 01/29/23 13:54 UR Blood Negative Last Edit by Chitra Cervantes, ERIN on 01/29/23 13:54 UR Specific Lewis 1.020 Last Edit by Chitra Cervantes, ERIN on 01/29/23 13:54 UR Ketone Negative Last Edit by Chitra Cervantes, ERIN on 01/29/23 13:54 UR Bilirubin Negative Last Edit by Chitra Cervantes CMA on 01/29/23 13:54 UR Glucose Negative Last Edit by Chitra Cervantes, ERIN on 01/29/23 13:54 Results Reviewed Results Reviewed: Laboratory Last Values Urine pH (Clinic) 6.0 01/29/23 13:52 Specific Lewis (Clinic) 1.020 01/29/23 13:52 Ur Protein (Clinic) Trace 01/29/23 13:52 Ur Ketones (Clinic) Negative 01/29/23 13:52 Urine Blood (Clinic) Negative 01/29/23 13:52 Urine Nitrite Negative 01/29/23 13:52 Urine Bilirubin (Clinic) Negative 01/29/23 13:52 Urobilinogen (Clinic) Normal 01/29/23 13:52 Leukocyte Esterase (Clinic) Negative 01/29/23 13:52 Urine Glucose (Clinic) Negative 01/29/23 13:52 Assessment and Plan Assessment & Plan (1) Chronic, continuous use of opioids: Code(s): F11.90 - Opioid use, unspecified, uncomplicated Plan: No?opiate?wean?at?last?visit.??Continuing?to?wean?her?medications. Decreasing?morphine?ER?from?15?mg?b.i.d.?to?15?mg?daily Increasing?her?Percocet?total?daily?dose?by?7.5?mg?daily Mg?morphine?equivalent?decreasing?by 3.75?mg?daily which?is?less?than?10%?of?her?total?daily?dose Will?continue?close?follow-up?as?she?is?being?seen?every?2?weeks. We?discussed?that?if?she?is?still?having?difficulty?with?weaning?we?can?see?if?the?[facility]?can?help. (2) Chronic pain: Code(s): G89.29 - Other chronic pain Plan: Continue?gabapentin?and?medications?described?above Follow-up?with?rheumatology (3) Nausea & vomiting: Code(s): R11.2 - Nausea with vomiting, unspecified Plan: GI?panel?was?negative She?has?ondansetron?at?home?and?can?use?this?up?to?twice?a?day?as?needed?for?nausea Also?gets?some?diarrhea?and?can?use?some?loperamide?p.r.n. (4) Dysuria: Code(s): R30.0 - Dysuria Plan: Some?dysuria?but?also?vaginal?itch. Urine?dip: Will?send?script?for?clotrimazole Orders: Orders Urine Dipstick 01/29/23 R30.0 - Dysuria Medications: New loperamide (Anti-Diarrheal (loperamide)) 2 mg PO BID PRN 60 caps 1RF loose stool 30 days ondansetron 4 mg PO Q12H PRN 20 tabs 0RF nausea and vomiting 30 days clotrimazole 1% 1 appful vaginal BEDTIME 45 grams 1RF 7 days Changed From oxycodone 2.5mg AM, 2.5mg Afternoon, 5mg Bedtime. Partial Fill upon patient request. 15 days 30 tabs 0RF pain To oxycodone orally every 6 hours PRN; 2.5mg AM, 5 mg Noon 5mg Afternoon, 5mg Bedtime. Partial Fill upon patient request. 15 days 53 tabs 0RF pain From morphine ER Partial Fill upon patient request. 15 mg PO Q12H 15 days 30 tabs 0RF To morphine ER Partial Fill upon patient request. 15 mg PO DAILY 15 days 15 tabs 0RF Coding Level of Care Code Est Pt Level 4 (66884) Diagnoses Chronic, continuous use of opioids F11.90 Chronic pain G89.29 Nausea & vomiting R11.2 Dysuria R30.0
== END 2023-01-29 13:57 | disposition home or self-care (01) ==
PROVIDERS: PCP Family Medicine; Visit Provider Family Medicine
DX: F11.90 Opioid use, unspecified, uncomplicated (principal); G89.29 Other chronic pain; R11.2 Nausea with vomiting, unspecified; R30.0 Dysuria
CPT/HCPCS: 99214

== ENCOUNTER 2023-01-31 17:30 | Emergency (ER) | payer MEDICARE, SELFPAY ==
[2023-01-31 17:46] VITALS: BP 142/72; PULSE 89; O2SAT 100
[2023-01-31 17:58] VITALS: BP 137/65; PULSE 73; RESP 20; TEMP 36.8; O2SAT 96; BMI 24.3
--- NOTE | 2023-01-31 18:00 | MHC.EDTECH ---
Patient biba from home ,vitals taken ,Patient was hooked up to draughtsman ,and change coordinator into hospital attire .
[2023-01-31 18:21] LABS: MANUAL DIFF FLAG NO
[2023-01-31 18:22] LABS: Basophils Percent Auto 0.3 % (0-2); Eosinophils Percent Auto 0.4 % (0-4); Hematocrit 35.8 % (37.0-47.0); Hemoglobin 11.4 g/dl (12.0-16.0); Imm Gran Abs Auto 0.01 X10*3/uL (0.00-0.03); Imm Gran Pct Auto 0.1 % (0.0-0.4); Lymphocytes Absolute Auto 0.8 X10*3/uL (1.2-4.9); Lymphocytes Percent Auto 11.2 % (20-40); Mean Corpuscular HGB Conc 31.8 g/dl (31.0-35.0); Mean Corpuscular Hemoglobin 26.8 pg (27.0-33.0); Mean Platelet Volume 9.4 fL (9.4-12.3); Monocytes Absolute Auto 0.5 X10*3/uL (0.1-1.2); Monocytes Percent Auto 6.8 % (2-11); Neutrophils Absolute Auto 5.8 x10*3/uL (2.0-8.3); Neutrophils Percent Auto 81.2 % (45-73); Platelet Count 394 X10*3/uL (160-400); Red Blood Count 4.26 X10*6/uL (4.20-5.50); Red Cell Distribution Width 14.4 % (11.0-16.0); White Blood Count 7.2 X10*3/uL (4.8-10.8)
[2023-01-31 18:36] LABS: Alanine Aminotransferase 29 U/L (0-31); Albumin Level 3.8 g/dL (3.5-5.0); Alkaline Phosphatase 432 U/L (39-117); Anion Gap 15 (12-20); Aspartate Amino Transferase 32 U/L (5-31); Bilirubin Total 0.6 mg/dL (0.0-1.0); Blood Urea Nitrogen 13 mg/dL (9-16); Calcium 11.8 mg/dL (8.4-10.2); Carbon Dioxide 35 mmol/L (22-29); Chloride 90 mmol/L (96-108); Creatinine Clr Calc Pharmacy 47.9; Estimated Glomerular Filt Rate 56; Glucose Random 98 mg/dL (60-115); Lipase 9 U/L (8-78); Potassium 3.5 mmol/L (3.3-5.1); Sodium 136 mmol/L (135-145); Total Protein 7.4 g/dL (6.5-8.0)
--- NOTE | 2023-01-31 18:39 | ED_ITS ---
HPI - Nausea/Vomiting/Diarrhea General Chief complaint: Nausea/Vomiting/Diarrhea Stated complaint: N/V X1WK, ABD PAIN,PALE Time Seen by Provider: 01/31/23 17:48 Source: patient Limitations: no limitations History of Present Illness HPI Narrative: 67-year-old female with metastatic cervical cancer and poorly differentiated squamous cell carcinoma, osteoarthritis, rheumatoid arthritis who presents emergency department for evaluation of nausea, vomiting x1 week, abdominal pain and no bowel movement times 5 days. The patient is followed by Dr. Durbin and was on hospice but recently this was discontinued. The patient is current being tapered down on her narcotic medications which included morphine and oxycodone. She states that since reducing her narcotics she has been have constant, nausea and vomiting. She states that over the last week she has thrown up anywhere from 4-10 times a day and is vomiting bile. She states she has only been able to drink male amounts of fluid and not eat any food. The patient was seen at [facility] emergency department and recently and she states that she had a negative workup. She is currently complaining pain across her upper abdomen. She states the pain is a constant pain is if she is being punched in the stomach. She states she has taken Pepto-Bismol and Zofran without any relief of her symptoms. She states that her last bowel movement was 5 days prior but she has had very little food and fluid to drink secondary to her abdominal pain nausea and vomiting. Related Data Home Medications Medication Instructions Recorded Confirmed omeprazole 20 mg capsule,delayed 20 mg PO DAILY 08/01/22 12/26/22 release Previous Rx's Medication Instructions Recorded cane #1 ea 08/18/21 sertraline 50 mg tablet 75 mg (1.5 x 50 mg) PO DAILY 90 06/29/22 days #135 tabs food supplemt, lactose-reduced 1 ea PO DAILY 90 days #21,330 mL 07/12/22 (Ensure oral liquid) walker (Ultra-Light Rollator [facility] [place]) #1 ea 08/31/22 diaper,brief,adult,disposable #60 ea 09/13/22 ([employer] Adult Brief) ondansetron 8 mg disintegrating 8 mg PO Q8H PRN nausea 10/08/22 tablet meclizine 12.5 mg tablet 12.5 mg PO DAILY PRN dizziness 30 08/29/23 days #14 tabs gabapentin 300 mg capsule See Rx Instructions PO TID 30 days 11/26/22 #120 caps ferrous sulfate 325 mg (65 mg 325 mg PO BID #60 tabs 12/25/22 iron) tablet polyethylene glycol 3350 17 gram 17 g PO DAILY 14 days #14 ea 01/08/23 oral powder packet (Miralax) gabapentin 600 mg tablet 600 mg PO DAILY 30 days #30 tabs 01/15/23 lorazepam 1 mg tablet See Rx Instructions PO BID PRN 01/15/23 anxiety 30 days #120 tabs prednisone 5 mg tablet 5 mg PO BID #60 tabs 01/15/23 celecoxib 200 mg capsule 200 mg PO BID PRN pain 30 days #60 01/18/23 caps cholecalciferol (vitamin D3) 50 50 mcg PO DAILY #30 caps 01/22/23 mcg (2,000 unit) capsule clotrimazole 1 % vaginal cream 1 appful vaginal BEDTIME 7 days 01/29/23 #45 grams loperamide 2 mg capsule 2 mg PO BID PRN loose stool 30 01/29/23 (Anti-Diarrheal (loperamide)) days #60 caps morphine 15 mg tablet,extended 15 mg PO DAILY 15 days #15 tabs 01/29/23 release ondansetron 4 mg disintegrating 4 mg PO Q12H PRN nausea and 01/29/23 tablet vomiting 30 days #20 tabs oxycodone 5 mg tablet See Rx Instructions PO Q6H PRN 01/29/23 pain 15 days #53 tabs promethazine 25 mg rectal 25 mg CA Q6H PRN nausea and 01/31/23 suppository (Promethegan) vomiting #20 ea Allergies Allergy/AdvReac Type Severity Reaction Status Date / Time buprenorphine [Belbuca] Allergy Intermediate Anaphylaxis Verified 01/31/23 17:48 Review of Systems 2 Review of Systems: Yes all other systems are reviewed and are negative PMFSH Past Medical History Medical History Cervical cancer Opiate abuse, episodic Osteoarthritis of both knees Primary osteoarthritis of knees, bilateral Osteopenia determined by x-ray Seropositive rheumatoid arthritis Back pain Surgical History History of D&C History of tonsillectomy History of appendectomy History of cholecystectomy Family History Family History Father Acute CVA (cerebrovascular accident) Mother Hypertension Hypercholesterolemia Brother Liver transplant status Family history of thyroid problem Social History Household Members: Children Housing: House Are you a primary family member caretaker to a significant other at home: Yes (mom) Do you presently have visiting nurse or other home services: No Alcohol intake: never Patient Tobacco Use Status: Former Tobacco user Quit Date: 2016 Tobacco use type: Cigarette Smoked in Last 30 Days: No e-Cigarette/Vaping Use: Never Used Second Hand Smoke Exposure: No Use of substances other than those prescribed or required for medical reasons: No Advance Directives: No Advance Directives Information Provided: No service: No 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 Cognitive needs: No Hearing needs: No Vision needs: No Physical Exam 2 Vital Signs: Vital Signs: Last Vital Signs Temp 98.9 F 01/31/23 21:34 Pulse 66 01/31/23 21:34 Resp 16 01/31/23 21:34 BP 103/54 L 01/31/23 21:34 Pulse Ox 98 01/31/23 21:34 O2 Del Method Room Air 01/31/23 21:34 BMI result Body Mass Index 24.3 Vital signs revealed elevated respiratory of 20 otherwise unremarkable Exam General: Awake, alert in no distress Head: Normocephalic, atraumatic EENT: PERRL, Lids normal, sclera normal, conjunctiva normal, nose normal , ears normal, throat without erythema or exudates Neck: Supple, no adenopathy, no trachea midline or C-spine tenderness Lung: breath sounds symmetric, no wheezing, rales or rhonchi Chest: symmetric movement, nontender Heart: regular rate and rhythm, normal S1, S2 no murmurs or rubs Abdomen: soft, moderate epigastric tenderness, nondistended, normal bowel sounds Back: no vertebral tenderness, no CVAT Extremities: no deformities, moves all extremities symmetrically Neuro: Awake, alert, oriented, normal speech, moves all extremities symmetrically Psych: Pleasant, cooperative Medications Administered Discontinued Medications Generic Name Dose Route Start Last Admin Trade Name Freq PRN Reason Stop Dose Admin Diphenhydramine HCl 50 mg 01/31/23 18:39 01/31/23 18:55 Diphenhydramine Hcl 50 Mg/Ml Vial IVPUSH 01/31/23 18:40 50 mg ONCE STA Administration Famotidine 20 mg 01/31/23 18:39 01/31/23 18:57 Famotidine/Pf 20 Mg/2 Ml Vial IVPUSH 01/31/23 18:40 20 mg ONCE ONE Administration Sodium Chloride 1,000 mls @ 999 mls/hr 01/31/23 18:39 01/31/23 20:05 Ns IV 01/31/23 19:39 Infused .Q1H1M STA Infusion Ketorolac Tromethamine 15 mg 01/31/23 18:39 01/31/23 18:56 Ketorolac Tromethamine 15 Mg/Ml Vial IVPUSH 01/31/23 18:40 15 mg ONCE STA Administration Metoclopramide HCl 10 mg 01/31/23 18:39 01/31/23 19:00 Metoclopramide Hcl 10 Mg/2 Ml Vial IVPUSH 01/31/23 18:40 10 mg ONCE STA Administration Medical Decision Making Medical Decision Making MDM Narrative: 67-year-old female with metastatic cervical cancer and 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 The patient is followed by Dr. Durbin and was on hospice but recently this was discontinued. The patient is current being tapered down on her narcotic medications which included morphine and oxycodone. Patient was seen recently [facility]. Patient's vital signs did reveal an elevated respiratory rate otherwise unremarkable. Physical examination did reveal moderate epigastric tenderness. Following evaluation was ordered: CBC, CMP, lipase, urinalysis Patient was treated with normal saline IV x1 L, Toradol 15 mg IV, Pepcid 20 mg IV, Benadryl 50 mg IV and Reglan 10 mg IV 18:35 My interpretation patient's laboratory evaluation as follows: Anemia with an H&H of 11.4 and 35.8-chronic. WBC was normal 7200. Chloride low 90, bicarb elevated 35-this is consistent with her vomiting and poor fluid in food intake AST elevated 32. Alk phos elevated 432. Bilirubin normal. Lipase normal. 20:05 Patient is feeling better, she was able to drink fluid and eat crackers. Patient will be discharged home. She is given a prescription for Phenergan suppositories 25 mg 1 per rectum every 6-8 hours as needed She was advised to continue to take her medications as prescribed by your PCP . Differential Diagnosis Differential Diagnoses: The differential diagnosis associated with the presentation includes Differential diagnosis includes was not limited to gastritis, GERD, bowel obstruction, pain secondary to metastatic cancer, dehydration, anemia, electrolyte abnormality Admission/Observation Consideration of admission/observation: Escalation of care including admission/observation considered Lab Data [facility] Lab Attestation statement: I reviewed the patient's lab results. Please see [facility] for my interpretation 01/31/23 18:14 01/31/23 18:14 Labs: Lab Results 01/31/23 Range/Units 18:14 WBC 7.2 (4.8-10.8) X10*3/uL RBC 4.26 (4.20-5.50) X10*6/uL Hgb 11.4 L (12.0-16.0) g/dl Hct 35.8 L (37.0-47.0) % MCV 84.0 (80.0-98.0) fL MCH 26.8 L (27.0-33.0) pg MCHC 31.8 (31.0-35.0) g/dl RDW 14.4 (11.0-16.0) % Plt Count 394 D (160-400) X10*3/uL MPV 9.4 (9.4-12.3) fL Immature Gran % (Auto) 0.1 (0.0-0.4) % Neut % (Auto) 81.2 H (45-73) % Lymph % (Auto) 11.2 L (20-40) % [place] % (Auto) 6.8 (2-11) % Eos % (Auto) 0.4 (0-4) % Baso % (Auto) 0.3 (0-2) % Lymph # (Auto) 0.8 L (1.2-4.9) X10*3/uL [place] # (Auto) 0.5 (0.1-1.2) X10*3/uL Eos # (Auto) 0.0 (0.0-0.4) X10*3/uL Baso # (Auto) 0.0 (0.0-0.2) X10*3/uL Abs Immat Gran (auto) 0.01 (0.00-0.03) X10*3/uL Absolute Neuts (auto) 5.8 (2.0-8.3) x10*3/uL Absolute Nucleated RBC 0.000 (0.0-0.012) X10*3/uL Nucleated RBC % (auto) 0.0 (0.0-0.2) /100WBC Sodium 136 (135-145) mmol/L Potassium 3.5 (3.3-5.1) mmol/L Chloride 90 L (96-108) mmol/L Carbon Dioxide 35 H (22-29) mmol/L Anion Gap 15 (12-20) BUN 13 (9-16) mg/dL Creatinine 1.00 (0.5-1.4) mg/dL Estim Creat Clear Calc 47.9 Estimated GFR 56 Random Glucose 98 (60-115) mg/dL Calcium 11.8 H D (8.4-10.2) mg/dL Total Bilirubin 0.6 (0.0-1.0) mg/dL AST 32 H (5-31) U/L ALT 29 (0-31) U/L Alkaline Phosphatase 432 H (39-117) U/L Total Protein 7.4 (6.5-8.0) g/dL Albumin 3.8 (3.5-5.0) g/dL Lipase 9 (8-78) U/L External Record Review External record reviewed: Office record Prescription Management I considered prescription management with: Other (Antiemetics) Chronic Conditions Patient?s care impacted by: Other (Metastatic cancer) Discharge Plan Discharge Clinical Impression: Acute dehydration Abdominal pain Qualifiers: Abdominal location: generalized Qualified Code(s): R10.84 - Generalized abdominal pain Vomiting Qualifiers: Vomiting type: unspecified Nausea presence: with nausea Qualified Code(s): R 11.2 - Nausea with vomiting, unspecified Patient Disposition: Home, Self-Care Instructions: Acute Nausea and Vomiting (ED) Additional Instructions: Your blood work was unremarkable. Take Phenergan (promethazine) 25 mg suppositories, 1 suppository inserted in your rectum every 6-8 hours as needed for nausea and vomiting. Take ibuprofen 200 mg pills, 2 pills every 6 hours as needed for pain or fever. Take Tylenol (acetaminophen) 500 mg pills, 2 pills every 6 hours as needed for pain or fever. Follow-up with your doctor in 2 days. Please return to the emergency department if your symptoms get worse or if you develop any symptoms that are concerning to you. Prescriptions: New promethazine [Promethegan] 25 mg suppository 25 mg CA Q6H PRN (Reason: nausea and vomiting) Qty: 20 0RF No Action Ensure Liquid 1 ea PO DAILY 90 Days Qty: 92398 3RF Rx Instructions: Pushpa Rob. (DME) [employer] Adult Brief Misc See Rx Instructions .Route Qty: 60 2RF Rx Instructions: 2 daily As directed, 30 days ondansetron 8 mg tablet,disintegrating 8 mg PO Q8H PRN (Reason: nausea) 3RF meclizine 12.5 mg tablet 12.5 mg PO DAILY PRN (Reason: dizziness) 30 Days Qty: 14 0RF gabapentin 300 mg capsule See Rx Instructions PO TID 30 Days Qty: 120 2RF Rx Instructions: 300 mg a.m., 300 mg afternoon, 600 mg bedtime orally 3 times a day; gabapentin 600 mg tablet 600 mg PO DAILY 30 Days Qty: 30 1RF lorazepam 1 mg tablet See Rx Instructions PO BID PRN (Reason: anxiety) 30 Days Qty: 120 0RF Rx Instructions: 1mg to 2mg orally 2 times a day PRN; [employer] verified. Partial refill upon request. cholecalciferol (vitamin D3) 50 mcg (2,000 unit) capsule 50 mcg PO DAILY Qty: 30 5RF ferrous sulfate 325 mg (65 mg iron) Tablet 325 mg PO BID Qty: 60 3RF (DME) cane Device See Rx Instructions .Route Qty: 1 0RF Rx Instructions: As directed omeprazole 20 mg capsule,delayed release(DR/EC) 20 mg PO DAILY (DME) Ultra-Light Rollator Misc See Rx Instructions .Route Qty: 1 0RF Rx Instructions: Rollator walker with seat and brakes. Daily as directed. 999 days polyethylene glycol 3350 [Miralax] 17 gram powder in packet 17 g PO DAILY 14 Days Qty: 14 0RF oxycodone 5 mg tablet See Rx Instructions PO Q6H PRN (Reason: pain) 15 Days Qty: 53 0RF Rx Instructions: orally every 6 hours PRN; 2.5mg AM, 5 mg Noon 5mg Afternoon, 5mg Bedtime. Partial Fill upon patient request. morphine 15 mg tablet extended release 15 mg PO DAILY 15 Days Qty: 15 0RF Rx Instructions: Partial Fill upon patient request. loperamide [Anti-Diarrheal (loperamide)] 2 mg capsule 2 mg PO BID PRN (Reason: loose stool) 30 Days Qty: 60 1RF ondansetron 4 mg tablet,disintegrating 4 mg PO Q12H PRN (Reason: nausea and vomiting) 30 Days Qty: 20 0RF clotrimazole 1 % cream 1 appful vaginal BEDTIME 7 Days Qty: 45 1RF sertraline 50 mg tablet 75 mg PO DAILY 90 Days Qty: 135 3RF celecoxib 200 mg capsule 200 mg PO BID PRN (Reason: pain) 30 Days Qty: 60 1RF prednisone 5 mg tablet 5 mg PO BID Qty: 60 2RF
[2023-01-31] MEDS: 0.9 % Sodium Chloride 1,000 ML 999 ML IV (18:54)
[2023-01-31] MEDS: diphenhydrAMINE HCL 50 MG/ML VIAL IVPUSH (18:55)
[2023-01-31] MEDS: Ketorolac Tromethamine 15 MG/ML VIAL IVPUSH (18:56)
[2023-01-31] MEDS: Famotidine/PF 20 MG/2 ML VIAL IVPUSH (18:57)
[2023-01-31] MEDS: Metoclopramide HCl 10 MG/2 ML VIAL IVPUSH (19:00)
[2023-01-31 19:21] VITALS: BP 107/56; PULSE 68; RESP 16; TEMP 36.7; O2SAT 97
[2023-01-31 21:34] VITALS: BP 103/54; PULSE 66; RESP 16; TEMP 37.2; O2SAT 98
--- NOTE | 2023-01-31 21:37 | MHC.EDTECH ---
Patient said she was hungry RN ,Shaheed said Pt can eat and drink ,Pt was given nikki rafal and saltines crackers to snack on .
--- NOTE | 2023-01-31 21:43 | MHC.EDTECH ---
Provider aware of p/o challenge and Patient tolerated well .
== END 2023-01-31 22:56 | disposition home or self-care (01) ==
PROVIDERS: Emergency Provider Emergency Medicine Emergency Medical Services; PCP Family Medicine
DX: E86.0 Dehydration (principal); R10.84 Generalized abdominal pain; R11.2 Nausea with vomiting, unspecified; C53.9 Malignant neoplasm of cervix uteri, unspecified
CPT/HCPCS: 36415; 80053; 83690; 85025; 96361; 96374; 96375; 99284; J1200; J1885; J2765

== ENCOUNTER 2023-02-01 20:14 | Inpatient (IN) | payer MEDICARE, SELFPAY ==
--- NOTE | ~2023-02-01 | FL_ITS ---
EXAMINATION: XR FLUOROSCOPY UPPER GI WITH AIR WITH SMALL BOWEL SERIES CLINICAL INFORMATION: Persistent nausea and vomiting COMPARISON: None TECHNIQUE: Fluoroscopic air contrast upper GI examination was performed utilizing standard techniques with thin and thick barium and effervescent granules. Numerous spot images were obtained. Multiple films were taken at several intervals to assess passage of contrast from the small bowel into the colon. FINDINGS: There is contrast noted to be within the mid transverse and descending colon. Lateral cine images of the oropharynx and hypopharynx demonstrate normal swallow mechanism with normal epiglottic inversion and soft palate elevation. No tracheal penetration, glottic or subglottic aspiration identified. No nasopharyngeal reflux present. Hypopharyngeal structures appear normal without evidence of mass or diverticulum. 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 Dual and single contrast images of the esophagus demonstrate normal caliber, contour, and mucosal pattern. No evidence of stricture, mass, or ulcerations identified. Primary esophageal peristalsis was normal. Mild nonpropulsive tertiary contractions are noted in the distal esophagus. No evidence of hiatus hernia identified. No significant gastroesophageal reflux was seen during the course of the examination and on reflux views. Dual contrast and single contrast images of the stomach demonstrated normal contour. Evaluation of the gastric mucosa is limited due to poor coating of the barium, however, there is no evidence of mass, ulceration, or other abnormality. Contrast freely passed into the gastric antrum and duodenal bulb without delay. Single and air-contrast images of the duodenal bulb demonstrate no abnormality. The duodenal sweep has a normal appearance, course, and mucosal fold appearance. The imaged proximal jejunum has a normal fold pattern and caliber. Multiple films were taken to assess passage of the barium into the colon. A large portion of the barium remains in the fundus of the stomach. The small bowel is nondilated. At 4 hours and 20 minutes, the barium remains in the small bowel without any evidence of progression to the right colon. FLUOROSCOPY TIME: 4 minutes 25 seconds Number of Spot Images: 10 Number of Cine: 9 DOSE AREA PRODUCT: 2704 uGy-m2 (microgray-meter squared) FL/FL upper GI w air w SBFT IMPRESSION:. 1. 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 2. Mild esophageal dysmotility 3. At 4 hours and 20 minutes, a large portion of barium remains in the fundus of the stomach. Contrast is seen in the small bowel however has not progressed to the colon. This procedure was performed by Otis White PA-C, and supervised by Dr. Maier
--- NOTE | ~2023-02-01 | CT_ITS ---
EXAMINATION: CT ABDOMEN AND PELVIS WITHOUT CONTRAST CLINICAL INFORMATION: Nausea/vomiting and epigastric pain. COMPARISON: None available. TECHNIQUE: Multidetector volumetric imaging was performed from the superior aspect of the liver through the pubic symphysis. Sagittal and coronal reformatted images were obtained on the technologist's workstation. This CT examination was performed using dose optimization techniques as appropriate, variously including the following: *Automated exposure control *Adjustment of mA and/or kV according to patient size (this includes techniques or standardized protocols for targeted exams where dose is matched to indication/reason for exam; i.e. extremities or head) *Use of iterative reconstruction technique DLP: 422 mGy-cm FINDINGS: LUNG BASES: There is bibasilar atelectasis/scarring. LIVER, GALLBLADDER, AND BILIARY TREE: The liver is normal in size, shape, and attenuation. No focal hepatic lesion present. The gallbladder has been surgically removed. The CBD is dilated with distal segment measuring 1.5 cm and proximal CBD measuring 1.4 cm. Mild prominence of proximal right and left hepatic ducts is noted. PANCREAS: Unremarkable. SPLEEN: Unremarkable. ADRENAL GLANDS: There calcified right adrenal mass is a 2.4 x 2.2 cm. The left adrenal gland is unremarkable. KIDNEYS AND URETERS: The kidneys are normal in size, shape, and attenuation. No hydronephrosis, hydroureter, or calculi seen. No perinephric stranding. BLADDER: Unremarkable. GASTROINTESTINAL TRACT: There are multiple prominent fluid-filled small bowel loops. There is oral contrast seen in the colon without distention. There is moderate stool and mild mural thickening involving the distal sigmoid colon and rectum with mild fat stranding questioning low-grade inflammatory process. The stomach is distended with recently ingested food. No free air or free fluid seen. ABDOMINAL WALL: No significant hernia is appreciated. LYMPH NODES: Normal. VASCULAR: Unremarkable. PELVIC VISCERA: There is dystrophic calcification in the fundal uterus likely fibroid disease. There is mild presacral soft tissue thickening. OSSEOUS STRUCTURES: There are degenerative disc changes L3-L4, L4-L5 disc levels. No aggressive lytic or sclerotic process seen. CT/CT abdomen pelvis wo IV con IMPRESSION: Diffuse fluid-filled small bowel loops and oral contrast opacified colon with no transition point. There is mild mural thickening involving distal sigmoid colon and rectum with perirectal colic fat stranding suggestive of low-grade inflammatory process involving these organs. Mild presacral soft tissue thickening is seen as well. No free air or free fluid seen. Dilated CBD an expected finding post cholecystectomy. Calcified right adrenal mass. There is no significant change in the calcified adrenal mass compared to FDG study 10/09/2022. Fleischner guidelines were followed.
--- NOTE | ~2023-02-01 | XR_ITS ---
EXAMINATION: XR ABDOMEN KUB CLINICAL INDICATION: Ileus. Nausea and vomiting. COMPARISON: Previous CT of the abdomen and pelvis from yesterday TECHNIQUE: AP view of the abdomen. FINDINGS: There are slightly distended air-filled loops of small bowel in the central abdomen similar to yesterday's scan. Small and large bowel is otherwise normal in caliber. There is oral contrast seen in the colon. No free air. Surgical clips in the right upper quadrant. Small central pelvic calcifications. Degenerative changes of the spine and mild scoliosis. XR/XR KUB IMPRESSION: Slightly distended air-filled loops of bowel in the central abdomen similar to yesterday's CT scan. Differential would include ileus and partial small bowel obstruction.
--- NOTE | ~2023-02-01 | CT_ITS ---
EXAMINATION: CT ABDOMEN AND PELVIS WITHOUT CONTRAST CLINICAL INFORMATION: Abdominal pain. COMPARISON: 02/02/2023. TECHNIQUE: Multidetector volumetric imaging was performed from the superior aspect of the liver through the pubic symphysis. Sagittal and coronal reformatted images were obtained on the technologist's workstation. This CT examination was performed using dose optimization techniques as appropriate, variously including the following: *Automated exposure control *Adjustment of mA and/or kV according to patient size (this includes techniques or standardized protocols for targeted exams where dose is matched to indication/reason for exam; i.e. extremities or head) *Use of iterative reconstruction technique DLP: 446 mGy-cm FINDINGS: LUNG BASES: There is atelectatic change and/or scarring at both lung bases. LIVER, GALLBLADDER, AND BILIARY TREE: The liver is normal in size, shape, and attenuation. No focal liver lesions are seen. There is stable intrahepatic biliary duct dilatation and dilatation of the common bile duct up to 1.7 cm. There has been a prior cholecystectomy. PANCREAS: Unremarkable. SPLEEN: Unremarkable. ADRENAL GLANDS: There are apparent calcifications associated with the right adrenal gland similar to previous. KIDNEYS AND URETERS: The kidneys are normal in size, shape, and attenuation. No hydronephrosis, hydroureter, or calculi seen. No perinephric stranding. BLADDER: The urinary bladder is decompressed GASTROINTESTINAL TRACT: There is gastric distention with an air-fluid level. There are distended/dilated small bowel loops particularly's proximal small bowel loops measuring up to 3.3 cm which gradually taper to more normal caliber small bowel distally and normal caliber terminal small bowel with apparent diffuse mild small bowel thickening. There is retained contrast material within large bowel loops extending to the region of the distal rectum. There are mildly thickened large bowel loops throughout is well particularly the rectosigmoid colon. There is mild perirectal infiltrative change and fluid. The appendix is not seen. ABDOMINAL WALL: No significant hernia is appreciated. LYMPH NODES: Normal. VASCULAR: There is atherosclerotic plaque of the abdominal aorta. PELVIC VISCERA: Unremarkable. OSSEOUS STRUCTURES: There is thoracolumbar disc degenerative change with mild curvature of the lumbar spine convex to the right. There is again seen significant L3-L4 disc degenerative change with prominent posterior osteophyte resulting in moderate spinal narrowing. CT/CT abdomen pelvis wo IV con IMPRESSION: Distended gas-filled stomach with an air-fluid level, distended/mildly dilated small bowel loops tapering to more normal caliber distal small bowel with diffuse mild small bowel thickening. There is also mild diffuse colonic thickening most pronounced in the rectosigmoid colon with mild perirectal infiltrative change/fluid. Suspect an enteritis/enterocolitis with ileus. A component of a partial small bowel obstruction not entirely excluded and correlation and follow-up needed. Contrast material remains within large bowel loops. Dilated common bile duct similar to previous. Fleischner guidelines were followed.
[2023-02-01 20:31] VITALS: PULSE 98; O2SAT 97; BMI 21.5
[2023-02-01 20:38] VITALS: BP 125/72; PULSE 76; RESP 19; TEMP 36.7; O2SAT 95
[2023-02-01] MEDS: Ondansetron ODT 4 MG TAB.RAPDIS SUBLINGUAL (20:42)
[2023-02-01 20:51] LABS: MANUAL DIFF FLAG NO
[2023-02-01 20:52] LABS: Basophils Percent Auto 0.4 % (0-2); Eosinophils Absolute Auto 0.1 X10*3/uL (0.0-0.4); Eosinophils Percent Auto 0.7 % (0-4); Hematocrit 33.5 % (37.0-47.0); Hemoglobin 10.9 g/dl (12.0-16.0); Imm Gran Abs Auto 0.02 X10*3/uL (0.00-0.03); Imm Gran Pct Auto 0.3 % (0.0-0.4); Lymphocytes Absolute Auto 0.7 X10*3/uL (1.2-4.9); Lymphocytes Percent Auto 10.3 % (20-40); Mean Corpuscular HGB Conc 32.5 g/dl (31.0-35.0); Mean Corpuscular Volume 83.1 fL (80.0-98.0); Mean Platelet Volume 9.4 fL (9.4-12.3); Monocytes Absolute Auto 0.5 X10*3/uL (0.1-1.2); Monocytes Percent Auto 7.7 % (2-11); Neutrophils Absolute Auto 5.6 x10*3/uL (2.0-8.3); Neutrophils Percent Auto 80.6 % (45-73); Platelet Count 357 X10*3/uL (160-400); Red Blood Count 4.03 X10*6/uL (4.20-5.50); Red Cell Distribution Width 14.1 % (11.0-16.0)
--- NOTE | 2023-02-01 20:54 | PC.NURSE ---
Pt presents to ED with nausea/vomiting x1 month. Pt was seen here yesterday for same, also complaining of epigastric pain when vomiting. Pt was given a prescription for home but was unable to pick the medication up today so vomiting continued. Pt reports vomit has been green, denies blood. Pt reporting 8/10 upper abd pain. Pt presents A&Ox4, GCS 15, with cool, dry skin. Pt is going through chemo therapy and her doctor has decreased her oxycodon and morphine doses, pt thinks this may be contributing to the vomiting. Labs are drawn and sent, I attempted an IV twice with no success. DORENE Whitten attempting now. Pt waiting ED provider at this time.
--- NOTE | 2023-02-01 21:20 | ED_ITS ---
HPI - Nausea/Vomiting/Diarrhea General Chief complaint: Nausea/Vomiting/Diarrhea Stated complaint: Pt coming in with nausea/vomiting. Stage 4 cancer. 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 which was without any significant acute pain patient consulted hospice care and did not qualify for the hospice patient also been seen by pain clinic multiple times were advised to have her medication pump but patient refused Related Data Home Medications Medication Instructions Recorded Confirmed omeprazole 20 mg capsule,delayed 20 mg PO DAILY 08/01/22 12/26/22 release Previous Rx's Medication Instructions Recorded cane #1 ea 08/18/21 sertraline 50 mg tablet 75 mg (1.5 x 50 mg) PO DAILY 90 06/29/22 days #135 tabs food supplemt, lactose-reduced 1 ea PO DAILY 90 days #21,330 mL 07/12/22 (Ensure oral liquid) walker (Ultra-Light Rollator misc) #1 ea 08/31/22 diaper,brief,adult,disposable #60 ea 09/13/22 (Wings Choice Adult Brief) ondansetron 8 mg disintegrating 8 mg PO Q8H PRN nausea 10/08/22 tablet meclizine 12.5 mg tablet 12.5 mg PO DAILY PRN dizziness 30 11/06/22 days #14 tabs gabapentin 300 mg capsule See Rx Instructions PO TID 30 days 11/26/22 #120 caps ferrous sulfate 325 mg (65 mg 325 mg PO BID #60 tabs 12/25/22 iron) tablet polyethylene glycol 3350 17 gram 17 g PO DAILY 14 days #14 ea 01/08/23 oral powder packet (Miralax) gabapentin 600 mg tablet 600 mg PO DAILY 30 days #30 tabs 01/15/23 lorazepam 1 mg tablet See Rx Instructions PO BID PRN 01/15/23 anxiety 30 days #120 tabs prednisone 5 mg tablet 5 mg PO BID #60 tabs 01/15/23 celecoxib 200 mg capsule 200 mg PO BID PRN pain 30 days #60 01/18/23 caps cholecalciferol (vitamin D3) 50 50 mcg PO DAILY #30 caps 01/22/23 mcg (2,000 unit) capsule clotrimazole 1 % vaginal cream 1 appful vaginal BEDTIME 7 days 01/29/23 #45 grams loperamide 2 mg capsule 2 mg PO BID PRN loose stool 30 01/29/23 (Anti-Diarrheal (loperamide)) days #60 caps morphine 15 mg tablet,extended 15 mg PO DAILY 15 days #15 tabs 01/29/23 release ondansetron 4 mg disintegrating 4 mg PO Q12H PRN nausea and 01/29/23 tablet vomiting 30 days #20 tabs oxycodone 5 mg tablet See Rx Instructions PO Q6H PRN 01/29/23 pain 15 days #53 tabs promethazine 25 mg rectal 25 mg NH Q6H PRN nausea and 01/31/23 suppository (Promethegan) vomiting #20 ea Allergies Allergy/AdvReac Type Severity Reaction Status Date / Time buprenorphine [Belbuca] Allergy Intermediate Anaphylaxis Verified 01/31/23 17:48 Review of Systems 2 Review of Systems: Yes all other systems are reviewed and are negative PMF Past Medical History Medical History Cervical cancer Opiate abuse, episodic Osteoarthritis of both knees Primary osteoarthritis of knees, bilateral Osteopenia determined by x-ray Seropositive rheumatoid arthritis Back pain Surgical History History of D&C History of tonsillectomy History of appendectomy History of cholecystectomy Family History Family History Father Acute CVA (cerebrovascular accident) Mother Hypertension Hypercholesterolemia Brother Liver transplant status Family history of thyroid problem Social History Household Members: Children Housing: House Are you a primary care taker to a significant other at home: Yes (mom) Do you presently have visiting nurse or other home services: No Alcohol intake: never Patient Tobacco Use Status: Former Tobacco user Quit Date: 2016 Tobacco use type: Cigarette Smoked in Last 30 Days: No e-Cigarette/Vaping Use: Never Used Second Hand Smoke Exposure: No Use of substances other than those prescribed or required for medical reasons: No Advance Directives: No Advance Directives Information Provided: No service: No 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 Cognitive needs: No Hearing needs: No Vision needs: No Physical Exam 2 Vital Signs: Vital Signs: Last Vital Signs Temp 97.7 F 02/02/23 02:43 Pulse 77 02/02/23 02:43 Resp 21 H 02/02/23 02:43 BP 123/76 02/02/23 02:43 Pulse Ox 91 L 02/02/23 02:43 O2 Del Method Room Air 02/02/23 02:43 BMI result Body Mass Index 21.5 Appearance: Alert. Oriented X3. No acute distress. Eyes: PERRLA, No Nystagmus ENT: Pharynx normal. Oral Mucosa moist Neck: Normal inspection. Neck supple. CVS: Normal heart rate and rhythm. Pulses normal. Respiratory: No respiratory distress. Equal air entry bilateral, no wheezing/rales/rhonchi Abdomen: Soft diffuse tenderness no rebound tenderness or guarding. Bowel sounds are present, no mass palpable, no CVA tenderness Skin: Skin warm and dry. Normal skin color. Normal skin turgor. Extremities: No lower extremity edema. No calf tenderness Neuro: Oriented X 3. No motor deficit. Medications Administered Generic Name Dose Route Start Last Admin Trade Name Freq PRN Reason Stop Dose Admin Potassium Chloride 10 meq in 100 mls @ 100 mls/hr 02/02/23 06:30 02/02/23 06:40 Potassium Chloride/H20 IV 02/02/23 08:29 100 mls/hr Q1H LUIS M Administration Discontinued Medications Generic Name Dose Route Start Last Admin Trade Name Freq PRN Reason Stop Dose Admin Al Hydroxide/Mg Hydroxide 30 ml 02/02/23 01:10 02/02/23 01:15 Magnesium Hydrox/Alum Hydrox 30 Ml Oral.Susp PO 02/02/23 01:11 30 ml ONCE ONE Administration Sodium Chloride 1,000 mls @ 999 mls/hr 02/01/23 21:44 02/01/23 23:29 Ns IV 02/01/23 22:44 Infused .Q1H1M ONE Infusion Morphine Sulfate 4 mg 02/01/23 21:44 02/01/23 21:58 Morphine Sulfate 4 Mg/Ml Cartridge IVPUSH 02/01/23 21:45 4 mg ONCE ONE Administration Protocol Ondansetron HCl 4 mg 02/01/23 20:36 02/01/23 20:42 Ondansetron Odt 4 Mg Tab.Rapdis SUBLINGUAL 02/01/23 20:37 4 mg ONCE ONE Administration Prochlorperazine Edisylate 10 mg 02/01/23 21:44 02/01/23 21:58 Prochlorperazine Edisylate 10 Mg/2 Ml Vial IVPUSH 02/01/23 21:45 10 mg ONCE ONE Administration Medical Decision Making Medical Decision Making [facility] Narrative: Patient metastatic cervical cancer looking for placement to manage at home will get case management had hypokalemia of 2.9 which was replaced Differential Diagnosis Differential Diagnoses: The differential diagnosis associated with the presentation includes Lab Data [facility] Lab Attestation statement: I reviewed the patient's lab results. 02/01/23 20:46 02/01/23 23:49 Labs: Lab Results 02/01/23 02/01/23 Range/Units 20:46 23:49 WBC 7.0 (4.8-10.8) X10*3/uL RBC 4.03 L (4.20-5.50) X10*6/uL Hgb 10.9 L (12.0-16.0) g/dl Hct 33.5 L (37.0-47.0) % MCV 83.1 (80.0-98.0) fL MCH 27.0 (27.0-33.0) pg MCHC 32.5 (31.0-35.0) g/dl RDW 14.1 (11.0-16.0) % Plt Count 357 (160-400) X10*3/uL MPV 9.4 (9.4-12.3) fL Immature Gran % (Auto) 0.3 (0.0-0.4) % Neut % (Auto) 80.6 H (45-73) % Lymph % (Auto) 10.3 L (20-40) % Tripp % (Auto) 7.7 (2-11) % Eos % (Auto) 0.7 (0-4) % Baso % (Auto) 0.4 (0-2) % Lymph # (Auto) 0.7 L (1.2-4.9) X10*3/uL Tripp # (Auto) 0.5 (0.1-1.2) X10*3/uL Eos # (Auto) 0.1 (0.0-0.4) X10*3/uL Baso # (Auto) 0.0 (0.0-0.2) X10*3/uL Abs Immat Gran (auto) 0.02 (0.00-0.03) X10*3/uL Absolute Neuts (auto) 5.6 (2.0-8.3) x10*3/uL Absolute Nucleated RBC 0.000 (0.0-0.012) X10*3/uL Nucleated RBC % (auto) 0.0 (0.0-0.2) /100WBC Sodium 137 (135-145) mmol/L Potassium 2.9 L (3.3-5.1) mmol/L Chloride 93 L (96-108) mmol/L Carbon Dioxide 32 H (22-29) mmol/L Anion Gap 15 (12-20) BUN 14 (9-16) mg/dL Creatinine 0.83 (0.5-1.4) mg/dL Estim Creat Clear Calc 60.8 Estimated GFR > 60 Fasting Glucose 90 (60-99) mg/dL Calcium 10.6 H D (8.4-10.2) mg/dL Total Bilirubin 0.4 (0.0-1.0) mg/dL AST 27 (5-31) U/L ALT 23 (0-31) U/L Alkaline Phosphatase 298 H (39-117) U/L Total Protein 7.0 (6.5-8.0) g/dL Albumin 3.6 (3.5-5.0) g/dL Lipase 13 (8-78) U/L Independent Interpretation I performed an independent interpretation of an: EKG Interpretation: Normal sinus rhythm with heart rate 69 beats per minute normal interval normal axis no acute ST-T changes Discharge Plan Discharge Clinical Impression: Abdominal pain, chronic, generalized, Metastasis from cervical cancer Patient Disposition: Still a Patient Prescriptions: No Action Ensure Liquid 1 ea PO DAILY 90 Days Qty: 97103 3RF Rx Instructions: Pushpa Rob. ([facility]) [employer] Choice Adult Brief Misc See Rx Instructions .Route Qty: 60 2RF Rx Instructions: 2 daily As directed, 30 days ondansetron 8 mg tablet,disintegrating 8 mg PO Q8H PRN (Reason: nausea) 3RF meclizine 12.5 mg tablet 12.5 mg PO DAILY PRN (Reason: dizziness) 30 Days Qty: 14 0RF gabapentin 300 mg capsule See Rx Instructions PO TID 30 Days Qty: 120 2RF Rx Instructions: 300 mg a.m., 300 mg afternoon, 600 mg bedtime orally 3 times a day; gabapentin 600 mg tablet 600 mg PO DAILY 30 Days Qty: 30 1RF lorazepam 1 mg tablet See Rx Instructions PO BID PRN (Reason: anxiety) 30 Days Qty: 120 0RF Rx Instructions: 1mg to 2mg orally 2 times a day PRN; [employer] verified. Partial refill upon request. cholecalciferol (vitamin D3) 50 mcg (2,000 unit) capsule 50 mcg PO DAILY Qty: 30 5RF ferrous sulfate 325 mg (65 mg iron) Tablet 325 mg PO BID Qty: 60 3RF promethazine [Promethegan] 25 mg suppository 25 mg NH Q6H PRN (Reason: nausea and vomiting) Qty: 20 0RF ([facility]) cane Device See Rx Instructions .Route Qty: 1 0RF Rx Instructions: As directed omeprazole 20 mg capsule,delayed release(DR/EC) 20 mg PO DAILY ([facility]) Ultra-Light Rollator Misc See Rx Instructions .Route Qty: 1 0RF Rx Instructions: Rollator walker with seat and brakes. Daily as directed. 999 days polyethylene glycol 3350 [Miralax] 17 gram powder in packet 17 g PO DAILY 14 Days Qty: 14 0RF oxycodone 5 mg tablet See Rx Instructions PO Q6H PRN (Reason: pain) 15 Days Qty: 53 0RF Rx Instructions: orally every 6 hours PRN; 2.5mg AM, 5 mg Noon 5mg Afternoon, 5mg Bedtime. Partial Fill upon patient request. morphine 15 mg tablet extended release 15 mg PO DAILY 15 Days Qty: 15 0RF Rx Instructions: Partial Fill upon patient request. loperamide [Anti-Diarrheal (loperamide)] 2 mg capsule 2 mg PO BID PRN (Reason: loose stool) 30 Days Qty: 60 1RF ondansetron 4 mg tablet,disintegrating 4 mg PO Q12H PRN (Reason: nausea and vomiting) 30 Days Qty: 20 0RF clotrimazole 1 % cream 1 appful vaginal BEDTIME 7 Days Qty: 45 1RF sertraline 50 mg tablet 75 mg PO DAILY 90 Days Qty: 135 3RF celecoxib 200 mg capsule 200 mg PO BID PRN (Reason: pain) 30 Days Qty: 60 1RF prednisone 5 mg tablet 5 mg PO BID Qty: 60 2RF
[2023-02-01] MEDS: 0.9 % Sodium Chloride 1,000 ML 999 ML IV (21:58)
[2023-02-01] MEDS: Morphine Sulfate 4 MG/ML CARTRIDGE IVPUSH (21:58)
[2023-02-01] MEDS: Prochlorperazine Edisylate 10 MG/2 ML VIAL IVPUSH (21:58)
--- NOTE | 2023-02-01 22:09 | PC.NURSE ---
Pt medicated per MAR. Assisted to commode, call cruz placed within reach and pt instructed to call when she is done.
[2023-02-02] VITALS (8 sets, daily range): BP systolic 111–138; BP diastolic 67–76; PULSE 68–84; RESP 13–21; TEMP 36.5–37; O2SAT 91–97; BMI 21.4
[2023-02-02 00:18] LABS: Anion Gap 15 (12-20)
[2023-02-02 00:22] LABS: Alanine Aminotransferase 23 U/L (0-31); Albumin Level 3.6 g/dL (3.5-5.0); Alkaline Phosphatase 298 U/L (39-117); Aspartate Amino Transferase 27 U/L (5-31); Bilirubin Total 0.4 mg/dL (0.0-1.0); Blood Urea Nitrogen 14 mg/dL (9-16); Calcium 10.6 mg/dL (8.4-10.2); Carbon Dioxide 32 mmol/L (22-29); Chloride 93 mmol/L (96-108); Creatinine Clr Calc Pharmacy 60.8; Estimated Glomerular Filt Rate > 60; Glucose Fasting 90 mg/dL (60-99); Lipase 13 U/L (8-78); Potassium 2.9 mmol/L (3.3-5.1); Sodium 137 mmol/L (135-145)
[2023-02-02] MEDS: Magnesium Hydrox/Alum Hydrox 30 ML ORAL.SUSP PO (01:15)
--- NOTE | 2023-02-02 06:26 | ECG_ITS ---
Test Reason : ABD PAIN Blood Pressure : / mmHG Vent. Rate : 069 BPM Atrial Rate : 069 BPM P-R Int : 158 ms QRS Dur : 080 ms QT Int : 374 ms P-R-T Axes : 034 006 038 degrees QTc Int : 400 ms Normal sinus rhythm with sinus arrhythmia Normal ECG When compared with ECG of 23-MAY-2022 15:23, QT has shortened Referred By: Alejandro Kidd Electronically Signed By:FLORES REHMAN MD
[2023-02-02] MEDS: Potassium Chloride/H20 10 MEQ/100 ML PIGGYBACK 100 MEQ IV ×2 (06:40→08:06)
--- NOTE | 2023-02-02 08:18 | PC.NURSE ---
first bag of potassium infused, second bag hung however patient unable to tolerate the pain of it even with the normal saline. requesting to stop the potassium, potassium stopped. iv flushed patient reporting improvement in the pain after flush.
--- NOTE | 2023-02-02 09:36 | PC.NURSE ---
pt speaking w/ ED provider about plan of care at this time - provider states they will be speaking w/ hospitalist so attempt in admission can occur.
--- NOTE | 2023-02-02 09:52 | MHC.CM.ED ---
Received case management consult overnight. Patient came to the ER due to nausea/vomiting. Met with patient in regards to discharge planning. Patint lives with her daughter, ambualtes with a cane and receives Meals on [facility]els from [facility]. PCP verified as Dr Villalba. Patient sees Dr Durbin for oncology. Patient was diagnosed with Stage 4 cancer that is incurable. Patient was put on Chemo for Palliative Care. Chemo had to be stopped due to bleeding. Hospice was consulted but patient did not qualify for hospice because she was receiving palliative Chemo. Patient felt Chemo was helping at the time and didn't want to stop it. Patient has been experiencing nausea and vomiting for about 2 weeks. Patient was seen at [facility] ER on 01/19. Symptoms were treated and she was d/c'd home. Patient came to [facility] ER on 01/31. Symptoms were treated and she was d/c'd home. Patient returned to ER due to nauseous/vomiting. Patient is still unable to keep anything down. Griselda YOO made aware and will assess patient. Continue to monitor for d/c needs.
--- NOTE | 2023-02-02 10:11 | PC.NURSE ---
this RN resumed care of pt at this time. a&ox3, vss and up to date at this time, nsr on the residential monitor. pt verbalizing 8/10 generalized body pain at this time. p also states she is nauseous. med rec completed so morning meds can be provided to pt - provider aware of reconciliation. respirations even and unlabored. call cruz placed within reach.
--- NOTE | 2023-02-02 11:25 | PC.NURSE ---
vss and up to date at this time. nsr on the quality assurance monitor chassis. pt resting comfortably/sleeping in no apparent distress. respirations even and unlabored. call cruz placed within reach.
--- NOTE | 2023-02-02 12:10 | P.HPHOSP_ITS ---
History of Present Illness Date of Service: 02/02/23 Attending physician on admission: Matthew Gao Chief Complaint: intractable nausea/vomiting, weakness, po intolerance 67-year-old female with history of metastatic squamous cell carcinoma of cervix, renal mass, chronic pain syndrome, chronic anemia, opioid dependence, and rheumatoid arthritis presented to the ED earlier today for evaluation of intermittent severe epigastric pain with intractable nausea and vomiting with p.o. intolerance. She has been on high-dose narcotics for about 2 years and had been doing well. She states about 3 months ago, her PCP decided to start weaning her from the narcotics. She states since then she has had near constant nausea but about 1-2 weeks ago has not been able to tolerate fluids or food and has had recurrent vomiting with episodes occurring about 4-10 times daily. She has burning pain in her chest and throat with vomiting. It appears her MS Contin was changed from 30 mg b.i.d. to 15 mg daily about 5 days ago but she states she has not yet change to the decreased dose. She states while he has been decreasing the MS Contin he has also been increasing the frequency of the oxycodone. Despite this, she has continued to have the symptoms. She states the last week she has not made much urine and has not had a bowel movement secondary to lack of p.o. intake. She states she feels very weak and fatigued. Denies any fevers, chills, diarrhea, constipation, melena, hematochezia, hematemesis, lightheadedness, syncope, shortness of breath, or chest pressure. She was initially diagnosed with squamous cell carcinoma of the cervix about 7 years ago and underwent vaginal brachytherapy, radiation, and chemotherapy. Per the patient, she had been doing well but in the past year was diagnosed with renal mass/metastatic disease. She was told this is not curative but has undergone palliative chemo and is now on immunotherapy. Since radiation therapy she states she has had chronic pain diffusely over her body which had been previously well managed by her narcotic prescriptions. She had been recommended for hospice with pain pump but patient declined pump. Most recent PET scan did show improvement compared to priors. She is following with Dr. Durbin as well as [facility]. On arrival, VSS. No leukocytosis. Chronic normocytic anemia with H/H 10.9/33.5%. Renal function baseline. Na 137, K 2.9, Cl 93, CO2 32, Ca 10.6. Lipase 13. CT abd/pelvis ordered. EKG NSR, rate 69, no st/t wave abnormality. In the ED, has received 4 mg IV morphine, 4 mg ondansetron, Compazine, 20 mg IV potassium, Maalox, and 1 L IV NS. Throughout exam patient noted to take a sip of fluid and very shortly after dry heaves and vomits small amounts. Review of Systems 2 Review of Systems: General: No fevers, malaise, unintentional weight loss HEENT: +sore throat Cardiovascular: No chest pain, palpitations, or leg edema Respiratory: No shortness of breath, wheezing, cough GI: +abdominal pain, +nausea, +vomiting. No diarrhea, constipation, melena, hematochezia : No dysuria, hematuria, increased urinary frequency, decreased urinary output MSK: +diffuse pain Neuro: No headaches, weakness, paresthesias Skin: No rashes or lesions [facility] Medical History (Updated 02/02/23 @ 12:42 by FREDO Hernandez) Squamous cell carcinoma of cervix Complex regional pain syndrome i of lower limb, bilateral Anxiety with depression Chronic pain syndrome Osteoporosis Cervical cancer Opiate abuse, episodic Osteoarthritis of both knees Primary osteoarthritis of knees, bilateral Seropositive rheumatoid arthritis Back pain Family History Father Acute CVA (cerebrovascular accident) Mother Hypertension Hypercholesterolemia Brother Liver transplant status Family history of thyroid problem Surgical History History of D&C History of tonsillectomy History of appendectomy History of cholecystectomy Household Members: Children Housing: House Are you a primary healthcare educator to a significant other at home: Yes (mom) Do you presently have visiting nurse or other home services: No Alcohol intake: never Patient Tobacco Use Status: Former Tobacco user Quit Date: 2016 Tobacco use type: Cigarette Smoked in Last 30 Days: No e-Cigarette/Vaping Use: Never Used Second Hand Smoke Exposure: No Use of substances other than those prescribed or required for medical reasons: No Advance Directives: No Advance Directives Information Provided: No service: No 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 Cognitive needs: No Hearing needs: No Vision needs: No Meds Allergies Allergy/AdvReac Type Severity Reaction Status Date / Time buprenorphine [Belbuca] Allergy Intermediate Anaphylaxis Verified 01/31/23 17:48 Active Medications: Current Medications Acetaminophen (Acetaminophen 325 Mg Tablet) 650 mg PO Q6H PRN PRN Reason: Pain, Mild (Pain Scale 1-3) Clotrimazole (Clotrimazole 1 % Vaginal Cream 45 Gm Tube) appl VAGINAL BEDTIME [facility] Gabapentin (Gabapentin 300 Mg Capsule) 0 mg PO TID [facility] Gabapentin (Gabapentin 600 Mg Tablet) 600 mg PO DAILY [facility] Heparin Sodium (Porcine) (Heparin Sodium,Porcine 5,000 Unit/Ml Vial) 5,000 unit SUBCUT Q12H [facility] Sodium Chloride (Ns) 1,000 mls @ 100 mls/hr IVCONT .Q10H [facility] Loperamide HCl (Loperamide Hcl 2 Mg Capsule) 2 mg PO BID PRN PRN Reason: loose stool Lorazepam (Lorazepam 1 Mg Tablet) 0 mg PO BID PRN PRN Reason: anxiety Meclizine HCl (Meclizine Hcl 12.5 Mg Tablet) 12.5 mg PO DAILY PRN PRN Reason: dizziness Morphine Sulfate (Morphine Sulfate Er 15 Mg Tablet.Er) 15 mg PO DAILY [facility] Omeprazole (Omeprazole 20 Mg Capsule.Dr) 20 mg PO DAILY [facility] Ondansetron HCl (Ondansetron Odt 4 Mg Tab.Rapdis) 4 mg TRANSLINGU Q12H PRN PRN Reason: nausea and vomiting Ondansetron HCl (Ondansetron Odt 8 Mg Tab.Rapdis) 8 mg TRANSLINGU Q8H PRN PRN Reason: nausea Ondansetron HCl (Ondansetron Hcl 4 Mg/2 Ml Vial) 4 mg IVPUSH Q8H PRN PRN Reason: Nausea and Vomiting Polyethylene Glycol (Polyethylene Glycol 3350 17 Gm Powd.Pack) 17 gm PO DAILY [facility] Prednisone (Prednisone 5 Mg Tablet) 5 mg PO BID [facility] Promethazine HCl (Promethazine Hcl 25 Mg Supp.Rect) 25 mg TN Q6H PRN PRN Reason: nausea and vomiting Sertraline HCl (Sertraline Hcl 25 Mg Tablet) 75 mg PO DAILY [facility] Sodium Chloride (0.9 % Sodium Chloride Flush 3 Ml Syringe) 3 ml IVFLUSH QSHIFT [facility] Vitamin D (Cholecalciferol (Vitamin D3) 25 Mcg Tablet) 50 mcg PO DAILY [facility] Home Medications Medication Instructions Recorded Confirmed Last Taken Type alendronate 70 mg tablet 70 mg PO QWEEK 02/02/23 Unknown History celecoxib 200 mg capsule 200 mg PO BID PRN pain 02/02/23 Unknown History cholecalciferol (vitamin D3) 50 50 mcg PO DAILY 02/02/23 Unknown History mcg (2,000 unit) capsule (Vitamin D3) ferrous sulfate 325 mg (65 mg 325 mg PO BID 02/02/23 Unknown History iron) tablet gabapentin 600 mg tablet 600 mg PO DAILY 02/02/23 Unknown History lorazepam 1 mg tablet 1 - 2 mg PO BID PRN anxiety 02/02/23 02/02/23 Unknown History morphine 15 mg tablet,extended 15 mg PO DAILY 02/02/23 02/02/23 Unknown History release omeprazole 20 mg capsule,delayed 20 mg PO DAILY@0630 02/02/23 Unknown History release oxycodone 5 mg tablet 5 mg PO Q6H PRN pain 02/02/23 02/02/23 Unknown History prednisone 5 mg tablet 5 mg PO BID 02/02/23 Unknown History sertraline 50 mg tablet 75 mg PO DAILY 02/02/23 Unknown History Physical Exam 2 Vital Signs and Narrative: Vital Signs: Last Vital Signs Temp 97.8 F 02/02/23 08:43 Pulse 84 02/02/23 11:25 Resp 16 02/02/23 11:25 BP 111/68 02/02/23 11:25 Pulse Ox 95 02/02/23 11:25 O2 Del Method Room Air 02/02/23 11:25 BMI result Body Mass Index 21.5 Constitutional - Awake and Alert, No apparent distress Eyes - PERRLA, EOMI Cardiovascular - S1S2, RRR, No edema Respiratory - Normal lung expansion, Normal respiratory effort, No respiratory distress, CTA bilaterally Gastrointestinal - NT / ND; +BS; No rebound or guarding Extremities - no calf tenderness bilaterally, no swelling Skin - Warm/Dry Neurological - Alert & oriented x3, CN II-XII in tact, 5/5 strength BUE and BLE Psychological - Appropriate affect Results Labs 02/01/23 20:46 02/01/23 23:49 Labs: Laboratory Results - last 24 hr 02/01/23 02/01/23 20:46 23:49 MCV 83.1 MCH 27.0 MCHC 32.5 RDW 14.1 Plt Count 357 MPV 9.4 Immature Gran % (Auto) 0.3 Neut % (Auto) 80.6 H Lymph % (Auto) 10.3 L Kidder % (Auto) 7.7 Eos % (Auto) 0.7 Baso % (Auto) 0.4 Lymph # (Auto) 0.7 L Kidder # (Auto) 0.5 Eos # (Auto) 0.1 Baso # (Auto) 0.0 Abs Immat Gran (auto) 0.02 Absolute Neuts (auto) 5.6 Absolute Nucleated RBC 0.000 Nucleated RBC % (auto) 0.0 Anion Gap 15 Estim Creat Clear Calc 60.8 Estimated GFR > 60 Fasting Glucose 90 Calcium 10.6 H D Total Bilirubin 0.4 AST 27 ALT 23 Alkaline Phosphatase 298 H Total Protein 7.0 Albumin 3.6 Lipase 13 Assessment and Plan (1) Intractable nausea and vomiting: Status: Acute (2) Opiate withdrawal: Status: Acute Plan 67-year-old female with history of metastatic squamous cell carcinoma of cervix, renal mass, chronic pain syndrome, chronic anemia, opioid dependence, and rheumatoid arthritis admitted for intractable nausea and vomiting and uncontrolled pain r/t metastatic cervical cancer. #Intractable nausea/vomiting with p.o. intolerance- likely r/t opiate withdrawal 2/2 to weaning of chronic opiates -PCP weaning patient from high dose narcotics -CT abd/pelvis pending to r/o intra-abdominal pathology -Lipase normal -PRN antiemetics -Resume and optimize narcotic medications -keep NPO for now, advanced diet as tolerated -Continue IVF #Acute hypokalemia -2/2 to above -repleted in ED -Recheck lytes now, follow #Uncontrolled pain- r/t metastatic cervical cancer -Intolerant of PO at this -Given 1mg IV hydromorphone now and evaluate response re n/v, resume PO as tolerated -Can consider methadone for pain management, but need to consider outpatient management -Oncology consult #Metastatic cervical cancer -On palliative chemotherapy. Not a hospice candidate, does not desire pain pump -Oncology consult #RA/chronic pain syndrome -Pain management as above -Resume PO as tolerated -has not been taking gabapentin or prednisone in 3m due to above sx. Consider resuming at lower dose as tolerated #Mood disorder -continue lorazepam -has not been taking sertraline in 3m due to above sx. Consider resuming at lower dose as tolerated DVT prophylaxis- heparin DNR/DNI Pt requires inpt stay at least 2 midnights due to intractable nausea/vomiting with NPO status requiring IV antiemetics, IVF, resumption and optimization of narcotic pain medications, diet advancement as tolerated with close monitoring of renal function and electrolyte levels. Quality Stroke Does the patient have a stroke diagnosis?: No VTE Prior VTE?: No VTE Risk Level:: Medical - moderate - high VTE Device Contraindication: Treatment Not Indicated VTE Drug Contraindication: N/A - Med Ordered
[2023-02-02] MEDS: 0.9 % Sodium Chloride 1,000 ML 100 ML IVCONT ×2 (12:39→23:23)
--- NOTE | 2023-02-02 12:41 | PHA.MEDREC ---
Addendum entered by Tessy Hwang [facility] 02/02/23 13:08: Spoke with Taylor Woodson regarding this patients med rec. Patient has not been taking maintenance medications regularly. Md reported patient not being able to tolerate medications. Ultimately added her maintenance medications back on to the med rec but left as unconfirmed in case they need to be restarted. Addendum entered by Talia An 02/02/23 12:49: Per note from 01/15, patient also stopped meloxicam and alendronate. Original Note: Pharmacy Consult ? Medication Reconciliation Pharmacy has completed the medication reconciliation. spoke with patient to confirm medications. She reports stopping most of her medications due to her situation. Medications that she has stopped taking (about a month ago) are celebrex, vitamin D3, iron, gabapentin, meclizine, omeprazole, prednisone, and sertraline. She reports being on morphine 15mg q12h, lorazepam prn, and oxycodone 5mg q6h prn. All of them match with the PDMP. However, oxycodone is written for 2.5mg in the morning and 5mg at noon, in the afternoon, and at bedtime.
[2023-02-02] MEDS: HYDROmorphone HCl 1 MG/ML SYRINGE IVPUSH ×3 (12:42→20:38)
[2023-02-02] MEDS: Heparin Sodium,Porcine 5,000 UNIT/ML VIAL 5000 UNIT SUBCUT (12:43)
--- NOTE | 2023-02-02 12:49 | PC.NURSE ---
medications administered per provider order. potassium administered via IV at this time.
--- NOTE | 2023-02-02 13:02 | PC.NURSE ---
pt to CT at this time.
[2023-02-02 13:49] LABS: Anion Gap 18 (12-20); Blood Urea Nitrogen 12 mg/dL (9-16); Calcium 10.1 mg/dL (8.4-10.2); Carbon Dioxide 33 mmol/L (22-29); Chloride 92 mmol/L (96-108); Creatinine Clr Calc Pharmacy 69.1; Estimated Glomerular Filt Rate > 60; Glucose Random 97 mg/dL (60-115); Sodium 140 mmol/L (135-145)
[2023-02-02] MEDS: LORazepam 1 MG TABLET PO (16:15)
[2023-02-02] MEDS: ondansetron HCL 4 MG/2 ML VIAL IVPUSH (16:15)
--- NOTE | 2023-02-02 16:18 | PC.NURSE ---
PT STATES SHE IS FEELING NASEAUTED AND HAS GENERALIZED BODY PAIN. SHE WAS MEDICATED CHARTED AWAITING TRANSFER TO FLOOR.
[2023-02-02] MEDS: 0.9 % Sodium Chloride Flush 3 ML SYRINGE IVFLUSH ×2 (16:24→20:39)
--- NOTE | 2023-02-02 16:43 | PC.NURSE ---
pt being transported upstairs at this time.
--- NOTE | 2023-02-02 18:28 | PM.HEMONCCN ---
Subjective - Subjective Chief complaint: Consult for: Gastroenteritis. Cervical Cancer. Patient: known to practice within the last 3 years Consult date: 02/02/23 Requesting Physician: leilani Primary Care Provider: Sivakumar Physician Medical Summary: DIAGNOSIS: 1. N/V. 2. CERVICAL CANCER. HPI - Consult Narrative Reason for consult: Consult for: Nausea, vomiting, abdominal pain. Narrative: Evelyn Marin is a 67 year old lady, who presented with intermittent abdominal pain, nausea and vomiting. She has had a H/O cervical cancer. She was on narcotics for a couple of years. These were being tapered by her PMD. She dated the nausea to that. Recently she has not been able to hold any food down. She has been feeling rather fatigued. H/O metastatic squamous cell carcinoma of cervix, renal mets. She recieved four cycles of chemo/Immunotherapy: Carboplatin,Taxol and Pembrolizumab between April and June. Subsequently she decided to discontinue further therapy. She has been on palliative care. HISTORY OF PRESENT ILLNESS: She has been on high-dose narcotics for about 2 years and had been doing well. She states about 3 months ago, her PCP decided to start weaning her from the narcotics. She states since then she has had near constant nausea but about 1-2 weeks ago has not been able to tolerate fluids or food and has had recurrent vomiting with episodes occurring about 4-10 times daily. She has burning pain in her chest and throat with vomiting. It appears her MS Contin was changed from 30 mg b.i.d. to 15 mg daily about 5 days ago but she states she has not yet change to the decreased dose. She states while he has been decreasing the MS Contin he has also been increasing the frequency of the oxycodone. Despite this, she has continued to have the symptoms. She states the last week she has not made much urine and has not had a bowel movement secondary to lack of p.o. intake. She states she feels very weak and fatigued. Denies any fevers, chills, diarrhea, constipation, melena, hematochezia, hematemesis, lightheadedness, syncope, shortness of breath, or chest pressure. She was initially diagnosed with squamous cell carcinoma of the cervix about 7 years ago and underwent vaginal brachytherapy, radiation, and chemotherapy. Per the patient, she had been doing well but in the past year was diagnosed with renal mass/metastatic disease. She was told this is not curative but has undergone palliative chemo and is now on immunotherapy. Since radiation therapy she states she has had chronic pain diffusely over her body which had been previously well managed by her narcotic prescriptions. She had been recommended for hospice with pain pump but patient declined pump. Most recent PET scan did show improvement compared to priors. She is following with Dr. Durbin as well as [facility]. On arrival, VSS. No leukocytosis. Chronic normocytic anemia with H/H 10.9/33.5%. Renal function baseline. Na 137, K 2.9, Cl 93, CO2 32, Ca 10.6. Lipase 13. CT abd/pelvis ordered. EKG NSR, rate 69, no st/t wave abnormality. In the ED, she received 4 mg IV morphine, 4 mg ondansetron, Compazine, 20 mg IV potassium, Maalox, and 1 L IV NS. Patient noted to take a sip of fluid and very shortly after dry heaves and vomits small amounts. Review of Systems Review of Systems: General: No fevers, malaise, unintentional weight loss HEENT: +sore throat Cardiovascular: No chest pain, palpitations, or leg edema Respiratory: No shortness of breath, wheezing, cough GI: +abdominal pain, +nausea, +vomiting. No diarrhea, constipation, melena, hematochezia : No dysuria, hematuria, increased urinary frequency, decreased urinary output MSK: +diffuse pain Neuro: No headaches, weakness, paresthesias Skin: No rashes or lesions [facility] Medical History: Squamous cell carcinoma of cervix Complex regional pain syndrome of lower limb, bilateral chronic pain syndrome, chronic anemia, opioid dependence, Rheumatoid arthritis. Anxiety with depression Chronic pain syndrome Osteoporosis Cervical cancer Opiate abuse, episodic Osteoarthritis of both knees Primary osteoarthritis of knees, bilateral Seropositive rheumatoid arthritis Back pain Surgical History: History of D&C History of tonsillectomy History of appendectomy History of cholecystectomy Family History: Father Acute CVA (cerebrovascular accident) Mother Hypertension Hypercholesterolemia Brother Liver transplant for cirrhosis. Developed mouth cancer. 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 She is . Has 2 children. She smoked a pack-a-day quit 15 years ago. She used to drink socially, but quit. Household Members: Children Housing: House Are you a primary hospice care sales consultant to a significant other at home: Yes (mom) Do you presently have visiting nurse or other home services: No Alcohol intake: never Patient Tobacco Use Status: Former Tobacco user Quit Date: 2016 Tobacco use type: Cigarette Smoked in Last 30 Days: No e-Cigarette/Vaping Use: Never Used Second Hand Smoke Exposure: No Use of substances other than those prescribed or required for medical reasons: No Review of Systems - Constitutional Reports system reviewed and no additional complaints, except as documented, Reports anorexia, Reports fatigue, Reports lack of energy, Reports malaise, Reports weakness, Reports weight loss - Eyes Reports system reviewed and no additional complaints, except as documented - ENT Reports system reviewed and no additional complaints, except as documented - Cardiovascular Reports system reviewed and no additional complaints, except as documented - Respiratory Reports no additional respiratory complaints - Gastrointestinal Reports system reviewed and no additional complaints, except as documented - Genitourinary Reports no additional female genitourinary complaints - Musculoskeletal Reports system reviewed and no additional complaints, except as documented - Integumentary/Breasts Skin/Breast: Reports no additional skin complaints - Neurologic Reports system reviewed and no additional complaints, except as documented - Psychiatric Reports system reviewed and no additional complaints, except as documented - Endocrine Reports no additional endocrine complaints - Hematologic/Lymphatic Reports system reviewed and no additional complaints, except as documented - Allergic/Immunologic Reports system reviewed and no additional complaints, except as documented PMFSH Medical History: Medical History (Last Updated 02/08/23 @ 10:38 by Neftali Sanchez MD) Anxiety with depression Back pain Cervical cancer Chronic pain syndrome Complex regional pain syndrome i of lower limb, bilateral Delayed gastric emptying Opiate abuse, episodic Osteoarthritis of both knees Osteoporosis Primary osteoarthritis of knees, bilateral Seropositive rheumatoid arthritis Squamous cell carcinoma of cervix Functional capacity: uses cane/walker Patient : No Family History: Family History (Last Reviewed 02/02/23 @ 12:23 by FREDO Hernandez) Father Acute CVA (cerebrovascular accident) Mother Hypertension Hypercholesterolemia Brother Liver transplant status Family history of thyroid problem Surgical History: Surgical History (Last Reviewed 02/02/23 @ 12:23 by FREDO Hernandez) History of appendectomy History of cholecystectomy History of D&C History of tonsillectomy Social History: Social History (Last Reviewed 02/02/23 @ 12:23 by FREDO Hernandez) Living Situation History: Household Members: Children Housing: House Are you a primary hospice care sales consultant to a significant other at home: Yes Are you a primary hospice care sales consultant to a significant other at home comment: mom Do you presently have visiting nurse or other home services: Yes Tobacco History: Patient Tobacco Use Status: Former Tobacco user Tobacco use type: Cigarette Smoke Quit Date: 2016 e-Cigarette/Vaping Use: Never Used Second Hand Smoke Exposure: No Occupation Assessmet: service: No 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 Medications and Allergies Current Medications: Current Medications Acetaminophen (Acetaminophen 325 Mg Tablet) 650 mg PO Q6H PRN PRN Reason: Pain, Mild (Pain Scale 1-3) Clotrimazole (Clotrimazole 1 % Vaginal Cream 45 Gm Tube) 1 appl VAGINAL BEDTIME [facility] Stop: 02/09/23 20:59 Heparin Sodium (Porcine) (Heparin Sodium,Porcine 5,000 Unit/Ml Vial) 5,000 unit SUBCUT Q12H [facility] Last Admin: 02/02/23 12:43 Dose: 5,000 unit Hydromorphone HCl (Hydromorphone Hcl 1 Mg/Ml Syringe) 1 mg IVPUSH Q2H PRN; Protocol PRN Reason: moderate pain Last Admin: 02/02/23 17:08 Dose: 1 mg Hydromorphone HCl (Hydromorphone Hcl 1 Mg/Ml Syringe) 1 mg IVPUSH Q3H PRN; Protocol PRN Reason: Pain, Severe (Pain Scale 7-10) Sodium Chloride (Ns) 1,000 mls @ 100 mls/hr IVCONT .Q10H [facility] Last Admin: 02/02/23 12:39 Dose: 100 mls/hr Loperamide HCl (Loperamide Hcl 2 Mg Capsule) 2 mg PO BID PRN PRN Reason: loose stool Lorazepam (Lorazepam 1 Mg Tablet) 1 mg PO BID PRN PRN Reason: anxiety Last Admin: 02/02/23 16:15 Dose: 1 mg Meclizine HCl (Meclizine Hcl 12.5 Mg Tablet) 12.5 mg PO DAILY PRN PRN Reason: dizziness Ondansetron HCl (Ondansetron Hcl 4 Mg/2 Ml Vial) 4 mg IVPUSH Q8H PRN PRN Reason: Nausea and Vomiting Last Admin: 02/02/23 16:15 Dose: 4 mg Promethazine HCl (Promethazine Hcl 25 Mg Supp.Rect) 25 mg NE Q6H PRN PRN Reason: nausea and vomiting Last Admin: 02/02/23 17:52 Dose: 25 mg Sodium Chloride (0.9 % Sodium Chloride Flush 3 Ml Syringe) 3 ml IVFLUSH QSHIFT [facility] Last Admin: 02/02/23 16:24 Dose: 3 ml Vitamin D (Cholecalciferol (Vitamin D3) 25 Mcg Tablet) 50 mcg PO DAILY [facility] Home Medications Medication Instructions Recorded Confirmed Type alendronate 70 mg tablet 70 mg PO QWEEK 02/02/23 History celecoxib 200 mg capsule 200 mg PO BID PRN pain 02/02/23 History cholecalciferol (vitamin D3) 50 50 mcg PO DAILY 02/02/23 History mcg (2,000 unit) capsule (Vitamin D3) ferrous sulfate 325 mg (65 mg 325 mg PO BID 02/02/23 History iron) tablet gabapentin 600 mg tablet 600 mg PO DAILY 02/02/23 History lorazepam 1 mg tablet 1 - 2 mg PO BID PRN anxiety 02/02/23 02/02/23 History morphine 15 mg tablet,extended 15 mg PO DAILY 02/02/23 02/02/23 History release omeprazole 20 mg capsule,delayed 20 mg PO DAILY@0630 02/02/23 History release oxycodone 5 mg tablet 2.5 mg PO DAILY PRN Pain (Scale 02/02/23 02/02/23 History Score 4-6) oxycodone 5 mg tablet 5 mg PO TID@1200,1600,2100 PRN pain 02/02/23 02/02/23 History prednisone 5 mg tablet 5 mg PO BID 02/02/23 History sertraline 50 mg tablet 75 mg PO DAILY 02/02/23 History Allergies Allergy/AdvReac Type Severity Reaction Status Date / Time buprenorphine [Belbuca] Allergy Intermediate Anaphylaxis Verified 01/31/23 17:48 Physical Exam Vital signs: Vital Signs Temp 98.5 F 02/02/23 17:03 Pulse 73 02/02/23 17:03 Resp 15 02/02/23 17:03 BP 138/73 02/02/23 17:03 Pulse Ox 96 02/02/23 17:03 O2 Del Method Room Air 02/02/23 17:03 Intake & Output 11/02/02/23 02/02/23 18:59 06:59 18:59 Intake Total 1000 / 1000 200 / 200 Balance 1000 / 1000 200 / 200 Intake: Intake, IV Amount 1000 / 1000 200 / 200 0.9 % Sodium Chloride 1,000 ml 1000 / 1000 @ 999 mls/hr IV .Q1H1M ONE Rx#: [id number] Potassium Chloride/H20 10 meq 200 / 200 In 100 ml @ 100 mls/hr IV Q1H LUIS M Rx#:[id number] Other: NPO Yes Weight 58.6 kg 58.3 kg [place] Weight in Grams [id number] Weight 58.3 kg - Constitutional Present: moderate distress - Routine HEENT Exam Head: Present: atraumatic, normal inspection Eye: Present: normal appearance ENT: Present: mucous membranes moist - Routine Neck Exam Present: supple - Routine Respiratory Exam Present: CTAB - Routine Cardiovascular Exam Cardiovascular: Present: RRR, S1, S2 - Routine Abdominal Exam Present: distended, tenderness, nontender - Routine Extremities Exam Present: nontender Hem/Onc Consult Result - Labs CBC & Chem 7: 02/06/23 08:47 02/08/23 09:52 Labs: Short CBC 02/01/23 Range/Units 20:46 WBC 7.0 (4.8-10.8) X10*3/uL Hgb 10.9 L (12.0-16.0) g/dl Hct 33.5 L (37.0-47.0) % Plt Count 357 (160-400) X10*3/uL BMP 02/01/23 02/02/23 23:49 13:24 Sodium 137 140 Potassium 2.9 L 3.0 L Chloride 93 L 92 L Carbon Dioxide 32 H 33 H BUN 14 12 Creatinine 0.83 0.73 Calcium 10.6 H D 10.1 Liver Function 02/01/23 Range/Units 23:49 Total Bilirubin 0.4 (0.0-1.0) mg/dL AST 27 (5-31) U/L ALT 23 (0-31) U/L Alkaline Phosphatase 298 H (39-117) U/L Albumin 3.6 (3.5-5.0) g/dL Assessment and Plan Patient Active problem list reviewed?: Yes (1) Metastasis from cervical cancer Status: Acute Assessment and plan: This is an unfortunate 67 year old lady with a H/O Cervical Carcinoma, with metastases, was on narcotics due to pain. These were being tapered. She tells me right after that, started developing nausea, vomiting. She has had intractible abdominal pain. She also complains of pain all over her body. CT scan of the abdomen/pelvis from 02/02 revealed: Diffuse fluid-filled small bowel loops and oral contrast opacified colon with no transition point. There is mild mural thickening involving distal sigmoid colon and rectum with perirectal colic fat stranding suggestive of low-grade inflammatory process involving these organs. Mild presacral soft tissue thickening is seen as well. No free air or free fluid seen. Dilated CBD an expected finding post cholecystectomy. Calcified right adrenal mass. There is no significant change in the calcified adrenal mass compared to FDG study 10/09/2022. PLAN: She has been started on low dose Dialudid. I will monitor her response to the analgesic regimen. She has been restarted on gabapentin, Prednisone and Celexa as well. Thank you for the consult, Will follow. Cc: Deejay. - Time Spent With Patient Time Spent with Patient (in minutes): 30
--- NOTE | 2023-02-02 18:50 | PC.NURSE ---
Spoke with patients PCP today. He stated that he has written extensive notes on patient regarding regarding her condition and regarding hematology / oncology asking to have PCP wean down narcotics. Notes are available to hospitalists, as PCP is from [facility]
--- NOTE | 2023-02-02 19:51 | PM.EVENT ---
Event Note Date of Service: 02/02/23 Event Note: Pt potassium still low at 3.0 despite 20meq IV KCl earlier today. She tells me she had large volume emesis about 3 hours ago. Pain and vomiting in ED did resolve with low dose dilaudid. Pt again brings up that she has not had her MS contin and oxycodone. Discussed that she has not been able to tolerate PO. She tells me she can. Will try oral repletion of KCL and reevaluate resuming MS contin at lower dose. Give dose dilaudid now as ordered. Discussed with RN. Will reevaluate. Time Spent With Patient Time: Total time managing care of this patient today ____ minutes.
[2023-02-02] MEDS: Potassium Chloride Packet 20 MEQ PACKET 40 MEQ PO (20:37)
[2023-02-02] MEDS: Clotrimazole 1 % Vaginal Cream 45 GM TUBE 1 APPL VAGINAL (21:39)
[2023-02-03] VITALS (7 sets, daily range): BP systolic 102–132; BP diastolic 50–65; PULSE 69–78; RESP 17–18; TEMP 35.9–37.1; O2SAT 92–95
[2023-02-03] MEDS: HYDROmorphone HCl 1 MG/ML SYRINGE IVPUSH ×6 (00:29→21:38)
[2023-02-03] MEDS: Heparin Sodium,Porcine 5,000 UNIT/ML VIAL 5000 UNIT SUBCUT ×3 (00:29→23:58)
[2023-02-03] MEDS: LORazepam 1 MG TABLET PO ×2 (04:00→19:58)
[2023-02-03] MEDS: ondansetron HCL 4 MG/2 ML VIAL IVPUSH ×3 (04:00→21:38)
[2023-02-03 06:18] LABS: MANUAL DIFF FLAG NO
[2023-02-03 06:38] LABS: Anion Gap 19 (12-20); Blood Urea Nitrogen 12 mg/dL (9-16); Calcium 9.5 mg/dL (8.4-10.2); Carbon Dioxide 28 mmol/L (22-29); Chloride 98 mmol/L (96-108); Estimated Glomerular Filt Rate > 60; Glucose Random 86 mg/dL (60-115); Potassium 3.5 mmol/L (3.3-5.1); Sodium 141 mmol/L (135-145)
[2023-02-03 06:40] LABS: Basophils Percent Auto 0.5 % (0-2); Eosinophils Percent Auto 0.5 % (0-4); Imm Gran Abs Auto 0.02 X10*3/uL (0.00-0.03); Imm Gran Pct Auto 0.3 % (0.0-0.4); Lymphocytes Absolute Auto 0.9 X10*3/uL (1.2-4.9); Lymphocytes Percent Auto 14.3 % (20-40); Mean Corpuscular HGB Conc 31.4 g/dl (31.0-35.0); Mean Corpuscular Hemoglobin 26.9 pg (27.0-33.0); Mean Corpuscular Volume 85.6 fL (80.0-98.0); Mean Platelet Volume 9.4 fL (9.4-12.3); Monocytes Absolute Auto 0.5 X10*3/uL (0.1-1.2); Monocytes Percent Auto 7.6 % (2-11); Neutrophils Absolute Auto 5.1 x10*3/uL (2.0-8.3); Neutrophils Percent Auto 76.8 % (45-73); Platelet Count 361 X10*3/uL (160-400); Red Blood Count 4.09 X10*6/uL (4.20-5.50); Red Cell Distribution Width 14.5 % (11.0-16.0); White Blood Count 6.6 X10*3/uL (4.8-10.8)
[2023-02-03] MEDS: Cholecalciferol (Vitamin D3) 25 MCG TABLET 50 MCG PO (09:24)
[2023-02-03] MEDS: 0.9 % Sodium Chloride 1,000 ML 100 ML IVCONT ×2 (09:26→22:03)
--- NOTE | 2023-02-03 14:59 | MHC.CM.PN ---
PT REPORTS SHE LIVES AT HOME WITH HER DAUGHTER WHO ASSISTS PRN SHE IS ACTIVE WITH [facility] FOR MOW AND A SOCIAL INSURANCE ADMINISTRATOR THAT DOES HER LAUNDRY SHE SAYS SHE USUALLY USES A CANE AND ALSO HAS A WALKER, HOWEVER SHE IS UNABLE TO AMBULATE FAR AT BASELINE SHE SAYS SHE HAS A HCP. COPY REQUESTED PCP: CHAU SANDERSON IMM DELIVERED DCP: HOME [facility] AND [facility] DAUGHTER TO TRANSPORT
--- NOTE | 2023-02-03 16:59 | PM.HEMONCPN ---
Medical Summary - Medical Summary Date of Service: 02/03/23 Chief complaint: Follow-up for: Nausea vomiting, epigastric pain, cervical carcinoma Primary Care Provider: Unknown Physician Medical Summary: DIAGNOSIS: 1. N/V. 2. CERVICAL CANCER. Interval History Interval history: Evelyn Marin is a 67 year old lady, she had presented with intermittent abdominal pain, nausea and vomiting. She has had a H/O cervical cancer. She was on narcotics for a couple of years. These were being tapered by her PMD. She dated the nausea to that. Recently she had not been able to hold any food down. She has been feeling rather fatigued. Today she feels a little bit better. She has not had any further episodes of vomiting. Her abdominal pain is controlled with the IV Dilaudid. HISTORY OF PRESENT ILLNESS: H/O metastatic squamous cell carcinoma of cervix, renal mets. She recieved four cycles of chemo/Immunotherapy: Carboplatin,Taxol and Pembrolizumab between April and June. Subsequently she decided to discontinue further therapy. She has been on palliative care. She has been on high-dose narcotics for about 2 years and had been doing well. She states about 3 months ago, her PCP decided to start weaning her from the narcotics. She states since then she has had near constant nausea but about 1-2 weeks ago has not been able to tolerate fluids or food and has had recurrent vomiting with episodes occurring about 4-10 times daily. She has burning pain in her chest and throat with vomiting. It appears her MS Contin was changed from 30 mg b.i.d. to 15 mg daily about 5 days ago but she states she has not yet change to the decreased dose. She states while he has been decreasing the MS Contin he has also been increasing the frequency of the oxycodone. Despite this, she has continued to have the symptoms. She states the last week she has not made much urine and has not had a bowel movement secondary to lack of p.o. intake. She states she feels very weak and fatigued. Denies any fevers, chills, diarrhea, constipation, melena, hematochezia, hematemesis, lightheadedness, syncope, shortness of breath, or chest pressure. She was initially diagnosed with squamous cell carcinoma of the cervix about 7 years ago and underwent vaginal brachytherapy, radiation, and chemotherapy. Per the patient, she had been doing well but in the past year was diagnosed with renal mass/metastatic disease. She was told this is not curative but has undergone palliative chemo and is now on immunotherapy. Since radiation therapy she states she has had chronic pain diffusely over her body which had been previously well managed by her narcotic prescriptions. She had been recommended for hospice with pain pump but patient declined pump. Most recent PET scan did show improvement compared to priors. She is following with Dr. Durbin as well as [facility]. On arrival, VSS. No leukocytosis. Chronic normocytic anemia with H/H 10.9/33.5%. Renal function baseline. Na 137, K 2.9, Cl 93, CO2 32, Ca 10.6. Lipase 13. CT abd/pelvis ordered. EKG NSR, rate 69, no st/t wave abnormality. In the ED, she received 4 mg IV morphine, 4 mg ondansetron, Compazine, 20 mg IV potassium, Maalox, and 1 L IV NS. Patient noted to take a sip of fluid and very shortly after dry heaves and vomits small amounts. Review of Systems Review of Systems: General: No fevers, malaise, unintentional weight loss HEENT: +sore throat Cardiovascular: No chest pain, palpitations, or leg edema Respiratory: No shortness of breath, wheezing, cough GI: +abdominal pain, +nausea, +vomiting. No diarrhea, constipation, melena, hematochezia : No dysuria, hematuria, increased urinary frequency, decreased urinary output MSK: +diffuse pain Neuro: No headaches, weakness, paresthesias Skin: No rashes or lesions [facility] Medical History: Squamous cell carcinoma of cervix Complex regional pain syndrome of lower limb, bilateral chronic pain syndrome, chronic anemia, opioid dependence, Rheumatoid arthritis. Anxiety with depression Chronic pain syndrome Osteoporosis Cervical cancer Opiate abuse, episodic Osteoarthritis of both knees Primary osteoarthritis of knees, bilateral Seropositive rheumatoid arthritis Back pain Surgical History: History of D&C History of tonsillectomy History of appendectomy History of cholecystectomy Family History: Father Acute CVA (cerebrovascular accident) Mother Hypertension Hypercholesterolemia Brother Liver transplant for cirrhosis. Developed mouth cancer. 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 She is . Has 2 children. She smoked a pack-a-day quit 15 years ago. She used to drink socially, but quit. Household Members: Children Housing: House Are you a primary resident care associate to a significant other at home: Yes (mom) Do you presently have visiting nurse or other home services: No Alcohol intake: never Patient Tobacco Use Status: Former Tobacco user Quit Date: 2016 Tobacco use type: Cigarette Smoked in Last 30 Days: No e-Cigarette/Vaping Use: Never Used Second Hand Smoke Exposure: No Use of substances other than those prescribed or required for medical reasons: No Review of Systems - Neurologic Reports system reviewed and no additional complaints, except as documented, Reports weakness [facility] Medical History: Medical History (Last Updated 02/08/23 @ 10:38 by Neftali Sanchez MD) Anxiety with depression Back pain Cervical cancer Chronic pain syndrome Complex regional pain syndrome i of lower limb, bilateral Delayed gastric emptying Opiate abuse, episodic Osteoarthritis of both knees Osteoporosis Primary osteoarthritis of knees, bilateral Seropositive rheumatoid arthritis Squamous cell carcinoma of cervix Functional capacity: uses cane/walker Family History: Family History (Last Reviewed 02/02/23 @ 12:23 by FREDO Hernandez) Father Acute CVA (cerebrovascular accident) Mother Hypertension Hypercholesterolemia Brother Liver transplant status Family history of thyroid problem Surgical History: Surgical History (Last Reviewed 02/02/23 @ 12:23 by FREDO Hernandez) History of appendectomy History of cholecystectomy History of D&C History of tonsillectomy Social History: Social History (Last Reviewed 02/02/23 @ 12:23 by FREDO Hernandez) Living Situation History: Household Members: Children Housing: House Are you a primary resident care associate to a significant other at home: Yes Are you a primary resident care associate to a significant other at home comment: mom Do you presently have visiting nurse or other home services: Yes Tobacco History: Patient Tobacco Use Status: Former Tobacco user Tobacco use type: Cigarette Smoke Quit Date: 2016 e-Cigarette/Vaping Use: Never Used Second Hand Smoke Exposure: No Occupation Assessmet: service: No 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 Medications and Allergies Current Medications: Current Medications Acetaminophen (Acetaminophen 325 Mg Tablet) 650 mg PO Q6H PRN PRN Reason: Pain, Mild (Pain Scale 1-3) Clotrimazole (Clotrimazole 1 % Vaginal Cream 45 Gm Tube) 1 appl VAGINAL BEDTIME [facility] Stop: 02/09/23 20:59 Last Admin: 02/02/23 21:39 Dose: 1 appl Heparin Sodium (Porcine) (Heparin Sodium,Porcine 5,000 Unit/Ml Vial) 5,000 unit SUBCUT Q12H [facility] Last Admin: 02/03/23 12:05 Dose: 5,000 unit Hydromorphone HCl (Hydromorphone Hcl 1 Mg/Ml Syringe) 1 mg IVPUSH Q2H PRN; Protocol PRN Reason: moderate pain Last Admin: 02/03/23 16:08 Dose: 1 mg Hydromorphone HCl (Hydromorphone Hcl 1 Mg/Ml Syringe) 1 mg IVPUSH Q3H PRN; Protocol PRN Reason: Pain, Severe (Pain Scale 7-10) Last Admin: 02/03/23 13:08 Dose: 1 mg Sodium Chloride (Ns) 1,000 mls @ 100 mls/hr IVCONT .Q10H [facility] Last Admin: 02/03/23 09:26 Dose: 100 mls/hr Loperamide HCl (Loperamide Hcl 2 Mg Capsule) 2 mg PO BID PRN PRN Reason: loose stool Lorazepam (Lorazepam 1 Mg Tablet) 1 mg PO BID PRN PRN Reason: anxiety Last Admin: 02/03/23 04:00 Dose: 1 mg Meclizine HCl (Meclizine Hcl 12.5 Mg Tablet) 12.5 mg PO DAILY PRN PRN Reason: dizziness Ondansetron HCl (Ondansetron Hcl 4 Mg/2 Ml Vial) 4 mg IVPUSH Q8H PRN PRN Reason: Nausea and Vomiting Last Admin: 02/03/23 13:17 Dose: 4 mg Promethazine HCl (Promethazine Hcl 25 Mg Supp.Rect) 25 mg OR Q6H PRN PRN Reason: nausea and vomiting Last Admin: 02/03/23 16:14 Dose: 25 mg Sodium Chloride (0.9 % Sodium Chloride Flush 3 Ml Syringe) 3 ml IVFLUSH QSHIFT [facility] Last Admin: 02/03/23 14:49 Dose: Not Given Vitamin D (Cholecalciferol (Vitamin D3) 25 Mcg Tablet) 50 mcg PO DAILY [facility] Last Admin: 02/03/23 09:24 Dose: 50 mcg Home Medications Medication Instructions Recorded Confirmed Type alendronate 70 mg tablet 70 mg PO QWEEK 02/02/23 History celecoxib 200 mg capsule 200 mg PO BID PRN pain 02/02/23 History cholecalciferol (vitamin D3) 50 50 mcg PO DAILY 02/02/23 History mcg (2,000 unit) capsule (Vitamin D3) ferrous sulfate 325 mg (65 mg 325 mg PO BID 02/02/23 History iron) tablet gabapentin 600 mg tablet 600 mg PO DAILY 02/02/23 History lorazepam 1 mg tablet 1 - 2 mg PO BID PRN anxiety 02/02/23 02/02/23 History morphine 15 mg tablet,extended 15 mg PO DAILY 02/02/23 02/02/23 History release omeprazole 20 mg capsule,delayed 20 mg PO DAILY@0630 02/02/23 History release oxycodone 5 mg tablet 2.5 mg PO DAILY PRN Pain (Scale 02/02/23 02/02/23 History Score 4-6) oxycodone 5 mg tablet 5 mg PO TID@1200,1600,2100 PRN pain 02/02/23 02/02/23 History prednisone 5 mg tablet 5 mg PO BID 02/02/23 History sertraline 50 mg tablet 75 mg PO DAILY 02/02/23 History Allergies Allergy/AdvReac Type Severity Reaction Status Date / Time buprenorphine [Belbuca] Allergy Intermediate Anaphylaxis Verified 01/31/23 17:48 Exam Vital signs: Vital Signs Temp 98.3 F 02/03/23 15:59 Pulse 70 02/03/23 15:59 Resp 17 02/03/23 15:59 BP 116/65 02/03/23 15:59 Pulse Ox 95 02/03/23 15:59 O2 Del Method Room Air 02/03/23 15:59 Intake & Output 02/02/23 02/03/23 02/03/23 18:59 06:59 18:59 Intake Total 200 / 1200 1000 / 1200 1000 / 1000 Balance 200 / 1200 1000 / 1200 1000 / 1000 Intake: Intake, Oral Amount 0 / 0 Intake, IV Amount 200 / 1200 1000 / 1200 1000 / 1000 Potassium Chloride/H20 10 meq 200 / 200 In 100 ml @ 100 mls/hr IV Q1H [facility] Rx#:[id number] 0.9 % Sodium Chloride 1,000 ml 1000 / 1000 1000 / 1000 @ 100 mls/hr IVCONT .Q10H [facility] Rx#:[id number] Other: Meal Refused No No NPO Yes Yes Yes Number of Incontinent Voids 1 Number of Unmeasured Voids 1 2 Number of Bowel Movements 1 Urine Bathroom Bathroom Urine Color Yellow Yellow Stool Incontinent Stool Amount Moderate Stool Color Black (Tarry) Stool Consistency Loose Weight 58.3 kg Weight in Grams 09390 Weight 58.3 kg BMI result Body Mass Index 21.4 - Constitutional Present: moderate distress - Routine HEENT Exam Head: Present: atraumatic, normal inspection - Routine Respiratory Exam Present: CTAB - Routine Cardiovascular Exam Cardiovascular: Present: RRR, S1, S2 - Routine Abdominal Exam Present: distended, tenderness, nontender - Routine Extremities Exam Present: nontender Data - Labs CBC & Chem 7: 02/06/23 08:47 02/08/23 09:52 Labs: Laboratory Last Values WBC 6.6 X10*3/uL (4.8-10.8) 02/03/23 06:12 RBC 4.09 X10*6/uL (4.20-5.50) L 02/03/23 06:12 Hgb 11.0 g/dl (12.0-16.0) L 02/03/23 06:12 Hct 35.0 % (37.0-47.0) L 02/03/23 06:12 MCV 85.6 fL (80.0-98.0) 02/03/23 06:12 MCH 26.9 pg (27.0-33.0) L 02/03/23 06:12 MCHC 31.4 g/dl (31.0-35.0) 02/03/23 06:12 RDW 14.5 % (11.0-16.0) 02/03/23 06:12 Plt Count 361 X10*3/uL (160-400) 02/03/23 06:12 MPV 9.4 fL (9.4-12.3) 02/03/23 06:12 Immature Gran % (Auto) 0.3 % (0.0-0.4) 02/03/23 06:12 Neut % (Auto) 76.8 % (45-73) H 02/03/23 06:12 Lymph % (Auto) 14.3 % (20-40) L 02/03/23 06:12 Gillespie % (Auto) 7.6 % (2-11) 02/03/23 06:12 Eos % (Auto) 0.5 % (0-4) 02/03/23 06:12 Baso % (Auto) 0.5 % (0-2) 02/03/23 06:12 Lymph # (Auto) 0.9 X10*3/uL (1.2-4.9) L 02/03/23 06:12 Gillespie # (Auto) 0.5 X10*3/uL (0.1-1.2) 02/03/23 06:12 Eos # (Auto) 0.0 X10*3/uL (0.0-0.4) 02/03/23 06:12 Baso # (Auto) 0.0 X10*3/uL (0.0-0.2) 02/03/23 06:12 Abs Immat Gran (auto) 0.02 X10*3/uL (0.00-0.03) 02/03/23 06:12 Absolute Neuts (auto) 5.1 x10*3/uL (2.0-8.3) 02/03/23 06:12 Absolute Nucleated RBC 0.000 X10*3/uL (0.0-0.012) 02/03/23 06:12 Nucleated RBC % (auto) 0.0 /100WBC (0.0-0.2) 02/03/23 06:12 Sodium 141 mmol/L (135-145) 02/03/23 06:12 Potassium 3.5 mmol/L (3.3-5.1) 02/03/23 06:12 Chloride 98 mmol/L (96-108) 02/03/23 06:12 Carbon Dioxide 28 mmol/L (22-29) 02/03/23 06:12 Anion Gap 19 (12-20) 02/03/23 06:12 BUN 12 mg/dL (9-16) 02/03/23 06:12 Creatinine 0.72 mg/dL (0.5-1.4) 02/03/23 06:12 Estim Creat Clear Calc 70.0 02/03/23 06:12 Estimated GFR > 60 02/03/23 06:12 Random Glucose 86 mg/dL (60-115) 02/03/23 06:12 Fasting Glucose 90 mg/dL (60-99) 02/01/23 23:49 Calcium 9.5 mg/dL (8.4-10.2) 02/03/23 06:12 Total Bilirubin 0.4 mg/dL (0.0-1.0) 02/01/23 23:49 AST 27 U/L (5-31) 02/01/23 23:49 ALT 23 U/L (0-31) 02/01/23 23:49 Alkaline Phosphatase 298 U/L (39-117) H 02/01/23 23:49 Total Protein 7.0 g/dL (6.5-8.0) 02/01/23 23:49 Albumin 3.6 g/dL (3.5-5.0) 02/01/23 23:49 Lipase 13 U/L (8-78) 02/01/23 23:49 - Imaging Radiologist's impression: ITS Impressions Abdomen/Pelvis CT 02/02/23 13:19 IMPRESSION: Diffuse fluid-filled small bowel loops and oral contrast opacified colon with no transition point. There is mild mural thickening involving distal sigmoid colon and rectum with perirectal colic fat stranding suggestive of low-grade inflammatory process involving these organs. Mild presacral soft tissue thickening is seen as well. No free air or free fluid seen. Dilated CBD an expected finding post cholecystectomy. Calcified right adrenal mass. There is no significant change in the calcified adrenal mass compared to FDG study 10/09/2022. Fleischner guidelines were followed. Assessment and Plan Patient Active problem list reviewed?: Yes (1) Metastasis from cervical cancer Status: Acute Assessment and plan: This is an unfortunate 67 year old lady with a H/O Cervical Carcinoma, with metastases, was on narcotics due to pain. These were being tapered. She tells me right after that, started developing nausea, vomiting. She has had intractible abdominal pain. She also complains of pain all over her body. CT scan of the abdomen/pelvis from 02/02 revealed: Diffuse fluid-filled small bowel loops and oral contrast opacified colon with no transition point. There is mild mural thickening involving distal sigmoid colon and rectum with perirectal colic fat stranding suggestive of low-grade inflammatory process involving these organs. Mild presacral soft tissue thickening is seen as well. No free air or free fluid seen. Dilated CBD an expected finding post cholecystectomy. Calcified right adrenal mass. There is no significant change in the calcified adrenal mass compared to FDG study 10/09/2022. She was started on low dose Dialudid. PLAN: She would like to be switched over to her oral regimen. Will start her on 15 mg MS Contin at night. She can get 2.5 mg of oxycodone 3 times a day on a p.r.n. basis. I will monitor her response to the analgesic regimen. Can keep the IV Dilaudid for back up, for now. She has been restarted on gabapentin, Prednisone and Celexa as well. If GI complaints persist can request an evaluation from GI. Will follow. - Time Spent With Patient Time Spent with Patient (in minutes): 25
[2023-02-03] MEDS: Morphine Sulfate ER 15 MG TABLET.ER PO (19:55)
[2023-02-03] MEDS: oxyCODONE HCl Immed Release 5 MG TABLET 2.5 MG PO (19:55)
[2023-02-03] MEDS: Calcium Carbonate 750 MG TAB.CHEW PO (22:01)
[2023-02-03] MEDS: Famotidine 20 MG TABLET PO (22:02)
[2023-02-03] MEDS: Clotrimazole 1 % Vaginal Cream 45 GM TUBE 1 APPL VAGINAL (22:03)
[2023-02-04] VITALS (7 sets, daily range): BP systolic 118–158; BP diastolic 62–72; PULSE 65–75; RESP 16–20; TEMP 36–36.9; O2SAT 95–97; BMI 21.4
[2023-02-04] MEDS: HYDROmorphone HCl 1 MG/ML SYRINGE IVPUSH ×2 (02:54→08:25)
--- NOTE | 2023-02-04 04:48 | PC.NURSE ---
Pt seen at start of the shift alert and oriented, pt claimed some heartburn, mild nausea and cramping and generalized joint pain,,new pain management introduced and instructed, pt was agreeable, Oxycodone 2.5 mg po, and MS contin 15 mg po was given, also requested for Lorazepam po and prn given, after an hour, pt became increasingly anxious with multiple c/o intensified hearburn and burping, abdl cramps of 20/10, feeling of having loose diarrhea and generalized discomfort, COWS went from 3 to 7, Dr. Kidd was made aware, prn Dilaudid 1 mg IV given, Zofran Iv given, pt verbalized relief after few minutes, pt claimed all her symptoms were eased, Pepcid and Tums given and tolerated. Around 3 am, pt again noted with increasing anxiety , c/o nausea and abd pain, offered Oxycodone prn but refused, prn Dilaudid IV given, also offered phenergan supp for nausea but refused, pt was seen napping after.
[2023-02-04] MEDS: ondansetron HCL 4 MG/2 ML VIAL IVPUSH ×2 (08:25→20:09)
[2023-02-04] MEDS: 0.9 % Sodium Chloride Flush 3 ML SYRINGE IVFLUSH ×2 (08:26→15:47)
[2023-02-04] MEDS: 0.9 % Sodium Chloride 1,000 ML 100 ML IVCONT (09:54)
[2023-02-04] MEDS: LORazepam 1 MG TABLET PO (13:13)
[2023-02-04] MEDS: Calcium Carbonate 750 MG TAB.CHEW PO ×2 (13:13→22:22)
[2023-02-04] MEDS: oxyCODONE HCl Immed Release 5 MG TABLET 2.5 MG PO (14:00)
--- NOTE | 2023-02-04 14:35 | P.PNIM_ITS ---
Subjective Subjective Date of Service: 02/04/23 Interval History: Doing well with current regimen. No nausea tolerating diet. Review of Systems Denies chest pain Denies shortness of breath Denies nausea vomiting diarrhea Denies fever chills Physical Exam 2 Vital Signs: Vital Signs: Last Vital Signs Temp 96.8 F 02/04/23 07:35 Pulse 75 02/04/23 07:35 Resp 18 02/04/23 08:25 BP 150/67 H 02/04/23 07:35 Pulse Ox 96 02/04/23 07:35 O2 Del Method Room Air 02/04/23 07:35 BMI result Body Mass Index 21.4 Const: Other: Awake alert no acute distress Resp: Other: Clear to auscultation bilaterally no rales rhonchi or wheezes Cardio: Other: No S4; positive S1-S2; no S3 murmurs rubs or gallops GI: Other: Soft nontender nondistended normoactive bowel sounds Neuro: Other: Cranial nerves 2-12 grossly intact as tested. Motor is 5/5 all extremities. Sensation is intact. Cognition is appropriate Extrem: Other: No edema bilaterally Objective Data Active Medications Acetaminophen (Acetaminophen 325 Mg Tablet) 650 mg PO Q6H PRN PRN Reason: Pain, Mild (Pain Scale 1-3) Calcium Carbonate (Calcium Carbonate 750 Mg Tab.Chew) 750 mg PO Q6H PRN PRN Reason: Heartburn Last Admin: 02/04/23 13:13 Dose: 750 mg Documented By: CHAZ Clotrimazole (Clotrimazole 1 % Vaginal Cream 45 Gm Tube) 1 appl VAGINAL BEDTIME [facility] Stop: 02/09/23 20:59 Last Admin: 02/03/23 22:03 Dose: 1 appl Documented By: EFRAÍN Famotidine (Famotidine 20 Mg Tablet) 20 mg PO BEDTIME [facility] Last Admin: 02/03/23 22:02 Dose: 20 mg Documented By: EFRAÍN Heparin Sodium (Porcine) (Heparin Sodium,Porcine 5,000 Unit/Ml Vial) 5,000 unit SUBCUT Q12H [facility] Last Admin: 02/04/23 13:12 Dose: Not Given Documented By: CHAZ Non-Admin Reason: Patient Refused Hydromorphone HCl (Hydromorphone Hcl 1 Mg/Ml Syringe) 1 mg IVPUSH Q3H PRN; Protocol PRN Reason: Pain, Severe (Pain Scale 7-10) Last Admin: 02/04/23 08:25 Dose: 1 mg Documented By: CHAZ Loperamide HCl (Loperamide Hcl 2 Mg Capsule) 2 mg PO BID PRN PRN Reason: loose stool Lorazepam (Lorazepam 1 Mg Tablet) 1 mg PO BID PRN PRN Reason: anxiety Last Admin: 02/04/23 13:13 Dose: 1 mg Documented By: CHAZ Meclizine HCl (Meclizine Hcl 12.5 Mg Tablet) 12.5 mg PO DAILY PRN PRN Reason: dizziness Morphine Sulfate (Morphine Sulfate Er 15 Mg Tablet.Er) 15 mg PO BEDTIME [facility] Last Admin: 02/03/23 19:55 Dose: 15 mg Documented By: EFRAÍN Ondansetron HCl (Ondansetron Hcl 4 Mg/2 Ml Vial) 4 mg IVPUSH Q8H PRN PRN Reason: Nausea and Vomiting Last Admin: 02/04/23 08:25 Dose: 4 mg Documented By: CHAZ Oxycodone HCl (Oxycodone Hcl Immed Release 5 Mg Tablet) 2.5 mg PO Q8H PRN PRN Reason: Pain, Moderate(Pain Scale 4-6) Last Admin: 02/04/23 14:00 Dose: 2.5 mg Documented By: CHAZ Promethazine HCl (Promethazine Hcl 25 Mg Supp.Rect) 25 mg PA Q6H PRN PRN Reason: nausea and vomiting Last Admin: 02/03/23 16:14 Dose: 25 mg Documented By: STANISLAV Sodium Chloride (0.9 % Sodium Chloride Flush 3 Ml Syringe) [facility] Last Admin: 02/04/23 08:26 Dose: 3 ml Documented By: CHAZ Vitamin D (Cholecalciferol (Vitamin D3) 25 Mcg Tablet) 50 mcg PO DAILY [facility] Last Admin: 02/04/23 08:32 Dose: Not Given Documented By: CHAZ Non-Admin Reason: Patient Refused Labs 02/03/23 06:12 02/03/23 06:12 Assessment and Plan (1) Intractable nausea and vomiting: Status: Acute (2) Opiate withdrawal: Status: Acute Plan 67-year-old female with history of metastatic squamous cell carcinoma of cervix, renal mass, chronic pain syndrome, chronic anemia, opioid dependence, and rheumatoid arthritis admitted for intractable nausea and vomiting and uncontrolled pain r/t metastatic cervical cancer. 1.Intractable nausea/vomiting w-PCP weaning patient from high dose narcotics -Resume and optimize narcotic medications... Appreciate Dr. Cortez input -clear liquids -Continue IVF 2.Acute hypokalemia -2/2 to above -repleted in ED -Recheck lytes now, follow 3.Metastatic cervical cancer -as per Oncology 4.RA/chronic pain syndrome -Pain management as above -Resume PO as tolerated 5.Mood disorder -continue lorazepam -has not been taking sertraline in 3m due to above sx. Consider resuming at lower dose as tolerated DVT prophylaxis- heparin DNR/DNI Requiring ongoing hospitalization for adequate pain control necessitating IV analgesia Quality Stroke Does the patient have a stroke diagnosis?: No VTE Prior VTE?: No VTE Risk Level:: Medical - moderate - high VTE Device Contraindication: Treatment Not Indicated VTE Drug Contraindication: N/A - Med Ordered
[2023-02-04] MEDS: HYDROmorphone HCl 0.5 MG/0.5 ML SYRINGE IVPUSH ×2 (15:46→22:14)
[2023-02-04] MEDS: Famotidine 20 MG TABLET PO (20:13)
[2023-02-04] MEDS: Morphine Sulfate ER 15 MG TABLET.ER PO (20:13)
[2023-02-04] MEDS: Clotrimazole 1 % Vaginal Cream 45 GM TUBE 1 APPL VAGINAL (22:24)
[2023-02-05] MEDS: Heparin Sodium,Porcine 5,000 UNIT/ML VIAL 5000 UNIT SUBCUT (01:00)
[2023-02-05 04:00] VITALS: BP 112/62; PULSE 66; RESP 18; TEMP 36.3; O2SAT 94
[2023-02-05 07:19] VITALS: BP 159/66; PULSE 66; RESP 16; TEMP 36.1; O2SAT 96
[2023-02-05 08:00] VITALS: PULSE 61
[2023-02-05 08:08] VITALS: RESP 18
[2023-02-05] MEDS: 0.9 % Sodium Chloride Flush 3 ML SYRINGE IVFLUSH ×2 (08:08→18:40)
[2023-02-05] MEDS: HYDROmorphone HCl 0.5 MG/0.5 ML SYRINGE IVPUSH ×3 (08:08→20:24)
[2023-02-05] MEDS: ondansetron HCL 4 MG/2 ML VIAL IVPUSH ×2 (08:08→20:24)
[2023-02-05] MEDS: Cholecalciferol (Vitamin D3) 25 MCG TABLET 50 MCG PO (08:09)
--- NOTE | 2023-02-05 08:36 | PM.EVENT ---
Pt with metastatic cervical cancer who stopped treatment after 2 cycles of chemo/immunotherapy after which she had an excellent response. She was recommended on going immunotherapy to keep the disease under control which she declined. She has problems with narcotic dependence and drug addiction. She now prsents with nausea and emesis along with ongoing complaints of pain. CT abdomen without contrast shows dilated bowel loops and mural thickening of distal sigmoid. Etiology has not been established, infectious, inflammatory, malignancy related or opioid induced paresis? Recommend CT with contrast and GI consultation. Thanks.
[2023-02-05] MEDS: LORazepam 1 MG TABLET PO (13:03)
[2023-02-05 15:05] VITALS: BP 101/64; PULSE 71; RESP 18; TEMP 37.1; O2SAT 94
--- NOTE | 2023-02-05 15:26 | PM.EVENT ---
Event Note Date of Service: 02/05/23 Event Note: GI consult dictated N/V abnormal ct of colon Repeat ct is pending continue to treat sx of n/v outpatient colonoscopy can be scheduled with n/v is improved. Time Spent With Patient Time: Total time managing care of this patient today ____ minutes.
--- NOTE | 2023-02-05 16:27 | HO.PM.IMPN ---
Subjective Subjective Date of Service: 02/05/23 Interval History: persistent nausea/vomiting Review of Systems says tolerate some diet today and nausea slightly improving has vomiting episode -? Physical Exam Vital Signs: Vital Signs: Last Vital Signs Temp 98.7 F 02/05/23 15:05 Pulse 71 02/05/23 15:05 Resp 18 02/05/23 15:05 BP 101/64 02/05/23 15:05 Pulse Ox 94 02/05/23 15:05 O2 Del Method Room Air 02/05/23 15:05 BMI result Body Mass Index 21.4 Appearance: Alert.? Oriented X3. cvs: rrr, [id number] , no murmur res: clear to auscultation ,no rhonchii or wheezing abd: no rebound or guarding ,nt, bs present. ext pulses present , no cyanosis neuro: nonfocal Objective Data Active Medications Acetaminophen (Acetaminophen 325 Mg Tablet) 650 mg PO Q6H PRN PRN Reason: Pain, Mild (Pain Scale 1-3) Calcium Carbonate (Calcium Carbonate 750 Mg Tab.Chew) 750 mg PO Q6H PRN PRN Reason: Heartburn Last Admin: 02/04/23 22:22 Dose: 750 mg Documented By: EFRAÍN Clotrimazole (Clotrimazole 1 % Vaginal Cream 45 Gm Tube) 1 appl VAGINAL BEDTIME [facility] Stop: 02/09/23 20:59 Last Admin: 02/04/23 22:24 Dose: 1 appl Documented By: EFRAÍN Famotidine (Famotidine 20 Mg Tablet) 20 mg PO BEDTIME [facility] Last Admin: 02/04/23 20:13 Dose: 20 mg Documented By: EFRAÍN Heparin Sodium (Porcine) (Heparin Sodium,Porcine 5,000 Unit/Ml Vial) 5,000 unit SUBCUT Q12H [facility] Last Admin: 02/05/23 13:02 Dose: Not Given Documented By: CHAZ Non-Admin Reason: Patient Refused Hydromorphone HCl (Hydromorphone Hcl 0.5 Mg/0.5 Ml Syringe) 0.5 mg IVPUSH Q6H PRN; Protocol PRN Reason: Pain, Severe (Pain Scale 7-10) Last Admin: 02/05/23 14:39 Dose: 0.5 mg Documented By: CHAZ Loperamide HCl (Loperamide Hcl 2 Mg Capsule) 2 mg PO BID PRN PRN Reason: loose stool Lorazepam (Lorazepam 1 Mg Tablet) 1 mg PO BID PRN PRN Reason: anxiety Last Admin: 02/05/23 13:03 Dose: 1 mg Documented By: CHAZ Meclizine HCl (Meclizine Hcl 12.5 Mg Tablet) 12.5 mg PO DAILY PRN PRN Reason: dizziness Morphine Sulfate (Morphine Sulfate Er 15 Mg Tablet.Er) 15 mg PO BEDTIME [facility] Last Admin: 02/04/23 20:13 Dose: 15 mg Documented By: EFRAÍN Ondansetron HCl (Ondansetron Hcl 4 Mg/2 Ml Vial) 4 mg IVPUSH Q8H PRN PRN Reason: Nausea and Vomiting Last Admin: 02/05/23 08:08 Dose: 4 mg Documented By: CHAZ Oxycodone HCl (Oxycodone Hcl Immed Release 5 Mg Tablet) 2.5 mg PO Q8H PRN PRN Reason: Pain, Moderate(Pain Scale 4-6) Last Admin: 02/04/23 14:00 Dose: 2.5 mg Documented By: CHAZ Promethazine HCl (Promethazine Hcl 25 Mg Supp.Rect) 25 mg IA Q6H PRN PRN Reason: nausea and vomiting Last Admin: 02/05/23 13:03 Dose: 25 mg Documented By: CHAZ Sodium Chloride (0.9 % Sodium Chloride Flush 3 Ml Syringe) 3 ml IVFLUSH QSHIFT [facility] Last Admin: 02/05/23 08:08 Dose: 3 ml Documented By: CHAZ Vitamin D (Cholecalciferol (Vitamin D3) 25 Mcg Tablet) 50 mcg PO DAILY [facility] Last Admin: 02/05/23 08:09 Dose: 50 mcg Documented By: CHAZ Labs 02/03/23 06:12 02/03/23 06:12 Assessment and Plan (1) Intractable nausea and vomiting: Status: Acute Plan 67-year-old female with history of metastatic squamous cell carcinoma of cervix, renal mass, chronic pain syndrome, chronic anemia, opioid dependence, and rheumatoid arthritis admitted for intractable nausea and vomiting and uncontrolled pain r/t metastatic cervical cancer. 1.Intractable nausea/vomiting w-PCP weaning patient from high dose narcotics -clear liquids,Continue IVF. ct abd from today noted -ct abd-?Ielus vs psbo vs entritis she said she passed 3-4 bm yesterday,one liquidy bm this morning abd pain also improving Dr palm saw patient yesterday-oxycodone and morphine adjusted ,also on iv dilaudid prn,continue antiemtics keep npo ,added iv hydration added surgery eval- due to persistent n/v,abnormal ct abd. 2.Acute hypokalemia -2/2 to above -repleted in ED -Recheck alireza now, follow 3.Metastatic cervical cancer -as per Oncology 4.RA/chronic pain syndrome -Pain management as above -Resume PO as tolerated 5.Mood disorder -continue lorazepam -has not been taking sertraline in 3m due to above sx. Consider resuming at lower dose as tolerated DVT prophylaxis- heparin DNR/DNI ongoing hospitalization for adequate pain control necessitating IV analgesia Quality Stroke Does the patient have a stroke diagnosis?: No VTE Prior VTE?: No VTE Risk Level:: Medical - moderate - high VTE Device Contraindication: Treatment Not Indicated VTE Drug Contraindication: N/A - Med Ordered
--- NOTE | 2023-02-05 16:52 | CONS_ITS ---
DATE OF SERVICE: 02/05/2023 REFERRING PHYSICIAN: Dr. Ortiz REASON FOR CONSULTATION: Nausea, vomiting, and abdominal pain. HISTORY OF PRESENT ILLNESS: The patient is a pleasant 67-year-old woman, who was admitted to the hospital on February 01 after presenting to the emergency room with complaints of nausea and vomiting. She has a history of opiate dependence and had been tapering pain medications, and developed nausea and vomiting. She was seen in the emergency department on January 31 and given Phenergan suppositories, but had persistent nausea and vomiting and came back to the emergency department where she was admitted to the hospital. As part of reevaluation, CT scanning was obtained, which was reviewed. This was interpreted as showing mild mural thickening involving the distal sigmoid colon and rectum with perirectal colonic fat stranding, suggestive of low-grade inflammatory process. Previous CT scanning in November was also evaluated and interpreted as showing rectosigmoid thickening. She has no complaints of rectal bleeding or change in her bowel habits. There has been no hematemesis or melena. She is unsure when her last colonoscopy was. PAST MEDICAL HISTORY: 1. Metastatic squamous cell carcinoma of the cervix. 2. Renal mass. 3. Chronic pain syndrome, lower extremities. 4. Anxiety/depression. 5. Osteoporosis. 6. History of opioid abuse. 7. Osteoarthritis. 8. Rheumatoid arthritis. 9. Back pain. CURRENT MEDICATIONS: Her current medication list is reviewed in the chart. ALLERGIES: BUPRENORPHINE. FAMILY HISTORY: This is reviewed with the patient and is noncontributory. SOCIAL HISTORY: There is no current tobacco or substance abuse. REVIEW OF SYSTEMS: SKIN: No pruritus. HEENT: Negative. CARDIOPULMONARY: No shortness of breath or chest pain. GASTROINTESTINAL: As above. GENITOURINARY: Negative. NEUROPSYCHIATRIC: Negative. PHYSICAL EXAMINATION: GENERAL: Shows a pleasant female, lying comfortably in bed. VITAL SIGNS: Reviewed in electronic medical record and are stable. SKIN: Anicteric. HEENT: Shows no scleral icterus. NECK: Without lymphadenopathy or thyromegaly. LUNGS: Clear. HEART: Shows a regular rate and rhythm. S1, S2. No murmur. ABDOMEN: Soft without focal mass or tenderness. Bowel sounds are present. No organomegaly is noted. EXTREMITIES: Without edema. DIAGNOSTIC DATA: Laboratory data and CT scanning are reviewed. IMPRESSION: Nausea and vomiting with abnormal CT scan. Her CT scan changes appear to be somewhat chronic and are rather asymptomatic, suggesting this is not a significant inflammatory process. I did discuss colonoscopy with her, which she declines at this time until her nausea and vomiting improves. This can be done electively as an outpatient for further evaluation. I agree with treating her with antiemetics and pain medications as you are doing. Thanks for asking me to see her. I will follow her in the hospital with you. MD DIRK Sandhu/AVELINO / [phone]
[2023-02-05] MEDS: Piperacillin Sodium/Tazobactam 3.375 GM in 0.9 % Sodium Chloride 50 ML IV (18:40)
[2023-02-05 19:16] VITALS: BP 113/65; PULSE 80; RESP 17; TEMP 36.4; O2SAT 92
[2023-02-05] MEDS: Dextrose 5 % and 0.9 % NaCl 1,000 ML 80 ML IVCONT (19:27)
[2023-02-05] MEDS: bisacodyL 10 MG SUPP.RECT PR (20:25)
[2023-02-05] MEDS: Morphine Sulfate ER 15 MG TABLET.ER PO (21:02)
[2023-02-05] MEDS: Docusate Sodium 100 MG CAPSULE PO (21:02)
[2023-02-05] MEDS: Famotidine 20 MG TABLET PO (21:03)
--- NOTE | 2023-02-05 21:08 | PM.CNGS ---
History of Present Illness Consult details Consult date: 02/05/23 Reason for consult: other Requesting physician: Onel Ortiz Narrative: THE PATIENT IS A 67-YEAR-OLD FEMALE WHO has been having significant nausea and vomiting for weeks now. She says she has lost 80 lb over the last several months but then recently started to gain some weight back. Her past history which is significant is consistent for diagnosis of cervical cancer in 2017 for which she underwent some kind of the surgical procedure and then wonder went chemo and radiation therapy. 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 This was biopsy proven. She was treated with more chemo but was not doing well and then she says was taken off all meds and told that she would be going on hospice. However further workup with blood work revealed everything looked good and a repeat PET scan or CT scan showed that the adrenal tumor was significantly smaller in that she was doing better. In the past after her diagnosis and treatment she was feeling very weak and had a lot of pain in her lower extremities and bones. She was severely diagnosed with osteoporosis. She was taken oxycodone and some p.o. morphine to help with her pain issues. She says her primary care doctor then wanted to wean her off her narcotics and put her on tramadol and since this is been going on she has been having worsening nausea not feeling. She thinks that with her diagnosis and her prognosis that being on comfortable pain medication should be a priority. She denies any substance abuse issues. She has been in an out recently to the emergency room with abdominal pain and nausea vomiting and [address] scans did not reveal anything significant. She has some distended small bowel loops but nothing that looks like a transition point and some thickening of her rectosigmoid area is consistent with imaging in the past. This may have been due to her local radiation therapy. Unfortunately she still has persistent nausea and vomiting and has been throwing up bilious material. We have been asked to see her to rule out obstruction. CT scan shows oral contrast that has been in her: For the last several days. Not entirely sure when that oral contrast was ingested but there does not appear to be any evidence that the oral contrast got stuck in the small bowel but that it has progressed through to the colon most likely not consistent with an obstruction. Also was determined that yesterday she had multiple loose stools and was a concern for even C diff. Today raymonight patient had been drinking a little bit of some liquids but just recently had another 500 cc of bilious emesis Review of Systems Review of Systems: Yes all other systems are reviewed and are negative [facility] Past Medical History Medical History (Updated 02/02/23 @ 18:29 by Tashi Cortez MD) Squamous cell carcinoma of cervix Complex regional pain syndrome i of lower limb, bilateral Anxiety with depression Chronic pain syndrome Osteoporosis Cervical cancer Opiate abuse, episodic Osteoarthritis of both knees Primary osteoarthritis of knees, bilateral Seropositive rheumatoid arthritis Back pain Functional capacity: uses cane/walker Family History Family History Father Acute CVA (cerebrovascular accident) Mother Hypertension Hypercholesterolemia Brother Liver transplant status Family history of thyroid problem Surgical History Surgical History History of D&C History of tonsillectomy History of appendectomy History of cholecystectomy Social History Social History Household Members: Children Housing: House Are you a primary critical care unit manager to a significant other at home: Yes (mom) Do you presently have visiting nurse or other home services: Yes Alcohol intake: never Patient Tobacco Use Status: Former Tobacco user Quit Date: 2016 Tobacco use type: Cigarette e-Cigarette/Vaping Use: Never Used Second Hand Smoke Exposure: No service: No 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 Cognitive needs: No Hearing needs: No Vision needs: No Meds Allergies Allergy/AdvReac Type Severity Reaction Status Date / Time buprenorphine [Belbuca] Allergy Intermediate Anaphylaxis Verified 01/31/23 17:48 Active Medications: Current Medications Acetaminophen (Acetaminophen 325 Mg Tablet) 650 mg PO Q6H PRN PRN Reason: Pain, Mild (Pain Scale 1-3) Bisacodyl (Bisacodyl 10 Mg Supp.Rect) 10 mg OK BEDTIME [facility] Last Admin: 02/05/23 20:25 Dose: 10 mg Calcium Carbonate (Calcium Carbonate 750 Mg Tab.Chew) 750 mg PO Q6H PRN PRN Reason: Heartburn Last Admin: 02/04/23 22:22 Dose: 750 mg Clotrimazole (Clotrimazole 1 % Vaginal Cream 45 Gm Tube) 1 appl VAGINAL BEDTIME [facility] Stop: 02/09/23 20:59 Last Admin: 02/04/23 22:24 Dose: 1 appl Docusate Sodium (Docusate Sodium 100 Mg Capsule) 100 mg PO BEDTIME [facility] Famotidine (Famotidine 20 Mg Tablet) 20 mg PO BEDTIME [facility] Last Admin: 02/04/23 20:13 Dose: 20 mg Heparin Sodium (Porcine) (Heparin Sodium,Porcine 5,000 Unit/Ml Vial) 5,000 unit SUBCUT Q12H [facility] Last Admin: 02/05/23 13:02 Dose: Not Given Hydromorphone HCl (Hydromorphone Hcl 0.5 Mg/0.5 Ml Syringe) 0.5 mg IVPUSH Q6H PRN; Protocol PRN Reason: Pain, Severe (Pain Scale 7-10) Last Admin: 02/05/23 20:24 Dose: 0.5 mg Dextrose/Sodium Chloride (D5ns) 1,000 mls @ 80 mls/hr IVCONT .[id number] [facility] Last Admin: 02/05/23 19:27 Dose: 80 mls/hr Piperacillin Sod/Tazobactam (Sod 3.375 gm/ Sodium Chloride) 50 mls @ 100 mls/hr IV Q6H [facility] Last Infusion: 02/05/23 19:27 Dose: Infused Loperamide HCl (Loperamide Hcl 2 Mg Capsule) 2 mg PO BID PRN PRN Reason: loose stool Lorazepam (Lorazepam 1 Mg Tablet) 1 mg PO BID PRN PRN Reason: anxiety Last Admin: 02/05/23 13:03 Dose: 1 mg Meclizine HCl (Meclizine Hcl 12.5 Mg Tablet) 12.5 mg PO DAILY PRN PRN Reason: dizziness Morphine Sulfate (Morphine Sulfate Er 15 Mg Tablet.Er) 15 mg PO BEDTIME [facility] Last Admin: 02/04/23 20:13 Dose: 15 mg Ondansetron HCl (Ondansetron Hcl 4 Mg/2 Ml Vial) 4 mg IVPUSH Q8H PRN PRN Reason: Nausea and Vomiting Last Admin: 02/05/23 20:24 Dose: 4 mg Oxycodone HCl (Oxycodone Hcl Immed Release 5 Mg Tablet) 2.5 mg PO Q8H PRN PRN Reason: Pain, Moderate(Pain Scale 4-6) Last Admin: 02/04/23 14:00 Dose: 2.5 mg Promethazine HCl (Promethazine Hcl 25 Mg Supp.Rect) 25 mg OK Q6H PRN PRN Reason: nausea and vomiting Last Admin: 02/05/23 13:03 Dose: 25 mg Sodium Chloride (0.9 % Sodium Chloride Flush 3 Ml Syringe) 3 ml IVFLUSH QSHIFT [facility] Last Admin: 02/05/23 18:40 Dose: 3 ml Vitamin D (Cholecalciferol (Vitamin D3) 25 Mcg Tablet) 50 mcg PO DAILY [facility] Last Admin: 02/05/23 08:09 Dose: 50 mcg Home Medications Medication Instructions Recorded Confirmed Last Taken Type alendronate 70 mg tablet 70 mg PO QWEEK 02/02/23 Unknown History celecoxib 200 mg capsule 200 mg PO BID PRN pain 02/02/23 Unknown History cholecalciferol (vitamin D3) 50 50 mcg PO DAILY 02/02/23 Unknown History mcg (2,000 unit) capsule (Vitamin D3) ferrous sulfate 325 mg (65 mg 325 mg PO BID 02/02/23 Unknown History iron) tablet gabapentin 600 mg tablet 600 mg PO DAILY 02/02/23 Unknown History lorazepam 1 mg tablet 1 - 2 mg PO BID PRN anxiety 02/02/23 02/02/23 Unknown History morphine 15 mg tablet,extended 15 mg PO DAILY 02/02/23 02/02/23 Unknown History release omeprazole 20 mg capsule,delayed 20 mg PO DAILY@0630 02/02/23 Unknown History release oxycodone 5 mg tablet 2.5 mg PO DAILY PRN Pain (Scale 02/02/23 02/02/23 Unknown History Score 4-6) oxycodone 5 mg tablet 5 mg PO TID@1200,1600,2100 PRN pain 02/02/23 02/02/23 Unknown History prednisone 5 mg tablet 5 mg PO BID 02/02/23 Unknown History sertraline 50 mg tablet 75 mg PO DAILY 02/02/23 Unknown History Physical Exam Vital Signs: Vital Signs: Last Vital Signs Temp 97.6 F 02/05/23 19:16 Pulse 80 02/05/23 19:16 Resp 17 02/05/23 19:16 BP 113/65 02/05/23 19:16 Pulse Ox 92 02/05/23 19:16 O2 Del Method Room Air 02/05/23 19:16 BMI result Body Mass Index 21.4 Const: General: cooperative, alert, awake, in distress mild and tired appearing Nutritional Appearance: malnourished and thin Orientation/consciousness: patient oriented x3 HEENT: Other: Nonicteric Resp: Effort & Inspection: normal respiratory effort Auscultation: clear to auscultation bilaterally Cardio: Rate: regular rate Rhythm: regular rhythm GI: Other: Abdomen is flat soft nondistended nontender hypo bowel sounds no palpable masses noted no hernias Skin: Other: Nonicteric Neuro: General: patient oriented x3 Psych: Appearance: grossly normal Mental Status: mental status grossly normal Speech and movement: Normal speech and movement present Affect: Sad affect present Attitude: cooperative Thought process: Normal thought process present Thought content: Normal thought content present Insight: Good insight present (Psych) Judgement: Good judgement present (Psych) Results Labs 02/03/23 06:12 02/03/23 06:12 Labs: All other labs normal. Imaging Abdominal x-ray: report reviewed and image reviewed Abdomen CT scan report/results: report reviewed and image reviewed CT scan - pelvis: report reviewed and image reviewed Assessment and Plan (1) Intractable nausea and vomiting: Status: Acute Plan 67-year-old female with intractable nausea vomiting uncertain etiology. She has diagnosis of metastatic cervical cancer to the adrenal glands but has been treated for this with chemotherapy. I think her prognosis overall is poor from this. CT scan does not reveal a significant transition point or reason for mechanical obstruction and clinically does not seem like she has that. Question whether this may be secondary to slow transit or maybe even carcinomatosis in the peritoneal cavity in on the bowel. At this point will make her NPO issues still barely drinking but vomiting a lot of fluid which is bilious. Check her electrolytes and check her KUB. Apparently she has had p.o. contrast going through her system and so there isn't any evidence of obstruction. Question carrying out gastric emptying study and will try 24 hours of Reglan and see how this works for her. She understands and agrees with above plan. I do not think there is any surgical intervention needs to be carried out at this point in time. GI has also been seeing the patient Procedures Date of Service Date of Service: 02/05/23
[2023-02-05] MEDS: Metoclopramide HCl 10 MG/2 ML VIAL IVPUSH (21:31)
[2023-02-05] MEDS: Clotrimazole 1 % Vaginal Cream 45 GM TUBE 1 APPL VAGINAL (21:33)
[2023-02-06] MEDS: Piperacillin Sodium/Tazobactam 3.375 GM in 0.9 % Sodium Chloride 50 ML IV ×4 (00:03→18:08)
[2023-02-06] MEDS: HYDROmorphone HCl 0.5 MG/0.5 ML SYRINGE IVPUSH ×4 (02:26→18:41)
[2023-02-06] MEDS: Metoclopramide HCl 10 MG/2 ML VIAL IVPUSH ×4 (03:00→20:30)
[2023-02-06 04:00] VITALS: BP 115/64; PULSE 66; RESP 18; TEMP 36.4; O2SAT 96
[2023-02-06] MEDS: oxyCODONE HCl Immed Release 5 MG TABLET 2.5 MG PO ×2 (05:06→15:43)
[2023-02-06] MEDS: LORazepam 1 MG TABLET PO ×2 (05:07→16:20)
[2023-02-06] MEDS: ondansetron HCL 4 MG/2 ML VIAL IVPUSH ×2 (06:12→12:51)
[2023-02-06] MEDS: Dextrose 5 % and 0.9 % NaCl 1,000 ML 80 ML IVCONT (06:16)
[2023-02-06 07:32] VITALS: BP 122/70; PULSE 65; RESP 16; TEMP 36.2; O2SAT 96
[2023-02-06 09:01] LABS: Hematocrit 32.6 % (37.0-47.0); Hemoglobin 10.5 g/dl (12.0-16.0); Mean Corpuscular HGB Conc 32.2 g/dl (31.0-35.0); Mean Corpuscular Hemoglobin 26.6 pg (27.0-33.0); Mean Corpuscular Volume 82.7 fL (80.0-98.0); Mean Platelet Volume 9.3 fL (9.4-12.3); Platelet Count 306 X10*3/uL (160-400); Red Blood Count 3.94 X10*6/uL (4.20-5.50); Red Cell Distribution Width 14.3 % (11.0-16.0); White Blood Count 5.4 X10*3/uL (4.8-10.8)
[2023-02-06 09:21] LABS: Blood Urea Nitrogen 9 mg/dL (9-16); Calcium 8.4 mg/dL (8.4-10.2); Estimated Glomerular Filt Rate > 60; Glucose Random 129 mg/dL (60-115)
[2023-02-06 09:33] LABS: Anion Gap 10 (12-20); Carbon Dioxide 28 mmol/L (22-29); Chloride 102 mmol/L (96-108); Potassium 2.3 mmol/L (3.3-5.1); Sodium 138 mmol/L (135-145)
[2023-02-06] MEDS: Potassium Chloride/H20 10 MEQ/100 ML PIGGYBACK 100 MEQ IV ×6 (10:21→22:29)
--- NOTE | 2023-02-06 10:58 | MHC.CM.PN ---
Per MD rounds, no discharge today. Nausea+ vomitting continues CT of AB Partial illeus. Med changes (antiemetic) and a KUB have been ordered. DP home with resumption of [facility]. Patient dtr will provide transport home.
[2023-02-06] MEDS: Heparin Sodium,Porcine 5,000 UNIT/ML VIAL 5000 UNIT SUBCUT (11:51)
--- NOTE | 2023-02-06 11:51 | MHC.CLN ---
F/U CURRENTLY NPO DUE TO NAUSEA/VOMITING. RECENT POOR PO NOTED. WEIGHT STABLE X 3 AND 6 MONTHS. WEIGHT LOSS NOT SIGNIFICANT X ONE YEAR. REPORTS THAT LOST 80# WITH CHEMO. SUSPECT THAT TIMEFRAME IS GREATER THAN ONE YEAR. FOLLOW FOR DIET ADVANCEMENT AND TOLERANCE.
--- NOTE | 2023-02-06 12:15 | PM.PNGS ---
Subjective Subjective Date of Service: 02/07/23 Interval history: history reviewed patient says that she still continues to have nausea and vomiting says she is passing stools Physical Exam Vital Signs: Vital Signs: Last Vital Signs Temp 97.1 F 02/06/23 07:32 Pulse 65 02/06/23 07:32 Resp 16 02/06/23 07:32 BP 122/70 02/06/23 07:32 Pulse Ox 96 02/06/23 07:32 O2 Del Method Room Air 02/06/23 07:32 BMI result Body Mass Index 21.4 Const: General: comfortable and no acute distress Resp: Effort & Inspection: normal respiratory effort Cardio: Rate: regular rate GI: Inspection: No distended Palpation (GI): Soft to palpation, not firm, nontender and no guarding Objective Data Active Medications Acetaminophen (Acetaminophen 325 Mg Tablet) 650 mg PO Q6H PRN PRN Reason: Pain, Mild (Pain Scale 1-3) Calcium Carbonate (Calcium Carbonate 750 Mg Tab.Chew) 750 mg PO Q6H PRN PRN Reason: Heartburn Last Admin: 02/04/23 22:22 Dose: 750 mg Documented By: EFRAÍN Clotrimazole (Clotrimazole 1 % Vaginal Cream 45 Gm Tube) 1 appl VAGINAL BEDTIME [facility] Stop: 02/09/23 20:59 Last Admin: 02/05/23 21:33 Dose: 1 appl Documented By: KEVIN Famotidine (Famotidine 20 Mg Tablet) 20 mg PO BEDTIME [facility] Last Admin: 02/05/23 21:03 Dose: 20 mg Documented By: KEVIN Heparin Sodium (Porcine) (Heparin Sodium,Porcine 5,000 Unit/Ml Vial) 5,000 unit SUBCUT Q12H [facility] Last Admin: 02/06/23 11:51 Dose: 5,000 unit Documented By: DOT Hydromorphone HCl (Hydromorphone Hcl 0.5 Mg/0.5 Ml Syringe) 0.5 mg IVPUSH Q6H PRN; Protocol PRN Reason: Pain, Severe (Pain Scale 7-10) Last Admin: 02/06/23 02:26 Dose: 0.5 mg Documented By: KEVIN Dextrose/Sodium Chloride (D5ns) 1,000 mls @ 80 mls/hr IVCONT .[id number] [facility] Last Admin: 02/06/23 06:16 Dose: 80 mls/hr Documented By: KEVIN Piperacillin Sod/Tazobactam (Sod 3.375 gm/ Sodium Chloride) 50 mls @ 100 mls/hr IV Q6H [facility] Last Admin: 02/06/23 11:50 Dose: 100 mls/hr Documented By: DOT Promethazine HCl 6.25 mg/ (Sodium Chloride) 50.25 mls @ 201 mls/hr IV Q4H PRN PRN Reason: Nausea and Vomiting Potassium Chloride (Potassium Chloride/H20) 10 meq in 100 mls @ 100 mls/hr IV Q1H [facility] Stop: 02/06/23 13:44 Last Infusion: 02/06/23 11:51 Dose: Infused Documented By: DOT Loperamide HCl (Loperamide Hcl 2 Mg Capsule) 2 mg PO BID PRN PRN Reason: loose stool Lorazepam (Lorazepam 1 Mg Tablet) 1 mg PO BID PRN PRN Reason: anxiety Last Admin: 02/06/23 05:07 Dose: 1 mg Documented By: KEVIN Meclizine HCl (Meclizine Hcl 12.5 Mg Tablet) 12.5 mg PO DAILY PRN PRN Reason: dizziness Metoclopramide HCl (Metoclopramide Hcl 10 Mg/2 Ml Vial) 10 mg IVPUSH Q6H [facility] Last Admin: 02/06/23 08:50 Dose: 10 mg Documented By: DOT Morphine Sulfate (Morphine Sulfate Er 15 Mg Tablet.Er) 15 mg PO BEDTIME [facility] Last Admin: 02/05/23 21:02 Dose: 15 mg Documented By: KEVIN Ondansetron HCl (Ondansetron Hcl 4 Mg/2 Ml Vial) 4 mg IVPUSH Q8H PRN PRN Reason: Nausea and Vomiting Last Admin: 02/06/23 06:12 Dose: 4 mg Documented By: KEVIN Oxycodone HCl (Oxycodone Hcl Immed Release 5 Mg Tablet) 2.5 mg PO Q8H PRN PRN Reason: Pain, Moderate(Pain Scale 4-6) Last Admin: 02/06/23 05:06 Dose: 2.5 mg Documented By: KEVIN Sodium Chloride (0.9 % Sodium Chloride Flush 3 Ml Syringe) 3 ml IVFLUSH QSHIFT [facility] Last Admin: 02/06/23 08:50 Dose: Not Given Documented By: DOT Non-Admin Reason: IV Running Vitamin D (Cholecalciferol (Vitamin D3) 25 Mcg Tablet) 50 mcg PO DAILY [facility] Last Admin: 02/06/23 08:52 Dose: Not Given Documented By: DOT Non-Admin Reason: Patient Refused Labs 02/06/23 08:47 02/07/23 10:39 Labs: Laboratory Results - last 24 hr 02/06/23 08:47 MCV 82.7 MCH 26.6 L MCHC 32.2 RDW 14.3 Plt Count 306 MPV 9.3 L Absolute Nucleated RBC 0.000 Nucleated RBC % (auto) 0.0 Anion Gap 10 L Estim Creat Clear Calc 87.0 Estimated GFR > 60 Random Glucose 129 H Calcium 8.4 D Procedures Date of Service Date of Service: 02/07/23 Progress Note: A&P Assessment and plan (1) Intractable nausea and vomiting: Status: Acute Assessment and Plan: I have reviewed her CAT scan,KUB - no obvious transition point seen but she does have some small bowel loops that appear distended clinically, she has have very benign exam we can proceed with a small-bowel series to rule out any obstruction she does state that symptoms have been ongoing for 3-4 months after her doctor had tapered off her oxycodone follow lytes correct imbalance Time Spent With Patient Time: Total time managing care of this patient today ____ minutes. Quality Stroke Does the patient have a stroke diagnosis?: No VTE Prior VTE?: No VTE Risk Level:: Medical - moderate - high VTE Device Contraindication: Treatment Not Indicated VTE Drug Contraindication: N/A - Med Ordered
[2023-02-06 12:45] LABS: Magnesium 1.5 mg/dL (1.6-2.6)
--- NOTE | 2023-02-06 13:12 | HO.PM.IMPN ---
Subjective Subjective Date of Service: 02/06/23 Interval History: Persistent nausea vomiting Complaining of diarrhea also since yesterday Review of Systems Denies any fever. Keep insisting to increase her pain medications. Otherwise talking comfortably she also says that she had BM liquidy this morning. As per the staff-she had 1 vomiting episode overnight(with patient seems to complain a lot of nausea vomiting, asking for more oxycodone and pain meds) Physical Exam Vital Signs: Vital Signs: Last Vital Signs Temp 97.1 F 02/06/23 07:32 Pulse 65 02/06/23 07:32 Resp 16 02/06/23 07:32 BP 122/70 02/06/23 07:32 Pulse Ox 96 02/06/23 07:32 O2 Del Method Room Air 02/06/23 07:32 BMI result Body Mass Index 21.4 Appearance: Alert.? Oriented X3.sitting ,no in distress cvs: [id number], [id number] , no murmur res: clear to auscultation ,no rhonchii or wheezing abd: no rebound or guarding ,some nonspecific discomfort , bs present. ext pulses present , no cyanosis neuro: nonfocal Objective Data Active Medications Acetaminophen (Acetaminophen 325 Mg Tablet) 650 mg PO Q6H PRN PRN Reason: Pain, Mild (Pain Scale 1-3) Calcium Carbonate (Calcium Carbonate 750 Mg Tab.Chew) 750 mg PO Q6H PRN PRN Reason: Heartburn Last Admin: 02/04/23 22:22 Dose: 750 mg Documented By: EFRAÍN Clotrimazole (Clotrimazole 1 % Vaginal Cream 45 Gm Tube) 1 appl VAGINAL BEDTIME [facility] Stop: 02/09/23 20:59 Last Admin: 02/05/23 21:33 Dose: 1 appl Documented By: KEVIN Famotidine (Famotidine 20 Mg Tablet) 20 mg PO BEDTIME [facility] Last Admin: 02/05/23 21:03 Dose: 20 mg Documented By: KEVIN Heparin Sodium (Porcine) (Heparin Sodium,Porcine 5,000 Unit/Ml Vial) 5,000 unit SUBCUT Q12H [facility] Last Admin: 02/06/23 11:51 Dose: 5,000 unit Documented By: DOT Hydromorphone HCl (Hydromorphone Hcl 0.5 Mg/0.5 Ml Syringe) 0.5 mg IVPUSH Q6H PRN; Protocol PRN Reason: Pain, Severe (Pain Scale 7-10) Last Admin: 02/06/23 12:45 Dose: 0.5 mg Documented By: DOT Dextrose/Sodium Chloride (D5ns) 1,000 mls @ 80 mls/hr IVCONT .[id number] [facility] Last Admin: 02/06/23 06:16 Dose: 80 mls/hr Documented By: KEVIN Piperacillin Sod/Tazobactam (Sod 3.375 gm/ Sodium Chloride) 50 mls @ 100 mls/hr IV Q6H [facility] Last Infusion: 02/06/23 12:35 Dose: Infused Documented By: DOT Promethazine HCl 6.25 mg/ (Sodium Chloride) 50.25 mls @ 201 mls/hr IV Q4H PRN PRN Reason: Nausea and Vomiting Potassium Chloride (Potassium Chloride/H20) 10 meq in 100 mls @ 100 mls/hr IV Q1H [facility] Stop: 02/06/23 13:44 Last Admin: 02/06/23 12:33 Dose: 100 mls/hr Documented By: DOT Magnesium Sulfate (Magnesium Sulfate/H2o) 2 gm in 50 mls @ 50 mls/hr IV ONCE ONE Stop: 02/06/23 13:44 Loperamide HCl (Loperamide Hcl 2 Mg Capsule) 2 mg PO BID PRN PRN Reason: loose stool Lorazepam (Lorazepam 1 Mg Tablet) 1 mg PO BID PRN PRN Reason: anxiety Last Admin: 02/06/23 05:07 Dose: 1 mg Documented By: KEVIN Meclizine HCl (Meclizine Hcl 12.5 Mg Tablet) 12.5 mg PO DAILY PRN PRN Reason: dizziness Metoclopramide HCl (Metoclopramide Hcl 10 Mg/2 Ml Vial) 10 mg IVPUSH Q6H [facility] Last Admin: 02/06/23 08:50 Dose: 10 mg Documented By: DOT Morphine Sulfate (Morphine Sulfate Er 15 Mg Tablet.Er) 15 mg PO BEDTIME [facility] Last Admin: 02/05/23 21:02 Dose: 15 mg Documented By: KEVIN Ondansetron HCl (Ondansetron Hcl 4 Mg/2 Ml Vial) 4 mg IVPUSH Q8H PRN PRN Reason: Nausea and Vomiting Last Admin: 02/06/23 12:51 Dose: 4 mg Documented By: DOT Comments: Oxycodone HCl (Oxycodone Hcl Immed Release 5 Mg Tablet) 2.5 mg PO Q8H PRN PRN Reason: Pain, Moderate(Pain Scale 4-6) Last Admin: 02/06/23 05:06 Dose: 2.5 mg Documented By: KEVIN Sodium Chloride (0.9 % Sodium Chloride Flush 3 Ml Syringe) 3 ml IVFLUSH QSHIFT [facility] Last Admin: 02/06/23 08:50 Dose: Not Given Documented By: DOT Non-Admin Reason: IV Running Vitamin D (Cholecalciferol (Vitamin D3) 25 Mcg Tablet) 50 mcg PO DAILY [facility] Last Admin: 02/06/23 08:52 Dose: Not Given Documented By: DOT Non-Admin Reason: Patient Refused Labs 02/06/23 08:47 02/06/23 08:47 Labs: Laboratory Results - last 24 hr 02/06/23 08:47 MCV 82.7 MCH 26.6 L MCHC 32.2 RDW 14.3 Plt Count 306 MPV 9.3 L Absolute Nucleated RBC 0.000 Nucleated RBC % (auto) 0.0 Anion Gap 10 L Estim Creat Clear Calc 87.0 Estimated GFR > 60 Random Glucose 129 H Calcium 8.4 D Magnesium 1.5 L Assessment and Plan (1) Intractable nausea and vomiting: Status: Acute Plan 67-year-old female with history of metastatic squamous cell carcinoma of cervix, renal mass, chronic pain syndrome, chronic anemia, opioid dependence, and rheumatoid arthritis admitted for intractable nausea and vomiting and uncontrolled pain r/t metastatic cervical cancer. 1.Intractable nausea/vomiting w-PCP weaning patient from high dose narcotics ct abd repeat 02/05 noted -ct abd-?Ielus vs psbo vs entritis one liquid bm this morning abd pain also improving seen by oncology-on oxycodone and morphine adjusted ,also on iv dilaudid prn,continue antiemtics ,keep npo ,added iv hydration surgery eval- abd ct reviewed ,kub reviewed , recomended to continue above . If does not improve further may need small-bowel series in a.m. 2.Acute hypokalemia and hypomagnesmia added iv replacements moniter bmp closely 3.Metastatic cervical cancer -as per Oncology 4.RA/chronic pain syndrome -Pain management as above -Resume PO as tolerated 5.Mood disorder -continue lorazepam -has not been taking sertraline in 3m due to above sx. Consider resuming at lower dose as tolerated DVT prophylaxis- heparin DNR/DNI ongoing hospitalization for adequate pain control necessitating IV analgesia,ivf , multiple electrolytic abnormalities-need arm electrolyte repletion and close monitoring of electrolytes and renal function. Quality Stroke Does the patient have a stroke diagnosis?: No VTE Prior VTE?: No VTE Risk Level:: Medical - moderate - high VTE Device Contraindication: Treatment Not Indicated VTE Drug Contraindication: N/A - Med Ordered
[2023-02-06 16:00] VITALS: BP 133/68; PULSE 66; RESP 16; TEMP 36.6; O2SAT 97
--- NOTE | 2023-02-06 16:49 | P.PNGI_ITS ---
Subjective Subjective Date of Service: 02/06/23 Interval History: she relates her nausea and vomiting to decreases in her chronic narcotics. I advised her to discuss this with Dr Ortiz Critical Care Time (minutes): 0 Physical Exam 2 Vital Signs: Vital Signs: Last Vital Signs Temp 97.8 F 02/06/23 16:00 Pulse 66 02/06/23 16:00 Resp 16 02/06/23 16:00 BP 133/68 02/06/23 16:00 Pulse Ox 97 02/06/23 16:00 O2 Del Method Room Air 02/06/23 07:32 BMI result Body Mass Index 21.4 GI: Other: abdomen is soft and nontender she spit up saliva and water that she ingested. no shakila vomiting seen Objective Data Labs 02/06/23 08:47 02/06/23 08:47 Labs: Laboratory Results - last 24 hr 02/06/23 08:47 WBC 5.4 RBC 3.94 L Hgb 10.5 L Hct 32.6 L MCV 82.7 MCH 26.6 L MCHC 32.2 RDW 14.3 Plt Count 306 MPV 9.3 L Absolute Nucleated RBC 0.000 Nucleated RBC % (auto) 0.0 Sodium 138 Potassium 2.3 L* D Chloride 102 Carbon Dioxide 28 Anion Gap 10 L BUN 9 Creatinine 0.58 Estim Creat Clear Calc 87.0 Estimated GFR > 60 Random Glucose 129 H Calcium 8.4 D Magnesium 1.5 L Procedures Date of Service Date of Service: 02/06/23 Progress Note: A&P Assessment and plan (1) Intractable nausea and vomiting: Status: Acute Assessment and Plan: I recommend obtaining ugi and sbft. continue symptomatic treatment. Time Spent With Patient Time: Total time managing care of this patient today ____ minutes. Quality Stroke Does the patient have a stroke diagnosis?: No VTE Prior VTE?: No VTE Risk Level:: Medical - moderate - high VTE Device Contraindication: Treatment Not Indicated VTE Drug Contraindication: N/A - Med Ordered
--- NOTE | 2023-02-06 17:44 | PC.NURSE ---
Pt with complaints of nausea all shift, no vomiting witnessed. No BM reported or witnessed. Pt aware of need for stool specimen. Complaints of abdominal discomfort, medicated with IV dilaudid and po oxycodone with good effect. Pt slept in naps throughout the morning
[2023-02-06] MEDS: Magnesium Sulfate/H2O 2 GM/50 ML PIGGYBACK IV (18:42)
[2023-02-06 20:00] VITALS: BP 127/83; PULSE 71; RESP 16; TEMP 36.5; O2SAT 96
[2023-02-06] MEDS: Famotidine 20 MG TABLET PO (20:29)
[2023-02-06] MEDS: Morphine Sulfate ER 15 MG TABLET.ER PO (20:29)
[2023-02-06] MEDS: Clotrimazole 1 % Vaginal Cream 45 GM TUBE 1 APPL VAGINAL (20:37)
[2023-02-06] MEDS: Potassium Chloride ER 20 MEQ TAB.ER.PRT 40 MEQ PO (22:29)
[2023-02-07] MEDS: LORazepam 1 MG TABLET PO ×2 (00:31→12:48)
[2023-02-07] MEDS: HYDROmorphone HCl 0.5 MG/0.5 ML SYRINGE IVPUSH ×4 (00:31→21:55)
[2023-02-07] MEDS: Piperacillin Sodium/Tazobactam 3.375 GM in 0.9 % Sodium Chloride 50 ML IV ×4 (00:32→18:30)
[2023-02-07] MEDS: ondansetron HCL 4 MG/2 ML VIAL IVPUSH ×2 (00:39→15:41)
[2023-02-07] MEDS: Metoclopramide HCl 10 MG/2 ML VIAL IVPUSH ×4 (02:53→21:02)
[2023-02-07] MEDS: oxyCODONE HCl Immed Release 5 MG TABLET 2.5 MG PO ×3 (02:53→21:04)
[2023-02-07 03:20] VITALS: BP 115/62; PULSE 63; RESP 16; TEMP 36.7; O2SAT 95
[2023-02-07 07:17] VITALS: BP 127/69; PULSE 60; RESP 16; TEMP 36; O2SAT 94
[2023-02-07] MEDS: Diatrizoate Meglumine, Sodium 30 ML SOLUTION PO (08:45)
[2023-02-07] MEDS: Lactated Ringers 1,000 ML 80 ML IVCONT (10:36)
[2023-02-07 10:58] LABS: Anion Gap 13 (12-20); Blood Urea Nitrogen 7 mg/dL (9-16); Calcium 8.6 mg/dL (8.4-10.2); Carbon Dioxide 28 mmol/L (22-29); Chloride 100 mmol/L (96-108); Creatinine Clr Calc Pharmacy 85.5; Estimated Glomerular Filt Rate > 60; Glucose Random 88 mg/dL (60-115); Potassium 2.9 mmol/L (3.3-5.1); Sodium 138 mmol/L (135-145)
--- NOTE | 2023-02-07 11:49 | P.PNGI_ITS ---
Subjective Subjective Date of Service: 02/07/23 Interval History: still focusing on pain med dose decrease as the cause of nausea and vomiting Critical Care Time (minutes): 0 Physical Exam 2 Vital Signs: Vital Signs: Last Vital Signs Temp 96.8 F 02/07/23 07:17 Pulse 60 02/07/23 07:17 Resp 16 02/07/23 07:17 BP 127/69 02/07/23 07:17 Pulse Ox 94 02/07/23 07:17 O2 Del Method Room Air 02/07/23 07:17 BMI result Body Mass Index 21.4 GI: Other: abdomen is soft and nontender Objective Data Labs 02/06/23 08:47 02/07/23 10:39 Labs: Laboratory Results - last 24 hr 02/06/23 02/06/23 02/07/23 08:47 21:09 10:39 Sodium 138 Potassium 3.0 L D 2.9 L Chloride 100 Carbon Dioxide 28 Anion Gap 13 BUN 7 L Creatinine 0.59 Estim Creat Clear Calc 85.5 Estimated GFR > 60 Random Glucose 88 Calcium 8.6 Magnesium 1.5 L 2.0 Procedures Date of Service Date of Service: 02/07/23 Progress Note: A&P Assessment and plan (1) Intractable nausea and vomiting: Status: Acute Assessment and Plan: ugi/sbft pending no obvious abnormality on the films so far. needs pain med issues addressed. Time Spent With Patient Time: Total time managing care of this patient today ____ minutes. Quality Stroke Does the patient have a stroke diagnosis?: No VTE Prior VTE?: No VTE Risk Level:: Medical - moderate - high VTE Device Contraindication: Treatment Not Indicated VTE Drug Contraindication: N/A - Med Ordered
--- NOTE | 2023-02-07 12:38 | HO.PM.IMPN ---
Subjective Subjective Date of Service: 02/08/23 Interval History: Persistent nausea vomiting Review of Systems still say has vomiting-discussed with the staff -very small from a amount of vomiting overnight Says nauseated Passing gases Asking for more oxycodone Physical Exam Vital Signs: Vital Signs: Last Vital Signs Temp 96.8 F 02/07/23 07:17 Pulse 60 02/07/23 07:17 Resp 16 02/07/23 07:17 BP 127/69 02/07/23 07:17 Pulse Ox 94 02/07/23 07:17 O2 Del Method Room Air 02/07/23 07:17 BMI result Body Mass Index 21.4 ppearance: Alert.? Oriented X3.sitting ,no in distress cvs: [id number], [id number] , no murmur res: clear to auscultation ,no rhonchii or wheezing abd: no rebound or guarding ,nt, bs present. ext pulses present , no cyanosis neuro: nonfocal Objective Data Active Medications Acetaminophen (Acetaminophen 325 Mg Tablet) 650 mg PO Q6H PRN PRN Reason: Pain, Mild (Pain Scale 1-3) Calcium Carbonate (Calcium Carbonate 750 Mg Tab.Chew) 750 mg PO Q6H PRN PRN Reason: Heartburn Last Admin: 02/04/23 22:22 Dose: 750 mg Documented By: EFRAÍN Clotrimazole (Clotrimazole 1 % Vaginal Cream 45 Gm Tube) 1 appl VAGINAL BEDTIME [facility] Stop: 02/09/23 20:59 Last Admin: 02/06/23 20:37 Dose: 1 appl Documented By: KEVIN Famotidine (Famotidine 20 Mg Tablet) 20 mg PO BEDTIME [facility] Last Admin: 02/06/23 20:29 Dose: 20 mg Documented By: KEVIN Heparin Sodium (Porcine) (Heparin Sodium,Porcine 5,000 Unit/Ml Vial) 5,000 unit SUBCUT Q12H [facility] Last Admin: 02/07/23 10:46 Dose: Not Given Documented By: KEVIN Non-Admin Reason: Patient Refused Hydromorphone HCl (Hydromorphone Hcl 0.5 Mg/0.5 Ml Syringe) 0.5 mg IVPUSH Q6H PRN; Protocol PRN Reason: Pain, Severe (Pain Scale 7-10) Last Admin: 02/07/23 06:26 Dose: 0.5 mg Documented By: KEVIN Piperacillin Sod/Tazobactam (Sod 3.375 gm/ Sodium Chloride) 50 mls @ 100 mls/hr IV Q6H [facility] Last Infusion: 02/07/23 11:10 Dose: Infused Documented By: KEVIN Promethazine HCl 6.25 mg/ (Sodium Chloride) 50.25 mls @ 201 mls/hr IV Q4H PRN PRN Reason: Nausea and Vomiting Last Infusion: 02/06/23 18:08 Dose: Infused Documented By: SHAKEEL Lactated Ringer's (Lr) 1,000 mls @ 80 mls/hr IVCONT .[id number] [facility] Last Admin: 02/07/23 10:36 Dose: 80 mls/hr Documented By: KEVIN Loperamide HCl (Loperamide Hcl 2 Mg Capsule) 2 mg PO BID PRN PRN Reason: loose stool Lorazepam (Lorazepam 1 Mg Tablet) 1 mg PO BID PRN PRN Reason: anxiety Last Admin: 02/07/23 00:31 Dose: 1 mg Documented By: KEVIN Meclizine HCl (Meclizine Hcl 12.5 Mg Tablet) 12.5 mg PO DAILY PRN PRN Reason: dizziness Metoclopramide HCl (Metoclopramide Hcl 10 Mg/2 Ml Vial) 10 mg IVPUSH Q6H [facility] Last Admin: 02/07/23 10:35 Dose: 10 mg Documented By: KEVIN Morphine Sulfate (Morphine Sulfate Er 15 Mg Tablet.Er) 15 mg PO BEDTIME [facility] Last Admin: 02/06/23 20:29 Dose: 15 mg Documented By: KEVIN Ondansetron HCl (Ondansetron Hcl 4 Mg/2 Ml Vial) 4 mg IVPUSH Q8H PRN PRN Reason: Nausea and Vomiting Last Admin: 02/07/23 00:39 Dose: 4 mg Documented By: KEVIN Oxycodone HCl (Oxycodone Hcl Immed Release 5 Mg Tablet) 2.5 mg PO Q8H PRN PRN Reason: Pain, Moderate(Pain Scale 4-6) Last Admin: 02/07/23 10:52 Dose: 2.5 mg Documented By: KEVIN Sodium Chloride (0.9 % Sodium Chloride Flush 3 Ml Syringe) 3 ml IVFLUSH QSHIFT [facility] Last Admin: 02/07/23 09:02 Dose: Not Given Documented By: KEVIN Non-Admin Reason: IV Running Vitamin D (Cholecalciferol (Vitamin D3) 25 Mcg Tablet) 50 mcg PO DAILY [facility] Last Admin: 02/07/23 10:36 Dose: Not Given Documented By: KEVIN Non-Admin Reason: Patient Refused Labs 02/06/23 08:47 02/08/23 09:52 Labs: Laboratory Results - last 24 hr 02/06/23 02/06/23 02/07/23 08:47 21:09 10:39 Anion Gap 13 Estim Creat Clear Calc 85.5 Estimated GFR > 60 Random Glucose 88 Calcium 8.6 Magnesium 1.5 L 2.0 Assessment and Plan (1) Delayed gastric emptying: Status: Acute (2) Intractable nausea and vomiting: Status: Acute Plan 67-year-old female with history of metastatic squamous cell carcinoma of cervix, renal mass, chronic pain syndrome, chronic anemia, opioid dependence, and rheumatoid arthritis admitted for intractable nausea and vomiting and uncontrolled pain r/t metastatic cervical cancer. 1.Intractable nausea/vomiting w-PCP weaning patient from high dose narcotics ct abd repeat 02/05 noted -ct abd-?Ielus vs psbo vs entritis abd pain and nausea somewhat improving seen by oncology-on oxycodone and morphine adjusted ,also on iv dilaudid prn,continue antiemtics ,added iv hydration surgery eval- abd ct reviewed ,kub reviewed , recomended to continue above -small bowel series -which is in process . 2.Acute hypokalemia and hypomagnesmia improivng but k:2.9 added iv replacements moniter bmp closely 3.Metastatic cervical cancer -as per Oncology 4.RA/chronic pain syndrome -Pain management as above -Resume PO as tolerated 5.Mood disorder -continue lorazepam -has not been taking sertraline in 3m due to above sx. Consider resuming at lower dose as tolerated DVT prophylaxis- heparin DNR/DNI ongoing hospitalization for adequate pain control necessitating IV analgesia,ivf , multiple electrolytic abnormalities-need arm electrolyte repletion and close monitoring of electrolytes and renal function. Quality Stroke Does the patient have a stroke diagnosis?: No VTE Prior VTE?: No VTE Risk Level:: Medical - moderate - high VTE Device Contraindication: Treatment Not Indicated VTE Drug Contraindication: N/A - Med Ordered
[2023-02-07] MEDS: Potassium Chloride/H20 10 MEQ/100 ML PIGGYBACK 100 MEQ IV ×4 (13:41→16:59)
[2023-02-07] MEDS: Magnesium Sulfate/H2O 2 GM/50 ML PIGGYBACK IV (13:44)
--- NOTE | 2023-02-07 14:25 | P.PNGS_ITS ---
Subjective Subjective Date of Service: 02/07/23 Interval history: States she continues to have nausea and vomiting She says he is unable to tolerate a full meal Physical Exam 2 Vital Signs: Vital Signs: Last Vital Signs Temp 96.8 F 02/07/23 07:17 Pulse 60 02/07/23 07:17 Resp 16 02/07/23 07:17 BP 127/69 02/07/23 07:17 Pulse Ox 94 02/07/23 07:17 O2 Del Method Room Air 02/07/23 07:17 BMI result Body Mass Index 21.4 Const: General: comfortable and no acute distress Resp: Effort & Inspection: normal respiratory effort Cardio: Rate: regular rate GI: Inspection: No distended Palpation (GI): Soft to palpation, not firm, nontender and no guarding Objective Data Active Medications Acetaminophen (Acetaminophen 325 Mg Tablet) 650 mg PO Q6H PRN PRN Reason: Pain, Mild (Pain Scale 1-3) Calcium Carbonate (Calcium Carbonate 750 Mg Tab.Chew) 750 mg PO Q6H PRN PRN Reason: Heartburn Last Admin: 02/04/23 22:22 Dose: 750 mg Documented By: EFRAÍN Clotrimazole (Clotrimazole 1 % Vaginal Cream 45 Gm Tube) 1 appl VAGINAL BEDTIME [facility] Stop: 02/09/23 20:59 Last Admin: 02/06/23 20:37 Dose: 1 appl Documented By: KEVIN Famotidine (Famotidine 20 Mg Tablet) 20 mg PO BEDTIME [facility] Last Admin: 02/06/23 20:29 Dose: 20 mg Documented By: KEVIN Heparin Sodium (Porcine) (Heparin Sodium,Porcine 5,000 Unit/Ml Vial) 5,000 unit SUBCUT Q12H [facility] Last Admin: 02/07/23 10:46 Dose: Not Given Documented By: KEVIN Non-Admin Reason: Patient Refused Hydromorphone HCl (Hydromorphone Hcl 0.5 Mg/0.5 Ml Syringe) 0.5 mg IVPUSH Q6H PRN; Protocol PRN Reason: Pain, Severe (Pain Scale 7-10) Last Admin: 02/07/23 12:47 Dose: 0.5 mg Documented By: KEVIN Piperacillin Sod/Tazobactam (Sod 3.375 gm/ Sodium Chloride) 50 mls @ 100 mls/hr IV Q6H [facility] Last Infusion: 02/07/23 11:10 Dose: Infused Documented By: KEVIN Promethazine HCl 6.25 mg/ (Sodium Chloride) 50.25 mls @ 201 mls/hr IV Q4H PRN PRN Reason: Nausea and Vomiting Last Infusion: 02/06/23 18:08 Dose: Infused Documented By: SHAKEEL Lactated Ringer's (Lr) 1,000 mls @ 80 mls/hr IVCONT .[id number] [facility] Last Admin: 02/07/23 10:36 Dose: 80 mls/hr Documented By: KEVIN Potassium Chloride (Potassium Chloride/H20) 10 meq in 100 mls @ 100 mls/hr IV Q1H [facility] Stop: 02/07/23 16:59 Last Admin: 02/07/23 13:41 Dose: 100 mls/hr Documented By: KEVIN Loperamide HCl (Loperamide Hcl 2 Mg Capsule) 2 mg PO BID PRN PRN Reason: loose stool Lorazepam (Lorazepam 1 Mg Tablet) 1 mg PO BID PRN PRN Reason: anxiety Last Admin: 02/07/23 12:48 Dose: 1 mg Documented By: KEVIN Meclizine HCl (Meclizine Hcl 12.5 Mg Tablet) 12.5 mg PO DAILY PRN PRN Reason: dizziness Metoclopramide HCl (Metoclopramide Hcl 10 Mg/2 Ml Vial) 10 mg IVPUSH Q6H [facility] Last Admin: 02/07/23 13:42 Dose: 10 mg Documented By: KEVIN Morphine Sulfate (Morphine Sulfate Er 15 Mg Tablet.Er) 15 mg PO BEDTIME [facility] Last Admin: 02/06/23 20:29 Dose: 15 mg Documented By: KEVIN Ondansetron HCl (Ondansetron Hcl 4 Mg/2 Ml Vial) 4 mg IVPUSH Q8H PRN PRN Reason: Nausea and Vomiting Last Admin: 02/07/23 00:39 Dose: 4 mg Documented By: KEVIN Oxycodone HCl (Oxycodone Hcl Immed Release 5 Mg Tablet) 2.5 mg PO Q8H PRN PRN Reason: Pain, Moderate(Pain Scale 4-6) Last Admin: 02/07/23 10:52 Dose: 2.5 mg Documented By: KEVIN Sodium Chloride (0.9 % Sodium Chloride Flush 3 Ml Syringe) 3 ml IVFLUSH QSHIFT [facility] Last Admin: 02/07/23 09:02 Dose: Not Given Documented By: KEVIN Non-Admin Reason: IV Running Vitamin D (Cholecalciferol (Vitamin D3) 25 Mcg Tablet) 50 mcg PO DAILY [facility] Last Admin: 02/07/23 10:36 Dose: Not Given Documented By: KEVIN Non-Admin Reason: Patient Refused Labs 02/06/23 08:47 02/07/23 10:39 Labs: Laboratory Results - last 24 hr 02/06/23 02/07/23 21:09 10:39 Anion Gap 13 Estim Creat Clear Calc 85.5 Estimated GFR > 60 Random Glucose 88 Calcium 8.6 Magnesium 2.0 Procedures Date of Service Date of Service: 02/07/23 Progress Note: A&P Assessment and plan (1) Intractable nausea and vomiting: Status: Acute Assessment and Plan: I have ordered for a small-bowel series and this is currently on going She stated again that she knows that if her medications are returned to her usual dose, her nausea vomiting would resolve Her exam is otherwise very benign Will continue to follow and review her small bowel series imaging tomorrow Time Spent With Patient Time: Total time managing care of this patient today ____ minutes. Quality Stroke Does the patient have a stroke diagnosis?: No VTE Prior VTE?: No VTE Risk Level:: Medical - moderate - high VTE Device Contraindication: Treatment Not Indicated VTE Drug Contraindication: N/A - Med Ordered
[2023-02-07 16:00] VITALS: BP 146/62; PULSE 63; RESP 19; TEMP 35.9; O2SAT 95
[2023-02-07 19:32] VITALS: BP 131/61; PULSE 64; RESP 18; TEMP 36.4; O2SAT 98
[2023-02-07] MEDS: Morphine Sulfate ER 15 MG TABLET.ER PO (21:03)
[2023-02-07] MEDS: Famotidine 20 MG TABLET PO (21:05)
[2023-02-07] MEDS: bisacodyL 10 MG SUPP.RECT PR (22:37)
[2023-02-08] MEDS: LORazepam 1 MG TABLET PO ×2 (00:08→12:10)
[2023-02-08] MEDS: ondansetron HCL 4 MG/2 ML VIAL IVPUSH ×3 (00:08→23:44)
[2023-02-08] MEDS: Piperacillin Sodium/Tazobactam 3.375 GM in 0.9 % Sodium Chloride 50 ML IV ×5 (00:11→23:36)
[2023-02-08] MEDS: Lactated Ringers 1,000 ML 80 ML IVCONT ×3 (00:14→23:40)
[2023-02-08 03:57] VITALS: BP 153/69; PULSE 75; RESP 18; TEMP 36.7; O2SAT 96
[2023-02-08] MEDS: Metoclopramide HCl 10 MG/2 ML VIAL IVPUSH ×4 (04:09→19:56)
[2023-02-08] MEDS: oxyCODONE HCl Immed Release 5 MG TABLET 2.5 MG PO (04:36)
[2023-02-08] MEDS: HYDROmorphone HCl 0.5 MG/0.5 ML SYRINGE IVPUSH ×3 (05:55→21:04)
[2023-02-08 07:02] VITALS: BP 136/68; PULSE 74; RESP 18; TEMP 37; O2SAT 95
--- NOTE | 2023-02-08 10:35 | PM.PNGS ---
Subjective Subjective Date of Service: 02/11/23 Interval history: says she still has recurrent vomitting and pain with oral intake she states this has been worsening the past three months she says this started when her PCP dropped dose of her narcotics Physical Exam Vital Signs: Vital Signs: Last Vital Signs Temp 98.6 F 02/08/23 07:02 Pulse 74 02/08/23 07:02 Resp 18 02/08/23 07:02 BP 136/68 02/08/23 07:02 Pulse Ox 95 02/08/23 07:02 O2 Del Method Room Air 02/08/23 07:02 BMI result Body Mass Index 21.4 Const: General: comfortable and no acute distress Resp: Effort & Inspection: normal respiratory effort Cardio: Rate: regular rate GI: Palpation (GI): Soft to palpation, not firm, nontender and no guarding Objective Data Active Medications Acetaminophen (Acetaminophen 325 Mg Tablet) 650 mg PO Q6H PRN PRN Reason: Pain, Mild (Pain Scale 1-3) Calcium Carbonate (Calcium Carbonate 750 Mg Tab.Chew) 750 mg PO Q6H PRN PRN Reason: Heartburn Last Admin: 02/04/23 22:22 Dose: 750 mg Documented By: EFRAÍN Clotrimazole (Clotrimazole 1 % Vaginal Cream 45 Gm Tube) 1 appl VAGINAL BEDTIME [facility] Stop: 02/09/23 20:59 Last Admin: 02/07/23 21:11 Dose: Not Given Documented By: CR Non-Admin Reason: Med Not Available Famotidine (Famotidine 20 Mg Tablet) 20 mg PO BEDTIME [facility] Last Admin: 02/07/23 21:05 Dose: 20 mg Documented By: CR Heparin Sodium (Porcine) (Heparin Sodium,Porcine 5,000 Unit/Ml Vial) 5,000 unit SUBCUT Q12H [facility] Last Admin: 02/08/23 00:13 Dose: Not Given Documented By: CR Non-Admin Reason: Patient Refused Hydromorphone HCl (Hydromorphone Hcl 0.5 Mg/0.5 Ml Syringe) 0.5 mg IVPUSH Q6H PRN; Protocol PRN Reason: Pain, Severe (Pain Scale 7-10) Last Admin: 02/08/23 05:55 Dose: 0.5 mg Documented By: CR Piperacillin Sod/Tazobactam (Sod 3.375 gm/ Sodium Chloride) 50 mls @ 100 mls/hr IV Q6H [facility] Last Infusion: 02/08/23 06:26 Dose: Infused Documented By: CR Promethazine HCl 6.25 mg/ (Sodium Chloride) 50.25 mls @ 201 mls/hr IV Q4H PRN PRN Reason: Nausea and Vomiting Last Infusion: 02/07/23 18:34 Dose: Infused Documented By: RACHID Lactated Ringer's (Lr) 1,000 mls @ 80 mls/hr IVCONT .[id number] [facility] Last Admin: 02/08/23 09:32 Dose: Not Given Documented By: RACHID Non-Admin Reason: previous bag running still Erythromycin Lactobionate 250 (mg/ Sodium Chloride) 100 mls @ 100 mls/hr IV Q8H [facility] Loperamide HCl (Loperamide Hcl 2 Mg Capsule) 2 mg PO BID PRN PRN Reason: loose stool Lorazepam (Lorazepam 1 Mg Tablet) 1 mg PO BID PRN PRN Reason: anxiety Last Admin: 02/08/23 00:08 Dose: 1 mg Documented By: CR Meclizine HCl (Meclizine Hcl 12.5 Mg Tablet) 12.5 mg PO DAILY PRN PRN Reason: dizziness Metoclopramide HCl (Metoclopramide Hcl 10 Mg/2 Ml Vial) 10 mg IVPUSH Q6H [facility] Last Admin: 02/08/23 09:31 Dose: 10 mg Documented By: RACHID Morphine Sulfate (Morphine Sulfate Er 15 Mg Tablet.Er) 15 mg PO BEDTIME [facility] Last Admin: 02/07/23 21:03 Dose: 15 mg Documented By: CR Ondansetron HCl (Ondansetron Hcl 4 Mg/2 Ml Vial) 4 mg IVPUSH Q8H PRN PRN Reason: Nausea and Vomiting Last Admin: 02/08/23 09:32 Dose: 4 mg Documented By: RACHID Oxycodone HCl (Oxycodone Hcl Immed Release 5 Mg Tablet) 2.5 mg PO Q8H PRN PRN Reason: Pain, Moderate(Pain Scale 4-6) Last Admin: 02/08/23 04:36 Dose: 2.5 mg Documented By: NATALYA Sodium Chloride (0.9 % Sodium Chloride Flush 3 Ml Syringe) 3 ml IVFLUSH QSHIFT [facility] Last Admin: 02/08/23 09:30 Dose: Not Given Documented By: RACHID Non-Admin Reason: IV Running Vitamin D (Cholecalciferol (Vitamin D3) 25 Mcg Tablet) 50 mcg PO DAILY [facility] Last Admin: 02/08/23 09:31 Dose: Not Given Documented By: RACHID Non-Admin Reason: Patient Refused Labs 02/06/23 08:47 02/11/23 06:18 Labs: Laboratory Results - last 24 hr 02/07/23 02/08/23 10:39 09:52 Hold Purple Top SEE NOTE Anion Gap 13 Estim Creat Clear Calc 85.5 Estimated GFR > 60 Random Glucose 88 Calcium 8.6 Procedures Date of Service Date of Service: 02/11/23 Progress Note: A&P Assessment and plan (1) Delayed gastric emptying: Status: Acute Assessment and Plan: I have reviewed her SB series - large amount of contrast in stomach suggestive of slow gastric emptying consistent with symptoms of nausea and vomitting immediately after oral intake trial of promotility agents - Erythromycin 250 mg TID, Reglan exam otherwise benign Time Spent With Patient Time: Total time managing care of this patient today ____ minutes. Quality Stroke Does the patient have a stroke diagnosis?: No VTE Prior VTE?: No VTE Risk Level:: Medical - moderate - high VTE Device Contraindication: Treatment Not Indicated VTE Drug Contraindication: N/A - Med Ordered
--- NOTE | 2023-02-08 10:40 | MHC.CM.PN ---
Per MD rounds no discharge today. Patient continues on IV ABX. A stool spec for C-Diff is still pending collection. Patient is requiring IV dilauded and Oxy po for pain management. DP Home with resumption of [facility] services. Patient will arrange for a family member to provide transport home.
[2023-02-08 10:50] LABS: Anion Gap 16 (12-20); Blood Urea Nitrogen 6 mg/dL (9-16); Calcium 8.1 mg/dL (8.4-10.2); Carbon Dioxide 25 mmol/L (22-29); Chloride 100 mmol/L (96-108); Creatinine Clr Calc Pharmacy 102.9; Estimated Glomerular Filt Rate > 60; Glucose Random 72 mg/dL (60-115); Potassium 2.9 mmol/L (3.3-5.1); Sodium 138 mmol/L (135-145)
[2023-02-08] MEDS: Erythromycin Lactobionate 250 MG in 0.9 % Sodium Chloride 100 ML 100 MG IV ×2 (11:42→19:43)
[2023-02-08] MEDS: Potassium Chloride/H20 10 MEQ/100 ML PIGGYBACK 100 MEQ IV ×4 (13:23→17:05)
--- NOTE | 2023-02-08 13:35 | P.PNGI_ITS ---
Subjective Subjective Date of Service: 02/08/23 Interval History: feels better, just had dilaudid Critical Care Time (minutes): 0 Physical Exam 2 Vital Signs: Vital Signs: Last Vital Signs Temp 98.6 F 02/08/23 07:02 Pulse 74 02/08/23 07:02 Resp 18 02/08/23 07:02 BP 136/68 02/08/23 07:02 Pulse Ox 95 02/08/23 07:02 O2 Del Method Room Air 02/08/23 07:02 BMI result Body Mass Index 21.4 GI: Other: abdomen is soft and nontender Objective Data Labs 02/06/23 08:47 02/08/23 09:52 Labs: Laboratory Results - last 24 hr 02/08/23 09:52 Hold Purple Top SEE NOTE Sodium 138 Potassium 2.9 L Chloride 100 Carbon Dioxide 25 Anion Gap 16 BUN 6 L Creatinine 0.49 L Estim Creat Clear Calc 102.9 Estimated GFR > 60 Random Glucose 72 Calcium 8.1 L Procedures Date of Service Date of Service: 02/08/23 Progress Note: A&P Assessment and plan (1) Intractable nausea and vomiting: Status: Acute Assessment and Plan: discussed ugi series results with patient and explained that narcotics are likely the cause of the delayed gastric emptying. she continues to insist that narcotics are helping her feel better and not vomit. I have no further recommendations at this time. Time Spent With Patient Time: Total time managing care of this patient today ____ minutes. Quality Stroke Does the patient have a stroke diagnosis?: No VTE Prior VTE?: No VTE Risk Level:: Medical - moderate - high VTE Device Contraindication: Treatment Not Indicated VTE Drug Contraindication: N/A - Med Ordered
--- NOTE | 2023-02-08 14:41 | MHC.CLN ---
F/U DIET=CLEAR LIQUIDS. NEW DX DELAYED GASTRIC EMPTYING. HX RECENT POOR PO DUE TO NAUSEA, VOMITING. FOLLOW FOR DIET ADVANCEMENT AND TOLERANCE.
[2023-02-08 15:08] VITALS: BP 142/70; PULSE 74; RESP 16; TEMP 37; O2SAT 96
--- NOTE | 2023-02-08 15:36 | P.PNIM_ITS ---
Subjective Subjective Date of Service: 02/09/23 Interval History: nausea /vomitin Review of Systems still has very little vomiting but says she is having lot of vomiting Physical Exam 2 Vital Signs: Vital Signs: Last Vital Signs Temp 98.6 F 02/08/23 15:08 Pulse 74 02/08/23 15:08 Resp 16 02/08/23 15:08 BP 142/70 H 02/08/23 15:08 Pulse Ox 96 02/08/23 15:08 O2 Del Method Room Air 02/08/23 15:08 BMI result Body Mass Index 21.4 appearance: Alert.? Oriented X3.sitting ,no in distress cvs: [id number], [id number] , no murmur res: clear to auscultation ,no rhonchii or wheezing abd: no rebound or guarding ,nt, bs present. ext pulses present , no cyanosis neuro: nonfocal Objective Data Active Medications Acetaminophen (Acetaminophen 325 Mg Tablet) 650 mg PO Q6H PRN PRN Reason: Pain, Mild (Pain Scale 1-3) Calcium Carbonate (Calcium Carbonate 750 Mg Tab.Chew) 750 mg PO Q6H PRN PRN Reason: Heartburn Last Admin: 02/04/23 22:22 Dose: 750 mg Documented By: EFRAÍN Clotrimazole (Clotrimazole 1 % Vaginal Cream 45 Gm Tube) 1 appl VAGINAL BEDTIME [facility] Stop: 02/09/23 20:59 Last Admin: 02/07/23 21:11 Dose: Not Given Documented By: CR Non-Admin Reason: Med Not Available Famotidine (Famotidine 20 Mg Tablet) 20 mg PO BEDTIME [facility] Last Admin: 02/07/23 21:05 Dose: 20 mg Documented By: CR Heparin Sodium (Porcine) (Heparin Sodium,Porcine 5,000 Unit/Ml Vial) 5,000 unit SUBCUT Q12H [facility] Last Admin: 02/08/23 11:47 Dose: Not Given Documented By: RACHID Non-Admin Reason: pt refused Hydromorphone HCl (Hydromorphone Hcl 0.5 Mg/0.5 Ml Syringe) 0.5 mg IVPUSH Q6H PRN; Protocol PRN Reason: Pain, Severe (Pain Scale 7-10) Last Admin: 02/08/23 12:06 Dose: 0.5 mg Documented By: RACHID Piperacillin Sod/Tazobactam (Sod 3.375 gm/ Sodium Chloride) 50 mls @ 100 mls/hr IV Q6H [facility] Last Infusion: 02/08/23 13:40 Dose: Infused Documented By: RACHID Promethazine HCl 6.25 mg/ (Sodium Chloride) 50.25 mls @ 201 mls/hr IV Q4H PRN PRN Reason: Nausea and Vomiting Last Infusion: 02/07/23 18:34 Dose: Infused Documented By: RACHID Lactated Ringer's (Lr) 1,000 mls @ 80 mls/hr IVCONT .[id number] [facility] Last Admin: 02/08/23 11:47 Dose: 80 mls/hr Documented By: RACHID Erythromycin Lactobionate 250 (mg/ Sodium Chloride) 100 mls @ 100 mls/hr IV Q8H [facility] Last Infusion: 02/08/23 12:45 Dose: Infused Documented By: RACHID Potassium Chloride (Potassium Chloride/H20) 10 meq in 100 mls @ 100 mls/hr IV Q1H [facility] Stop: 02/08/23 16:44 Last Admin: 02/08/23 14:49 Dose: 100 mls/hr Documented By: RACHID Loperamide HCl (Loperamide Hcl 2 Mg Capsule) 2 mg PO BID PRN PRN Reason: loose stool Lorazepam (Lorazepam 1 Mg Tablet) 1 mg PO BID PRN PRN Reason: anxiety Last Admin: 02/08/23 12:10 Dose: 1 mg Documented By: RACHID Meclizine HCl (Meclizine Hcl 12.5 Mg Tablet) 12.5 mg PO DAILY PRN PRN Reason: dizziness Metoclopramide HCl (Metoclopramide Hcl 10 Mg/2 Ml Vial) 10 mg IVPUSH Q6H [facility] Last Admin: 02/08/23 14:32 Dose: 10 mg Documented By: RACHID Morphine Sulfate (Morphine Sulfate Er 15 Mg Tablet.Er) 15 mg PO BEDTIME [facility] Last Admin: 02/07/23 21:03 Dose: 15 mg Documented By: CR Ondansetron HCl (Ondansetron Hcl 4 Mg/2 Ml Vial) 4 mg IVPUSH Q8H PRN PRN Reason: Nausea and Vomiting Last Admin: 02/08/23 09:32 Dose: 4 mg Documented By: RACHID Oxycodone HCl (Oxycodone Hcl Immed Release 5 Mg Tablet) 2.5 mg PO Q8H PRN PRN Reason: Pain, Moderate(Pain Scale 4-6) Last Admin: 02/08/23 04:36 Dose: 2.5 mg Documented By: NATALYA Sodium Chloride (0.9 % Sodium Chloride Flush 3 Ml Syringe) 3 ml IVFLUSH QSHIFT [facility] Last Admin: 02/08/23 14:55 Dose: Not Given Documented By: RACHID Non-Admin Reason: IV Running Vitamin D (Cholecalciferol (Vitamin D3) 25 Mcg Tablet) 50 mcg PO DAILY [facility] Last Admin: 02/08/23 09:31 Dose: Not Given Documented By: RACHID Non-Admin Reason: Patient Refused Labs 02/06/23 08:47 02/09/23 05:40 Labs: Laboratory Results - last 24 hr 02/08/23 09:52 Hold Purple Top SEE NOTE Anion Gap 16 Estim Creat Clear Calc 102.9 Estimated GFR > 60 Random Glucose 72 Calcium 8.1 L Assessment and Plan (1) Intractable nausea and vomiting: Status: Acute Plan 67-year-old female with history of metastatic squamous cell carcinoma of cervix, renal mass, chronic pain syndrome, chronic anemia, opioid dependence, and rheumatoid arthritis admitted for intractable nausea and vomiting and uncontrolled pain r/t metastatic cervical cancer. 1.Intractable nausea/vomiting w-PCP weaning patient from high dose narcotics ct abd repeat 02/05 noted -ct abd-?Iellus but small bowel series howed - delayed gastric emptying abd pain and nausea somewhat improving seen by oncology-on oxycodone and morphine adjusted ,also on iv dilaudid prn,continue antiemtics ,added iv hydration surgery eval- abd ct reviewed ,kub reviewed , recomended to continue above - small bowel series -delayed gastric emptying -added azithromycin Gi follow -continue above management. 2.Acute hypokalemia and hypomagnesmia improivng but k:2.9 added iv replacements moniter bmp closely 3.Metastatic cervical cancer -as per Oncology 4.RA/chronic pain syndrome -Pain management as above -Resume PO as tolerated 5.Mood disorder -continue lorazepam -has not been taking sertraline in 3m due to above sx. Consider resuming at lower dose as tolerated DVT prophylaxis- heparin DNR/DNI ongoing hospitalization for adequate pain control necessitating IV analgesia,ivf , multiple electrolytic abnormalities-need arm electrolyte repletion and close monitoring of electrolytes and renal function. Quality Stroke Does the patient have a stroke diagnosis?: No VTE Prior VTE?: No VTE Risk Level:: Medical - moderate - high VTE Device Contraindication: Treatment Not Indicated VTE Drug Contraindication: N/A - Med Ordered
[2023-02-08] MEDS: Magnesium Sulfate/D5W 1 GM/100 ML PIGGYBACK IV (17:06)
[2023-02-08] MEDS: Famotidine 20 MG TABLET PO (19:53)
[2023-02-08] MEDS: Morphine Sulfate ER 15 MG TABLET.ER PO (19:53)
[2023-02-08 20:00] VITALS: BP 160/79; PULSE 78; RESP 14; TEMP 36.6; O2SAT 93
[2023-02-09] MEDS: LORazepam 1 MG TABLET PO ×2 (00:05→14:22)
--- NOTE | 2023-02-09 00:55 | MHC.PIE ---
p; pt c/o pain 12/18 to abd burning, prn dilaudid q6 given at 2100. note; prn oxy and scheduled ms contin d/c, is aware. i; dr jimenes notified. give early dose dilaudid now e; will cont to monitor
[2023-02-09] MEDS: HYDROmorphone HCl 0.5 MG/0.5 ML SYRINGE IVPUSH ×4 (00:58→20:08)
[2023-02-09 03:22] VITALS: BP 130/77; PULSE 72; RESP 16; TEMP 36.3; O2SAT 95
[2023-02-09] MEDS: Metoclopramide HCl 10 MG/2 ML VIAL IVPUSH ×4 (03:46→20:01)
[2023-02-09] MEDS: Erythromycin Lactobionate 250 MG in 0.9 % Sodium Chloride 100 ML 100 MG IV ×3 (03:49→20:01)
[2023-02-09] MEDS: Piperacillin Sodium/Tazobactam 3.375 GM in 0.9 % Sodium Chloride 50 ML IV ×4 (04:52→23:15)
[2023-02-09 06:40] LABS: Anion Gap 15 (12-20); Blood Urea Nitrogen 5 mg/dL (9-16); Calcium 8.1 mg/dL (8.4-10.2); Carbon Dioxide 24 mmol/L (22-29); Chloride 98 mmol/L (96-108); Creatinine Clr Calc Pharmacy 88.5; Estimated Glomerular Filt Rate > 60; Glucose Random 68 mg/dL (60-115); Potassium 3.2 mmol/L (3.3-5.1); Sodium 134 mmol/L (135-145)
[2023-02-09 07:56] VITALS: BP 165/86; PULSE 79; RESP 18; TEMP 36.9; O2SAT 93
[2023-02-09] MEDS: Potassium Chloride/H20 10 MEQ/100 ML PIGGYBACK 100 MEQ IV ×4 (07:59→16:14)
[2023-02-09] MEDS: ondansetron HCL 4 MG/2 ML VIAL IVPUSH ×2 (11:11→23:15)
--- NOTE | 2023-02-09 12:10 | HO.PM.IMPN ---
Subjective Subjective Date of Service: 02/09/23 Interval History: gasteroparesis Review of Systems less nauseated no abd pain passing gases Physical Exam Vital Signs: Vital Signs: Last Vital Signs Temp 98.4 F 02/09/23 07:56 Pulse 79 02/09/23 07:56 Resp 18 02/09/23 07:56 BP 165/86 H 02/09/23 07:56 Pulse Ox 93 02/09/23 07:56 O2 Del Method Room Air 02/09/23 07:56 BMI result Body Mass Index 21.4 appearance: Alert.? Oriented X3.sitting ,no in distress cvs: rrr, [id number] , no murmur res: clear to auscultation ,no rhonchii or wheezing abd: no rebound or guarding ,nt, bs present. ext pulses present , no cyanosis neuro: nonfocal Objective Data Active Medications Acetaminophen (Acetaminophen 325 Mg Tablet) 650 mg PO Q6H PRN PRN Reason: Pain, Mild (Pain Scale 1-3) Calcium Carbonate (Calcium Carbonate 750 Mg Tab.Chew) 750 mg PO Q6H PRN PRN Reason: Heartburn Last Admin: 02/04/23 22:22 Dose: 750 mg Documented By: EFRAÍN Clotrimazole (Clotrimazole 1 % Vaginal Cream 45 Gm Tube) 1 appl VAGINAL BEDTIME [facility] Stop: 02/09/23 20:59 Last Admin: 02/08/23 19:55 Dose: Not Given Documented By: CR Non-Admin Reason: Med Not Available Famotidine (Famotidine 20 Mg Tablet) 20 mg PO BEDTIME [facility] Last Admin: 02/08/23 19:53 Dose: 20 mg Documented By: CR Heparin Sodium (Porcine) (Heparin Sodium,Porcine 5,000 Unit/Ml Vial) 5,000 unit SUBCUT Q12H [facility] Last Admin: 02/09/23 11:07 Dose: Not Given Documented By: RICKEY Non-Admin Reason: Patient Refused Hydromorphone HCl (Hydromorphone Hcl 0.5 Mg/0.5 Ml Syringe) 0.5 mg IVPUSH Q6H PRN; Protocol PRN Reason: Pain, Severe (Pain Scale 7-10) Last Admin: 02/09/23 08:00 Dose: 0.5 mg Documented By: RICKEY Piperacillin Sod/Tazobactam (Sod 3.375 gm/ Sodium Chloride) 50 mls @ 100 mls/hr IV Q6H [facility] Last Infusion: 02/09/23 05:23 Dose: Infused Documented By: CR Promethazine HCl 6.25 mg/ (Sodium Chloride) 50.25 mls @ 201 mls/hr IV Q4H PRN PRN Reason: Nausea and Vomiting Last Infusion: 02/07/23 18:34 Dose: Infused Documented By: RACHID Erythromycin Lactobionate 250 (mg/ Sodium Chloride) 100 mls @ 100 mls/hr IV Q8H [facility] Last Admin: 02/09/23 11:11 Dose: 100 mls/hr Documented By: RICKEY Loperamide HCl (Loperamide Hcl 2 Mg Capsule) 2 mg PO BID PRN PRN Reason: loose stool Lorazepam (Lorazepam 1 Mg Tablet) 1 mg PO BID PRN PRN Reason: anxiety Last Admin: 02/09/23 00:05 Dose: 1 mg Documented By: CR Meclizine HCl (Meclizine Hcl 12.5 Mg Tablet) 12.5 mg PO DAILY PRN PRN Reason: dizziness Metoclopramide HCl (Metoclopramide Hcl 10 Mg/2 Ml Vial) 10 mg IVPUSH Q6H [facility] Last Admin: 02/09/23 07:44 Dose: 10 mg Documented By: RICKEY Ondansetron HCl (Ondansetron Hcl 4 Mg/2 Ml Vial) 4 mg IVPUSH Q8H PRN PRN Reason: Nausea and Vomiting Last Admin: 02/09/23 11:11 Dose: 4 mg Documented By: RICKEY Oxycodone HCl (Oxycodone Hcl Immed Release 5 Mg Tablet) 2.5 mg PO Q8H PRN PRN Reason: Pain, Mild (Pain Scale 1-3) Sodium Chloride (0.9 % Sodium Chloride Flush 3 Ml Syringe) 3 ml IVFLUSH QSHIFT [facility] Last Admin: 02/09/23 07:24 Dose: Not Given Documented By: RICKEY Non-Admin Reason: IV Running Vitamin D (Cholecalciferol (Vitamin D3) 25 Mcg Tablet) 50 mcg PO DAILY [facility] Last Admin: 02/09/23 07:40 Dose: Not Given Documented By: RICKEY Non-Admin Reason: Patient Refused Labs 02/06/23 08:47 02/09/23 05:40 Labs: Laboratory Results - last 24 hr 02/09/23 05:40 Hold Purple Top SEE NOTE Anion Gap 15 Estim Creat Clear Calc 88.5 Estimated GFR > 60 Random Glucose 68 Calcium 8.1 L Assessment and Plan (1) Intractable nausea and vomiting: Status: Acute Plan 67-year-old female with history of metastatic squamous cell carcinoma of cervix, renal mass, chronic pain syndrome, chronic anemia, opioid dependence, and rheumatoid arthritis admitted for intractable nausea and vomiting and uncontrolled pain r/t metastatic cervical cancer. 1.Intractable nausea/vomiting w-PCP weaning patient from high dose narcotics ct abd repeat 02/05 noted -ct abd-?Iellus but small bowel series howed -delayed gastric emptying abd pain and nausea somewhat improving seen by oncology-on oxycodone and morphine adjusted ,also on iv dilaudid prn,continue antiemtics ,added iv hydration,iv erythromycin says erythomycin helping -starting taking po today Gi follow -continue above management. 2.Acute hypokalemia and hypomagnesmia improivng but k:3.2 added replacements . moniter bmp closely 3.Metastatic cervical cancer-as per Oncology. 4.RA/chronic pain syndrome -Pain management as above -Resume PO as tolerated 5.Mood disorder -continue lorazepam -has not been taking sertraline in 3m due to above sx. Consider resuming at lower dose as tolerated DVT prophylaxis- heparin DNR/DNI ongoing hospitalization: adequate pain control necessitating IV analgesia,ivf , multiple electrolytic abnormalities-need arm electrolyte repletion and close monitoring of electrolytes and renal function. Quality Stroke Does the patient have a stroke diagnosis?: No VTE Prior VTE?: No VTE Risk Level:: Medical - moderate - high VTE Device Contraindication: Treatment Not Indicated VTE Drug Contraindication: N/A - Med Ordered
[2023-02-09] MEDS: oxyCODONE HCl Immed Release 5 MG TABLET 2.5 MG PO ×2 (12:14→21:13)
[2023-02-09] MEDS: Docusate Sodium 100 MG CAPSULE PO ×2 (12:29→20:01)
[2023-02-09 15:27] VITALS: BP 105/60; PULSE 85; RESP 17; TEMP 37.2; O2SAT 93
[2023-02-09 19:32] VITALS: BP 149/69; PULSE 84; RESP 16; TEMP 35.9; O2SAT 94
[2023-02-09] MEDS: Famotidine 20 MG TABLET PO (20:01)
[2023-02-09] MEDS: Lactated Ringers 1,000 ML 80 ML IVCONT (21:12)
[2023-02-10] MEDS: LORazepam 1 MG TABLET PO ×2 (00:04→13:32)
[2023-02-10] MEDS: HYDROmorphone HCl 0.5 MG/0.5 ML SYRINGE IVPUSH ×2 (02:13→09:48)
[2023-02-10] MEDS: Metoclopramide HCl 10 MG/2 ML VIAL IVPUSH ×4 (02:14→20:47)
[2023-02-10] MEDS: Erythromycin Lactobionate 250 MG in 0.9 % Sodium Chloride 100 ML 100 MG IV ×3 (02:14→19:03)
[2023-02-10 04:00] VITALS: BP 138/76; PULSE 70; RESP 16; TEMP 36.4; O2SAT 94
[2023-02-10] MEDS: Piperacillin Sodium/Tazobactam 3.375 GM in 0.9 % Sodium Chloride 50 ML IV ×3 (06:10→18:11)
[2023-02-10 07:41] VITALS: BP 123/62; PULSE 71; RESP 16; TEMP 36.2; O2SAT 96
[2023-02-10] MEDS: Docusate Sodium 100 MG CAPSULE PO (08:03)
[2023-02-10] MEDS: Cholecalciferol (Vitamin D3) 25 MCG TABLET 50 MCG PO (08:03)
[2023-02-10] MEDS: oxyCODONE HCl Immed Release 5 MG TABLET 2.5 MG PO ×2 (08:03→22:31)
[2023-02-10] MEDS: Lactated Ringers 1,000 ML 80 ML IVCONT ×2 (08:07→20:46)
[2023-02-10 08:09] LABS: Anion Gap 14 (12-20); Blood Urea Nitrogen 5 mg/dL (9-16); Carbon Dioxide 22 mmol/L (22-29); Chloride 99 mmol/L (96-108); Creatinine Clr Calc Pharmacy 93.4; Estimated Glomerular Filt Rate > 60; Glucose Random 70 mg/dL (60-115); Potassium 3.2 mmol/L (3.3-5.1); Sodium 132 mmol/L (135-145)
--- NOTE | 2023-02-10 11:37 | HO.PM.IMPN ---
Subjective Subjective Date of Service: 02/10/23 Interval History: gasteroparesis Review of Systems today she said nausea and vomiting improving no abd pain pass 1bm Physical Exam Vital Signs: Vital Signs: Last Vital Signs Temp 97.2 F 02/10/23 07:41 Pulse 71 02/10/23 07:41 Resp 16 02/10/23 07:41 BP 123/62 02/10/23 07:41 Pulse Ox 96 02/10/23 07:41 O2 Del Method Room Air 02/10/23 07:41 BMI result Body Mass Index 21.4 appearance: Alert.? Oriented X3.sitting ,no in distress cvs: rrr, [id number] , no murmur res: clear to auscultation ,no rhonchii or wheezing abd: no rebound or guarding ,nt, bs present. ext pulses present , no cyanosis neuro: nonfocal Objective Data Active Medications Acetaminophen (Acetaminophen 325 Mg Tablet) 650 mg PO Q6H PRN PRN Reason: Pain, Mild (Pain Scale 1-3) Calcium Carbonate (Calcium Carbonate 750 Mg Tab.Chew) 750 mg PO Q6H PRN PRN Reason: Heartburn Last Admin: 02/04/23 22:22 Dose: 750 mg Documented By: FLORENCIAILLuiza Docusate Sodium (Docusate Sodium 100 Mg Capsule) 100 mg PO BID [facility] Last Admin: 02/10/23 08:03 Dose: 100 mg Documented By: RICKEY Famotidine (Famotidine 20 Mg Tablet) 20 mg PO BEDTIME [facility] [place] Last Admin: 02/09/23 20:01 Dose: 20 mg Documented By: CR Heparin Sodium (Porcine) (Heparin Sodium,Porcine 5,000 Unit/Ml Vial) 5,000 unit SUBCUT Q12H [facility] [place] Last Admin: 02/10/23 11:03 Dose: Not Given Documented By: RICKEY Non-Admin Reason: Patient Refused Hydromorphone HCl (Hydromorphone Hcl 0.5 Mg/0.5 Ml Syringe) 0.25 mg IVPUSH Q6H PRN; Protocol PRN Reason: Pain, Severe (Pain Scale 7-10) Piperacillin Sod/Tazobactam (Sod 3.375 gm/ Sodium Chloride) 50 mls @ 100 mls/hr IV Q6H [facility] [place] Last Infusion: 02/10/23 06:40 Dose: Infused Documented By: CR Promethazine HCl 6.25 mg/ (Sodium Chloride) 50.25 mls @ 201 mls/hr IV Q4H PRN PRN Reason: Nausea and Vomiting Last Infusion: 02/07/23 18:34 Dose: Infused Documented By: RACHID Erythromycin Lactobionate 250 (mg/ Sodium Chloride) 100 mls @ 100 mls/hr IV Q8H [facility] [place] Last Admin: 02/10/23 11:10 Dose: 100 mls/hr Documented By: RICKEY Lactated Ringer's (Lr) 1,000 mls @ 80 mls/hr IVCONT .[id number] [facility] [place] Last Admin: 02/10/23 08:07 Dose: 80 mls/hr Documented By: RICKEY Loperamide HCl (Loperamide Hcl 2 Mg Capsule) 2 mg PO BID PRN PRN Reason: loose stool Lorazepam (Lorazepam 1 Mg Tablet) 1 mg PO BID PRN PRN Reason: anxiety Last Admin: 02/10/23 00:04 Dose: 1 mg Documented By: CR Meclizine HCl (Meclizine Hcl 12.5 Mg Tablet) 12.5 mg PO DAILY PRN PRN Reason: dizziness Metoclopramide HCl (Metoclopramide Hcl 10 Mg/2 Ml Vial) 10 mg IVPUSH Q6H [facility] [place] Last Admin: 02/10/23 08:04 Dose: 10 mg Documented By: RICKEY Ondansetron HCl (Ondansetron Hcl 4 Mg/2 Ml Vial) 4 mg IVPUSH Q8H PRN PRN Reason: Nausea and Vomiting Last Admin: 02/09/23 23:15 Dose: 4 mg Documented By: CR Oxycodone HCl (Oxycodone Hcl Immed Release 5 Mg Tablet) 2.5 mg PO Q8H PRN PRN Reason: Pain, Mild (Pain Scale 1-3) Last Admin: 02/10/23 08:03 Dose: 2.5 mg Documented By: RICKEY Sodium Chloride (0.9 % Sodium Chloride Flush 3 Ml Syringe) 3 ml IVFLUSH QSHIFT [facility] [place] Last Admin: 02/10/23 07:09 Dose: Not Given Documented By: RICKEY Non-Admin Reason: IV Running Vitamin D (Cholecalciferol (Vitamin D3) 25 Mcg Tablet) 50 mcg PO DAILY [facility] Last Admin: 02/10/23 08:03 Dose: 50 mcg Documented By: RICKEY Labs 02/06/23 08:47 02/10/23 07:44 Labs: Laboratory Results - last 24 hr 02/10/23 07:44 Hold Purple Top SEE NOTE Anion Gap 14 Estim Creat Clear Calc 93.4 Estimated GFR > 60 Random Glucose 70 Calcium 8.0 L Assessment and Plan (1) Delayed gastric emptying: Status: Acute (2) Intractable nausea and vomiting: Status: Acute Plan 67-year-old female with history of metastatic squamous cell carcinoma of cervix, renal mass, chronic pain syndrome, chronic anemia, opioid dependence, and rheumatoid arthritis admitted for intractable nausea and vomiting and uncontrolled pain r/t metastatic cervical cancer. 1.Intractable nausea/vomiting w-PCP weaning patient from high dose narcotics ct abd repeat 02/05 noted -ct abd-?Iellus but small bowel series howed -delayed gastric emptying abd pain and nausea somewhat improving seen by oncology-on oxycodone and morphine adjusted ,taper to stop iv dilaudid prn,continue antiemtics , iv hydration,erythromycin says erythomycin helping ,today her nausea ,vomiting imporving ,starting tolerating someliquid diet. Gi follow -continue above management. will try advance diet futher diet. 2.Acute hypokalemia and hypomagnesmia improivng but k:3.2 added potassium. moniter bmp closely 3.Metastatic cervical cancer-as per Oncology. 4.RA/chronic pain syndrome -Pain management as above -Resume PO as tolerated 5.Mood disorder -continue lorazepam -has not been taking sertraline in 3m due to above sx. Consider resuming at lower dose as tolerated DVT prophylaxis- heparin DNR/DNI ongoing hospitalization: adequate pain control necessitating IV analgesia,ivf , multiple electrolytic abnormalities-need arm electrolyte repletion and close monitoring of electrolytes and renal function Quality Stroke Does the patient have a stroke diagnosis?: No VTE Prior VTE?: No VTE Risk Level:: Medical - moderate - high VTE Device Contraindication: Treatment Not Indicated VTE Drug Contraindication: N/A - Med Ordered
[2023-02-10] MEDS: Potassium Chloride ER 20 MEQ TAB.ER.PRT PO (12:23)
[2023-02-10] MEDS: HYDROmorphone HCl 0.5 MG/0.5 ML SYRINGE 0.25 MG IVPUSH ×2 (13:33→21:09)
[2023-02-10 14:41] LABS: Adenovirus F 40/41 Not Detected (Not Detect.); Astrovirus Not Detected (Not Detect.); Campylobacter Not Detected (Not Detect.); Cryptosporidium Not Detected (Not Detect.); Cyclospora cayetanensis Not Detected (Not Detect.); E. coli EAEC Not Detected (Not Detect.); E. coli EPEC Not Detected (Not Detect.); E. coli ETEC Not Detected (Not Detect.); E. coli STEC Not Detected (Not Detect.); Entamoeba histolytica Not Detected (Not Detect.); Giardia lamblia Not Detected (Not Detect.); Norovirus GI/GII Not Detected (Not Detect.); Plesiomonas shigelloides Not Detected (Not Detect.); Rotavirus A Not Detected (Not Detect.); Salmonella Not Detected (Not Detect.); Sapovirus Not Detected (Not Detect.); Shigella sp./EIEC Not Detected (Not Detect.); Vibrio Not Detected (Not Detect.); Vibrio Cholerae Not Detected (Not Detect.); Yersinia enterocolitica Not Detected (Not Detect.)
[2023-02-10 15:35] VITALS: BP 118/70; PULSE 67; RESP 18; TEMP 36.9; O2SAT 95
[2023-02-10 20:00] VITALS: BP 174/77; PULSE 75; RESP 18; TEMP 36.3; O2SAT 95
[2023-02-10] MEDS: Famotidine 20 MG TABLET PO (20:47)
[2023-02-11] MEDS: Piperacillin Sodium/Tazobactam 3.375 GM in 0.9 % Sodium Chloride 50 ML IV ×2 (00:03→05:56)
[2023-02-11] MEDS: 0.9 % Sodium Chloride Flush 3 ML SYRINGE IVFLUSH ×2 (00:03→21:15)
[2023-02-11] MEDS: LORazepam 1 MG TABLET PO ×2 (00:15→12:17)
[2023-02-11] MEDS: Metoclopramide HCl 10 MG/2 ML VIAL IVPUSH ×4 (02:28→21:15)
[2023-02-11] MEDS: Erythromycin Lactobionate 250 MG in 0.9 % Sodium Chloride 100 ML 100 MG IV ×3 (02:28→20:59)
[2023-02-11] MEDS: HYDROmorphone HCl 0.5 MG/0.5 ML SYRINGE 0.25 MG IVPUSH (03:07)
[2023-02-11 04:00] VITALS: BP 141/67; PULSE 79; RESP 18; TEMP 36.2; O2SAT 95
[2023-02-11 07:28] LABS: Anion Gap 14 (12-20); Blood Urea Nitrogen 4 mg/dL (9-16); Carbon Dioxide 24 mmol/L (22-29); Chloride 99 mmol/L (96-108); Creatinine Clr Calc Pharmacy 98.9; Estimated Glomerular Filt Rate > 60; Glucose Random 77 mg/dL (60-115); Potassium 2.6 mmol/L (3.3-5.1); Sodium 134 mmol/L (135-145)
[2023-02-11 07:44] VITALS: BP 119/71; PULSE 70; RESP 16; TEMP 36.7; O2SAT 95
--- NOTE | 2023-02-11 08:04 | PM.PNGS ---
Subjective Subjective Date of Service: 02/15/23 Interval history: Describes loose stools No vomiting overnight Seems to be tolerating sips of clear liquids Physical Exam Vital Signs: Vital Signs: Last Vital Signs Temp 98.1 F 02/11/23 07:44 Pulse 70 02/11/23 07:44 Resp 16 02/11/23 07:44 BP 119/71 02/11/23 07:44 Pulse Ox 95 02/11/23 07:44 O2 Del Method Room Air 02/11/23 07:44 BMI result Body Mass Index 21.4 Const: General: comfortable and no acute distress Resp: Effort & Inspection: normal respiratory effort Cardio: Rate: regular rate GI: Palpation (GI): Soft to palpation, not firm and no guarding Objective Data Active Medications Acetaminophen (Acetaminophen 325 Mg Tablet) 650 mg PO Q6H PRN PRN Reason: Pain, Mild (Pain Scale 1-3) Calcium Carbonate (Calcium Carbonate 750 Mg Tab.Chew) 750 mg PO Q6H PRN PRN Reason: Heartburn Last Admin: 02/04/23 22:22 Dose: 750 mg Documented By: EFRAÍN Famotidine (Famotidine 20 Mg Tablet) 20 mg PO BEDTIME [facility] Last Admin: 02/10/23 20:47 Dose: 20 mg Documented By: ALEJANDRO Heparin Sodium (Porcine) (Heparin Sodium,Porcine 5,000 Unit/Ml Vial) 5,000 unit SUBCUT Q12H [facility] Last Admin: 02/11/23 00:03 Dose: Not Given Documented By: DOMINGO Non-Admin Reason: Patient Refused Promethazine HCl 6.25 mg/ (Sodium Chloride) 50.25 mls @ 201 mls/hr IV Q4H PRN PRN Reason: Nausea and Vomiting Last Infusion: 02/07/23 18:34 Dose: Infused Documented By: RACHID Erythromycin Lactobionate 250 (mg/ Sodium Chloride) 100 mls @ 100 mls/hr IV Q8H [facility] Last Infusion: 02/11/23 03:28 Dose: Infused Documented By: DOMINGO Lactated Ringer's (Lr) 1,000 mls @ 80 mls/hr IVCONT .[id number] [facility] Last Admin: 02/10/23 20:46 Dose: 80 mls/hr Documented By: ALEJANDRO Potassium Chloride (Potassium Chloride/H20) 10 meq in 100 mls @ 100 mls/hr IV Q1H [facility] Stop: 02/11/23 11:44 Loperamide HCl (Loperamide Hcl 2 Mg Capsule) 2 mg PO BID PRN PRN Reason: loose stool Lorazepam (Lorazepam 1 Mg Tablet) 1 mg PO BID PRN PRN Reason: anxiety Last Admin: 02/11/23 00:15 Dose: 1 mg Documented By: DOMINGO Meclizine HCl (Meclizine Hcl 12.5 Mg Tablet) 12.5 mg PO DAILY PRN PRN Reason: dizziness Metoclopramide HCl (Metoclopramide Hcl 10 Mg/2 Ml Vial) 10 mg IVPUSH Q6H [facility] Last Admin: 02/11/23 02:28 Dose: 10 mg Documented By: DOMINGO Ondansetron HCl (Ondansetron Hcl 4 Mg/2 Ml Vial) 4 mg IVPUSH Q8H PRN PRN Reason: Nausea and Vomiting Last Admin: 02/09/23 23:15 Dose: 4 mg Documented By: CR Oxycodone HCl (Oxycodone Hcl Immed Release 5 Mg Tablet) 2.5 mg PO Q8H PRN PRN Reason: Pain, Mild (Pain Scale 1-3) Last Admin: 02/10/23 22:31 Dose: 2.5 mg Documented By: ALEJANDRO Sodium Chloride (0.9 % Sodium Chloride Flush 3 Ml Syringe) 3 ml IVFLUSH QSHIFT [facility] Last Admin: 02/11/23 00:03 Dose: 3 ml Documented By: DOMINGO Vitamin D (Cholecalciferol (Vitamin D3) 25 Mcg Tablet) 50 mcg PO DAILY [facility] Last Admin: 02/10/23 08:03 Dose: 50 mcg Documented By: RICKEY Labs 02/15/23 05:52 02/15/23 05:52 Labs: Laboratory Results - last 24 hr 02/10/23 02/10/23 02/11/23 07:44 12:14 06:18 Anion Gap 14 14 Estim Creat Clear Calc 93.4 98.9 Estimated GFR > 60 > 60 Random Glucose 70 77 Calcium 8.0 L 8.0 L Stl C. cayetanensis PCR Not Detected Stool Rotavirus A PCR Not Detected Stl Adenov F 40/41 PCR Not Detected Stool Astrovirus (PCR) Not Detected Stool Campylobacter PCR Not Detected Stool Cryptosporidium PCR Not Detected Stl Sh Tox Pr E STEC PCR Not Detected Stool E coli O157 PCR Not applicable Stl Enterotoxigenic E PCR Not Detected Stool EPEC (PCR) Not Detected Stool EAEC (PCR) Not Detected Stl E. histolytica PCR Not Detected Stool Giardia Lamblia PCR Not Detected Stl P. shigelloides PCR Not Detected Stool Salmonella PCR Not Detected Stool Sapovirus (PCR) Not Detected Stl Shigella/EIEC PCR Not Detected St Y.enterocolitica PCR Not Detected Stool Vibrio (PCR) Not Detected Stl Vibrio cholerae PCR Not Detected Stl Norovirus GI/GII PCR Not Detected Procedures Date of Service Date of Service: 02/15/23 Progress Note: A&P Assessment and plan (1) Intractable nausea and vomiting: Status: Acute Assessment and Plan: Appears to have some gastroparesis on small-bowel series Started on erythromycin as promotility agent Denies vomiting overnight Try to advance diet Exam remains benign Time Spent With Patient Time: Total time managing care of this patient today ____ minutes. Quality Stroke Does the patient have a stroke diagnosis?: No VTE Prior VTE?: No VTE Risk Level:: Medical - moderate - high VTE Device Contraindication: Treatment Not Indicated VTE Drug Contraindication: N/A - Med Ordered
[2023-02-11 08:19] LABS: Magnesium 1.3 mg/dL (1.6-2.6)
[2023-02-11] MEDS: Potassium Chloride/H20 10 MEQ/100 ML PIGGYBACK 100 MEQ IV ×4 (09:00→12:17)
[2023-02-11] MEDS: Magnesium Sulfate/H2O 2 GM/50 ML PIGGYBACK IV (09:00)
[2023-02-11] MEDS: Lactated Ringers 1,000 ML 80 ML IVCONT (09:04)
[2023-02-11] MEDS: Potassium Chloride Packet 20 MEQ PACKET 40 MEQ PO ×2 (09:09→17:45)
--- NOTE | 2023-02-11 10:56 | MHC.CLN ---
F/U DIET ADVANCED TO FULL LIQUIDS ON 02/09. DX DELAYED GASTRIC EMPTYING. NAUSEA AND VOMITING IMPROVING. INTAKE X 2 DAYS 10-100% OF FULL LIQUID DIET. RECEIVING IV FLUIDS. CONTINUE TO FOLLOW FOR DIET ADVANCEMENT AND TOLERANCE.
--- NOTE | 2023-02-11 11:56 | MHC.CM.PN ---
Per MD rounds patient is not cleared for discharge. DP home with [facility] of [facility]. She will arrange for a family member to provide transport home.
[2023-02-11] MEDS: oxyCODONE HCl Immed Release 5 MG TABLET 2.5 MG PO (14:06)
[2023-02-11 15:16] VITALS: BP 139/69; PULSE 74; RESP 17; TEMP 36.4; O2SAT 95
--- NOTE | 2023-02-11 16:02 | HO.PM.IMPN ---
Subjective Subjective Date of Service: 02/11/23 Interval History: gasteroparesis Review of Systems nausea and vomiting improving has 1-2 soft bm's last night no abd pain Physical Exam Vital Signs: Vital Signs: Last Vital Signs Temp 97.6 F 02/11/23 15:16 Pulse 74 02/11/23 15:16 Resp 17 02/11/23 15:16 BP 139/69 02/11/23 15:16 Pulse Ox 95 02/11/23 15:16 O2 Del Method Room Air 02/11/23 15:16 BMI result Body Mass Index 21.4 appearance: Alert.? Oriented X3.sitting ,no in distress cvs: rrr, [id number] , no murmur res: clear to auscultation ,no rhonchii or wheezing abd: no rebound or guarding ,nt, bs present. ext pulses present , no cyanosis neuro: nonfocal Objective Data Active Medications Acetaminophen (Acetaminophen 325 Mg Tablet) 650 mg PO Q6H PRN PRN Reason: Pain, Mild (Pain Scale 1-3) Calcium Carbonate (Calcium Carbonate 750 Mg Tab.Chew) 750 mg PO Q6H PRN PRN Reason: Heartburn Last Admin: 02/04/23 22:22 Dose: 750 mg Documented By: EFRAÍN Famotidine (Famotidine 20 Mg Tablet) 20 mg PO BEDTIME [facility] Last Admin: 02/10/23 20:47 Dose: 20 mg Documented By: ALEJANDRO Heparin Sodium (Porcine) (Heparin Sodium,Porcine 5,000 Unit/Ml Vial) 5,000 unit SUBCUT Q12H [facility] Last Admin: 02/11/23 12:17 Dose: Not Given Documented By: KEVIN Non-Admin Reason: Patient Refused Promethazine HCl 6.25 mg/ (Sodium Chloride) 50.25 mls @ 201 mls/hr IV Q4H PRN PRN Reason: Nausea and Vomiting Last Infusion: 02/07/23 18:34 Dose: Infused Documented By: RACHID Erythromycin Lactobionate 250 (mg/ Sodium Chloride) 100 mls @ 100 mls/hr IV Q8H [facility] Last Infusion: 02/11/23 13:28 Dose: Infused Documented By: KEVIN Loperamide HCl (Loperamide Hcl 2 Mg Capsule) 2 mg PO BID PRN PRN Reason: loose stool Lorazepam (Lorazepam 1 Mg Tablet) 1 mg PO BID PRN PRN Reason: anxiety Last Admin: 02/11/23 12:17 Dose: 1 mg Documented By: KEVIN Meclizine HCl (Meclizine Hcl 12.5 Mg Tablet) 12.5 mg PO DAILY PRN PRN Reason: dizziness Metoclopramide HCl (Metoclopramide Hcl 10 Mg/2 Ml Vial) 10 mg IVPUSH Q6H [facility] Last Admin: 02/11/23 14:06 Dose: 10 mg Documented By: KEVIN Ondansetron HCl (Ondansetron Hcl 4 Mg/2 Ml Vial) 4 mg IVPUSH Q8H PRN PRN Reason: Nausea and Vomiting Last Admin: 02/09/23 23:15 Dose: 4 mg Documented By: CR Oxycodone HCl (Oxycodone Hcl Immed Release 5 Mg Tablet) 2.5 mg PO Q8H PRN PRN Reason: Pain, Mild (Pain Scale 1-3) Last Admin: 02/11/23 14:06 Dose: 2.5 mg Documented By: KEVIN Sodium Chloride (0.9 % Sodium Chloride Flush 3 Ml Syringe) 3 ml IVFLUSH QSHIFT [facility] Last Admin: 02/11/23 15:31 Dose: Not Given Documented By: KEVIN Non-Admin Reason: IV Running Vitamin D (Cholecalciferol (Vitamin D3) 25 Mcg Tablet) 50 mcg PO DAILY [facility] Last Admin: 02/11/23 09:12 Dose: Not Given Documented By: KEVIN Non-Admin Reason: Patient Refused Labs 02/06/23 08:47 02/11/23 06:18 Labs: Laboratory Results - last 24 hr 02/11/23 06:18 Anion Gap 14 Estim Creat Clear Calc 98.9 Estimated GFR > 60 Random Glucose 77 Calcium 8.0 L Magnesium 1.3 L* Assessment and Plan (1) Intractable nausea and vomiting: Status: Acute Plan 67-year-old female with history of metastatic squamous cell carcinoma of cervix, renal mass, chronic pain syndrome, chronic anemia, opioid dependence, and rheumatoid arthritis admitted for intractable nausea and vomiting and uncontrolled pain r/t metastatic cervical cancer. 1.Intractable nausea/vomiting w-PCP weaning patient from high dose narcotics ct abd repeat 02/05 noted -ct abd-?Iellus but small bowel series howed -delayed gastric emptying abd pain and nausea somewhat improving seen by oncology-on oxycodone and morphine adjusted ,taper to stop iv dilaudid prn,continue antiemtics , iv hydration,erythromycin says erythomycin helping , her nausea ,vomiting imporving ,starting tolerating someliquid diet. Gi follow -continue above management. will try advance diet futher diet. 2.Acute hypokalemia and hypomagnesmia improivng but k:2.6 added po potassium and poatssium,added iv mangensium moniter bmp closely 3.Metastatic cervical cancer-as per Oncology. 4.RA/chronic pain syndrome -Pain management as above -Resume PO as tolerated 5.Mood disorder -continue lorazepam -has not been taking sertraline in 3m due to above sx. Consider resuming at lower dose as tolerated DVT prophylaxis- heparin DNR/DNI ongoing hospitalization: multiple electrolytic abnormalities-need arm electrolyte repletion and close monitoring of electrolytes and renal function Quality Stroke Does the patient have a stroke diagnosis?: No VTE Prior VTE?: No VTE Risk Level:: Medical - moderate - high VTE Device Contraindication: Treatment Not Indicated VTE Drug Contraindication: N/A - Med Ordered
[2023-02-11 19:08] VITALS: BP 142/71; PULSE 82; RESP 17; TEMP 37.2; O2SAT 94
[2023-02-12] MEDS: LORazepam 1 MG TABLET PO ×2 (00:36→13:27)
[2023-02-12] MEDS: oxyCODONE HCl Immed Release 5 MG TABLET 2.5 MG PO ×3 (01:40→21:39)
[2023-02-12 04:00] VITALS: BP 127/60; PULSE 70; RESP 16; TEMP 36; O2SAT 93
[2023-02-12] MEDS: Metoclopramide HCl 10 MG/2 ML VIAL IVPUSH ×4 (04:25→20:23)
[2023-02-12] MEDS: Erythromycin Lactobionate 250 MG in 0.9 % Sodium Chloride 100 ML 100 MG IV ×2 (04:28→12:18)
[2023-02-12 07:55] VITALS: BP 138/61; PULSE 72; RESP 16; TEMP 37.1; O2SAT 93
[2023-02-12 08:00] VITALS: PULSE 72
[2023-02-12 09:01] LABS: Anion Gap 12 (12-20); Blood Urea Nitrogen < 3 mg/dL (9-16); Calcium 7.6 mg/dL (8.4-10.2); Carbon Dioxide 23 mmol/L (22-29); Chloride 101 mmol/L (96-108); Creatinine Clr Calc Pharmacy 109.7; Estimated Glomerular Filt Rate > 60; Glucose Random 71 mg/dL (60-115); Magnesium 1.5 mg/dL (1.6-2.6); Potassium 2.4 mmol/L (3.3-5.1); Sodium 134 mmol/L (135-145)
[2023-02-12 09:15] LABS: Phosphorus 2.5 mg/dL (2.7-4.5)
[2023-02-12] MEDS: Potassium Chloride ER 20 MEQ TAB.ER.PRT PO ×2 (10:14→10:15)
[2023-02-12] MEDS: Cholecalciferol (Vitamin D3) 25 MCG TABLET 50 MCG PO (10:15)
[2023-02-12] MEDS: Potassium Chloride/H20 10 MEQ/100 ML PIGGYBACK 100 MEQ IV ×4 (10:15→13:47)
--- NOTE | 2023-02-12 11:45 | P.PNIM_ITS ---
Subjective Subjective Date of Service: 02/13/23 Interval History: Multiple electrolytic abnormalities. Review of Systems abd pain seems improving also no nausea pas itsing bm's Physical Exam 2 Vital Signs: Vital Signs: Last Vital Signs Temp 98.7 F 02/12/23 07:55 Pulse 72 02/12/23 07:55 Resp 16 02/12/23 07:55 BP 138/61 02/12/23 07:55 Pulse Ox 93 02/12/23 07:55 O2 Del Method Room Air 02/12/23 07:55 BMI result Body Mass Index 21.4 appearance: Alert.? Oriented X3.sitting ,no in distress cvs: rrr, [id number] , no murmur res: clear to auscultation ,no rhonchii or wheezing abd: no rebound or guarding ,nt, bs present. ext pulses present , no cyanosis neuro: nonfocal Objective Data Active Medications Acetaminophen (Acetaminophen 325 Mg Tablet) 650 mg PO Q6H PRN PRN Reason: Pain, Mild (Pain Scale 1-3) Calcium Carbonate (Calcium Carbonate 750 Mg Tab.Chew) 750 mg PO Q6H PRN PRN Reason: Heartburn Last Admin: 02/04/23 22:22 Dose: 750 mg Documented By: EFRAÍN Famotidine (Famotidine 20 Mg Tablet) 20 mg PO BEDTIME [facility] Last Admin: 02/11/23 21:18 Dose: Not Given Documented By: MAYELA Non-Admin Reason: Nausea Heparin Sodium (Porcine) (Heparin Sodium,Porcine 5,000 Unit/Ml Vial) 5,000 unit SUBCUT Q12H [facility] Last Admin: 02/12/23 00:36 Dose: Not Given Documented By: MAYELA Non-Admin Reason: Patient Refused Promethazine HCl 6.25 mg/ (Sodium Chloride) 50.25 mls @ 201 mls/hr IV Q4H PRN PRN Reason: Nausea and Vomiting Last Infusion: 02/07/23 18:34 Dose: Infused Documented By: RACHID Erythromycin Lactobionate 250 (mg/ Sodium Chloride) 100 mls @ 100 mls/hr IV Q8H [facility] Last Infusion: 02/12/23 05:43 Dose: Infused Documented By: MAYELA Potassium Chloride (Potassium Chloride/H20) 10 meq in 100 mls @ 100 mls/hr IV Q1H [facility] Stop: 02/12/23 13:14 Last Admin: 02/12/23 11:31 Dose: 100 mls/hr Documented By: GM Loperamide HCl (Loperamide Hcl 2 Mg Capsule) 2 mg PO BID PRN PRN Reason: loose stool Meclizine HCl (Meclizine Hcl 12.5 Mg Tablet) 12.5 mg PO DAILY PRN PRN Reason: dizziness Metoclopramide HCl (Metoclopramide Hcl 10 Mg/2 Ml Vial) 10 mg IVPUSH Q6H [facility] Last Admin: 02/12/23 10:14 Dose: 10 mg Documented By: GM Ondansetron HCl (Ondansetron Hcl 4 Mg/2 Ml Vial) 4 mg IVPUSH Q8H PRN PRN Reason: Nausea and Vomiting Last Admin: 02/09/23 23:15 Dose: 4 mg Documented By: CR Oxycodone HCl (Oxycodone Hcl Immed Release 5 Mg Tablet) 2.5 mg PO Q8H PRN PRN Reason: Pain, Mild (Pain Scale 1-3) Last Admin: 02/12/23 01:40 Dose: 2.5 mg Documented By: MAYELA Sodium Chloride (0.9 % Sodium Chloride Flush 3 Ml Syringe) 3 ml IVFLUSH QSHIFT [facility] Last Admin: 02/12/23 10:16 Dose: Not Given Documented By: GM Non-Admin Reason: Unable to Scan Barcode Vitamin D (Cholecalciferol (Vitamin D3) 25 Mcg Tablet) 50 mcg PO DAILY [facility] Last Admin: 02/12/23 10:15 Dose: 50 mcg Documented By: GM Labs 02/06/23 08:47 02/13/23 06:41 Labs: Laboratory Results - last 24 hr 02/12/23 08:22 Anion Gap 12 Estim Creat Clear Calc 109.7 Estimated GFR > 60 Random Glucose 71 Calcium 7.6 L Phosphorus 2.5 L Magnesium 1.5 L Assessment and Plan (1) Delayed gastric emptying: Status: Acute (2) Hypokalemia: Status: Acute Plan 67-year-old female with history of metastatic squamous cell carcinoma of cervix, renal mass, chronic pain syndrome, chronic anemia, opioid dependence, and rheumatoid arthritis admitted for intractable nausea and vomiting and uncontrolled pain r/t metastatic cervical cancer. 1.Intractable nausea/vomiting w-PCP weaning patient from high dose narcotics ct abd repeat 02/05 noted -ct abd-?Iellus but small bowel series howed - delayed gastric emptying abd pain and nausea somewhat improving seen by oncology-on oxycodone and morphine adjusted ,taper to stop iv dilaudid prn,continue antiemtics , iverythromycin says erythomycin helping , her nausea ,vomiting imporving ,starting tolerating someliquid diet but has soft bm ,if has diarrhae need to hold erythromycin advance diet futher diet. gi and surgery following 2.Acute hypokalemia and hypomagnesmia improivng but k:2.4 added po potassium and poatssium,added iv mangensium moniter bmp closely 3.Metastatic cervical cancer-as per Oncology. 4.RA/chronic pain syndrome -Pain management as above -Resume PO as tolerated 5.Mood disorder -continue lorazepam -has not been taking sertraline in 3m due to above sx. Consider resuming at lower dose as tolerated DVT prophylaxis- heparin DNR/DNI ongoing hospitalization: multiple electrolytic abnormalities-need arm electrolyte repletion and close monitoring of electrolytes and renal functiond pain r/t metastatic cervical cancer. 1.Intractable nausea/vomiting w-PCP weaning patient from high dose narcotics ct abd repeat 02/05 noted -ct abd-?Iellus but small bowel series howed - delayed gastric emptying abd pain and nausea somewhat improving seen by oncology-on oxycodone and morphine adjusted ,taper to stop iv dilaudid prn,continue antiemtics , iv hydration,erythromycin says erythomycin helping , her nausea ,vomiting imporving ,starting tolerating someliquid diet. Gi follow -continue above management. will try advance diet futher diet. 2.Acute hypokalemia and hypomagnesmia improivng but k:2.6 added po potassium and poatssium,added iv mangensium moniter bmp closely 3.Metastatic cervical cancer-as per Oncology. 4.RA/chronic pain syndrome -Pain management as above -Resume PO as tolerated 5.Mood disorder -continue lorazepam -has not been taking sertraline in 3m due to above sx. Consider resuming at lower dose as tolerated DVT prophylaxis- heparin DNR/DNI ongoing hospitalization: multiple electrolytic abnormalities-need arm electrolyte repletion and close monitoring of electrolytes and renal function Quality Stroke Does the patient have a stroke diagnosis?: No VTE Prior VTE?: No VTE Risk Level:: Medical - moderate - high VTE Device Contraindication: Treatment Not Indicated VTE Drug Contraindication: N/A - Med Ordered
[2023-02-12] MEDS: Sodium,Potassium Phosphates POWD.PACK 1 PACKET PO ×3 (12:18→20:25)
[2023-02-12] MEDS: Magnesium Sulfate/D5W 1 GM/100 ML PIGGYBACK IV (13:09)
--- NOTE | 2023-02-12 14:42 | PM.PNGS ---
Subjective Subjective Date of Service: 02/12/23 Interval history: Tolerating regular food now Has diarrhea Asks for narcotics Physical Exam Vital Signs: Vital Signs: Last Vital Signs Temp 98.7 F 02/12/23 07:55 Pulse 72 02/12/23 07:55 Resp 16 02/12/23 07:55 BP 138/61 02/12/23 07:55 Pulse Ox 93 02/12/23 07:55 O2 Del Method Room Air 02/12/23 07:55 BMI result Body Mass Index 21.4 Const: General: comfortable and no acute distress Resp: Effort & Inspection: normal respiratory effort Cardio: Rate: regular rate GI: Palpation (GI): Soft to palpation, not firm, nontender and no guarding Objective Data Active Medications Acetaminophen (Acetaminophen 325 Mg Tablet) 650 mg PO Q6H PRN PRN Reason: Pain, Mild (Pain Scale 1-3) Calcium Carbonate (Calcium Carbonate 750 Mg Tab.Chew) 750 mg PO Q6H PRN PRN Reason: Heartburn Last Admin: 02/04/23 22:22 Dose: 750 mg Documented By: EFRAÍN Famotidine (Famotidine 20 Mg Tablet) 20 mg PO BEDTIME [facility] Last Admin: 02/11/23 21:18 Dose: Not Given Documented By: MAYELA Non-Admin Reason: Nausea Heparin Sodium (Porcine) (Heparin Sodium,Porcine 5,000 Unit/Ml Vial) 5,000 unit SUBCUT Q12H [facility] Last Admin: 02/12/23 12:44 Dose: Not Given Documented By: GM Non-Admin Reason: Patient Refused Promethazine HCl 6.25 mg/ (Sodium Chloride) 50.25 mls @ 201 mls/hr IV Q4H PRN PRN Reason: Nausea and Vomiting Last Infusion: 02/07/23 18:34 Dose: Infused Documented By: RACHID Erythromycin Lactobionate 250 (mg/ Sodium Chloride) 100 mls @ 100 mls/hr IV Q8H [facility] Last Infusion: 02/12/23 13:33 Dose: 100 mls/hr Documented By: GM Loperamide HCl (Loperamide Hcl 2 Mg Capsule) 2 mg PO BID PRN PRN Reason: loose stool Lorazepam (Lorazepam 1 Mg Tablet) 1 mg PO DAILY PRN PRN Reason: anxiety Last Admin: 02/12/23 13:27 Dose: 1 mg Documented By: GM Meclizine HCl (Meclizine Hcl 12.5 Mg Tablet) 12.5 mg PO DAILY PRN PRN Reason: dizziness Metoclopramide HCl (Metoclopramide Hcl 10 Mg/2 Ml Vial) 10 mg IVPUSH Q6H [facility] Last Admin: 02/12/23 10:14 Dose: 10 mg Documented By: GM Ondansetron HCl (Ondansetron Hcl 4 Mg/2 Ml Vial) 4 mg IVPUSH Q8H PRN PRN Reason: Nausea and Vomiting Last Admin: 02/09/23 23:15 Dose: 4 mg Documented By: CR Oxycodone HCl (Oxycodone Hcl Immed Release 5 Mg Tablet) 2.5 mg PO Q8H PRN PRN Reason: Pain, Mild (Pain Scale 1-3) Last Admin: 02/12/23 13:26 Dose: 2.5 mg Documented By: GM Potassium Phos/Sodium Phos (Sodium,Potassium Phosphates Powd.Pack) 1 packet PO QID [facility] Last Admin: 02/12/23 12:18 Dose: 1 packet Documented By: GM Sodium Chloride (0.9 % Sodium Chloride Flush 3 Ml Syringe) 3 ml IVFLUSH QSHIFT [facility] Last Admin: 02/12/23 10:16 Dose: Not Given Documented By: GM Non-Admin Reason: Unable to Scan Barcode Vitamin D (Cholecalciferol (Vitamin D3) 25 Mcg Tablet) 50 mcg PO DAILY [facility] Last Admin: 02/12/23 10:15 Dose: 50 mcg Documented By: GM Labs 02/06/23 08:47 02/12/23 08:22 Labs: Laboratory Results - last 24 hr 02/12/23 08:22 Anion Gap 12 Estim Creat Clear Calc 109.7 Estimated GFR > 60 Random Glucose 71 Calcium 7.6 L Phosphorus 2.5 L Magnesium 1.5 L Procedures Date of Service Date of Service: 02/12/23 Progress Note: A&P Assessment and plan (1) Delayed gastric emptying: Status: Acute Assessment and Plan: Had been started on erythromycin as promotility agent Tolerating diet Describes diarrhea Abdomen remained soft and benign Replace potassium Rest of care as per hospitalist Time Spent With Patient Time: Total time managing care of this patient today ____ minutes. Quality Stroke Does the patient have a stroke diagnosis?: No VTE Prior VTE?: No VTE Risk Level:: Medical - moderate - high VTE Device Contraindication: Treatment Not Indicated VTE Drug Contraindication: N/A - Med Ordered
[2023-02-12 16:00] VITALS: PULSE 76
[2023-02-12] MEDS: 0.9 % Sodium Chloride Flush 3 ML SYRINGE IVFLUSH ×2 (16:07→20:22)
[2023-02-12 20:00] VITALS: BP 159/90; PULSE 82; RESP 18; TEMP 36.2; O2SAT 95
[2023-02-12] MEDS: Potassium Chloride Packet 20 MEQ PACKET 40 MEQ PO (20:26)
[2023-02-12 20:57] LABS: Potassium 2.8 mmol/L (3.3-5.1)
[2023-02-13] MEDS: LORazepam 1 MG TABLET PO ×4 (00:14→23:35)
[2023-02-13] MEDS: Erythromycin Lactobionate 250 MG in 0.9 % Sodium Chloride 100 ML 100 MG IV ×2 (00:30→10:19)
[2023-02-13 04:00] VITALS: BP 137/64; PULSE 66; RESP 14; TEMP 36.1; O2SAT 94
[2023-02-13 07:07] VITALS: BP 126/70; PULSE 63; RESP 18; TEMP 36; O2SAT 94
[2023-02-13 07:21] LABS: Anion Gap 10 (12-20); Blood Urea Nitrogen < 3 mg/dL (9-16); Calcium 7.7 mg/dL (8.4-10.2); Carbon Dioxide 26 mmol/L (22-29); Chloride 103 mmol/L (96-108); Creatinine Clr Calc Pharmacy 102.9; Estimated Glomerular Filt Rate > 60; Glucose Random 84 mg/dL (60-115); Magnesium 1.7 mg/dL (1.6-2.6); Potassium 2.7 mmol/L (3.3-5.1); Sodium 136 mmol/L (135-145)
[2023-02-13 08:00] VITALS: PULSE 75
[2023-02-13] MEDS: Potassium Chloride Packet 20 MEQ PACKET 40 MEQ PO (08:25)
[2023-02-13] MEDS: Magnesium Oxide 400 MG TABLET PO ×2 (08:25→15:59)
[2023-02-13] MEDS: Cholecalciferol (Vitamin D3) 25 MCG TABLET 50 MCG PO (08:25)
[2023-02-13] MEDS: Sodium,Potassium Phosphates POWD.PACK 1 PACKET PO ×4 (08:25→21:03)
[2023-02-13] MEDS: Metoclopramide HCl 10 MG/2 ML VIAL IVPUSH ×3 (08:25→21:02)
[2023-02-13] MEDS: 0.9 % Sodium Chloride Flush 3 ML SYRINGE IVFLUSH ×3 (08:26→21:03)
[2023-02-13] MEDS: Potassium Chloride/H20 10 MEQ/100 ML PIGGYBACK 100 MEQ IV ×4 (08:26→13:32)
[2023-02-13] MEDS: Magnesium Sulfate/H2O 2 GM/50 ML PIGGYBACK IV (09:34)
[2023-02-13] MEDS: oxyCODONE HCl Immed Release 5 MG TABLET 2.5 MG PO ×2 (10:19→17:36)
--- NOTE | 2023-02-13 10:45 | MHC.CLN ---
F/U DIET ADVANCED TO REGULAR ON 02/12. CONTINUES WITH LOOSE STOOL. NO EMESIS NOTED. INTAKE VARIABLE, 0-75%. CONTINUE TO FOLLOW FOR INTAKE AND DIET TOLERANCE.
--- NOTE | 2023-02-13 11:09 | P.PNIM_ITS ---
Subjective Subjective Date of Service: 02/13/23 Interval History: watery diarrhea, nausea, Physical Exam 2 Vital Signs: Vital Signs: Last Vital Signs Temp 96.8 F 02/13/23 07:07 Pulse 63 02/13/23 07:07 Resp 18 02/13/23 07:07 BP 126/70 02/13/23 07:07 Pulse Ox 94 02/13/23 07:07 O2 Del Method Room Air 02/13/23 07:07 BMI result Body Mass Index 21.4 Const: General: comfortable and no acute distress Resp: Effort & Inspection: normal respiratory effort Cardio: Rate: regular rate GI: Palpation (GI): Soft to palpation, not firm, nontender and no guarding Objective Data Active Medications Acetaminophen (Acetaminophen 325 Mg Tablet) 650 mg PO Q6H PRN PRN Reason: Pain, Mild (Pain Scale 1-3) Calcium Carbonate (Calcium Carbonate 750 Mg Tab.Chew) 750 mg PO Q6H PRN PRN Reason: Heartburn Last Admin: 02/04/23 22:22 Dose: 750 mg Documented By: EFRAÍN Famotidine (Famotidine 20 Mg Tablet) 20 mg PO BEDTIME [facility] Last Admin: 02/12/23 20:28 Dose: Not Given Documented By: MAYELA Non-Admin Reason: Patient Refused Heparin Sodium (Porcine) (Heparin Sodium,Porcine 5,000 Unit/Ml Vial) 5,000 unit SUBCUT Q12H [facility] Last Admin: 02/13/23 00:15 Dose: Not Given Documented By: MAYELA Non-Admin Reason: Patient Refused Promethazine HCl 6.25 mg/ (Sodium Chloride) 50.25 mls @ 201 mls/hr IV Q4H PRN PRN Reason: Nausea and Vomiting Last Infusion: 02/07/23 18:34 Dose: Infused Documented By: RACHID Erythromycin Lactobionate 250 (mg/ Sodium Chloride) 100 mls @ 100 mls/hr IV Q8H [facility] Last Admin: 02/13/23 10:19 Dose: 100 mls/hr Documented By: JUJU Potassium Chloride (Potassium Chloride/H20) 10 meq in 100 mls @ 100 mls/hr IV Q1H [facility] Stop: 02/13/23 12:14 Last Admin: 02/13/23 10:19 Dose: 100 mls/hr Documented By: JUJU Loperamide HCl (Loperamide Hcl 2 Mg Capsule) 2 mg PO BID PRN PRN Reason: loose stool Lorazepam (Lorazepam 1 Mg Tablet) 1 mg PO Q6H PRN PRN Reason: anxiety Magnesium Oxide (Magnesium Oxide 400 Mg Tablet) 400 mg PO BIDPC [facility] Last Admin: 02/13/23 08:25 Dose: 400 mg Documented By: JUJU Meclizine HCl (Meclizine Hcl 12.5 Mg Tablet) 12.5 mg PO DAILY PRN PRN Reason: dizziness Metoclopramide HCl (Metoclopramide Hcl 10 Mg/2 Ml Vial) 10 mg IVPUSH Q6H [facility] Last Admin: 02/13/23 08:25 Dose: 10 mg Documented By: JUJU Ondansetron HCl (Ondansetron Hcl 4 Mg/2 Ml Vial) 4 mg IVPUSH Q8H PRN PRN Reason: Nausea and Vomiting Last Admin: 02/09/23 23:15 Dose: 4 mg Documented By: CR Oxycodone HCl (Oxycodone Hcl Immed Release 5 Mg Tablet) 2.5 mg PO Q8H PRN PRN Reason: Pain, Mild (Pain Scale 1-3) Last Admin: 02/13/23 10:19 Dose: 2.5 mg Documented By: JUJU Potassium Phos/Sodium Phos (Sodium,Potassium Phosphates Powd.Pack) 1 packet PO QID [facility] Last Admin: 02/13/23 08:25 Dose: 1 packet Documented By: JUJU Sodium Chloride (0.9 % Sodium Chloride Flush 3 Ml Syringe) 3 ml IVFLUSH QSHIFT [facility] Last Admin: 02/13/23 08:26 Dose: 3 ml Documented By: JUJU Vitamin D (Cholecalciferol (Vitamin D3) 25 Mcg Tablet) 50 mcg PO DAILY [facility] Last Admin: 02/13/23 08:25 Dose: 50 mcg Documented By: JUJU Labs 02/06/23 08:47 02/13/23 06:41 Labs: Laboratory Results - last 24 hr 02/13/23 06:41 Hold Purple Top SEE NOTE Anion Gap 10 L Estim Creat Clear Calc 102.9 Estimated GFR > 60 Random Glucose 84 Calcium 7.7 L Magnesium 1.7 Assessment and Plan (1) Intractable nausea and vomiting: Status: Acute Plan 67F PMH metastatic squamous cell carcinoma of cervix, renal mass, chronic pain syndrome, chronic anemia, opioid dependence, and rheumatoid arthritis admitted for intractable nausea and vomiting and uncontrolled pain r/t metastatic cervical cancer. Intractable nausea/vomiting w-PCP weaning patient from high dose narcotics ct abd repeat 02/05 noted -ct abd-?Iellus but small bowel series howed - delayed gastric emptying given erythromycin, now with watery diarrhea, will hold now on oxy 2.5 q8 prn Acute hypokalemia and hypomagnesmia replace and monitor Metastatic cervical cancer-as per Oncology. RA/chronic pain syndrome Pain management as above Mood disorder continue lorazepam DVT prophylaxis- heparin DNR/DNI reason for continued hospitalization:severe electrolyte abnormalities Quality Stroke Does the patient have a stroke diagnosis?: No VTE Prior VTE?: No VTE Risk Level:: Medical - moderate - high VTE Device Contraindication: Treatment Not Indicated VTE Drug Contraindication: N/A - Med Ordered
--- NOTE | 2023-02-13 11:54 | MHC.CM.PN ---
Per MD rounds no discharge today. Diet advanced yesterday. DP home with resumption of [employer] services. Family will transport home.
[2023-02-13] MEDS: Heparin Sodium,Porcine 5,000 UNIT/ML VIAL 5000 UNIT SUBCUT (13:32)
[2023-02-13 15:49] VITALS: BP 150/58; PULSE 78; RESP 18; TEMP 36.1; O2SAT 95
[2023-02-13 20:00] VITALS: BP 135/74; PULSE 73; RESP 18; TEMP 36.4; O2SAT 95
[2023-02-13] MEDS: Famotidine 20 MG TABLET PO (21:03)
[2023-02-13] MEDS: Loperamide HCl 2 MG CAPSULE PO (21:19)
[2023-02-14] MEDS: oxyCODONE HCl Immed Release 5 MG TABLET 2.5 MG PO ×3 (01:00→17:12)
[2023-02-14] MEDS: Metoclopramide HCl 10 MG/2 ML VIAL IVPUSH ×4 (03:23→21:16)
[2023-02-14 04:00] VITALS: BP 142/67; PULSE 82; RESP 14; TEMP 36; O2SAT 95
[2023-02-14 07:15] VITALS: BP 139/73; PULSE 64; RESP 16; TEMP 36.2; O2SAT 95
[2023-02-14 07:45] LABS: Hematocrit 34.5 % (37.0-47.0); Hemoglobin 11.4 g/dl (12.0-16.0); Mean Corpuscular Volume 81.6 fL (80.0-98.0); Mean Platelet Volume 9.7 fL (9.4-12.3); Platelet Count 327 X10*3/uL (160-400); Red Blood Count 4.23 X10*6/uL (4.20-5.50); White Blood Count 8.7 X10*3/uL (4.8-10.8)
[2023-02-14 07:46] LABS: Alanine Aminotransferase 10 U/L (0-31); Albumin Level 2.8 g/dL (3.5-5.0); Alkaline Phosphatase 139 U/L (39-117); Anion Gap 10 (12-20); Aspartate Amino Transferase 23 U/L (5-31); Bilirubin Direct 0.2 mg/dL (0.0-0.5); Bilirubin Total 0.3 mg/dL (0.0-1.0); Blood Urea Nitrogen < 3 mg/dL (9-16); Calcium 7.9 mg/dL (8.4-10.2); Carbon Dioxide 25 mmol/L (22-29); Chloride 104 mmol/L (96-108); Estimated Glomerular Filt Rate > 60; Glucose Fasting 69 mg/dL (60-99); Magnesium 1.9 mg/dL (1.6-2.6); Phosphorus 2.9 mg/dL (2.7-4.5); Potassium 3.4 mmol/L (3.3-5.1); Sodium 136 mmol/L (135-145); Total Protein 5.5 g/dL (6.5-8.0)
[2023-02-14] MEDS: Potassium Chloride ER 20 MEQ TAB.ER.PRT 40 MEQ PO (08:41)
[2023-02-14] MEDS: Loperamide HCl 2 MG CAPSULE PO (08:41)
[2023-02-14] MEDS: Sodium,Potassium Phosphates POWD.PACK 1 PACKET PO ×3 (08:41→17:11)
[2023-02-14] MEDS: LORazepam 1 MG TABLET PO ×2 (08:41→17:11)
[2023-02-14] MEDS: 0.9 % Sodium Chloride Flush 3 ML SYRINGE IVFLUSH ×3 (08:41→21:19)
[2023-02-14] MEDS: Cholecalciferol (Vitamin D3) 25 MCG TABLET 50 MCG PO (08:41)
[2023-02-14] MEDS: Magnesium Oxide 400 MG TABLET PO ×2 (08:41→17:13)
--- NOTE | 2023-02-14 09:34 | MHC.CM.PN ---
IMM 02/14/23 Medicare rights explained to patient in detail. DP home with resumption of [employer]. She will arrange for family to provide transport at discharge.
--- NOTE | 2023-02-14 09:40 | HO.PM.IMPN ---
Subjective Subjective Date of Service: 02/14/23 Interval History: diarrhea improved, nausea improved Physical Exam Vital Signs: Vital Signs: Last Vital Signs Temp 97.1 F 02/14/23 07:15 Pulse 64 02/14/23 07:15 Resp 16 02/14/23 07:15 BP 139/73 02/14/23 07:15 Pulse Ox 95 02/14/23 07:15 O2 Del Method Room Air 02/14/23 07:15 BMI result Body Mass Index 21.4 Const: General: comfortable and no acute distress Resp: Effort & Inspection: normal respiratory effort Cardio: Rate: regular rate GI: Palpation (GI): Soft to palpation, not firm, nontender and no guarding Objective Data Active Medications Acetaminophen (Acetaminophen 325 Mg Tablet) 650 mg PO Q6H PRN PRN Reason: Pain, Mild (Pain Scale 1-3) Calcium Carbonate (Calcium Carbonate 750 Mg Tab.Chew) 750 mg PO Q6H PRN PRN Reason: Heartburn Last Admin: 02/04/23 22:22 Dose: 750 mg Documented By: EFRAÍN Famotidine (Famotidine 20 Mg Tablet) 20 mg PO BEDTIME [facility] Last Admin: 02/13/23 21:03 Dose: 20 mg Documented By: EFRAÍN Heparin Sodium (Porcine) (Heparin Sodium,Porcine 5,000 Unit/Ml Vial) 5,000 unit SUBCUT Q12H [facility] Last Admin: 02/14/23 00:08 Dose: Not Given Documented By: EFRAÍN Non-Admin Reason: Patient Refused Promethazine HCl 6.25 mg/ (Sodium Chloride) 50.25 mls @ 201 mls/hr IV Q4H PRN PRN Reason: Nausea and Vomiting Last Infusion: 02/07/23 18:34 Dose: Infused Documented By: RACHID Loperamide HCl (Loperamide Hcl 2 Mg Capsule) 2 mg PO BID PRN PRN Reason: loose stool Last Admin: 02/14/23 08:41 Dose: 2 mg Documented By: JUJU Lorazepam (Lorazepam 1 Mg Tablet) 1 mg PO Q6H PRN PRN Reason: anxiety Last Admin: 02/14/23 08:41 Dose: 1 mg Documented By: JUJU [facility] ([facility] 400 Mg [facility] Last Admin: 02/14/23 08:41 Dose: 400 mg Documented By: JUJU Meclizine HCl (Meclizine Hcl 12.5 Mg Tablet) 12.5 mg PO DAILY PRN PRN Reason: dizziness Metoclopramide HCl (Metoclopramide Hcl 10 Mg/2 Ml Vial) 10 mg IVPUSH Q6H [facility] Last Admin: 02/14/23 08:41 Dose: 10 mg Documented By: JUJU Ondansetron HCl (Ondansetron Hcl 4 Mg/2 Ml Vial) 4 mg IVPUSH Q8H PRN PRN Reason: Nausea and Vomiting Last Admin: 02/09/23 23:15 Dose: 4 mg Documented By: CR Potassium Phos/Sodium Phos (Sodium,Potassium Phosphates Powd.Pack) 1 packet PO QID [facility] Last Admin: 02/14/23 08:41 Dose: 1 packet Documented By: JUJU Sodium Chloride (0.9 % Sodium Chloride Flush 3 Ml Syringe) 3 ml IVFLUSH QSHIFT [facility] Last Admin: 02/14/23 08:41 Dose: 3 ml Documented By: JUJU Vitamin D (Cholecalciferol (Vitamin D3) 25 Mcg Tablet) 50 mcg PO DAILY [facility] Last Admin: 02/14/23 08:41 Dose: 50 mcg Documented By: JUJU Labs 02/14/23 05:58 02/14/23 05:58 Labs: Laboratory Results - last 24 hr 02/14/23 05:58 MCV 81.6 MCH 27.0 MCHC 33.0 RDW 15.0 Plt Count 327 MPV 9.7 Absolute Nucleated RBC 0.000 Nucleated RBC % (auto) 0.0 Anion Gap 10 L Estim Creat Clear Calc 97.0 Estimated GFR > 60 Fasting Glucose 69 Calcium 7.9 L Phosphorus 2.9 Magnesium 1.9 Total Bilirubin 0.3 Direct Bilirubin 0.2 AST 23 ALT 10 Alkaline Phosphatase 139 H Total Protein 5.5 L Albumin 2.8 L Assessment and Plan (1) Intractable nausea and vomiting: Status: Acute Plan 67F PMH metastatic squamous cell carcinoma of cervix, renal mass, chronic pain syndrome, chronic anemia, opioid dependence, and rheumatoid arthritis admitted for intractable nausea and vomiting and uncontrolled pain r/t metastatic cervical cancer. Intractable nausea/vomiting w-PCP weaning patient from high dose narcotics ct abd repeat 02/05 noted -ct abd-?Iellus but small bowel series howed -delayed gastric emptying given erythromycin, now with watery diarrhea, held, diarrhea improved now on oxy 2.5 q8 prn Acute hypokalemia and hypomagnesmia imprvoing, continue to replace and monitor Metastatic cervical cancer-as per Oncology. RA/chronic pain syndrome Pain management as above Mood disorder continue lorazepam DVT prophylaxis- heparin DNR/DNI reason for continued hospitalization: electrolyte abnormalities, still with nausea, not fully tolerating solids Quality Stroke Does the patient have a stroke diagnosis?: No VTE Prior VTE?: No VTE Risk Level:: Medical - moderate - high VTE Device Contraindication: Treatment Not Indicated VTE Drug Contraindication: N/A - Med Ordered
[2023-02-14] MEDS: Heparin Sodium,Porcine 5,000 UNIT/ML VIAL 5000 UNIT SUBCUT (12:12)
[2023-02-14 15:16] VITALS: BP 143/77; PULSE 83; RESP 17; TEMP 36.9; O2SAT 95
[2023-02-14 19:31] VITALS: BP 136/68; PULSE 77; RESP 18; TEMP 36.3; O2SAT 95
[2023-02-14] MEDS: HYDROmorphone HCl 1 MG/ML SYRINGE IVPUSH (21:36)
[2023-02-15 03:43] VITALS: BP 146/78; PULSE 71; RESP 18; TEMP 36.2; O2SAT 94
[2023-02-15] MEDS: Metoclopramide HCl 10 MG/2 ML VIAL IVPUSH ×4 (03:52→22:11)
[2023-02-15] MEDS: LORazepam 1 MG TABLET PO ×3 (03:56→20:08)
[2023-02-15] MEDS: oxyCODONE HCl Immed Release 5 MG TABLET 2.5 MG PO (03:57)
[2023-02-15 06:25] LABS: Hematocrit 33.6 % (37.0-47.0); Hemoglobin 11.2 g/dl (12.0-16.0); Mean Corpuscular HGB Conc 33.3 g/dl (31.0-35.0); Mean Corpuscular Hemoglobin 27.3 pg (27.0-33.0); Mean Platelet Volume 9.3 fL (9.4-12.3); Platelet Count 278 X10*3/uL (160-400); Red Cell Distribution Width 14.9 % (11.0-16.0); White Blood Count 7.2 X10*3/uL (4.8-10.8)
[2023-02-15 06:39] LABS: Anion Gap 12 (12-20); Blood Urea Nitrogen 5 mg/dL (9-16); Calcium 8.1 mg/dL (8.4-10.2); Carbon Dioxide 26 mmol/L (22-29); Chloride 103 mmol/L (96-108); Creatinine Clr Calc Pharmacy 91.7; Estimated Glomerular Filt Rate > 60; Glucose Fasting 78 mg/dL (60-99); Magnesium 1.9 mg/dL (1.6-2.6); Potassium 3.1 mmol/L (3.3-5.1); Sodium 138 mmol/L (135-145)
[2023-02-15 07:37] VITALS: BP 140/95; PULSE 67; RESP 16; TEMP 36.4; O2SAT 96
[2023-02-15] MEDS: Sodium,Potassium Phosphates POWD.PACK 1 PACKET PO ×4 (08:29→22:12)
[2023-02-15] MEDS: Magnesium Oxide 400 MG TABLET PO ×2 (08:30→16:16)
[2023-02-15] MEDS: Potassium Chloride ER 20 MEQ TAB.ER.PRT 40 MEQ PO (08:30)
[2023-02-15] MEDS: Cholecalciferol (Vitamin D3) 25 MCG TABLET 50 MCG PO (08:30)
[2023-02-15] MEDS: 0.9 % Sodium Chloride Flush 3 ML SYRINGE IVFLUSH ×3 (08:34→22:12)
--- NOTE | 2023-02-15 10:40 | HO.PM.IMPN ---
Subjective Subjective Date of Service: 02/15/23 Interval History: poor appetite Physical Exam Vital Signs: Vital Signs: Last Vital Signs Temp 97.6 F 02/15/23 07:37 Pulse 67 02/15/23 07:37 Resp 16 02/15/23 07:37 BP 140/95 H 02/15/23 07:37 Pulse Ox 96 02/15/23 07:37 O2 Del Method Room Air 02/15/23 07:37 BMI result Body Mass Index 21.4 Const: General: comfortable and no acute distress Resp: Effort & Inspection: normal respiratory effort Cardio: Rate: regular rate GI: Palpation (GI): Soft to palpation, not firm, nontender and no guarding Objective Data Active Medications Acetaminophen (Acetaminophen 325 Mg Tablet) 650 mg PO Q6H PRN PRN Reason: Pain, Mild (Pain Scale 1-3) Calcium Carbonate (Calcium Carbonate 750 Mg Tab.Chew) 750 mg PO Q6H PRN PRN Reason: Heartburn Last Admin: 02/04/23 22:22 Dose: 750 mg Documented By: EFRAÍN Famotidine (Famotidine 20 Mg Tablet) 20 mg PO BEDTIME [facility] Last Admin: 02/14/23 21:26 Dose: Not Given Documented By: TIFFANIE Non-Admin Reason: Patient Refused Heparin Sodium (Porcine) (Heparin Sodium,Porcine 5,000 Unit/Ml Vial) 5,000 unit SUBCUT Q12H [facility] Last Admin: 02/14/23 23:23 Dose: Not Given Documented By: TIFFANIE Non-Admin Reason: Patient Refused Promethazine HCl 6.25 mg/ (Sodium Chloride) 50.25 mls @ 201 mls/hr IV Q4H PRN PRN Reason: Nausea and Vomiting Last Infusion: 02/07/23 18:34 Dose: Infused Documented By: RACHID Loperamide HCl (Loperamide Hcl 2 Mg Capsule) 2 mg PO BID PRN PRN Reason: loose stool Last Admin: 02/14/23 08:41 Dose: 2 mg Documented By: JUJU Lorazepam (Lorazepam 1 Mg Tablet) 1 mg PO Q6H PRN PRN Reason: anxiety Last Admin: 02/15/23 03:56 Dose: 1 mg Documented By: TIFFANIE [facility] ([facility] 400 Mg Tablet) [facility] Last Admin: 02/15/23 08:30 Dose: 400 mg Documented By: CHRISTELLE Meclizine HCl (Meclizine Hcl 12.5 Mg Tablet) 12.5 mg PO DAILY PRN PRN Reason: dizziness Metoclopramide HCl (Metoclopramide Hcl 10 Mg/2 Ml Vial) 10 mg IVPUSH Q6H [facility] Last Admin: 02/15/23 08:30 Dose: 10 mg Documented By: CHRISTELLE Ondansetron HCl (Ondansetron Hcl 4 Mg/2 Ml Vial) 4 mg IVPUSH Q8H PRN PRN Reason: Nausea and Vomiting Last Admin: 02/09/23 23:15 Dose: 4 mg Documented By: CR Oxycodone HCl (Oxycodone Hcl Immed Release 5 Mg Tablet) 5 mg PO Q6H PRN PRN Reason: mod pain Potassium Phos/Sodium Phos (Sodium,Potassium Phosphates Powd.Pack) 1 packet PO QID [facility] Last Admin: 02/15/23 08:29 Dose: 1 packet Documented By: CHRISTELLE Sodium Chloride (0.9 % Sodium Chloride Flush 3 Ml Syringe) 3 ml IVFLUSH QSHIFT [facility] Last Admin: 02/15/23 08:34 Dose: 3 ml Documented By: CHRISTELLE Vitamin D (Cholecalciferol (Vitamin D3) 25 Mcg Tablet) 50 mcg PO DAILY [facility] Last Admin: 02/15/23 08:30 Dose: 50 mcg Documented By: CHRISTELLE Labs 02/15/23 05:52 02/15/23 05:52 Labs: Laboratory Results - last 24 hr 02/15/23 05:52 MCV 82.0 MCH 27.3 MCHC 33.3 RDW 14.9 Plt Count 278 MPV 9.3 L Absolute Nucleated RBC 0.000 Nucleated RBC % (auto) 0.0 Anion Gap 12 Estim Creat Clear Calc 91.7 Estimated GFR > 60 Fasting Glucose 78 Calcium 8.1 L Magnesium 1.9 Assessment and Plan (1) Intractable nausea and vomiting: Status: Acute Plan 67F PMH metastatic squamous cell carcinoma of cervix, renal mass, chronic pain syndrome, chronic anemia, opioid dependence, and rheumatoid arthritis admitted for intractable nausea and vomiting and uncontrolled pain r/t metastatic cervical cancer. 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 most recent pet, showed response to chemo, plan is ongoing deescalation of opiates due to complications of ileus, patient, not tolerating weaning well addiction team eval Acute hypokalemia and hypomagnesmia continue to replace and monitor check renal electrolytes Metastatic cervical cancer-as per Oncology. RA/chronic pain syndrome Pain management as above Mood disorder continue lorazepam DVT prophylaxis- heparin DNR/DNI reason for continued hospitalization: electrolyte abnormalities, still with nausea, not fully tolerating solids Quality Stroke Does the patient have a stroke diagnosis?: No VTE Prior VTE?: No VTE Risk Level:: Medical - moderate - high VTE Device Contraindication: Treatment Not Indicated VTE Drug Contraindication: N/A - Med Ordered
--- NOTE | 2023-02-15 10:48 | MHC.CLN ---
Addendum entered by Jaqueline Irizarry, RD 02/15/23 11:59: PATIENT WOULD LIKE FORTIFIED ICE CREAM AT LUNCH. [facility] [employer] [facility]WARE. PROVIDES 290 KCALS, 9 G PROTEIN. Original Note: F/U DIET=REGULAR. INTAKE AT MEALS VARIABLE, 0-100%. LOOSE STOOL NOTED, NO EMESIS. CONTINUE TO FOLLOW FOR INTAKE AND DIET TOLERANCE.
[2023-02-15] MEDS: oxyCODONE HCl Immed Release 5 MG TABLET PO ×3 (10:58→22:11)
--- NOTE | 2023-02-15 12:19 | MHC.CM.PN ---
Per MD rounds no discharge today. Patient is not yasmany diet. DP home self care. She will arrange for family transport.
[2023-02-15 15:57] VITALS: BP 167/79; PULSE 74; RESP 18; TEMP 36; O2SAT 95
[2023-02-15 20:00] VITALS: BP 144/74; PULSE 79; RESP 18; TEMP 36; O2SAT 96
[2023-02-15] MEDS: Famotidine 20 MG TABLET PO (22:12)
[2023-02-16] MEDS: Metoclopramide HCl 10 MG/2 ML VIAL IVPUSH ×2 (03:06→09:31)
[2023-02-16 03:43] VITALS: BP 170/87; PULSE 79; RESP 16; TEMP 36.2; O2SAT 93
[2023-02-16] MEDS: oxyCODONE HCl Immed Release 5 MG TABLET PO ×2 (04:02→09:35)
[2023-02-16] MEDS: LORazepam 1 MG TABLET PO ×2 (04:06→09:35)
[2023-02-16 06:05] LABS: Hematocrit 34.1 % (37.0-47.0); Hemoglobin 11.1 g/dl (12.0-16.0); Mean Corpuscular HGB Conc 32.6 g/dl (31.0-35.0); Mean Corpuscular Hemoglobin 26.6 pg (27.0-33.0); Mean Corpuscular Volume 81.8 fL (80.0-98.0); Mean Platelet Volume 8.8 fL (9.4-12.3); Platelet Count 288 X10*3/uL (160-400); Red Blood Count 4.17 X10*6/uL (4.20-5.50); Red Cell Distribution Width 14.6 % (11.0-16.0); White Blood Count 8.2 X10*3/uL (4.8-10.8)
[2023-02-16 06:18] LABS: Anion Gap 13 (12-20); Blood Urea Nitrogen 7 mg/dL (9-16); Calcium 8.3 mg/dL (8.4-10.2); Carbon Dioxide 22 mmol/L (22-29); Chloride 105 mmol/L (96-108); Creatinine Clr Calc Pharmacy 95.2; Estimated Glomerular Filt Rate > 60; Glucose Fasting 86 mg/dL (60-99); Magnesium 1.7 mg/dL (1.6-2.6); Potassium 2.7 mmol/L (3.3-5.1); Sodium 137 mmol/L (135-145)
[2023-02-16 07:50] VITALS: BP 143/70; PULSE 80; RESP 16; TEMP 36.7; O2SAT 94
--- NOTE | 2023-02-16 08:21 | PM.EVENT ---
Event Note Date of Service: 02/16/23 Event Note: Thank you for the consult. All recent data reviewed. Hypokalemia- likely multifactorial. Check urine lytes/ serum aldosterone. Keep Mg need to 2.0. Aggressive K replacement for now. Jamie Berg . [facility] [place]
[2023-02-16] MEDS: 0.9 % Sodium Chloride Flush 3 ML SYRINGE IVFLUSH (09:30)
[2023-02-16] MEDS: Sodium,Potassium Phosphates POWD.PACK 1 PACKET PO (09:30)
[2023-02-16] MEDS: Potassium Chloride ER 20 MEQ TAB.ER.PRT 40 MEQ PO (09:31)
[2023-02-16] MEDS: Cholecalciferol (Vitamin D3) 25 MCG TABLET 50 MCG PO (09:31)
[2023-02-16] MEDS: Magnesium Oxide 400 MG TABLET PO (09:31)
--- NOTE | 2023-02-16 10:07 | HO.PM.IMPN ---
Subjective Subjective Date of Service: 02/16/23 Interval History: diarrhea Physical Exam Vital Signs: Vital Signs: Last Vital Signs Temp 98.0 F 02/16/23 07:50 Pulse 80 02/16/23 07:50 Resp 16 02/16/23 07:50 BP 143/70 H 02/16/23 07:50 Pulse Ox 94 02/16/23 07:50 O2 Del Method Room Air 02/16/23 07:50 BMI result Body Mass Index 21.4 Const: General: comfortable and no acute distress Resp: Effort & Inspection: normal respiratory effort Cardio: Rate: regular rate GI: Palpation (GI): Soft to palpation, not firm, nontender and no guarding Objective Data Active Medications Acetaminophen (Acetaminophen 325 Mg Tablet) 650 mg PO Q6H PRN PRN Reason: Pain, Mild (Pain Scale 1-3) Calcium Carbonate (Calcium Carbonate 750 Mg Tab.Chew) 750 mg PO Q6H PRN PRN Reason: Heartburn Last Admin: 02/04/23 22:22 Dose: 750 mg Documented By: EFRAÍN Famotidine (Famotidine 20 Mg Tablet) 20 mg PO BEDTIME [facility] Last Admin: 02/15/23 22:12 Dose: 20 mg Documented By: CHRISTIE Heparin Sodium (Porcine) (Heparin Sodium,Porcine 5,000 Unit/Ml Vial) 5,000 unit SUBCUT Q12H [facility] Last Admin: 02/15/23 23:55 Dose: Not Given Documented By: CHRISTIE Non-Admin Reason: Patient Refused Promethazine HCl 6.25 mg/ (Sodium Chloride) 50.25 mls @ 201 mls/hr IV Q4H PRN PRN Reason: Nausea and Vomiting Last Infusion: 02/07/23 18:34 Dose: Infused Documented By: RACHID Loperamide HCl (Loperamide Hcl 2 Mg Capsule) 2 mg PO BID PRN PRN Reason: loose stool Last Admin: 02/14/23 08:41 Dose: 2 mg Documented By: JUJU Lorazepam (Lorazepam 1 Mg Tablet) 1 mg PO Q6H PRN PRN Reason: anxiety Last Admin: 02/16/23 09:35 Dose: 1 mg Documented By: EDMUNDO Magnesium Oxide (Magnesium Oxide 400 Mg Tablet) [facility] Last Admin: 02/16/23 09:31 Dose: 400 mg Documented By: EDMUNDO Meclizine HCl (Meclizine Hcl 12.5 Mg Tablet) 12.5 mg PO DAILY PRN PRN Reason: dizziness Metoclopramide HCl (Metoclopramide Hcl 10 Mg/2 Ml Vial) 10 mg IVPUSH Q6H [facility] Last Admin: 02/16/23 09:31 Dose: 10 mg Documented By: EDMUNDO Ondansetron HCl (Ondansetron Hcl 4 Mg/2 Ml Vial) 4 mg IVPUSH Q8H PRN PRN Reason: Nausea and Vomiting Last Admin: 02/09/23 23:15 Dose: 4 mg Documented By: CR Oxycodone HCl (Oxycodone Hcl Immed Release 5 Mg Tablet) 5 mg PO Q6H PRN PRN Reason: mod pain Last Admin: 02/16/23 09:35 Dose: 5 mg Documented By: EDMUNDO Potassium Phos/Sodium Phos (Sodium,Potassium Phosphates Powd.Pack) 1 packet PO QID [facility] Last Admin: 02/16/23 09:30 Dose: 1 packet Documented By: EDMUNDO Sodium Chloride (0.9 % Sodium Chloride Flush 3 Ml Syringe) 3 ml IVFLUSH QSHIFT [facility] Last Admin: 02/16/23 09:30 Dose: 3 ml Documented By: EDMUNDO Vitamin D (Cholecalciferol (Vitamin D3) 25 Mcg Tablet) 50 mcg PO DAILY [facility] Last Admin: 02/16/23 09:31 Dose: 50 mcg Documented By: EDMUNDO Labs 02/16/23 05:24 02/16/23 05:24 Labs: Laboratory Results - last 24 hr 02/16/23 05:24 MCV 81.8 MCH 26.6 L MCHC 32.6 RDW 14.6 Plt Count 288 MPV 8.8 L Absolute Nucleated RBC 0.000 Nucleated RBC % (auto) 0.0 Anion Gap 13 Estim Creat Clear Calc 95.2 Estimated GFR > 60 Fasting Glucose 86 Calcium 8.3 L Magnesium 1.7 Assessment and Plan (1) Intractable nausea and vomiting: Status: Acute Plan 67F PMH metastatic squamous cell carcinoma of cervix, renal mass, chronic pain syndrome, chronic anemia, opioid dependence, and rheumatoid arthritis admitted for intractable nausea and vomiting and uncontrolled pain r/t metastatic cervical cancer. 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 most recent pet, showed response to chemo, plan is ongoing deescalation of opiates due to complications of ileus, patient, not tolerating weaning well addiction team eval Acute hypokalemia and hypomagnesmia continue to replace and monitor check renal electrolytes nephro eval Metastatic cervical cancer-as per Oncology. RA/chronic pain syndrome Pain management as above Mood disorder continue lorazepam DVT prophylaxis- heparin DNR/DNI reason for continued hospitalization: electrolyte abnormalities, still with nausea, not fully tolerating solids Quality Stroke Does the patient have a stroke diagnosis?: No VTE Prior VTE?: No VTE Risk Level:: Medical - moderate - high VTE Device Contraindication: Treatment Not Indicated VTE Drug Contraindication: N/A - Med Ordered
--- NOTE | 2023-02-16 13:05 | P.DS_ITS ---
DS: Providers Provider Date of Service: 02/16/23 Date of admission: 02/02/23 12:23 Primary care physician: Dean Villalba MD Consults: 02/02/23 12:30 Consult to Hematology / Oncology Routine Consulting Provider: Cheyenne Durbin Reason for consultation: metastatic cervical cancer, pain management 02/05/23 08:55 Consult to Gastroenterology Routine Consulting Provider: Jaciel Ruby Reason for consultation: intractable nausea /vomintin, CTabd showsbowel loops and mural thickening Has provider been notified: No 02/05/23 15:32 Consult to General Surgery Routine Consulting Provider: [facility] Reason for consultation: possible partial bowel obstruction -persistent nausea /vomitin Has provider been notified: No 02/15/23 10:37 Addiction Medicine Routine Consulting Provider: Addiction [facility]ing Reason for consultation: oral opiate dependence. (was on for RA and cancer (chemo responsive)) 02/16/23 07:11 Consult to Nephrology Routine Consulting Provider: [facility] Reason for consultation: persistent hypokalemia DS: Diagnosis Discharge Diagnosis (1) Intractable nausea and vomiting: Status: Acute DS: Summary Hospital Course Hospital Course: from initial hpi: 67-year-old female with history of metastatic squamous cell carcinoma of cervix, renal mass, chronic pain syndrome, chronic anemia, opioid dependence, and rheumatoid arthritis presented to the ED earlier today for evaluation of intermittent severe epigastric pain with intractable nausea and vomiting with p.o. intolerance. She has been on high-dose narcotics for about 2 years and had been doing well. She states about 3 months ago, her PCP decided to start weaning her from the narcotics. She states since then she has had near constant nausea but about 1-2 weeks ago has not been able to tolerate fluids or food and has had recurrent vomiting with episodes occurring about 4-10 times daily. She has burning pain in her chest and throat with vomiting. It appears her MS Contin was changed from 30 mg b.i.d. to 15 mg daily about 5 days ago but she states she has not yet change to the decreased dose. She states while he has been decreasing the MS Contin he has also been increasing the frequency of the oxycodone. Despite this, she has continued to have the symptoms. She states the last week she has not made much urine and has not had a bowel movement secondary to lack of p.o. intake. She states she feels very weak and fatigued. Denies any fevers, chills, diarrhea, constipation, melena, hematochezia, hematemesis, lightheadedness, syncope, shortness of breath, or chest pressure. She was initially diagnosed with squamous cell carcinoma of the cervix about 7 years ago and underwent vaginal brachytherapy, radiation, and chemotherapy. Per the patient, she had been doing well but in the past year was diagnosed with renal mass/metastatic disease. She was told this is not curative but has undergone palliative chemo and is now on immunotherapy. Since radiation therapy she states she has had chronic pain diffusely over her body which had been previously well managed by her narcotic prescriptions. She had been recommended for hospice with pain pump but patient declined pump. Most recent PET scan did show improvement compared to priors. She is following with Dr. Durbin as well as [facility]. On arrival, VSS. No leukocytosis. Chronic normocytic anemia with H/H 10.9/33.5%. Renal function baseline. Na 137, K 2.9, Cl 93, CO2 32, Ca 10.6. Lipase 13. CT abd/pelvis ordered. EKG NSR, rate 69, no st/t wave abnormality. In the ED, has received 4 mg IV morphine, 4 mg ondansetron, Compazine, 20 mg IV potassium, Maalox, and 1 L IV NS. Throughout exam patient noted to take a sip of fluid and very shortly after dry heaves and vomits small amounts. hospital course: Patient was admitted for intractable nausea vomiting due to opiate dependence with withdrawal and ileus with delayed gastric emptying. Her opiates were continued to be weaned. Course was complicated by persistent hypokalemia and hypomagnesemia despite replacement. Further workup is ongoing. However, patient decided to leave against medical advice. She demonstrate understanding of the risks of doing so including . For metastatic cervical cancer she will follow-up with Oncology. For mood disorder was continued on Ativan. Time Attestation Discharge coordination time: Greater than 30 minutes Quality: Safe Use of Opioids Does Pt have an Active Cancer Diagnosis on the Problem List?: Yes Opioid Measure Date for [facility] Report: 01/17/23 Opioid Measure Time for [facility] Report: 13:06 Quality: Stroke Does the patient have a stroke diagnosis?: No Physical Exam Vital Signs: Vital Signs: Last Vital Signs Temp 98.0 F 02/16/23 07:50 Pulse 80 02/16/23 07:50 Resp 16 02/16/23 07:50 BP 143/70 H 02/16/23 07:50 Pulse Ox 94 02/16/23 07:50 O2 Del Method Room Air 02/16/23 07:50 BMI result Body Mass Index 21.4 Const: General: comfortable and no acute distress Resp: Effort & Inspection: normal respiratory effort Cardio: Rate: regular rate GI: Palpation (GI): Soft to palpation, not firm, nontender and no guarding DS: Data Data Completed and Pending Labs on day of discharge: Laboratory Results - last 24 hr 02/16/23 05:24 WBC 8.2 RBC 4.17 L Hgb 11.1 L Hct 34.1 L MCV 81.8 MCH 26.6 L MCHC 32.6 RDW 14.6 Plt Count 288 MPV 8.8 L Absolute Nucleated RBC 0.000 Nucleated RBC % (auto) 0.0 Sodium 137 Potassium 2.7 L Chloride 105 Carbon Dioxide 22 Anion Gap 13 BUN 7 L Creatinine 0.53 Estim Creat Clear Calc 95.2 Estimated GFR > 60 Fasting Glucose 86 Calcium 8.3 L Magnesium 1.7 Discharge Plan Discharge Anticipated Discharge Date/Time: 02/16/23 13:02 Patient Disposition: Left Against Medical Advice Discharge Diagnosis: opiate dependence, hypokalemia Referrals: Dean Villalba MD [Primary Care Provider] - 1 Week Discharge Medications: Continued (DME) [facility] Adult Brief Misc See Rx Instructions .Route Qty: 60 2RF Rx Instructions: 2 daily As directed, 30 days lorazepam 1 mg tablet 1 - 2 mg PO BID PRN (Reason: anxiety) 30 Days Qty: 60 0RF promethazine [Promethegan] 25 mg suppository 25 mg GA Q6H PRN (Reason: nausea and vomiting) Qty: 20 0RF celecoxib 200 mg capsule 200 mg PO BID PRN (Reason: pain) gabapentin 600 mg tablet 600 mg PO DAILY alendronate 70 mg tablet 70 mg PO QWEEK prednisone 5 mg tablet 5 mg PO BID ferrous sulfate 325 mg (65 mg iron) tablet 325 mg PO BID omeprazole 20 mg capsule,delayed release(DR/EC) 20 mg PO DAILY@0630 sertraline 50 mg tablet 75 mg PO DAILY cholecalciferol (vitamin D3) [Vitamin D3] 50 mcg (2,000 unit) capsule 50 mcg PO DAILY (DME) cane Device See Rx Instructions .Route Qty: 1 0RF Rx Instructions: As directed (DME) Ultra-Light Rollator Misc See Rx Instructions .Route Qty: 1 0RF Rx Instructions: Rollator walker with seat and brakes. Daily as directed. 999 days loperamide [Anti-Diarrheal (loperamide)] 2 mg capsule 2 mg PO BID PRN (Reason: loose stool) 30 Days Qty: 60 1RF ondansetron 4 mg tablet,disintegrating 4 mg PO Q12H PRN (Reason: nausea and vomiting) 30 Days Qty: 20 0RF clotrimazole 1 % cream 1 appful vaginal BEDTIME 7 Days Qty: 45 1RF Discontinued morphine 15 mg tablet extended release 15 mg PO DAILY oxycodone 5 mg tablet 5 mg PO TID@1200,1600,2100 PRN (Reason: pain) oxycodone 5 mg Tablet 2.5 mg PO DAILY PRN (Reason: Pain (Scale Score 4-6)) Discharge Orders: Discharge Order (Routine); Ordered 02/16/23 Ordered By: Bong Flores Diet: Advance to usual diet Activity on Discharge: As tolerated Care Plan Goals: recvoery Health Concerns: hypokalemia, diarrhea Plan of Treatment: cannot treat properly out of hospital Assessment: see above
--- NOTE | 2023-02-16 14:17 | PC.NURSE ---
Pt stated that she wanted to leave AMA. After speaking to the patient and contacting Dr. Flores, who also spoke to the patient about all of the reasons why leaving before her course of care was complete, pt still insisted that she was leaving. She refused her discharge packet, and after I removed her IV, her sister was at bedside with a home wheelchair and they refused to be accommodated to the parking lot. I explained that if she was having any worsened symptoms or had issues, the ED is open 24 hours and we are here to accommodate her.
== END 2023-02-16 13:32 | disposition left against medical advice (07) | DRG 392 ==
LOC: HO.ED 02-02 10:42 → HO.EDOVER 02-02 12:25 → HO.S3 02-02 15:45
PROVIDERS: Internal Medicine; Admitting Provider Physician Assistant; Emergency Provider Internal Medicine; PCP Family Medicine; Visit Provider Internal Medicine
DX: K30 Functional dyspepsia (principal); F11.23 Opioid dependence with withdrawal; C79.71 Secondary malignant neoplasm of right adrenal gland; K56.7 Ileus, unspecified; G89.3 Neoplasm related pain (acute) (chronic); E87.6 Hypokalemia; F41.9 Anxiety disorder, unspecified; F32.A Depression, unspecified; Z66 Do not resuscitate; E83.42 Hypomagnesemia; M06.9 Rheumatoid arthritis, unspecified; C53.9 Malignant neoplasm of cervix uteri, unspecified; D63.0 Anemia in neoplastic disease; Z87.891 Personal history of nicotine dependence; Z79.52 Long term (current) use of systemic steroids; Z79.60 Long term (current) use of unspecified immunomodulators and immunosuppressants; Z79.899 Other long term (current) drug therapy
CPT/HCPCS: 36415; 74018; 74176; 74246; 74248; 80048; 80053; 80076; 83690; 83735; 84100; 84132; 85025; 85027; 87507; 93005; 96361; 96374; 96375; 99284; 99285; J0737; J1170; J1200; J1364; J1644; J1885; J2270; J2405; J2543; J2550; J2765; J3475; J3480; J7120

== ENCOUNTER 2023-02-02 12:23 | Outpatient (BNV) | payer MEDICARE, SELFPAY | END 2023-02-07 08:00 | PROVIDERS: Admitting Provider Physician Assistant; Emergency Provider Internal Medicine; PCP Family Medicine; Visit Provider Radiology Diagnostic Radiology | DX: R11.2 Nausea with vomiting, unspecified (principal) | CPT/HCPCS: 74246 ==

== ENCOUNTER → 2023-02-02 12:23 | Outpatient (BNV) | payer MEDICARE, SELFPAY | PROVIDERS: Admitting Provider Physician Assistant; Emergency Provider Internal Medicine; PCP Family Medicine; Visit Provider Internal Medicine Medical Oncology | DX: C53.9 Malignant neoplasm of cervix uteri, unspecified (principal); C78.7 Secondary malignant neoplasm of liver and intrahepatic bile duct | CPT/HCPCS: 99222; 99232 ==

== ENCOUNTER → 2023-02-02 12:23 | Outpatient (BNV) | payer MEDICARE, SELFPAY | PROVIDERS: Admitting Provider Physician Assistant; Emergency Provider Internal Medicine; PCP Family Medicine; Visit Provider Surgery | DX: K30 Functional dyspepsia (principal) | CPT/HCPCS: 99222; 99232 ==

== ENCOUNTER → 2023-02-02 12:23 | Outpatient (BNV) | payer MEDICARE, SELFPAY | PROVIDERS: Admitting Provider Physician Assistant; Emergency Provider Internal Medicine; Visit Provider Physician Assistant | DX: R11.2 Nausea with vomiting, unspecified (principal) | CPT/HCPCS: 99223; 99231; 99232; 99233; 99239 ==

== ENCOUNTER 2023-02-20 09:21 | Outpatient (AMB) | payer MEDICARE, SELFPAY ==
--- NOTE | 2023-02-20 09:26 | MHC.PC.OV ---
Vital Signs 02/20/23 09:27 Weight 109 lb BP 144/72 H Blood Pressure Location Lt brachial Pulse 88 Pulse Source Pulse Oximeter Pulse Oximetry (%) 98 Oxygen Delivery Method Room Air Intake Visit Reasons: f/u opioid weaning Intake Note: Patient is here today for opioid weaning, she states that she is losing weight, throwing up and diarrhea, and she is stating it's too soon to be weaned. She feels it should wait until she is feeling better. Allergies buprenorphine [Belbuca] Allergy (Intermediate, Verified 02/20/23 09:29) Anaphylaxis Tobacco use date assessed: 02/20/23 Fall risk assessment: 2 + Falls in past year Last assessed Fall Risk: 02/20/23 HPI f/u opioid weaning HPI Details Pt missed her last visit with me. Reviewed?recent?hospital?visit. Still?has?complaints?of?abdominal?pain?and?nausea.??CT?scan?of?the?abdomen?showed?some?mild?mural?thickening?but?did?not?demonstrate?any?definitive?underlying?cause?or?any?evidence?of?progression?of?cancer.. ?Gastroenterology?had?offered?colonoscopy?but?patient?declined. Patient?left?the?hospital?AMA. Spoke?to??yesterday?to?review. Still?no?evidence?of?progression?of?cancer.??She?had?responded?very?well?to?chemotherapy. ?and?I?still?feel?that?she?is?on?levels?of?opioid?medication?that?are?higher?than?her?need?and?may?be?causing?harm?including?potentially?being?the?underlying?cause?of?her?abdominal?issues,?e.g.?ileus. She?is?willing?to?see?the?patient?again?however?and?get?an?MRI?if?the?patient?is?willing?to?do?so. Pt also had significant lab value abnormalities which were not fully worked up or corrected prior to her leaving [facility]. Pt had refill of her opioid medications on Saturday for 7 days. Pt reports diarrhea improved and is no longer taking her imodium. [facility] Medical History Delayed gastric emptying Squamous cell carcinoma of cervix Complex regional pain syndrome i of lower limb, bilateral Anxiety with depression Chronic pain syndrome Osteoporosis Cervical cancer Opiate abuse, episodic Osteoarthritis of both knees Primary osteoarthritis of knees, bilateral Seropositive rheumatoid arthritis Back pain Surgical History History of D&C History of tonsillectomy History of appendectomy History of cholecystectomy Family History Father Acute CVA (cerebrovascular accident) Mother Hypertension Hypercholesterolemia Brother Liver transplant status Family history of thyroid problem Social History Household Members: Children Housing: House Are you a primary customer care specialist to a significant other at home: Yes (mom) Do you presently have visiting nurse or other home services: Yes Alcohol intake: never Comment: refused bed alarm Patient Tobacco Use Status: Former Tobacco user Quit Date: 2016 Tobacco use type: Cigarette e-Cigarette/Vaping Use: Never Used Second Hand Smoke Exposure: No service: No 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 Cognitive needs: No Hearing needs: No Vision needs: No Questionnaire Thrive Questionnaire Date Thrive assessed: 02/03/23 STEPHIE-7 AMB Questionnaire STEPHIE-7 Date STEPHIE - 7 assessed: 10/19/22 Source: Developed by Drs. Kevin Kenney, Joanie Swan, Marino Medina and colleagues, with an educational july from [employer]. Review of Systems Const Denies chills, Denies fatigue, Denies fever(s), Denies headache(s) and Denies weakness ENT Denies dizziness and Denies headache(s) Card Denies dyspnea Resp Denies cough, Denies dyspnea, Denies wheezing and Denies other (shortness of breath) Musc Denies numbness and Denies tingling Neuro Denies dizziness, Denies headache(s), Denies numbness, Denies tingling and Denies weakness Psych Denies anxiety and Denies depression Endo Denies fatigue Aller/Immun Denies wheezing Physical exam (Primary Care) Vital Signs: Last Vital Signs Pulse 88 02/20/23 09:27 BP 144/72 H 02/20/23 09:27 Pulse Ox 98 02/20/23 09:27 Oxygen Delivery Method Room Air 02/20/23 09:27 Tobacco/Smoking Status: Tobacco use Status Tobacco use date assessed 02/20/23 02/20/23 09:33 Patient Tobacco Use Status Former Tobacco user 02/20/23 09:33 Tobacco use type Cigarette 02/20/23 09:33 e-Cigarette/Vaping Use Never Used 02/20/23 09:33 Thrive Assessment: Date of Thrive Assessment Date Thrive assessed 02/03/23 02/20/23 09:33 Const General: well developed; No acute distress Nutritional Appearance: well nourished Orientation/consciousness: patient oriented x3 HENMT Head: Yes normocephalic and Yes atraumatic Eyes General: appearance normal, both eyes and all related structures Pupils: Equal, round and reactive pupils present EOM: EOMs intact bilaterally Resp Effort & Inspection: normal respiratory effort Neuro General: patient oriented x3 and gait normal Cranial nerves: Yes Equal, round and reactive pupils present Psych Affect: normal affect Assessment and Plan Assessment & Plan (1) Chronic, continuous use of opioids: Code(s): F11.90 - Opioid use, unspecified, uncomplicated Plan: See?HPI?for?review Had?spoken?to?Hematology-Oncology; patient?has?no?evidence?progression?of?disease and?we?agree?that?she?is?on?doses?higher?than?is?needed?to?control?arthritis,?back?and?knee?pain. Continuing?to?wean?down?her?opioid?medication. Continuing?morphine?15?mg?as?prescribed Decreasing?oxycodone?5?mg?from?a?total?daily?dose?of?17.5?mg?to 15?mg?daily (5?mg?Q8?hours) Offered?to?refer?her?to?pain?management. She?has?rheumatology?on?board?and?her?knees?are?a?little?better?with?celecoxib?and?steroid?injections. Continue?close?follow-up?every?2?weeks?while?weaning (2) Back pain: Code(s): M54.9 - Dorsalgia, unspecified Plan: As?above (3) Abdominal pain: Code(s): R10.9 - Unspecified abdominal pain Plan: Likely?recent?ileus?and?this?may?have?been?precipitated?by?opioid?medications. We?continue?to?wean?down?her?opioid?medications She?can?use?ondansetron?for?nausea Hydrate?well (4) Hypokalemia: Code(s): E87.6 - Hypokalemia Plan: Significantly?low?potassium?likely?secondary?to?vomiting?and?diarrhea Her?symptoms?seem?to?have?decreased?and?I?will?give?her?ondansetron?to?help?with?nausea. Checking?potassium?levels?and?she?may?need?supplementation. (5) Seropositive rheumatoid arthritis: Code(s): M05.9 - Rheumatoid arthritis with rheumatoid factor, unspecified Plan: Follow-up?with?rheumatology?as?recommended (6) Osteoarthritis of knees, bilateral: Code(s): M17.0 - Bilateral primary osteoarthritis of knee Plan: Improved?with?steroids Follow-up?with?rheumatology Orders: Orders Complete Blood Count Auto Diff Today R11.2 - Nausea with vomiting, unspecified, Z00.00 - Encounter for general adult medical examination without abnormal findings Comprehensive Met. Panel Today E87.6 - Hypokalemia UA and rflx microscopic Today R31.9 - Hematuria, unspecified, Z00.00 - Encounter for general adult medical examination without abnormal findings Medications: New oxycodone Continuing Wean. [employer]Pat Verified. Partial Fill upon patient request. 2.5 mg (1/2 x 5 mg) PO Q6H 15 days PRN 30 tabs 0RF pain oxycodone Continuing Wean. [employer] Verified. Partial Fill upon patient request. 5 mg PO Q8H 15 days PRN 45 tabs 0RF pain Changed From morphine ER 15 mg PO DAILY To morphine ER [employer] Verified. Partial refill upon request. 15 mg PO DAILY 15 days 15 tabs 0RF Refilled ondansetron 4 mg PO Q12H 30 days PRN 20 tabs 0RF nausea and vomiting R31.9 - Hematuria, unspecified Discontinued oxycodone Discontinued Reason: Duplicate 2.5mg AM, 2.5mg Afternoon, 5mg Bedtime. Partial Fill upon patient request. 7 days 15 tabs 0RF pain morphine ER Partial Fill upon patient request. Discontinued Reason: Duplicate 15 mg PO DAILY 7 days 7 tabs 0RF morphine ER Partial Fill upon patient request. Discontinued Reason: Duplicate 15 mg PO DAILY 7 days 7 tabs 0RF oxycodone Discontinued Reason: Duplicate 2.5mg AM, 2.5mg Afternoon, 5mg Bedtime. Partial Fill upon patient request. 7 days 15 tabs 0RF pain Coding Level of Care Code Est Pt Level 4 (87484) Diagnoses Chronic, continuous use of opioids F11.90 Back pain M54.9 Abdominal pain R10.9 Hypokalemia E87.6 Seropositive rheumatoid arthritis M05.9 Osteoarthritis of knees, bilateral M17.0
[2023-02-20 09:27] VITALS: BP 144/72; PULSE 88; O2SAT 98
== END 2023-02-20 10:23 | disposition home or self-care (01) ==
PROVIDERS: PCP Family Medicine; Visit Provider Family Medicine
DX: M05.9 Rheumatoid arthritis with rheumatoid factor, unspecified (principal); F11.90 Opioid use, unspecified, uncomplicated; M54.9 Dorsalgia, unspecified; R10.9 Unspecified abdominal pain; E87.6 Hypokalemia; M17.0 Bilateral primary osteoarthritis of knee
CPT/HCPCS: 99214

== ENCOUNTER 2023-02-20 10:10 | Outpatient (REF) | payer MEDICARE, SELFPAY ==
[2023-02-20 11:35] LABS: MANUAL DIFF FLAG NO
[2023-02-20 11:46] LABS: Basophils Absolute Auto 0.1 X10*3/uL (0.0-0.2); Basophils Percent Auto 0.6 % (0-2); Eosinophils Percent Auto 0.1 % (0-4); Hematocrit 38.4 % (37.0-47.0); Hemoglobin 12.3 g/dl (12.0-16.0); Imm Gran Abs Auto 0.03 X10*3/uL (0.00-0.03); Imm Gran Pct Auto 0.4 % (0.0-0.4); Lymphocytes Absolute Auto 1.6 X10*3/uL (1.2-4.9); Lymphocytes Percent Auto 19.5 % (20-40); Mean Corpuscular Hemoglobin 26.5 pg (27.0-33.0); Mean Corpuscular Volume 82.8 fL (80.0-98.0); Mean Platelet Volume 9.6 fL (9.4-12.3); Monocytes Absolute Auto 0.8 X10*3/uL (0.1-1.2); Monocytes Percent Auto 9.7 % (2-11); Neutrophils Absolute Auto 5.8 x10*3/uL (2.0-8.3); Neutrophils Percent Auto 69.7 % (45-73); Platelet Count 539 X10*3/uL (160-400); Red Blood Count 4.64 X10*6/uL (4.20-5.50); White Blood Count 8.4 X10*3/uL (4.8-10.8)
[2023-02-20 12:06] LABS: Alanine Aminotransferase 16 U/L (0-31); Albumin Level 3.7 g/dL (3.5-5.0); Alkaline Phosphatase 338 U/L (39-117); Anion Gap 14 (12-20); Aspartate Amino Transferase 30 U/L (5-31); Bilirubin Total 0.5 mg/dL (0.0-1.0); Blood Urea Nitrogen 14 mg/dL (9-16); Calcium 9.4 mg/dL (8.4-10.2); Carbon Dioxide 36 mmol/L (22-29); Chloride 87 mmol/L (96-108); Estimated Glomerular Filt Rate > 60; Glucose Random 112 mg/dL (60-115); Potassium 2.9 mmol/L (3.3-5.1); Sodium 134 mmol/L (135-145); Total Protein 7.3 g/dL (6.5-8.0)
== END 2023-02-20 10:11 | disposition home or self-care (01) ==
LOC: HO.WFDLDS 10:10
PROVIDERS: Visit Provider Family Medicine
DX: Z00.00 Encounter for general adult medical examination without abnormal findings (principal); R11.2 Nausea with vomiting, unspecified; E87.6 Hypokalemia
CPT/HCPCS: 36415; 80053; 85025

== ENCOUNTER 2023-03-14 09:04 | Inpatient (IN) | payer MEDICARE, SELFPAY ==
[2023-03-14] VITALS (7 sets, daily range): BP systolic 108–129; BP diastolic 64–96; PULSE 70–95; RESP 16–18; TEMP 36.5–36.6; O2SAT 96–99; BMI 16.6
--- NOTE | ~2023-03-14 | IR_ITS ---
History: Patient with need for temporary central venous access, including for the administration of TPN Procedure performed: 1. Ultrasound and fluoroscopic guided placement of a PICC line Physician: Luzma Calhoun MD Anesthesia: 9 mL 1% lidocaine; 25 mcg of fentanyl Line: Triple lumen PICC line measuring 45 cm in length Specimen: None Estimated blood loss: Minimal Complications: None Procedure in detail: Informed and written consent was obtained. The patient was placed supine on the angiography table with the right arm abducted. A tourniquet was applied. The right arm was prepped and draped. Ultrasound showed a suitable basilic vein for access. 1% lidocaine was injected subcutaneously and extended to the basilic vein under ultrasound guidance. A small incision was made in the skin with a #11 blade. Through the incision and under ultrasound guidance with permanent recordings and direct visualization of needle penetration of the vein, the right basilic vein was catheterized in an antegrade fashion. A wire was threaded to the atriocaval junction for measurement purposes. The peel-away sheath was placed. A triple lumen PICC line was trimmed to 45 cm and inserted through the peel-away sheath. A saved fluoroscopic image shows that it terminates at the atriocaval junction. The PICC line flushes and aspirates appropriately. It was secured to the upper arm. The patient tolerated the procedure well. Summary: Successful placement of a right basilic vein PICC line as described. It is ready for immediate use.
--- NOTE | 2023-03-14 16:12 | ED.GENADULT ---
HPI - General Adult General Chief complaint: Nausea/Vomiting/Diarrhea Stated complaint: NAUSEA,VOMITING,H/O CA PER EMS Time Seen by Provider: 03/14/23 11:34 Source: patient Mode of arrival: EMS History of Present Illness HPI narrative: This is a 67-year-old female who has known stage IV cancer that is metastatic. Patient informs me that she has been in and out of hospitals for the past couple of months due to poor p.o. intake and was just recently discharged from [facility]. When I asked the patient regarding hospice, she informs me that initially she did not qualify because she was pursuing palliative chemotherapy, but has not received chemotherapy for several weeks at this time due to bleeding complications. Related Data Home Medications Medication Instructions Recorded Confirmed alendronate 70 mg tablet 70 mg PO QWEEK 02/02/23 celecoxib 200 mg capsule 200 mg PO BID PRN pain 02/02/23 cholecalciferol (vitamin D3) 50 50 mcg PO DAILY 02/02/23 mcg (2,000 unit) capsule (Vitamin D3) ferrous sulfate 325 mg (65 mg 325 mg PO BID 02/02/23 iron) tablet omeprazole 20 mg capsule,delayed 20 mg PO DAILY@0630 02/02/23 release prednisone 5 mg tablet 5 mg PO BID 02/02/23 sertraline 50 mg tablet 75 mg PO DAILY 02/02/23 Previous Rx's Medication Instructions Recorded cane #1 ea 08/18/21 walker (Ultra-Light Rollator misc) #1 ea 08/31/22 diaper,brief,adult,disposable #60 ea 09/13/22 (Wings Choice Adult Brief) clotrimazole 1 % vaginal cream 1 appful vaginal BEDTIME 7 days 01/29/23 #45 grams loperamide 2 mg capsule 2 mg PO BID PRN loose stool 30 01/29/23 (Anti-Diarrheal (loperamide)) days #60 caps promethazine 25 mg rectal 25 mg NJ Q6H PRN nausea and 01/31/23 suppository (Promethegan) vomiting #20 ea lorazepam 1 mg tablet See Rx Instructions PO BID PRN 02/18/23 anxiety 30 days #120 tabs lorazepam 1 mg tablet See Rx Instructions PO BID PRN 02/18/23 anxiety 30 days #120 tabs glycerin (adult) 1 supp NJ DAILY PRN constipation 02/20/23 15 days #12 ea potassium chloride 10 mEq 10 meq PO BID 15 days #30 caps 02/20/23 capsule,extended release lorazepam 1 mg tablet 1 - 2 mg (1 - 2 x 1 mg) PO BID PRN 02/22/23 anxiety 30 days #60 tabs gabapentin 600 mg tablet 600 mg PO DAILY 30 days #30 tabs 02/26/23 ondansetron 4 mg disintegrating 4 mg PO Q12H PRN nausea and 03/05/23 tablet vomiting 30 days #20 tabs morphine 15 mg tablet,extended 15 mg PO DAILY 15 days #15 tabs 03/12/23 release oxycodone 5 mg tablet 5 mg PO Q8H PRN pain 15 days #45 03/12/23 tabs Allergies Allergy/AdvReac Type Severity Reaction Status Date / Time buprenorphine [Belbuca] Allergy Intermediate Anaphylaxis Verified 02/20/23 09:29 Review of Systems Review of Systems: Pertinent positives and negatives as stated in HPI [facility] Past Medical History Source: nursing notes reviewed Onset Date is defined in the Problem List Problems that require an onset date and time if occurred within 24 hrs of arrival to the ED Aortic Dissection and Rupture; Neurologic impairment; Cardiopulmonary Arrest; Endotracheal Intubation; Insertion or Replacement of Mechanical Circulatory Assist Device Medical History Delayed gastric emptying Squamous cell carcinoma of cervix Complex regional pain syndrome i of lower limb, bilateral Anxiety with depression Chronic pain syndrome Osteoporosis Cervical cancer Opiate abuse, episodic Osteoarthritis of both knees Primary osteoarthritis of knees, bilateral Seropositive rheumatoid arthritis Back pain Surgical History History of D&C History of tonsillectomy History of appendectomy History of cholecystectomy Family History Family History Father Acute CVA (cerebrovascular accident) Mother Hypertension Hypercholesterolemia Brother Liver transplant status Family history of thyroid problem Social History Social History Household Members: Children Housing: House Are you a primary health care analyst to a significant other at home: Yes (mom) Do you presently have visiting nurse or other home services: Yes Alcohol intake: never Comment: refused bed alarm Patient Tobacco Use Status: Former Tobacco user Quit Date: 2016 Tobacco use type: Cigarette e-Cigarette/Vaping Use: Never Used Second Hand Smoke Exposure: No Advance Directives: Yes Advance Directives Information Provided: No Advance Directives on File: No service: No 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 Cognitive needs: No Hearing needs: No Vision needs: No Physical Exam ED Vital Signs: Vital Signs - 24 hr 03/14/23 09:48 03/14/23 13:15 03/14/23 15:08 Temperature 97.8 F 97.7 F Pulse Rate 95 92 88 Respiratory Rate 16 16 16 Blood Pressure 123/96 H 115/85 108/75 Pulse Oximetry 99 98 98 Oxygen Delivery Method Room Air Room Air Room Air BMI result Body Mass Index 16.6 VITAL SIGNS: Reviewed. GENERAL: Cachectic, frail, in no acute distress. HEAD: Normocephalic/atraumatic EYES: PERRLA, EOMI EARS: Ext canals without abnormality NOSE: Nares patent bilateral OROPHARYNX: no oral lesions noted, posterior pharynx clear NECK: Supple, no adenopathy LUNGS: Normal breath sounds. No adventitious sounds or accessory muscle use. SpO2<98> CARDIOVASCULAR: Regular rate and rhythm without noted murmurs ABDOMEN: Soft, non-tender, non-distended with bowel sounds. MUSCULOSKELETAL: No tenderness, deformities, or effusions noted on gross inspection. EXTREMITIES: No cyanosis, clubbing or edema. SKIN: Inspection of the skin reveals no rashes NEUROLOGIC: Alert and oriented x 4. Strength and sensation to light touch were grossly intact x 4. Medications Administered Discontinued Medications Generic Name Dose Route Start Last Admin Trade Name Freq PRN Reason Stop Dose Admin Sodium Chloride 1,000 mls @ 999 mls/hr 03/14/23 16:30 03/14/23 16:38 Ns IV 03/14/23 17:30 999 mls/hr .Q1H1M LUIS M Administration Ondansetron HCl 4 mg 03/14/23 09:56 03/14/23 09:59 Ondansetron Odt 4 Mg Tab.Rapdis TRANSLINGU 03/14/23 09:57 Not Given ONCE ONE Ondansetron HCl 4 mg 03/14/23 10:04 03/14/23 10:08 Ondansetron Odt 4 Mg Tab.Rapdis SUBLINGUAL 01/04/24 10:05 Not Given ONCE ONE Ondansetron HCl 4 mg 03/14/23 15:29 03/14/23 15:46 Ondansetron Hcl 4 Mg/2 Ml Vial IVPUSH 03/14/23 15:30 4 mg ONCE ONE Administration Medical Decision Making Medical Decision Making [facility] Narrative: 67-year-old female with history and clinical presentation, DDX: Metastatic cancer that is terminal, suspect that patient's chronic nausea/vomiting and poor p.o. intake is secondary to sequela from that. I did discuss the case with Dr. Durbin she states that she has not seen the patient and is unable to give recommendations at this time. I reviewed all investigations and there is no leukocytosis or left shift, there is no anemia but there is a slight elevation of platelets. Chemistry indices do not demonstrated JEREMIAS and otherwise electrolyte and liver enzymes are chronically stable or within normal limits. Urinalysis negative for UTI. Viral testing is negative. I have placed a consult for case management and discussed with the case management team that patient should qualify for hospice care at this time and they will be reaching out to hospice services. In the meantime patient is receiving IV fluids as well as antiemetics. I have asked case management to see the patient, they went in and had a discussion regarding palliative versus hospice services, patient was equivocal and was unable to provide any further direction. Patient apparently stopped the visiting nurses that were scheduled to see her after her discharge from [facility], she also canceled the physical therapy. When I have asked the patient once again how we can best help her she continues to states that she wishes to stop vomiting. 1739: I have placed the patient in physician observation, case management is currently reaching out to the healthcare proxy as well as the daughter who lives with the patient to attempt gathering of collateral information. I have signed the patient out to [facility], pharmacy will perform a medication reconciliation so that patient does not miss any important medications. Patient is doing well after having received IV Zofran and is receiving IV fluids at this time. Consultations have been placed for palliative services and hospice services. Differential Diagnosis Differential Diagnoses: The differential diagnosis associated with the presentation includes Please see the discussion above Admission/Observation Consideration of admission/observation: Escalation of care including admission/observation considered Please see the discussion above Consult Healthcare Provider Management of the patient was discussed with: Compliance Assistant Please see the discussion above Lab Data [facility] Lab Attestation statement: I reviewed the patient's lab results. Please see the discussion above 03/14/23 11:57 03/14/23 11:58 Labs: Lab Results 03/14/23 03/14/23 03/14/23 Range/Units 11:57 11:58 13:20 WBC 4.8 (4.8-10.8) X10*3/uL RBC 5.15 (4.20-5.50) X10*6/uL Hgb 14.0 (12.0-16.0) g/dl Hct 42.2 (37.0-47.0) % MCV 81.9 (80.0-98.0) fL MCH 27.2 (27.0-33.0) pg MCHC 33.2 (31.0-35.0) g/dl RDW 16.4 H (11.0-16.0) % Plt Count 463 H (160-400) X10*3/uL MPV 9.5 (9.4-12.3) fL Immature Gran % (Auto) 0.4 (0.0-0.4) % Neut % (Auto) 66.7 (45-73) % Lymph % (Auto) 19.9 L (20-40) % [place] % (Auto) 12.6 H (2-11) % Eos % (Auto) 0.0 (0-4) % Baso % (Auto) 0.4 (0-2) % Lymph # (Auto) 1.0 L (1.2-4.9) X10*3/uL [place] # (Auto) 0.6 (0.1-1.2) X10*3/uL Eos # (Auto) 0.0 (0.0-0.4) X10*3/uL Baso # (Auto) 0.0 (0.0-0.2) X10*3/uL Abs Immat Gran (auto) 0.02 (0.00-0.03) X10*3/uL Absolute Neuts (auto) 3.2 (2.0-8.3) x10*3/uL Absolute Nucleated RBC 0.000 (0.0-0.012) X10*3/uL Nucleated RBC % (auto) 0.0 (0.0-0.2) /100WBC Sodium 136 (135-145) mmol/L Potassium 4.1 D (3.3-5.1) mmol/L Chloride 96 (96-108) mmol/L Carbon Dioxide 24 (22-29) mmol/L Anion Gap 20 (12-20) BUN 22 H (9-16) mg/dL Creatinine 0.76 (0.5-1.4) mg/dL Estim Creat Clear Calc 52.8 Estimated GFR > 60 Random Glucose 135 H (60-115) mg/dL Calcium 9.8 (8.4-10.2) mg/dL Total Bilirubin 0.6 (0.0-1.0) mg/dL Direct Bilirubin 0.1 (0.0-0.5) mg/dL AST 36 H (5-31) U/L ALT 27 (0-31) U/L Alkaline Phosphatase 330 H (39-117) U/L Total Protein 6.7 (6.5-8.0) g/dL Albumin 3.0 L (3.5-5.0) g/dL Lipase 5 L (8-78) U/L Urine Color Dark Yellow Urine Appearance Cloudy Urine pH 5.5 (5.0-9.0) Ur Specific Valentine >= 1.030 H (1.005-1.025) Urine Protein 30 (1+) H (Neg-Trace) mg/dL Urine Glucose (UA) Negative (Negative) mg/dL Urine Ketones 40 (Negative) mg/dL Urine Blood Negative (Negative) Urine Nitrite Negative (Negative) Ur Leukocyte Esterase Trace H (Negative) Urine RBC 11-20 H (0-2) /HPF Urine WBC 0-5 (0-5) /HPF Ur Squamous Epith Cells 3-5 (0-2) /HPF Urine Bacteria 2+ (None Seen) Hyaline Casts 6-10 (0-2) /LPF Granular Casts Present Influenza Type A (SAVAGE) (Negative) Influenza Type A (PCR) NEGATIVE (Negative) Influenza Type B (SAVAGE) (Negative) Influenza Type B (PCR) NEGATIVE (Negative) Influenza A & B Note RSV RNA Qual (PCR) NEGATIVE (Negative) SARS-CoV-2 RNA (RT-PCR) NEGATIVE (Negative) 03/14/23 Range/Units 13:28 WBC (4.8-10.8) X10*3/uL RBC (4.20-5.50) X10*6/uL Hgb (12.0-16.0) g/dl Hct (37.0-47.0) % MCV (80.0-98.0) fL MCH (27.0-33.0) pg MCHC (31.0-35.0) g/dl RDW (11.0-16.0) % Plt Count (160-400) X10*3/uL MPV (9.4-12.3) fL Immature Gran % (Auto) (0.0-0.4) % Neut % (Auto) (45-73) % Lymph % (Auto) (20-40) % [place] % (Auto) (2-11) % Eos % (Auto) (0-4) % Baso % (Auto) (0-2) % Lymph # (Auto) (1.2-4.9) X10*3/uL [place] # (Auto) (0.1-1.2) X10*3/uL Eos # (Auto) (0.0-0.4) X10*3/uL Baso # (Auto) (0.0-0.2) X10*3/uL Abs Immat Gran (auto) (0.00-0.03) X10*3/uL Absolute Neuts (auto) (2.0-8.3) x10*3/uL Absolute Nucleated RBC (0.0-0.012) X10*3/uL Nucleated RBC % (auto) (0.0-0.2) /100WBC Sodium (135-145) mmol/L Potassium (3.3-5.1) mmol/L Chloride (96-108) mmol/L Carbon Dioxide (22-29) mmol/L Anion Gap (12-20) BUN (9-16) mg/dL Creatinine (0.5-1.4) mg/dL Estim Creat Clear Calc Estimated GFR Random Glucose (60-115) mg/dL Calcium (8.4-10.2) mg/dL Total Bilirubin (0.0-1.0) mg/dL Direct Bilirubin (0.0-0.5) mg/dL AST (5-31) U/L ALT (0-31) U/L Alkaline Phosphatase (39-117) U/L Total Protein (6.5-8.0) g/dL Albumin (3.5-5.0) g/dL Lipase (8-78) U/L Urine Color Urine Appearance Urine pH (5.0-9.0) Ur Specific Valentine (1.005-1.025) Urine Protein (Neg-Trace) mg/dL Urine Glucose (UA) (Negative) mg/dL Urine Ketones (Negative) mg/dL Urine Blood (Negative) Urine Nitrite (Negative) Ur Leukocyte Esterase (Negative) Urine RBC (0-2) /HPF Urine WBC (0-5) /HPF Ur Squamous Epith Cells (0-2) /HPF Urine Bacteria (None Seen) Hyaline Casts (0-2) /LPF Granular Casts Influenza Type A (SAVAGE) Negative (Negative) Influenza Type A (PCR) (Negative) Influenza Type B (SAVAGE) Negative (Negative) Influenza Type B (PCR) (Negative) Influenza A & B Note See Note RSV RNA Qual (PCR) (Negative) SARS-CoV-2 RNA (RT-PCR) (Negative) External Record Review External record reviewed: Office record, Outpatient record, Prior outpatient labs and Prior outpatient radiology Chronic Conditions Patient?s care impacted by: Other Metastatic cancer Critical Care Time Critical Care Time Critical Care Time: Yes Total Critical Care Time: 60 Attestation: I personally attest to this time spent taking care of the patient. Discharge Plan Discharge Clinical Impression: Metastatic cancer, Nausea & vomiting Patient Disposition: Still a Patient Prescriptions: No Action (DME) Wings Choice Adult Brief Misc See Rx Instructions .Route Qty: 60 2RF Rx Instructions: 2 daily As directed, 30 days lorazepam 1 mg tablet See Rx Instructions PO BID PRN (Reason: anxiety) 30 Days Qty: 120 0RF Rx Instructions: 1mg to 2mg orally 2 times a day PRN; MassPat verified. Partial refill upon request. lorazepam 1 mg tablet See Rx Instructions PO BID PRN (Reason: anxiety) 30 Days Qty: 120 0RF Rx Instructions: 1mg to 2mg orally 2 times a day PRN; MassPat verified. Partial refill upon request. lorazepam 1 mg tablet 1 - 2 mg PO BID PRN (Reason: anxiety) 30 Days Qty: 60 0RF gabapentin 600 mg tablet 600 mg PO DAILY 30 Days Qty: 30 3RF ondansetron 4 mg tablet,disintegrating 4 mg PO Q12H PRN (Reason: nausea and vomiting) 30 Days Qty: 20 0RF morphine 15 mg tablet extended release 15 mg PO DAILY 15 Days Qty: 15 0RF Rx Instructions: MassPat Verified. Partial refill upon request. oxycodone 5 mg tablet 5 mg PO Q8H PRN (Reason: pain) 15 Days Qty: 45 0RF Rx Instructions: Continuing Wean. MassPat Verified. Partial Fill upon patient request. promethazine [Promethegan] 25 mg suppository 25 mg NJ Q6H PRN (Reason: nausea and vomiting) Qty: 20 0RF celecoxib 200 mg capsule 200 mg PO BID PRN (Reason: pain) alendronate 70 mg tablet 70 mg PO QWEEK prednisone 5 mg tablet 5 mg PO BID ferrous sulfate 325 mg (65 mg iron) tablet 325 mg PO BID omeprazole 20 mg capsule,delayed release(DR/EC) 20 mg PO DAILY@0630 sertraline 50 mg tablet 75 mg PO DAILY cholecalciferol (vitamin D3) [Vitamin D3] 50 mcg (2,000 unit) capsule 50 mcg PO DAILY (DME) cane Device See Rx Instructions .Route Qty: 1 0RF Rx Instructions: As directed (DME) Ultra-Light Rollator Misc See Rx Instructions .Route Qty: 1 0RF Rx Instructions: Rollator walker with seat and brakes. Daily as directed. 999 days loperamide [Anti-Diarrheal (loperamide)] 2 mg capsule 2 mg PO BID PRN (Reason: loose stool) 30 Days Qty: 60 1RF clotrimazole 1 % cream 1 appful vaginal BEDTIME 7 Days Qty: 45 1RF potassium chloride 10 mEq capsule, extended release 10 meq PO BID 15 Days Qty: 30 0RF glycerin (adult) Suppository 1 supp NJ DAILY PRN (Reason: constipation) 15 Days Qty: 12 0RF
--- NOTE | 2023-03-14 19:07 | PC.NURSE ---
assumed care of pt
--- NOTE | 2023-03-14 19:22 | PHA.MEDREC ---
Pharmacy Consult ? Medication Reconciliation Pharmacy has completed the medication reconciliation. Patient discharge from [facility] on 03/10/23, patient has not been able to tow picker new prescriptions that were prescribed on discharge. Brooke Samuel, MatildaD
--- NOTE | 2023-03-14 20:12 | MHC.CM.ED ---
CM met with patient at the request of Dr. Santana. Pt has cervical/renal cancer with metastasis. Pt states she was receiving chemo, but stopped due to complications. Pt is pale, thin and weak. Pt has been [facility] inpatient for vomitting, SBO and UTI. Pt is active with [facility] after [facility] admission (03/02-03/10). Pt has cancelled last 2 visits due to increasing nausea and vomiting. Referral placed. Pt has SN, PT/OT. Pt has been active with [facility] for meals on wheels, but cancelled them due to recent hospitalizations. Pt has had CA treatments at [facility], but has not been seen since August and her case is closed. Pt has seen Dr. Durbin in the past, but not recently. [facility] on file-DNR?DNI. No HCP on file. HCP is pt son, Kevin Marin ([phone]). Pt lives with her daughter, who provides care for patient. Pt uses a cane, but has been unable to ambulate due to nausea, vomiting and weakness. Spoke with patient at length regarding palliative vs hospice care. Pt understands that her cancer is terminal, but is unsure what to do. She states she just wants to feel better. Pt is agreeable to meet with hospice to discuss options. CM explained that [facility] would make her comfortable and hospice could help with symptoms of her cancer. Pt is tearful. Pt understands and is agreeable to meeting with hospice, but is unsure of her decision. CM spoke with son, Kevin. Kevin is very supportive of his mother and agrees that she needs hospice. Spoke at length about palliative vs hospice. Spoke about end of life. Kevin feels his mother is fearful of they process of dying, not dying itself. Kevin is willing to be available to meet with hospice. Expectation is for patient to remain in ED overnight for nausea and pain control and will d/c home in the morning. [facility] and hospice has accepted patient. CM will speak with them in the morning regarding meeting patient at home to discuss options for care. CM following for discharge planning.
[2023-03-14] MEDS: Morphine Sulfate ER 15 MG TABLET.ER PO (20:52)
[2023-03-14] MEDS: Ondansetron ODT 4 MG TAB.RAPDIS TRANSLINGU (20:52)
--- NOTE | 2023-03-14 23:40 | MHC.EDTECH ---
This tech took over care of patient at 2300,hourly rounds and vitals completed,patient is resting comfortably at this time and call cruz within reach.
--- NOTE | 2023-03-14 23:43 | MHC.EDTECH ---
Belongings list completed and copy placed in chart.
--- NOTE | 2023-03-15 01:55 | MHC.EDTECH ---
Hourly rounds completed, patient is sleeping at this time. Resp. rate WNL call cruz in reach
[2023-03-15 02:39] VITALS: BP 148/73; PULSE 86; RESP 18
--- NOTE | 2023-03-15 03:29 | MHC.EDTECH ---
Patient was incot.of a large amount of liquid dark green stool,and urine patient was cleaned and aranza-care giving. Stool sample collected and sent to lab.call cruz is within reach
--- NOTE | 2023-03-15 04:18 | MHC.EDTECH ---
Not enough stool to run the GI Panel will re-attempt when patient goes. RN made aware
[2023-03-15 04:24] LABS: CDiff Gene PCR POSITIVE (Negative)
[2023-03-15 04:51] VITALS: BP 143/96; PULSE 89; RESP 17; TEMP 36.9; O2SAT 98
[2023-03-15 05:10] LABS: CDiff Toxin Positive (Negative)
[2023-03-15 05:11] LABS: CDIFF Internal ctrl Dots and bkg OK (V)
--- NOTE | 2023-03-15 06:24 | MHC.EDTECH ---
Hourly rounds completed,patient incot. of a moderate amount of liquid stool,patient was cleaned and aranza-care giving.Patient repositioned to comfort and Call cruz within reach
--- NOTE | 2023-03-15 07:44 | PC.NURSE ---
pt vomiting dark green emesis into bag. PA reports that sublingual zofran makes her feel worse and reports that she had relief from IV zofran given yesterday. PA notified and verbal order for one time IV zofran entered
--- NOTE | 2023-03-15 11:47 | PC.NURSE ---
pt has been very nausous and vomiting today. PA notified and compazine given. pt reports feeling better. oral vanco was refused by pt this morning but she accepted taking vancomycin late.
--- NOTE | 2023-03-15 13:01 | MHC.CM.PN ---
CM SPOKE TO [facility], THEY ARE WORKING ON MAKING CONTACT WITH PTS SON TO COMPLETE HOSPICE INFORMATIONAL
--- NOTE | 2023-03-15 13:27 | PC.NURSE ---
pt is sleeping. pt reported relief after the compazine. Pt allowed to rest at this time
[2023-03-15 16:10] VITALS: BP 118/65; PULSE 80; RESP 18; TEMP 36.4; O2SAT 99
--- NOTE | 2023-03-15 16:58 | PM.IMHP ---
History of Present Illness Date of Service: 03/15/23 Chief Complaint: n/v 67F PMH metastatic squamous cell carcinoma of cervix (no longer on chemo, but most recent PET 10/2022 showed good response), chronic pain syndrome with opiate dependence, RA, presented with nausea and vomiting. Patient was recently discharged about 1 month prior to presentation [place] [facility] [place] and was also seen in between at [facility] for similar symptoms. She has been nauseous, vomiting, poor p.o. intake for several months. She reports recently being put on antibiotics for urinary tract infection. In ED plan was for transition to hospice care at home, noted to be C diff positive, not tolerating p.o., therefore, transitioned to inpatient was requested. Review of Systems Review of Systems: Yes all other systems are reviewed and are negative [facility] Medical History Delayed gastric emptying Squamous cell carcinoma of cervix Complex regional pain syndrome i of lower limb, bilateral Anxiety with depression Chronic pain syndrome Osteoporosis Cervical cancer Opiate abuse, episodic Osteoarthritis of both knees Primary osteoarthritis of knees, bilateral Seropositive rheumatoid arthritis Back pain Family History Father Acute CVA (cerebrovascular accident) Mother Hypertension Hypercholesterolemia Brother Liver transplant status Family history of thyroid problem Surgical History History of D&C History of tonsillectomy History of appendectomy History of cholecystectomy Social History Household Members: Children Housing: House Are you a primary hospice care sales consultant to a significant other at home: Yes (mom) Do you presently have visiting nurse or other home services: Yes Alcohol intake: never Comment: refused bed alarm Patient Tobacco Use Status: Former Tobacco user Quit Date: 2016 Tobacco use type: Cigarette e-Cigarette/Vaping Use: Never Used Second Hand Smoke Exposure: No service: No 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 Cognitive needs: No Hearing needs: No Vision needs: No Meds Allergies Allergy/AdvReac Type Severity Reaction Status Date / Time buprenorphine [Belbuca] Allergy Intermediate Anaphylaxis Verified 02/20/23 09:29 Active Medications: Current Medications Docusate Sodium (Docusate Sodium 100 Mg Capsule) 100 mg PO BID [facility] Last Admin: 03/15/23 10:41 Dose: Not Given Gabapentin (Gabapentin 300 Mg Capsule) 300 mg PO BID@0900,1200 [facility] Last Admin: 03/15/23 12:54 Dose: Not Given Gabapentin (Gabapentin 600 Mg Tablet) 600 mg PO BEDTIME [facility] Hydromorphone HCl (Hydromorphone Hcl 2 Mg Tablet) 2 mg PO Q6H PRN PRN Reason: Breakthrough Pain Last Admin: 03/15/23 04:55 Dose: 2 mg Dextrose/Sodium Chloride (D51/2ns) 1,000 mls @ 80 mls/hr IVCONT .[id number] [facility] Lorazepam (Lorazepam 1 Mg Tablet) 1 mg PO TID [facility] Magnesium Oxide (Magnesium Oxide 400 Mg Tablet) 400 mg PO DAILY [facility] Stop: 03/19/23 09:01 Last Admin: 03/15/23 10:55 Dose: Not Given Metoclopramide HCl (Metoclopramide Hcl 10 Mg/2 Ml Vial) 5 mg IVPUSH TIDAC [facility] Morphine Sulfate (Morphine Sulfate Er 15 Mg Tablet.Er) 15 mg PO BID [facility] Last Admin: 03/15/23 10:54 Dose: 15 mg Omeprazole (Omeprazole 20 Mg Capsule.Dr) 20 mg PO DAILY@0630 [facility] Last Admin: 03/15/23 05:25 Dose: 20 mg Ondansetron HCl (Ondansetron Odt 4 Mg Tab.Rapdis) 4 mg TRANSLINGU Q12H PRN PRN Reason: nausea and vomiting Last Admin: 03/14/23 20:52 Dose: 4 mg Polyethylene Glycol (Polyethylene Glycol 3350 17 Gm Powd.Pack) 17 gm PO DAILY [facility] Last Admin: 03/15/23 10:55 Dose: Not Given Potassium Chloride (Potassium Chloride Er 10 Meq Tablet.Er) 10 meq PO BID [facility] Stop: 03/21/23 09:01 Last Admin: 03/15/23 10:54 Dose: Not Given Prednisone (Prednisone 5 Mg Tablet) 5 mg PO BID [facility] Last Admin: 03/15/23 10:55 Dose: Not Given Senna (Sennosides 8.6 Mg Tablet) 17.2 mg PO BEDTIME PRN PRN Reason: Constipation Sertraline HCl (Sertraline Hcl 50 Mg Tablet) 50 mg PO DAILY [facility] Last Admin: 03/15/23 10:55 Dose: Not Given Vancomycin HCl (Vancomycin Hcl 125 Mg Capsule) 125 mg PO QID [facility] Last Admin: 03/15/23 14:09 Dose: 125 mg Home Medications Medication Instructions Recorded Confirmed Last Taken Type alendronate 70 mg tablet 70 mg PO QWEEK 02/02/23 03/14/23 Unknown History celecoxib 200 mg capsule 200 mg PO BID PRN pain 02/02/23 03/14/23 Unknown History ferrous sulfate 325 mg (65 mg 325 mg PO BID 02/02/23 03/14/23 Unknown History iron) tablet prednisone 5 mg tablet 5 mg PO BID 02/02/23 03/14/23 Unknown History sertraline 50 mg tablet 50 mg PO DAILY 02/02/23 03/14/23 Unknown History cefpodoxime 100 mg tablet 100 mg PO BID 03/14/23 03/14/23 Unknown History docusate sodium 100 mg capsule 100 mg PO BID 03/14/23 03/14/23 Unknown History gabapentin 300 mg capsule 300 mg PO BID@0900,1200 03/14/23 03/14/23 Unknown History hydromorphone 2 mg tablet 2 mg PO Q6H PRN Breakthrough Pain 03/14/23 03/14/23 Unknown History lorazepam 1 mg tablet 1 mg PO BID PRN anxiety 03/14/23 03/14/23 Unknown History magnesium oxide 400 mg PO DAILY 03/14/23 03/14/23 Unknown History morphine 15 mg tablet,extended 15 mg PO BID 03/14/23 03/14/23 Unknown History release pantoprazole 40 mg tablet,delayed 40 mg PO DAILY 03/14/23 03/14/23 Unknown History release polyethylene glycol 3350 17 gram 17 g PO DAILY 03/14/23 03/14/23 Unknown History oral powder packet sennosides 8.6 mg tablet (senna) 17.2 mg PO BEDTIME PRN Constipation 03/14/23 03/14/23 Unknown History Physical Exam Vital Signs and Narrative: Vital Signs: Last Vital Signs Temp 97.6 F 03/15/23 16:10 Pulse 80 03/15/23 16:10 Resp 18 03/15/23 16:10 BP 118/65 03/15/23 16:10 Pulse Ox 99 03/15/23 16:10 O2 Del Method Room Air 03/15/23 16:10 O2 Flow Rate 98 03/14/23 20:02 BMI result Body Mass Index 16.6 General: AO X 3, cachexia Resp: CTA bilateral, no accessory muscles used CVS: S1,S2,RRR GI: soft, non tender, non distended Neuro: motor grossly intact, alert Psych: appropriate affect, appropriate insight Results Labs 03/14/23 11:57 03/14/23 11:58 Labs: Laboratory Results - last 24 hr 03/15/23 03:32 Stl C. cayetanensis PCR Cancelled Stool Rotavirus A PCR Cancelled Stl Adenov F 40/41 PCR Cancelled Stool Astrovirus (PCR) Cancelled Stool Campylobacter PCR Cancelled Stool Cryptosporidium PCR Cancelled Stl Sh Tox Pr E STEC PCR Cancelled Stool E coli O157 PCR Cancelled Stl Enterotoxigenic E PCR Cancelled Stool EPEC (PCR) Cancelled Stool EAEC (PCR) Cancelled Stl E. histolytica PCR Cancelled Stool Giardia Lamblia PCR Cancelled Stl P. shigelloides PCR Cancelled Stool Salmonella PCR Cancelled Stool Sapovirus (PCR) Cancelled Stl Shigella/EIEC PCR Cancelled St Y.enterocolitica PCR Cancelled Stool Vibrio (PCR) Cancelled Stl Vibrio cholerae PCR Cancelled Stl Norovirus GI/GII PCR Cancelled C. difficile Tox B Gene POSITIVE A* C. difficile Toxin A&B Positive A* C. difficile Interpret SEE NOTE Assessment and Plan (1) Nausea & vomiting: Status: Acute Plan 67F PMH metastatic squamous cell carcinoma of cervix (no longer on chemo, but most recent PET 10/2022 showed good response), chronic pain syndrome with opiate dependence, RA, presented with nausea and vomiting Intractable nausea and vomiting Support with IV fluids, antiemetics Check CT abdomen Moderate protein calorie malnutrition Encourage p.o. intake Metastatic squamous cell carcinoma of cervix Should follow up outpatient with Oncology to determine status Most recently seemed to be responding to treatment Unclear if appropriate for hospice at this time Chronic pain syndrome with opiate dependence Continue opiate therapy Recent UTI Asymptomatic, urine culture negative, DC antibiotics C diff colitis P.o. vancomycin Contact precautions History of rheumatoid arthritis Will double prednisone for acute illness Mood disorder Continue sertraline, Ativan Osteoporosis Hold alendronate DVT prophylaxis with Lovenox DNR/DNI Patient with intractable nausea and vomiting, cachexia, requiring IV fluids to avoid severe dehydration, expected to require at least 2 midnights inpatient until patient able to take adequate oral intake Quality Stroke Does the patient have a stroke diagnosis?: No VTE Prior VTE?: No VTE Risk Level:: Medical - moderate - high VTE Device Contraindication: Treatment Not Indicated VTE Drug Contraindication: N/A - Med Ordered
[2023-03-15 17:38] VITALS: BP 125/72; PULSE 77; RESP 18; TEMP 36.4; O2SAT 96
--- NOTE | 2023-03-15 17:46 | PC.NURSE ---
pt medicated for breakthrough pain 10/10 with PO Dilaudid. IV fluids infusing on pump per mar
--- NOTE | 2023-03-15 17:53 | MHC.CM.ED ---
Pt to be admitted. Pt and son/HCP Kevin aware. CM spoke with Kevin. He states he has spoken with [facility], but would like to speak with his mother regarding any decisions regarding hospice. Pt reports good effects from compazine for nausea. Hospice notified of patient admission via [facility]. Dr. Flores unsure if patient needs hospice at this time. CT abd ordered. CM will follow for d/c needs. IMM completed and copy given.
--- NOTE | 2023-03-15 20:36 | PC.NURSE ---
Pt was cleaned and repositioned for comfort. Pt being transported upstairs at this time
[2023-03-15 20:40] VITALS: BMI 18.1
[2023-03-15 21:16] VITALS: BP 125/62; PULSE 72; RESP 18; TEMP 36.4; O2SAT 98
[2023-03-16 00:06] VITALS: BP 120/64; PULSE 71; RESP 18; TEMP 37; O2SAT 100
[2023-03-16 07:25] VITALS: BP 118/65; PULSE 67; RESP 16; TEMP 36.1; O2SAT 98
--- NOTE | 2023-03-16 09:53 | HO.PM.IMPN ---
Subjective Subjective Date of Service: 03/16/23 Interval History: still feeling unwell Physical Exam Vital Signs: Vital Signs: Last Vital Signs Temp 97 F 03/16/23 07:25 Pulse 67 03/16/23 07:25 Resp 16 03/16/23 07:25 BP 118/65 03/16/23 07:25 Pulse Ox 98 03/16/23 07:25 O2 Del Method Room Air 03/16/23 07:25 O2 Flow Rate 98 03/14/23 20:02 BMI result Body Mass Index 18.1 Const: General: comfortable and no acute distress Resp: Effort & Inspection: normal respiratory effort Cardio: Rate: regular rate GI: Palpation (GI): Soft to palpation, not firm, nontender and no guarding Objective Data Active Medications Docusate Sodium (Docusate Sodium 100 Mg Capsule) 100 mg PO BID [facility] Last Admin: 03/15/23 20:58 Dose: Not Given Documented By: LISSET Non-Admin Reason: Patient Refused Enoxaparin Sodium (Enoxaparin Sodium 40 Mg/0.4 Ml Syringe) 40 mg SUBCUT Q24H [facility] Gabapentin (Gabapentin 300 Mg Capsule) 300 mg PO BID@0900,1200 [facility] Last Admin: 03/15/23 12:54 Dose: Not Given Documented By: KAVITHA Non-Admin Reason: Patient Refused Gabapentin (Gabapentin 600 Mg Tablet) 600 mg PO BEDTIME [facility] Last Admin: 03/15/23 20:58 Dose: Not Given Documented By: LISSET Non-Admin Reason: Patient Refused Hydromorphone HCl (Hydromorphone Hcl 2 Mg Tablet) 2 mg PO Q6H PRN PRN Reason: Breakthrough Pain Last Admin: 03/16/23 05:21 Dose: 2 mg Documented By: LISSET Dextrose/Sodium Chloride (D51/2ns) 1,000 mls @ 80 mls/hr IVCONT .[id number] [facility] Last Infusion: 03/16/23 06:18 Dose: Infused Documented By: LISSET Lorazepam (Lorazepam 1 Mg Tablet) 1 mg PO TID [facility] Last Admin: 03/15/23 21:43 Dose: 1 mg Documented By: LISSET Magnesium Oxide (Magnesium Oxide 400 Mg Tablet) 400 mg PO DAILY [facility] Stop: 03/19/23 09:01 Last Admin: 03/15/23 10:55 Dose: Not Given Documented By: KAVITHA Non-Admin Reason: Patient Refused Morphine Sulfate (Morphine Sulfate Er 15 Mg Tablet.Er) 15 mg PO BID [facility] Last Admin: 03/15/23 21:42 Dose: 15 mg Documented By: LISSET Omeprazole (Omeprazole 20 Mg Capsule.Dr) 20 mg PO DAILY@0630 [facility] Last Admin: 03/16/23 05:21 Dose: 20 mg Documented By: LISSET Ondansetron HCl (Ondansetron Odt 4 Mg Tab.Rapdis) 4 mg TRANSLINGU Q12H PRN PRN Reason: nausea and vomiting Last Admin: 03/14/23 20:52 Dose: 4 mg Documented By: TORIN Ondansetron HCl (Ondansetron Hcl 4 Mg/2 Ml Vial) 4 mg IVPUSH Q4H PRN PRN Reason: Nausea and Vomiting Last Admin: 03/16/23 02:21 Dose: 4 mg Documented By: LISSET Polyethylene Glycol (Polyethylene Glycol 3350 17 Gm Powd.Pack) 17 gm PO DAILY [facility] Last Admin: 03/15/23 10:55 Dose: Not Given Documented By: KAVITHA Non-Admin Reason: diarrhea Potassium Chloride (Potassium Chloride Er 10 Meq Tablet.Er) 10 meq PO BID [facility] Stop: 03/21/23 09:01 Last Admin: 03/15/23 20:59 Dose: Not Given Documented By: LISSET Non-Admin Reason: Patient Refused Prednisone (Prednisone 5 Mg Tablet) 10 mg PO BID [facility] Last Admin: 03/15/23 20:59 Dose: Not Given Documented By: LISSET Non-Admin Reason: Patient Refused Prochlorperazine Edisylate (Prochlorperazine Edisylate 10 Mg/2 Ml Vial) 5 mg IVPUSH Q6H PRN PRN Reason: Nausea and Vomiting Last Admin: 03/16/23 05:53 Dose: 5 mg Documented By: LISSET Senna (Sennosides 8.6 Mg Tablet) 17.2 mg PO BEDTIME PRN PRN Reason: Constipation Sertraline HCl (Sertraline Hcl 50 Mg Tablet) 50 mg PO DAILY [facility] Last Admin: 03/15/23 10:55 Dose: Not Given Documented By: KAVITHA Non-Admin Reason: Patient Refused Sodium Chloride (0.9 % Sodium Chloride Flush 3 Ml Syringe) 3 ml IVFLUSH QSHIFT [facility] Last Admin: 03/16/23 08:26 Dose: Not Given Documented By: CELINA Non-Admin Reason: IV Running Vancomycin HCl (Vancomycin Hcl 125 Mg Capsule) 125 mg PO QID [facility] Last Admin: 03/15/23 21:43 Dose: 125 mg Documented By: LISSET Labs 03/16/23 05:32 03/16/23 08:40 Labs: Laboratory Results - last 24 hr 03/15/23 03/16/23 03/16/23 03:32 05:32 07:55 MCV 85.4 MCH 27.0 MCHC 31.7 RDW 16.0 Plt Count 353 MPV 9.8 Absolute Nucleated RBC 0.000 Nucleated RBC % (auto) 0.0 Hold Purple Top SEE NOTE Anion Gap Estim Creat Clear Calc Estimated GFR POC Glucose 107 Fasting Glucose Calcium Magnesium Stl C. cayetanensis PCR Cancelled Stool Rotavirus A PCR Cancelled Stl Adenov F PCR Cancelled Stool Astrovirus (PCR) Cancelled Stool Campylobacter PCR Cancelled Stool Cryptosporidium PCR Cancelled Stl Sh Tox Pr E STEC PCR Cancelled Stool E coli O157 PCR Cancelled Stl Enterotoxigenic E PCR Cancelled Stool EPEC (PCR) Cancelled Stool EAEC (PCR) Cancelled Stl E. histolytica PCR Cancelled Stool Giardia Lamblia PCR Cancelled Stl P. shigelloides PCR Cancelled Stool Salmonella PCR Cancelled Stool Sapovirus (PCR) Cancelled Stl Shigella/EIEC PCR Cancelled St Y.enterocolitica PCR Cancelled Stool Vibrio (PCR) Cancelled Stl Vibrio cholerae PCR Cancelled Stl Norovirus GI/GII PCR Cancelled 03/16/23 08:40 MCV MCH MCHC RDW Plt Count MPV Absolute Nucleated RBC Nucleated RBC % (auto) Hold Purple Top Anion Gap 10 L Estim Creat Clear Calc 82.5 Estimated GFR > 60 POC Glucose Fasting Glucose 111 H Calcium 9.1 D Magnesium 1.7 Stl C. cayetanensis PCR Stool Rotavirus A PCR Stl Adenov F 40/ PCR Stool Astrovirus (PCR) Stool Campylobacter PCR Stool Cryptosporidium PCR Stl Sh Tox Pr E STEC PCR Stool E coli O157 PCR Stl Enterotoxigenic E PCR Stool EPEC (PCR) Stool EAEC (PCR) Stl E. histolytica PCR Stool Giardia Lamblia PCR Stl P. shigelloides PCR Stool Salmonella PCR Stool Sapovirus (PCR) Stl Shigella/EIEC PCR St Y.enterocolitica PCR Stool Vibrio (PCR) Stl Vibrio cholerae PCR Stl Norovirus GI/GII PCR Assessment and Plan (1) Nausea & vomiting: Status: Acute Plan 67F PMH metastatic squamous cell carcinoma of cervix (no longer on chemo, but most recent PET 10/2022 showed good response), chronic pain syndrome with opiate dependence, RA, presented with nausea and vomiting Intractable nausea and vomiting Supporting with IV fluids, antiemetics CT abdomen with ?SBO, though has had previous SBFT negative, more likely motility issue acute on chronic hypokalemia replace and monitro, nephro eval check urine lytes Moderate protein calorie malnutrition Encourage p.o. intake Metastatic squamous cell carcinoma of cervix Should follow up outpatient with Oncology to determine status Most recently seemed to be responding to treatment Unclear if appropriate for hospice at this time Chronic pain syndrome with opiate dependence Continue opiate therapy Recent UTI Asymptomatic, urine culture negative C diff colitis P.o. vancomycin Contact precautions History of rheumatoid arthritis doubled prednisone for acute illness Mood disorder Continue sertraline, Ativan Osteoporosis Hold alendronate DVT prophylaxis with Lovenox DNR/DNI reason for continued hospitalization:hypokalemia, not tolerating po Quality Stroke Does the patient have a stroke diagnosis?: No VTE Prior VTE?: No VTE Risk Level:: Medical - moderate - high VTE Device Contraindication: Treatment Not Indicated VTE Drug Contraindication: N/A - Med Ordered
[2023-03-16 15:16] VITALS: BP 140/77; PULSE 73; RESP 18; TEMP 36; O2SAT 97
--- NOTE | 2023-03-16 16:14 | PM.CNGS ---
History of Present Illness Consult details Consult date: 03/16/23 Requesting physician: Bong Flores Narrative: Pt is known to service from the past. Pt with metastatic cancer and has been having issues with poor gi motility - she has issues with nausea and vomiting and unable to eat - pt has had converstations about hospice. She had been doing better on reglan and erythromycin but she says since she was dc here she was at other facilities such as [facility]. It seem like on 03/[address] scan with po contrast was done which shows dilated small bowel and stomach but contrast has gone all the way to rectum and colon so not a complete mechanical obstruction - discussed if pt would agree to ng tube decompression but she says she had one before and said she would not get another one again [facility] Past Medical History Medical History Delayed gastric emptying Squamous cell carcinoma of cervix Complex regional pain syndrome i of lower limb, bilateral Anxiety with depression Chronic pain syndrome Osteoporosis Cervical cancer Opiate abuse, episodic Osteoarthritis of both knees Primary osteoarthritis of knees, bilateral Seropositive rheumatoid arthritis Back pain Family History Family History Father Acute CVA (cerebrovascular accident) Mother Hypertension Hypercholesterolemia Brother Liver transplant status Family history of thyroid problem Surgical History Surgical History History of D&C History of tonsillectomy History of appendectomy History of cholecystectomy Social History Social History Household Members: Family Housing: House Are you a primary hospice care transitions coordinator to a significant other at home: Yes (mom) Do you presently have visiting nurse or other home services: Yes Alcohol intake: never Comment: refused bed alarm Patient Tobacco Use Status: Former Tobacco user Quit Date: 2016 Tobacco use type: Cigarette e-Cigarette/Vaping Use: Never Used Second Hand Smoke Exposure: No Substance Use Type: Prescription Drugs Advance Directives Date on File: 03/15/23 service: No 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 Cognitive needs: No Hearing needs: No Vision needs: No Meds Allergies Allergy/AdvReac Type Severity Reaction Status Date / Time buprenorphine [Belbuca] Allergy Intermediate Anaphylaxis Verified 02/20/23 09:29 Active Medications: Current Medications Docusate Sodium (Docusate Sodium 100 Mg Capsule) 100 mg PO BID REPLACED BY [facility] Last Admin: 03/16/23 09:53 Dose: Not Given Enoxaparin Sodium (Enoxaparin Sodium 40 Mg/0.4 Ml Syringe) 40 mg SUBCUT Q24H REPLACED BY [facility] Last Admin: 03/16/23 09:53 Dose: Not Given Gabapentin (Gabapentin 300 Mg Capsule) 300 mg PO BID@0900,1200 REPLACED BY [facility] Last Admin: 03/16/23 13:28 Dose: Not Given Gabapentin (Gabapentin 600 Mg Tablet) 600 mg PO BEDTIME REPLACED BY [facility] Last Admin: 03/15/23 20:58 Dose: Not Given Hydromorphone HCl (Hydromorphone Hcl 2 Mg Tablet) 2 mg PO Q6H PRN PRN Reason: Breakthrough Pain Last Admin: 03/16/23 11:24 Dose: 2 mg Dextrose/Sodium Chloride (D51/2ns) 1,000 mls @ 80 mls/hr IVCONT .[id number] REPLACED BY [facility] Last Admin: 03/16/23 11:24 Dose: 80 mls/hr Lorazepam (Lorazepam 1 Mg Tablet) 1 mg PO TID REPLACED BY [facility] Last Admin: 03/16/23 14:48 Dose: 1 mg Magnesium Oxide (Magnesium Oxide 400 Mg Tablet) 400 mg PO DAILY REPLACED BY [facility] Stop: 03/19/23 09:01 Last Admin: 03/16/23 09:58 Dose: Not Given Metoclopramide HCl (Metoclopramide Hcl 10 Mg/2 Ml Vial) 5 mg IVPUSH Q6H REPLACED BY [facility] Last Admin: 03/16/23 14:47 Dose: 5 mg Morphine Sulfate (Morphine Sulfate Er 15 Mg Tablet.Er) 15 mg PO BID REPLACED BY [facility] Last Admin: 03/16/23 09:47 Dose: 15 mg Omeprazole (Omeprazole 20 Mg Capsule.Dr) 20 mg PO DAILY@0630 REPLACED BY [facility] Last Admin: 03/16/23 05:21 Dose: 20 mg Ondansetron HCl (Ondansetron Odt 4 Mg Tab.Rapdis) 4 mg TRANSLINGU Q12H PRN PRN Reason: nausea and vomiting Last Admin: 03/14/23 20:52 Dose: 4 mg Ondansetron HCl (Ondansetron Hcl 4 Mg/2 Ml Vial) 4 mg IVPUSH Q4H PRN PRN Reason: Nausea and Vomiting Last Admin: 03/16/23 09:47 Dose: 4 mg Polyethylene Glycol (Polyethylene Glycol 3350 17 Gm Powd.Pack) 17 gm PO DAILY REPLACED BY [facility] Last Admin: 03/16/23 09:57 Dose: Not Given Potassium Chloride (Potassium Chloride Er 10 Meq Tablet.Er) 10 meq PO BID REPLACED BY [facility] Stop: 03/21/23 09:01 Last Admin: 03/16/23 09:59 Dose: Not Given Prednisone (Prednisone 5 Mg Tablet) 10 mg PO BID REPLACED BY [facility] Last Admin: 03/16/23 09:57 Dose: Not Given Senna (Sennosides 8.6 Mg Tablet) 17.2 mg PO BEDTIME PRN PRN Reason: Constipation Sertraline HCl (Sertraline Hcl 50 Mg Tablet) 50 mg PO DAILY REPLACED BY [facility] Last Admin: 03/16/23 09:57 Dose: Not Given Sodium Chloride (0.9 % Sodium Chloride Flush 3 Ml Syringe) 3 ml IVFLUSH QSHIFT REPLACED BY [facility] Last Admin: 03/16/23 08:26 Dose: Not Given Vancomycin HCl (Vancomycin Hcl 125 Mg Capsule) 125 mg PO QID REPLACED BY [facility] Last Admin: 03/16/23 14:49 Dose: Not Given Home Medications Medication Instructions Recorded Confirmed Last Taken Type alendronate 70 mg tablet 70 mg PO QWEEK 02/02/23 03/14/23 Unknown History celecoxib 200 mg capsule 200 mg PO BID PRN pain 02/02/23 03/14/23 Unknown History ferrous sulfate 325 mg (65 mg 325 mg PO BID 02/02/23 03/14/23 Unknown History iron) tablet prednisone 5 mg tablet 5 mg PO BID 02/02/23 03/14/23 Unknown History sertraline 50 mg tablet 50 mg PO DAILY 02/02/23 03/14/23 Unknown History cefpodoxime 100 mg tablet 100 mg PO BID 03/14/23 03/14/23 Unknown History docusate sodium 100 mg capsule 100 mg PO BID 03/14/23 03/14/23 Unknown History gabapentin 300 mg capsule 300 mg PO BID@0900,1200 03/14/23 03/14/23 Unknown History hydromorphone 2 mg tablet 2 mg PO Q6H PRN Breakthrough Pain 03/14/23 03/14/23 Unknown History lorazepam 1 mg tablet 1 mg PO BID PRN anxiety 03/14/23 03/14/23 Unknown History magnesium oxide 400 mg PO DAILY 03/14/23 03/14/23 Unknown History morphine 15 mg tablet,extended 15 mg PO BID 03/14/23 03/14/23 Unknown History release pantoprazole 40 mg tablet,delayed 40 mg PO DAILY 03/14/23 03/14/23 Unknown History release polyethylene glycol 3350 17 gram 17 g PO DAILY 03/14/23 03/14/23 Unknown History oral powder packet sennosides 8.6 mg tablet (senna) 17.2 mg PO BEDTIME PRN Constipation 03/14/23 03/14/23 Unknown History Physical Exam Vital Signs: Vital Signs: Last Vital Signs Temp 96.8 F 03/16/23 15:16 Pulse 73 03/16/23 15:16 Resp 18 03/16/23 15:16 BP 140/77 H 03/16/23 15:16 Pulse Ox 97 03/16/23 15:16 O2 Del Method Room Air 03/16/23 15:16 O2 Flow Rate 98 03/14/23 20:02 BMI result Body Mass Index 18.1 GI: Other: abdomen soft flat nondistended mild diffuse pressure not pain vomiting thin bilious fluid Results Labs 03/16/23 05:32 03/16/23 08:40 Labs: Abnormal lab results 03/16/23 03/16/23 Range/Units 05:32 08:40 RBC 3.91 L D (4.20-5.50) X10*6/uL Hgb 10.8 L D (12.0-16.0) g/dl Hct 32.1 L D (37.0-47.0) % MPV 9.3 L (9.4-12.3) fL Potassium 2.6 L D (3.3-5.1) mmol/L Chloride 91 L (96-108) mmol/L Carbon Dioxide 37 H (22-29) mmol/L Anion Gap 10 L (12-20) Fasting Glucose 111 H (60-99) mg/dL TSH 4.85 H (0.32-4.0) uIU/mL Short CBC 03/16/23 Range/Units 05:32 WBC 6.3 (4.8-10.8) X10*3/uL Hgb 10.8 L D (12.0-16.0) g/dl Hct 32.1 L D (37.0-47.0) % Plt Count 350 (160-400) X10*3/uL BMP 03/16/23 08:40 Sodium 135 Potassium 2.6 L D Chloride 91 L Carbon Dioxide 37 H BUN 12 Creatinine 0.53 Calcium 9.1 D Urine 03/14/23 Range/Units 13:20 Urine Color Dark Yellow Urine Appearance Cloudy Urine pH 5.5 (5.0-9.0) Ur Specific [place] >= 1.030 H (1.005-1.025) Urine Protein 30 (1+) H (Neg-Trace) mg/dL Urine Glucose (UA) Negative (Negative) mg/dL All other labs normal. Imaging Abdomen CT scan report/results: report reviewed and image reviewed CT scan - pelvis: report reviewed and image reviewed Assessment and Plan (1) Nausea & vomiting: Status: Acute Plan 67 year old female with metastatic cervical cancer with GI motility issues - ? due to functional issues with some degree of mechanicl issues - overall less mechanical- ? carcinomatosis - she did better with promobility agents so reume that. She wants more pain meds but that slows her transit times also - hospice needs to be brought in with plans to balance the end care here if continues to vomit then ng tube placement could consider palliative gtube for decompression but pt cannot be guaranteed sufficient nutrition for usp survival once again - maximize motility meds. correct electrolytes no surgical intervention at this time Procedures Date of Service Date of Service: 03/16/23
[2023-03-16 19:09] VITALS: BP 133/88; PULSE 84; RESP 16; TEMP 36.4; O2SAT 97
[2023-03-17 00:23] VITALS: BP 109/63; PULSE 71; RESP 18; TEMP 37.1; O2SAT 96
[2023-03-17 07:24] VITALS: BP 109/71; PULSE 80; RESP 16; TEMP 36.4; O2SAT 96
[2023-03-17 08:04] LABS: Anion Gap 10 (12-20); Blood Urea Nitrogen 8 mg/dL (9-16); Calcium 9.4 mg/dL (8.4-10.2); Carbon Dioxide 37 mmol/L (22-29); Chloride 87 mmol/L (96-108); Creatinine Clr Calc Pharmacy 84.1; Estimated Glomerular Filt Rate > 60; Glucose Fasting 113 mg/dL (60-99); Magnesium 2.3 mg/dL (1.6-2.6); Potassium 2.6 mmol/L (3.3-5.1); Sodium 131 mmol/L (135-145)
--- NOTE | 2023-03-17 09:14 | HO.PM.IMPN ---
Subjective Subjective Date of Service: 03/17/23 Interval History: nausea Physical Exam Vital Signs: Vital Signs: Last Vital Signs Temp 97.6 F 03/17/23 07:24 Pulse 80 03/17/23 07:24 Resp 16 03/17/23 07:24 BP 109/71 03/17/23 07:24 Pulse Ox 96 03/17/23 07:24 O2 Del Method Room Air 03/17/23 07:24 O2 Flow Rate 98 03/14/23 20:02 BMI result Body Mass Index 18.1 GI: Other: abdomen soft flat nondistended mild diffuse pressure not pain vomiting thin bilious fluid Objective Data Active Medications Docusate Sodium (Docusate Sodium 100 Mg Capsule) 100 mg PO BID [facility] Last Admin: 03/16/23 22:02 Dose: Not Given Documented By: LISSET Non-Admin Reason: Patient Refused Enoxaparin Sodium (Enoxaparin Sodium 40 Mg/0.4 Ml Syringe) 40 mg SUBCUT Q24H [facility] Last Admin: 03/16/23 09:53 Dose: Not Given Documented By: CELINA Non-Admin Reason: Patient Refused Gabapentin (Gabapentin 300 Mg Capsule) 300 mg PO BID@0900,1200 [facility] Last Admin: 03/16/23 13:28 Dose: Not Given Documented By: CELINA Non-Admin Reason: Patient Refused Gabapentin (Gabapentin 600 Mg Tablet) 600 mg PO BEDTIME [facility] Last Admin: 03/16/23 22:02 Dose: Not Given Documented By: LISSET Non-Admin Reason: Patient Refused Hydromorphone HCl (Hydromorphone Hcl 2 Mg Tablet) 2 mg PO Q6H PRN PRN Reason: Breakthrough Pain Last Admin: 03/16/23 17:48 Dose: 2 mg Documented By: RACHID Hydromorphone HCl (Hydromorphone Hcl 1 Mg/Ml Syringe) 1 mg IVPUSH Q4H PRN; Protocol PRN Reason: Pain, Severe (Pain Scale 7-10) Last Admin: 03/17/23 06:37 Dose: 1 mg Documented By: TEJA Sodium Chloride (Ns) 1,000 mls @ 80 mls/hr IVCONT .[id number] [facility] Potassium Chloride (Potassium Chloride/H20) 10 meq in 100 mls @ 100 mls/hr IV Q1H [facility] Stop: 03/17/23 12:29 Lorazepam (Lorazepam 1 Mg Tablet) 1 mg PO TID [facility] Last Admin: 03/17/23 08:02 Dose: 1 mg Documented By: CELINA Magnesium Oxide (Magnesium Oxide 400 Mg Tablet) 400 mg PO DAILY [facility] Stop: 03/19/23 09:01 Last Admin: 03/16/23 09:58 Dose: Not Given Documented By: CELINA Non-Admin Reason: Patient Refused Metoclopramide HCl (Metoclopramide Hcl 10 Mg/2 Ml Vial) 5 mg IVPUSH Q6H [facility] Last Admin: 03/17/23 08:02 Dose: 5 mg Documented By: CELINA Morphine Sulfate (Morphine Sulfate Er 15 Mg Tablet.Er) 15 mg PO BID [facility] Last Admin: 03/16/23 22:02 Dose: Not Given Documented By: LISSET Non-Admin Reason: Nausea Omeprazole (Omeprazole 20 Mg Capsule.Dr) 20 mg PO DAILY@0630 [facility] Last Admin: 03/17/23 06:19 Dose: Not Given Documented By: TEJA Non-Admin Reason: Patient Refused Ondansetron HCl (Ondansetron Odt 4 Mg Tab.Rapdis) 4 mg TRANSLINGU Q12H PRN PRN Reason: nausea and vomiting Last Admin: 03/14/23 20:52 Dose: 4 mg Documented By: TORIN Ondansetron HCl (Ondansetron Hcl 4 Mg/2 Ml Vial) 4 mg IVPUSH Q4H PRN PRN Reason: Nausea and Vomiting Last Admin: 03/17/23 06:41 Dose: 4 mg Documented By: TEJA Polyethylene Glycol (Polyethylene Glycol 3350 17 Gm Powd.Pack) 17 gm PO DAILY [facility] Last Admin: 03/16/23 09:57 Dose: Not Given Documented By: CELINA Non-Admin Reason: Patient refused: diarrhea. Potassium Chloride (Potassium Chloride Er 10 Meq Tablet.Er) 10 meq PO BID [facility] Stop: 03/21/23 09:01 Last Admin: 03/16/23 22:02 Dose: Not Given Documented By: LISSET Non-Admin Reason: Nausea Prednisone (Prednisone 5 Mg Tablet) 10 mg PO BID [facility] Last Admin: 03/16/23 22:02 Dose: Not Given Documented By: LISSET Non-Admin Reason: Nausea Senna (Sennosides 8.6 Mg Tablet) 17.2 mg PO BEDTIME PRN PRN Reason: Constipation Sertraline HCl (Sertraline Hcl 50 Mg Tablet) 50 mg PO DAILY [facility] Last Admin: 03/16/23 09:57 Dose: Not Given Documented By: CELINA Non-Admin Reason: Patient Refused Sodium Chloride (0.9 % Sodium Chloride Flush 3 Ml Syringe) 3 ml IVFLUSH QSHIFT [facility] Last Admin: 03/17/23 08:02 Dose: 3 ml Documented By: CELINA Vancomycin HCl (Vancomycin Hcl 125 Mg Capsule) 125 mg PO QID [facility] Last Admin: 03/16/23 20:04 Dose: 125 mg Documented By: LISSET Labs 03/17/23 06:55 03/17/23 06:55 Labs: Laboratory Results - last 24 hr 03/16/23 03/16/23 03/17/23 05:32 08:40 06:55 MCV 82.1 83.1 MCH 27.6 27.6 MCHC 33.6 33.2 RDW 15.9 Plt Count 350 420 H MPV 9.3 L 9.5 Absolute Nucleated RBC 0.000 Nucleated RBC % (auto) 0.0 Anion Gap 10 L 10 L Estim Creat Clear Calc 82.5 84.1 Estimated GFR > 60 > 60 Fasting Glucose 111 H 113 H Calcium 9.1 D 9.4 Magnesium 1.7 2.3 TSH 4.85 H Free T4 1.01 Random Cortisol 19.5 Assessment and Plan (1) Nausea & vomiting: Status: Acute Plan 67F PMH metastatic squamous cell carcinoma of cervix (no longer on chemo, but most recent PET 10/2022 showed good response), chronic pain syndrome with opiate dependence, RA, presented with nausea and vomiting Intractable nausea and vomiting Supporting with IV fluids, antiemetics CT abdomen with ?SBO, though has had previous SBFT negative, more likely motility issue surgery appreciatedf - continue reglan acute on chronic hypokalemia replace and monitor, nephro eval check urine lytes Moderate protein calorie malnutrition Encourage p.o. intake Metastatic squamous cell carcinoma of cervix Should follow up outpatient with Oncology to determine status Most recently seemed to be responding to treatment, though may now have progression Chronic pain syndrome with opiate dependence Continue opiate therapy Recent UTI Asymptomatic, urine culture negative C diff colitis P.o. vancomycin Contact precautions History of rheumatoid arthritis doubled prednisone for acute illness Mood disorder Continue sertraline, Ativan Osteoporosis Hold alendronate DVT prophylaxis with Lovenox DNR/DNI reason for continued hospitalization:hypokalemia, not tolerating po Quality Stroke Does the patient have a stroke diagnosis?: No VTE Prior VTE?: No VTE Risk Level:: Medical - moderate - high VTE Device Contraindication: Treatment Not Indicated VTE Drug Contraindication: N/A - Med Ordered
--- NOTE | 2023-03-17 13:59 | PC.NURSE ---
Patient refusing IV potassium infusion at this time. Patient educated on importance of medication and current potassium level of 2.6mmol/L. Dr. Sandra araiza.
[2023-03-17 16:00] VITALS: BP 119/67; PULSE 68; RESP 16; TEMP 36.2; O2SAT 98
--- NOTE | 2023-03-17 17:19 | PM.EVENT ---
Event Note Date of Service: 03/18/23 Event Note: 67 yr old woman aith metastatic cervical CA Was treated with carboplatin, Taxol and Keytruda. C.Diff + h/o Right Adrenal mass persistent hypokalemia with alkalosis GI vs renal losses of K Check urine Chloride Check Aldosterone and PRA ( ordered) Replace K orally Full consult to follow Time Spent With Patient Time: Total time managing care of this patient today ____ minutes.
[2023-03-17 19:06] VITALS: BP 104/65; PULSE 68; RESP 18; TEMP 37; O2SAT 92
[2023-03-18 02:26] VITALS: BP 122/65; PULSE 72; RESP 18; TEMP 37.1; O2SAT 97
--- NOTE | 2023-03-18 06:00 | PC.NURSE ---
Pt agreed to take IV potassium, started on the first bag, med was on care home when pt decided she doesn't want to continue the rest of the dose because it hurts her, drip was slowed down, ice pack provided, tried to persuade for a new iv line but pt still refused.
[2023-03-18 07:30] LABS: Anion Gap 13 (12-20); Blood Urea Nitrogen 9 mg/dL (9-16); Carbon Dioxide 31 mmol/L (22-29); Chloride 91 mmol/L (96-108); Estimated Glomerular Filt Rate > 60; Glucose Fasting 67 mg/dL (60-99); Sodium 132 mmol/L (135-145)
[2023-03-18 07:57] VITALS: BP 110/70; PULSE 77; RESP 12; O2SAT 94
--- NOTE | 2023-03-18 08:45 | HO.PM.IMPN ---
Subjective Subjective Date of Service: 03/18/23 Interval History: nausea Physical Exam Vital Signs: Vital Signs: Last Vital Signs Temp 98.7 F 03/18/23 02:26 Pulse 77 03/18/23 07:57 Resp 12 03/18/23 07:57 BP 110/70 03/18/23 07:57 Pulse Ox 94 03/18/23 07:57 O2 Del Method Room Air 03/18/23 07:57 O2 Flow Rate 98 03/14/23 20:02 BMI result Body Mass Index 18.1 GI: Other: abdomen soft flat nondistended mild diffuse pressure not pain vomiting thin bilious fluid Objective Data Active Medications Docusate Sodium (Docusate Sodium 100 Mg Capsule) 100 mg PO BID [facility] Last Admin: 03/18/23 07:36 Dose: Not Given Documented By: CHAZ Non-Admin Reason: Diarrhea Enoxaparin Sodium (Enoxaparin Sodium 40 Mg/0.4 Ml Syringe) 40 mg SUBCUT Q24H [facility] Last Admin: 03/17/23 10:51 Dose: Not Given Documented By: CELINA Non-Admin Reason: Patient Refused Gabapentin (Gabapentin 300 Mg Capsule) 300 mg PO BID@0900,1200 [facility] Last Admin: 03/17/23 13:21 Dose: Not Given Documented By: CELINA Non-Admin Reason: Patient Asleep Gabapentin (Gabapentin 600 Mg Tablet) 600 mg PO BEDTIME [facility] Last Admin: 03/17/23 20:50 Dose: 600 mg Documented By: EFRAÍN Hydromorphone HCl (Hydromorphone Hcl 2 Mg Tablet) 2 mg PO Q6H PRN PRN Reason: Breakthrough Pain Last Admin: 03/16/23 17:48 Dose: 2 mg Documented By: RACHID Hydromorphone HCl (Hydromorphone Hcl 1 Mg/Ml Syringe) 1 mg IVPUSH Q4H PRN; Protocol PRN Reason: Pain, Severe (Pain Scale 7-10) Last Admin: 03/18/23 06:35 Dose: 1 mg Documented By: EFRAÍN Sodium Chloride (Ns) 1,000 mls @ 80 mls/hr IVCONT .[id number] [facility] Last Admin: 03/17/23 21:02 Dose: 80 mls/hr Documented By: EFRAÍN Potassium Chloride (Potassium Chloride/H20) 10 meq in 100 mls @ 100 mls/hr IV Q1H [facility] Stop: 03/18/23 11:44 Lorazepam (Lorazepam 1 Mg Tablet) 1 mg PO TID [facility] Last Admin: 03/17/23 20:50 Dose: 1 mg Documented By: EFRAÍN Magnesium Oxide (Magnesium Oxide 400 Mg Tablet) 400 mg PO DAILY [facility] Stop: 03/19/23 09:01 Last Admin: 03/17/23 10:51 Dose: Not Given Documented By: CELINA Non-Admin Reason: Patient Refused Metoclopramide HCl (Metoclopramide Hcl 10 Mg/2 Ml Vial) 5 mg IVPUSH Q6H [facility] Last Admin: 03/18/23 06:35 Dose: 5 mg Documented By: EFRAÍN Morphine Sulfate (Morphine Sulfate Er 15 Mg Tablet.Er) 15 mg PO BID [facility] Last Admin: 03/17/23 20:49 Dose: 15 mg Documented By: EFRAÍN Omeprazole (Omeprazole 20 Mg Capsule.Dr) 20 mg PO DAILY@0630 [facility] Last Admin: 03/18/23 05:36 Dose: 20 mg Documented By: EFRAÍN Ondansetron HCl (Ondansetron Odt 4 Mg Tab.Rapdis) 4 mg TRANSLINGU Q12H PRN PRN Reason: nausea and vomiting Last Admin: 03/14/23 20:52 Dose: 4 mg Documented By: TORIN Ondansetron HCl (Ondansetron Hcl 4 Mg/2 Ml Vial) 4 mg IVPUSH Q4H PRN PRN Reason: Nausea and Vomiting Last Admin: 03/18/23 02:46 Dose: 4 mg Documented By: EFRAÍN Polyethylene Glycol (Polyethylene Glycol 3350 17 Gm Powd.Pack) 17 gm PO DAILY [facility] Last Admin: 03/17/23 10:51 Dose: Not Given Documented By: CELINA Non-Admin Reason: Patient Refused Potassium Chloride (Potassium Chloride Er 10 Meq Tablet.Er) 10 meq PO BID [facility] Stop: 03/21/23 09:01 Last Admin: 03/17/23 20:54 Dose: Not Given Documented By: EFRAÍN Non-Admin Reason: Patient Refused Prednisone (Prednisone 5 Mg Tablet) 10 mg PO BID [facility] Last Admin: 03/17/23 20:50 Dose: 10 mg Documented By: EFRAÍN Senna (Sennosides 8.6 Mg Tablet) 17.2 mg PO BEDTIME PRN PRN Reason: Constipation Sertraline HCl (Sertraline Hcl 50 Mg Tablet) 50 mg PO DAILY [facility] Last Admin: 03/17/23 10:52 Dose: Not Given Documented By: CELINA Non-Admin Reason: Patient Refused Sodium Chloride (0.9 % Sodium Chloride Flush 3 Ml Syringe) 3 ml IVFLUSH QSHIFT [facility] Last Admin: 03/18/23 07:36 Dose: Not Given Documented By: CHAZ Non-Admin Reason: IV Running Vancomycin HCl (Vancomycin Hcl 125 Mg Capsule) 125 mg PO QID [facility] Last Admin: 03/17/23 20:50 Dose: 125 mg Documented By: EFRAÍN Labs 03/18/23 05:22 03/18/23 05:22 Labs: Laboratory Results - last 24 hr 03/18/23 05:22 MCV 85.0 MCH 27.5 MCHC 32.3 RDW 15.9 Plt Count 351 MPV 10.4 Absolute Nucleated RBC 0.000 Nucleated RBC % (auto) 0.0 Anion Gap 13 Estim Creat Clear Calc 77.0 Estimated GFR > 60 Fasting Glucose 67 Calcium 9.0 Assessment and Plan (1) Nausea & vomiting: Status: Acute Plan 67F PMH metastatic squamous cell carcinoma of cervix (no longer on chemo, but most recent PET 10/2022 showed good response), chronic pain syndrome with opiate dependence, RA, presented with nausea and vomiting Intractable nausea and vomiting Supporting with IV fluids, antiemetics CT abdomen with ?SBO, though has had previous SBFT negative, more likely motility issue surgery appreciatedf - continue reglan acute on chronic hypokalemia gi vs renal losses replace and monitor, nephro following check urine lytes, RAAS Moderate protein calorie malnutrition Encourage p.o. intake Metastatic squamous cell carcinoma of cervix Should follow up outpatient with Oncology to determine status Most recently seemed to be responding to treatment, though may now have progression, patient requesting hospice informational Chronic pain syndrome with opiate dependence Continue opiate therapy Recent UTI Asymptomatic, urine culture negative C diff colitis P.o. vancomycin Contact precautions History of rheumatoid arthritis doubled prednisone for acute illness Mood disorder Continue sertraline, Ativan Osteoporosis Hold alendronate DVT prophylaxis with Lovenox DNR/DNI reason for continued hospitalization:hypokalemia, not tolerating po Quality Stroke Does the patient have a stroke diagnosis?: No VTE Prior VTE?: No VTE Risk Level:: Medical - moderate - high VTE Device Contraindication: Treatment Not Indicated VTE Drug Contraindication: N/A - Med Ordered
[2023-03-18] MEDS: 0.9 % Sodium Chloride 1,000 ML 80 ML IVCONT (09:13)
--- NOTE | 2023-03-18 10:27 | P.CONNP_ITS ---
History of Present Illness Reason for Consult Consult date: 03/18/23 Reason for consult: Hypokalemia Chief Complaint Chief complaint: cdif History of Present Illness Narrative: 67F PMH metastatic squamous cell carcinoma of cervix (no longer on chemo, but most recent PET 10/2022 showed good response), chronic pain syndrome with opiate dependence, RA, presented with nausea and vomiting. Patient was recently [place] about 1 month prior [place] [facility] [place] and was also seen in between at [facility] for similar symptoms. Persistent hypokalemia. Recently she CT scan showed calcified right adrenal gland. She does have mild alkalosis as well. No significant hypertension Tested positive for C diff. Review of Systems Constitutional: Reports as per HPI, Denies anorexia, Denies fatigue, Denies fever(s) and Denies headache(s) Eyes: Denies blurry vision Denies headache(s) Cardiovascular: Denies chest pain, Denies pedal edema and Denies dyspnea Respiratory: Denies cough, Denies hemoptysis and Denies dyspnea Gastrointestinal: Denies diarrhea, Denies nausea and Denies vomiting Genitourinary: Denies hematuria, Denies urinary frequency and Denies urinary hesitancy Denies confusion, Denies headache(s) and Denies focal weakness Psychiatric: Denies confusion Endocrine: Denies cold intolerance, Denies fatigue and Denies polyuria PMFSH Past Medical History Medical History Delayed gastric emptying Squamous cell carcinoma of cervix Complex regional pain syndrome i of lower limb, bilateral Anxiety with depression Chronic pain syndrome Osteoporosis Cervical cancer Opiate abuse, episodic Osteoarthritis of both knees Primary osteoarthritis of knees, bilateral Seropositive rheumatoid arthritis Back pain Family History Family History Father Acute CVA (cerebrovascular accident) Mother Hypertension Hypercholesterolemia Brother Liver transplant status Family history of thyroid problem Surgical History Surgical History History of D&C History of tonsillectomy History of appendectomy History of cholecystectomy Social History Social History Household Members: Family Housing: House Are you a primary animal care giver to a significant other at home: Yes (mom) Do you presently have visiting nurse or other home services: Yes Alcohol intake: never Comment: refused bed alarm Patient Tobacco Use Status: Former Tobacco user Quit Date: 2016 Tobacco use type: Cigarette e-Cigarette/Vaping Use: Never Used Second Hand Smoke Exposure: No Substance Use Type: Prescription Drugs Advance Directives Date on File: 03/15/23 service: No 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 Cognitive needs: No Hearing needs: No Vision needs: No Meds Allergies Allergy/AdvReac Type Severity Reaction Status Date / Time buprenorphine [Belbuca] Allergy Intermediate Anaphylaxis Verified 02/20/23 09:29 Active Medications: Current Medications Docusate Sodium (Docusate Sodium 100 Mg Capsule) 100 mg PO BID [facility] Last Admin: 03/18/23 07:36 Dose: Not Given Enoxaparin Sodium (Enoxaparin Sodium 40 Mg/0.4 Ml Syringe) 40 mg SUBCUT Q24H [facility] Last Admin: 03/18/23 09:21 Dose: Not Given Gabapentin (Gabapentin 300 Mg Capsule) 300 mg PO BID@0900,1200 [facility] Last Admin: 03/18/23 09:21 Dose: Not Given Gabapentin (Gabapentin 600 Mg Tablet) 600 mg PO BEDTIME [facility] Last Admin: 03/17/23 20:50 Dose: 600 mg Hydromorphone HCl (Hydromorphone Hcl 2 Mg Tablet) 2 mg PO Q6H PRN PRN Reason: Breakthrough Pain Last Admin: 03/16/23 17:48 Dose: 2 mg Hydromorphone HCl (Hydromorphone Hcl 1 Mg/Ml Syringe) 1 mg IVPUSH Q4H PRN; Protocol PRN Reason: Pain, Severe (Pain Scale 7-10) Last Admin: 03/18/23 06:35 Dose: 1 mg Sodium Chloride (Ns) 1,000 mls @ 80 mls/hr IVCONT .[id number] [facility] Last Infusion: 03/18/23 09:22 Dose: 0 mls/hr Potassium Chloride (Potassium Chloride/H20) 10 meq in 100 mls @ 100 mls/hr IV Q1H [facility] Stop: 03/18/23 11:44 Last Admin: 03/18/23 09:08 Dose: 50 mls/hr Lorazepam (Lorazepam 1 Mg Tablet) 1 mg PO TID [facility] Last Admin: 03/18/23 09:00 Dose: 1 mg Magnesium Oxide (Magnesium Oxide 400 Mg Tablet) 400 mg PO DAILY [facility] Stop: 03/19/23 09:01 Last Admin: 03/18/23 09:01 Dose: Not Given Metoclopramide HCl (Metoclopramide Hcl 10 Mg/2 Ml Vial) 5 mg IVPUSH Q6H [facility] Last Admin: 03/18/23 06:35 Dose: 5 mg Morphine Sulfate (Morphine Sulfate Er 15 Mg Tablet.Er) 15 mg PO BID [facility] Last Admin: 03/18/23 09:01 Dose: 15 mg Omeprazole (Omeprazole 20 Mg Capsule.Dr) 20 mg PO DAILY@0630 [facility] Last Admin: 03/18/23 05:36 Dose: 20 mg Ondansetron HCl (Ondansetron Odt 4 Mg Tab.Rapdis) 4 mg TRANSLINGU Q12H PRN PRN Reason: nausea and vomiting Last Admin: 03/14/23 20:52 Dose: 4 mg Ondansetron HCl (Ondansetron Hcl 4 Mg/2 Ml Vial) 4 mg IVPUSH Q4H PRN PRN Reason: Nausea and Vomiting Last Admin: 03/18/23 08:56 Dose: 4 mg Polyethylene Glycol (Polyethylene Glycol 3350 17 Gm Powd.Pack) 17 gm PO DAILY [facility] Last Admin: 03/18/23 09:21 Dose: Not Given Potassium Chloride (Potassium Chloride Er 10 Meq Tablet.Er) 10 meq PO BID [facility] Stop: 03/21/23 09:01 Last Admin: 03/18/23 08:59 Dose: Not Given Prednisone (Prednisone 5 Mg Tablet) 10 mg PO BID [facility] Last Admin: 03/18/23 09:23 Dose: Not Given Senna (Sennosides 8.6 Mg Tablet) 17.2 mg PO BEDTIME PRN PRN Reason: Constipation Sertraline HCl (Sertraline Hcl 50 Mg Tablet) 50 mg PO DAILY [facility] Last Admin: 03/18/23 09:00 Dose: Not Given Sodium Chloride (0.9 % Sodium Chloride Flush 3 Ml Syringe) 3 ml IVFLUSH QSHIFT [facility] Last Admin: 03/18/23 08:56 Dose: 3 ml Vancomycin HCl (Vancomycin Hcl 125 Mg Capsule) 125 mg PO QID [facility] Last Admin: 03/18/23 09:23 Dose: Not Given Home Medications Medication Instructions Recorded Confirmed Last Taken Type alendronate 70 mg tablet 70 mg PO QWEEK 02/02/23 03/14/23 Unknown History celecoxib 200 mg capsule 200 mg PO BID PRN pain 02/02/23 03/14/23 Unknown History ferrous sulfate 325 mg (65 mg 325 mg PO BID 02/02/23 03/14/23 Unknown History iron) tablet prednisone 5 mg tablet 5 mg PO BID 02/02/23 03/14/23 Unknown History sertraline 50 mg tablet 50 mg PO DAILY 02/02/23 03/14/23 Unknown History cefpodoxime 100 mg tablet 100 mg PO BID 03/14/23 03/14/23 Unknown History docusate sodium 100 mg capsule 100 mg PO BID 03/14/23 03/14/23 Unknown History gabapentin 300 mg capsule 300 mg PO BID@0900,1200 03/14/23 03/14/23 Unknown History hydromorphone 2 mg tablet 2 mg PO Q6H PRN Breakthrough Pain 03/14/23 03/14/23 Unknown History lorazepam 1 mg tablet 1 mg PO BID PRN anxiety 03/14/23 03/14/23 Unknown History magnesium oxide 400 mg PO DAILY 03/14/23 03/14/23 Unknown History morphine 15 mg tablet,extended 15 mg PO BID 03/14/23 03/14/23 Unknown History release pantoprazole 40 mg tablet,delayed 40 mg PO DAILY 03/14/23 03/14/23 Unknown History release polyethylene glycol 3350 17 gram 17 g PO DAILY 03/14/23 03/14/23 Unknown History oral powder packet sennosides 8.6 mg tablet (senna) 17.2 mg PO BEDTIME PRN Constipation 03/14/23 03/14/23 Unknown History Physical Exam Vital Signs: Last Vital Signs Temp 98.7 F 03/18/23 02:26 Pulse 77 03/18/23 07:57 Resp 12 03/18/23 07:57 BP 110/70 03/18/23 07:57 Pulse Ox 94 03/18/23 07:57 O2 Del Method Room Air 03/18/23 07:57 O2 Flow Rate 98 03/14/23 20:02 BMI result Body Mass Index 18.1 Const General: No confusion Orientation/consciousness: No confusion HEENT Head: No normal to inspection Mouth: moist mucous membranes Neck Neck: Yes supple and Yes no JVD Resp Auscultation: clear to auscultation bilaterally, no rales and rub present Cardio Jugular venous distension: no JVD Palpation: no palpable S3 and no palpable S4 Heart sounds: no rubs GI Palpation (GI): Soft to palpation and nontender Percussion: No Fluid wave present General: Yes no CVA tenderness Back/Spine/Pelvis Back: no CVA tenderness Skin General skin exam: no rashes or lesions noted Neuro General: No confusion Extrem General: Yes no pedal edema and No clubbing Results Lab Results 03/18/23 05:22 03/18/23 05:22 Lab results: Chemistry 03/16/23 03/17/23 03/18/23 08:40 06:55 05:22 Sodium 135 131 L 132 L Potassium 2.6 L D 2.6 L 3.0 L Carbon Dioxide 37 H 37 H 31 H BUN 12 8 L 9 Creatinine 0.53 0.52 0.56 Calcium 9.1 D 9.4 9.0 Hematology 03/16/23 03/17/23 03/18/23 05:32 06:55 05:22 WBC 6.3 8.8 7.5 Hgb 10.8 L D 12.4 11.9 L Plt Count 350 420 H 351 Assessment and Plan (1) Hypokalemia: Status: Acute Plan 68-year-old woman with metastatic cervical carcinoma. Status post chemotherapy. Persistent hypokalemia. GI losses versus renal losses. In At present she denies any diarrhea the even though she tested positive for C diff. CT scan revealed calcified adrenal gland on the right. Hyperaldosteronism should be ruled out especially with alkalosis. However blood pressure seems normal at this time. Recommendations Check urine for chloride. Check serum aldosterone Check plasma renin activity. Replace potassium orally. Further workup based on above results. Supportive care. Procedures Date of Service Date of Service: 03/18/23
[2023-03-18 10:32] VITALS: BMI 18.1
--- NOTE | 2023-03-18 10:43 | MHC.CM.PN ---
EMR reviewed. Per MD rounds patient awaiting hospice informational. [facility] will provide this today. CM will continue to follow.
--- NOTE | 2023-03-18 11:13 | MHC.CLN ---
DIET=REGULAR. PATIENT REPORTED THAT CONTINUES TO VOMIT AND INTAKE IS POOR. SKIN WITH DTI TO COCCYX. NUTRITION DX SEVERE MALNUTRITION IN THE CONTEXT OF CHRONIC ILLNESS. SIGNIFICANT WEIGHT LOSS -25% X ONE YEAR; REPORTED POOR PO X SEVERAL MONTHS; CHRONIC ILLNESS-METASTATIC CANCER; SEVERE DEPLETION OF MUSCLE MASS AND BODY FAT NOTED. CONTINUE TO FOLLOW FOR GI STATUS AND INTAKE. CONSIDER NUTRITIONAL SUPPLEMENT IF ABLE TO TOLERATE PO. SEE CLINICAL NUTRITION ASSESSMENT 03/18/23.
[2023-03-18 15:07] VITALS: BP 146/75; PULSE 88; RESP 18; TEMP 36.9; O2SAT 95
[2023-03-18 19:36] VITALS: BP 110/70; PULSE 109; RESP 18; TEMP 37.1; O2SAT 94
[2023-03-18] MEDS: HYDROmorphone HCl 1 MG/ML SYRINGE IVPUSH (20:23)
[2023-03-18] MEDS: Metoclopramide HCl 10 MG/2 ML VIAL 5 MG IVPUSH (20:24)
[2023-03-18] MEDS: Morphine Sulfate ER 15 MG TABLET.ER PO (20:29)
[2023-03-18] MEDS: LORazepam 1 MG TABLET PO (20:29)
[2023-03-19] MEDS: Metoclopramide HCl 10 MG/2 ML VIAL 5 MG IVPUSH ×4 (02:09→20:08)
[2023-03-19] MEDS: HYDROmorphone HCl 1 MG/ML SYRINGE IVPUSH ×5 (02:36→20:09)
[2023-03-19 02:56] VITALS: BP 105/60; PULSE 63; RESP 18; TEMP 36.6; O2SAT 93
[2023-03-19] MEDS: ondansetron HCL 4 MG/2 ML VIAL IVPUSH ×3 (06:08→18:35)
[2023-03-19 06:16] LABS: Anion Gap 16 (12-20); Blood Urea Nitrogen 12 mg/dL (9-16); Carbon Dioxide 29 mmol/L (22-29); Chloride 96 mmol/L (96-108); Creatinine Clr Calc Pharmacy 73.1; Estimated Glomerular Filt Rate > 60; Glucose Fasting 85 mg/dL (60-99); Potassium 2.9 mmol/L (3.3-5.1); Sodium 138 mmol/L (135-145)
[2023-03-19 06:31] LABS: Hematocrit 35.9 % (37.0-47.0); Hemoglobin 11.7 g/dl (12.0-16.0); Mean Corpuscular HGB Conc 32.6 g/dl (31.0-35.0); Mean Corpuscular Hemoglobin 27.5 pg (27.0-33.0); Mean Corpuscular Volume 84.3 fL (80.0-98.0); Mean Platelet Volume 9.2 fL (9.4-12.3); Platelet Count 350 X10*3/uL (160-400); Red Blood Count 4.26 X10*6/uL (4.20-5.50); White Blood Count 11.5 X10*3/uL (4.8-10.8)
[2023-03-19 07:03] VITALS: BP 112/70; PULSE 91; RESP 16; TEMP 36.6; O2SAT 94
--- NOTE | 2023-03-19 08:39 | P.PNIM_ITS ---
Subjective Subjective Date of Service: 03/19/23 Interval History: nausea Neurologic Neurologic: Denies confusion Psychiatric Psychiatric: Denies confusion Physical Exam 2 Vital Signs: Vital Signs: Last Vital Signs Temp 97.8 F 03/19/23 07:03 Pulse 91 03/19/23 07:03 Resp 16 03/19/23 07:03 BP 112/70 03/19/23 07:03 Pulse Ox 94 03/19/23 07:03 O2 Del Method Room Air 03/19/23 07:03 O2 Flow Rate 98 03/14/23 20:02 BMI result Body Mass Index 18.1 Const: General: No confusion Orientation/consciousness: No confusion HEENT: Head: No normal to inspection Mouth: moist mucous membranes Neck: Neck: Yes supple and Yes no JVD Resp: Auscultation: clear to auscultation bilaterally, no rales and rub present Cardio: Jugular venous distension: no JVD Palpation: no palpable S3 and no palpable S4 Heart sounds: no rubs GI: Palpation (GI): Soft to palpation and nontender Percussion: No Fluid wave present : General: Yes no CVA tenderness Back/Spine/Pelvis: Back: no CVA tenderness Skin: General skin exam: no rashes or lesions noted Neuro: General: No confusion Extrem: General: Yes no pedal edema and No clubbing Objective Data Active Medications Docusate Sodium (Docusate Sodium 100 Mg Capsule) 100 mg PO BID [facility] Last Admin: 03/18/23 20:36 Dose: Not Given Documented By: EFRAÍN Non-Admin Reason: Patient Refused Enoxaparin Sodium (Enoxaparin Sodium 40 Mg/0.4 Ml Syringe) 40 mg SUBCUT Q24H [facility] Last Admin: 03/18/23 09:21 Dose: Not Given Documented By: CHAZ Non-Admin Reason: Patient Refused Gabapentin (Gabapentin 300 Mg Capsule) 300 mg PO BID@0900,1200 [facility] Last Admin: 03/18/23 11:20 Dose: Not Given Documented By: CHAZ Non-Admin Reason: Patient Refused Gabapentin (Gabapentin 600 Mg Tablet) 600 mg PO BEDTIME [facility] Last Admin: 03/18/23 20:37 Dose: Not Given Documented By: EFRAÍN Non-Admin Reason: Patient Refused Hydromorphone HCl (Hydromorphone Hcl 2 Mg Tablet) 2 mg PO Q6H PRN PRN Reason: Breakthrough Pain Last Admin: 03/16/23 17:48 Dose: 2 mg Documented By: RACHID Hydromorphone HCl (Hydromorphone Hcl 1 Mg/Ml Syringe) 1 mg IVPUSH Q4H PRN; Protocol PRN Reason: Pain, Severe (Pain Scale 7-10) Last Admin: 03/19/23 06:50 Dose: 1 mg Documented By: EFRAÍN Sodium Chloride (Ns) 1,000 mls @ 80 mls/hr IVCONT .[id number] [facility] Last Admin: 03/18/23 23:07 Dose: Not Given Documented By: EFRAÍN Non-Admin Reason: IV Running Potassium Chloride (Potassium Chloride/H20) 10 meq in 100 mls @ 100 mls/hr IV Q1H [facility] Stop: 03/19/23 11:14 Lorazepam (Lorazepam 1 Mg Tablet) 1 mg PO TID [facility] Last Admin: 03/18/23 20:29 Dose: 1 mg Documented By: EFRAÍN Magnesium Oxide (Magnesium Oxide 400 Mg Tablet) 400 mg PO DAILY [facility] Stop: 03/19/23 09:01 Last Admin: 03/18/23 09:01 Dose: Not Given Documented By: CHAZ Non-Admin Reason: Patient Refused Metoclopramide HCl (Metoclopramide Hcl 10 Mg/2 Ml Vial) 5 mg IVPUSH Q6H [facility] Last Admin: 03/19/23 02:09 Dose: 5 mg Documented By: EFRAÍN Morphine Sulfate (Morphine Sulfate Er 15 Mg Tablet.Er) 15 mg PO BID [facility] Last Admin: 03/18/23 20:29 Dose: 15 mg Documented By: EFRAÍN Omeprazole (Omeprazole 20 Mg Capsule.Dr) 20 mg PO DAILY@0630 [facility] Last Admin: 03/19/23 05:51 Dose: Not Given Documented By: EFRAÍN Non-Admin Reason: Patient Refused Ondansetron HCl (Ondansetron Odt 4 Mg Tab.Rapdis) 4 mg TRANSLINGU Q12H PRN PRN Reason: nausea and vomiting Last Admin: 03/14/23 20:52 Dose: 4 mg Documented By: TORIN Ondansetron HCl (Ondansetron Hcl 4 Mg/2 Ml Vial) 4 mg IVPUSH Q4H PRN PRN Reason: Nausea and Vomiting Last Admin: 03/19/23 06:08 Dose: 4 mg Documented By: EFRAÍN Polyethylene Glycol (Polyethylene Glycol 3350 17 Gm Powd.Pack) 17 gm PO DAILY [facility] Last Admin: 03/18/23 09:21 Dose: Not Given Documented By: CHAZ Non-Admin Reason: Patient Refused Potassium Chloride (Potassium Chloride Er 10 Meq Tablet.Er) 10 meq PO BID [facility] Stop: 03/21/23 09:01 Last Admin: 03/18/23 20:37 Dose: Not Given Documented By: EFRAÍN Non-Admin Reason: Patient Refused Prednisone (Prednisone 5 Mg Tablet) 10 mg PO BID [facility] Last Admin: 03/18/23 20:37 Dose: Not Given Documented By: EFRAÍN Non-Admin Reason: Patient Refused Senna (Sennosides 8.6 Mg Tablet) 17.2 mg PO BEDTIME PRN PRN Reason: Constipation Sertraline HCl (Sertraline Hcl 50 Mg Tablet) 50 mg PO DAILY [facility] Last Admin: 03/18/23 09:00 Dose: Not Given Documented By: CHAZ Non-Admin Reason: Patient Refused Sodium Chloride (0.9 % Sodium Chloride Flush 3 Ml Syringe) 3 ml IVFLUSH QSHIFT [facility] Last Admin: 03/18/23 20:24 Dose: 3 ml Documented By: EFRAÍN Vancomycin HCl (Vancomycin Hcl 125 Mg Capsule) 125 mg PO QID [facility] Last Admin: 03/18/23 20:37 Dose: Not Given Documented By: EFRAÍN Non-Admin Reason: Patient Refused Labs 03/19/23 05:30 03/19/23 05:30 Labs: Laboratory Results - last 24 hr 03/19/23 05:30 MCV 84.3 MCH 27.5 MCHC 32.6 RDW 16.0 Plt Count 350 MPV 9.2 L Absolute Nucleated RBC 0.000 Nucleated RBC % (auto) 0.0 Anion Gap 16 Estim Creat Clear Calc 73.1 Estimated GFR > 60 Fasting Glucose 85 Calcium 9.0 Assessment and Plan (1) Nausea & vomiting: Status: Acute Plan 67F PMH metastatic squamous cell carcinoma of cervix (no longer on chemo, but most recent PET 10/2022 showed good response), chronic pain syndrome with opiate dependence, RA, presented with nausea and vomiting Intractable nausea and vomiting Supporting with IV fluids, antiemetics CT abdomen with ?SBO, though has had previous SBFT negative, more likely motility issue surgery appreciated - continue reglan still not tolerating po acute on chronic hypokalemia gi vs renal losses replace and monitor, nephro following check urine lytes (hasnt been able to give sample), RAAS Moderate protein calorie malnutrition Encourage p.o. intake Metastatic squamous cell carcinoma of cervix Should follow up outpatient with Oncology to determine status Most recently seemed to be responding to treatment, though may now have progression, patient requesting hospice informational Chronic pain syndrome with opiate dependence Continue opiate therapy Recent UTI Asymptomatic, urine culture negative C diff colitis P.o. vancomycin Contact precautions History of rheumatoid arthritis doubled prednisone for acute illness Mood disorder Continue sertraline, Ativan Osteoporosis Hold alendronate DVT prophylaxis with Lovenox DNR/DNI reason for continued hospitalization:hypokalemia, not tolerating po Quality Stroke Does the patient have a stroke diagnosis?: No VTE Prior VTE?: No VTE Risk Level:: Medical - moderate - high VTE Device Contraindication: Treatment Not Indicated VTE Drug Contraindication: N/A - Med Ordered
[2023-03-19] MEDS: Morphine Sulfate ER 15 MG TABLET.ER PO ×2 (08:44→20:35)
[2023-03-19] MEDS: LORazepam 1 MG TABLET PO ×3 (08:45→20:35)
[2023-03-19] MEDS: 0.9 % Sodium Chloride 1,000 ML 80 ML IVCONT (09:44)
[2023-03-19] MEDS: Potassium Chloride/H20 10 MEQ/100 ML PIGGYBACK 50 MEQ IV (09:45)
--- NOTE | 2023-03-19 11:39 | P.CDIM_ITS ---
PROVIDER RESPONSE TEXT: To clarify, the appropriate diagnosis supported by the clinical indicators: Pressure (decubitus) ulcer: dti QUERY TEXT: PHYSICIAN'S DOCUMENTATION REQUEST Date of Query: 03/19/2023 10:30 AM EST Patient Name: Evelyn Marin Admit Date: 03/15/2023 Dear Bnog Flores, A review of the medical record indicates additional documentation may be needed. Please review below and update the documentation accordingly. Clinical Indicators: Per Nursing Pressure Injury Assessment 03/15/23-03/18/23, Deep tissue injury coccyx, foam dressing Based on the above, could you please provide further information regarding the ulcer/wound: Diabetic ulcer Please specify the location and laterality of the ulcer/wound Venous stasis ulcer Please specify the location and laterality of the ulcer/wound Arterial (ischemic) ulcer Please specify the location and laterality of the ulcer/wound Pressure (decubitus) ulcer Please include the stage of the ulcer and specify the location and laterality of the ulcer/wound Traumatic wound Please specify the location and laterality of the ulcer/wound Non-healing surgical wound Please specify the location and laterality of the ulcer/wound Other (explain) Clinically unable to determine (explain) Thank you, Francisca Kapoor RN Use of terms such as suspected, likely, concern for, or probable (associated with a specific diagnosi s that is being evaluated, monitored, or treated as if it exists) are acceptable and can be coded in the inpatient se tting, when documented at the time of discharge. Please use your independent medical judgment in providing your response. THIS QUERY IS PART OF THE PERMANENT MEDICAL RECORD
--- NOTE | 2023-03-19 12:14 | PC.NURSE ---
late entry - 1mg ativan PO given at 10:54 on 03/15/23
[2023-03-19 12:54] LABS: Creatinine Urine 189.96 mg/dL; Potassium Urine Random 44.4 mmol/L; Sodium Urine Random < 20.0 mmol/L
[2023-03-19 14:50] VITALS: BP 116/66; PULSE 96; RESP 16; TEMP 36.6; O2SAT 94
[2023-03-19 15:39] VITALS: RESP 18
[2023-03-19 18:37] LABS: Chloride Urine Random < 20.0 mmol/L
--- NOTE | 2023-03-19 18:39 | PC.NURSE ---
Pt. has been refusing most of the meds including IV Potassium, and most of the oral meds. She agree to 1 bag of IV K today. She pick and chose what meds she wants, Dr. Flores aware.
[2023-03-19 19:09] VITALS: BP 131/72; PULSE 95; RESP 18; TEMP 36.6; O2SAT 99
[2023-03-20] MEDS: HYDROmorphone HCl 1 MG/ML SYRINGE IVPUSH ×6 (01:37→22:15)
[2023-03-20] MEDS: Metoclopramide HCl 10 MG/2 ML VIAL 5 MG IVPUSH ×4 (01:37→17:59)
[2023-03-20] MEDS: 0.9 % Sodium Chloride 1,000 ML 80 ML IVCONT (01:41)
[2023-03-20] MEDS: ondansetron HCL 4 MG/2 ML VIAL IVPUSH ×3 (04:20→22:14)
[2023-03-20 07:16] VITALS: BP 108/64; PULSE 81; RESP 16; TEMP 36.6; O2SAT 92
[2023-03-20 07:32] LABS: Hematocrit 36.1 % (37.0-47.0); Hemoglobin 11.7 g/dl (12.0-16.0); Mean Corpuscular HGB Conc 32.4 g/dl (31.0-35.0); Mean Corpuscular Hemoglobin 27.7 pg (27.0-33.0); Mean Corpuscular Volume 85.3 fL (80.0-98.0); Mean Platelet Volume 9.7 fL (9.4-12.3); Platelet Count 388 X10*3/uL (160-400); Red Blood Count 4.23 X10*6/uL (4.20-5.50); Red Cell Distribution Width 16.3 % (11.0-16.0); White Blood Count 10.1 X10*3/uL (4.8-10.8)
[2023-03-20 08:10] LABS: Anion Gap 20 (12-20); Blood Urea Nitrogen 15 mg/dL (9-16); Calcium 9.2 mg/dL (8.4-10.2); Carbon Dioxide 26 mmol/L (22-29); Chloride 96 mmol/L (96-108); Creatinine Clr Calc Pharmacy 68.4; Estimated Glomerular Filt Rate > 60; Glucose Fasting 109 mg/dL (60-99); Potassium 2.7 mmol/L (3.3-5.1); Sodium 139 mmol/L (135-145)
[2023-03-20] MEDS: Potassium Chloride Packet 20 MEQ PACKET 40 MEQ PO ×2 (09:34→10:30)
[2023-03-20] MEDS: LORazepam 1 MG TABLET PO ×3 (09:36→22:47)
[2023-03-20] MEDS: vancomycin HCL 125 MG CAPSULE PO ×4 (09:41→22:47)
--- NOTE | 2023-03-20 10:00 | MHC.CLN ---
Addendum entered by Jaqueline Irizarry, MICHELLE 03/20/23 12:23: MD SPOKE WITH PATIENT AND SHE WOULD LIKE TPN. PER MD START PPN TODAY. COMMUNICATED WITH PHARMACY. RECOMMEND PPN AT 30 ML PER HOUR, 72 G DEXTROSE, 31 G PROTEIN, 367 KCALS. REPLETE LYTES NEEDED. MONITOR FOR REFEEDING. Original Note: F/U TODAY IS DAY 6 OF USUALLY POOR PO INTAKE. NO ARTIFICIAL NUTRITION PER [facility] 09/05/22. DIET=REGULAR. ADDING ENSURE CLEAR BID TO PROMOTE INTAKE. PROVIDES 480 KCALS, 16 G PROTEIN. SKIN WITH DTI TO COCCYX. CONTINUE TO FOLLOW FOR GI STATUS AND INTAKE.
--- NOTE | 2023-03-20 11:10 | P.PNIM_ITS ---
Subjective Subjective Date of Service: 03/20/23 Interval History: Seen and evaluated this morning reporting nausea and vomiting Low K levels Not eating much No reported other overnight events Review of Systems Review of Systems: Yes all other systems are reviewed and are negative Physical Exam 2 Vital Signs: Vital Signs: Last Vital Signs Temp 97.8 F 03/20/23 07:16 Pulse 81 03/20/23 07:16 Resp 16 03/20/23 07:16 BP 108/64 03/20/23 07:16 Pulse Ox 92 03/20/23 07:16 O2 Del Method Room Air 03/20/23 07:16 O2 Flow Rate 98 03/14/23 20:02 BMI result Body Mass Index 18.1 Const: Other: Constitutional : Awake, interactive, underweight, not in distress Neck : Normal inspection, Supple Cardiovascular : RRR, no JVP, no lower extremity edema Respiratory : good bilateral air entry, no crackles, wheezes or rhonchi Gastrointestinal: soft, lax, Normal bowel sounds, mild generalized tenderness with no surgical signs Skin : Warm, Dry Neurological : Alert & oriented x3, No focal deficit Objective Data Active Medications Docusate Sodium (Docusate Sodium 100 Mg Capsule) 100 mg PO BID COUNT INCLUDES THE [facility] Last Admin: 03/20/23 09:39 Dose: Not Given Documented By: STANISLAV Non-Admin Reason: Patient Refused Enoxaparin Sodium (Enoxaparin Sodium 40 Mg/0.4 Ml Syringe) 40 mg SUBCUT Q24H COUNT INCLUDES THE [facility] Last Admin: 03/20/23 09:31 Dose: Not Given Documented By: STANISLAV Non-Admin Reason: Patient Refused Gabapentin (Gabapentin 300 Mg Capsule) 300 mg PO BID@0900,1200 COUNT INCLUDES THE [facility] Last Admin: 03/20/23 09:40 Dose: Not Given Documented By: STANISLAV Non-Admin Reason: Patient Refused Gabapentin (Gabapentin 600 Mg Tablet) 600 mg PO BEDTIME COUNT INCLUDES THE [facility] Last Admin: 03/19/23 20:17 Dose: Not Given Documented By: CR Non-Admin Reason: Patient Refused Hydromorphone HCl (Hydromorphone Hcl 1 Mg/Ml Syringe) 1 mg IVPUSH Q4H PRN; Protocol PRN Reason: Pain, Severe (Pain Scale 7-10) Last Admin: 03/20/23 09:29 Dose: 1 mg Documented By: STANISLAV Lorazepam (Lorazepam 1 Mg Tablet) 1 mg PO TID COUNT INCLUDES THE [facility] Last Admin: 03/20/23 09:36 Dose: 1 mg Documented By: STANISLAV Metoclopramide HCl (Metoclopramide Hcl 10 Mg/2 Ml Vial) 5 mg IVPUSH Q6H COUNT INCLUDES THE [facility] Last Admin: 03/20/23 09:33 Dose: 5 mg Documented By: STANISLAV Omeprazole (Omeprazole 20 Mg Capsule.Dr) 20 mg PO DAILY@0630 COUNT INCLUDES THE [facility] Last Admin: 03/20/23 05:20 Dose: Not Given Documented By: CR Non-Admin Reason: Patient Refused Ondansetron HCl (Ondansetron Odt 4 Mg Tab.Rapdis) 4 mg TRANSLINGU Q12H PRN PRN Reason: nausea and vomiting Last Admin: 03/14/23 20:52 Dose: 4 mg Documented By: TORIN Ondansetron HCl (Ondansetron Hcl 4 Mg/2 Ml Vial) 4 mg IVPUSH Q4H PRN PRN Reason: Nausea and Vomiting Last Admin: 03/20/23 04:20 Dose: 4 mg Documented By: CR Polyethylene Glycol (Polyethylene Glycol 3350 17 Gm Powd.Pack) 17 gm PO DAILY COUNT INCLUDES THE [facility] Last Admin: 03/20/23 09:40 Dose: Not Given Documented By: STANISLAV Non-Admin Reason: Patient Refused Potassium Chloride (Potassium Chloride Er 10 Meq Tablet.Er) 10 meq PO BID COUNT INCLUDES THE [facility] Stop: 03/21/23 09:01 Last Admin: 03/20/23 10:31 Dose: Not Given Documented By: STANISLAV Non-Admin Reason: Patient Refused Prednisone (Prednisone 5 Mg Tablet) 10 mg PO BID COUNT INCLUDES THE [facility] Last Admin: 03/20/23 09:40 Dose: Not Given Documented By: STANISLAV Non-Admin Reason: Patient Refused Senna (Sennosides 8.6 Mg Tablet) 17.2 mg PO BEDTIME PRN PRN Reason: Constipation Sertraline HCl (Sertraline Hcl 50 Mg Tablet) 50 mg PO DAILY COUNT INCLUDES THE [facility] Last Admin: 03/20/23 09:40 Dose: Not Given Documented By: STANISLAV Non-Admin Reason: Patient Refused Sodium Chloride (0.9 % Sodium Chloride Flush 3 Ml Syringe) 3 ml IVFLUSH QSHIFT COUNT INCLUDES THE [facility] Last Admin: 03/20/23 07:28 Dose: Not Given Documented By: STANISLAV Non-Admin Reason: IV Running Vancomycin HCl (Vancomycin Hcl 125 Mg Capsule) 125 mg PO QID LUIS M Last Admin: 03/20/23 09:41 Dose: 125 mg Documented By: STANISLAV Labs 03/20/23 06:05 03/20/23 06:05 Labs: Laboratory Results - last 24 hr 03/19/23 03/19/23 03/19/23 12:16 12:16 12:16 MCV MCH MCHC RDW Plt Count MPV Absolute Nucleated RBC Nucleated RBC % (auto) Anion Gap Estim Creat Clear Calc Estimated GFR Fasting Glucose Calcium Ur Random Sodium < 20.0 Cancelled Ur Random Potassium 44.4 Cancelled Ur Random Chloride < 20.0 Urine Creatinine 03/19/23 03/20/23 12:16 06:05 MCV 85.3 MCH 27.7 MCHC 32.4 RDW 16.3 H Plt Count 388 MPV 9.7 Absolute Nucleated RBC 0.000 Nucleated RBC % (auto) 0.0 Anion Gap 20 Estim Creat Clear Calc 68.4 Estimated GFR > 60 Fasting Glucose 109 H Calcium 9.2 Ur Random Sodium Ur Random Potassium Ur Random Chloride Cancelled Urine Creatinine 189.96 Assessment and Plan (1) Nausea & vomiting: Status: Acute (2) Metastatic cancer: Status: Acute (3) Intractable nausea and vomiting: Status: Acute Plan 67F PMH metastatic squamous cell carcinoma of cervix (no longer on chemo, but most recent PET 10/2022 showed good response), chronic pain syndrome with opiate dependence, RA, presented with nausea and vomiting Intractable nausea and vomiting Supporting with IV fluids, antiemetics CT abdomen with ?SBO, though has had previous SBFT negative, more likely motility issue surgery appreciated - No surgical interventions, no G\J tubes still not tolerating po To discuss goals of care. acute on chronic hypokalemia GI losses replace and monitor, nephro following check urine lytes, RAAS Moderate protein calorie malnutrition Encourage p.o. intake Metastatic squamous cell carcinoma of cervix Should follow up outpatient with Oncology to determine status Most recently seemed to be responding to treatment, though may now have progression, patient requesting hospice informational Chronic pain syndrome with opiate dependence Continue opiate therapy Recent UTI Asymptomatic, urine culture negative C diff colitis P.o. vancomycin Contact precautions History of rheumatoid arthritis doubled prednisone for acute illness Mood disorder Continue sertraline, Ativan Osteoporosis Hold alendronate DVT prophylaxis with Lovenox DNR/DNI reason for continued hospitalization:hypokalemia, not tolerating po Quality Stroke Does the patient have a stroke diagnosis?: No VTE Prior VTE?: No VTE Risk Level:: Medical - moderate - high VTE Device Contraindication: Treatment Not Indicated VTE Drug Contraindication: N/A - Med Ordered
[2023-03-20] MEDS: Potassium Chloride/H20 10 MEQ/100 ML PIGGYBACK 100 MEQ IV ×3 (12:03→14:22)
--- NOTE | 2023-03-20 12:06 | P.PNGS_ITS ---
Subjective Subjective Date of Service: 03/21/23 Interval history: she continues to have episodes of N/V with food denies severe abdl pain known metastatic cervical cancer Physical Exam 2 Vital Signs: Vital Signs: Last Vital Signs Temp 97.8 F 03/20/23 07:16 Pulse 81 03/20/23 07:16 Resp 16 03/20/23 07:16 BP 108/64 03/20/23 07:16 Pulse Ox 92 03/20/23 07:16 O2 Del Method Room Air 03/20/23 07:16 O2 Flow Rate 98 03/14/23 20:02 BMI result Body Mass Index 18.1 Const: General: comfortable Resp: Effort & Inspection: normal respiratory effort Cardio: Rate: regular rate GI: Other: mildly distended Palpation (GI): Soft to palpation, not firm and no guarding Objective Data Active Medications Docusate Sodium (Docusate Sodium 100 Mg Capsule) 100 mg PO BID [facility] Last Admin: 03/20/23 09:39 Dose: Not Given Documented By: STANISLAV Non-Admin Reason: Patient Refused Enoxaparin Sodium (Enoxaparin Sodium 40 Mg/0.4 Ml Syringe) 40 mg SUBCUT Q24H [facility] Last Admin: 03/20/23 09:31 Dose: Not Given Documented By: STANISLAV Non-Admin Reason: Patient Refused Gabapentin (Gabapentin 300 Mg Capsule) 300 mg PO BID@0900,1200 [facility] Last Admin: 03/20/23 12:03 Dose: Not Given Documented By: STANISLAV Non-Admin Reason: Patient Refused Gabapentin (Gabapentin 600 Mg Tablet) 600 mg PO BEDTIME [facility] Last Admin: 03/19/23 20:17 Dose: Not Given Documented By: CR Non-Admin Reason: Patient Refused Hydromorphone HCl (Hydromorphone Hcl 1 Mg/Ml Syringe) 1 mg IVPUSH Q4H PRN; Protocol PRN Reason: Pain, Severe (Pain Scale 7-10) Last Admin: 03/20/23 09:29 Dose: 1 mg Documented By: STANISLAV Potassium Chloride (Potassium Chloride/H20) 10 meq in 100 mls @ 100 mls/hr IV Q1H [facility] Stop: 03/20/23 15:29 Last Admin: 03/20/23 12:03 Dose: 100 mls/hr Documented By: STANISLAV Lorazepam (Lorazepam 1 Mg Tablet) 1 mg PO TID [facility] Last Admin: 03/20/23 09:36 Dose: 1 mg Documented By: STANISLAV Metoclopramide HCl (Metoclopramide Hcl 10 Mg/2 Ml Vial) 5 mg IVPUSH Q6H [facility] Last Admin: 03/20/23 09:33 Dose: 5 mg Documented By: STANISLAV Omeprazole (Omeprazole 20 Mg Capsule.Dr) 20 mg PO DAILY@0630 [facility] Last Admin: 03/20/23 05:20 Dose: Not Given Documented By: CR Non-Admin Reason: Patient Refused Ondansetron HCl (Ondansetron Odt 4 Mg Tab.Rapdis) 4 mg TRANSLINGU Q12H PRN PRN Reason: nausea and vomiting Last Admin: 03/14/23 20:52 Dose: 4 mg Documented By: TORIN Ondansetron HCl (Ondansetron Hcl 4 Mg/2 Ml Vial) 4 mg IVPUSH Q4H PRN PRN Reason: Nausea and Vomiting Last Admin: 03/20/23 04:20 Dose: 4 mg Documented By: CR Oxycodone HCl (Oxycodone Hcl Er 10 Mg Tab.Er.12h) 10 mg PO BID [facility] Polyethylene Glycol (Polyethylene Glycol 3350 17 Gm Powd.Pack) 17 gm PO DAILY [facility] Last Admin: 03/20/23 09:40 Dose: Not Given Documented By: STANISLAV Non-Admin Reason: Patient Refused Potassium Chloride (Potassium Chloride Er 10 Meq Tablet.Er) 10 meq PO BID [facility] Stop: 03/21/23 09:01 Last Admin: 03/20/23 10:31 Dose: Not Given Documented By: STANISLAV Non-Admin Reason: Patient Refused Prednisone (Prednisone 5 Mg Tablet) 10 mg PO BID [facility] Last Admin: 03/20/23 09:40 Dose: Not Given Documented By: STANISLAV Non-Admin Reason: Patient Refused Senna (Sennosides 8.6 Mg Tablet) 17.2 mg PO BEDTIME PRN PRN Reason: Constipation Sertraline HCl (Sertraline Hcl 50 Mg Tablet) 50 mg PO DAILY [facility] Last Admin: 03/20/23 09:40 Dose: Not Given Documented By: STANISLAV Non-Admin Reason: Patient Refused Sodium Chloride (0.9 % Sodium Chloride Flush 3 Ml Syringe) 3 ml IVFLUSH QSHIFT [facility] Last Admin: 03/20/23 07:28 Dose: Not Given Documented By: STANISLAV Non-Admin Reason: IV Running Vancomycin HCl (Vancomycin Hcl 125 Mg Capsule) 125 mg PO QID [facility] Last Admin: 03/20/23 09:41 Dose: 125 mg Documented By: STANISLAV Labs 03/20/23 06:05 03/21/23 05:29 Labs: Laboratory Results - last 24 hr 03/19/23 03/19/23 03/19/23 12:16 12:16 12:16 MCV MCH MCHC RDW Plt Count MPV Absolute Nucleated RBC Nucleated RBC % (auto) Anion Gap Estim Creat Clear Calc Estimated GFR Fasting Glucose Calcium Ur Random Sodium < 20.0 Cancelled Ur Random Potassium 44.4 Cancelled Ur Random Chloride < 20.0 Urine Creatinine 03/19/23 03/20/23 12:16 06:05 MCV 85.3 MCH 27.7 MCHC 32.4 RDW 16.3 H Plt Count 388 MPV 9.7 Absolute Nucleated RBC 0.000 Nucleated RBC % (auto) 0.0 Anion Gap 20 Estim Creat Clear Calc 68.4 Estimated GFR > 60 Fasting Glucose 109 H Calcium 9.2 Ur Random Sodium Ur Random Potassium Ur Random Chloride Cancelled Urine Creatinine 189.96 Procedures Date of Service Date of Service: 03/21/23 Progress Note: A&P Assessment and plan (1) Nausea & vomiting: Status: Acute Assessment and Plan: has known metastatic cervical cancer also has slow gastric emptying, used to respond to promotility agents latest CT scan now shows SB dilatation suggesting PSBO distally Small bowel series may define this further carcinomatosis a likelihood she is interested in TPN for PICC line Time Spent With Patient Time: Total time managing care of this patient today ____ minutes. Quality Stroke Does the patient have a stroke diagnosis?: No VTE Prior VTE?: No VTE Risk Level:: Medical - moderate - high VTE Device Contraindication: Treatment Not Indicated VTE Drug Contraindication: N/A - Med Ordered
[2023-03-20] MEDS: oxyCODONE HCl ER 10 MG TAB.ER.12H PO ×2 (12:07→22:47)
[2023-03-20 12:38] LABS: Albumin Level 2.6 g/dL (3.5-5.0); Magnesium 1.8 mg/dL (1.6-2.6); Phosphorus 2.4 mg/dL (2.7-4.5)
--- NOTE | 2023-03-20 13:09 | P.PNNP_ITS ---
Subjective Subjective Date of Service: 03/20/23 Interval history: HAs been having nausea and vomiting ; Continues to have low K levels ;Not eating much ;No reported other overnight events Physical Exam 2 Vital Signs: Vital Signs: Last Vital Signs Temp 97.8 F 03/20/23 07:16 Pulse 81 03/20/23 07:16 Resp 16 03/20/23 07:16 BP 108/64 03/20/23 07:16 Pulse Ox 92 03/20/23 07:16 O2 Del Method Room Air 03/20/23 07:16 O2 Flow Rate 98 03/14/23 20:02 BMI result Body Mass Index 18.1 Const: General: comfortable and no acute distress O rientation/consciousness: patient oriented x3 HEENT: Head: Yes normocephalic Mouth: Normal oral and palatal mucosa present Eyes: EOM: EOMs intact bilaterally Neck: Neck: Yes supple Resp: Auscultation: clear to auscultation bilaterally Cardio: Jugular venous distension: no JVD Rate: regular rate GI: Palpation (GI): Soft to palpation Auscultation: normal bowel sounds : General: Yes no CVA tenderness Back/Spine/Pelvis: Back: no CVA tenderness Skin: General skin exam: no rashes or lesions noted Neuro: General: patient oriented x3 and moves all extremities Extrem: General: Yes no pedal edema Objective Data Labs 03/20/23 06:05 03/20/23 06:05 Labs: Laboratory Results - last 24 hr 03/19/23 03/20/23 12:16 06:05 WBC 10.1 RBC 4.23 Hgb 11.7 L Hct 36.1 L MCV 85.3 MCH 27.7 MCHC 32.4 RDW 16.3 H Plt Count 388 MPV 9.7 Absolute Nucleated RBC 0.000 Nucleated RBC % (auto) 0.0 Sodium 139 Potassium 2.7 L* Chloride 96 Carbon Dioxide 26 Anion Gap 20 BUN 15 Creatinine 0.63 Estim Creat Clear Calc 68.4 Estimated GFR > 60 Fasting Glucose 109 H Calcium 9.2 Phosphorus 2.4 L Magnesium 1.8 Albumin 2.6 L Ur Random Chloride < 20.0 Procedures Date of Service Date of Service: 03/20/23 Assessment & Plan Assessment and plan (1) Hypokalemia: Status: Acute Plan 68-year-old woman with metastatic cervical carcinoma. Status post chemotherapy with persistent hypokalemia. Differential was GI losses versus renal losses. CT scan revealed calcified adrenal gland on the right. Hyperaldosteronism should be ruled out especially with alkalosis. However blood pressure seems normal at this time. urine for chloride/ Na reviewed; serum aldosterone /plasma renin activity. Replace potassium aggressively. Further workup based on above results.C/W rest of current supportive care for now Progress Note: Quality Stroke Does the patient have a stroke diagnosis?: No
[2023-03-20 15:35] LABS: Anion Gap 22 (12-20); Blood Urea Nitrogen 14 mg/dL (9-16); Calcium 9.6 mg/dL (8.4-10.2); Carbon Dioxide 26 mmol/L (22-29); Chloride 95 mmol/L (96-108); Creatinine Clr Calc Pharmacy 65.4; Estimated Glomerular Filt Rate > 60; Glucose Random 103 mg/dL (60-115); Potassium 3.4 mmol/L (3.3-5.1); Sodium 140 mmol/L (135-145)
[2023-03-20 19:25] VITALS: BP 118/68; PULSE 87; RESP 17; TEMP 36.3; O2SAT 94
[2023-03-21] MEDS: Metoclopramide HCl 10 MG/2 ML VIAL 5 MG IVPUSH ×4 (02:17→20:58)
[2023-03-21] MEDS: HYDROmorphone HCl 1 MG/ML SYRINGE IVPUSH ×5 (02:17→21:28)
[2023-03-21 06:50] LABS: Alanine Aminotransferase 24 U/L (0-31); Albumin Level 2.9 g/dL (3.5-5.0); Alkaline Phosphatase 180 U/L (39-117); Anion Gap 21 (12-20); Aspartate Amino Transferase 37 U/L (5-31); Bilirubin Total 0.3 mg/dL (0.0-1.0); Blood Urea Nitrogen 14 mg/dL (9-16); Calcium 9.7 mg/dL (8.4-10.2); Carbon Dioxide 26 mmol/L (22-29); Chloride 96 mmol/L (96-108); Creatinine Clr Calc Pharmacy 64.3; Estimated Glomerular Filt Rate > 60; Glucose Random 99 mg/dL (60-115); Magnesium 1.8 mg/dL (1.6-2.6); Phosphorus 2.1 mg/dL (2.7-4.5); Potassium 3.5 mmol/L (3.3-5.1); Sodium 139 mmol/L (135-145)
--- NOTE | 2023-03-21 07:38 | P.CNHO_ITS ---
Subjective - Subjective Chief complaint: Abdominal pain Patient: known to practice within the last 3 years Consult date: 03/22/23 Primary Care Provider: Dean Villalba MD Medical Summary: Diagnosis: poorly differentiated squamous cell carcinom, metastatic cervical cancer, 02/2022 History of stage IIIB squamous carcinoma of cervix, treated by Dr. Post at [facility]. She received cisplatin from 11/15/2016 to 12/20/2016, external beam radiation therapy from 11/15/2016 to 2016. Vaginal brachytherapy 12/31/2016 and 01/07/2017 at [facility]. Presented with right flank pain and found to have large adrenal mass suspicious for carcinoma. CT abdomen/ pelvis performed 02/21 with IV contrast revealed a 6.2 x 5.3 cm mass in the right adrenal gland extending into retrocaval space and retroperitoneum. IVC is inseparable from this mass likely invaded. Enlarged left inguinal lymph node, enlarged periportal and upper retroperitoneal lymph nodes measuring up to 0.9 cm. Trace amount of ascites in the right paracolic gutter. 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 She had extensive endocrine workup, she was ruled out for pheochromocytoma. She underwent right adrenal smith core biopsy on 03/08/2022 which revealed metastatic squamous cell carcinoma, moderate to poorly differentiated involving fibrous soft tissue. Findings likely represent a metastasis from patient's cervical primary. Blood work today shows normal LDH with mildly elevated CEA level. CT chest with contrast did not show any suspicious lesions. She underwent right adrenal mass core biopsy on 03/08/2022 which revealed metastatic squamous cell carcinoma, moderate to poorly differentiated involving fibrous soft tissue. Findings likely represent a metastasis from patient's cervical primary. CT chest with contrast did not show any suspicious lesions. She was seen at [facility], she has not been recommended any surgery or upfront radiation therapy for pain control. She was recommended carboplatin/Taxol with Keytruda for metastatic cervical cancer. PET-CT performed 04/10/2022 however showed focus of abnormal FDG activity associated with soft tissue density in the mid esophagus with SUV 7.6 measuring 6.2 cm which was suspicious for primary tumor. She had other areas of FDG activity in the supraclavicular lymph node, right adrenal mass with SUV 12.1 right para-aortic lymph node SUV 9 and several additional smaller lymph nodes with FDG activity. No FDG activity in the uterus or pelvic organs. Patient underwent EGD on 05/15/2022 which did not show any esophageal tumor. Random biopsies obtained from mid esophagus was negative for malignancy. HPI - Consult Narrative Reason for consult: Metastatic cervical cancer Narrative: Evelyn Marin is a 68 year old female with history of metastatic cervical cancer diagnosed in 2021, chronic opiate dependence and rheumatoid arthritis presenting with recurrent nausea and vomiting. She had similar complaints in January 2023 when she was admitted to [facility], subsequently she was admitted at [facility] for similar complaints. Multiple noncontrast CT abdomen/pelvis has shown bowel obstruction but no visible tumor. Was evaluated by surgery. There was no indication for surgical intervention. She was treated for UTI and C diff colitis. She has had PICC line inserted and is on TPN because of persistent symptoms of bowel obstruction and inability to eat. During the interview, she continues to complain of pain and requesting narcotics. She is undecided about hospice care. Review of Systems - Constitutional Reports as per HPI - Neurologic Denies confusion, Denies headache(s), Denies focal weakness PMFSH Medical History: Medical History (Last Reviewed 03/15/23 @ 17:03 by Bong Flores MD) Anxiety with depression Back pain Cervical cancer Chronic pain syndrome Complex regional pain syndrome i of lower limb, bilateral Delayed gastric emptying Opiate abuse, episodic Osteoarthritis of both knees Osteoporosis Primary osteoarthritis of knees, bilateral Seropositive rheumatoid arthritis Squamous cell carcinoma of cervix Family History: Family History (Last Reviewed 03/15/23 @ 17:03 by Bong Flores MD) Father Acute CVA (cerebrovascular accident) Mother Hypertension Hypercholesterolemia Brother Liver transplant status Family history of thyroid problem Surgical History: Surgical History (Last Reviewed 03/15/23 @ 17:03 by Bong Flores MD) History of appendectomy History of cholecystectomy History of D&C History of tonsillectomy Social History: Social History (Last Reviewed 03/15/23 @ 17:03 by Bong Flores MD) Living Situation History: Household Members: Family Housing: House 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 Medications and Allergies Current Medications: Current Medications Docusate Sodium (Docusate Sodium 100 Mg Capsule) 100 mg PO BID COUNT INCLUDES THE [facility] Last Admin: 03/20/23 22:20 Dose: Not Given Enoxaparin Sodium (Enoxaparin Sodium 40 Mg/0.4 Ml Syringe) 40 mg SUBCUT Q24H COUNT INCLUDES THE [facility] Last Admin: 03/20/23 09:31 Dose: Not Given Gabapentin (Gabapentin 300 Mg Capsule) 300 mg PO BID@0900,1200 COUNT INCLUDES THE [facility] Last Admin: 03/20/23 12:03 Dose: Not Given Gabapentin (Gabapentin 600 Mg Tablet) 600 mg PO BEDTIME COUNT INCLUDES THE [facility] Last Admin: 03/20/23 22:20 Dose: Not Given Hydromorphone HCl (Hydromorphone Hcl 1 Mg/Ml Syringe) 1 mg IVPUSH Q4H PRN; Protocol PRN Reason: Pain, Severe (Pain Scale 7-10) Last Admin: 03/21/23 06:10 Dose: 1 mg Nutrition (Parenteral) (Parenteral Nutrition) 720 mls @ 30 mls/hr IV .Q24H COUNT INCLUDES THE [facility]; Protocol Stop: 03/21/23 20:59 Last Admin: 03/20/23 22:20 Dose: Not Given Lorazepam (Lorazepam 1 Mg Tablet) 1 mg PO TID COUNT INCLUDES THE [facility] Last Admin: 03/20/23 22:47 Dose: 1 mg Metoclopramide HCl (Metoclopramide Hcl 10 Mg/2 Ml Vial) 5 mg IVPUSH Q6H COUNT INCLUDES THE [facility] Last Admin: 03/21/23 06:10 Dose: 5 mg Omeprazole (Omeprazole 20 Mg Capsule.Dr) 20 mg PO DAILY@0630 COUNT INCLUDES THE [facility] Last Admin: 03/21/23 06:32 Dose: Not Given Ondansetron HCl (Ondansetron Odt 4 Mg Tab.Rapdis) 4 mg TRANSLINGU Q12H PRN PRN Reason: nausea and vomiting Last Admin: 03/14/23 20:52 Dose: 4 mg Ondansetron HCl (Ondansetron Hcl 4 Mg/2 Ml Vial) 4 mg IVPUSH Q4H PRN PRN Reason: Nausea and Vomiting Last Admin: 03/20/23 22:14 Dose: 4 mg Oxycodone HCl (Oxycodone Hcl Er 10 Mg Tab.Er.12h) 10 mg PO BID COUNT INCLUDES THE [facility] Last Admin: 03/20/23 22:47 Dose: 10 mg Pharmacy Consult (Consult Rx Parenteral Nutrition Ordering) 1 each MISCELLANE DAILY PRN PRN Reason: Consult order Polyethylene Glycol (Polyethylene Glycol 3350 17 Gm Powd.Pack) 17 gm PO DAILY COUNT INCLUDES THE [facility] Last Admin: 03/20/23 09:40 Dose: Not Given Prednisone (Prednisone 5 Mg Tablet) 10 mg PO BID COUNT INCLUDES THE [facility] Last Admin: 03/20/23 22:19 Dose: Not Given Senna (Sennosides 8.6 Mg Tablet) 17.2 mg PO BEDTIME PRN PRN Reason: Constipation Sertraline HCl (Sertraline Hcl 50 Mg Tablet) 50 mg PO DAILY COUNT INCLUDES THE [facility] Last Admin: 03/20/23 09:40 Dose: Not Given Sodium Chloride (0.9 % Sodium Chloride Flush 3 Ml Syringe) 3 ml IVFLUSH QSHIFT COUNT INCLUDES THE [facility] Last Admin: 03/20/23 22:20 Dose: 3 ml Vancomycin HCl (Vancomycin Hcl 125 Mg Capsule) 125 mg PO QID COUNT INCLUDES THE [facility] Last Admin: 03/20/23 22:47 Dose: 125 mg Home Medications Medication Instructions Recorded Confirmed Type alendronate 70 mg tablet 70 mg PO QWEEK 02/02/23 03/14/23 History celecoxib 200 mg capsule 200 mg PO BID PRN pain 02/02/23 03/14/23 History ferrous sulfate 325 mg (65 mg 325 mg PO BID 02/02/23 03/14/23 History iron) tablet prednisone 5 mg tablet 5 mg PO BID 02/02/23 03/14/23 History sertraline 50 mg tablet 50 mg PO DAILY 02/02/23 03/14/23 History cefpodoxime 100 mg tablet 100 mg PO BID 03/14/23 03/14/23 History docusate sodium 100 mg capsule 100 mg PO BID 03/14/23 03/14/23 History gabapentin 300 mg capsule 300 mg PO BID@0900,1200 03/14/23 03/14/23 History hydromorphone 2 mg tablet 2 mg PO Q6H PRN Breakthrough Pain 03/14/23 03/14/23 History lorazepam 1 mg tablet 1 mg PO BID PRN anxiety 03/14/23 03/14/23 History magnesium oxide 400 mg PO DAILY 03/14/23 03/14/23 History morphine 15 mg tablet,extended 15 mg PO BID 03/14/23 03/14/23 History release pantoprazole 40 mg tablet,delayed 40 mg PO DAILY 03/14/23 03/14/23 History release polyethylene glycol 3350 17 gram 17 g PO DAILY 03/14/23 03/14/23 History oral powder packet sennosides 8.6 mg tablet (senna) 17.2 mg PO BEDTIME PRN Constipation 03/14/23 03/14/23 History Allergies Allergy/AdvReac Type Severity Reaction Status Date / Time buprenorphine [Belbuca] Allergy Intermediate Anaphylaxis Verified 02/20/23 09:29 Physical Exam Vital signs: Vital Signs Temp 97.3 F 03/20/23 19:25 Pulse 87 03/20/23 19:25 Resp 17 03/20/23 19:25 BP 118/68 03/20/23 19:25 Pulse Ox 94 03/20/23 19:25 O2 Del Method Room Air 03/20/23 19:25 O2 Flow Rate 98 03/14/23 20:02 Intake & Output 03/20/23 03/21/23 03/21/23 18:59 06:59 18:59 Intake Total 2161.333 / 2481.333 320 / 2481.333 Output Total 800 / 800 Balance 1361.333 / 1681.333 320 / 1681.333 Intake: Intake, Oral Amount 1200 / 1520 320 / 1520 Intake, IV Amount 961.333 / 961.333 Potassium Chloride/H20 10 meq 300 / 300 In 100 ml @ 100 mls/hr IV Q1H LUIS M Rx#:[id number] 0.9 % Sodium Chloride 1,000 ml 661.333 / 661.333 @ 80 mls/hr IVCONT .[id number] LUIS M Rx#:[id number] Output: Output, Emesis Amount 800 / 800 Other: NPO No Breakfast % Eaten 25% Lunch % Eaten 50% Number of Incontinent Voids 1 Number of Unmeasured Voids 2 Urine Bedpan Urine Color Keira Emesis Color Light Green Weight 49.4 kg - Constitutional Present: chronically ill appearing - Routine HEENT Exam Eye: Present: normal appearance, conjunctivae pale - Routine Neck Exam Absent: lymphadenopathy - Routine Respiratory Exam Absent: accessory muscle use - Routine Cardiovascular Exam Cardiovascular: Present: S1, S2 - Routine Abdominal Exam Present: diminished bowel sounds, distended, tenderness Hem/Onc Consult Result - Labs CBC & Chem 7: 03/20/23 06:05 03/22/23 05:31 Labs: BMP 03/20/23 03/20/23 03/21/23 06:05 15:06 05:29 Sodium 139 140 139 Potassium 2.7 L* 3.4 D 3.5 Chloride 96 95 L 96 Carbon Dioxide 26 26 26 BUN 15 14 14 Creatinine 0.63 0.66 0.67 Calcium 9.2 9.6 9.7 Liver Function 03/20/23 03/21/23 Range/Units 06:05 05:29 Total Bilirubin 0.3 (0.0-1.0) mg/dL AST 37 H (5-31) U/L ALT 24 (0-31) U/L Alkaline Phosphatase 180 H (39-117) U/L Albumin 2.6 L 2.9 L (3.5-5.0) g/dL Assessment and Plan Patient Active problem list reviewed?: Yes (1) Metastasis from cervical cancer Status: Chronic Assessment and plan: 1. This is a 68-year-old woman with metastatic cervical cancer, poorly differentiated squamous cell carcinoma diagnosed 03/08/2022. CT abdomen/ pelvis performed 02/21 revealed a 6.2 x 5.3 cm mass in the right adrenal gland extending into retrocaval space and retroperitoneum. IVC is inseparable from this mass likely invaded. Enlarged left inguinal lymph node, enlarged periportal and upper retroperitoneal lymph nodes measuring up to 0.9 cm. Trace amount of ascites in the right paracolic gutter. Negative RET and NTRK fusion mutations. PDL1 expression, CPS score 100%. She started palliative chemotherapy with carboplatin, Taxol and Keytruda on 04/13/22. She presented with vaginal bleeding in May 2022, she received 2 units blood transfusion and transferred to [facility] for rn gynecology evaluation. Dr. Newton examined the patient and did not feel there was any significant bleeding, she was recommended to resume treatment for metastatic cervical cancer. However patient declined all treatments and was not seen in Oncology Clinic since September 2022. Since January 2023 patient has had multiple hospital admissions for bowel obstruction. Most recent scan performed 03/15/2022, CT abdomen/pelvis without contrast shows gastric distention with air and fluid in the stomach. Moderate distention of small-bowel loops diffusely filled with air-fluid levels. Similar to findings in January 2023. Transition point appears to be in the low pelvis. 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 She also is dependent on narcotics chronically and may have gastroparesis, ileus related to excessive narcotics. Today, she remains ambivalent about her goals of care. She had requested hospice in the past but later declined it. I have explained to her that chemo/immunotherapy can not be administered at this time because of her extremely poor performance status. I recommend ongoing supportive care and discussion with patient's children and her about goals of care going forward. I will be happy to help in the discussion if necessary. Thank you for this referral. - Time Spent With Patient Time Spent with Patient (in minutes): 20
[2023-03-21] MEDS: Lactated Ringers 1,000 ML 80 ML IVCONT (07:58)
[2023-03-21 08:00] VITALS: BP 130/83; PULSE 91; RESP 18; TEMP 36.3; O2SAT 93
[2023-03-21] MEDS: Omeprazole 20 MG CAPSULE.DR PO (08:06)
[2023-03-21] MEDS: oxyCODONE HCl ER 10 MG TAB.ER.12H PO ×2 (08:06→21:02)
[2023-03-21] MEDS: LORazepam 1 MG TABLET PO ×3 (08:06→21:02)
--- NOTE | 2023-03-21 08:12 | PM.PNGS ---
Subjective Subjective Date of Service: 03/21/23 Interval history: still nauseous not tolerating oral intake still says things are unchanged Physical Exam Vital Signs: Vital Signs: Last Vital Signs Temp 97.3 F 03/20/23 19:25 Pulse 87 03/20/23 19:25 Resp 17 03/20/23 19:25 BP 118/68 03/20/23 19:25 Pulse Ox 94 03/20/23 19:25 O2 Del Method Room Air 03/20/23 19:25 O2 Flow Rate 98 03/14/23 20:02 BMI result Body Mass Index 18.1 Const: Other: very frail looking Nutritional Appearance: cachectic Resp: Effort & Inspection: normal respiratory effort Cardio: Rate: regular rate GI: Palpation (GI): Soft to palpation, not firm and no guarding Objective Data Active Medications Docusate Sodium (Docusate Sodium 100 Mg Capsule) 100 mg PO BID [facility] Last Admin: 03/20/23 22:20 Dose: Not Given Documented By: CR Non-Admin Reason: Patient Refused Enoxaparin Sodium (Enoxaparin Sodium 40 Mg/0.4 Ml Syringe) 40 mg SUBCUT Q24H [facility] Last Admin: 03/20/23 09:31 Dose: Not Given Documented By: STANISLAV Non-Admin Reason: Patient Refused Gabapentin (Gabapentin 300 Mg Capsule) 300 mg PO BID@0900,1200 [facility] Last Admin: 03/20/23 12:03 Dose: Not Given Documented By: STANISLAV Non-Admin Reason: Patient Refused Gabapentin (Gabapentin 600 Mg Tablet) 600 mg PO BEDTIME [facility] Last Admin: 03/20/23 22:20 Dose: Not Given Documented By: CR Non-Admin Reason: Patient Refused Hydromorphone HCl (Hydromorphone Hcl 1 Mg/Ml Syringe) 1 mg IVPUSH Q4H PRN; Protocol PRN Reason: Pain, Severe (Pain Scale 7-10) Last Admin: 03/21/23 06:10 Dose: 1 mg Documented By: CR Nutrition (Parenteral) (Parenteral Nutrition) 720 mls @ 30 mls/hr IV .Q24H [facility]; Protocol Stop: 03/21/23 20:59 Last Admin: 03/20/23 22:20 Dose: Not Given Documented By: CR Non-Admin Reason: no picc Lactated Ringer's (Lr) 1,000 mls @ 80 mls/hr IVCONT .[id number] [facility] Last Admin: 03/21/23 07:58 Dose: 80 mls/hr Documented By: STANISLAV Lorazepam (Lorazepam 1 Mg Tablet) 1 mg PO TID [facility] Last Admin: 03/20/23 22:47 Dose: 1 mg Documented By: CR Metoclopramide HCl (Metoclopramide Hcl 10 Mg/2 Ml Vial) 5 mg IVPUSH Q6H [facility] Last Admin: 03/21/23 06:10 Dose: 5 mg Documented By: CR Omeprazole (Omeprazole 20 Mg Capsule.Dr) 20 mg PO DAILY@0630 [facility] Last Admin: 03/21/23 06:32 Dose: Not Given Documented By: CR Non-Admin Reason: Patient Refused Ondansetron HCl (Ondansetron Odt 4 Mg Tab.Rapdis) 4 mg TRANSLINGU Q12H PRN PRN Reason: nausea and vomiting Last Admin: 03/14/23 20:52 Dose: 4 mg Documented By: TORIN Ondansetron HCl (Ondansetron Hcl 4 Mg/2 Ml Vial) 4 mg IVPUSH Q4H PRN PRN Reason: Nausea and Vomiting Last Admin: 03/20/23 22:14 Dose: 4 mg Documented By: CR Oxycodone HCl (Oxycodone Hcl Er 10 Mg Tab.Er.12h) 10 mg PO BID [facility] Last Admin: 03/20/23 22:47 Dose: 10 mg Documented By: CR Pharmacy Consult (Consult Rx Parenteral Nutrition Ordering) 1 each MISCELLANE DAILY PRN PRN Reason: Consult order Polyethylene Glycol (Polyethylene Glycol 3350 17 Gm Powd.Pack) 17 gm PO DAILY [facility] Last Admin: 03/20/23 09:40 Dose: Not Given Documented By: STANISLAV Non-Admin Reason: Patient Refused Prednisone (Prednisone 5 Mg Tablet) 10 mg PO BID [facility] Last Admin: 03/20/23 22:19 Dose: Not Given Documented By: CR Non-Admin Reason: Patient Refused Senna (Sennosides 8.6 Mg Tablet) 17.2 mg PO BEDTIME PRN PRN Reason: Constipation Sertraline HCl (Sertraline Hcl 50 Mg Tablet) 50 mg PO DAILY [facility] Last Admin: 03/20/23 09:40 Dose: Not Given Documented By: STANISLAV Non-Admin Reason: Patient Refused Sodium Chloride (0.9 % Sodium Chloride Flush 3 Ml Syringe) 3 ml IVFLUSH QSHIFT [facility] Last Admin: 03/21/23 07:59 Dose: Not Given Documented By: STANISLAV Non-Admin Reason: IV Running Vancomycin HCl (Vancomycin Hcl 125 Mg Capsule) 125 mg PO QID [facility] Last Admin: 03/20/23 22:47 Dose: 125 mg Documented By: CR Labs 03/20/23 06:05 03/21/23 05:29 Labs: Laboratory Results - last 24 hr 03/20/23 03/20/23 03/21/23 06:05 15:06 05:29 Anion Gap 22 H 21 H Estim Creat Clear Calc 65.4 64.3 Estimated GFR > 60 > 60 Random Glucose 103 99 Calcium 9.6 9.7 Phosphorus 2.4 L 2.1 L Magnesium 1.8 1.8 Total Bilirubin 0.3 AST 37 H ALT 24 Alkaline Phosphatase 180 H Total Protein 6.0 L Albumin 2.6 L 2.9 L Procedures Date of Service Date of Service: 03/21/23 Progress Note: A&P Assessment and plan (1) Nausea & vomiting: Status: Acute Assessment and Plan: persistent N/V has known gastroparesis CT now suggests distal obstruction hx reviewed - she is seeing oncology in [facility]: squamous cell ca of the cervix, with mets to the adrenal, retrocaval, and retroperitoneal nodes also with likely bladder involvement has advanced disease she is interested in TPN PICC line being arranged no surgical intervention Time Spent With Patient Time: Total time managing care of this patient today ____ minutes. Quality Stroke Does the patient have a stroke diagnosis?: No VTE Prior VTE?: No VTE Risk Level:: Medical - moderate - high VTE Device Contraindication: Treatment Not Indicated VTE Drug Contraindication: N/A - Med Ordered
[2023-03-21] MEDS: LORazepam 2 MG/ML VIAL 0.5 MG IVPUSH ×2 (08:59→15:03)
--- NOTE | 2023-03-21 09:07 | P.PNIM_ITS ---
Subjective Subjective Date of Service: 03/21/23 Interval History: Seen and evaluated this morning Still reporting nausea and vomiting K levels improved Not eating much and refusing some of her medications No reported other overnight events Review of Systems Review of Systems: Yes all other systems are reviewed and are negative Physical Exam 2 Vital Signs: Vital Signs: Last Vital Signs Temp 97.4 F 03/21/23 08:00 Pulse 91 03/21/23 08:00 Resp 18 03/21/23 08:00 BP 130/83 03/21/23 08:00 Pulse Ox 93 03/21/23 08:00 O2 Del Method Room Air 03/21/23 08:00 O2 Flow Rate 98 03/14/23 20:02 BMI result Body Mass Index 18.1 Const: Other: Constitutional : Awake, interactive, underweight, not in distress Neck : Normal inspection, Supple Cardiovascular : RRR, no JVP, no lower extremity edema Respiratory : good bilateral air entry, no crackles, wheezes or rhonchi Gastrointestinal: soft, lax, Normal bowel sounds, no significant tenderness with no surgical signs Skin : Warm, Dry Neurological : Alert & oriented x3, No focal deficit Objective Data Active Medications Docusate Sodium (Docusate Sodium 100 Mg Capsule) 100 mg PO BID [facility] Last Admin: 03/21/23 09:02 Dose: Not Given Documented By: STANISLAV Non-Admin Reason: Patient Refused Enoxaparin Sodium (Enoxaparin Sodium 40 Mg/0.4 Ml Syringe) 40 mg SUBCUT Q24H [facility] Last Admin: 03/21/23 09:02 Dose: Not Given Documented By: STANISLAV Non-Admin Reason: Patient Refused Gabapentin (Gabapentin 300 Mg Capsule) 300 mg PO BID@0900,1200 [facility] Last Admin: 03/21/23 09:02 Dose: Not Given Documented By: STANISLAV Non-Admin Reason: Patient Refused Gabapentin (Gabapentin 600 Mg Tablet) 600 mg PO BEDTIME [facility] Last Admin: 03/20/23 22:20 Dose: Not Given Documented By: CR Non-Admin Reason: Patient Refused Hydromorphone HCl (Hydromorphone Hcl 1 Mg/Ml Syringe) 1 mg IVPUSH Q4H PRN; Protocol PRN Reason: Pain, Severe (Pain Scale 7-10) Last Admin: 03/21/23 06:10 Dose: 1 mg Documented By: CR Nutrition (Parenteral) (Parenteral Nutrition) 720 mls @ 30 mls/hr IV .Q24H [facility]; Protocol Stop: 03/21/23 20:59 Last Admin: 03/20/23 22:20 Dose: Not Given Documented By: CR Non-Admin Reason: no picc Lactated Ringer's (Lr) 1,000 mls @ 80 mls/hr IVCONT .[id number] [facility] Last Admin: 03/21/23 07:58 Dose: 80 mls/hr Documented By: STANISLAV Lorazepam (Lorazepam 1 Mg Tablet) 1 mg PO TID [facility] Last Admin: 03/21/23 08:06 Dose: 1 mg Documented By: STANISLAV Metoclopramide HCl (Metoclopramide Hcl 10 Mg/2 Ml Vial) 5 mg IVPUSH Q6H [facility] Last Admin: 03/21/23 06:10 Dose: 5 mg Documented By: CR Omeprazole (Omeprazole 20 Mg Capsule.Dr) 20 mg PO DAILY@0630 [facility] Last Admin: 03/21/23 08:06 Dose: 20 mg Documented By: STANISLAV Ondansetron HCl (Ondansetron Odt 4 Mg Tab.Rapdis) 4 mg TRANSLINGU Q12H PRN PRN Reason: nausea and vomiting Last Admin: 03/14/23 20:52 Dose: 4 mg Documented By: TORIN Ondansetron HCl (Ondansetron Hcl 4 Mg/2 Ml Vial) 4 mg IVPUSH Q4H PRN PRN Reason: Nausea and Vomiting Last Admin: 03/20/23 22:14 Dose: 4 mg Documented By: CR Oxycodone HCl (Oxycodone Hcl Er 10 Mg Tab.Er.12h) 10 mg PO BID [facility] Last Admin: 03/21/23 08:06 Dose: 10 mg Documented By: STANISLAV Pharmacy Consult (Consult Rx Parenteral Nutrition Ordering) 1 each MISCELLANE DAILY PRN PRN Reason: Consult order Polyethylene Glycol (Polyethylene Glycol 3350 17 Gm Powd.Pack) 17 gm PO DAILY [facility] Last Admin: 03/21/23 09:02 Dose: Not Given Documented By: STANISLAV Non-Admin Reason: Patient Refused Prednisone (Prednisone 5 Mg Tablet) 10 mg PO BID [facility] Last Admin: 03/21/23 09:03 Dose: Not Given Documented By: STANISLAV Non-Admin Reason: Patient Refused Senna (Sennosides 8.6 Mg Tablet) 17.2 mg PO BEDTIME PRN PRN Reason: Constipation Sertraline HCl (Sertraline Hcl 50 Mg Tablet) 50 mg PO DAILY [facility] Last Admin: 03/21/23 09:03 Dose: Not Given Documented By: STANISLAV Non-Admin Reason: Patient Refused Sodium Chloride (0.9 % Sodium Chloride Flush 3 Ml Syringe) 3 ml IVFLUSH QSHIFT [facility] Last Admin: 03/21/23 07:59 Dose: Not Given Documented By: STANISLAV Non-Admin Reason: IV Running Vancomycin HCl (Vancomycin Hcl 125 Mg Capsule) 125 mg PO QID [facility] Last Admin: 03/21/23 09:03 Dose: Not Given Documented By: STANISLAV Non-Admin Reason: Patient Refused Labs 03/20/23 06:05 03/21/23 05:29 Labs: Laboratory Results - last 24 hr 03/20/23 03/20/23 03/21/23 06:05 15:06 05:29 Anion Gap 22 H 21 H Estim Creat Clear Calc 65.4 64.3 Estimated GFR > 60 > 60 Random Glucose 103 99 Calcium 9.6 9.7 Phosphorus 2.4 L 2.1 L Magnesium 1.8 1.8 Total Bilirubin 0.3 AST 37 H ALT 24 Alkaline Phosphatase 180 H Total Protein 6.0 L Albumin 2.6 L 2.9 L Assessment and Plan (1) Metastatic cancer: Status: Acute (2) Chronic, continuous use of opioids: Status: Acute (3) Hypokalemia: Status: Acute (4) Delayed gastric emptying: Status: Acute (5) Intractable nausea and vomiting: Status: Acute Plan 67F PMH metastatic squamous cell carcinoma of cervix (no longer on chemo, but most recent PET 10/2022 showed good response), chronic pain syndrome with opiate dependence, RA, presented with nausea and vomiting Intractable nausea and vomiting Supporting with IV fluids, antiemetics CT abdomen with SBO, had previous SBFT negative, Has Hx of Gastroparesis as well surgery appreciated - No surgical interventions, no G\J tubes, concern for Carcinomatosis still not tolerating po To discuss goals of care with hospice team acute on chronic hypokalemia GI losses replace and monitor, nephro following check urine lytes, RAAS Moderate protein calorie malnutrition Encourage p.o. intake Place PICC line and start TPN Metastatic squamous cell carcinoma of cervix squamous cell ca of the cervix, with mets to the adrenal, retrocaval, and retroperitoneal nodes also with likely bladder involvement Most recently seemed to be responding to treatment before stopping it Oncology consult patient requesting hospice informational Chronic pain syndrome with opiate dependence Continue opiate therapy Recent UTI Asymptomatic, urine culture negative C diff colitis No more diarrhea P.o. vancomycin, patient refuses on occasions Contact precautions History of rheumatoid arthritis doubled prednisone for acute illness Mood disorder Continue sertraline, Ativan Osteoporosis Hold alendronate DVT prophylaxis with Lovenox DNR/DNI reason for continued hospitalization:hypokalemia, not tolerating po pending improvement Quality Stroke Does the patient have a stroke diagnosis?: No VTE Prior VTE?: No VTE Risk Level:: Medical - moderate - high VTE Device Contraindication: Treatment Not Indicated VTE Drug Contraindication: N/A - Med Ordered
[2023-03-21] MEDS: Parenteral Nutrition 720 ML 30 ML IV (10:50)
--- NOTE | 2023-03-21 11:11 | MHC.CLN ---
F/U FOR PPN PT DID NOT RECEIVE PPN LAST EVENING BAG IS HANGING AND RUNNING NOW PER NSG PT RECEIVING PPN AT 30 ML PER HOUR TO PROVIDE 367KCALS, 72 G DEXTROSE, 31G PROTEIN REPLETE LYTES NEEDED DIET RX: REGULAR-APPROPRIATE PT CONTINUES WITH POOR PO AND C/O N/V PT RECEIVING ENSURE CLEAR BID TO PROMOTE WOUND HEALING PROVIDES 480 KCALS, 16G PROTEIN SKIN WITH DTI TO COCCYX REVIEWED LABS DISCUSSED WITH PHARMACY RECOMMEND INCREASING PPN TO 50ML/HR (TO BE ADMINISTERED TONIGHT VIA PERIPHERAL LINE) TO PROVIDE 612KCALS, 120G DEXTROSE, 51G PROTEIN REPLETE LYTES NEEDED
--- NOTE | 2023-03-21 11:20 | HE.PHANOTE ---
PPN 03/20/23 - 03/21/23 PPN brought back to pharmacy by instructor adjunct pharmacy technician this morning. PPN not administered on 03/20/23 at 2100 due to no PICC Line access. PPN can be administered peripherally... contacted RN Hoang who was able to start hanging around 1100. [place] and both aware of late administration.
[2023-03-21] MEDS: ondansetron HCL 4 MG/2 ML VIAL IVPUSH ×2 (11:31→17:26)
--- NOTE | 2023-03-21 13:35 | P.PNNP_ITS ---
Subjective Subjective Date of Service: 03/21/23 Interval history: Seen and evaluated this morning ;Still reporting nausea and vomiting ;K levels improved ;No reported other overnight events Physical Exam 2 Vital Signs: Vital Signs: Last Vital Signs Temp 97.4 F 03/21/23 08:00 Pulse 91 03/21/23 08:00 Resp 18 03/21/23 08:00 BP 130/83 03/21/23 08:00 Pulse Ox 93 03/21/23 08:00 O2 Del Method Room Air 03/21/23 08:00 O2 Flow Rate 98 03/14/23 20:02 BMI result Body Mass Index 18.1 Const: General: comfortable and no acute distress O rientation/consciousness: patient oriented x3 HEENT: Head: Yes normocephalic Mouth: Normal oral and palatal mucosa present Eyes: EOM: EOMs intact bilaterally Neck: Neck: Yes supple Resp: Auscultation: clear to auscultation bilaterally Cardio: Jugular venous distension: no JVD Rate: regular rate GI: Palpation (GI): Soft to palpation Auscultation: normal bowel sounds : General: Yes no CVA tenderness Back/Spine/Pelvis: Back: no CVA tenderness Skin: General skin exam: no rashes or lesions noted Neuro: General: patient oriented x3 and moves all extremities Extrem: General: Yes no pedal edema Objective Data Labs 03/20/23 06:05 03/21/23 05:29 Labs: Laboratory Results - last 24 hr 03/20/23 03/21/23 15:06 05:29 Sodium 140 139 Potassium 3.4 D 3.5 Chloride 95 L 96 Carbon Dioxide 26 26 Anion Gap 22 H 21 H BUN 14 14 Creatinine 0.66 0.67 Estim Creat Clear Calc 65.4 64.3 Estimated GFR > 60 > 60 Random Glucose 103 99 Calcium 9.6 9.7 Phosphorus 2.1 L Magnesium 1.8 Total Bilirubin 0.3 AST 37 H ALT 24 Alkaline Phosphatase 180 H Total Protein 6.0 L Albumin 2.9 L Procedures Date of Service Date of Service: 03/21/23 Assessment & Plan Assessment and plan (1) Hypokalemia: Status: Acute Plan 68-year-old woman with metastatic cervical carcinoma. Status post chemotherapy with persistent hypokalemia which is better. Differential was GI losses versus renal losses. CT scan revealed calcified adrenal gland on the right. Hyperaldosteronism was considered especially with alkalosis. However blood pressure seems normal at this time. urine for chloride/ Na reviewed; serum aldosterone /plasma renin activity. Replace potassium aggressively. Further workup based on above results.C/W rest of current supportive care for now Progress Note: Quality Stroke Does the patient have a stroke diagnosis?: No
--- NOTE | 2023-03-21 14:06 | HO.WOUND ---
Wound Consult: Initial 68yr old ?F admitted to [facility] on? 03/15- See progress notes and H&P for detailed history.? Wound consult placed for Coccyx wound. Chart review reveals wound is present on admission - see charting for details. Arrival to bedside patient is agreeable to assessment and photo documentation. Sacrum Etiology: ?Deep Tissue Injury in Evolution ?Present on Admission Measurements: see charting for details Wound Bed: dark purple maroon nonblanchable tissue - areas of epidermal slough noted - pink clean wound bed Drainage / Odor: none noted Edges: ? irregular Melanie wound: ?Red pink maroon slow to peg - hyperpigmented - evidence of previous injury noted - No Induration, Fluctuance or Warmth noted Pain: reports mild pain Goals of Treatment: ? Off Load Pressure - Triad and Foam to protect from friction and allow for moist wound healing. Recommendations: 1. Turn and Reposition every 2 hours and as needed for patient comfort.? Use pillows or wedges to support off loading positions. 2. Off Load all bony prominences with use of pillows and heel boots if needed.? Apply Preventative foams where needed. ? 3. Monitor for incontinence and moisture control, use barrier creams when needed for prevention and treatment. 4. Provide adequate and supplemental nutrition. Nutrition consult inplace and following. 5. Order low air loss mattress. 6. Maintain blood glucose levels per Providers orders if applicable. 7. Sacrum - Off Load Pressure - Cleanse with PH balance spray or wipes, pat dry. ?Apply thin layer of Triad to wound bed. Do not remove all of paste between applications as this may cause further skin damage.? Cover with foam dressing to aid in off loading and protection from friction. Re-consult wound care Nurse for wound deterioration or wound changes.
[2023-03-21 14:59] VITALS: BP 156/84; PULSE 97; RESP 18; TEMP 36.1; O2SAT 97
--- NOTE | 2023-03-21 15:17 | MHC.CM.PN ---
Addendum entered by Lakshmi Mackey 03/21/23 15:32: Patient is off the floor for Galarza placement. Original Note: Patient was sent to IR for PICC line insertion for TPN. The procedure was not successful.
[2023-03-21 17:13] VITALS: BP 139/84; RESP 18; TEMP 36.9; O2SAT 94
[2023-03-21] MEDS: 0.9 % Sodium Chloride Flush 10 ML SYRINGE 5 ML IVFLUSH ×2 (17:32→21:06)
[2023-03-21 19:21] VITALS: BP 130/62; PULSE 90; RESP 18; TEMP 36.2; O2SAT 97
[2023-03-21] MEDS: Parenteral Nutrition 1,200 ML 50 ML IV (21:31)
[2023-03-22] MEDS: Metoclopramide HCl 10 MG/2 ML VIAL 5 MG IVPUSH ×4 (01:36→20:07)
[2023-03-22] MEDS: HYDROmorphone HCl 1 MG/ML SYRINGE IVPUSH ×5 (01:36→20:07)
[2023-03-22 03:16] VITALS: BP 120/71; PULSE 85; RESP 18; TEMP 36.6; O2SAT 97
[2023-03-22 06:53] LABS: Alanine Aminotransferase 19 U/L (0-31); Albumin Level 2.5 g/dL (3.5-5.0); Alkaline Phosphatase 139 U/L (39-117); Anion Gap 11 (12-20); Aspartate Amino Transferase 29 U/L (5-31); Bilirubin Total 0.4 mg/dL (0.0-1.0); Blood Urea Nitrogen 17 mg/dL (9-16); Calcium 9.2 mg/dL (8.4-10.2); Carbon Dioxide 30 mmol/L (22-29); Chloride 96 mmol/L (96-108); Creatinine Clr Calc Pharmacy 71.9; Estimated Glomerular Filt Rate > 60; Glucose Random 172 mg/dL (60-115); Magnesium 1.8 mg/dL (1.6-2.6); Phosphorus 1.8 mg/dL (2.7-4.5); Potassium 3.3 mmol/L (3.3-5.1); Sodium 134 mmol/L (135-145); Total Protein 5.1 g/dL (6.5-8.0)
[2023-03-22 08:00] VITALS: BP 109/76; PULSE 102; RESP 16; TEMP 36.3; O2SAT 94
[2023-03-22] MEDS: oxyCODONE HCl ER 10 MG TAB.ER.12H PO ×2 (09:33→20:08)
[2023-03-22] MEDS: LORazepam 1 MG TABLET PO ×2 (09:33→20:08)
[2023-03-22] MEDS: 0.9 % Sodium Chloride Flush 10 ML SYRINGE 5 ML IVFLUSH ×2 (09:34→20:08)
--- NOTE | 2023-03-22 09:52 | HO.PM.IMPN ---
Subjective Subjective Date of Service: 03/22/23 Interval History: Seen and evaluated this morning Having nausea and vomiting PICC line in place, on TPN Not eating much and refusing some of her medications No reported other overnight events Review of Systems Review of Systems: Yes all other systems are reviewed and are negative Physical Exam Vital Signs: Vital Signs: Last Vital Signs Temp 97.3 F 03/22/23 08:00 Pulse 102 H 03/22/23 08:00 Resp 16 03/22/23 08:00 BP 109/76 03/22/23 08:00 Pulse Ox 94 03/22/23 08:00 O2 Del Method Room Air 03/22/23 08:00 O2 Flow Rate 98 03/14/23 20:02 BMI result Body Mass Index 18.1 Const: Other: Constitutional : Awake, interactive, underweight, not in distress Neck : Normal inspection, Supple Cardiovascular : RRR, no JVP, no lower extremity edema Respiratory : good bilateral air entry, no crackles, wheezes or rhonchi Gastrointestinal: soft, lax, Normal bowel sounds, no significant tenderness with no surgical signs Skin : Warm, Dry Neurological : Alert & oriented x3, No focal deficit Objective Data Active Medications Docusate Sodium (Docusate Sodium 100 Mg Capsule) 100 mg PO BID [facility] Last Admin: 03/22/23 09:42 Dose: Not Given Documented By: CELINA Non-Admin Reason: Patient Refused Enoxaparin Sodium (Enoxaparin Sodium 40 Mg/0.4 Ml Syringe) 40 mg SUBCUT Q24H [facility] Last Admin: 03/22/23 09:42 Dose: Not Given Documented By: CELINA Non-Admin Reason: Patient Refused Gabapentin (Gabapentin 300 Mg Capsule) 300 mg PO BID@0900,1200 [facility] Last Admin: 03/22/23 09:42 Dose: Not Given Documented By: CELINA Non-Admin Reason: Patient Refused Gabapentin (Gabapentin 600 Mg Tablet) 600 mg PO BEDTIME [facility] Last Admin: 03/21/23 21:06 Dose: Not Given Documented By: MAYELA Non-Admin Reason: Patient Refused Hydromorphone HCl (Hydromorphone Hcl 1 Mg/Ml Syringe) 1 mg IVPUSH Q4H PRN; Protocol PRN Reason: Pain, Severe (Pain Scale 7-10) Last Admin: 03/22/23 06:10 Dose: 1 mg Documented By: MAYELA Nutrition (Parenteral) (Parenteral Nutrition) 1,200 mls @ 50 mls/hr IV .Q24H [facility]; Protocol Stop: 03/22/23 20:59 Last Admin: 03/21/23 21:31 Dose: 50 mls/hr Documented By: MAYELA Lorazepam (Lorazepam 1 Mg Tablet) 1 mg PO TID [facility] Last Admin: 03/22/23 09:33 Dose: 1 mg Documented By: CELINA Lorazepam (Lorazepam 2 Mg/Ml Vial) 0.5 mg IVPUSH ONCE PRN PRN Reason: anxiety/restlessness Last Admin: 03/21/23 15:03 Dose: 0.5 mg Documented By: STANISLAV Metoclopramide HCl (Metoclopramide Hcl 10 Mg/2 Ml Vial) 5 mg IVPUSH Q6H [facility] Last Admin: 03/22/23 06:14 Dose: 5 mg Documented By: MAYELA Omeprazole (Omeprazole 20 Mg Capsule.Dr) 20 mg PO DAILY@0630 [facility] Last Admin: 03/21/23 08:06 Dose: 20 mg Documented By: STANISLAV Ondansetron HCl (Ondansetron Odt 4 Mg Tab.Rapdis) 4 mg TRANSLINGU Q12H PRN PRN Reason: nausea and vomiting Last Admin: 03/14/23 20:52 Dose: 4 mg Documented By: TORIN Ondansetron HCl (Ondansetron Hcl 4 Mg/2 Ml Vial) 4 mg IVPUSH Q4H PRN PRN Reason: Nausea and Vomiting Last Admin: 03/21/23 17:26 Dose: 4 mg Documented By: STANISLAV Oxycodone HCl (Oxycodone Hcl Er 10 Mg Tab.Er.12h) 10 mg PO BID [facility] Last Admin: 03/22/23 09:33 Dose: 10 mg Documented By: CELINA Pharmacy Consult (Consult Rx Parenteral Nutrition Ordering) 1 each MISCELLANE DAILY PRN PRN Reason: Consult order Polyethylene Glycol (Polyethylene Glycol 3350 17 Gm Powd.Pack) 17 gm PO DAILY [facility] Last Admin: 03/22/23 09:42 Dose: Not Given Documented By: CELINA Non-Admin Reason: Patient Refused Prednisone (Prednisone 5 Mg Tablet) 10 mg PO BID [facility] Last Admin: 03/22/23 09:42 Dose: Not Given Documented By: CELINA Non-Admin Reason: Patient Refused Senna (Sennosides 8.6 Mg Tablet) 17.2 mg PO BEDTIME PRN PRN Reason: Constipation Sertraline HCl (Sertraline Hcl 50 Mg Tablet) 50 mg PO DAILY [facility] Last Admin: 03/22/23 09:42 Dose: Not Given Documented By: CELINA Non-Admin Reason: Patient Refused Sodium Chloride (0.9 % Sodium Chloride Flush 3 Ml Syringe) 3 ml IVFLUSH QSHIFT [facility] Last Admin: 03/22/23 09:41 Dose: 3 ml Documented By: CELINA Sodium Chloride (0.9 % Sodium Chloride Flush 10 Ml Syringe) 5 ml IVFLUSH TID [facility] Last Admin: 03/22/23 09:34 Dose: 5 ml Documented By: CELINA Vancomycin HCl (Vancomycin Hcl 125 Mg Capsule) 125 mg PO QID [facility] Last Admin: 03/22/23 09:42 Dose: Not Given Documented By: CELINA Non-Admin Reason: Patient Refused Labs 03/20/23 06:05 03/22/23 05:31 Labs: Laboratory Results - last 24 hr 03/22/23 05:31 Hold Purple Top SEE NOTE Anion Gap 11 L Estim Creat Clear Calc 71.9 Estimated GFR > 60 Random Glucose 172 H Calcium 9.2 Phosphorus 1.8 L Magnesium 1.8 Total Bilirubin 0.4 AST 29 ALT 19 Alkaline Phosphatase 139 H Total Protein 5.1 L Albumin 2.5 L Assessment and Plan (1) Nausea & vomiting: Status: Acute (2) Metastatic cancer: Status: Acute (3) Delayed gastric emptying: Status: Acute (4) Chronic, continuous use of opioids: Status: Acute Plan 67F PMH metastatic squamous cell carcinoma of cervix (no longer on chemo, but most recent PET 10/2022 showed good response), chronic pain syndrome with opiate dependence, RA, presented with nausea and vomiting Intractable nausea and vomiting 2/2 bowel obstruction from Metastatic cervical cancer Supporting with IV fluids, antiemetics CT abdomen with SBO, had previous SBFT negative, Has Hx of Gastroparesis as well surgery appreciated - No surgical interventions, no G\J tubes, concern for Carcinomatosis still not tolerating po PICC in place, on TPN discussed goals of care with her and her son. to have hospice team meeting acute on chronic hypokalemia from GI losses replace and monitor, nephro following resolved Moderate protein calorie malnutrition Encourage p.o. intake Placed PICC line and started TPN Metastatic squamous cell carcinoma of cervix squamous cell ca of the cervix, with mets to the adrenal, retrocaval, and retroperitoneal nodes also with likely bladder involvement Most recently seemed to be responding to treatment before stopping it Oncology input appreciated, Hospice care for now, no plans for chemo at this stage given her weight loss Chronic pain syndrome with opiate dependence Continue opiate therapy Recent UTI Asymptomatic, urine culture negative C diff colitis No more diarrhea P.o. vancomycin, patient refuses on occasions Contact precautions History of rheumatoid arthritis doubled prednisone for acute illness Mood disorder Continue sertraline, Ativan Osteoporosis Hold alendronate DVT prophylaxis with Lovenox DNR/DNI reason for continued hospitalization: not tolerating po pending improvement and safe discharge plan. Quality Stroke Does the patient have a stroke diagnosis?: No VTE Prior VTE?: No VTE Risk Level:: Medical - moderate - high VTE Device Contraindication: Treatment Not Indicated VTE Drug Contraindication: N/A - Med Ordered
--- NOTE | 2023-03-22 10:32 | MHC.CLN ---
Addendum entered by Jaqueline Irizarry RD 03/22/23 12:38: TRIGLYCERIDES WITHIN NORMAL LIMITS. RECOMMEND TPN AT MAX GOAL RATE PER NOTE BELOW WITH 46 G LIPIDS. Original Note: F/U PATIENT IS NPO. STATED THAT RECEIVED MEDICINE FOR NAUSEA. REVIEWED LABS. COMMUNICATED WITH PHARMACY. CENTRAL LINE PLACED 01/19. PPN RUNNING AT 50 ML/HR. PROVIDES 612 KCALS, 120 G DEXTROSE, 51 G PROTEIN. RECOMMEND TPN AT 60 ML PER HOUR; 216 G DEXTROSE; 72 G PROTEIN; 1022 KCALS. REPLETE LYTES NEEDED. CHECK TRIGLYCERIDES. IF TRIGLYCERIDES WITHIN ACCEPTABLE LIMITS; RECOMMEND TPN AT MAX GOAL RATE: 60 ML/HOUR; 216 G DEXTROSE; 72 G PROTEIN (1.46 G/KG); LIPIDS 46 G; TOTAL KCALS WITH LIPIDS 1482 KCALS (30 KCALS/KG). REPLETE LYTES NEEDED. FOLLOW FOR DIET TOLERANCE/DIET ADVANCEMENT, TPN TOLERANCE AND LABS.
[2023-03-22] MEDS: ondansetron HCL 4 MG/2 ML VIAL IVPUSH (10:39)
[2023-03-22 11:38] LABS: Triglycerides 101 mg/dL (<150)
--- NOTE | 2023-03-22 14:44 | MHC.CM.PN ---
spoke with son who will try and reach [facility] will contact son to arrange a teaching on sat aftr 11:30
[2023-03-22 15:12] VITALS: BP 97/62; PULSE 99; RESP 15; TEMP 36.2; O2SAT 92
[2023-03-22 19:22] VITALS: BP 116/66; PULSE 100; RESP 17; TEMP 37.1; O2SAT 94
[2023-03-22] MEDS: Parenteral Nutrition 1,440 ML 60 ML IV (20:29)
[2023-03-23] MEDS: Metoclopramide HCl 10 MG/2 ML VIAL 5 MG IVPUSH ×4 (02:10→20:44)
[2023-03-23] MEDS: HYDROmorphone HCl 1 MG/ML SYRINGE IVPUSH ×6 (02:10→23:03)
[2023-03-23 04:00] VITALS: BP 105/62; PULSE 89; RESP 17; TEMP 36.3; O2SAT 93
[2023-03-23 06:30] LABS: Anion Gap 10 (12-20); Blood Urea Nitrogen 16 mg/dL (9-16); Carbon Dioxide 30 mmol/L (22-29); Chloride 97 mmol/L (96-108); Estimated Glomerular Filt Rate > 60; Glucose Random 127 mg/dL (60-115); Potassium 3.8 mmol/L (3.3-5.1); Sodium 133 mmol/L (135-145)
[2023-03-23 06:31] LABS: Alanine Aminotransferase 15 U/L (0-31); Albumin Level 2.4 g/dL (3.5-5.0); Alkaline Phosphatase 127 U/L (39-117); Anion Gap 9 (12-20); Aspartate Amino Transferase 21 U/L (5-31); Bilirubin Total 0.3 mg/dL (0.0-1.0); Blood Urea Nitrogen 16 mg/dL (9-16); Calcium 8.9 mg/dL (8.4-10.2); Carbon Dioxide 32 mmol/L (22-29); Chloride 97 mmol/L (96-108); Estimated Glomerular Filt Rate > 60; Glucose Random 130 mg/dL (60-115); Magnesium 1.8 mg/dL (1.6-2.6); Phosphorus 2.3 mg/dL (2.7-4.5); Potassium 3.8 mmol/L (3.3-5.1); Sodium 134 mmol/L (135-145); Total Protein 5.1 g/dL (6.5-8.0)
[2023-03-23 07:28] VITALS: BP 103/58; PULSE 84; RESP 18; TEMP 36.4; O2SAT 95
[2023-03-23] MEDS: LORazepam 1 MG TABLET PO ×3 (08:05→20:45)
[2023-03-23 08:45] LABS: Albumin Level 2.3 g/dL (3.5-5.0)
[2023-03-23] MEDS: ondansetron HCL 4 MG/2 ML VIAL IVPUSH ×2 (08:54→16:34)
[2023-03-23] MEDS: oxyCODONE HCl ER 10 MG TAB.ER.12H PO ×2 (08:56→20:45)
[2023-03-23] MEDS: 0.9 % Sodium Chloride Flush 10 ML SYRINGE 5 ML IVFLUSH ×3 (08:58→20:45)
--- NOTE | 2023-03-23 10:46 | P.PNIM_ITS ---
Subjective Subjective Date of Service: 03/23/23 Interval History: Seen and evaluated this morning reporting less nausea and vomiting PICC line in place, on TPN No reported other overnight events Review of Systems Review of Systems: Yes all other systems are reviewed and are negative Physical Exam 2 Vital Signs: Vital Signs: Last Vital Signs Temp 97.6 F 03/23/23 07:28 Pulse 84 03/23/23 07:28 Resp 18 03/23/23 07:28 BP 103/58 L 03/23/23 07:28 Pulse Ox 95 03/23/23 07:28 O2 Del Method Room Air 03/23/23 07:28 O2 Flow Rate 98 03/14/23 20:02 BMI result Body Mass Index 18.1 Const: Other: Constitutional : Awake, interactive, underweight, not in distress Neck : Normal inspection, Supple Cardiovascular : RRR, no JVP, no lower extremity edema Respiratory : good bilateral air entry, no crackles, wheezes or rhonchi Gastrointestinal: soft, lax, Normal bowel sounds, no significant tenderness with no surgical signs Skin : Warm, Dry, PICC line in place Neurological : Alert & oriented x3, No focal deficit Objective Data Active Medications Docusate Sodium (Docusate Sodium 100 Mg Capsule) 100 mg PO BID [facility] Last Admin: 03/23/23 09:03 Dose: Not Given Documented By: SHAKEEL Non-Admin Reason: Patient Refused Enoxaparin Sodium (Enoxaparin Sodium 40 Mg/0.4 Ml Syringe) 40 mg SUBCUT Q24H [facility] Last Admin: 03/23/23 09:04 Dose: Not Given Documented By: SHAKEEL Non-Admin Reason: Patient Refused Gabapentin (Gabapentin 300 Mg Capsule) 300 mg PO BID@0900,1200 [facility] Last Admin: 03/23/23 09:04 Dose: Not Given Documented By: SHAKEEL Non-Admin Reason: Patient Refused Gabapentin (Gabapentin 600 Mg Tablet) 600 mg PO BEDTIME [facility] Last Admin: 03/22/23 20:13 Dose: Not Given Documented By: CR Non-Admin Reason: Patient Refused Hydromorphone HCl (Hydromorphone Hcl 1 Mg/Ml Syringe) 1 mg IVPUSH Q4H PRN; Protocol PRN Reason: Pain, Severe (Pain Scale 7-10) Last Admin: 03/23/23 10:09 Dose: 1 mg Documented By: SHAKEEL Nutrition (Parenteral) (Parenteral Nutrition) 1,440 mls @ 60 mls/hr IV .Q24H [facility]; Protocol Stop: 03/23/23 20:59 Last Admin: 03/22/23 20:29 Dose: 60 mls/hr Documented By: CR Nutrition (Parenteral) (Parenteral Nutrition) 1,440 mls @ 60 mls/hr IV .Q24H [facility]; Protocol Stop: 03/24/23 20:59 Lorazepam (Lorazepam 1 Mg Tablet) 1 mg PO TID [facility] Last Admin: 03/23/23 08:05 Dose: 1 mg Documented By: SHAKEEL Lorazepam (Lorazepam 2 Mg/Ml Vial) 0.5 mg IVPUSH ONCE PRN PRN Reason: anxiety/restlessness Last Admin: 03/21/23 15:03 Dose: 0.5 mg Documented By: STANISLAV Metoclopramide HCl (Metoclopramide Hcl 10 Mg/2 Ml Vial) 5 mg IVPUSH Q6H [facility] Last Admin: 03/23/23 06:06 Dose: 5 mg Documented By: CR Omeprazole (Omeprazole 20 Mg Capsule.Dr) 20 mg PO DAILY@0630 [facility] Last Admin: 03/23/23 06:07 Dose: Not Given Documented By: CR Non-Admin Reason: Patient Refused Ondansetron HCl (Ondansetron Odt 4 Mg Tab.Rapdis) 4 mg TRANSLINGU Q12H PRN PRN Reason: nausea and vomiting Last Admin: 03/14/23 20:52 Dose: 4 mg Documented By: TORIN Ondansetron HCl (Ondansetron Hcl 4 Mg/2 Ml Vial) 4 mg IVPUSH Q4H PRN PRN Reason: Nausea and Vomiting Last Admin: 03/23/23 08:54 Dose: 4 mg Documented By: SHAKEEL Oxycodone HCl (Oxycodone Hcl Er 10 Mg Tab.Er.12h) 10 mg PO BID [facility] Last Admin: 03/23/23 08:56 Dose: 10 mg Documented By: SHAKEEL Pharmacy Consult (Consult Rx Parenteral Nutrition Ordering) 1 each MISCELLANE DAILY PRN PRN Reason: Consult order Polyethylene Glycol (Polyethylene Glycol 3350 17 Gm Powd.Pack) 17 gm PO DAILY [facility] Last Admin: 03/23/23 09:04 Dose: Not Given Documented By: SHAKEEL Non-Admin Reason: Patient Refused Prednisone (Prednisone 5 Mg Tablet) 10 mg PO BID [facility] Last Admin: 03/23/23 09:04 Dose: Not Given Documented By: SHAKEEL Non-Admin Reason: Patient Refused Senna (Sennosides 8.6 Mg Tablet) 17.2 mg PO BEDTIME PRN PRN Reason: Constipation Sertraline HCl (Sertraline Hcl 50 Mg Tablet) 50 mg PO DAILY [facility] Last Admin: 03/23/23 09:04 Dose: Not Given Documented By: SHAKEEL Non-Admin Reason: Patient Refused Sodium Chloride (0.9 % Sodium Chloride Flush 3 Ml Syringe) 3 ml IVFLUSH QSHIFT [facility] Last Admin: 03/23/23 08:57 Dose: 3 ml Documented By: SHAKEEL Sodium Chloride (0.9 % Sodium Chloride Flush 10 Ml Syringe) 5 ml IVFLUSH TID [facility] Last Admin: 03/23/23 08:58 Dose: 5 ml Documented By: SHAKEEL Vancomycin HCl (Vancomycin Hcl 125 Mg Capsule) 125 mg PO QID [facility] Last Admin: 03/23/23 09:04 Dose: Not Given Documented By: SHAKEEL Non-Admin Reason: Patient Refused Labs 03/20/23 06:05 03/23/23 05:49 Labs: Laboratory Results - last 24 hr 03/22/23 03/23/23 03/23/23 11:11 05:49 05:49 Anion Gap 9 L 10 L Estim Creat Clear Calc 83.0 Estimated GFR Random Glucose Calcium Phosphorus Magnesium Total Bilirubin AST ALT Alkaline Phosphatase Total Protein Albumin Triglycerides 101 03/23/23 03/23/23 03/23/23 05:49 05:49 05:49 Anion Gap Estim Creat Clear Calc 83.0 Estimated GFR > 60 > 60 Random Glucose 130 H 127 H Calcium 8.9 Phosphorus Magnesium Total Bilirubin AST ALT Alkaline Phosphatase Total Protein Albumin Triglycerides 03/23/23 03/23/23 05:49 05:49 Anion Gap Estim Creat Clear Calc Estimated GFR Random Glucose Calcium 9.0 Phosphorus 2.3 L Magnesium 1.8 Total Bilirubin 0.3 AST 21 ALT 15 Alkaline Phosphatase 127 H Total Protein 5.1 L Albumin 2.4 L 2.3 L Triglycerides Assessment and Plan (1) Nausea & vomiting: Status: Acute (2) Metastatic cancer: Status: Acute (3) Delayed gastric emptying: Status: Acute (4) Intractable nausea and vomiting: Status: Acute Plan 67F PMH metastatic squamous cell carcinoma of cervix (no longer on chemo, but most recent PET 10/2022 showed good response), chronic pain syndrome with opiate dependence, RA, presented with nausea and vomiting Intractable nausea and vomiting 2/2 bowel obstruction from Metastatic cervical cancer PRN antiemetics, ATC Reglan CT abdomen with SBO, had previous SBFT negative, Has Hx of Gastroparesis as well surgery appreciated - No surgical interventions, no G\J tubes, concern for Carcinomatosis still not tolerating po PICC in place, on TPN discussed goals of care with her and her son. to have hospice team meeting acute on chronic hypokalemia from GI losses replace and monitor, nephro following resolved Moderate protein calorie malnutrition Encourage p.o. intake Placed PICC line and started TPN Metastatic squamous cell carcinoma of cervix squamous cell ca of the cervix, with mets to the adrenal, retrocaval, and retroperitoneal nodes also with likely bladder involvement Most recently seemed to be responding to treatment before stopping it Oncology input appreciated, Hospice care for now, no plans for chemo at this stage given her weight loss Chronic pain syndrome with opiate dependence Continue opiate therapy Recent UTI Asymptomatic, urine culture negative C diff colitis No more diarrhea P.o. vancomycin, patient refuses on occasions Contact precautions History of rheumatoid arthritis doubled prednisone for acute illness Mood disorder Continue sertraline, Ativan Osteoporosis Hold alendronate DVT prophylaxis with Lovenox DNR/DNI reason for continued hospitalization: not tolerating po pending improvement and safe discharge plan. Quality Stroke Does the patient have a stroke diagnosis?: No VTE Prior VTE?: No VTE Risk Level:: Medical - moderate - high VTE Device Contraindication: Treatment Not Indicated VTE Drug Contraindication: N/A - Med Ordered
[2023-03-23 15:20] VITALS: BP 99/59; PULSE 82; RESP 16; TEMP 36.7; O2SAT 95
[2023-03-23 15:28] LABS: Renin 9.56 ng/mL/h (0.25-5.82)
[2023-03-23 19:03] VITALS: BP 103/61; PULSE 89; RESP 17; TEMP 36.6; O2SAT 94
[2023-03-23] MEDS: Parenteral Nutrition 1,440 ML 60 ML IV (20:46)
[2023-03-24] MEDS: Metoclopramide HCl 10 MG/2 ML VIAL 5 MG IVPUSH ×3 (01:09→21:53)
[2023-03-24] MEDS: HYDROmorphone HCl 1 MG/ML SYRINGE IVPUSH ×3 (03:04→14:56)
[2023-03-24 04:00] VITALS: BP 132/74; PULSE 97; RESP 16; TEMP 36.9; O2SAT 97
[2023-03-24] MEDS: ondansetron HCL 4 MG/2 ML VIAL IVPUSH ×2 (04:47→12:35)
[2023-03-24] MEDS: HYDROmorphone HCl 0.5 MG/0.5 ML SYRINGE IVPUSH (05:35)
--- NOTE | 2023-03-24 05:39 | MHC.PIE ---
p; pt c/o pain 12/18 to abd n/v. pt demanding more pain med so she can be pain free to talk with dr or nurse . note; pt given last dilaudid at 0300 with pt falling asleep post administration. i; notified, new order dilaudid 0.5 now e; will cont to monitor
[2023-03-24 07:22] VITALS: BP 124/69; PULSE 93; RESP 18; TEMP 37.1; O2SAT 97
--- NOTE | 2023-03-24 08:29 | MHC.CM.PN ---
PT ON TPN AND CONSIDERING HOSPICE CARE [facility] HAVE INDICATED THEY DO NOT DO TPN REFERRAL SENT TO [facility], THEY ARE REVIEWING WITH THE CARE TEAM REFERRAL SENT TO 11 SNFS, NONE OF THEM DO TPN REFERRAL SENT TO 11 VNA'S THIS MORNING TO DETERMINE IF ANY WILL DO TPN [facility] HAS ALREADY DECLINED REFERRAL AWAITING RESPONSES FROM THE OTHERS
[2023-03-24] MEDS: oxyCODONE HCl ER 10 MG TAB.ER.12H PO (08:43)
[2023-03-24] MEDS: LORazepam 1 MG TABLET PO ×2 (08:44→21:59)
[2023-03-24] MEDS: 0.9 % Sodium Chloride Flush 10 ML SYRINGE 5 ML IVFLUSH ×2 (08:45→21:53)
[2023-03-24 08:50] LABS: Anion Gap 14 (12-20); Blood Urea Nitrogen 17 mg/dL (9-16); Calcium 8.8 mg/dL (8.4-10.2); Carbon Dioxide 26 mmol/L (22-29); Chloride 97 mmol/L (96-108); Creatinine Clr Calc Pharmacy 84.6; Estimated Glomerular Filt Rate > 60; Glucose Random 131 mg/dL (60-115); Potassium 4.4 mmol/L (3.3-5.1); Sodium 133 mmol/L (135-145)
--- NOTE | 2023-03-24 10:08 | P.PNIM_ITS ---
Subjective Subjective Date of Service: 03/24/23 Interval History: Seen and evaluated this morning reporting nausea and vomiting Tolerating TPN Pain under fair control No reported other overnight events Review of Systems Review of Systems: Yes all other systems are reviewed and are negative Physical Exam 2 Vital Signs: Vital Signs: Last Vital Signs Temp 98.8 F 03/24/23 07:22 Pulse 93 03/24/23 07:22 Resp 18 03/24/23 07:22 BP 124/69 03/24/23 07:22 Pulse Ox 97 03/24/23 07:22 O2 Del Method Room Air 03/24/23 07:22 O2 Flow Rate 98 03/14/23 20:02 BMI result Body Mass Index 18.1 Const: Other: Constitutional : Awake, interactive, underweight, not in distress Neck : Normal inspection, Supple Cardiovascular : RRR, no JVP, no lower extremity edema Respiratory : good bilateral air entry, no crackles, wheezes or rhonchi Gastrointestinal: soft, lax, Normal bowel sounds, no significant tenderness with no surgical signs Skin : Warm, Dry, PICC line in place Neurological : Alert & oriented x3, No focal deficit Objective Data Active Medications Docusate Sodium (Docusate Sodium 100 Mg Capsule) 100 mg PO BID [facility] Last Admin: 03/24/23 08:46 Dose: Not Given Documented By: SHAKEEL Non-Admin Reason: Patient Refused Enoxaparin Sodium (Enoxaparin Sodium 40 Mg/0.4 Ml Syringe) 40 mg SUBCUT Q24H [facility] Last Admin: 03/24/23 08:46 Dose: Not Given Documented By: SHAKEEL Non-Admin Reason: Patient Refused Gabapentin (Gabapentin 300 Mg Capsule) 300 mg PO BID@0900,1200 [facility] Last Admin: 03/24/23 08:46 Dose: Not Given Documented By: SHAKEEL Non-Admin Reason: Patient Refused Gabapentin (Gabapentin 600 Mg Tablet) 600 mg PO BEDTIME [facility] Last Admin: 03/23/23 20:45 Dose: Not Given Documented By: CR Non-Admin Reason: Patient Refused Hydromorphone HCl (Hydromorphone Hcl 2 Mg Tablet) 2 mg PO Q4H PRN PRN Reason: Pain, Severe (Pain Scale 7-10) Nutrition (Parenteral) (Parenteral Nutrition) 1,440 mls @ 60 mls/hr IV .Q24H [facility]; Protocol Stop: 03/24/23 20:59 Last Admin: 03/23/23 20:46 Dose: 60 mls/hr Documented By: CR Lorazepam (Lorazepam 1 Mg Tablet) 1 mg PO TID [facility] Last Admin: 03/24/23 08:44 Dose: 1 mg Documented By: SHAKEEL Lorazepam (Lorazepam 2 Mg/Ml Vial) 0.5 mg IVPUSH ONCE PRN PRN Reason: anxiety/restlessness Last Admin: 03/21/23 15:03 Dose: 0.5 mg Documented By: STANISLAV Metoclopramide HCl (Metoclopramide Hcl 10 Mg/2 Ml Vial) 5 mg IVPUSH Q6H [facility] Last Admin: 03/24/23 05:35 Dose: 5 mg Documented By: CR Omeprazole (Omeprazole 20 Mg Capsule.Dr) 20 mg PO DAILY@0630 [facility] Last Admin: 03/24/23 04:08 Dose: Not Given Documented By: CR Non-Admin Reason: Patient Refused Ondansetron HCl (Ondansetron Odt 4 Mg Tab.Rapdis) 4 mg TRANSLINGU Q12H PRN PRN Reason: nausea and vomiting Last Admin: 03/14/23 20:52 Dose: 4 mg Documented By: TORIN Ondansetron HCl (Ondansetron Hcl 4 Mg/2 Ml Vial) 4 mg IVPUSH Q4H PRN PRN Reason: Nausea and Vomiting Last Admin: 03/24/23 04:47 Dose: 4 mg Documented By: CR Oxycodone HCl (Oxycodone Hcl Er 10 Mg Tab.Er.12h) 20 mg PO BID [facility] Pharmacy Consult (Consult Rx Parenteral Nutrition Ordering) 1 each MISCELLANE DAILY PRN PRN Reason: Consult order Polyethylene Glycol (Polyethylene Glycol 3350 17 Gm Powd.Pack) 17 gm PO DAILY [facility] Last Admin: 03/24/23 08:46 Dose: Not Given Documented By: SHAKEEL Non-Admin Reason: Patient Refused Prednisone (Prednisone 5 Mg Tablet) 5 mg PO BID [facility] Senna (Sennosides 8.6 Mg Tablet) 17.2 mg PO BEDTIME PRN PRN Reason: Constipation Sertraline HCl (Sertraline Hcl 50 Mg Tablet) 50 mg PO DAILY [facility] Last Admin: 03/24/23 08:46 Dose: Not Given Documented By: SHAKEEL Non-Admin Reason: Patient Refused Sodium Chloride (0.9 % Sodium Chloride Flush 3 Ml Syringe) 3 ml IVFLUSH QSHIFT [facility] Last Admin: 03/24/23 08:45 Dose: 3 ml Documented By: SHAKEEL Sodium Chloride (0.9 % Sodium Chloride Flush 10 Ml Syringe) 5 ml IVFLUSH TID [facility] Last Admin: 03/24/23 08:45 Dose: 5 ml Documented By: SHAKEEL Vancomycin HCl (Vancomycin Hcl 125 Mg Capsule) 125 mg PO QID [facility] Last Admin: 03/24/23 08:46 Dose: Not Given Documented By: SHAKEEL Non-Admin Reason: Patient Refused Labs 03/20/23 06:05 03/24/23 07:25 Labs: Laboratory Results - last 24 hr 03/18/23 03/24/23 05:22 07:25 Anion Gap 14 Estim Creat Clear Calc 84.6 Estimated GFR > 60 Random Glucose 131 H Calcium 8.8 Renin 9.56 H Assessment and Plan (1) Nausea & vomiting: Status: Acute (2) Metastatic cancer: Status: Acute Plan 67F PMH metastatic squamous cell carcinoma of cervix (no longer on chemo, but most recent PET 10/2022 showed good response), chronic pain syndrome with opiate dependence, RA, presented with nausea and vomiting Intractable nausea and vomiting 2/2 bowel obstruction from Metastatic cervical cancer PRN antiemetics, ATC Reglan oral CT abdomen with SBO, had previous SBFT negative, Has Hx of Gastroparesis as well surgery appreciated - No surgical interventions, no G\J tubes, concern for Carcinomatosis still not tolerating po PICC in place, on TPN discussed goals of care with her and her son. to have hospice team meeting acute on chronic hypokalemia from GI losses replace and monitor, nephro following resolved Moderate protein calorie malnutrition Encourage p.o. intake Placed PICC line and started TPN Abdominal pain 2/2 Metastatic squamous cell carcinoma of cervix squamous cell ca of the cervix, with mets to the adrenal, retrocaval, and retroperitoneal nodes also with likely bladder involvement Most recently seemed to be responding to treatment before stopping it Oncology input appreciated, Hospice care for now, no plans for chemo at this stage given her weight loss DC IV Dilaudid, start PO Increase Oxycodone ER to 20 mg bid Monitor response Chronic pain syndrome with opiate dependence Continue opiate therapy Recent UTI Asymptomatic, urine culture negative C diff colitis No more diarrhea P.o. vancomycin, patient refuses on occasions Contact precautions History of rheumatoid arthritis doubled prednisone for acute illness Mood disorder Continue sertraline, Ativan Osteoporosis Hold alendronate DVT prophylaxis with Lovenox DNR/DNI reason for continued hospitalization: not tolerating po pending improvement and safe discharge plan. Quality Stroke Does the patient have a stroke diagnosis?: No VTE Prior VTE?: No VTE Risk Level:: Medical - moderate - high VTE Device Contraindication: Treatment Not Indicated VTE Drug Contraindication: N/A - Med Ordered
[2023-03-24 10:30] LABS: Alanine Aminotransferase 20 U/L (0-31); Albumin Level 2.6 g/dL (3.5-5.0); Alkaline Phosphatase 160 U/L (39-117); Anion Gap 17 (12-20); Aspartate Amino Transferase 35 U/L (5-31); Bilirubin Total 0.2 mg/dL (0.0-1.0); Blood Urea Nitrogen 18 mg/dL (9-16); Calcium 8.9 mg/dL (8.4-10.2); Carbon Dioxide 25 mmol/L (22-29); Chloride 97 mmol/L (96-108); Estimated Glomerular Filt Rate > 60; Glucose Random 128 mg/dL (60-115); Magnesium 2.1 mg/dL (1.6-2.6); Phosphorus 3.8 mg/dL (2.7-4.5); Potassium 4.5 mmol/L (3.3-5.1); Sodium 134 mmol/L (135-145); Total Protein 5.9 g/dL (6.5-8.0)
[2023-03-24] MEDS: HYDROmorphone HCl 2 MG TABLET PO (12:35)
--- NOTE | 2023-03-24 12:44 | PC.NURSE ---
MD Park made aware pt continues to refuse PO medication unless it is Ativan, Oxycodone, or Dilaudid.
--- NOTE | 2023-03-24 14:34 | PC.NURSE ---
Addendum entered by Patricia Martínez RN 03/24/23 14:53: Per MD hold off on NG tube, allow for surgical team to assess first. Original Note: MD Park made aware pt vomited copious amounts of green liquid vomit, 1000ML measured, plus additional unable to measure. MD instructed to place NG tube.
[2023-03-24 15:36] VITALS: BP 110/74; PULSE 88; RESP 16; TEMP 36.8; O2SAT 98
[2023-03-24] MEDS: diazePAM 10 MG/2 ML CARTRIDGE 2.5 MG IVPUSH (15:36)
[2023-03-24 19:02] VITALS: BP 105/66; PULSE 81; RESP 16; TEMP 36.7; O2SAT 98
[2023-03-24 19:41] VITALS: BP 105/66; PULSE 81; RESP 16; TEMP 36.7; O2SAT 98
[2023-03-24] MEDS: oxyCODONE HCl ER 10 MG TAB.ER.12H 20 MG PO (21:58)
[2023-03-24] MEDS: Parenteral Nutrition 1,440 ML 60 ML IV (22:03)
[2023-03-25 00:14] VITALS: BP 109/58; PULSE 73; RESP 16; TEMP 36.1; O2SAT 97
[2023-03-25] MEDS: Metoclopramide HCl 10 MG/2 ML VIAL 5 MG IVPUSH ×4 (04:06→21:26)
[2023-03-25] MEDS: Morphine Sulfate Oral Sol 10 MG/5 ML SOLUTION PO ×3 (04:10→19:28)
[2023-03-25 06:20] LABS: Alanine Aminotransferase 23 U/L (0-31); Albumin Level 2.3 g/dL (3.5-5.0); Alkaline Phosphatase 154 U/L (39-117); Anion Gap 12 (12-20); Aspartate Amino Transferase 43 U/L (5-31); Bilirubin Total 0.2 mg/dL (0.0-1.0); Blood Urea Nitrogen 14 mg/dL (9-16); Carbon Dioxide 27 mmol/L (22-29); Chloride 98 mmol/L (96-108); Estimated Glomerular Filt Rate > 60; Glucose Random 100 mg/dL (60-115); Magnesium 2.1 mg/dL (1.6-2.6); Potassium 4.2 mmol/L (3.3-5.1); Sodium 133 mmol/L (135-145); Total Protein 4.9 g/dL (6.5-8.0)
[2023-03-25 07:34] VITALS: BP 112/59; PULSE 74; RESP 18; TEMP 36.7; O2SAT 93
--- NOTE | 2023-03-25 09:43 | MHC.CLN ---
F/U CONTINUES WITH TPN AND NPO STATUS. VOMITING NOTED. RECEIVED REGLAN. LABS REVIEWED. COMMUNICATED WITH PHARMACY. RECOMMEND CONTINUE TPN AT MAX GOAL RATE: TPN AT 60 ML PER HOUR; 216 G DEXTROSE; 72 G PROTEIN (1.46 G/KG); 46 G LIPIDS; TOTAL KCALS WITH LIPIDS 1482 KCALS (30 KCALS/KG). REPLETE LYTES NEEDED. FOLLOW FOR TPN TOLERANCE AND LABS.
[2023-03-25] MEDS: LORazepam 1 MG TABLET PO ×2 (09:54→20:26)
[2023-03-25] MEDS: oxyCODONE HCl ER 10 MG TAB.ER.12H 20 MG PO ×2 (09:54→21:29)
--- NOTE | 2023-03-25 11:03 | P.DS_ITS ---
DS: Providers Provider Date of Service: 03/26/23 Date of admission: 03/15/23 16:58 Primary care physician: Dean Villalba MD Consults: 03/15/23 18:13 Consult to General Surgery Routine Consulting Provider: [facility] Reason for consultation: ?sbo 03/16/23 09:52 Consult to Nephrology Routine Consulting Provider: [facility] Reason for consultation: chronic hypokalemia 03/20/23 00:37 Consult to Wound Care Routine Reason for consultation: ? dti coccyx 03/21/23 07:31 Consult to Hematology / Oncology Routine Consulting Provider: Cheyenne Durbin Reason for consultation: SBO w metastatic cancer, treatments\goals of care discussion. DS: Diagnosis Discharge Diagnosis (1) Metastatic cancer: Status: Acute (2) Chronic, continuous use of opioids: Status: Acute (3) Hypokalemia: Status: Acute (4) Delayed gastric emptying: Status: Acute (5) Intractable nausea and vomiting: Status: Acute (6) Failure to thrive in adult: Status: Acute (7) Weakness: Status: Acute DS: Summary Hospital Course Hospital Course: Admission note HPI 67F PMH metastatic squamous cell carcinoma of cervix (no longer on chemo, but most recent PET 10/2022 showed good response), chronic pain syndrome with opiate dependence, RA, presented with nausea and vomiting. Patient was recently discharged about 1 month prior to presentation from [facility] for similar symptoms and was also seen in between at [facility] for similar symptoms. She has been nauseous, vomiting, poor p.o. intake for several months. She reports recently being put on antibiotics for urinary tract infection. In ED plan was for transition to hospice care at home, noted to be C diff positive, not tolerating p.o., therefore, transitioned to inpatient was requested. Hospital course Admitted for Intractable nausea and vomiting secondary to partial bowel obstruction from Metastatic cervical cancer as confirmed by CT abdomen with SBO, had previous SBFT negative, Has Hx of Gastroparesis as well. She was evaluated by surgery who recommended No surgical interventions, no G\J tubes as her metastatic cancer concerning for Carcinomatosis in her abdomen. Treated with IV fluids, Anti-emetics and pain medications. She became able to tolerate only small amount of diet and she continued to feel nauseous and had vomiting on multiple occasions which is expected as her cancer still progressing. A PICC line was placed and she was started on TPN which will continue at home to help her nutritional needs given her Moderate protein calorie malnutrition. She was found to have electrolytes imbalance which were corrected. Different pain medications approaches were tried. She was most comfortable on PO OXycontinue + PRN ORal Morphine concentrate which she will be sent home on. She has a known squamous cell ca of the cervix, with mets to the adrenal, retrocaval, and retroperitoneal nodes also with likely bladder involvement. Evaluated by Oncology who suggested Hospice care at this stage, no plans for chemo at this stage given her weight loss and deconditioning. Goals of care discussed with her and her family. She would prefer to have Hospice discussion after going back home. [facility] will follow on this topic after discharge. She tested C diff colitis on admission and started treatment with PO Vancomycin. Diarrhea resolved. To finish 4 more days of Vancomycin PO. Plan Continue TPN at home with [facility] Pain medications as prescribed Reglan to help with nausea To follow with dr Durbin as outpatient Time Attestation Discharge coordination time: Greater than 30 minutes Quality: Safe Use of Opioids Does Pt have an Active Cancer Diagnosis on the Problem List?: Yes Opioid Measure Date for [facility] Report: 02/24/23 Opioid Measure Time for [facility] Report: 09:19 Quality: Stroke Does the patient have a stroke diagnosis?: No Physical Exam Vital Signs: Vital Signs: Last Vital Signs Temp 98.0 F 03/25/23 07:34 Pulse 74 03/25/23 07:34 Resp 18 03/25/23 07:34 BP 112/59 L 03/25/23 07:34 Pulse Ox 93 03/25/23 07:34 O2 Del Method Room Air 03/25/23 07:34 O2 Flow Rate 98 03/14/23 20:02 BMI result Body Mass Index 18.1 Const: Other: Constitutional : Awake, interactive, underweight, not in distress Neck : Normal inspection, Supple Cardiovascular : RRR, no JVP, no lower extremity edema Respiratory : good bilateral air entry, no crackles, wheezes or rhonchi Gastrointestinal: soft, lax, Normal bowel sounds, no significant tenderness with no surgical signs Skin : Warm, Dry, PICC line in place Neurological : Alert & oriented x3, No focal deficit DS: Data Data Completed and Pending Labs on day of discharge: Laboratory Results - last 24 hr 03/25/23 05:01 Sodium 133 L Potassium 4.2 Chloride 98 Carbon Dioxide 27 Anion Gap 12 BUN 14 Creatinine 0.52 Estim Creat Clear Calc 83.0 Estimated GFR > 60 Random Glucose 100 Calcium 8.0 L D Phosphorus 3.0 Magnesium 2.1 Total Bilirubin 0.2 AST 43 H ALT 23 Alkaline Phosphatase 154 H Total Protein 4.9 L Albumin 2.3 L Discharge Plan Discharge Anticipated Discharge Date/Time: 03/25/23 10:54 Patient Disposition: Home Health Service Discharge Diagnosis: Nausea and vomiting from partial bowel obstruction Referrals: [facility] [Other] - 1 Week Dean Villalba MD [Primary Care Provider] - 1 Week Discharge Medications: New morphine 10 mg/5 mL Solution 10 mg PO Q4H PRN (Reason: Pain, Severe (Pain Scale 7-10)) Qty: 500 0RF Rx Instructions: Partial Fill upon patient request. metoclopramide HCl 5 mg/5 mL solution 10 mg PO TIDWM Qty: 1000 0RF oxycodone [OxyContin] 20 mg tablet,oral only,ext.rel.12 hr 20 mg PO BID Qty: 60 0RF Rx Instructions: Partial Fill upon patient request. vancomycin 125 mg capsule 125 mg PO QID Qty: 20 0RF Continued (DME) [employer] Adult Brief Misc See Rx Instructions .Route Qty: 60 2RF Rx Instructions: 2 daily As directed, 30 days gabapentin 600 mg tablet 600 mg PO DAILY 30 Days Qty: 30 3RF Rx Instructions: at bedtime ondansetron 4 mg tablet,disintegrating 4 mg PO Q12H PRN (Reason: nausea and vomiting) 30 Days Qty: 20 0RF celecoxib 200 mg capsule 200 mg PO BID PRN (Reason: pain) alendronate 70 mg tablet 70 mg PO QWEEK prednisone 5 mg tablet 5 mg PO BID ferrous sulfate 325 mg (65 mg iron) tablet 325 mg PO BID sertraline 50 mg tablet 50 mg PO DAILY sennosides [senna] 8.6 mg tablet 17.2 mg PO BEDTIME PRN (Reason: Constipation) pantoprazole 40 mg tablet,delayed release (DR/EC) 40 mg PO DAILY docusate sodium 100 mg capsule 100 mg PO BID gabapentin 300 mg capsule 300 mg PO BID@0900,1200 polyethylene glycol 3350 17 gram Powder In Packet 17 g PO DAILY magnesium oxide 400 mg magnesium Tablet 400 mg PO DAILY Rx Instructions: X 5 DAYS lorazepam 1 mg tablet 1 mg PO BID PRN (Reason: anxiety) (DME) cane Device See Rx Instructions .Route Qty: 1 0RF Rx Instructions: As directed (DME) Ultra-Light Rollator Misc See Rx Instructions .Route Qty: 1 0RF Rx Instructions: Rollator walker with seat and brakes. Daily as directed. 999 days potassium chloride 10 mEq capsule, extended release 10 meq PO BID 15 Days Qty: 30 0RF Rx Instructions: X 7 DAYS Discontinued cefpodoxime 100 mg Tablet 100 mg PO BID Rx Instructions: must administer with a meal/food hydromorphone 2 mg Tablet 2 mg PO Q6H PRN (Reason: Breakthrough Pain) morphine 15 mg tablet extended release 15 mg PO BID Rx Instructions: MassPat Verified. Partial refill upon request. Discharge Orders: Discharge Order (Routine); Ordered 03/26/23 Ordered By: Francisco Park Diet: Advance to usual diet Activity on Discharge: As tolerated Stand Alone Forms: Patient Portal Discharge page Care Plan Goals: Continue TPN Health Concerns: Read below Plan of Treatment: Read below Assessment: You were treated for partial intestinal obstruction as a result of metastatic cancer. your symptoms improved and you were started on TPN for nutrition. Continue TPN at home with [facility] Pain medications as prescribed Reglan to help with nausea Vancomycin for 5 more days To follow with dr Durbin as outpatient
--- NOTE | 2023-03-25 12:37 | P.PNIM_ITS ---
Subjective Subjective Date of Service: 03/25/23 Interval History: Seen and evaluated this morning Had nausea but no vomiting overnight Tolerating TPN Pain under fair control No reported other overnight events Review of Systems Review of Systems: Yes all other systems are reviewed and are negative Physical Exam 2 Vital Signs: Vital Signs: Last Vital Signs Temp 98.0 F 03/25/23 07:34 Pulse 74 03/25/23 07:34 Resp 18 03/25/23 07:34 BP 112/59 L 03/25/23 07:34 Pulse Ox 93 03/25/23 07:34 O2 Del Method Room Air 03/25/23 07:34 O2 Flow Rate 98 03/14/23 20:02 BMI result Body Mass Index 18.1 Const: Other: Constitutional : Awake, interactive, underweight, not in distress Neck : Normal inspection, Supple Cardiovascular : RRR, no JVP, no lower extremity edema Respiratory : good bilateral air entry, no crackles, wheezes or rhonchi Gastrointestinal: soft, lax, Normal bowel sounds, no significant tenderness with no surgical signs Skin : Warm, Dry, PICC line in place Neurological : Alert & oriented x3, No focal deficit Objective Data Active Medications Diazepam (Diazepam 10 Mg/2 Ml Cartridge) 2.5 mg IVPUSH ONCE PRN PRN Reason: ANXIETY/RESTLESSNESS Last Admin: 03/24/23 15:36 Dose: 2.5 mg Documented By: SHAKEEL Docusate Sodium (Docusate Sodium 100 Mg Capsule) 100 mg PO BID [facility] Last Admin: 03/25/23 11:20 Dose: Not Given Documented By: CELINA Non-Admin Reason: Patient Refused Enoxaparin Sodium (Enoxaparin Sodium 40 Mg/0.4 Ml Syringe) 40 mg SUBCUT Q24H [facility] Last Admin: 03/25/23 11:20 Dose: Not Given Documented By: CELINA Non-Admin Reason: Patient Refused Gabapentin (Gabapentin 300 Mg Capsule) 300 mg PO BID@0900,1200 [facility] Last Admin: 03/25/23 11:20 Dose: Not Given Documented By: CELINA Non-Admin Reason: Patient Refused Gabapentin (Gabapentin 600 Mg Tablet) 600 mg PO BEDTIME [facility] Last Admin: 03/24/23 22:09 Dose: Not Given Documented By: MAYELA Non-Admin Reason: Patient Refused Hydromorphone HCl (Hydromorphone Hcl 1 Mg/Ml Syringe) 1 mg IVPUSH ONCE PRN; Protocol PRN Reason: Breakthrough Pain Last Admin: 03/24/23 14:56 Dose: 1 mg Documented By: SHAKEEL Hydromorphone HCl (Hydromorphone Hcl 1 Mg/Ml Syringe) 1 mg IVPUSH ONCE PRN; Protocol PRN Reason: Pain, Severe (Pain Scale 7-10) Nutrition (Parenteral) (Parenteral Nutrition) 1,440 mls @ 60 mls/hr IV .Q24H [facility]; Protocol Stop: 03/25/23 20:59 Last Admin: 03/24/23 22:03 Dose: 60 mls/hr Documented By: MAYELA Nutrition (Parenteral) (Parenteral Nutrition) 1,440 mls @ 60 mls/hr IV .Q24H [facility]IS [facility]; Protocol Stop: 03/26/23 20:59 Lorazepam (Lorazepam 1 Mg Tablet) 1 mg PO TID [facility] Last Admin: 03/25/23 09:54 Dose: 1 mg Documented By: CELINA Metoclopramide HCl (Metoclopramide Hcl 10 Mg/2 Ml Vial) 5 mg IVPUSH Q6H [facility] Last Admin: 03/25/23 10:56 Dose: 5 mg Documented By: CELINA Morphine Sulfate (Morphine Sulfate Oral Nasima 10 Mg/5 Ml Solution) 10 mg PO Q4H PRN PRN Reason: Pain, Severe (Pain Scale 7-10) Last Admin: 03/25/23 04:10 Dose: 10 mg Documented By: MAYELA Omeprazole (Omeprazole 20 Mg Capsule.Dr) 20 mg PO DAILY@0630 [facility] Last Admin: 03/25/23 05:36 Dose: Not Given Documented By: MAYELA Non-Admin Reason: Patient Refused Ondansetron HCl (Ondansetron Odt 4 Mg Tab.Rapdis) 4 mg TRANSLINGU Q12H PRN PRN Reason: nausea and vomiting Last Admin: 03/14/23 20:52 Dose: 4 mg Documented By: TORIN Ondansetron HCl (Ondansetron Hcl 4 Mg/2 Ml Vial) 4 mg IVPUSH Q4H PRN PRN Reason: Nausea and Vomiting Last Admin: 03/24/23 12:35 Dose: 4 mg Documented By: SHAKEEL Oxycodone HCl (Oxycodone Hcl Er 10 Mg Tab.Er.12h) 20 mg PO BID [facility] Last Admin: 03/25/23 09:54 Dose: 20 mg Documented By: CELINA Pharmacy Consult (Consult Rx Parenteral Nutrition Ordering) 1 each MISCELLANE DAILY PRN PRN Reason: Consult order Polyethylene Glycol (Polyethylene Glycol 3350 17 Gm Powd.Pack) 17 gm PO DAILY [facility] Last Admin: 03/25/23 11:21 Dose: Not Given Documented By: CELINA Non-Admin Reason: Patient Refused Prednisone (Prednisone 5 Mg Tablet) 5 mg PO BID [facility] Last Admin: 03/25/23 11:21 Dose: Not Given Documented By: CELINA Non-Herson Reason: Patient Refused Senna (Sennosides 8.6 Mg Tablet) 17.2 mg PO BEDTIME PRN PRN Reason: Constipation Sertraline HCl (Sertraline Hcl 50 Mg Tablet) 50 mg PO DAILY [facility] Last Admin: 03/25/23 11:21 Dose: Not Given Documented By: CELNIA Non-Admin Reason: Patient Refused Sodium Chloride (0.9 % Sodium Chloride Flush 3 Ml Syringe) 3 ml IVFLUSH QSHIFT [facility] Last Admin: 03/25/23 10:56 Dose: Not Given Documented By: CELINA Non-Admin Reason: Previously Administered Sodium Chloride (0.9 % Sodium Chloride Flush 10 Ml Syringe) 5 ml IVFLUSH TID [facility] Last Admin: 03/25/23 10:56 Dose: Not Given Documented By: CELINA Non-Admin Reason: Previously Administered Labs 03/20/23 06:05 03/25/23 05:01 Labs: Laboratory Results - last 24 hr 03/25/23 05:01 Anion Gap 12 Estim Creat Clear Calc 83.0 Estimated GFR > 60 Random Glucose 100 Calcium 8.0 L D Phosphorus 3.0 Magnesium 2.1 Total Bilirubin 0.2 AST 43 H ALT 23 Alkaline Phosphatase 154 H Total Protein 4.9 L Albumin 2.3 L Assessment and Plan (1) Nausea & vomiting: Status: Acute (2) Intractable nausea and vomiting: Status: Acute Plan 67F PMH metastatic squamous cell carcinoma of cervix (no longer on chemo, but most recent PET 10/2022 showed good response), chronic pain syndrome with opiate dependence, RA, presented with nausea and vomiting Intractable nausea and vomiting 2/2 bowel obstruction from Metastatic cervical cancer PRN antiemetics, ATC Reglan oral CT abdomen with SBO, had previous SBFT negative, Has Hx of Gastroparesis as well surgery appreciated - No surgical interventions, no G\J tubes, concern for Carcinomatosis still not tolerating po PICC in place, on TPN discussed goals of care with her and her son. to have hospice team meeting after discharge with [facility] provider as she wants to go home first then think about the next step. acute on chronic hypokalemia from GI losses replace and monitor, nephro following resolved Moderate protein calorie malnutrition Encourage p.o. intake Placed PICC line and started TPN Abdominal pain 2/2 Metastatic squamous cell carcinoma of cervix squamous cell ca of the cervix, with mets to the adrenal, retrocaval, and retroperitoneal nodes also with likely bladder involvement Most recently seemed to be responding to treatment before stopping it Oncology input appreciated, Hospice care for now, no plans for chemo at this stage given her weight loss DC IV Dilaudid, start PO Increase Oxycodone ER to 20 mg bid Monitor response Chronic pain syndrome with opiate dependence Continue opiate therapy C diff colitis No more diarrhea P.o. vancomycin, patient refuses on occasions Contact precautions History of rheumatoid arthritis doubled prednisone for acute illness Mood disorder Continue sertraline, Ativan Osteoporosis Hold alendronate DVT prophylaxis with Lovenox DNR/DNI reason for continued hospitalization: not tolerating po pending improvement and safe discharge plan. Quality Stroke Does the patient have a stroke diagnosis?: No VTE Prior VTE?: No VTE Risk Level:: Medical - moderate - high VTE Device Contraindication: Treatment Not Indicated VTE Drug Contraindication: N/A - Med Ordered
--- NOTE | 2023-03-25 13:39 | MHC.CM.PN ---
pt to be dcd tomorrow as yareli can not see pt till tomorrow night md aware as well as [facility]
[2023-03-25] MEDS: 0.9 % Sodium Chloride Flush 10 ML SYRINGE 5 ML IVFLUSH ×2 (15:29→21:26)
[2023-03-25 15:34] VITALS: BP 134/73; PULSE 80; RESP 17; TEMP 36.3; O2SAT 96
[2023-03-25 19:07] VITALS: BP 139/78; PULSE 87; RESP 18; TEMP 36.5; O2SAT 95
[2023-03-25] MEDS: ondansetron HCL 4 MG/2 ML VIAL IVPUSH (19:28)
[2023-03-25] MEDS: Parenteral Nutrition 1,440 ML 60 ML IV (22:44)
[2023-03-26 01:41] VITALS: BP 115/64; PULSE 81; RESP 18; TEMP 36.2; O2SAT 95
[2023-03-26 07:32] VITALS: BP 113/60; PULSE 79; RESP 18; TEMP 37.2; O2SAT 98
[2023-03-26] MEDS: Morphine Sulfate Oral Sol 10 MG/5 ML SOLUTION PO (07:43)
[2023-03-26] MEDS: ondansetron HCL 4 MG/2 ML VIAL IVPUSH (07:43)
--- NOTE | 2023-03-26 08:42 | MHC.CM.PN ---
CM received a call this morning from [facility], they are able to get TPN supplies there for DC on 03/27/23, They have let [facility] know this. CM was told that son is looking into getting a secondary health ins. Pt only has Medicare and will have co pays. CM has reached out to financial to see if they are working with this pt. CM to follow and continue to assist with DC plan.
[2023-03-26 08:48] LABS: Alanine Aminotransferase 47 U/L (0-31); Albumin Level 2.4 g/dL (3.5-5.0); Alkaline Phosphatase 209 U/L (39-117); Anion Gap 10 (12-20); Aspartate Amino Transferase 53 U/L (5-31); Bilirubin Total 0.2 mg/dL (0.0-1.0); Blood Urea Nitrogen 12 mg/dL (9-16); Calcium 8.5 mg/dL (8.4-10.2); Carbon Dioxide 28 mmol/L (22-29); Chloride 99 mmol/L (96-108); Creatinine Clr Calc Pharmacy 81.3; Estimated Glomerular Filt Rate > 60; Glucose Random 110 mg/dL (60-115); Magnesium 2.1 mg/dL (1.6-2.6); Phosphorus 3.3 mg/dL (2.7-4.5); Potassium 4.1 mmol/L (3.3-5.1); Sodium 133 mmol/L (135-145); Total Protein 5.3 g/dL (6.5-8.0)
--- NOTE | 2023-03-26 09:09 | MHC.CLN ---
F/U CONTINUES WITH TPN PO INTAKE 25% NAUSEA NOTED LABS REVIEWED DISCUSSED WITH PHARMACY RECOMMEND CONTINUE TPN AT MAX GOAL RATE: AT 60 ML PER HOUR WITH 46 G LIPIDS PROVIDES 1482 TOTAL KCALS (30 KCALS/KG), 216 G DEXTROSE; 72 G PROTEIN (1.46 G/KG) REPLETE LYTES NEEDED POSSIBLY D/C HOME WITH [facility] TODAY FOLLOWING WITH TEAM
[2023-03-26] MEDS: oxyCODONE HCl ER 10 MG TAB.ER.12H 20 MG PO (10:27)
[2023-03-26] MEDS: LORazepam 1 MG TABLET PO (10:28)
[2023-03-26] MEDS: Metoclopramide HCl 10 MG/2 ML VIAL 5 MG IVPUSH (10:28)
--- NOTE | 2023-03-26 11:39 | MHC.CM.PN ---
Pt has been medically cleared for DC, she is going home via private transport today. She will have home care services from [facility] for her TPN, and [facility].
== END 2023-03-26 14:27 | disposition home health service (06) | DRG 375 ==
LOC: HO.ED 03-15 16:44 → HO.EDOVER 03-15 17:06 → HO.S3 03-15 19:15
PROVIDERS: Internal Medicine Hypertension Specialist; Physician Assistant; Radiology Vascular & Interventional Radiology; Admitting Provider Internal Medicine; Emergency Provider Student in an Organized Health Care Education/Training Program; PCP Family Medicine; Visit Provider Student in an Organized Health Care Education/Training Program
PROC: 02HV33Z Insertion of Infusion Device into Superior Vena Cava, Percutaneous Approach (ICD-10-PCS; principal; 2023-03-21 14:30)
DX: C78.6 Secondary malignant neoplasm of retroperitoneum and peritoneum (principal); A04.72 Enterocolitis due to Clostridium difficile, not specified as recurrent; C77.8 Secondary and unspecified malignant neoplasm of lymph nodes of multiple regions; F11.20 Opioid dependence, uncomplicated; E44.0 Moderate protein-calorie malnutrition; Z68.1 Body mass index [BMI] 19.9 or less, adult; E87.3 Alkalosis; C79.71 Secondary malignant neoplasm of right adrenal gland; C79.11 Secondary malignant neoplasm of bladder; K31.84 Gastroparesis; E88.A Wasting disease (syndrome) due to underlying condition; E87.6 Hypokalemia; F39 Unspecified mood [affective] disorder; R62.7 Adult failure to thrive; L89.156 Pressure-induced deep tissue damage of sacral region; M81.0 Age-related osteoporosis without current pathological fracture; Z66 Do not resuscitate; M05.9 Rheumatoid arthritis with rheumatoid factor, unspecified; G89.4 Chronic pain syndrome; C53.9 Malignant neoplasm of cervix uteri, unspecified; Z20.822 Contact with and (suspected) exposure to COVID-19; Z87.891 Personal history of nicotine dependence; Z79.52 Long term (current) use of systemic steroids; Z79.899 Other long term (current) drug therapy
CPT/HCPCS: 0241U; 36415; 36556; 74176; 76937; 80048; 80053; 81001; 82040; 82088; 82248; 82436; 82533; 82570; 82947; 83690; 83735; 84100; 84133; 84244; 84300; 84439; 84443; 84478; 85025; 85027; 87324; 87493; 87502; 97162; 99285; C1751; J0737; J1170; J2060; J2270; J2405; J2550; J2765; J3360; J3475; J3480; J7120

== ENCOUNTER 2023-03-15 16:58 | Outpatient (BNV) | payer MEDICARE, SELFPAY | END 2023-03-21 14:40 | PROVIDERS: Admitting Provider Internal Medicine; Emergency Provider Student in an Organized Health Care Education/Training Program; PCP Family Medicine; Visit Provider Radiology Vascular & Interventional Radiology | DX: R11.2 Nausea with vomiting, unspecified (principal) | CPT/HCPCS: 36556; 76937 ==

== ENCOUNTER → 2023-03-15 16:58 | Outpatient (BNV) | payer MEDICARE, SELFPAY | PROVIDERS: Admitting Provider Internal Medicine; Emergency Provider Student in an Organized Health Care Education/Training Program; PCP Family Medicine; Visit Provider Internal Medicine Hypertension Specialist | DX: E87.6 Hypokalemia (principal) | CPT/HCPCS: 99222; 99232; 99499 ==

== ENCOUNTER → 2023-03-15 16:58 | Outpatient (BNV) | payer MEDICARE, SELFPAY | PROVIDERS: Admitting Provider Internal Medicine; Emergency Provider Student in an Organized Health Care Education/Training Program; PCP Family Medicine; Visit Provider Internal Medicine | DX: C79.9 Secondary malignant neoplasm of unspecified site (principal); F11.90 Opioid use, unspecified, uncomplicated; E87.6 Hypokalemia; K30 Functional dyspepsia; R11.2 Nausea with vomiting, unspecified; R62.7 Adult failure to thrive; R53.1 Weakness | CPT/HCPCS: 99223; 99232; 99233; 99239 ==

== ENCOUNTER → 2023-03-15 16:58 | Outpatient (BNV) | payer MEDICARE, SELFPAY | PROVIDERS: Admitting Provider Internal Medicine; Emergency Provider Student in an Organized Health Care Education/Training Program; PCP Family Medicine; Visit Provider Surgery | DX: R11.2 Nausea with vomiting, unspecified (principal) | CPT/HCPCS: 99222; 99232 ==

== ENCOUNTER → 2023-03-15 16:58 | Outpatient (BNV) | payer MEDICARE, SELFPAY | PROVIDERS: Admitting Provider Internal Medicine; Emergency Provider Student in an Organized Health Care Education/Training Program; PCP Family Medicine; Visit Provider Internal Medicine | DX: C53.9 Malignant neoplasm of cervix uteri, unspecified (principal); C79.9 Secondary malignant neoplasm of unspecified site | CPT/HCPCS: 99222 ==

== ENCOUNTER 2023-04-01 15:11 | Inpatient (IN) | payer MEDICARE, SELFPAY ==
--- NOTE | ~2023-04-01 | XR_ITS ---
EXAMINATION: XR CHEST CLINICAL INFORMATION: Weakness COMPARISON: Chest x-ray 05/23/2022 TECHNIQUE: Frontal view of the chest was obtained. FINDINGS: The lungs are well-expanded and clear. Heart size and pulmonary vascularity is normal. Is a right PICC line with its tip in the distal SVC. No gross bony abnormality. XR/XR chest 1V IMPRESSION: Unremarkable chest exam.
--- NOTE | ~2023-04-01 | CT_ITS ---
EXAMINATION: CT HEAD WITHOUT CONTRAST CLINICAL INFORMATION: Confusion COMPARISON: 08/08/2021 TECHNIQUE: Multidetector volumetric imaging of the head was performed without intravenous contrast material. This CT examination was performed using dose optimization techniques as appropriate, variously including the following: *Automated exposure control *Adjustment of mA and/or kV according to patient size (this includes techniques or standardized protocols for targeted exams where dose is matched to indication/reason for exam; i.e. extremities or head) *Use of iterative reconstruction technique Dose: 733 mGy-cm FINDINGS: There is no evidence of acute intracranial hemorrhage or territorial infarction. No abnormal mass-effect or midline shift is seen. Johnson to white matter differentiation is well preserved. No extra axial fluid collections. The ventricles are normal in size and configuration. A few subtle foci of hypoattenuation in the subcortical and periventricular white matter are most consistent with chronic microangiopathic changes. The soft tissues and osseous structures are normal. The sinuses and mastoid air cells are clear. CT/CT head/brain wo IV con IMPRESSION: No acute intracranial pathology.
--- NOTE | ~2023-04-01 | CT_ITS ---
EXAMINATION: CT ABDOMEN AND PELVIS WITHOUT CONTRAST CLINICAL INFORMATION: Vomiting, history of small bowel obstruction COMPARISON: 03/15/2023 TECHNIQUE: Multidetector volumetric imaging was performed from the superior aspect of the liver through the pubic symphysis. Sagittal and coronal reformatted images were obtained on the technologist's workstation. This CT examination was performed using dose optimization techniques as appropriate, variously including the following: *Automated exposure control *Adjustment of mA and/or kV according to patient size (this includes techniques or standardized protocols for targeted exams where dose is matched to indication/reason for exam; i.e. extremities or head) *Use of iterative reconstruction technique DLP: 364 mGy-cm FINDINGS: LUNG BASES: Regions of predominantly groundglass opacity are noted at the lung bases, greatest in the lower lobes. LIVER, GALLBLADDER, AND BILIARY TREE: Unenhanced liver appears grossly unremarkable. Patient is status post cholecystectomy. Redemonstrated mild intrahepatic and extra hepatic biliary ductal dilatation, similar to prior. PANCREAS: Unremarkable. SPLEEN: Unremarkable. ADRENAL GLANDS: Redemonstrated coarse calcification of the right adrenal gland, unchanged from prior. Left adrenal gland appears grossly unremarkable. KIDNEYS AND URETERS: No hydronephrosis or obstructing calculus bilaterally. BLADDER: Mildly distended and grossly unremarkable. GASTROINTESTINAL TRACT: Distal esophagus is fluid-filled. There is prominent fluid distention of the stomach. There is also fluid distention of the majority of small bowel, similar to slightly less prominent overall compared to 03/15/2023; this could be reflective of an ileus or residual degree of distal small bowel obstruction. Intraluminal contrast material is present throughout the colon without disproportionate dilation. The distal sigmoid colon and rectum appear collapsed; in the absence of intravenous contrast, evaluation is otherwise limited and it is difficult to determine whether the soft tissue surrounding the intraluminal contrast is due to colonic wall thickening or malignant thickening related to the reported history of cervical neoplasm. ABDOMINAL WALL: No significant hernia is appreciated. LYMPH NODES: Limited evaluation in the absence of intravenous contrast, especially in the pelvis. No discrete adenopathy identified elsewhere. VASCULAR: There is atherosclerotic calcification along the aorta. PELVIC VISCERA: Suboptimal assessment in the absence of intravenous contrast. There is prominent soft tissue in the posterior pelvis including in the vicinity of the distal sigmoid colon and rectum which could be related to the history of cervical neoplasm. Appearance is grossly similar to 03/15/2023. OSSEOUS STRUCTURES: Degenerative changes are present in the lumbar spine. CT/CT abdomen pelvis wo IV con IMPRESSION: 1. Prominent fluid distention of the stomach and small bowel, overall similar to slightly less prominent compared to 03/15/2023. Appearance could be reflective of a degree of residual distal small bowel obstruction versus ileus. Intraluminal contrast material remains present throughout the colon without disproportionate dilation. The distal sigmoid colon and rectum appear collapsed; it is difficult to determine whether prominent soft tissue surrounding the intraluminal contrast is due to colonic wall thickening or malignant thickening related to the reported history of cervical neoplasm. 2. Regions of predominantly groundglass opacity at the lung bases, greatest in the lower lobes, which could be due to aspiration or an infectious/inflammatory etiology. 3. Additional redemonstrated findings as noted above, including coarsely calcified right adrenal mass.
[2023-04-01 15:17] VITALS: BP 94/62; PULSE 80; O2SAT 99
[2023-04-01 15:37] VITALS: BP 87/65; PULSE 84; RESP 16; BMI 17.3
[2023-04-01 16:09] VITALS: O2SAT 93
[2023-04-01 16:23] VITALS: BP 96/54; PULSE 85; RESP 13; TEMP 35.7; O2SAT 94
--- NOTE | 2023-04-01 16:31 | ED_ITS ---
HPI - General Adult General Chief complaint: General Medical Stated complaint: Chest pain, whole body pain, low rr Time Seen by Provider: 04/01/23 15:55 Source: EMS Mode of arrival: EMS Limitations: altered mental status History of Present Illness HPI narrative: 68-year-old female who reportedly has stage IV cancer although it is unclear if she is on hospice or not presents to the ER with needing her PICC line flushed per EMS patient is unable to provide any history of present illness. There is no family available here for further history. We tried to call all the numbers listed and are unable to get hold of any family. Of note patient has a MOLST form which reports DNR DNI and do not transfer to hospital as needed for comfort Related Data Home Medications Medication Instructions Recorded Confirmed alendronate 70 mg tablet 70 mg PO QWEEK 02/02/23 03/14/23 celecoxib 200 mg capsule 200 mg PO BID PRN pain 02/02/23 03/14/23 ferrous sulfate 325 mg (65 mg 325 mg PO BID 02/02/23 03/14/23 iron) tablet prednisone 5 mg tablet 5 mg PO BID 02/02/23 03/14/23 sertraline 50 mg tablet 50 mg PO DAILY 02/02/23 03/14/23 docusate sodium 100 mg capsule 100 mg PO BID 03/14/23 03/14/23 gabapentin 300 mg capsule 300 mg PO BID@0900,1200 03/14/23 03/14/23 magnesium oxide 400 mg PO DAILY 03/14/23 03/14/23 pantoprazole 40 mg tablet,delayed 40 mg PO DAILY 03/14/23 03/14/23 release polyethylene glycol 3350 17 gram 17 g PO DAILY 03/14/23 03/14/23 oral powder packet sennosides 8.6 mg tablet (senna) 17.2 mg PO BEDTIME PRN Constipation 03/14/23 03/14/23 Previous Rx's Medication Instructions Recorded cane #1 ea 08/18/21 walker (Ultra-Light Rollator misc) #1 ea 08/31/22 diaper,brief,adult,disposable #60 ea 09/13/22 ([employer] [place] Adult Brief) potassium chloride 10 mEq 10 meq PO BID 15 days #30 caps 02/20/23 capsule,extended release gabapentin 600 mg tablet 600 mg PO DAILY 30 days #30 tabs 02/26/23 ondansetron 4 mg disintegrating 4 mg PO Q12H PRN nausea and 03/05/23 tablet vomiting 30 days #20 tabs metoclopramide HCl 5 mg/5 mL oral 10 mg (10 mL) PO TIDWM #1,000 mL 03/25/23 solution morphine 10 mg/5 mL oral solution 10 mg (5 mL) PO Q4-6H PRN pain 03/26/23 (scale score 7-10) #500 mL oxycodone 20 mg tablet,crush 20 mg PO BID #60 tabs 03/26/23 resistant,extended release 12 hr (OxyContin) vancomycin 125 mg capsule 125 mg PO QID #20 caps 03/26/23 lorazepam 1 mg tablet 2 mg (2 x 1 mg) PO BID PRN anxiety 03/27/23 15 days #60 tabs Allergies Allergy/AdvReac Type Severity Reaction Status Date / Time buprenorphine [Belbuca] Allergy Intermediate Anaphylaxis Verified 02/20/23 09:29 Review of Systems 2 Review of Systems: Yes Unobtainable due to mental status Neurologic: Reports confusion Psychiatric: Psychiatric: Reports confusion [facility] Past Medical History Attestation statement: The following information was validated with the patient. Source: old records reviewed and nursing notes reviewed Medical History Delayed gastric emptying Squamous cell carcinoma of cervix Complex regional pain syndrome i of lower limb, bilateral Anxiety with depression Chronic pain syndrome Osteoporosis Cervical cancer Opiate abuse, episodic Osteoarthritis of both knees Primary osteoarthritis of knees, bilateral Seropositive rheumatoid arthritis Back pain Surgical History History of D&C History of tonsillectomy History of appendectomy History of cholecystectomy Family History Family History Father Acute CVA (cerebrovascular accident) Mother Hypertension Hypercholesterolemia Brother Liver transplant status Family history of thyroid problem Social History Social History Household Members: Family Housing: House Are you a 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 Cognitive needs: No Hearing needs: No Vision needs: No Physical Exam ED Vital Signs: Vital Signs - 24 hr 04/01/23 15:37 04/01/23 16:09 04/01/23 16:23 Temperature 96.2 F L Pulse Rate 84 85 Respiratory Rate 16 13 Blood Pressure 87/65 L 96/54 L Pulse Oximetry 93 94 Oxygen Delivery Method Room Air Room Air 04/01/23 20:53 04/01/23 23:34 Temperature Pulse Rate 89 87 Respiratory Rate 9 L 11 L Blood Pressure 112/74 141/78 H Pulse Oximetry 93 Oxygen Delivery Method Room Air BMI result Body Mass Index 17.3 Const General: cooperative, alert and confusion Nutritional Appearance: malnourished and thin Orientation/consciousness: confusion Limitations: altered mental status HENMT Other: tacky MM Head: Yes normal to inspection Ears: hearing grossly normal bilaterally General nose exam: Normal external nose present Face and sinus: Yes normal facial exam Mouth: Normal oral and palatal mucosa present Throat: Yes posterior oropharynx normal Eyes General: appearance normal, both eyes and all related structures Pupils: Equal, round and reactive pupils present Neck Neck: Yes normal visual inspection, Yes full ROM, Yes no lymphadenopathy and Yes no meningeal signs Chest Chest palpation & inspection: normal inspection of the chest Resp Effort & Inspection: normal respiratory effort Auscultation: clear to auscultation bilaterally Cardio Rate: regular rate Rhythm: regular rhythm Peripheral pulses: Peripheral pulses 2+ throughout GI Inspection: Yes normal to inspection Palpation (GI): Soft to palpation and nontender Auscultation: normal bowel sounds Back/Spine/Pelvis Thoracic/Lumbar Spine: thoracic and lumbar spine normal to inspection Skin General skin exam: no rashes or lesions noted Neuro General: moves all extremities, no meningeal signs, no focal motor deficits, normal sensation to monofilament and confusion Cranial nerves: Yes Equal, round and reactive pupils present Extrem General: Yes normal to inspection Course Course Course Narrative: 1829-I was able to speak to the patient's son Kevin. He tells me the patient was discharged from this facility on Saturday with plans to do home TPN. They were supposed to have a [employer] facilitate this. He tells me with the nurse came to do the TPN she could not find the supplies. They have been going back and forth with the company to try to get TPN set up in the meantime. Today they were informed that the patient needs to come to the ER to have new labs drawn and her PICC line flushed. He reports the patient has a history of stage IV cervical cancer with Mets. She has not currently wanting to do chemotherapy. She does have vomiting and poor p.o. intake as well as generalized weakness which has been progressive since not having the TPN. He tells me that they have plans to speak to both palliative care and hospice but have not made any definite decisions. At this time the patient is a DNR DNI but if she requires hospitalization they would pursue that. They do not want any aggressive measures. Reevaluation(s) Reevaluation #1: 2230-Delay in imaging as every time they lay the patient down she vomits and staff is concerned she may aspirate. I spoke to the patient and she is confused but wants us to run tests on her and continue with treatment Reevaluation #2: 0030-CT chest is consistent with aspiration pneumonia. At this time infection is suspected. Blood cultures and lactic acid ordered. Antibiotics ordered. CT abdomen pelvis shows ileus versus obstruction. Message sent to General surgery to review imaging as well as the hospitalist for admission as patient at this time wants to continue with care and be admitted to the hospital. This was also what the family wanted when I spoke to them early. I did call and leave a message with the son to update him. I did also speak to the patient and explained her that she is quite ill but she was not willing to discuss any goals of care conversations. Medications Administered Discontinued Medications Generic Name Dose Route Start Last Admin Trade Name Freq PRN Reason Stop Dose Admin Diazepam 2.5 mg 04/01/23 22:35 04/01/23 22:41 Diazepam 10 Mg/2 Ml Cartridge IVPUSH 04/01/23 22:36 2.5 mg STAT STA Administration Sodium Chloride 1,000 mls @ 999 mls/hr 04/01/23 20:27 04/01/23 20:48 Ns IV 04/01/23 21:27 999 mls/hr .Q1H1M STA Administration Morphine Sulfate 2 mg 04/01/23 22:32 04/01/23 22:41 Morphine Sulfate 2 Mg/Ml Cartridge IVPUSH 04/01/23 22:33 2 mg ONCE ONE Administration Protocol Ondansetron HCl 4 mg 04/01/23 20:40 04/01/23 20:47 Ondansetron Hcl 4 Mg/2 Ml Vial IVPUSH 04/01/23 20:41 4 mg ONCE ONE Administration Ondansetron HCl 4 mg 04/01/23 22:32 04/01/23 22:41 Ondansetron Hcl 4 Mg/2 Ml Vial IVPUSH 04/01/23 22:33 4 mg ONCE ONE Administration Medical Decision Making Medical Decision Making MDM Narrative: 68-year-old female who reportedly has stage IV cancer although it is unclear if she is on hospice or not presents to the ER with needing her PICC line flushed per EMS patient is unable to provide any history of present illness. There is no family available here for further history. We tried to call all the numbers listed and are unable to get hold of any family. Of note patient has a MOLST form which reports DNR DNI and do not transfer to hospital as needed for comfort. On arrival patient is thin-appearing, tacky mucous membranes. c/o diffuse body pain Patient alert, confused (unaware of baseline) Will need labs, UA, CXR, CT head, CT A/P Will likely need GOC conversation and CM involvement Differential Diagnosis Differential Diagnoses: The differential diagnosis associated with the presentation includes Electrolyte abnormality, malnutrition, failure to thrive Admission/Observation Consideration of admission/observation: Escalation of care including admission/observation considered CT abdomen pelvis concerning for ileus versus obstruction with continued vomiting, JEREMIAS requiring IV fluids with resuscitation hand CT of the chest which is concerning for aspiration pneumonia requiring IV antibiotics and admission Consult Healthcare Provider Management of the patient was discussed with: Hospitalist and In File Operator 1250-Dr. Lopez was contacted and he will review images. 1250-spoke to hospitalist who will accept patient (dr santiago) Lab Data MDM Lab Attestation statement: I reviewed the patient's lab results. 04/01/23 19:59 04/01/23 19:59 Labs: Lab Results 04/01/23 Range/Units 19:59 WBC 18.7 H (4.8-10.8) X10*3/uL RBC 4.26 (4.20-5.50) X10*6/uL Hgb 12.0 (12.0-16.0) g/dl Hct 35.1 L (37.0-47.0) % MCV 82.4 (80.0-98.0) fL MCH 28.2 (27.0-33.0) pg MCHC 34.2 (31.0-35.0) g/dl RDW 17.4 H (11.0-16.0) % Plt Count 349 (160-400) X10*3/uL MPV 8.8 L (9.4-12.3) fL Immature Gran % (Auto) 0.9 H (0.0-0.4) % Neut % (Auto) 90.0 H (45-73) % Lymph % (Auto) 6.4 L (20-40) % [place] % (Auto) 2.4 (2-11) % Eos % (Auto) 0.0 (0-4) % Baso % (Auto) 0.3 (0-2) % Lymph # (Auto) 1.2 (1.2-4.9) X10*3/uL [place] # (Auto) 0.5 (0.1-1.2) X10*3/uL Eos # (Auto) 0.0 (0.0-0.4) X10*3/uL Baso # (Auto) 0.1 (0.0-0.2) X10*3/uL Abs Immat Gran (auto) 0.16 H (0.00-0.03) X10*3/uL Absolute Neuts (auto) 16.8 H (2.0-8.3) x10*3/uL Absolute Nucleated RBC 0.000 (0.0-0.012) X10*3/uL Nucleated RBC % (auto) 0.0 (0.0-0.2) /100WBC Sodium 132 L (135-145) mmol/L Potassium 3.5 (3.3-5.1) mmol/L Chloride 82 L (96-108) mmol/L Carbon Dioxide 33 H (22-29) mmol/L Anion Gap 21 H (12-20) BUN 28 H (9-16) mg/dL Creatinine 1.79 H (0.5-1.4) mg/dL Estim Creat Clear Calc 23.0 Estimated GFR 28 Random Glucose 126 H (60-115) mg/dL Calcium 10.5 H D (8.4-10.2) mg/dL Magnesium 2.0 (1.6-2.6) mg/dL Total Bilirubin 0.4 (0.0-1.0) mg/dL Direct Bilirubin 0.2 (0.0-0.5) mg/dL AST 41 H (5-31) U/L ALT 35 H (0-31) U/L Alkaline Phosphatase 232 H (39-117) U/L Troponin I High Sens 37.7 H D (<3.5-17.0) ng/L Total Protein 6.5 (6.5-8.0) g/dL Albumin 3.0 L (3.5-5.0) g/dL Independent Interpretation I performed an independent interpretation of an: EKG, Plain X-Ray and CT Scan Interpretation: I reviewed the EKG which shows normal sinus rhythm with a rate of 88, normal [place], normal QRS, normal QT I independently viewed the chest x-ray, CT head, CT A/P, agree with the radiologist's Radiology Impression Discussion of test interpretation with radiology: I have reviewed the radiologist's reading. Radiologist Impression: [place] [id number] XRay Report Signed Patient: Evelyn Marin MR#: [id number] : 1955 Acct:[id number] Age/Sex: 68 / F ADM Date: 04/01/23 Loc: .ED Attending Dr: Ordering Physician: Freida Kennedy NP Date of Service: 04/01/23 Procedure(s): XR chest 1V Accession Number(s): [id number] cc: Physician,Unknown ; Freida Kennedy NP~ EXAMINATION: XR CHEST CLINICAL INFORMATION: Weakness COMPARISON: Chest x-ray 05/23/2022 TECHNIQUE: Frontal view of the chest was obtained. FINDINGS: The lungs are well-expanded and clear. Heart size and pulmonary vascularity is normal. Is a right PICC line with its tip in the distal SVC. No gross bony abnormality. XR/XR chest 1V IMPRESSION: Unremarkable chest exam. [address] [address] [address] Scan Report Signed Patient: Evelyn Marin MR#: [id number] : 1955 Acct:[id number] Age/Sex: 68 / F ADM Date: 04/01/23 Loc: HO.ED Attending Dr: Ordering Physician: Freida Kennedy NP Date of Service: 04/01/23 Procedure(s): CT head/brain wo IV con Accession Number(s): [id number] cc: Physician,Unknown ; Freida Kennedy NP~ EXAMINATION: CT HEAD WITHOUT CONTRAST CLINICAL INFORMATION: Confusion COMPARISON: 08/08/2021 TECHNIQUE: Multidetector volumetric imaging of the head was performed without intravenous contrast material. This CT examination was performed using dose optimization techniques as appropriate, variously including the following: *Automated exposure control *Adjustment of mA and/or kV according to patient size (this includes techniques or standardized protocols for targeted exams where dose is matched to indication/reason for exam; i.e. extremities or head) *Use of iterative reconstruction technique Dose: 733 mGy-cm FINDINGS: There is no evidence of acute intracranial hemorrhage or territorial infarction. No abnormal mass-effect or midline shift is seen. Johnson to white matter differentiation is well preserved. No extra axial fluid collections. The ventricles are normal in size and configuration. A few subtle foci of hypoattenuation in the subcortical and periventricular white matter are most consistent with chronic microangiopathic changes. The soft tissues and osseous structures are normal. The sinuses and mastoid air cells are clear. CT/CT head/brain wo IV con IMPRESSION: No acute intracranial pathology. [address] [address] [address] Scan Report Signed Patient: Evelyn Marin MR#: [id number] : 1955 Acct:[id number] Age/Sex: 68 / F ADM Date: 04/01/23 Loc: HO.ED Attending Dr: Ordering Physician: Freida Kennedy NP Date of Service: 04/01/23 Procedure(s): CT abdomen pelvis wo IV con Accession Number(s): [id number] cc: Physician,Unknown ; Freida Kennedy NP~ EXAMINATION: CT ABDOMEN AND PELVIS WITHOUT CONTRAST CLINICAL INFORMATION: Vomiting, history of small bowel obstruction COMPARISON: 03/15/2023 TECHNIQUE: Multidetector volumetric imaging was performed from the superior aspect of the liver through the pubic symphysis. Sagittal and coronal reformatted images were obtained on the technologist's workstation. This CT examination was performed using dose optimization techniques as appropriate, variously including the following: *Automated exposure control *Adjustment of mA and/or kV according to patient size (this includes techniques or standardized protocols for targeted exams where dose is matched to indication/reason for exam; i.e. extremities or head) *Use of iterative reconstruction technique DLP: 364 mGy-cm FINDINGS: LUNG BASES: Regions of predominantly groundglass opacity are noted at the lung bases, greatest in the lower lobes. LIVER, GALLBLADDER, AND BILIARY TREE: Unenhanced liver appears grossly unremarkable. Patient is status post cholecystectomy. Redemonstrated mild intrahepatic and extra hepatic biliary ductal dilatation, similar to prior. PANCREAS: Unremarkable. SPLEEN: Unremarkable. ADRENAL GLANDS: Redemonstrated coarse calcification of the right adrenal gland, unchanged from prior. Left adrenal gland appears grossly unremarkable. KIDNEYS AND URETERS: No hydronephrosis or obstructing calculus bilaterally. BLADDER: Mildly distended and grossly unremarkable. GASTROINTESTINAL TRACT: Distal esophagus is fluid-filled. There is prominent fluid distention of the stomach. There is also fluid distention of the majority of small bowel, similar to slightly less prominent overall compared to 03/15/2023; this could be reflective of an ileus or residual degree of distal small bowel obstruction. Intraluminal contrast material is present throughout the colon without disproportionate dilation. The distal sigmoid colon and rectum appear collapsed; in the absence of intravenous contrast, evaluation is otherwise limited and it is difficult to determine whether the soft tissue surrounding the intraluminal contrast is due to colonic wall thickening or malignant thickening related to the reported history of cervical neoplasm. ABDOMINAL WALL: No significant hernia is appreciated. LYMPH NODES: Limited evaluation in the absence of intravenous contrast, especially in the pelvis. No discrete adenopathy identified elsewhere. VASCULAR: There is atherosclerotic calcification along the aorta. PELVIC VISCERA: Suboptimal assessment in the absence of intravenous contrast. There is prominent soft tissue in the posterior pelvis including in the vicinity of the distal sigmoid colon and rectum which could be related to the history of cervical neoplasm. Appearance is grossly similar to 03/15/2023. OSSEOUS STRUCTURES: Degenerative changes are present in the lumbar spine. CT/CT abdomen pelvis wo IV con IMPRESSION: 1. Prominent fluid distention of the stomach and small bowel, overall similar to slightly less prominent compared to 03/15/2023. Appearance could be reflective of a degree of residual distal small bowel obstruction versus ileus. Intraluminal contrast material remains present throughout the colon without disproportionate dilation. The distal sigmoid colon and rectum appear collapsed; it is difficult to determine whether prominent soft tissue surrounding the intraluminal contrast is due to colonic wall thickening or malignant thickening related to the reported history of cervical neoplasm. 2. Regions of predominantly groundglass opacity at the lung bases, greatest in the lower lobes, which could be due to aspiration or an infectious/inflammatory etiology. 3. Additional redemonstrated findings as noted above, including coarsely calcified right adrenal mass. Independent Historian Clinical information obtained from an independent historian. History obtained from or confirmed by: EMS Prescription Management I considered prescription management with: Antibiotic Critical Care Time Critical Care Time Critical Care Time: Yes Total Critical Care Time: 60 Attestation: d/w with both hospitalist service and general surgery team d/w case management, family, patient in regards to goals of care Discharge Plan Discharge Clinical Impression: Leukocytosis, Adult failure to thrive, JEREMIAS (acute kidney injury), Aspiration pneumonia, Ileus Patient Disposition: Admitted As Inpatient
--- NOTE | 2023-04-01 18:34 | PC.NURSE ---
pt alert, oriented to self and place. came from home via ambulance to get her picc line flushed and labs drawn. she gets TPN at home and has been having difficulty getting txs. pt has hx of stage 4 cervical cancer, is not on any treatment, does not plan to pursue treatment. pt reports full body ache related to her cancer, the pain is her baseline. picc flushed, patent.
--- NOTE | 2023-04-01 19:46 | ECG_ITS ---
Test Reason : CHEST PAIN Blood Pressure : / mmHG Vent. Rate : 088 BPM Atrial Rate : 088 BPM P-R Int : 144 ms QRS Dur : 068 ms QT Int : 366 ms P-R-T Axes : 086 -25 -52 degrees QTc Int : 442 ms Normal sinus rhythm Low voltage QRS Possible Inferior infarct , age undetermined Anterolateral subtle ST elevations and T wave inversions Abnormal ECG When compared with ECG of 02-FEB-2023 06:57, Ischemic changes present Referred By: Freida Samuel Electronically Signed By:Vicente Bolanos
--- NOTE | 2023-04-01 19:49 | PC.NURSE ---
This RN took over pt care @ 1900. Pt sitting up in bed. Pt vomited. This RN made provider aware. Tech getting labs and ekg now. Plan of care ongoing.
--- NOTE | 2023-04-01 20:04 | PC.NURSE ---
Pt labs drawn and sent. Plan of care ongoing.
[2023-04-01 20:05] LABS: MANUAL DIFF FLAG NO
[2023-04-01 20:07] LABS: Basophils Absolute Auto 0.1 X10*3/uL (0.0-0.2); Basophils Percent Auto 0.3 % (0-2); Hematocrit 35.1 % (37.0-47.0); Imm Gran Abs Auto 0.16 X10*3/uL (0.00-0.03); Imm Gran Pct Auto 0.9 % (0.0-0.4); Lymphocytes Absolute Auto 1.2 X10*3/uL (1.2-4.9); Lymphocytes Percent Auto 6.4 % (20-40); Mean Corpuscular HGB Conc 34.2 g/dl (31.0-35.0); Mean Corpuscular Hemoglobin 28.2 pg (27.0-33.0); Mean Corpuscular Volume 82.4 fL (80.0-98.0); Mean Platelet Volume 8.8 fL (9.4-12.3); Monocytes Absolute Auto 0.5 X10*3/uL (0.1-1.2); Monocytes Percent Auto 2.4 % (2-11); Neutrophils Absolute Auto 16.8 x10*3/uL (2.0-8.3); Platelet Count 349 X10*3/uL (160-400); Red Blood Count 4.26 X10*6/uL (4.20-5.50); Red Cell Distribution Width 17.4 % (11.0-16.0); White Blood Count 18.7 X10*3/uL (4.8-10.8)
--- NOTE | 2023-04-01 20:21 | MHC.EDTECH ---
Patient had a episode of emesis and therefore required total bed change
[2023-04-01 20:23] LABS: Alanine Aminotransferase 35 U/L (0-31); Alkaline Phosphatase 232 U/L (39-117); Anion Gap 21 (12-20); Aspartate Amino Transferase 41 U/L (5-31); Bilirubin Direct 0.2 mg/dL (0.0-0.5); Bilirubin Total 0.4 mg/dL (0.0-1.0); Blood Urea Nitrogen 28 mg/dL (9-16); Calcium 10.5 mg/dL (8.4-10.2); Carbon Dioxide 33 mmol/L (22-29); Chloride 82 mmol/L (96-108); Estimated Glomerular Filt Rate 28; Glucose Random 126 mg/dL (60-115); Potassium 3.5 mmol/L (3.3-5.1); Sodium 132 mmol/L (135-145); Total Protein 6.5 g/dL (6.5-8.0)
[2023-04-01 20:29] LABS: Troponin-I High Sensitivity 37.7 ng/L (<3.5-17.0)
[2023-04-01] MEDS: ondansetron HCL 4 MG/2 ML VIAL IVPUSH ×2 (20:47→22:41)
--- NOTE | 2023-04-01 20:47 | MHC.CM.ED ---
Work up is pending. Medical record review. [facility] 02/02-02/16 and 03/15-03/26. Pt had partial SBO and C.Diff. Pt D/C home on 03/26 with [facility] and [facility] for home TPN. According to CM notes, son was trying to get additional insurance to assist with 20% co-pay for [facility] for TPN. Unsure as to why patient did not receive TPN over past 7 days as it was ordered prior to discharge. Family transported patient to [facility] ED today. Pt is emaciated, with pallor. Alert to name only. Lethargic. HCP is son, Kevin ([phone]). Not on file. Lives with daughter. According to Provider, son states no clear determination for hospice. On last admission, [facility] and [facility] do not care for TPN patients. Referral made to [facility], but no return call on last admission. CM will follow once work up completed.
[2023-04-01] MEDS: 0.9 % Sodium Chloride 1,000 ML 999 ML IV (20:48)
[2023-04-01 20:53] VITALS: BP 112/74; PULSE 89; RESP 9
--- NOTE | 2023-04-01 21:02 | PC.NURSE ---
Pt medicated per may. Plan of care ongoing.
[2023-04-01] MEDS: diazePAM 10 MG/2 ML CARTRIDGE 2.5 MG IVPUSH (22:41)
[2023-04-01] MEDS: Morphine Sulfate 2 MG/ML CARTRIDGE IVPUSH (22:41)
--- NOTE | 2023-04-01 22:46 | PC.NURSE ---
Pt medicated per may. Plan of care ongoing.
[2023-04-01 23:34] VITALS: BP 141/78; PULSE 87; RESP 11; O2SAT 93
[2023-04-02] VITALS (8 sets, daily range): BP systolic 70–99; BP diastolic 36–59; PULSE 88–101; RESP 15–20; TEMP 36–36.6; O2SAT 93–100; BMI 17.3
--- NOTE | 2023-04-02 01:29 | PM.IMHP ---
History of Present Illness Date of Service: 04/02/23 Attending physician on admission: Maryjo Velazquez Chief Complaint: Nausea and vomiting Evelyn Marin is a 68 years old woman with past medical history significant for metastatic squamous cell carcinoma of cervix (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 Patient was recently discharged from this hospital after she was hospitalized with diagnosis of intractable nausea and vomiting with small bowel obstruction (surgical service did not recommend surgical intervention). It seems like her prognosis poor and was sent home to continue TPN (via PICC line; unfortunately, this was not facilitated) with VNA and medication to control her symptoms such as Reglan and morphine. The patient was also found to have C diff colitis and was treated with a course of vancomycin p.o. which resolved the diarrhea (sent home to complete 4 more days but it is unclear to me if she completed this course). HPI was obtained from chart review an emergency provider who I spoke with patient's son as the patient is currently quite sedated after receiving treatment with Valium and opiates. MOLST form indicates patient is DNR and DNI with no hospitalization however son changed his mind and would like patient to be hospitalized for further treatment. Oncology Service suggested hospice care at this stage as there is no plan for chemotherapy -due to patient's weight loss and deconditioning. The plan was for the patient and the family to have hospice discussion with VNA after discharge. Patient is sedated but unable to answers simple questions. She stated she has abdominal pain and nausea. In the ED, she was found to have stable vital signs. Blood workup is remarkable for leukocytosis of 18.7. There is hyponatremia, 132 and CO2 is elevated. Creatinine is 1.79 (it was 0.53). Troponin is elevated, 37.7. Abdominal pelvis CT scan w/o IV contrast was obtained and showed prominent fluid distention of the stomach and small bowel (similar to slightly less prominent than prior -residual this is a small-bowel obstruction versus ileus), regions of predominantly ground-glass opacity at the lung bases (aspiration or infectious/inflammatory etiology) + redemonstrated findings calcified right adrenal mass. ED tx: NS 1 L bolus, Zofran 8 mg IV, morphine 2 mg IV, Valium 2.5 mg IV, Zosyn 3.375 g IV. Review of Systems Review of Systems: Unable to obtain. Neurologic: Reports confusion Psychiatric: Psychiatric: Reports confusion [facility] Medical History Delayed gastric emptying Squamous cell carcinoma of cervix Complex regional pain syndrome i of lower limb, bilateral Anxiety with depression Chronic pain syndrome Osteoporosis Cervical cancer Opiate abuse, episodic Osteoarthritis of both knees Primary osteoarthritis of knees, bilateral Seropositive rheumatoid arthritis Back pain Family History Father Acute CVA (cerebrovascular accident) Mother Hypertension Hypercholesterolemia Brother Liver transplant status Family history of thyroid problem Surgical History History of D&C History of tonsillectomy History of appendectomy History of cholecystectomy Social History Household Members: Family Housing: House Are you a primary vision care associate to a significant other at home: Yes (mom) Do you presently have visiting nurse or other home services: Yes Alcohol intake: never Comment: refused bed alarm Patient Tobacco Use Status: Former Tobacco user Quit Date: 2016 Tobacco use type: Cigarette e-Cigarette/Vaping Use: Never Used Second Hand Smoke Exposure: No Substance Use Type: Prescription Drugs Advance Directives: Yes Advance Directives on File: Yes Advance Directives Date on File: 03/15/23 service: No 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 Cognitive needs: No Hearing needs: No Vision needs: No Meds Allergies Allergy/AdvReac Type Severity Reaction Status Date / Time buprenorphine [Belbuca] Allergy Intermediate Anaphylaxis Verified 02/20/23 09:29 Active Medications: Current Medications Acetaminophen (Acetaminophen Supp 650 Mg Supp.Rect) 650 mg ND Q6H PRN PRN Reason: Fever Heparin Sodium (Porcine) (Heparin Sodium,Porcine 5,000 Unit/Ml Vial) 5,000 unit SUBCUT Q12H [facility] Hydromorphone HCl (Hydromorphone Hcl 0.5 Mg/0.5 Ml Syringe) 0.5 mg IVPUSH Q3H PRN; Protocol PRN Reason: Pain, Severe (Pain Scale 7-10) Dextrose/Sodium Chloride (D5ns) 1,000 mls @ 100 mls/hr IVCONT .Q10H [facility] Piperacillin Sod/Tazobactam (Sod 3.375 gm/ Sodium Chloride) 50 mls @ 100 mls/hr IV Q8H [facility] Ondansetron HCl (Ondansetron Hcl 4 Mg/2 Ml Vial) 4 mg IVPUSH Q8H [facility] Pharmacy Consult (Consult Rx Parenteral Nutrition Ordering) 1 each MISCELLANE DAILY PRN PRN Reason: Consult order Prochlorperazine Edisylate (Prochlorperazine Edisylate 10 Mg/2 Ml Vial) 5 mg IV Q4H PRN PRN Reason: Nausea and Vomiting Sodium Chloride (0.9 % Sodium Chloride Flush 3 Ml Syringe) 3 ml IVFLUSH QSHIFT [facility] Home Medications Medication Instructions Recorded Confirmed Last Taken Type alendronate 70 mg tablet 70 mg PO QWEEK 02/02/23 03/14/23 Unknown History celecoxib 200 mg capsule 200 mg PO BID PRN pain 02/02/23 03/14/23 Unknown History ferrous sulfate 325 mg (65 mg 325 mg PO BID 02/02/23 03/14/23 Unknown History iron) tablet prednisone 5 mg tablet 5 mg PO BID 02/02/23 03/14/23 Unknown History sertraline 50 mg tablet 50 mg PO DAILY 02/02/23 03/14/23 Unknown History docusate sodium 100 mg capsule 100 mg PO BID 03/14/23 03/14/23 Unknown History gabapentin 300 mg capsule 300 mg PO BID@0900,1200 03/14/23 03/14/23 Unknown History magnesium oxide 400 mg PO DAILY 03/14/23 03/14/23 Unknown History pantoprazole 40 mg tablet,delayed 40 mg PO DAILY 03/14/23 03/14/23 Unknown History release polyethylene glycol 3350 17 gram 17 g PO DAILY 03/14/23 03/14/23 Unknown History oral powder packet sennosides 8.6 mg tablet (senna) 17.2 mg PO BEDTIME PRN Constipation 03/14/23 03/14/23 Unknown History Physical Exam Vital Signs and Narrative: Vital Signs: Last Vital Signs Temp 96.2 F L 04/01/23 16:23 Pulse 87 04/01/23 23:34 Resp 11 L 04/01/23 23:34 BP 141/78 H 04/01/23 23:34 Pulse Ox 93 04/01/23 23:34 O2 Del Method Room Air 04/01/23 23:34 BMI result Body Mass Index 17.3 Const: General: confusion, ill appearing and lethargic Nutritional Appearance: cachectic, malnourished and thin Orientation/consciousness: oriented to person, confusion and lethargic Limitations: altered mental status HEENT: Head: Yes normocephalic and Yes atraumatic Eyes: Conjunctivae: conjunctivae normal Sclerae: sclerae normal Pupils: Equal, round and reactive pupils present Resp: Effort & Inspection: no audible wheezes, decreased respiratory effort, not labored, no respiratory distress and no use of accessory muscles Auscultation: no wheezes and diminished lung sounds bilateral in the lower lung aguilar Cardio: Jugular venous distension: no JVD Rate: regular rate Rhythm: regular rhythm Heart sounds: no murmurs GI: Palpation (GI): Firmness to palpation present (GI) and Tenderness to palpation present (GI) Auscultation: Absent bowel sounds Rectal Exam - Female: deferred Skin: General skin exam: dry skin Neuro: General: oriented to person and confusion Cranial nerves: Yes Equal, round and reactive pupils present Speech: Other speech findings present (Neuro) (Unable to communicate well) Psych: Appearance: other Speech and movement: Slowed movement present (Neuro) and Other speech and movement exam findings present (Psych) (Speech is very soft ) Results Labs 04/01/23 19:59 04/01/23 19:59 Labs: Laboratory Results - last 24 hr 04/01/23 19:59 MCV 82.4 MCH 28.2 MCHC 34.2 RDW 17.4 H Plt Count 349 MPV 8.8 L Immature Gran % (Auto) 0.9 H Neut % (Auto) 90.0 H Lymph % (Auto) 6.4 L [place] % (Auto) 2.4 Eos % (Auto) 0.0 Baso % (Auto) 0.3 Lymph # (Auto) 1.2 [place] # (Auto) 0.5 Eos # (Auto) 0.0 Baso # (Auto) 0.1 Abs Immat Gran (auto) 0.16 H Absolute Neuts (auto) 16.8 H Absolute Nucleated RBC 0.000 Nucleated RBC % (auto) 0.0 Anion Gap 21 H Estim Creat Clear Calc 23.0 Estimated GFR 28 Random Glucose 126 H Calcium 10.5 H D Magnesium 2.0 Total Bilirubin 0.4 Direct Bilirubin 0.2 AST 41 H ALT 35 H Alkaline Phosphatase 232 H Total Protein 6.5 Albumin 3.0 L Imaging Radiologist's Impressions: Impressions Chest X-Ray 04/01/23 21:09 IMPRESSION: Unremarkable chest exam. Abdomen/Pelvis CT 04/01/23 23:15 IMPRESSION: 1. Prominent fluid distention of the stomach and small bowel, overall similar to slightly less prominent compared to 03/15/2023. Appearance could be reflective of a degree of residual distal small bowel obstruction versus ileus. Intraluminal contrast material remains present throughout the colon without disproportionate dilation. The distal sigmoid colon and rectum appear collapsed; it is difficult to determine whether prominent soft tissue surrounding the intraluminal contrast is due to colonic wall thickening or malignant thickening related to the reported history of cervical neoplasm. 2. Regions of predominantly groundglass opacity at the lung bases, greatest in the lower lobes, which could be due to aspiration or an infectious/inflammatory etiology. 3. Additional redemonstrated findings as noted above, including coarsely calcified right adrenal mass. Head CT 04/01/23 23:15 IMPRESSION: No acute intracranial pathology. Assessment and Plan (1) Aspiration pneumonia: Qualifiers: Aspiration pneumonia type: due to vomit Laterality: unspecified laterality Lung location: unspecified part of lung Qualified Code(s): J69.0 - Pneumonitis due to inhalation of food and vomit Status: Acute (2) SBO (small bowel obstruction): Status: Acute (3) Nausea & vomiting: Qualifiers: Vomiting type: bilious vomiting Qualified Code(s): R11.14 - Bilious vomiting Status: Acute Plan Evelyn Marin is a 68 years old woman with metastatic CA of the cervix which is currently untreatable admitted with: Aspiration pneumonia. Admit to hospitalist service. Keep NPO. Aspiration precautions. Telemetry. Pulse oximetry. Supplemental oxygen as needed. Continue empiric IV therapy with Zosyn. Hypotension and hypoxia; likely secondary to volume depletion due to persistent vomiting and aspiration, respectively. In the interim of this hospitalization patient started to develop further multiple events of greenish vomiting. At 3 a.m. I was contacted to notify patient's blood pressure dropped to 85/50 as well as the oxygen saturation, 85%. I tried to insert a NG tube in order to avoid further events of vomiting but patient refused. 1 L of normal saline was ordered stat and supplemental oxygen was applied. We will continue supportive therapy for this patient. According to MOLST form, she is DNR and DNI. Of note, patient has a very poor prognosis due to her advanced cancer and overall nutritional state. Heroic measures and invasive interventions such as intubation we will not change the outcome and will likely prolonged Zofran. Nausea and vomiting + abdominal pain: Ileus versus small-bowel obstruction. Keep NPO. Start IV fluids. Pain control with Dilaudid as needed. Hyponatremia secondary to poor p.o. intake and vomiting. Continue IV fluids. Continue to monitor sodium level. Leukocytosis likely multifactorial: Vomiting, dehydration, active cancer, pain an active infection. Continue to monitor WBC. Acute kidney injury likely multifactorial: Poor p.o. intake and vomiting. Start IV fluids. Continue to monitor renal function. Avoid nephrotoxic agents. Encephalopathy likely secondary to medications/sedative in the setting of acute kidney injury and active infection. Aspiration precautions. Elevated LFTs. Likely due to metastatic cancer. Elevated troponin. Possible demand ischemia. Continue to monitor troponin. Severe malnutrition, BMI 17.3 kg/m2. Start TPN. Chronic pain related to metastatic cancer. Pain control. DVT prophylaxis: Heparin subQ Code status: DNR/DNI (MOLST form) Patient will need hospitalization for at least 2 midnights for aspiration pneumonia treatment with IV antibiotics + supplemental oxygen; and supportive measures with IV fluids, antiemetic and pain medications. Of note, I have tried to contact patient's son to update him about patient's current situation but the phone was not answered. Quality Stroke Does the patient have a stroke diagnosis?: No VTE Prior VTE?: No VTE Risk Level:: Medical - moderate - high VTE Device Contraindication: N/A - Device Ordered VTE Drug Contraindication: N/A - Med Ordered
[2023-04-02 02:39] LABS: Lactic Acid 1.1 mmol/L (0.5-2.0)
[2023-04-02] MEDS: Piperacillin Sodium/Tazobactam 3.375 GM in 0.9 % Sodium Chloride 50 ML IV ×4 (02:42→21:54)
[2023-04-02 02:45] LABS: COVID-19 Test Negative (Negative); IDNOW Serial# 08D9AD1C; IDNOW Serial# 152EDE1D; Influenza A Negative (Negative); Influenza B2 Negative (Negative)
[2023-04-02] MEDS: Dextrose 5 % and 0.9 % NaCl 1,000 ML 100 ML IVCONT (02:50)
--- NOTE | 2023-04-02 02:59 | PC.NURSE ---
Pt b/p 83/44. Provider pamela notified. Provider aware of 02. Plan of care ongoing.
[2023-04-02] MEDS: ondansetron HCL 4 MG/2 ML VIAL IVPUSH ×3 (03:23→21:53)
--- NOTE | 2023-04-02 03:33 | PC.NURSE ---
Pt vomiting. Hospitalist attempted to place NG tube pt refusing. Pt desat down to the 70's hospitalist placed pt on 3L non rebreather. Pt medicated per mar with kevin Hospitalist to reach out to pts son. Plan of care ongoing.
[2023-04-02] MEDS: 0.9 % Sodium Chloride 1,000 ML 999 ML IV ×4 (03:44→21:58)
--- NOTE | 2023-04-02 03:46 | PC.NURSE ---
Per hospitalist dextrose infusion stopped and NS bolus started. Plan of care ongoing.
[2023-04-02 04:47] LABS: Basophils Percent Auto 0.1 % (0-2); Eosinophils Percent Auto 0.1 % (0-4); Hematocrit 25.2 % (37.0-47.0); Hemoglobin 8.5 g/dl (12.0-16.0); Imm Gran Abs Auto 0.04 X10*3/uL (0.00-0.03); Imm Gran Pct Auto 0.5 % (0.0-0.4); Lymphocytes Absolute Auto 0.5 X10*3/uL (1.2-4.9); Lymphocytes Percent Auto 6.5 % (20-40); Mean Corpuscular HGB Conc 33.7 g/dl (31.0-35.0); Mean Corpuscular Hemoglobin 28.8 pg (27.0-33.0); Mean Corpuscular Volume 85.4 fL (80.0-98.0); Mean Platelet Volume 9.7 fL (9.4-12.3); Monocytes Absolute Auto 0.2 X10*3/uL (0.1-1.2); Monocytes Percent Auto 2.6 % (2-11); Neutrophils Absolute Auto 6.9 x10*3/uL (2.0-8.3); Neutrophils Percent Auto 90.2 % (45-73); Platelet Count 200 X10*3/uL (160-400); Red Blood Count 2.95 X10*6/uL (4.20-5.50); Red Cell Distribution Width 17.2 % (11.0-16.0); SCAN SMEAR FLAG 1; White Blood Count 7.7 X10*3/uL (4.8-10.8)
[2023-04-02 04:48] LABS: MANUAL DIFF FLAG SCAN
--- NOTE | 2023-04-02 04:59 | PC.NURSE ---
Pts bedding changed. Pt cleaned and gown changed. Pt requested and given clean blanket. Provider notified of pts bp 76/48. plan of care ongoing.
[2023-04-02 05:06] LABS: Troponin-I High Sensitivity 28.4 ng/L (<3.5-17.0)
[2023-04-02 05:09] LABS: Alanine Aminotransferase 23 U/L (0-31); Albumin Level 1.9 g/dL (3.5-5.0); Alkaline Phosphatase 135 U/L (39-117); Anion Gap 12 (12-20); Aspartate Amino Transferase 31 U/L (5-31); Bilirubin Total 0.3 mg/dL (0.0-1.0); Blood Urea Nitrogen 25 mg/dL (9-16); Calcium 6.9 mg/dL (8.4-10.2); Carbon Dioxide 26 mmol/L (22-29); Chloride 102 mmol/L (96-108); Creatinine Clr Calc Pharmacy 31.4; Estimated Glomerular Filt Rate 41; Glucose Random 87 mg/dL (60-115); Magnesium 1.2 mg/dL (1.6-2.6); Potassium 2.4 mmol/L (3.3-5.1); Sodium 138 mmol/L (135-145); Total Protein 4.1 g/dL (6.5-8.0)
[2023-04-02 05:14] LABS: SLIDE REVIEW VERIFIED
[2023-04-02] MEDS: Magnesium Sulfate/H2O 2 GM/50 ML PIGGYBACK IV (05:34)
--- NOTE | 2023-04-02 05:36 | PC.NURSE ---
Pt medicated per may. Pt alert and responding questions appropriately. Plan of care ongoing.
--- NOTE | 2023-04-02 06:40 | PC.NURSE ---
[employer] not given d/t Mag still running. Plan of care ongoing.
--- NOTE | 2023-04-02 08:04 | P.PNIM_ITS ---
Subjective Subjective Date of Service: 04/02/23 Interval History: feeling very unwell Physical Exam 2 Vital Signs: Vital Signs: Last Vital Signs Temp 96.2 F L 04/01/23 16:23 Pulse 97 04/02/23 05:37 Resp 16 04/02/23 05:37 BP 99/57 L 04/02/23 05:37 Pulse Ox 93 04/02/23 05:37 O2 Del Method Room Air 04/02/23 05:37 BMI result Body Mass Index 17.3 lethargic, oriented times 3, very frail and ill appearing, cachexic, non conversational, occasionally answers questions appropriately then nods off abd mildly distended, non tender, lungs with poor air movement Objective Data Active Medications Acetaminophen (Acetaminophen Supp 650 Mg Supp.Rect) 650 mg GA Q6H PRN PRN Reason: Fever Heparin Sodium (Porcine) (Heparin Sodium,Porcine 5,000 Unit/Ml Vial) 5,000 unit SUBCUT Q12H [facility] Hydromorphone HCl (Hydromorphone Hcl 0.5 Mg/0.5 Ml Syringe) 0.5 mg IVPUSH Q3H PRN; Protocol PRN Reason: Pain, Severe (Pain Scale 7-10) Piperacillin Sod/Tazobactam (Sod 3.375 gm/ Sodium Chloride) 50 mls @ 100 mls/hr IV Q6H [facility] Potassium Chloride/Sodium Chloride (Kcl 40 Meq In 0.9 % Sodium Chl) 40 meq in 1,000 mls @ 150 mls/hr IVCONT .Q6H40M [facility] Stop: 04/02/23 09:29 Ondansetron HCl (Ondansetron Hcl 4 Mg/2 Ml Vial) 4 mg IVPUSH Q8H [facility] Last Admin: 04/02/23 03:23 Dose: 4 mg Documented By: JUANA Pharmacy Consult (Consult Rx Parenteral Nutrition Ordering) 1 each MISCELLANE DAILY PRN PRN Reason: Consult order Prochlorperazine Edisylate (Prochlorperazine Edisylate 10 Mg/2 Ml Vial) 5 mg IV Q4H PRN PRN Reason: Nausea and Vomiting Sodium Chloride (0.9 % Sodium Chloride Flush 3 Ml Syringe) 3 ml IVFLUSH QSHIFT [facility] Labs 04/02/23 04:41 04/02/23 04:41 Labs: Laboratory Results - last 24 hr 04/01/23 04/02/23 04/02/23 19:59 02:22 02:24 MCV 82.4 MCH 28.2 MCHC 34.2 RDW 17.4 H Plt Count 349 MPV 8.8 L Immature Gran % (Auto) 0.9 H Neut % (Auto) 90.0 H Lymph % (Auto) 6.4 L [place] % (Auto) 2.4 Eos % (Auto) 0.0 Baso % (Auto) 0.3 Lymph # (Auto) 1.2 [place] # (Auto) 0.5 Eos # (Auto) 0.0 Baso # (Auto) 0.1 Abs Immat Gran (auto) 0.16 H Absolute Neuts (auto) 16.8 H Absolute Nucleated RBC 0.000 Nucleated RBC % (auto) 0.0 Smear Tech's Comments Anion Gap 21 H Estim Creat Clear Calc 23.0 Estimated GFR 28 Random Glucose 126 H Lactic Acid 1.1 Calcium 10.5 H D Phosphorus Magnesium 2.0 Total Bilirubin 0.4 Direct Bilirubin 0.2 AST 41 H ALT 35 H Alkaline Phosphatase 232 H Total Protein 6.5 Albumin 3.0 L COVID-19 (EDDIE) Negative COVID-19 Clin Com See Note Influenza Type A (SAVAGE) Negative Influenza Type B (SAVAGE) Negative Influenza A & B Note See Note 04/02/23 04:41 MCV 85.4 MCH 28.8 MCHC 33.7 RDW 17.2 H Plt Count 200 D MPV 9.7 Immature Gran % (Auto) 0.5 H Neut % (Auto) 90.2 H Lymph % (Auto) 6.5 L [place] % (Auto) 2.6 Eos % (Auto) 0.1 Baso % (Auto) 0.1 Lymph # (Auto) 0.5 L [place] # (Auto) 0.2 Eos # (Auto) 0.0 Baso # (Auto) 0.0 Abs Immat Gran (auto) 0.04 H Absolute Neuts (auto) 6.9 Absolute Nucleated RBC 0.000 Nucleated RBC % (auto) 0.0 Smear Tech's Comments VERIFIED Anion Gap 12 Estim Creat Clear Calc 31.4 Estimated GFR 41 Random Glucose 87 Lactic Acid 1.0 Calcium 6.9 L D Phosphorus 3.0 Magnesium 1.2 L* Total Bilirubin 0.3 Direct Bilirubin AST 31 ALT 23 Alkaline Phosphatase 135 H Total Protein 4.1 L Albumin 1.9 L COVID-19 (EDDIE) COVID-19 Clin Com Influenza Type A (SAVAGE) Influenza Type B (SAVAGE) Influenza A & B Note Assessment and Plan (1) Ileus: Status: Acute Plan 68F PMH metastatic cervical CA with presumed peritoneal carcinomatosis, opiate dependence, mood disorder, presented with n/v, found to be hypoxic, ileus, allen and severe hypokalemia, hypomagnesemia acute hypoxic respiratory failure due to aspiration (of bilous vomiting) pneumonia zosyn, o2 hypotension due to dehydration from vomiting, not sepsis metastatic cervical cancer c/b ileus unsuccessful with NGT, not interested in trying further, continue ivf, npo severe hypokalemia, severe hypomagnesemia replace and monitor Severe protein calorie malnutrition due to above grave prognosis DNR/DNI - d/w, hcp - current goal would be to continue conservative care with goal of stabilizing patient enough to be able to discharge home for end of life care reason for continued hospitalization:hypotension, severe elctrolyte abnormailities, hypoxia Quality Stroke Does the patient have a stroke diagnosis?: No VTE Prior VTE?: No VTE Risk Level:: Medical - moderate - high VTE Device Contraindication: N/A - Device Ordered VTE Drug Contraindication: N/A - Med Ordered
[2023-04-02] MEDS: KCl 40 mEq in 0.9 % Sodium Chl 40 MEQ/1,000 ML IV.SOLN 150 MEQ IVCONT (08:14)
--- NOTE | 2023-04-02 08:21 | PC.NURSE ---
Patient alert but appears very weak, pale. Warm and dry. Patient vomiting intermittently, dark green bile. Head of bed elevated. Pt denies pain at this time, NSR on monitor. PICC line to right AC flushing with +blood return. Dr Flores to bedside for assessment as pt weak and lethargic. Plan to discuss PHYSICAL THERAPY ASSISTANT status with family. K 40mEQ started as ordered. Pt hypotensive, sat 90-96% on 6lpm, no resp distress noted. Pt at times resistive with care but reassurance provided with good effect
--- NOTE | 2023-04-02 09:23 | MHC.CM.PN ---
CM ATTEMPTED TO MEET W/PT HOWEVER PT NOT YET ON UNIT, CM WILL REVISIT. PER CM FROM PT'S ADMISSION LAST WEEK ON S3, PT'S VNA JOSE DROPPED PT THEY COULD NOT FIND HER TPN WHICH WAS IN BASEMENT, PER [facility] SAID THEY WOULD REVIEW, REFERRAL PLACED.
--- NOTE | 2023-04-02 10:26 | MHC.CLN ---
PT IS SEVERELY MALNOURISHED PT WITH MODERATELY DEPLETED SUBCUTANEOUS FAT AND MUSCLE MASS, BMI 17.3 WITH 28% SIGNIFICANT WT LOSS X 1 YEAR WITH CHRONIC POOR PO INTAKE AND MOST RECENTLY NO TPN X 7 DAYS. PT DEPENDENT ON TPN FOR NUTRITION SUPPORT. PT FAMILIAR FROM RECENT ADMISSION CURRENTLY NPO MD TO START TPN; DISCUSSED WITH PHARMACY RECOMMEND TPN AT 30ML/HR TO PROVIDE 511KCALS, 108G DEXTROSE, 31G PROTEIN PT IS AT RISK FOR RE-FEEDING R/T NO FORM OF NUTRITION X 7 DAYS REPLETE LYTES NEEDED; MONITOR K+, MG AND PHOS CLOSELY SEE ALSO FULL CLINICAL NUTRITION ASSESSMENT
[2023-04-02 13:05] LABS: Troponin-I High Sensitivity 21.6 ng/L (<3.5-17.0)
--- NOTE | 2023-04-02 14:32 | MHC.CM.PN ---
CM met with Patient and several family members at bedside, including Son/HCP/Kevin(CM has asked Kevin to bring in a copy of the HCP). CM addressed IMM with Kevin and provided him with the original, while a copy has been placed on the chart. Patient lives with her Daughter and appears to have strong family support. Kevin and family are agreeable to a Hospice Informational and a referral has been made to [facility] ([facility] was unable to accommodate per referral made to them).PCP is Dr. Dean Villalba.CM will follow.
[2023-04-02 15:24] LABS: Anion Gap 17 (12-20); Blood Urea Nitrogen 31 mg/dL (9-16); Calcium 9.7 mg/dL (8.4-10.2); Carbon Dioxide 25 mmol/L (22-29); Chloride 95 mmol/L (96-108); Creatinine Clr Calc Pharmacy 21.8; Estimated Glomerular Filt Rate 27; Glucose Random 78 mg/dL (60-115); Magnesium 2.4 mg/dL (1.6-2.6); Phosphorus 3.6 mg/dL (2.7-4.5); Potassium 4.4 mmol/L (3.3-5.1); Sodium 133 mmol/L (135-145); Triglycerides 152 mg/dL (<150)
--- NOTE | 2023-04-02 15:29 | MHC.CM.PN ---
Per [facility], METAL WELDER is on her way to conduct the Hospice Informational. CM will follow.
[2023-04-02 15:31] LABS: Troponin-I High Sensitivity 28.3 ng/L (<3.5-17.0)
[2023-04-02] MEDS: Morphine Sulfate 2 MG/ML CARTRIDGE 1 MG IVPUSH ×2 (15:43→18:56)
[2023-04-02 15:58] LABS: Hematocrit 33.1 % (37.0-47.0); Hemoglobin 10.7 g/dl (12.0-16.0); Mean Corpuscular HGB Conc 32.3 g/dl (31.0-35.0); Mean Corpuscular Hemoglobin 27.9 pg (27.0-33.0); Mean Corpuscular Volume 86.2 fL (80.0-98.0); Mean Platelet Volume 9.7 fL (9.4-12.3); Platelet Count 255 X10*3/uL (160-400); Red Blood Count 3.84 X10*6/uL (4.20-5.50); Red Cell Distribution Width 17.7 % (11.0-16.0); WBC ABN SCTR FOR CBC 1; White Blood Count 7.1 X10*3/uL (4.8-10.8)
[2023-04-02] MEDS: Prochlorperazine Edisylate 10 MG/2 ML VIAL 5 MG IV (17:39)
[2023-04-02] MEDS: 0.9 % Sodium Chloride Flush 3 ML SYRINGE IVFLUSH (17:40)
--- NOTE | 2023-04-02 19:39 | HO.SKINPHOTO ---
Location: coccyx Category: Stage: Length: Width: Depth: cm Location: Category: Stage: Length: Width: Depth: cm Location: Category: Stage: Length: Width: Depth: cm Location: Category: Stage: Length: Width: Depth: cm Location: Category: Stage: Length: Width: Depth: cm Location: Category: Stage: Length: Width: Depth: cm
[2023-04-03] VITALS (8 sets, daily range): BP systolic 67–104; BP diastolic 42–60; PULSE 85–110; RESP 17–20; TEMP 36.1–36.8; O2SAT 90–98
[2023-04-03] MEDS: Parenteral Nutrition 720 ML 30 ML IV (00:30)
[2023-04-03] MEDS: Morphine Sulfate 2 MG/ML CARTRIDGE 1 MG IVPUSH ×2 (04:01→07:29)
[2023-04-03] MEDS: 0.9 % Sodium Chloride 500 ML IV (04:10)
[2023-04-03] MEDS: Piperacillin Sodium/Tazobactam 3.375 GM in 0.9 % Sodium Chloride 50 ML IV ×4 (04:10→21:31)
[2023-04-03] MEDS: ondansetron HCL 4 MG/2 ML VIAL IVPUSH ×3 (04:11→21:05)
[2023-04-03 06:52] LABS: Hematocrit 26.9 % (37.0-47.0); Mean Corpuscular HGB Conc 33.5 g/dl (31.0-35.0); Mean Corpuscular Hemoglobin 28.7 pg (27.0-33.0); Mean Corpuscular Volume 85.7 fL (80.0-98.0); Mean Platelet Volume 9.5 fL (9.4-12.3); Platelet Count 167 X10*3/uL (160-400); Red Blood Count 3.14 X10*6/uL (4.20-5.50); Red Cell Distribution Width 17.6 % (11.0-16.0); White Blood Count 8.3 X10*3/uL (4.8-10.8)
[2023-04-03 07:07] LABS: Alanine Aminotransferase 25 U/L (0-31); Albumin Level 2.1 g/dL (3.5-5.0); Alkaline Phosphatase 126 U/L (39-117); Anion Gap 16 (12-20); Aspartate Amino Transferase 36 U/L (5-31); Bilirubin Direct 0.3 mg/dL (0.0-0.5); Bilirubin Total 0.4 mg/dL (0.0-1.0); Blood Urea Nitrogen 35 mg/dL (9-16); Calcium 8.9 mg/dL (8.4-10.2); Carbon Dioxide 22 mmol/L (22-29); Chloride 104 mmol/L (96-108); Creatinine Clr Calc Pharmacy 24.9; Estimated Glomerular Filt Rate 31; Glucose Fasting 82 mg/dL (60-99); Glucose Random 83 mg/dL (60-115); Magnesium 2.1 mg/dL (1.6-2.6); Phosphorus 2.6 mg/dL (2.7-4.5); Potassium 3.8 mmol/L (3.3-5.1); Sodium 138 mmol/L (135-145); Total Protein 4.7 g/dL (6.5-8.0)
[2023-04-03] MEDS: 0.9 % Sodium Chloride Flush 3 ML SYRINGE IVFLUSH ×2 (08:18→15:11)
--- NOTE | 2023-04-03 08:18 | PC.NURSE ---
pt drowsy, responds to voice/touch but pt resistant to rousing and family states she finally got comfortable after being agitated. BP's low 60's-70's systolic, Family at bedside aware and MD Wilmer Velazquez made immediately aware. MD down to see pt. Total 2500cc IV fluids given with little to no response. discussed with family/MD at length that pt's plan was home with hospice. son Joon wishes TPN to be mainained as well as antibiotics. The family also stresses wanting to keep patient comfortable and that pt is a DNR/DNI. Pt woke this AM and was alert and oriented x3. She asked directly for pain meds and stated the pain in her chest was getting worse. Clarified with MD javed bp continuing in the 60's systolic/ manual and pt in agreement to give IV morphine meds. Pt tolerated well and was able to sit up with family looking though videos/pictures of her grandkids and family. Family offered Gasoline Plant Operator services and liberalized visitation. Plan of care ongoing.....
[2023-04-03] MEDS: 0.9 % Sodium Chloride 1,000 ML 999 ML IV (08:34)
--- NOTE | 2023-04-03 08:56 | MHC.CM.PN ---
EMR REVIEWED, PER [facility] SW FAMILY WOULD LIKE TO WAIT AND SEE IF PT IMPROVES AND ARE STILL INTERESTED IN HAVING A TRIAL OF TPN, HOSPICE WILLING TO ACCEPT IF FAMILY DECIDES. CM TO CONTACT PT'S PREVIOUS VNA JOSE TO DETERMINE WHAT THERE CONCERNS ARE REGARDING ANY ISSUES WITHIN THE HOME CM WAS TOLD BY [facility] LIAISON THAT JOSE WILL NO LONGER PROVIDE SERVICES FOR PT.
--- NOTE | 2023-04-03 09:57 | HO.PM.IMPN ---
Subjective Subjective Date of Service: 04/03/23 Interval History: Seen and evaluated Family at bedside complajning of abd pain but less nausea on TPN Review of Systems Review of Systems: Yes all other systems are reviewed and are negative Physical Exam Vital Signs: Vital Signs: Last Vital Signs Temp 98.1 F 04/03/23 07:47 Pulse 96 04/03/23 07:47 Resp 20 04/03/23 07:47 BP 73/43 L 04/03/23 07:47 Pulse Ox 95 04/03/23 07:47 O2 Del Method Nasal Cannula 04/03/23 07:47 O2 Flow Rate 5 04/03/23 07:47 BMI result Body Mass Index 17.3 Const: Other: Constitutional : Awake, weak, frail, interactive, underweight, not in distress Neck : Normal inspection, Supple Cardiovascular : RRR, no JVP, no lower extremity edema Respiratory : good bilateral air entry, no crackles, wheezes or rhonchi Gastrointestinal: soft, lax, Normal bowel sounds, no significant tenderness with no surgical signs Skin : Warm, Dry, PICC line in place Neurological : Alert & oriented x3, No focal deficit Objective Data Active Medications Acetaminophen (Acetaminophen Supp 650 Mg Supp.Rect) 650 mg ND Q6H PRN PRN Reason: Fever Heparin Sodium (Porcine) (Heparin Sodium,Porcine 5,000 Unit/Ml Vial) 5,000 unit SUBCUT Q12H [facility] Last Admin: 04/03/23 08:17 Dose: Not Given Documented By: JOSE MARTIN Non-Admin Reason: Patient Refused Hydromorphone HCl (Hydromorphone Hcl 0.5 Mg/0.5 Ml Syringe) 0.5 mg IVPUSH Q3H PRN; Protocol PRN Reason: Pain, Severe (Pain Scale 7-10) Piperacillin Sod/Tazobactam (Sod 3.375 gm/ Sodium Chloride) 50 mls @ 100 mls/hr IV Q6H [facility] Last Infusion: 04/03/23 09:15 Dose: Infused Documented By: JOSE MARTIN Nutrition (Parenteral) (Parenteral Nutrition) 720 mls @ 30 mls/hr IV .Q24H [facility]; Protocol Stop: 04/03/23 20:59 Last Admin: 04/03/23 00:30 Dose: 30 mls/hr Documented By: CRISTIAN Methylprednisolone Sodium Succinate (Methylprednisolone Sod Succ 40 Mg/Ml Vial) 10 mg IVPUSH Q12H [facility] Ondansetron HCl (Ondansetron Hcl 4 Mg/2 Ml Vial) 4 mg IVPUSH Q8H [facility] Last Admin: 04/03/23 04:11 Dose: 4 mg Documented By: CRISTIAN Oxycodone HCl (Oxycodone Hcl Er 10 Mg Tab.Er.12h) 20 mg PO ONCE ONE Stop: 04/03/23 09:56 Pharmacy Consult (Consult Rx Parenteral Nutrition Ordering) 1 each MISCELLANE DAILY PRN PRN Reason: Consult order Prochlorperazine Edisylate (Prochlorperazine Edisylate 10 Mg/2 Ml Vial) 5 mg IV Q4H PRN PRN Reason: Nausea and Vomiting Last Admin: 04/02/23 17:39 Dose: 5 mg Documented By: JOSE MARTIN Sodium Chloride (0.9 % Sodium Chloride Flush 3 Ml Syringe) 3 ml IVFLUSH QSHIFT [facility] Last Admin: 04/03/23 08:18 Dose: 3 ml Documented By: JOSE MARTIN Labs 04/03/23 06:38 04/03/23 06:38 Labs: Laboratory Results - last 24 hr 04/02/23 04/02/23 04/02/23 12:31 12:31 12:31 MCV TNP MCH TNP MCHC TNP RDW TNP Plt Count TNP MPV TNP Absolute Nucleated RBC TNP Nucleated RBC % (auto) TNP Anion Gap Cancelled TNP Estim Creat Clear Calc Cancelled TNP Estimated GFR Cancelled Random Glucose Fasting Glucose Calcium Phosphorus Magnesium Total Bilirubin Direct Bilirubin AST ALT Alkaline Phosphatase Total Protein Albumin Triglycerides 04/02/23 04/02/23 04/02/23 12:31 12:31 12:31 MCV MCH MCHC RDW Plt Count MPV Absolute Nucleated RBC Nucleated RBC % (auto) Anion Gap Estim Creat Clear Calc Estimated GFR TNP Random Glucose Cancelled TNP Fasting Glucose Calcium Cancelled TNP Phosphorus Cancelled Magnesium Total Bilirubin Direct Bilirubin AST ALT Alkaline Phosphatase Total Protein Albumin Triglycerides 04/02/23 04/02/23 04/02/23 12:31 12:31 12:31 MCV MCH MCHC RDW Plt Count MPV Absolute Nucleated RBC Nucleated RBC % (auto) Anion Gap Estim Creat Clear Calc Estimated GFR Random Glucose Fasting Glucose Calcium Phosphorus TNP Magnesium Cancelled TNP Total Bilirubin Cancelled TNP Direct Bilirubin AST Cancelled ALT Alkaline Phosphatase Total Protein Albumin Triglycerides 04/02/23 04/02/23 04/02/23 12:31 12:31 12:31 MCV MCH MCHC RDW Plt Count MPV Absolute Nucleated RBC Nucleated RBC % (auto) Anion Gap Estim Creat Clear Calc Estimated GFR Random Glucose Fasting Glucose Calcium Phosphorus Magnesium Total Bilirubin Direct Bilirubin AST TNP ALT Cancelled TNP Alkaline Phosphatase Cancelled TNP Total Protein Cancelled Albumin Triglycerides 04/02/23 04/02/23 04/02/23 12:31 12:31 14:32 MCV MCH MCHC RDW Plt Count MPV Absolute Nucleated RBC Nucleated RBC % (auto) Anion Gap 17 Estim Creat Clear Calc 21.8 Estimated GFR 27 Random Glucose 78 Fasting Glucose Calcium 9.7 D Phosphorus 3.6 Magnesium 2.4 Total Bilirubin Direct Bilirubin AST ALT Alkaline Phosphatase Total Protein TNP Albumin Cancelled TNP Triglycerides TNP 152 H 04/02/23 04/03/23 14:50 06:38 MCV 86.2 85.7 MCH 27.9 28.7 MCHC 32.3 33.5 RDW 17.7 H 17.6 H Plt Count 255 D 167 D MPV 9.7 9.5 Absolute Nucleated RBC 0.000 0.000 Nucleated RBC % (auto) 0.0 0.0 Anion Gap 16 Estim Creat Clear Calc 24.9 Estimated GFR 31 Random Glucose 83 Fasting Glucose 82 Calcium 8.9 D Phosphorus 2.6 L Magnesium 2.1 Total Bilirubin 0.4 Direct Bilirubin 0.3 AST 36 H ALT 25 Alkaline Phosphatase 126 H Total Protein 4.7 L Albumin 2.1 L Triglycerides Microbiology Microbiology Results: Microbiology 04/02/23 04:41 Blood Culture - Preliminary Blood - Central Line No growth after 24 hours. 04/02/23 04:02 Blood Culture - Preliminary Blood - Central Line No growth after 24 hours. Assessment and Plan (1) SBO (small bowel obstruction): Status: Acute (2) Aspiration pneumonia: Status: Acute Plan 68F PMH metastatic cervical CA with presumed peritoneal carcinomatosis, opiate dependence, mood disorder, presented with n/v, found to be hypoxic, ileus, allen and severe hypokalemia, hypomagnesemia acute hypoxic respiratory failure due to aspiration (of bilous vomiting) pneumonia zosyn, o2 wean O2 down as tolerated hypotension due to dehydration from vomiting, not sepsis To give a Bolus of fluids metastatic cervical cancer c/b ileus unsuccessful with NGT, not interested in trying further DC IVF Continue TPN severe hypokalemia, severe hypomagnesemia replace and monitor Severe protein calorie malnutrition due to above, on TPN grave prognosis DNR/DNI - d/w, hcp - current goal would be to continue conservative care with goal of stabilizing patient enough to be able to discharge home for end of life care reason for continued hospitalization:hypotension, elctrolyte abnormailities, hypoxia Quality Stroke Does the patient have a stroke diagnosis?: No VTE Prior VTE?: No VTE Risk Level:: Medical - moderate - high VTE Device Contraindication: N/A - Device Ordered VTE Drug Contraindication: N/A - Med Ordered
[2023-04-03] MEDS: methylPREDNISolone Sod Succ 40 MG/ML VIAL 10 MG IVPUSH ×2 (10:31→21:05)
[2023-04-03] MEDS: oxyCODONE HCl ER 10 MG TAB.ER.12H 20 MG PO (10:31)
--- NOTE | 2023-04-03 10:59 | MHC.CLN ---
F/U PT IS SEVERELY MALNOURISHED PT DEPENDENT ON TPN FOR NUTRITION SUPPORT SEE FULL CLINICAL NUTRITION ASSESSMENT DATED 04/02/23 REMAINS NPO DISCUSSED WITH PHARMACY RECOMMEND INCREASING TPN AT 50ML/HR TO PROVIDE 852KCALS, 180G DEXTROSE, 60G PROTEIN REPLETE LYTES NEEDED; MONITOR K+, MG AND PHOS CLOSELY
[2023-04-03] MEDS: HYDROmorphone HCl 0.5 MG/0.5 ML SYRINGE IVPUSH ×4 (11:51→21:04)
[2023-04-03] MEDS: Digoxin 0.5 MG/2 ML AMPUL 0.25 MG IVPUSH (15:10)
--- NOTE | 2023-04-03 15:26 | MHC.CM.PN ---
CM CONTACTED JOSE GRAJEDA AND SPOKE W/CAPTAIN AIRLINE PILOT CHIQUI TO DISCUSS CONCERNS REGARDING PT BEING HOME, CHIQUI REPORTS THAT THE NURSE COULD NOT FIND THE TPN DELIVERY AND DTR AUREA DIDN'T KNOW WHERE IT WAS AND SON LALITHA WHOM THE NURSE HAD CONTACTED TO SET UP SOC FOR TPN AND [facility] HAD SPOKEN TO AND CONFIRMED HE WOULD BE THE PRIMARY PERSON TO ADMINISTER THE TPN NOT THERE AND DID NOT SHOW UP WHILE THE JOSE RN WAS THERE, CHIQUI ALSO REPORTED THAT PT WAS SOAKED IN URINE AND DTR AUREA WHO LIVES W/PT DID NOT SEEMED CONCERNED OR WILLING TO PROVIDE PERSONAL CARE FOR PT. HOSPITALIST AND CM DIRECTOR AWARE.
--- NOTE | 2023-04-03 15:50 | MHC.CM.PN ---
CM MET W/PT AD ASKED FAMILY SON LALITHA, SISTER AND CORETTA FOR PRIVACY, PT IS EVEN MORE ALERT TODAY AND SO CM ADDRESSED NEED FOR HCP, PT VERY CLEARLY STATED SHE WOULD LIKE HER SON NASIR TO BE HER HCA AND DECISION MAKER, PT WAS ALSO GOING TO PUT HER DTR AUREA ON HCP HOWEVER DISCUSSED W/SON WHO REMINDED PT THAT AUREA DID NOT FEEL COMFORTABLE BEING PT'S HCP, PT DID NOT CHOSE ANOTHER ALTERNATE AND HCP COMPLETED W/LALITHA LEGER (NUMBER ON FILE) HCA, PT PROVIDED W/EDUCATIONAL HANDOUT, ORIGINAL AND 2 COPIES, COPY PLACED IN CHART AND UPLOADED TO [facility]. OF NOTE WHEN SPEAKIN W/FAMILY PT'S SISTER REPORTED THAT PT HAD MH HOWEVER LALITHA REPORTS THAT IT AND WAS NOT RENEWED AND THAT HE HAD SPOKEN TO FS AND HAD A FOLDER WITH A STACK OF PAPERWORK FROM THEM, WHEN CM FOLLOWED UP W/FS THEY REPORTED SON CAME IN THIS MORNING AND WAS GIVEN DOCUMENTS, FS WILL FOLLOW UP CASE AND IF PT IS ALERT ENOUGH CAN SIGN FORM TO ALLOW FS TO SEE AND BETTER ASSIST W/THIS CASE.
[2023-04-03] MEDS: Prochlorperazine Edisylate 10 MG/2 ML VIAL 5 MG IV ×2 (16:48→23:06)
[2023-04-03] MEDS: Heparin Sodium,Porcine 5,000 UNIT/ML VIAL 5000 UNIT SUBCUT (21:05)
[2023-04-03] MEDS: Digoxin 0.5 MG/2 ML AMPUL 0.125 MG IVPUSH (21:07)
[2023-04-03] MEDS: Dextrose 5 % and 0.9 % NaCl 1,000 ML 80 ML IVCONT (21:45)
[2023-04-03] MEDS: HYDROmorphone HCl 1 MG/ML SYRINGE IVPUSH (23:05)
[2023-04-04] VITALS (8 sets, daily range): BP systolic 100–115; BP diastolic 57–69; PULSE 94–106; RESP 16–20; TEMP 36.3–36.6; O2SAT 93–99
[2023-04-04] MEDS: Prochlorperazine Edisylate 10 MG/2 ML VIAL 5 MG IV ×3 (02:27→14:16)
[2023-04-04] MEDS: HYDROmorphone HCl 1 MG/ML SYRINGE IVPUSH ×4 (02:27→09:44)
[2023-04-04] MEDS: Piperacillin Sodium/Tazobactam 3.375 GM in 0.9 % Sodium Chloride 50 ML IV ×2 (02:27→07:57)
[2023-04-04] MEDS: Digoxin 0.5 MG/2 ML AMPUL 0.125 MG IVPUSH ×2 (02:28→07:58)
--- NOTE | 2023-04-04 04:45 | PC.NURSE ---
Pt expresses desire to . No endorsement of SI or plan when asked explicitly. Charge, maintenance and custodian supervisor, MD notified. MD at bedside with patient discussing goals of care.
[2023-04-04] MEDS: Fluconazole in NaCl,Iso-Osm 400 MG/200 ML PIGGYBACK 100 MG IV (04:57)
[2023-04-04] MEDS: ondansetron HCL 4 MG/2 ML VIAL IVPUSH ×3 (05:24→21:13)
--- NOTE | 2023-04-04 06:23 | P.EN_ITS ---
Event Note Date of Service: 04/04/23 Event Note: 4:38 AM - contacted to inform patient is expressing comflicting statements about wanting to and and being killed . I was requested to be at bedside and assess capacity. Charge and real estate office supervisor were at bedside. Patient was laying in bed actively vomiting, awake and alert (first time since admission I see her significantly alert). She was requesting oxycodone. I told her that she is vomiting and has a bowel blockage and unfortunately, it cannot be given. I told her that we have to control her pain with IV meds which she has been receiving overnight. I actually increased the dose and decreased the frequency. I suggested to start her on dilaudid IV infusion. Patient told me she wants me to kill her. It is difficult for me to determine if she just means that I allow her to naturally because she has been suffering. Patient's son who was at bedside said she means to allow her to pass away naturally. Balance And Hairspring Assembler and I tried to explain to the patient that she is receiving IVFs/TPN (not currently because PICC line came out), antibiotics and now antifungal (blood culture positive for yeast); and that these interventions might prolong her life and suffering but, not necessarily these will change the inevitable. We ask her if she wants us to only provide comfort care which includes symptomatic therapy, no labs drawning or VS checks. She did not answer, instead she will ask to be repositioned in bed. Son seems to be a bit upset about us asking this and requested for Dr. Park to address this with patient in am. I feel patient might be experiencing confusional state due to her acute illness and sedatives. I will pass this information to Dr. Park to discuss comfort measures with the patient and son as per son and patient's wishes. Time Spent With Patient Time: Total time managing care of this patient today ____ minutes.
[2023-04-04] MEDS: 0.9 % Sodium Chloride Flush 3 ML SYRINGE IVFLUSH ×2 (07:59→14:26)
[2023-04-04] MEDS: methylPREDNISolone Sod Succ 40 MG/ML VIAL 10 MG IVPUSH (09:44)
--- NOTE | 2023-04-04 10:21 | MHC.CLN ---
Addendum entered by Nicky Painting, RD 04/04/23 10:45: DISCUSSED PLAN WITH MD CARRILLO INITIATED AND WILL BE FOCUSED CARE D/C TPN/PPN WILL FOLLOW WITH TEAM AND PROVIDE SUPPORT PRIMARY GOAL IS COMFORT Original Note: F/U PT IS SEVERELY MALNOURISHED PT DEPENDENT ON TPN FOR NUTRITION SUPPORT REMAINS NPO PT'S PICC LINE CAME OUT-CAN NOT RECEIVE TPN AT THIS TIME PENDING DISCUSSION WITH RE: ADVANCED DIRECTIVES-POSSIBLY PUNCH OPERATOR IF PPN NEEDED; RECOMMEND PPN AT 70ML/HR TO PROVIDE 857KCALS, 168G DEXTROSE, 71G PROTEIN (1.5G/KG) REPLETE LYTES NEEDED; MONITOR K+, MG AND PHOS CLOSELY FOLLOWING WITH TEAM AND WILL PROVIDE SUPPORT NEEDED
--- NOTE | 2023-04-04 10:48 | P.PNIM_ITS ---
Subjective Subjective Date of Service: 04/04/23 Interval History: Seen and evaluated this morning family at bedside had difficult night with pain and vomiting states that she wants to be comfortable and understands is imminent Review of Systems Review of Systems: Yes all other systems are reviewed and are negative Physical Exam 2 Vital Signs: Vital Signs: Last Vital Signs Temp 97.4 F 04/04/23 07:08 Pulse 94 04/04/23 07:08 Resp 17 04/04/23 09:44 BP 115/69 04/04/23 07:08 Pulse Ox 93 04/04/23 07:08 O2 Del Method Room Air 04/04/23 07:08 O2 Flow Rate 5 04/04/23 02:58 BMI result Body Mass Index 17.3 Const: 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: UNDERWATER HUNTER TRAPPER Objective Data Active Medications Acetaminophen (Acetaminophen Supp 650 Mg Supp.Rect) 650 mg CA Q6H PRN PRN Reason: Fever Heparin Sodium (Porcine) (Heparin Sodium,Porcine 5,000 Unit/Ml Vial) 5,000 unit SUBCUT Q12H [facility] Last Admin: 04/04/23 07:59 Dose: Not Given Documented By: ANABELLE Non-Admin Reason: Patient Refused Hydromorphone HCl (Hydromorphone Hcl 1 Mg/Ml Syringe) 1 mg IVPUSH Q2H PRN; Protocol PRN Reason: Pain, Severe (Pain Scale 7-10) Last Admin: 04/04/23 07:59 Dose: 1 mg Documented By: ANABELLE Piperacillin Sod/Tazobactam (Sod 3.375 gm/ Sodium Chloride) 50 mls @ 100 mls/hr IV Q6H [facility] Last Infusion: 04/04/23 08:27 Dose: Infused Documented By: ANABELLE Dextrose/Sodium Chloride (D5ns) 1,000 mls @ 80 mls/hr IVCONT .[id number] [facility] Last Admin: 04/03/23 21:45 Dose: 80 mls/hr Documented By: DEANDRA Fluconazole (Diflucan) 400 mg in 200 mls @ 100 mls/hr IV DAILY [facility] Last Infusion: 04/04/23 07:24 Dose: Infused Documented By: DEANDRA Hydromorphone HCl (Dilaudid) 10 mg in 50 mls @ 0 mls/hr IV .Q0M [facility]; Protocol Lorazepam (Lorazepam 2 Mg/Ml Vial) 1 mg IVPUSH Q6H PRN PRN Reason: anxiety/restlessness Methylprednisolone Sodium Succinate (Methylprednisolone Sod Succ 40 Mg/Ml Vial) 10 mg IVPUSH Q12H [facility] Last Admin: 04/04/23 09:44 Dose: 10 mg Documented By: ANABELLE Ondansetron HCl (Ondansetron Hcl 4 Mg/2 Ml Vial) 4 mg IVPUSH Q8H [facility] Last Admin: 04/04/23 05:24 Dose: 4 mg Documented By: DEANDRA Prochlorperazine Edisylate (Prochlorperazine Edisylate 10 Mg/2 Ml Vial) 5 mg IV Q4H PRN PRN Reason: Nausea and Vomiting Last Admin: 04/04/23 07:58 Dose: 5 mg Documented By: ANABELLE Sodium Chloride (0.9 % Sodium Chloride Flush 3 Ml Syringe) 3 ml IVFLUSH QSHIFT [facility] Last Admin: 04/04/23 07:59 Dose: 3 ml Documented By: ANABELLE Labs 04/03/23 06:38 04/03/23 06:38 Microbiology Microbiology Results: Microbiology 04/02/23 04:41 Blood Culture - Preliminary Blood - Central Line No growth after 48 hours. 04/02/23 04:02 Blood Culture - Preliminary Blood - Central Line Prelim: Yeast Gram Stain only Assessment and Plan (1) Aspiration pneumonia: Status: Acute Plan 68F PMH metastatic cervical CA with presumed peritoneal carcinomatosis, opiate dependence, mood disorder, presented with n/v, found to be hypoxic, ileus, allen and severe hypokalemia, hypomagnesemia Comfort measures for intractable abdominal pain 2/2 metastatic cervical cancer The patient and her HCP decided it is time for comfort measures as other measures not helping her getting any better DC IVF, TPN, Antibiotics, Labs, Vitals Dilaudid TRANSPORTATION MODELER Ativan PRN Zofran and Compazine prn for nausea reason for continued hospitalization comfort measures, is imminent, on dilaudid TRANSPORTATION MODELER which can not be done at any less acute setting at this point Quality Stroke Does the patient have a stroke diagnosis?: No VTE Prior VTE?: No VTE Risk Level:: Medical - moderate - high VTE Device Contraindication: N/A - Device Ordered VTE Drug Contraindication: N/A - Med Ordered
[2023-04-04] MEDS: LORazepam 2 MG/ML VIAL 1 MG IVPUSH ×2 (11:11→16:56)
[2023-04-04] MEDS: HYDROmorphone HCl/NS 10 MG/50 ML PIGGYBACK 1.5 MG IV ×2 (11:27→19:55)
--- NOTE | 2023-04-04 12:29 | MHC.CM.PN ---
EMR REVIEWED, PT NOW HELP DESK OPERATOR PER HOSPITALIST, CM WILL UPDATE [facility] AND FOLLOW.
--- NOTE | 2023-04-04 14:57 | HO.WOUND ---
Wound Consult: Initial 68yr old?F admitted to [facility] on - See progress notes and H&P for detailed history.? Wound consult placed for Sacral Wound Present on admission - Patient has since transitioned to Comfort Measures Only. Topical care instructions for comfort and dignity in place. Wound not assessed - photo review completed. ? Sacrum Etiology: ??Stage 2 Pressure Injury Present on Admission (Previously documented DTI last Admission) Wound Bed: partial thickness tissue loss noted Edges: irregular Goals of Treatment: ? Triad / Barrier Cream to protect from friction and allow for comfort. Recommendations: 1. Sacrum - Off Load Pressure - Cleanse with PH balance spray or wipes, pat dry. ?Apply thin layer of Triad to wound bed - only pat and dab no scrub and rub when soiling occurs. Reapply thin layer PRN after each episode of incontinence.
[2023-04-04] MEDS: Scopolamine 1.5 MG PATCH.TD.3 EAR-BEHIND (19:59)
[2023-04-04] MEDS: diazePAM 10 MG/2 ML CARTRIDGE 7.5 MG IVPUSH (21:24)
[2023-04-04] MEDS: Glycopyrrolate 0.2 MG/ML VIAL 0.1 MG IVPUSH (22:58)
[2023-04-05] MEDS: diazePAM 10 MG/2 ML CARTRIDGE 5 MG IVPUSH ×6 (02:12→22:46)
[2023-04-05] MEDS: Prochlorperazine Edisylate 10 MG/2 ML VIAL 5 MG IV ×2 (02:13→10:27)
[2023-04-05] MEDS: ondansetron HCL 4 MG/2 ML VIAL IVPUSH ×3 (06:40→19:39)
[2023-04-05 07:33] VITALS: RESP 16
--- NOTE | 2023-04-05 08:46 | MHC.CM.PN ---
EMR REVIEWED, PT REMAINS ON CANDY VENDOR AND IMMINENT PER HOSPITALIST PN, NO PLAN FOR TRANSFER TO SNF/HOME PT HAS NO PAYOR FOR HOSPICE AND FAMILY UNABLE TO CARE FOR PT AT HOME.
--- NOTE | 2023-04-05 09:42 | P.PNIM_ITS ---
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: KEY ACCOUNT MANAGER Objective Data Active Medications Acetaminophen (Acetaminophen Supp 650 Mg Supp.Rect) 650 mg CO Q6H PRN PRN Reason: Fever Diazepam (Diazepam 10 Mg/2 Ml Cartridge) 5 mg IVPUSH Q4H PRN PRN Reason: anxiety/restlessness Last Admin: 04/05/23 06:37 Dose: 5 mg Documented By: DEANDRA Hydromorphone HCl (Dilaudid) 10 mg in 50 mls @ 0 mls/hr IV .Q0M [facility]; Protocol Last Admin: 04/04/23 19:55 Dose: 0.3 mg/hr, 1.5 mls/hr Documented By: DEANDRA Ondansetron HCl (Ondansetron Hcl 4 Mg/2 Ml Vial) 4 mg IVPUSH Q8H [facility] Last Admin: 04/05/23 06:40 Dose: 4 mg Documented By: DEANDRA Prochlorperazine Edisylate (Prochlorperazine Edisylate 10 Mg/2 Ml Vial) 5 mg IV Q4H PRN PRN Reason: Nausea and Vomiting Last Admin: 04/05/23 02:13 Dose: 5 mg Documented By: DEANDRA Scopolamine (Scopolamine 1.5 Mg Patch.Td.3) 1.5 mg EAR-BEHIND Q72H [facility] Last Admin: 04/04/23 19:59 Dose: 1.5 mg Documented By: DEANDRA Sodium Chloride (0.9 % Sodium Chloride Flush 3 Ml Syringe) 3 ml IVFLUSH QSHIFT [facility] Last Admin: 04/04/23 23:50 Dose: Not Given Documented By: DEANDRA Non-Admin Reason: Previously Administered Labs 04/03/23 06:38 04/03/23 06:38 Microbiology Microbiology Results: Microbiology 04/02/23 04:02 Blood Culture - Preliminary Blood - Central Line Yeast 04/02/23 04:41 Blood Culture - Preliminary Blood - Central Line No growth after 48 hours. Assessment and Plan (1) Ileus: Status: Acute (2) Squamous cell carcinoma of cervix: Status: Acute (3) Metastatic cancer: Status: Acute Plan 68F PMH metastatic cervical CA with presumed peritoneal carcinomatosis, opiate dependence, mood disorder, presented with n/v, found to be hypoxic, ileus, allen and severe hypokalemia, hypomagnesemia Comfort measures for intractable abdominal pain 2/2 metastatic cervical cancer The patient and her HCP decided it is time for comfort measures as other measures not helping her getting any better DC IVF, TPN, Antibiotics, Labs, Vitals Dilaudid FOOD SERVICE ORDER CLERK Valium PRN Scopolamine Zofran and Compazine prn for nausea reason for continued hospitalization comfort measures, is imminent, on dilaudid FOOD SERVICE ORDER CLERK which can not be done at any less acute setting at this point Quality Stroke Does the patient have a stroke diagnosis?: No VTE Prior VTE?: No VTE Risk Level:: Medical - moderate - high VTE Device Contraindication: N/A - Device Ordered VTE Drug Contraindication: N/A - Med Ordered
[2023-04-05] MEDS: 0.9 % Sodium Chloride Flush 3 ML SYRINGE IVFLUSH ×3 (10:28→22:46)
--- NOTE | 2023-04-05 10:43 | MHC.CLN ---
PT REMAINS AUTOMOTIVE ALIGNMENT SPECIALIST CURRENTLY NPO DIET CAN BE CHANGED TO FEED FROM FLOOR AND COFFEE CART OFFERED TO FAMILY R/T AUTOMOTIVE ALIGNMENT SPECIALIST DTI COCCYX NOTED -WOUND DOCUMENTED FROM PREVIOUS ADMISSION PRIMARY GOAL IS COMFORT FOLLOWING WITH TEAM
[2023-04-05 12:00] VITALS: RESP 16
[2023-04-05 13:24] VITALS: RESP 19
[2023-04-05] MEDS: HYDROmorphone HCl 1 MG/ML SYRINGE IVPUSH ×4 (13:24→22:12)
[2023-04-05 15:22] VITALS: RESP 22
[2023-04-05 15:58] VITALS: RESP 16
[2023-04-05] MEDS: HYDROmorphone HCl/NS 10 MG/50 ML PIGGYBACK 3 MG IV (20:05)
[2023-04-05] MEDS: Scopolamine 1.5 MG PATCH.TD.3 EAR-BEHIND (20:19)
[2023-04-06] MEDS: ondansetron HCL 4 MG/2 ML VIAL IVPUSH ×3 (03:16→19:24)
[2023-04-06] MEDS: diazePAM 10 MG/2 ML CARTRIDGE 5 MG IVPUSH ×6 (03:16→21:18)
[2023-04-06] MEDS: HYDROmorphone HCl 1 MG/ML SYRINGE IVPUSH ×3 (03:30→19:24)
[2023-04-06 04:00] VITALS: PULSE 89; RESP 14; TEMP 36.6
--- NOTE | 2023-04-06 08:17 | HO.PM.IMPN ---
Subjective Subjective Date of Service: 04/06/23 Interval History: Seen and evaluated this morning Son at bedside more comfortable but becomes distressed every 2 hours requiring extra Dilaudid dose sleeping, not vomiting Review of Systems Review of Systems: Yes Unobtainable due to mental condition Physical Exam Vital Signs: Vital Signs: Last Vital Signs Temp 97.8 F 04/06/23 04:00 Pulse 89 04/06/23 04:00 Resp 14 04/06/23 04:00 BP 115/69 04/04/23 07:08 Pulse Ox 93 04/04/23 07:08 O2 Del Method High Flow Nasal C annula 04/05/23 07:33 O2 Flow Rate 5 04/04/23 02:58 BMI result Body Mass Index 17.3 Const: 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 Objective Data Active Medications Acetaminophen (Acetaminophen Supp 650 Mg Supp.Rect) 650 mg TN Q6H PRN PRN Reason: Fever Diazepam (Diazepam 10 Mg/2 Ml Cartridge) 5 mg IVPUSH Q3H PRN PRN Reason: anxiety/restlessness Last Admin: 04/06/23 06:14 Dose: 5 mg Documented By: FAWN Hydromorphone HCl (Hydromorphone Hcl 1 Mg/Ml Syringe) 1 mg IVPUSH Q2H PRN; Protocol PRN Reason: Pain, Severe (Pain Scale 7-10) Last Admin: 04/06/23 06:14 Dose: 1 mg Documented By: FAWN Hydromorphone HCl (Dilaudid) 10 mg in 50 mls @ 0 mls/hr IV .Q0M [facility]; Protocol Last Admin: 04/05/23 20:05 Dose: 0.6 mg/hr, 3 mls/hr Documented By: FAWN Ondansetron HCl (Ondansetron Hcl 4 Mg/2 Ml Vial) 4 mg IVPUSH Q8H [facility] Last Admin: 04/06/23 03:16 Dose: 4 mg Documented By: FAWN Prochlorperazine Edisylate (Prochlorperazine Edisylate 10 Mg/2 Ml Vial) 5 mg IV Q4H PRN PRN Reason: Nausea and Vomiting Last Admin: 04/05/23 10:27 Dose: 5 mg Documented By: ANABELLE Scopolamine (Scopolamine 1.5 Mg Patch.Td.3) 1.5 mg EAR-BEHIND Q72H [facility] Last Admin: 04/05/23 20:19 Dose: 1.5 mg Documented By: FAWN Sodium Chloride (0.9 % Sodium Chloride Flush 3 Ml Syringe) 3 ml IVFLUSH QSHIFT [facility] Last Admin: 04/05/23 22:46 Dose: 3 ml Documented By: FAWN Labs 04/03/23 06:38 04/03/23 06:38 Microbiology Microbiology Results: Microbiology 04/02/23 04:02 Blood Culture - Preliminary Blood - Central Line Yeast Assessment and Plan (1) Metastatic cancer: Status: Acute (2) SBO (small bowel obstruction): Status: Acute Plan 68F PMH metastatic cervical CA with presumed peritoneal carcinomatosis, opiate dependence, mood disorder, presented with n/v, found to be hypoxic, ileus, allen and severe hypokalemia, hypomagnesemia Comfort measures for intractable abdominal pain 2/2 metastatic cervical cancer The patient and her HCP decided it is time for comfort measures as other measures not helping her getting any better Dilaudid drip, increase rate to 1mg\hr Dilaudid IV PRN Valium PRN , change to Q3 PRN Scopolamine Zofran and Compazine prn for nausea reason for continued hospitalization comfort measures, is imminent, on dilaudid RIVET TOSSER which can not be done at any less acute setting at this point Quality Stroke Does the patient have a stroke diagnosis?: No VTE Prior VTE?: No VTE Risk Level:: Medical - moderate - high VTE Device Contraindication: N/A - Device Ordered VTE Drug Contraindication: N/A - Med Ordered
[2023-04-06] MEDS: 0.9 % Sodium Chloride Flush 3 ML SYRINGE IVFLUSH ×2 (10:01→13:12)
[2023-04-06] MEDS: HYDROmorphone HCl/NS 10 MG/50 ML PIGGYBACK 5 MG IV ×2 (11:07→21:07)
[2023-04-07] MEDS: diazePAM 10 MG/2 ML CARTRIDGE 5 MG IVPUSH (01:20)
[2023-04-07] MEDS: HYDROmorphone HCl 1 MG/ML SYRINGE IVPUSH (02:56)
[2023-04-07] MEDS: ondansetron HCL 4 MG/2 ML VIAL IVPUSH (03:06)
--- NOTE | 2023-04-07 04:27 | PM.EVENT ---
Event Note Date of Service: 04/07/23 Event Note: note I was contacted to patient's bedside to pronounce that patient has . No spontaneous movements were present. There was not respond to tactile stimuli. Pupils were mid dilated and fixed. No breath sounds were appreciated over either lung. No carotid pulses were palpable. No heart sounds were auscultated over entire pericardium. Patient pronounced at April 07, 2023/3:34 AM. Patient was DNR and DNI on comfort care. No autopsy. Patient's family and patient's nurse were present in the patient's room. Our condolences were provided to the patient's family. Time Spent With Patient Time: Total time managing care of this patient today ____ minutes.
--- NOTE | 2023-04-07 08:14 | P.DS_ITS ---
DS: Providers Provider Date of Service: 04/07/23 Date of admission: 04/02/23 01:21 Primary care physician: Dean Villalba MD Consults: 04/02/23 19:36 Consult to Wound Care Routine Reason for consultation: stg 2 to coccyx Has provider been notified: No DS: Diagnosis Discharge Diagnosis (1) Metastatic cancer: Status: Acute (2) SBO (small bowel obstruction): Status: Acute (3) JEREMIAS (acute kidney injury): Status: Acute (4) Adult failure to thrive: Status: Acute (5) Nausea & vomiting: Status: Acute (6) Aspiration pneumonia: Status: Acute (7) Squamous cell carcinoma of cervix: Status: Acute (8) Acute respiratory failure with hypoxia: Status: Acute (9) Hypomagnesemia: Status: Acute (10) Acute hypokalemia: Status: Acute DS: Summary Hospital Course Hospital Course: Admission note HPI Evelyn Marin is a 68 years old woman with past medical history significant for metastatic squamous cell carcinoma of cervix (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 Patient was recently discharged from this hospital after she was hospitalized with diagnosis of intractable nausea and vomiting with small bowel obstruction (surgical service did not recommend surgical intervention). It seems like her prognosis poor and was sent home to continue TPN (via PICC line; unfortunately, this was not facilitated) with VNA and medication to control her symptoms such as Reglan and morphine. The patient was also found to have C diff colitis and was treated with a course of vancomycin p.o. which resolved the diarrhea (sent home to complete 4 more days but it is unclear to me if she completed this course). HPI was obtained from chart review an emergency provider who I spoke with patient's son as the patient is currently quite sedated after receiving treatment with Valium and opiates. MOLST form indicates patient is DNR and DNI with no hospitalization however son changed his mind and would like patient to be hospitalized for further treatment. Oncology Service suggested hospice care at this stage as there is no plan for chemotherapy -due to patient's weight loss and deconditioning. The plan was for the patient and the family to have hospice discussion with VNA after discharge. Patient is sedated but unable to answers simple questions. She stated she has abdominal pain and nausea. In the ED, she was found to have stable vital signs. Blood workup is remarkable for leukocytosis of 18.7. There is hyponatremia, 132 and CO2 is elevated. Creatinine is 1.79 (it was 0.53). Troponin is elevated, 37.7. Abdominal pelvis CT scan w/o IV contrast was obtained and showed prominent fluid distention of the stomach and small bowel (similar to slightly less prominent than prior - residual this is a small-bowel obstruction versus ileus), regions of predominantly ground-glass opacity at the lung bases (aspiration or infectious/inflammatory etiology) + redemonstrated findings calcified right adrenal mass. Hospital course The patient was admitted for evaluation of acute hypoxic respiratory failure fro m aspiration pneumonia with hypotension and severe calorie-protein malnutrition for IV antibiotics, TPN and IV fluids. she was also found to have electrolytes imbalance which were corrected. she continued to have nausea, vomiting with associated abdominal pain. The patient then wanted to be on Comfort measures for intractable abdominal pain secondary to metastatic cervical cancer. The patient and her HCP decided it is time for comfort measures as other measures not helping her getting any better. Dilaudid drip, Dilaudid IV PRN, Valium PRN and Scopolamine. Zofran and Compazine prn for nausea. she became much more comfortable. family remained next to her until she on 04/07/2023 at 3:34 am. Time Attestation Discharge coordination time: Greater than 30 minutes Quality: Safe Use of Opioids Does Pt have an Active Cancer Diagnosis on the Problem List?: Yes Opioid Measure Date for [facility] Report: 03/08/23 Opioid Measure Time for [facility] Report: 08:23 Quality: Stroke Does the patient have a stroke diagnosis?: No Physical Exam Vital Signs: Vital Signs: Last Vital Signs Temp 97.8 F 04/06/23 04:00 Pulse 89 04/06/23 04:00 Resp 14 04/06/23 04:00 BP 115/69 04/04/23 07:08 Pulse Ox 93 04/04/23 07:08 O2 Del Method High Flow Nasal C annula 04/05/23 07:33 O2 Flow Rate 5 04/04/23 02:58 BMI result Body Mass Index 17.3 Const: Other: DS: Data Data Completed and Pending Completed studies during hospitalization [Text1]: Procedures Fluoroscopy of Superior Vena Cava, Guidance (03/15/23) Insertion of Infusion Device into Superior Vena Cava, Percutaneous Approach (03/15/23) Labs on day of discharge: Preliminary micro results at discharge 04/02/23 04:02 Blood Culture - Preliminary Blood - Central Line Yeast Imaging Chest x-ray: Radiologist's impression: ITS Impressions Chest X-Ray 04/01/23 21:09 IMPRESSION: Unremarkable chest exam. Abdomen/Pelvis CT 04/01/23 23:15 IMPRESSION: 1. Prominent fluid distention of the stomach and small bowel, overall similar to slightly less prominent compared to 03/15/2023. Appearance could be reflective of a degree of residual distal small bowel obstruction versus ileus. Intraluminal contrast material remains present throughout the colon without disproportionate dilation. The distal sigmoid colon and rectum appear collapsed; it is difficult to determine whether prominent soft tissue surrounding the intraluminal contrast is due to colonic wall thickening or malignant thickening related to the reported history of cervical neoplasm. 2. Regions of predominantly groundglass opacity at the lung bases, greatest in the lower lobes, which could be due to aspiration or an infectious/inflammatory etiology. 3. Additional redemonstrated findings as noted above, including coarsely calcified right adrenal mass. Head CT 04/01/23 23:15 IMPRESSION: No acute intracranial pathology. Discharge Plan Discharge Anticipated Discharge Date/Time: 04/07/23 03:34 Patient Disposition: Discharge Diagnosis: Metastatic cancer. Referrals: Physician,Unknown J [Physician] - 1 Week Discharge Medications: No Action (DME) [employer] Adult Brief Misc See Rx Instructions .Route Qty: 60 2RF Rx Instructions: 2 daily As directed, 30 days gabapentin 600 mg tablet 600 mg PO DAILY 30 Days Qty: 30 3RF Rx Instructions: at bedtime ondansetron 4 mg tablet,disintegrating 4 mg PO Q12H PRN (Reason: nausea and vomiting) 30 Days Qty: 20 0RF lorazepam 1 mg tablet 2 mg PO BID PRN (Reason: anxiety) 15 Days Qty: 60 0RF Rx Instructions: [employer] Verified cholecalciferol (vitamin D3) [Vitamin D3] 50 mcg (2,000 unit) capsule 50 mcg PO DAILY celecoxib 200 mg capsule 200 mg PO BID PRN (Reason: pain) alendronate 70 mg tablet 70 mg PO MUELLER@0900 prednisone 5 mg tablet 5 mg PO BID ferrous sulfate 325 mg (65 mg iron) tablet 325 mg PO BID sertraline 50 mg tablet 50 mg PO DAILY sennosides [senna] 8.6 mg tablet 17.2 mg PO BEDTIME PRN (Reason: Constipation) pantoprazole 40 mg tablet,delayed release (DR/EC) 40 mg PO DAILY@0630 docusate sodium 100 mg capsule 100 mg PO BID gabapentin 300 mg capsule 300 mg PO BID@0900,1200 polyethylene glycol 3350 17 gram Powder In Packet 17 g PO DAILY magnesium oxide 400 mg magnesium Tablet 400 mg PO DAILY Rx Instructions: X 5 DAYS metoclopramide HCl 5 mg/5 mL solution 10 mg PO TIDWM Qty: 1000 0RF oxycodone [OxyContin] 20 mg tablet,oral only,ext.rel.12 hr 20 mg PO BID Qty: 60 0RF Rx Instructions: Partial Fill upon patient request. morphine 10 mg/5 mL solution 10 mg PO Q4-6H PRN (Reason: pain (scale score 7-10)) Qty: 500 0RF Rx Instructions: Partial Fill upon patient request. (DME) cane Device See Rx Instructions .Route Qty: 1 0RF Rx Instructions: As directed (DME) Ultra-Light Rollator Misc See Rx Instructions .Route Qty: 1 0RF Rx Instructions: Rollator walker with seat and brakes. Daily as directed. 999 days potassium chloride 10 mEq capsule, extended release 10 meq PO BID 15 Days Qty: 30 0RF Rx Instructions: X 7 DAYS
== END 2023-04-07 12:02 | disposition expired | DRG 177 ==
LOC: HO.ED 04-02 00:55 → HO.EDOVER 04-02 01:27 → HO.IMC 04-02 07:43
PROVIDERS: Internal Medicine; Nurse Practitioner Family; Admitting Provider Internal Medicine; Emergency Provider Emergency Medicine; PCP Family Medicine; Visit Provider Student in an Organized Health Care Education/Training Program
DX: J69.0 Pneumonitis due to inhalation of food and vomit (principal); E43 Unspecified severe protein-calorie malnutrition; G92.8 Other toxic encephalopathy; J96.01 Acute respiratory failure with hypoxia; Z68.1 Body mass index [BMI] 19.9 or less, adult; C78.6 Secondary malignant neoplasm of retroperitoneum and peritoneum; K56.7 Ileus, unspecified; F11.20 Opioid dependence, uncomplicated; N17.9 Acute kidney failure, unspecified; E87.1 Hypo-osmolality and hyponatremia; C53.9 Malignant neoplasm of cervix uteri, unspecified; G89.3 Neoplasm related pain (acute) (chronic); Z51.5 Encounter for palliative care; I95.9 Hypotension, unspecified; E86.0 Dehydration; E87.6 Hypokalemia; E83.42 Hypomagnesemia; M05.9 Rheumatoid arthritis with rheumatoid factor, unspecified; E88.A Wasting disease (syndrome) due to underlying condition; R62.7 Adult failure to thrive; Z66 Do not resuscitate; Z20.822 Contact with and (suspected) exposure to COVID-19; Z87.891 Personal history of nicotine dependence; Z79.899 Other long term (current) drug therapy
CPT/HCPCS: 36415; 70450; 71045; 74176; 80048; 80053; 80076; 82040; 83605; 83735; 84100; 84478; 84484; 85025; 85027; 87040; 87077; 87502; 87635; 93005; 99285; J0737; J1160; J1170; J1450; J1596; J1644; J2060; J2270; J2405; J2543; J2920; J3360; J3475; J3480

== ENCOUNTER → 2023-04-01 19:46 | Outpatient (BNV) | payer MEDICARE, SELFPAY | PROVIDERS: Admitting Provider Internal Medicine; Emergency Provider Emergency Medicine; PCP Family Medicine; Visit Provider Internal Medicine Cardiovascular Disease | DX: R94.31 Abnormal electrocardiogram [ECG] [EKG] (principal) | CPT/HCPCS: 93010 ==

== ENCOUNTER → 2023-04-02 01:21 | Outpatient (BNV) | payer MEDICARE, SELFPAY | PROVIDERS: Admitting Provider Internal Medicine; Emergency Provider Emergency Medicine; Visit Provider Internal Medicine | DX: C79.9 Secondary malignant neoplasm of unspecified site (principal); K56.609 Unspecified intestinal obstruction, unspecified as to partial versus complete obstruction; N17.9 Acute kidney failure, unspecified; R62.7 Adult failure to thrive; R11.14 Bilious vomiting; J69.0 Pneumonitis due to inhalation of food and vomit; C53.9 Malignant neoplasm of cervix uteri, unspecified; J96.01 Acute respiratory failure with hypoxia; E83.42 Hypomagnesemia; E87.6 Hypokalemia | CPT/HCPCS: 99223; 99231; 99233; 99238; 99499 ==